=== PATIENT | female | born 1950 | race Caucasian/White ===

== ENCOUNTER 2023-03-06 09:52 | Outpatient (RCR) | payer MEDICARE, SELFPAY | END 2023-05-08 16:05 | disposition home or self-care (01) | LOC: PT 09:52 | PROVIDERS: PCP Family Medicine; Visit Provider Psychiatry & Neurology Neurology | DX: M16.12 Unilateral primary osteoarthritis, left hip (principal); R53.1 Weakness; M54.17 Radiculopathy, lumbosacral region | CPT/HCPCS: 97012; 97110; 97140 ==

== ENCOUNTER 2023-03-07 10:02 | Outpatient (OUT) | payer MEDICARE, SELFPAY ==
--- NOTE | 2023-03-07 10:07 | MM_ITS ---
Patient: DARYL KRISHNAN Exam Date: 03/07/2023 : 1950 Gender:F Ordering : DR Sean Bernabe . Admission #: [id number] Family : DR KALLIE CHASE M.D. Order #: [id number] CLICK HERE TO VIEW EXAM RADIOLOGY REPORT PROCEDURE: MM TOMOSYNTHESIS SCREENING BI COMPARISON: MG MAMM SCREEN 3D ARIANA CAD, 02/19/2021. INDICATIONS: Breast Cancer Screening By Mammogram Z12.31 Calculator Name NCI Breast Cancer Risk Assessment Tool 5 Year Breast Cancer Risk 3.50% Lifetime Breast Cancer Risk 8.80% Personal Breast Cancer No Personal Ovarian Cancer No Treatments None Family Cancers Sister with breast cancer at age 55. LOCATION: [facility] BREAST COMPOSITION: Extremely dense, which lowers the sensitivity of mammography. FINDINGS: DIAGNOSTIC CATEGORY 1--NEGATIVE. RIGHT BREAST: No significant suspicious finding. No significant change has occurred. LEFT BREAST: No significant suspicious finding. No significant change has occurred. RECOMMENDATIONS: ROUTINE MAMMOGRAM AND CLINICAL EVALUATION IN 12 MONTHS. PLEASE NOTE: A NORMAL MAMMOGRAM DOES NOT EXCLUDE THE POSSIBILITY OF BREAST CANCER. A CLINICALLY SUSPICIOUS PALPABLE LUMP SHOULD BE BIOPSIED. Dictated by: Jef Krishnan M.D. on 03/07/2023 at 15:21 Approved by: Jef Krishnan M.D. on 03/07/2023 at 15:24
--- NOTE | 2023-03-07 10:09 | XR_ITS ---
[address] [address] Patient Name: DARYL SABILLON MRN: [id number] date: 1950 Sex: F Assigned Patient Location: [facility] Current Patient Location: [facility] Accession/Order Number: [id number] Exam Date: 03/07/2023 10:20 Report Date: 03/07/2023 11:10 At the request of: PASTOR CRISTINA Procedure: XR DEXA axial skeleton EXAMINATION: XR DEXA axial skeleton HISTORY: Post Menopausal Z78.0 COMPARISON: DEXA bone densitometry 02/19/2021 TECHNIQUE: Dual-energy X-ray absorptiometry (DXA) was performed. FINDINGS: SPINE ANALYSIS: Average bone mineral density is 0.818 g/cm2. T-score (standard deviation relative to young adult mean): -3.0 . +1.4% change since prior study. HIP ANALYSIS: Lowest bone mineral density is within the right femoral trochanter, 0.508 g/cm2. T-score (standard deviation relative to young adult mean): -3.0 . -11.4% change since prior study. IMPRESSION: World [employer] Classification: Osteoporosis - High Fracture Risk Electronically authenticated by: JACK SABILLON Date: 03/07/2023 11:10
== END 2023-03-07 10:03 ==
LOC: MAMMO 10:03
PROVIDERS: PCP Family Medicine; Visit Provider Obstetrics & Gynecology
DX: Z12.31 Encounter for screening mammogram for malignant neoplasm of breast (principal); Z80.3 Family history of malignant neoplasm of breast; M81.0 Age-related osteoporosis without current pathological fracture; Z78.0 Asymptomatic menopausal state
CPT/HCPCS: 77063; 77067; 77080

== ENCOUNTER 2023-05-07 13:59 | Outpatient (OUT) | payer MEDICARE, SELFPAY ==
--- NOTE | 2023-05-07 14:49 | CA_ITS ---
Patient: DARYL SABILLON Exam Date: 05/07/2023 : 1950 Gender:F Ordering : BRENNA BROUSSARD Admission #: [id number] Family : ELVA DARDEN Order #: [id number] CLICK HERE TO VIEW EXAM ECHOCARDIOGRAM REPORT PROCEDURE: CA ECHO DOPPLER COMPLETE INDICATIONS: Hx: MV replacement, Mitral valve insufficiency COMPARISON: None. DESCRIPTION: COMPLETE ECHOCARDIOGRAM Real-time transthoracic echocardiography with 2D, M-mode, spectral and color flow Doppler performed. QUALITY: Technical quality was good. LEFT VENTRICLE: Normal chamber size. Mild concentric left ventricular hypertrophy. Global left ventricular systolic function is normal. LV EF: Estimated left ventricular ejection fraction is 75%. DIASTOLIC: Normal diastolic function. ATRIAL SEPTUM: LEFT ATRIUM: Mild dilatation. RIGHT ATRIUM: Mild dilatation. RIGHT VENTRICLE: Normal chamber size. Normal right ventricular systolic function. TRICUSPID VALVE: Normal mobility and thickness. No stenosis with mild to moderate regurgitation. No evidence of pulmonary hypertension. RVSP 28 mmHg MITRAL VALVE: No evidence of mitral valve stenosis. Mean diastolic gradient is 2 mmHg at a heart rate of 55 bpm. Trivial mitral regurgitation. Mitral valve ring repair is well seated in the Mitral position. Thickening of the anterior mitral leaflet. AORTIC VALVE: Normal trileaflet appearance. Mildly calcified aortic valve. Normal leaflet mobility. No evidence of aortic valve stenosis. Mild aortic regurgitation. AORTIC ROOT: Normal diameter and appearance. PULMONIC VALVE: Normal thickness and mobility. No stenosis. Mild regurgitation. PERICARDIUM: No evidence of pericardial effusion. IVC: Collapses with inspirations. Normal size. PLEURA: CONCLUSION: 1. Mild concentric left regular hypertrophy with normal systolic function. LVEF is 75%. 2. Normal right ventricular size and systolic function. 3. Mitral valve is status post ring repair with no stenosis and no significant regurgitation. 4. Mild aortic and pulmonic regurgitation. 5. Mild to moderate tricuspid regurgitation. 6. Normal right-sided pressures. 7. No pericardial effusion. Adult Echocardiography Procedure Report Left Ventricle LVEDD (3.7 - 5.6 cm): 3.81 cm LVESD (2.2 - 4.0 cm): 2.41 cm LVIVS thickness (0.6 - 1.2 cm): 1.09 cm LVPW thickness (0.5 - 1.0 cm): 1.11 cm e': 0.10 m/s E - e': 10.02 LVOT Max Gradient: 4.99 mm[Hg] LVOT Area (cm2): 1.12 m/s Peak Velocity (LVOT): 1.12 m/s Mean Velocity (LVOT): 0.65 m/s LVOT Diameter 1.90 cm Left Ventricular Ejection Fraction: 75 % Left Atrium LA Volume Index (2D A2C): 43.19 ml/m2 Left Atrium Systolic Dimension: 3.62 cm Mitral Valve MV E to A Ratio: 1.14 Mitral Valve A-Wave Peak Velocity: 0.90 m/s Mitral Valve E-Wave Peak Velocity: 1.03 m/s Right Ventricle RV Internal Diastolic Dimension: 3.08 cm Aorta AO Root Diam: 3.02 cm Ascending Ao Diam: 2.57 cm Aortic Valve AoV Area (Peak Andrea): 2.60 cm2, 2.60 cm2 AoV Area (VTI): 2.79 cm2, 2.79 cm2 Deceleration Charlotte: 1.21 m/s2 Pressure Half-Time: 916.50 ms Peak Velocity(Antegrade Flow): 1.22 m/s Peak Gradient(Antegrade Flow): 5.93 mm[Hg] Mean Velocity(Antegrade Flow): 0.90 m/s Mean Gradient(Antegrade Flow): 3.53 mm[Hg] Velocity Time Integral: 25.77 cm Tricuspid Valve Peak Velocity (Regurgitant Flow): 2.40 m/s, 2.53 m/s, 2.13 m/s Pulmonic Valve Peak Velocity: 0.79 m/s Peak Gradient: 2.35 mm[Hg], 2.60 mm[Hg] Right Atrium Right Atrium Systolic Pressure: 48.52 ml, 48.52 ml Dictated by: Rodo Vallejo M.D. on 05/08/2023 at 17:05 Approved by: Rodo Vallejo M.D. on 05/08/2023 at 17:10
== END 2023-05-07 14:00 | disposition home or self-care (01) ==
LOC: CARD 13:59
PROVIDERS: PCP Family Medicine; Visit Provider Internal Medicine Cardiovascular Disease
DX: I34.0 Nonrheumatic mitral (valve) insufficiency (principal); Z95.2 Presence of prosthetic heart valve
CPT/HCPCS: 93306

== ENCOUNTER 2023-05-14 16:44 | Emergency (ER) | payer MEDICARE, SELFPAY ==
[2023-05-14 16:52] VITALS: BP 139/83; PULSE 68; RESP 14; TEMP 36.6; O2SAT 99; BMI 18.9
--- NOTE | 2023-05-14 17:08 | ED.GENADUL1 ---
Documented by User: ARINA Swift 05/14/23 18:35 HPI - General Adult General Chief complaint: Extremity Injury, Upper Stated complaint: UPPER EXTREMITY SWELLING, BITE Time Seen by Provider: 05/14/23 17:07 Source: patient Mode of arrival: walk-in Limitations: no limitations History of Present Illness HPI narrative: patient is a 72-year-old female who presents to the emergency department for the evaluation of increasing swelling and redness to her right upper extremity after a sting to the right index finger at home. She states approximately three hours ago she was stung by something on her right index finger, she states shortly after she developed swelling and redness of the fingers and hand. She states in the last hour she was concerned because she has noted hives and itching extending up the right arm and her axilla feels swollen. She denies any throat swelling, difficulty breathing or wheezing. No medications were taken prior to arrival. She has not lost sensation to the right upper extremity. Related Data Previous Rx's Medication Instructions Recorded famotidine 20 mg tablet (Pepcid) 20 mg PO BID #10 tabs 05/14/23 hydroxyzine HCl 25 mg tablet 25 mg PO Q6H PRN itching #20 tabs 05/14/23 methylprednisolone 4 mg tablets in See Rx Instructions .Route 05/14/23 a dose pack (Medrol (Archie)) .COMPLEX #21 ea Allergies Allergy/AdvReac Type Severity Reaction Status Date / Time keflex Allergy Uncoded 05/14/23 16:51 Review of Systems ROS Constitutional Denies: fever or chills Ears, nose, mouth, and throat Denies: throat pain Cardiovascular Denies: chest pain Respiratory Denies: shortness of breath, cough or wheezing Gastrointestinal Denies: nausea or vomiting Musculoskeletal Denies: back pain Integumentary/Breast Reports: rash and redness Allergic/Immunologic Reports: hives; Denies: throat swelling, tongue swelling, facial swelling or wheezing PFSH PFSH Social History Smoking status: Never smoker Exam Narrative Exam Narrative: Gen.: Awake, alert, in no distress Head: Normocephalic, atraumatic ENT: Moist mucous membranes; no swelling of the lips or tongue noted. Airway widely open and patent. No stridor Respiratory: No respiratory distress, lungs clear bilaterally; no wheezing or stridor Cardio: Regular rate and rhythm Extremities: Moves extremities equally Psych: Normal mood and affect Neuro: No focal neuro deficit Skin: Warm, dry. right hand is diffusely edematous and erythematous extending to the wrist. Small raised area noted to the right index finger with no evidence of retained stinger. No drainage noted. Normal flexion and extension of the fingers of the right hand. 2+ right radial pulse. Urticaria noted to the volar aspect of the right forearm with mild edema noted in the right axilla. No open wounds or drainage. Constitutional Vital Signs, click to edit/add: Last Vital Signs Temp 98 F 05/14/23 16:52 Pulse 68 05/14/23 16:52 Resp 14 05/14/23 16:52 BP 139/83 05/14/23 16:52 Pulse Ox 98 05/14/23 19:00 O2 Del Method Room Air 05/14/23 19:00 Course Vital Signs Vital signs: Vital Signs Temperature 98 F 05/14/23 16:52 Pulse Rate 68 05/14/23 16:52 Respiratory Rate 14 05/14/23 16:52 Blood Pressure 139/83 05/14/23 16:52 Pulse Oximetry 99 05/14/23 16:52 Oxygen Delivery Method Room Air 05/14/23 16:52 Temperature 98 F 05/14/23 16:52 Pulse Rate 68 05/14/23 16:52 Respiratory Rate 14 05/14/23 16:52 Blood Pressure 139/83 05/14/23 16:52 Pulse Oximetry 98 05/14/23 19:00 Oxygen Delivery Method Room Air 05/14/23 19:00 Medical Decision Making Lab Data Labs: patient treated with IV fluids, Solu-Medrol, Pepcid. On reevaluation by attending physician, swelling to the right axilla has improved. Patient states that she can see her knuckles, she was encouraged to elevate the hand over the next day will be treated for localized ALLERGIC reaction and urticaria with Medrol Dosepak, antihistamines, Pepcid. Follow-up with PCP and return to the Emergency Room if symptoms change or worsen. Discharge Plan Discharge Chief Complaint: Extremity Injury, Upper Clinical Impression: Urticaria, Swelling of right hand, Insect sting Patient Disposition: Home, Self-Care Time of Disposition Decision: 18:34 Condition: Good Prescriptions / Home Meds: New famotidine [Pepcid] 20 mg tablet 20 mg PO BID Qty: 10 0RF hydroxyzine HCl 25 mg tablet 25 mg PO Q6H PRN (Reason: itching) Qty: 20 0RF methylprednisolone [Medrol (Archie)] 4 mg tablets,dose pack See Rx Instructions .ROUTE .COMPLEX Qty: 21 0RF Rx Instructions: Taper as directed Instructions: Urticaria (ED), Insect Bite or Sting (ED) Stand Alone Forms: Portal Instructions Referrals: Anahi Branch MD [Primary Care Provider] - 1 week Discharge Date/Time: 05/14/23 19:07 Documented by User: Aden Monroe MD 05/14/23 19:49 HPI - General Adult General Chief complaint: Extremity Injury, Upper Stated complaint: UPPER EXTREMITY SWELLING, BITE Time Seen by Provider: 05/14/23 17:07 Related Data Previous Rx's Medication Instructions Recorded famotidine 20 mg tablet (Pepcid) 20 mg PO BID #10 tabs 05/14/23 hydroxyzine HCl 25 mg tablet 25 mg PO Q6H PRN itching #20 tabs 05/14/23 methylprednisolone 4 mg tablets in See Rx Instructions .Route 05/14/23 a dose pack (Medrol (Archie)) .COMPLEX #21 ea Allergies Allergy/AdvReac Type Severity Reaction Status Date / Time keflex Allergy Uncoded 05/14/23 16:51 PFSH PFS Social History Smoking status: Never smoker Exam Narrative Exam Narrative: Gen.: Awake, alert, in no distress Head: Normocephalic, atraumatic ENT: Moist mucous membranes; no swelling of the lips or tongue noted. Airway widely open and patent. No stridor Respiratory: No respiratory distress, lungs clear bilaterally; no wheezing or stridor Cardio: Regular rate and rhythm Extremities: Moves extremities equally Psych: Normal mood and affect Neuro: No focal neuro deficit Skin: Warm, dry. right hand is diffusely edematous and erythematous extending to the wrist. Small raised area noted to the right index finger with no evidence of retained stinger. No drainage noted. Normal flexion and extension of the fingers of the right hand. 2+ right radial pulse. Urticaria noted to the volar aspect of the right forearm with mild edema noted in the right axilla. No open wounds or drainage.Patient has no mucous membrane involvement of any rash or hives. Constitutional Vital Signs, click to edit/add: Last Vital Signs Temp 98 F 05/14/23 16:52 Pulse 68 05/14/23 16:52 Resp 14 05/14/23 16:52 BP 139/83 05/14/23 16:52 Pulse Ox 98 05/14/23 19:00 O2 Del Method Room Air 05/14/23 19:00 Course Vital Signs Vital signs: Vital Signs Temperature 98 F 05/14/23 16:52 Pulse Rate 68 05/14/23 16:52 Respiratory Rate 14 05/14/23 16:52 Blood Pressure 139/83 05/14/23 16:52 Pulse Oximetry 99 05/14/23 16:52 Oxygen Delivery Method Room Air 05/14/23 16:52 Temperature 98 F 05/14/23 16:52 Pulse Rate 68 05/14/23 16:52 Respiratory Rate 14 05/14/23 16:52 Blood Pressure 139/83 05/14/23 16:52 Pulse Oximetry 98 05/14/23 19:00 Oxygen Delivery Method Room Air 05/14/23 19:00 Medical Decision Making Lab Data Labs: patient treated with IV fluids, Solu-Medrol, Pepcid. On reevaluation by attending physician, swelling to the right axilla has improved. Patient states that she can see her knuckles, she was encouraged to elevate the hand over the next day will be treated for localized ALLERGIC reaction and urticaria with Medrol Dosepak, antihistamines, Pepcid. Follow-up with PCP and return to the Emergency Room if symptoms change or worsen. I, Dr Monroe, have reviewed the above progress note and course of action in the ER; agree with the above. I have personally seen and evaluated this patient, gone over history and physical, and discussed disposition and treatment plan with the patient. Discharge Plan Discharge Chief Complaint: Extremity Injury, Upper Clinical Impression: Urticaria, Swelling of right hand, Insect sting Patient Disposition: Home, Self-Care Time of Disposition Decision: 18:34 Condition: Good Prescriptions / Home Meds: New famotidine [Pepcid] 20 mg tablet 20 mg PO BID Qty: 10 0RF hydroxyzine HCl 25 mg tablet 25 mg PO Q6H PRN (Reason: itching) Qty: 20 0RF methylprednisolone [Medrol (Archie)] 4 mg tablets,dose pack See Rx Instructions .ROUTE .COMPLEX Qty: 21 0RF Rx Instructions: Taper as directed Instructions: Urticaria (ED), Insect Bite or Sting (ED) Stand Alone Forms: Portal Instructions Referrals: Anahi Branch MD [Primary Care Provider] - 1 week Discharge Date/Time: 05/14/23 19:07
[2023-05-14] MEDS: METHYLPREDNISOLONE SOD SUCC PF 125 MG/2 ML VIAL IVP (17:31)
[2023-05-14] MEDS: 0.9 % SODIUM CHLORIDE 1,000 ML 250 ML IV (17:31)
[2023-05-14] MEDS: FAMOTIDINE/PF 20 MG/2 ML VIAL IV (17:31)
[2023-05-14 19:00] VITALS: O2SAT 98
== END 2023-05-14 19:07 | disposition home or self-care (01) ==
PROVIDERS: Emergency Provider Emergency Medicine; PCP Family Medicine
DX: T63.481A Toxic effect of venom of other arthropod, accidental (unintentional), initial encounter (principal); L50.9 Urticaria, unspecified; R22.31 Localized swelling, mass and lump, right upper limb
CPT/HCPCS: 96374; 96375; 99284; J2930

== ENCOUNTER 2023-10-03 15:35 | Emergency (ER) | payer MEDICARE, SELFPAY ==
[2023-10-03 15:38] VITALS: BP 160/83; PULSE 67; RESP 18; TEMP 36.6; O2SAT 97; BMI 18.5
--- NOTE | 2023-10-03 15:51 | ECG_ITS ---
[facility] Test Date: 2023-10-03 Pat Name: DARYL SABILLON Department: Room: - Gender: Female [employer] Professional: : 1950 Requested By: KALLIE CHASE Order Number: [id number] Reading MD: KYLIE LORD Measurements Intervals Myra Rate: 67 P: 63 SC: 176 QRS: 16 QRSD: 82 T: 63 QT: 390 QTc: 406 Interpretive Statements 1100 Sinus rhythm 2420 RSR (QR) in lead V1/V2, consistent with right ventricular conduction delay 9130 borderline ECG No previous ECG available for comparison Electronically Signed On 10-06-2023 17:25:58 EST by KYLIE LORD
--- NOTE | 2023-10-03 15:51 | XR_ITS ---
The [address] [address] Patient Name: DARYL SABILLON MRN: [id number] date: 1950 Sex: F Assigned Patient Location: ER Current Patient Location: ED.MAIN Accession/Order Number: [id number] Exam Date: 10/03/2023 16:05 Report Date: 10/03/2023 16:45 At the request of: ELVA FAUSTIN Procedure: XR chest 1V EXAMINATION: XR chest 1V HISTORY: Shortness of breath COMPARISON: None. TECHNIQUE: Portable chest FINDINGS: The lung parenchyma is free of consolidation or infiltrate. No pneumothorax or pleural effusion. The cardiac, mediastinal and hilar contours are normal. The visualized osseous structures exhibit no gross abnormality. XR/XR chest 1V IMPRESSION: No acute cardiopulmonary abnormality. Electronically authenticated by: CHELA BAUTISTA Date: 10/03/2023 16:45
--- NOTE | 2023-10-03 16:20 | ED.URI1 ---
HPI - URI/Sore Throat General Chief Complaint: Upper Respiratory Infection Stated Complaint: RESP Time Seen by Provider: 10/03/23 15:51 Limitations: no limitations History of Present Illness HPI Narrative: 72-year-old female presents to emergency room with chief complaint of shortness of breath. Patient [facility] and became short of breath. She was told she Tested positive for Covid. They checked her oxyygenation and thought it was low. She was brought here to the emergency room. She is not hypoxic. Patient looks well at this time. She states she had slight panic attack which was told she had Covid and became short of breath. He states at that time she felt feverish and took Tylenol. She now feels betters resting comfortably here in emergency room. Related Data Previous Rx's Medication Instructions Recorded famotidine 20 mg tablet (Pepcid) 20 mg PO BID #10 tabs 05/14/23 hydroxyzine HCl 25 mg tablet 25 mg PO Q6H PRN itching #20 tabs 05/14/23 methylprednisolone 4 mg tablets in See Rx Instructions .Route 05/14/23 a dose pack (Medrol (Archie)) .COMPLEX #21 ea amoxicillin 500 mg capsule 500 mg PO BID 10 days #20 caps 10/03/23 Allergies Allergy/AdvReac Type Severity Reaction Status Date / Time keflex Allergy Uncoded 10/03/23 15:38 Review of Systems ROS Narrative All Systems are negative except as noted/marked. PFSH PFSH Social History Smoking status: Never smoker Exam Narrative Exam Narrative: Nurses note and vital signs reviewed and patient is not hypoxic. General: The patient appears well and in no apparent distress. Patient is resting comfortably on cart. Skin: Warm, dry, no pallor noted. There is no rash noted. Head: Normocephalic, atraumatic Eye: Normal conjunctiva, no drainage, EOMI. PERRL Ears, Nose, Mouth, and Throat: oral mucosa is moist. Nares patent. Mouth without vesicles. Ear canals patent. Tm's without Erythema Cardiovascular: Regular Rate and Rhythm Respiratory: Patient is in no distress, no accessory muscle use, lungs are clear to auscultation, no wheezing, rales or rhonchi Musculoskeletal: The patient has no evidence of calf tenderness, no pitting edema, symmetrical pulses noted bilaterally Neurological: A&O x4, normal speech Psychiatric: Cooperative Constitutional Vital Signs, click to edit/add: Last Vital Signs Temp 98 F 10/03/23 15:38 Pulse 67 10/03/23 15:38 Resp 18 10/03/23 15:38 BP 160/83 H 10/03/23 15:38 Pulse Ox 97 10/03/23 15:38 O2 Del Method Room Air 10/03/23 15:38 Course Vital Signs Vital signs: Vital Signs Temperature 98 F 10/03/23 15:38 Pulse Rate 67 10/03/23 15:38 Respiratory Rate 18 10/03/23 15:38 Blood Pressure 160/83 H 10/03/23 15:38 Pulse Oximetry 97 10/03/23 15:38 Oxygen Delivery Method Room Air 10/03/23 15:38 Temperature 98 F 10/03/23 15:38 Pulse Rate 67 10/03/23 15:38 Respiratory Rate 18 10/03/23 15:38 Blood Pressure 160/83 H 10/03/23 15:38 Pulse Oximetry 97 10/03/23 15:38 Oxygen Delivery Method Room Air 10/03/23 15:38 MDM - URI/Sore Throat MDM Narrative Medical decision making narrative: Patient presents here with a chief complaint of shortness of breath. She was brought here by squad for hypoxia. During the course of her stay here in the emergency room she has not been hypoxic on room air. She's been ninety-five dull a hundred percent. She is not short of breath. Chest x-ray and EKG were within normal limits. Patient was diagnosed today with Coban. She states she's had her symptoms for 4-5 days. She also complains of right ear pain and she is consistent to have otitis media on the right. Patient has a history of rupture on this ear before. She is requesting antibiotics. Patient will be discharged home with prescription for amoxicillin for otitis media. Diagnosed with otitis media and Covid Differential Diagnosis Differential diagnosis: Likely upper respiratory infection, otitis media and other Medical Records Attestation: I reviewed the patient's medical records. Lab Data Attestation: I reviewed the patient's lab results. Imaging Data Chest x-ray: Attestation: I have reviewed the pertinent imaging results. My impression: nad Radiologist's impression: MRN: [id number] date: 1950 Sex: F Assigned Patient Location: ER Current Patient Location: ED.MAIN Accession/Order Number: [id number] Exam Date: 10/03/2023 16:05 Report Date: 10/03/2023 16:45 At the request of: ELVA FAUSTIN Procedure: XR chest 1V EXAMINATION: XR chest 1V HISTORY: Shortness of breath COMPARISON: None. TECHNIQUE: Portable chest FINDINGS: The lung parenchyma is free of consolidation or infiltrate. No pneumothorax or pleural effusion. The cardiac, mediastinal and hilar contours are normal. The visualized osseous structures exhibit no gross abnormality. IMPRESSION: No acute cardiopulmonary abnormality. Electronically ECG Data Attestation: ?I have reviewed the pertinent ECG results. Interpretation: 1612 EKG shows normal sinus rhythm with a rate of 67 bpm [place] interval 176 ms QRS duration 80 ms, no STEMI Discharge Plan Discharge Chief Complaint: Upper Respiratory Infection Clinical Impression: COVID, Otitis media Patient Disposition: Home, Self-Care Prescriptions / Home Meds: New amoxicillin 500 mg capsule 500 mg PO BID 10 Days Qty: 20 0RF No Action famotidine [Pepcid] 20 mg tablet 20 mg PO BID Qty: 10 0RF hydroxyzine HCl 25 mg tablet 25 mg PO Q6H PRN (Reason: itching) Qty: 20 0RF methylprednisolone [Medrol (Archie)] 4 mg tablets,dose pack See Rx Instructions .ROUTE .COMPLEX Qty: 21 0RF Rx Instructions: Taper as directed Instructions: Ear Infection (ED), COVID-19 (Coronavirus Disease 2019) (ED) Stand Alone Forms: Portal Instructions Referrals: Anahi Branch MD [Primary Care Provider] - 1 week Discharge Date/Time: 10/03/23 16:26
== END 2023-10-03 16:26 | disposition home or self-care (01) ==
PROVIDERS: Emergency Provider Emergency Medicine Emergency Medical Services; PCP Family Medicine
DX: U07.1 COVID-19 (principal); H66.91 Otitis media, unspecified, right ear; R06.02 Shortness of breath
CPT/HCPCS: 71045; 80053; 83605; 87804; 87811; 93005; 99284

== ENCOUNTER 2023-12-24 06:56 | Outpatient (RCR) | payer MEDICARE, SELFPAY | END 2024-02-14 16:25 | disposition home or self-care (01) | LOC: PT 06:56 | PROVIDERS: PCP Family Medicine; Visit Provider Family Medicine | DX: M25.551 Pain in right hip (principal) | CPT/HCPCS: 97110; 97140; 97163 ==

== ENCOUNTER 2024-01-07 07:14 | Outpatient (OUT) | payer MEDICARE, SELFPAY ==
--- OUTSIDE RECORDS SUMMARY | 2024-01-07 07:17 | XMS_ITS | CCD ---
Author Organization [facility] Care Team Providers Care Loader Unloader Name Role Phone SELF, REFERRED Referring Unavailable MASROOR, CHELE Admitting Unavailable MASROOR, CHELE Attending Unavailable SELF, REFERRED Primary Care Unavailable KALLIE CHASE Primary Care Unavailable KALLIE CHASE Referring Unavailable MASROOR, CHELE Attending Unavailable MASROOR, CHELE Admitting Unavailable MASROOR, CHELE Surgeon Unavailable MS Procedure Practitioner Unavailab le SELF, REFERRED Referring Unavailable ELTAHAWY, EHAB A Admitting Unavailable ELTAHAWY, EHAB A Attending Unavailable SELF, REFERRED Primary Care Unavailable Kallie Chase Unavailable Vernell Alvarez II Unavailable MD Kallie Chase Primary Care Provider MD Vernell Alvarez II Attending Provider DR KALLIE CHASE Primary Care Unavailable MISC, DR HAMMOND Admitting Unavailable MISC, DR HAMMOND Attending Unavailable SALVATORE, DR KALLIE Benítez Primary Care Unavailable ELTAHAWY, DR RODRIGUEZ Admitting Unavailable ELTAHAWY, DR RODRIGUEZ Attending Unavailable ELTAHAWY, DR RODRIGUEZ Consulting Unavailable ELTAHAWY, DR RODRIGUEZ Admitting Unavailable CHASE, DR KALLIE Benítez Primary Care Unavailable ELTAHAWY, DR RODRIGUEZ Attending Unavailable ELTAHAWY, DR RODRIGUEZ Consulting Unavailable SALVATORE, DR KALLIE Benítez Primary Care Unavailable ANGELITO, LISA Admitting Unavailable ANGELITOJAILENELISA Attending Unavailable ANGELITO, LISA Consulting Unavailable SALVATORE, DR KALLIE Benítez Primary Care Unavailable KARASIK ., DR BAUMANN Attending Unavailabl e KARASIK ., DR BAUMANN Consulting Unavailabl e KARASIK ., DR BAUMANN Admitting Unavailabl e CHASE, DR KALLIE Benítez Primary Care Unavailable KARASIK ., DR BAUMANN Admitting Unavailabl e KARASIK ., DR BAUMANN Attending Unavailabl e SUREKHA, DR ASHFORD Consulting Unavailable SALVATORE, DR KALLIE Benítez Primary Care Unavailable SUREKHA, DR ASHFORD Admitting Unavailable SUREKHA, DR ASHFORD Attending Unavailable RAMANDEEP, DR JACK Mercer Consulting Unavailable BRENNA BROUSSARD Attending Unavailable SANDRA MELO Attending Unavailable KALLIE CHASE Primary Care UnavailSANDRA Mae Referring Unavailable MD Kallie Chase Primary Care Provider MD Joshua Phipps Attending Provider Jennifer Mccarthy Unavailable Melody Barry Admitting Unavail able Kallie Chase Primary Care Unavailable Melody Barry Attending Unavail able Kallie Chase Primary Care Unavailable Avelino Pena Attending Unavailable Avelino Pena Admitting Unavailable Joshua Phipps Admitting Unavailable Joshua Phipps Attending Unavailable Kallie Chase Primary Care Unavailable Vernell Alvarez II Attending UnavailKallie Jones Primary Care Unavailable Vernell Alvarez II Admitting UnavailKallie Jones MD Primary Care Provider DASIA RICARDO Attending Unavailable MELODY BARRY Referring Unavailable MELODY BARRY Attending Unavailable MELODY BARRY Attending Unavailable ELISA CRUZ Attending Jagjit le Allergies Allergy Classification Reported Allergen(s) Allergy Type Date of Onset Reaction(s) Facility (7 sources) Cephalexin Drug Allergy 1 leg swelling [facility] Repository (10 sources) Cephalexin; Translations: [CEPHALEXIN] Drug Allergy 7 [facility] (2 sources) Cephalosporins (Antibiotic) Drug allergy (disorder) 3 [facility] Repository Medications Current Medications Medication Drug Class(es) Dates Sig (Normalized) Sig (Original) alendronic acid 35 mg oral tablet (12 sources) Bisphosphonate take 1 tablet by jessica th once alendronate (Fosamax) 35 MG tablet TAKE ONE TABLET BY MOUTH ONCE WEELKY 0 Active take 1 tablet by mouth once kasi y Fosamax 70 MG 1 tablet 30 minutes before the first food, beverage or medicine of the day with plain water Orally Active aspirin 81 mg delayed release oral tablet (15 sources) Platelet Aggregation Inhibitor, Nonsteroidal Anti-inflammatory Drug Start: 08-11-2017 take 1 tablet by mouth once daily Aspirin (Aspir-81) 81 mg Tablet,Delayed Release (Dr/Ec) Active 1 TAB PO Daily August 11, 2017 1:00am ASPIRIN 81 MG ch ewable tablet 1 (one) time each day at the same time. 0 Active atorvastatin 80 mg oral tablet (13 sources) HMG-CoA Reductase Inhibitor atorvastatin (Lipito r) 80 MG tablet 1 (one) time each day at the same time. 0 Active take 1 tablet by jessica th every twenty-four hours Lipitor 10 MG 1 tablet Orally Once a day Active biotin 10 mg oral tablet (15 sources) Start: 05-05-2023 End: 05-04-2024 take 4 tablets by mouth in the morning biotin 10 MG tablet Indications: Lumbosacral radiculopathy , Carpal tunnel syndrome of right wrist , Disturbance of skin sensation , Carpal tunnel syndrome on left Take 4 tablets (40 mg) by mouth in the morning. 360 tablet 3 05/05/2023 05/04/2024 Active Start: 08-11-2017 take 10 mg by mouth once daily Biotin Active 10 MG PO Daily August 11, 2017 1:00am take 4 capsules by m outh every twenty-four hours Biotin 1 MG 4 tablets Orally Once a day Active take 4 tablets by mouth once larry ly Biotin 1 MG 4 tablets Orally Once a day Active cholecalciferol 0.125 mg oral tablet (3 sources) Vitamin D Start: 08-11-2017 take 1 tablet by mouth every week Cholecalciferol (Vitamin D3) (Vitamin D3) 5,000 unit Tablet Active 1 TAB PO every week August 11, 2017 1:00am clindamycin 300 mg oral capsule (2 sources) Lincosamide Antibacterial Start: 11-18-2023 End: 11-18-2023 take 2 capsules by mouth once, then take 1 capsule by mouth once at mealtime clindamycin (Cleocin) 300 MG capsule Indications: Primary osteoarthritis of right hip Take 2 capsules (600 mg) by mouth 1 time for 1 dose 2 tabs PO once 30-60 mins before dental procedure with food 2 capsule 3 11/18/2023 11/18/2023 Active dexamethasone 2 mg oral tablet (4 sources) Corticosteroid dexAMETHasone (Decadron) 2 MG tablet 1 (one) time each day at the same time. 0 Active docosahexaenoic acid 120 mg / eicosapentaenoic acid 180 mg oral capsule (4 sources) omega-3 (Fish Oi l) 1000 MG capsule 1 capsule 1 (one) time each day at the same time. 0 Active ergocalciferol 1.25 mg oral capsule (12 sources) Provitamin D2 Compound Start: 05-05-2023 End: 05-04-2024 take 1 capsule by mouth every week ergocalciferol (Vitamin D-2) 1.25 MG (28944 UT) capsule Indications: Vitamin D deficiency Take 1 capsule (1.25 mg) by mouth 1 (one) time per week. 12 capsule 3 05/05/2023 05/04/2024 Active folic acid 1 mg oral tablet (16 sources) Start: 08-11-2017 End: 05-04-2024 take 1 mg by mouth once daily Folic Acid Active 1 MG PO Daily August 11, 2017 1:00am Ilxh-Sosqb-Hf0-Dha-Ep a-Fish-St (Glucosamine Chondroitin Plus) 179-912-86-54 mg Capsule (3 sources) Start: 08-11-2017 take 1 capsule by mouth once daily Bien-Rwgfo-Zj4-Dha- Epa-Fish-St (Glucosamine Chondroitin Plus) 933-854-89-54 mg Capsule Active 1 CAP PO Daily August 11, 2017 12:00am Start: 08-11-2017 take 1 capsule by mouth once daily Bkxu-Mzfhp-Xl5-Ixg-Qzn-Mlag-St (Glucosam ine Chondroitin Plus) 481-729-90-54 mg Capsule Active 1 CAP PO Daily August 11, 2017 1:00am glucosamine sulfate 500 mg oral capsule (4 sources) Glucosamine 500 MG capsule 1 (one) time each day at the same time. 0 Active Glucosamine Chondroitin Plus - (8 sources) Glucosamine Chondroitin Plus - as directed Orally Active Ketoprofen (4 sources) Nonsteroidal Anti-inflammatory Drug Start: 05-05-20 End: 05-04-20 24 Ketoprofen 10 % cream Indications: Lumbosacral radiculopathy Apply 1 application topically every 8 (eight) hours. 120 g 11 05/05/2023 05/04/2024 Active L-METHYLFOLATE CALCIUM PO (4 sources) take 1 tablet by mouth in the morning L-METHYLFOLATE CALCIUM PO Take 1 tablet by mouth in the morning. 0 Active N-Cmugcvfnafwu-Egoba- B12-B6 (Metanx) 3-90.314-2-35 MG capsule (4 sources) Start: 05-05-20 End: 05-04-20 24 N-Cbqdoskltxce-Zaqyy- B12-B6 (Metanx) 3-90.314-2-35 MG capsule Indications: Lumbosacral radiculopathy , Disturbance of skin sensation Take 1 capsule by mouth in the morning. 90 capsule 3 05/05/2023 05/04/2024 Active levothyroxine sodium 0.05 mg oral tablet (16 sources) l-Thyroxine Start: 08-11-20 End: 12-15-19 take 50 ug by mouth once daily Levothyroxine Active 50 MCG PO Daily December 15, 2023 1:12pm take 1 tablet by mouth once kasi y Levothyroxine Sodium 50 MCG TAKE ONE TABLET BY MOUTH ONCE DAILY for 90 days Active magnesium gluconate 550 mg oral tablet (9 sources) take 1 tablet by jessica th every twenty-four hours Magnesium 30 MG 1 tablet with a meal Orally Once a day Active magnesium oxide 400 mg oral tablet (4 sources) Start: 05-05-2023 End: 05-04-2024 take 1 tablet by mouth at bedtime magnesium oxide (Mag-Ox) 400 MG tablet Indications: Lumbosacral radiculopathy Take 1 tablet (400 mg) by mouth at bedtime. 90 tablet 3 05/05/2023 05/04/2024 Active Mecobal-Levomefolat Ca-B6 Phos (Foltanx) 3-35-2 mg Tablet (3 sources) Start: 08-11-2017 take 1 tablet by mouth once daily Mecobal-Levomefolat Ca-B6 Phos (Foltanx) 3-35-2 mg Tablet Active 1 TAB PO Daily August 11, 2017 12:00am Start: 08-11-2017 take 1 tablet by jessica th once daily Mecobal-Levomefolat Ca-B6 Phos (Foltanx) 3-35-2 mg Tablet Active 1 TAB PO Daily August 11, 2017 1:00am melatonin 2.5 mg chewable tablet (4 sources) Melatonin 2.5 MG chewable tablet Chew. 0 Active meloxicam 15 mg oral tablet (7 sources) Nonsteroidal Anti-inflammatory Drug take 1 tablet by mouth every twenty-four hours Meloxicam 15 MG 1 tablet Orally Once a day Active Metanx 3-90.314-2-35 MG (9 sources) Metanx 3-90.314- 2-35 MG as directed Orally Active Misc Natural Products (YumVs Beet Root-Tart Diallo) 250-0.5 MG chewable tablet (4 sources) Misc Natural Products (YumVs Beet Root-Tart Diallo) 250-0.5 MG chewable tablet Chew. 0 Active naproxen 250 mg oral tablet (4 sources) Nonsteroidal Anti-inflammatory Drug naproxen (Naprosyn) 250 MG tablet Take by mouth. 0 Active Grovespring 3 (8 sources) Grovespring 3 Active Grovespring 3,6,9 Combination No.7 (Grovespring Dha) 92 mg (43 mg-22 [id number]) Tablet,Chewable (3 sources) Start: 7 take 1 tablet by mouth once daily Grovespring 3,6,9 Combination No.7 (Grovespring Dha) 92 mg (43 mg-22 [id number]) Tablet,Chewable Active 1 TAB PO Daily August 11, 2017 12:00am Start: 08-11-2017 take 1 tablet by jessica th once daily Grovespring 3,6,9 Combination No.7 (Grovespring Dha) 92 mg (43 mg-22 [id number]) Tablet,Chewable Active 1 TAB PO Daily August 11, 2017 1:00am sodium fluoride 0.011 mg/mg oral gel (4 sources) sodium flouride (Prevident, [place]) 1.1 % dental gel USE DIRECTED TWICE A DAY 0 Active tiZANidine 4 mg oral tablet (4 sources) Central alpha-2 Adrenergic Agonist take 1 tablet by mouth at bedtime tiZANidine (Zanaflex) 4 MG tablet TAKE ONE-HALF TO ONE TABLET BY MOUTH AT BEDTIME 0 Active Turmeric extract (12 sources) Turmeric (QC Diane reji Complex) 500 MG capsule 1 (one) time each day at the same time. 0 Active Turmeric Active valACYclovir 1000 mg oral tablet (4 sources) Herpesvirus Nucleoside Analog DNA Polymerase Inhibitor, Herpes Simplex Virus Nucleoside Analog DNA Polymerase Inhibitor, Herpes Zoster Virus Nucleoside Analog DNA Polymerase Inhibitor Start: 04-14-2023 valACYclovir (Valtrex) 1 g tablet Indications: Herpes simplex labialis Take 2 tablets twice a day x 1 day at first start of outbreak 4 tablet 11 04/14/2023 Active Vit A,C And Z-Amgips-Fukiqyyf (Eye Health Plus Lutein) 1,000 unit-200 mg-60 unit-2 mg Tablet (3 sources) Start: 08-11-2017 take 1 tablet by mouth once daily Vit A,C And A-Ikjtpk-Qpxifhob (Eye Health Plus Lutein) 1,000 unit-200 mg-60 unit-2 mg Tablet Active 1 TAB PO Daily August 11, 2017 12:00am Start: 08-11-2017 take 1 tablet by jessica th once daily Vit A,C And P-Vhbixi-Joidfhpf (Eye Health Plus Lutein) 1,000 unit-200 mg-60 unit-2 mg Tablet Active 1 TAB PO Daily August 11, 2017 1:00am dl-alpha tocopheryl acetate 100 unt oral capsule (5 sources) Start: 05-05-2023 End: 05-04-2024 take 1 capsule by mouth in the morning alpha tocopherol (Vitamin E) 100 units capsule Indications: Memory loss Take 1 capsule (100 Units) by mouth in the morning. 90 capsule 3 05/05/2023 05/04/2024 Active Vitamin E 1000 U NIT as directed Orally Active Vitamin E 1000 UNIT (7 sources) Vitamin E 1000 U NIT as directed Orally Active zinc gluconate 50 mg oral tablet (4 sources) take 1 tablet by jessica th in the morning zinc gluconate 50 MG tablet Take 50 mg by mouth in the morning. 0 Active Problems Active Problems Problem Classification Problem Date Documented Da te Episodic/Chronic Abdominal pain (8 sources) Pelvic and perineal pain; Translations: [Left lower quadrant pain] Onset: 06-12-2022 Episodic Acute bronchitis (4 sources) Acute bronchitis; Translations: [Acute bronchitis due to other specified organisms] Episodic Administrative/social admission (4 sources) Informing health aged or disabled care worker of test result; Translations: [Person consulting for explanation of examination or test findings] Episodic Chronic obstructive pulmonary disease and bronchiectasis (4 sources) Bronchitis; Translations: [Bronchitis, not specified as acute or chronic] Episodic Deficiency and other anemia (4 sources) 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 loss; Translations: [Iron deficiency anemia secondary to blood loss (chronic)] Onset: 05-18-2018 Chronic Disorders of lipid metabolism (4 sources) Hyperlipidemia, unspecified; Translations: [Mixed hyperlipidemia] Onset: 04-25-2023 Chronic Headache; including migraine (4 sources) Tension-type headache; Translations: [Tension-type headache, unspecified, not intractable] Onset: 02-18-2023 02-18-2023 Chronic Headache; including migraine (4 sources) Tension-type headache; Translations: [Tension-type headache, unspecified, intractable] Episodic Heart valve disorders (20 sources) Nonrheumatic mitral (valve) insufficiency; Translations: [Mitral valve regurgitation] Onset: 04-24-2022 Chronic Joint disorders and dislocations; trauma-related (4 sources) 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; Translations: [Traumatic arthropathy, left hip] Onset: 03-28-2016 Chronic Osteoarthritis (20 sources) Osteoarthritis of right hip joint; Translations: [Unilateral primary osteoarthritis, right hip] Onset: 2022 Chronic Osteoporosis (7 sources) Senile osteoporosis; Translations: [Age-related osteoporosis without current pathological fracture] Onset: 08-19-2023 Chronic Other aftercare (4 sources) History and physical examination, follow-up; Translations: [Encounter for follow-up examination after completed treatment for conditions other than malignant neoplasm] Episodic Other circulatory disease (4 sources) Elevated blood-pressure reading without diagnosis of hypertension; Translations: [Elevated blood-pressure reading, without diagnosis of hypertension] Episodic Other connective tissue disease (6 sources) History of total hip arthroplasty; Translations: [Presence of right artificial hip joint] Onset: 06-07-2023 06-09-2023 Chronic Other connective tissue disease (3 sources) Olecranon bursitis; Translations: [Olecranon bursitis, right elbow] Episodic Other connective tissue disease (1 source) Olecranon bursitis, right elbow; Translations: [Olecranon bursitis, right elbow] Episodic Other ear and sense organ disorders (4 sources) Mixed conductive and sensorineural hearing loss, bilateral; Translations: [Mixed conductive and sensorineural hearing loss, bilateral] Onset: 02-18-2023 02-18-2023 Chronic Other ear and sense organ disorders (4 sources) Mixed conductive AND sensorineural hearing loss; Translations: [Mixed conductive and sensorineural hearing loss, unspecified] Onset: 02-24-2023 02-24-2023 Chronic Other ear and sense organ disorders (1 source) Impacted cerumen, right ear Episodic Other ear and sense organ disorders (3 sources) Acute non-infective otitis externa; Translations: [Unspecified acute noninfective otitis externa, unspecified ear] Episodic Other ear and sense organ disorders (1 source) Unspecified acute noninfective otitis externa, unspecified ear; Translations: [Unspecified acute noninfective otitis externa, unspecified ear] Episodic Other female genital disorders (4 sources) Endometrial hyperplasia; Translations: [Endometrial hyperplasia, unspecified] Chronic Other female genital disorders (3 sources) Malposition of uterus; Translations: [Malposition of uterus] Episodic Other female genital disorders (1 source) Malposition of uterus; Translations: [Malposition of uterus] Episodic Other injuries and conditions due to external causes (1 source) Foreign body in left ear, initial encounter Episodic Other nervous system disorders (4 sources) Carpal tunnel syndrome of right wrist; Translations: [Carpal tunnel syndrome, right upper limb] Onset: 02-18-2023 02-18-2023 Chronic Other nervous system disorders (4 sources) Disorder of right femoral nerve; Translations: [Lesion of femoral nerve, right lower limb] Onset: 02-18-2023 02-18-2023 Chronic Other nervous system disorders (9 sources) Hip pain; Translations: [Other acute postprocedural pain] Onset: 02-18-2023 06-09-2023 Episodic Other non-traumatic joint disorders (2 sources) Pain in right hip; Translations: [Pain in joint, pelvic region and thigh] Episodic Other nutritional; endocrine; and metabolic disorders (3 sources) Body mass index less than 20; Translations: [Body mass index (BMI) 19.9 or less, adult] Episodic Other nutritional; endocrine; and metabolic disorders (1 source) Body mass index (BMI) 19.9 or less, adult; Translations: [Body mass index (BMI) 19 or less, adult] Episodic Other screening for suspected conditions (not mental disorders or infectious disease) (9 sources) Endometrium thickened; Translations: [Abnormal findings on diagnostic imaging of other specified body structures] Chronic Other screening for suspected conditions (not mental disorders or infectious disease) (9 sources) Patient encounter status; Translations: [Encounter for screening for malignant neoplasm of colon] Onset: 07-14-2017 Resolved: 02-13-2021 08-11-2017 Episodic Other skin disorders (1 source) Sebaceous cyst of skin; Translations: [Sebaceous cyst] 12-17-2023 Episodic Other skin disorders (1 source) Sebaceous cyst; Translations: [Sebaceous cyst] 12-17-2023 Episodic Other upper respiratory infections (5 sources) Acute maxillary sinusitis; Translations: [Acute recurrent maxillary sinusitis] Onset: 08-26-2016 Episodic Otitis media and related conditions (4 sources) Non-suppurative otitis media; Translations: [Unspecified nonsuppurative otitis media, bilateral] Episodic Peripheral and visceral atherosclerosis (4 sources) Peripheral vascular disease, unspecified; Translations: [PERIPHERAL VASCULAR DISEASE UNS] Onset: 05-23-2022 Chronic Residual codes; unclassified (4 sources) Postprocedural state finding; Translations: [Other specified postprocedural states] Episodic Residual codes; unclassified (4 sources) Postmenopausal state; Translations: [Asymptomatic menopausal state] Episodic Residual codes; unclassified (2 sources) Other specified postprocedural states; Translations: [Other specified postprocedural states] Onset: 08-04-2023 Episodic Skin and subcutaneous tissue infections (4 sources) Localized infection of skin AND/OR subcutaneous tissue; Translations: [Local infection of the skin and subcutaneous tissue, unspecified] Episodic Thyroid disorders (11 sources) Autoimmune thyroiditis; Translations: [Autoimmune thyroiditis] Onset: 10-18-2013 Chronic Unclassified (1 source) Pain in right hip; Translations: [Pain in right hip] Onset: 01-08-2023 Viral infection (5 sources) Disease caused by 2019-nCoV; Translations: [COVID-19] Past or Other Problems Problem Classification Problem Date Documented Da te Episodic/Chronic Heart valve disorders (10 sources) O/E - cardiac murmur; Translations: [Cardiac murmur, unspecified] Onset: 02-26-2021 Episodic Immunizations and screening for infectious disease (1 source) Encounter for screening for human papillomavirus (HPV); Translations: [ENC SCREENING HUMAN PAPILLOMAVIRUS] Onset: 09-16-2022 Episodic Malaise and fatigue (5 sources) Weakness; Translations: [Asthenia] Onset: 01-02-2023 02-18-2023 Episodic Melanomas of skin (9 sources) History of malignant melanoma of the skin; Translations: [Personal history of malignant melanoma of skin] Onset: 03-06-2020 02-24-2023 Episodic Open wounds of extremities (4 sources) Open wound of hand except fingers with complication; Translations: [Laceration with foreign body of right hand, initial encounter] Onset: 05-02-2017 Episodic Other and unspecified benign neoplasm (4 sources) Benign neoplasm of skin; Translations: [Other benign neoplasm of skin, unspecified] Onset: 02-18-2023 02-18-2023 Episodic Other ear and sense organ disorders (4 sources) Tinnitus; Translations: [Tinnitus, unspecified ear] Onset: 02-18-2023 02-18-2023 Episodic Other female genital disorders (3 sources) Noninflammatory disorder of the vagina; Translations: [Other specified noninflammatory disorders of vagina] Resolved: 02-26-2021 Episodic Other female genital disorders (1 source) Other specified noninflammatory disorders of vagina; Translations: [Other specified noninflammatory disorders of vagina] Resolved: 02-26-2021 Episodic Other gastrointestinal disorders (1 source) Other intra-abdominal and pelvic swelling, mass and lump; Translations: [OTH INTRA-ABD PELV SWELL MASS LUMP] Onset: 06-19-2022 Episodic Other nervous system disorders (4 sources) Skin sensation disturbance; Translations: [Unspecified disturbances of skin sensation] Onset: 02-18-2023 02-18-2023 Episodic Other non-traumatic joint disorders (4 sources) Arthralgia of the pelvic region and thigh; Translations: [Pain in unspecified hip] Onset: 05-25-2019 02-24-2023 Episodic Other skin disorders (4 sources) Other seborrheic keratosis; Translations: [Seborrheic keratosis] Onset: 04-09-2019 Episodic Residual codes; unclassified (4 sources) Family history of breast cancer; Translations: [Family history of malignant neoplasm of breast] Onset: 01-06-2014 Episodic Residual codes; unclassified (4 sources) Insomnia; Translations: [Insomnia, unspecified] Onset: 02-18-2023 02-18-2023 Episodic Residual codes; unclassified (4 sources) History of hernia repair; Translations: [Other specified postprocedural states] Onset: 10-17-2022 05-08-2023 Episodic Spondylosis; intervertebral disc disorders; other back problems (13 sources) Radiculopathy, lumbosacral region; Translations: [Lumbar radiculopathy] Onset: 08-27-2021 02-18-2023 Episodic Viral infection (8 sources) Herpesviral vesicular dermatitis; Translations: [Herpesviral vesicular dermatitis] Onset: 03-08-2015 02-18-2023 Episodic Results Test Name Value Interpretation Reference Range Facility XR Hip - right 3 [facility] Result: November 18, 2023 x-rays AP and lateral of the right hip demonstrate a Press-Fit hip replacement good position alignment without evidence of loosening fracture or failure Impression: Stable appearance of right hip replacement Kameron Barry D.O. [facility] Radiology Study observation (narrative) [facility] Coding Summaryon 10-07-2023 Coding Summary HTMLBase 64 OhiuyhpdTBz3dAc+PGhlY WQ+NB9IEAYaS23iqBUgtI 4aX6CYUDbIOknpTRGNXLx KRnFjhwOpGP9yaZGyFTVp IC8+CR3eWPQcSuicjFRih 5O3iSE8L82qkt8zRTwrmM P1FRPnAhPpkhecm9bnqBn 6IDcuNmluOyBt SITtpU79XSF4sS36Hp01m KMzbRXfw5bpzBu2UrSeQE RtVSR9oGalKIuap1MvIZO wL94hrMIzy1A6 NNRywHkomFEwQiRqbVE3i I8sWXqhxxzmi1rkyuuvDx b4oy69zRYml2R5eXN7M2D vzxX2OAWhdYZb UtuudJLFnY6lsbped5lnb qgxWeImKJEoTNl6HDw1TZ HbdFqfLaXoWJ24AQN4WRK pebTyQ8QtBZKd aYfiZhN7o6M0Wz5AV6QMI tdhB8NOIRJGQAhwqYU+PC 46jj44I8IuZreqGou9JBH dYDK7tBR4vH9h PHGiLDahw2E6uWZ5Z6Bap xNdhw7vx5exCYTwGTajI6 1vaMVpo9J2DXBfeRK2DJB qoOgjLnMehG40 Oyc+ZBRkzOcme5LfVkpmt 4gfo7qkrRa0OmlaNLCjku LbeDfrMWC7p1YjBr9yRBU ncZE6iSX0sH0i RrPqGoO1ZWtgH819VuBlv ZSiIdosG66vB1DizCG+PH JgPph7GCNvvUrgVX2pX1R hZGRpbmctbGVm tBwvET6dXMRnygkvSYZvu F9uJACuH5e3FpFoEaY1RG smM0EpISNizzjwAp93vD1 vNnHtZtC3XQte L4ErzvL6MKXayPCmTMguB RV1P24qb1B4EKFbVUNjPM V1iPA7hP6uaYgrxfvitZQ mdDsgdmVydGlj CMogDGkcR520TOZyoYsoE kNvZGluZyBEYXRlOiAgMD EvMDIvMjAyNDwvdGQ+PHR kIBD6xTqnGIXj cNBrBAzxTk8frRtqfIhuD X7yCYGyuesyJIIiyZ7dMO QaoMVmiWiyWA8xYSRzsny yo819YbXnOVY4 BVXhkMVlT9TklE8hHzTdQ GNhTNEkF5OmhFMuFQrlP0 29NJlcJpE7LPBgxaYmW8Z sLWFsaWduOiB0 t7D5Xn0Zd7ViycatA1Gsm YAfLeIkIzabZUz1V4TqKv wvdHI+XF34HTJqYR25IRb 3FZS2lFnkWIcw OVDhR4WujO1bBpAvZUGyA GRkOyc+PHRhYmxlIHdpZH RoPScxMDAlJyBzdHlsZT0 pYj0uMHTdVHAn vBiofPTqGsXdi2yqMLYoO OmuTY9pgOgpW6BpiXG6AH Jaz4n3Su09P93yP6YvsRI +IHJirUA4tTA3 jB5eIgBnXyG4DSjkO580Y fWwvUWpEjtai6mfb8ppwD p7LrY4EUYirwLmeIdnTQX 9h7TpLb00N92t IHdpZHRoPSIxNSUiIHZhb Xepsd1vnF8jPi9+PGNvbC K9sXN5dG4qDaWpXdN5MFw xZ210MhRbtJVd Nhika8rdb2yexLi5PeAaV HPzzkVnhQldMHF9u5ScXx 88I6FbuBwvj9ZoSlz7dc4 3cKQbk6Z4iWM0 X1ArVOObdsvqqVYmkIoaA J9nTYCdbawlYVMugJ9gPO RyV6i1JwUtTlS5WRzvT1Z oecD1IMIemBSz RMJfcQPAjI1neknyy6xlo hmgRfHdNEWcRWx5IEs4RD MthQbcBaPjGUR7ClK1GQO 2xZBieR2mvTyn ouhnpR4iIvv+WPW8sDFds OWYJD3gVkdndPU+PHRkIH U1nUiyEHimPALtiX4tVBB mA5a7BuHwHhT5 LXdhB4XrubY1FDSruQTwI DNdyDSKaE8auradp8jnwf gwCrOdZNHbHHn8JLm2DNQ saWduOiBsZWZ0 WpG4AKB8yPOviY6oyTwwk uouiW4bEst+QmlydGggRG Z9FPg2Y6JrMmh5FWKzkHs vCX6pwFOpHLio Rx6kcCyuyDeaVH2fUSDhl yiof121PxUxn3jeAHOefP YmZHoiCJZ5R24jr9J7SEE qIYHzSXH5cSY5 hF9jjRziazuycFBxjPnzd iZbsIfoSCnxGMokE091EG GfmTjpRuWsUVt2R8OvAwz 1QPTqiMmpQU0y tHOvMTlwGc1daZkrwMjkV C5aGWQdwzjcm235CvTlk9 bhXKZbpONnFQflYZY8Q41 af9G6DCRdYMOg GAI3pIZ9rQ5uySyfbbcbc GVmdDsgdmVydGljYWwtYW jdG249WQVwjOmhKaQbrCs 2O0NiTyx3FWMy kQakOH7sgVFyFZbfTw1cg QjlvIszOK2cHAYnfihce5 00EaEpo2ckNAUrtSDoMGz pSAD2T11qa7B4 URSuRLJfIIX0nZB5tB5zd GlnbjogbGVmdDsgdmVydG ofKJlxBKozI349RQIbwEy nPlBhdGllbnQg FTerLTp5W9MlFxlflMA+P D48RBLiER04sNPvnYTxi1 gaxFb0LyLsGIJaOXO3cVz oWAwug1GtSNAz F46pcQOzh0O0OOGuhNkng GSyZsGglNN8oW7zBXpqyz spp5omrrzfMquyv6aakd9 7lX08B68pYKml ZHRoPSIzMCUiIHZhbGlnb g8dgI1dNn4+NUApwGM2cW Z5hN5lNJAwFjU6GKpyQ85 9InRvcCIvPjxj t2yxl3vijFq2HgN1TKKyj sEupLerUSF3r6QvVk65B6 9sIHdpZHRoPSIyMCUiIHZ qsKorup1onL7n Ii8+WRPswCG2dPF2xW7qD yGzKwR0PKfuT427FbWdaF BwOnfdA22kT6EiwYB+PHR jMzr4UNMkaLml PR6phGRaHBdcUb9uMCE3Q bDeIlXvDDmbE5GuQVOoms ixpqbruLC4VFGoTDNauH1 8Ol0byWeaFYHc tXVHuW9rculfy8weqdpdB sLnDNDrYDw4KQq6TSKdxH zfJsFgSUF6EoH6IMZ1aAQ ngQ1xeIxhmrlv yB6wF4CoYPElyneeUo55d F5mYvNmXsI6VSluUch+Wk lFQkVSLCBKRUFOIEFOTjw vdGQ+PHRkIHN0 iLkqLKehGWNhwQ6bJARrL 1l6KhQcDlF4ZPvcI1MfSK TjctgoWs70hY4yAwUgCbB 6YKzzH1QaaeR4 ZLJrkQBlBLypEDG1N72nm 2H8KKXzMDBqVGN1lAY2qP 1hbGlnbjogbGVmdDsgdmV ydGljYWwtYWxp M824TFArcEcvDfVfMrWyY gS8CPK5Q9UqRma8STNcdI kyAX5frPGfHIidSo6ymDh ceQycFH5sDNRg cfznSREpcU7pJHZrlVQrn UxjXN2oYGGpoojag085Xd BcHGD0DEVebDEeM5QwqJ9 yOiAjMDAwMDAw K0WjoZLzZMxfU092REghE zA1YAYgucIrH1PeEMIxxB wgZgH6e5D4Uo58BmVCTQU yczwvdGQ+PHRk PQP1lGdeRGflNILqtQ5sF AQpQ1o2YjTyOwS2YLzcK6 OyJZEytfvaJl54rN0eTpD qThW7ESmqL1Jp waP4AGHybFYbRSuyVGS0R 28rv7T6YWXqGEJwIFI2zH U6dP6uoGrxbortxUJonXc gdmVydGljYWwt LNkaF933MQMbuDlgWuTIS UFMRTwvdGQ+WCTeILG3eA rdABrzOWMikD2dGWWmZ4c 5TdAaBgF4CDpn A8NvDZFcgcczJk77rL0hW gGaJuY5DMofF8HcbxK1FJ AenGEzDNdnJIZ5R46kr9R 1ASOrGZVwFRE3 aXB9kG8zcJuggthudGEkz DsgdmVydGljYWwtYWxpZ2 79OOEytHnbUu2YRE52WE2 7Y4ToJlhanTQn bGU+PHRhYmxlIHdpZHRoP LbmTIKbMjUpkNtuCE0xUd 9yZGVyLWNvbGxhcHNlOiB lf0gnOFDhDRek WX7rxZeqQ2YtePM3KBFeg 1o0Ar30F77sN7NoqNI+PG YrrNT6fXU7vJ7mLiReAdU 1MLmoV448XdHh cTGjHmmvk2kve5pwkHf3P sGaRBYzvqDgvJfgZTG4m5 MnYc97N54hZIpwMIHlSAS yMCUiIHZhbGln cs3xjA4kRk8+LQKloLG3w EX8iS8wFvLdHcD9TRgzI4 20LxAcjTBtRoypX90aS2F vdXA+PHRyPjx0 DDMxcKznZB5diIJyHAdqG e7oDIG3DcSmGiOwWDirS1 BrIDXkstxdoulocAC9RTK eHLQeoU91Jn4y zPrjWr8zRKKeTAH4MRXmc DQuW1JwvI7hQfYvREAiDH QaP6FxfGBwEVpeE481MSx wLkY6QWOyqpJi I5NeJSKkiDbsUvO5a9D1V v3GgSetqXWnFF3hIkXhLG c5Z7OoJew2JFEtaZiaUV7 tsIYqWFilWg0t aPqigTcbLR0yKEHssworv 717LaDet6vcMYIemEHpVC jiYHI4Q19em4R3FICdOHA tCNW6eUU8hA1q bGlnbjogbGVmdDsgdmVyd AiuYRxmKLwmX297LZTsfH biHcJDQmo6R3LbPrf8CVL ifUnmQN7egQYk QTowBx3ugKpamCunJG4pA KCbifwqx234NtLqb7sbHT YbvJFdORpnCKY4N12kx9F 7FLNeGTWdQQU8 pBR9dJ5yeNdbbciidBXvz DsgdmVydGljYWwtYWxpZ2 54EOYxhYwbFv5KMex4B9T rDjj3WJBdvYoi JM9hnHNyDAegJs4uvNzsn JsdMS4mQBZhdbwiz397In Dyj2qqSXNmlFQcHRkaAFH 4B94po2R4PVAy UHKyTAS9mAA8sD5wgOeiq jogbGVmdDsgdmVydGljYW xcDQtrU029YYMtuLvaWeG heWVyOjwvdGQ+ FZ97vp81B8XlJrfsDlk7J NJnSYE7kGR4dY0rNCNwSC ltx6J8eEA9K5DthhFise0 rs6wdHESdFOth Y29 (more content not included)... [facility] COVID/FLU/RSV RT-PCRon 10-03 SARS-CoV-2 (COVID-19) RNA GÓMEZ+probe Ql (Unsp spec) Positive [facility] Other COVID/FLU/RSV RT-PCR Negative [facility] Other Provider Orderson 09-25-2023 Provider Orders [id number] #[id number] Normal [facility] US LE Venous Duplex Righton 09-25-2023 LE Venous Duplex Right CLINICAL HISTORY: Right lower extremity pain and swelling. COMPARISON: None available. TECHNIQUE: Grayscale, compression, color and waveform Doppler analysis of the right lower extremity venous systems was performed. FINDINGS: There is no venous thrombosis, abnormal masses, fluid collections, or other findings of concern identified within the right lower extremity. IMPRESSION: NO RIGHT LOWER EXTREMITY DVT IDENTIFIED. Final Signed (Electronic Signature): Jack Khalil MD 09/25/23 1:37 pm Technologist: REJI JIM [facility] Alanine aminotransferase [En zymatic activity/volume] in Serum or PlasmaOrdered By: Joshua Phipps on 08-19-2023 ALT [Catalytic activity/Vol] 20 U/L 7-52 [facility] Albumin [Mass/volume] in Ser um or Plasma by Bromocresol green (BCG) dye binding methoOrdered By: Joshua Phipps on 08-19-2023 Albumin BCG dye [Mass/Vol] 4.0 g/dL 3.5-5.7 [facility] Alkaline phosphatase [Enzyma tic activity/volume] in Serum or PlasmaOrdered By: Joshua Phipps on 08-19-2023 ALP [Catalytic activity/Vol] 88 U/L 34-104 [facility] Aspartate aminotransferase [ Enzymatic activity/volume] in Serum or PlasmaOrdered By: Joshua Phipps on 08-19-2023 AST [Catalytic activity/Vol] 16 U/L 13-39 [facility] Basophils Auto (Bld) [#/Vol] Ordered By: Joshua Phipps on 08-19-2023 Basophils (Bld) [#/Vol] 0.0 10*3/uL 0.0-0.2 [facility] Basophils/100 WBC Auto (Bld) Ordered By: Joshua Phipps on 08-19-2023 Basophils/100 WBC (Bld) 0.5 % . [facility] Bilirubin.total [Mass/volume ] in Serum or PlasmaOrdered By: Joshua Phipps on 08-19-2023 Bilirubin [Mass/Vol] 0.4 mg/dL 0.3-1.0 [facility] Calcium [Mass/volume] in Ser um or PlasmaOrdered By: Joshua Phipps on 08-19-2023 Calcium [Mass/Vol] 8.9 mg/dL 8.6-10.3 [facility] Carbon dioxide, total [Moles /volume] in Serum or PlasmaOrdered By: Joshua Phipps on 08-19-2023 CO2 [Moles/Vol] 32.0 mmol/L 21.0-31.0 [facility] Chloride [Moles/volume] in S moe or PlasmaOrdered By: Joshua Phipps on 08-19-2023 Chloride [Moles/Vol] 105 mmol/L 98-107 [facility] Complete Blood Count Auto Di ffon 08-19-2023 Basophils (Bld) [#/Vol] 0.0 10*3/uL Normal 0.0-0.2 [facility] Comment on above: Result Comment: PERF ORMED BY: [place] [address] PATHOLOGIST CONSULTING SERVICES MANAGER KRISTINA ENNIS M.D. Performed By: #### C BC, MG, CMP, PHOS #### [address] Basophils/100 WBC (Bld) 0.5 % Normal . [facility] Comment on above: Performed By: #### C BC, MG, CMP, PHOS #### [address] Eosinophils (Bld) [#/Vol] 0.1 10*3/uL Normal 0.0-0.45 [facility] Comment on above: Performed By: #### C BC, MG, CMP, PHOS #### [address] Eosinophils/100 WBC (Bld) 1.7 % Normal . [facility] Comment on above: Performed By: #### C BC, MG, CMP, PHOS #### [address] Erythrocyte distribution width (RBC) [Ratio] 14.8 % Normal 11.9-15.3 [facility] Comment on above: Performed By: #### C BC, MG, CMP, PHOS #### [address] Hematocrit (Bld) [Volume fraction] 38.1 % Normal 34.0-46.4 [facility] Comment on above: Performed By: #### C BC, MG, CMP, PHOS #### [facility] [address] Hemoglobin (Bld) [Mass/Vol] 12.4 g/dL Normal 11.8-15.4 [facility] Comment on above: Performed By: #### C BC, MG, CMP, PHOS #### [address] Lymphocytes (Bld) [#/Vol] 1.5 10*3/uL Normal 1.00-4.8 [facility] Comment on above: Performed By: #### C BC, MG, CMP, PHOS #### [address] Lymphocytes/100 WBC (Bld) 22.9 % Normal . [facility] Comment on above: Performed By: #### C BC, MG, CMP, PHOS #### [address] MCH (RBC) [Entitic mass] 29.7 pg Normal 24.7-34.3 [facility] Comment on above: Performed By: #### C BC, MG, CMP, PHOS #### [address] MCV (RBC) [Entitic vol] 91.1 fL Normal 80-100 [facility] Comment on above: Performed By: #### C BC, MG, CMP, PHOS #### [address] Mean Corpuscular HGB Conc 32.6 g/dL Normal 32.0-35.0 [facility] Comment on above: Performed By: #### C BC, MG, CMP, PHOS #### [place] [address] [place] Monocytes (Bld) [#/Vol] 0.5 10*3/uL Normal 0.0-0.8 [facility] Comment on above: Performed By: #### C BC, MG, CMP, PHOS #### [place] [address] [place] Monocytes/100 WBC (Bld) 8.3 % Normal . [facility] Comment on above: Performed By: #### C BC, MG, CMP, PHOS #### [address] Neutrophils (Bld) [#/Vol] 4.4 10*3/uL Normal 1.8-7.7 [facility] Comment on above: Performed By: #### C BC, MG, CMP, PHOS #### [address] Neutrophils/100 WBC (Bld) 66.6 % Normal . [facility] Comment on above: Performed By: #### C BC, MG, CMP, PHOS #### [address] NRBC% 0.1 /100{WBC} Normal 0-0.5 [facility] Comment on above: Performed By: #### C BC, MG, CMP, PHOS #### [address] Platelet mean volume (Bld) [Entitic vol] 8.3 fL Normal 6.3-10.7 [facility] Comment on above: Performed By: #### C BC, MG, CMP, PHOS #### [address] Platelets (Bld) [#/Vol] 275 10*3/uL Normal 150-450 [facility] Comment on above: Performed By: #### C BC, MG, CMP, PHOS #### [address] RBC (Bld) [#/Vol] 4.18 10*6/uL Normal 3.60-5.00 [facility] Comment on above: Performed By: #### C BC, MG, CMP, PHOS #### [address] WBC (Bld) [#/Vol] 6.6 10*3/uL Normal 3.8-11.6 [facility] Comment on above: Performed By: #### C BC, MG, CMP, PHOS #### [facility] [address] Comprehensive Metabolic Pane kacey 08-19-2023 Albumin [Mass/Vol] 4.0 g/dL Normal 3.5-5.7 [facility] Comment on above: Performed By: #### C BC, MG, CMP, PHOS #### [facility] [address] Albumin/Globulin [Mass ratio] 1.7 {ratio} Normal [facility] Comment on above: Performed By: #### C BC, MG, CMP, PHOS #### [facility] [address] ALP [Catalytic activity/Vol] 88 U/L Normal 34-104 [facility] Comment on above: Performed By: #### C BC, MG, CMP, PHOS #### [facility] [address] ALT [Catalytic activity/Vol] 20 U/L Normal 7-52 [facility] Comment on above: Performed By: #### C BC, MG, CMP, PHOS #### [facility] [address] Anion gap [Moles/Vol] 7.2 mmol/L Normal 6.0-15.0 [facility] Comment on above: Performed By: #### C BC, MG, CMP, PHOS #### [facility] [address] AST [Catalytic activity/Vol] 16 U/L Normal 13-39 [facility] Comment on above: Performed By: #### C BC, MG, CMP, PHOS #### [facility] [address] Bilirubin [Mass/Vol] 0.4 mg/dL Normal 0.3-1.0 [facility] Comment on above: Performed By: #### C BC, MG, CMP, PHOS #### [facility] [address] Calcium [Mass/Vol] 8.9 mg/dL Normal 8.6-10.3 [facility] Comment on above: Performed By: #### C BC, MG, CMP, PHOS #### [address] Chloride [Moles/Vol] 105 mmol/L Normal 98-107 [facility] Comment on above: Performed By: #### C BC, MG, CMP, PHOS #### [address] CO2 [Moles/Vol] 32.0 mmol/L High 21.0-31.0 [facility] Comment on above: Performed By: #### C BC, MG, CMP, PHOS #### [address] Creatinine [Mass/Vol] 0.53 mg/dL Low 0.60-1.20 [facility] Comment on above: Performed By: #### C BC, MG, CMP, PHOS #### [address] GFR/1.73 sq M.predicted MDRD (S/P/Bld) [Vol rate/Area] mL/min/{1.73_m2} [facility] Comment on above: Performed By: #### C BC, MG, CMP, PHOS #### [address] Globulin (S) [Mass/Vol] 2.4 g/dL Normal [facility] Comment on above: Performed By: #### C BC, MG, CMP, PHOS #### [address] Glucose [Mass/Vol] 94 mg/dL Normal 70-100 [facility] Comment on above: Result Comment: [facility] Glucose Reference Range is dependent on time and content of last meal. Glucose of more than 200 mg/dL in a nonstressed, ambulatory subject supports the diagnosis of Diabetes Mellitus. ADA recommended reference range Performed By: #### C BC, MG, CMP, PHOS #### [address] [address] [place] Potassium [Moles/Vol] 4.2 mmol/L Normal 3.5-5.1 [facility] Comment on above: Performed By: #### C BC, MG, CMP, PHOS #### [facility] [address] Protein [Mass/Vol] 6.4 g/dL Normal 6.4-8.9 [facility] Comment on above: Performed By: #### C BC, MG, CMP, PHOS #### [facility] [address] Sodium [Moles/Vol] 140 mmol/L Normal 136-145 [facility] Comment on above: Performed By: #### C BC, MG, CMP, PHOS #### [facility] [address] Urea nitrogen [Mass/Vol] 21 mg/dL Normal 7-25 [facility] Comment on above: Performed By: #### C BC, MG, CMP, PHOS #### [facility] [address] [place] [address] Creatinine [Mass/volume] in Serum or PlasmaOrdered By: Joshua Phipps on 08-19-2023 Creatinine [Mass/Vol] 0.53 mg/dL 0.60-1.20 [facility] Eosinophils Auto (Bld) [#/Vo l]Ordered By: Joshua Phipps on 08-19-2023 Eosinophils (Bld) [#/Vol] 0.1 10*3/uL 0.0-0.45 [facility] Eosinophils/100 WBC Auto (Bl d)Ordered By: Joshua Phipps on 08-19-2023 Eosinophils/100 WBC (Bld) 1.7 % . [facility] Erythrocyte distribution wid th Auto (RBC) [Ratio]Ordered By: Joshua Phipps on 08-19-2023 Erythrocyte distribution width (RBC) [Ratio] 14.8 % 11.9-15.3 [facility] Globulin Calc (S) [Mass/Vol] Ordered By: Joshua Phipps on 08-19-2023 Globulin (S) [Mass/Vol] 2.4 g/dL [facility] Glucose [Mass/volume] in Ser um or PlasmaOrdered By: Joshua Phipps on 08-19-2023 Glucose [Mass/Vol] 94 mg/dL 70-100 [facility] Comment on above: ADA recommended refe rence rangeRandom Glucose Reference Range is dependent on time and content of last meal. Glucose of more than 200 mg/dL in a nonstressed, ambulatory subject supports the diagnosis of Diabetes Mellitus. Hematocrit Auto (Bld) [Volum e fraction]Ordered By: Joshua Phipps on 08-19-2023 Hematocrit (Bld) [Volume fraction] 38.1 % 34.0-46.4 [facility] Hemoglobin [Mass/volume] in BloodOrdered By: Joshua Phipps on 08-19-2023 Hemoglobin (Bld) [Mass/Vol] 12.4 g/dL 11.8-15.4 [facility] Leukocytes [#/volume] correc maryjane for nucleated erythrocytes in Blood by Automated counOrdered By: Joshua Phipps on 08-19-2023 WBC corrected for nucl RBC Auto (Bld) [#/Vol] 6.6 10*3/uL 3.8-11.6 [facility] Lymphocytes Auto (Bld) [#/Vo l]Ordered By: Joshua Phipps on 08-19-2023 Lymphocytes (Bld) [#/Vol] 1.5 10*3/uL 1.00-4.8 [facility] Lymphocytes/100 WBC Auto (Bl d)Ordered By: Joshua Phpips on 08-19-2023 Lymphocytes/100 WBC (Bld) 22.9 % . [facility] MCH Auto (RBC) [Entitic mass ]Ordered By: Joshua Phipps on 08-19-2023 MCH (RBC) [Entitic mass] 29.7 pg 24.7-34.3 [facility] MCHC Auto (RBC) [Mass/Vol]Or dered By: Joshua Phipps on 08-19-2023 MCHC (RBC) [Mass/Vol] 32.6 g/dL 32.0-35.0 [facility] MCV Auto (RBC) [Entitic vol] Ordered By: Joshua Phipps on 08-19-2023 MCV (RBC) [Entitic vol] 91.1 fL 80-100 [facility] Magnesiumon 08-19-2023 Magnesium [Mass/Vol] 2.0 mg/dL Normal 1.9-2.7 [facility] Comment on above: Result Comment: PERF ORMED BY: [facility] [address] [place] [address] PATHOLOGIST CONSULTING SERVICES MANAGER KRISTINA ENNIS M.D. Performed By: #### C BC, MG, CMP, PHOS #### [facility] [address] Magnesium [Mass/volume] in S moe or PlasmaOrdered By: Joshua Phipps on 08-19-2023 Magnesium [Mass/Vol] 2.0 mg/dL 1.9-2.7 [facility] Monocytes Auto (Bld) [#/Vol] Ordered By: Joshua Phipps on 08-19-2023 Monocytes (Bld) [#/Vol] 0.5 10*3/uL 0.0-0.8 [facility] Monocytes/100 WBC Auto (Bld) Ordered By: Joshua Phipps on 08-19-2023 Monocytes/100 WBC (Bld) 8.3 % . [facility] Neutrophils Auto (Bld) [#/Vo l]Ordered By: Joshua Phipps on 08-19-2023 Neutrophils (Bld) [#/Vol] 4.4 10*3/uL 1.8-7.7 [facility] Neutrophils/100 WBC Auto (Bl d)Ordered By: Joshua Phipps on 08-19-2023 Neutrophils/100 WBC (Bld) 66.6 % . [facility] No Panel InformationOrdered By: Joshua Phipps on 08-19-2023 Estimated GFR (CKD-EPI) > 60.0 mL/Min [facility] Creatinine Clearance (Chem N/A [facility] Nucleated erythrocytes [Pres ence] in Blood by Automated countOrdered By: Joshua Phipps on 08-19-2023 Nucleated RBC Auto Ql (Bld) 0.1 /100{WBC} 0-0.5 [facility] Phosphate [Mass/volume] in S moe or PlasmaOrdered By: Joshua Phipps on 08-19-2023 Phosphate [Mass/Vol] 3.9 mg/dL 2.5-4.5 [facility] Phosphoruson 08-19-2023 Phosphate [Mass/Vol] 3.9 mg/dL Normal 2.5-4.5 [facility] Comment on above: Performed By: #### C BC, MG, CMP, PHOS #### [facility] [address] Platelet mean volume Auto (B ld) [Entitic vol]Ordered By: Joshua Phipps on 08-19-2023 Platelet mean volume (Bld) [Entitic vol] 8.3 fL 6.3-10.7 [facility] Platelets Auto (Bld) [#/Vol] Ordered By: Joshua Phipps on 08-19-2023 Platelets (Bld) [#/Vol] 275 10*3/uL 150-450 [facility] Potassium [Moles/volume] in Serum or PlasmaOrdered By: Joshua Phipps on 08-19-2023 Potassium [Moles/Vol] 4.2 mmol/L 3.5-5.1 [facility] Protein [Mass/volume] in Ser um or PlasmaOrdered By: Joshua Phipps on 08-19-2023 Protein [Mass/Vol] 6.4 g/dL 6.4-8.9 [facility] RBC Auto (Bld) [#/Vol]Ordere d By: Joshua Phipps on 08-19-2023 RBC (Bld) [#/Vol] 4.18 10*6/uL 3.60-5.00 [facility] Serum or plasma albumin/glob ulin mass ratioOrdered By: Joshua Phipps on 08-19-2023 Albumin/Globulin [Mass ratio] 1.7 {ratio} [facility] Serum or plasma anion gap de terminationOrdered By: Joshua Phipps on 08-19-2023 Anion gap [Moles/Vol] 7.2 mmol/L 6.0-15.0 [facility] Sodium [Moles/volume] in Ser um or PlasmaOrdered By: Joshua Phipps on 08-19-2023 Sodium [Moles/Vol] 140 mmol/L 136-145 [facility] Urea nitrogen [Mass/volume] in Serum or PlasmaOrdered By: Joshua Phipps on 08-19-2023 Urea nitrogen [Mass/Vol] 21 mg/dL 7 [facility] WBC Auto (Bld) [#/Vol]Ordere d By: Joshua Phipps on 08-19-2023 WBC (Bld) [#/Vol] 6.6 10*3/uL 3.8-11.6 [facility] Office Visiton 04-25-2023 Follow-up visit [id number] Thiago Krishnan A 1950 F Date Provider Department Center 04/25/2023 [facility] R[facility] [place] Family History Problem Relation Age of Onset Transient ischemic attack Father Family Status - Relation Status Age at Father Level of Service:96265 MS OFFICE/OUTPATIENT ESTABLISHED MOD MDM 30-39 MIN Normal [facility] Provider Orderson 04-24-2023 Provider Orders [id number] #[id number] [facility] XR hip RT min 2V(w/wo pelvis )*on 01-08-2023 XR hip RT min 2V(w/wo pelvis)* [facility] [address] XRay Report Signed Patient: Thiago Krishnan MR#: [id number] : 1950 Acct:[id number] Age/Sex: 72 / F ADM Date: 01/08/23 Loc: [facility] Room: Type: [facility] Attending Dr: Vernell Alvarez II, MD Copies to: Vernell Alvarez MD Ordering Provider: Vernell Alvarez MD Date of Service: 01/08/23 XR/XR hip RT min 2V(w/wo pelvis)*: Right hip pain 2 views of the RIGHT hip with single view pelvis plain film COMPARISON:None HISTORY:RIGHT hip pain for 2 years ACUTE FINDINGS:None DEGENERATIVE CHANGE:Marked narrowing of the RIGHT hip joint with surgical scarring and cystic changes and marginal spurring identified. Marked narrowing of the LEFT are present with joint space narrowing and marginal spurring. No articular surface collapse. Mild SI joint degeneration. SOFT TISSUE FINDINGS:Unremarkable JOINT EFFUSION:None POSTOP CHANGES:None BONY MINERALIZATION:[place] te Atherosclerosis noted. 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 Impression dictated by: Aden Avilez M.D.01/08/2023 2:32 PM Dictation Location: [place] [address] Transcribed By: [facility] 01/08/23 143 Dictated By: Aden Avilez DO 01/08/23 143 Signed By: 01/08/23 143 [facility] PAP ACOG PANEL 2: 30 to 65on 09-22-2022 . . Normal [facility] Comment on above: Performed By: #### [id number] #### [facility] [address] [place] [address] Dr. Bree Scott Age Gdln ACOG Testing Comment Normal [facility] Comment on above: Result Comment: <21 or >65 or no age provided Performed By: #### [id number] #### [facility] [address] [place] [address] [address] Bree Scott DIAGNOSIS: Comment [facility] Comment on above: Result Comment: NEGA TIVE FOR INTRAEPITHELIAL LESION OR MALIGNANCY. CELLULAR CHANGES ASSOCIATED WITH ATROPHY ARE PRESENT. Performed By: #### [id number] #### [facility] [address] [address] [address] Bree Scott Methodology: Comment [facility] Comment on above: Result Comment: This liquid based ThinPrep(R) pap test was screened with the use of an image guided system. Performed By: #### [id number] #### [facility] [address] [place] [address] Dr. Bree Scott Note: Comment [facility] Comment on above: Result Comment: The Pap smear is a screening test designed to aid in the detection of premalignant and malignant conditions of the uterine cervix. It is not a diagnostic procedure and should not be used as the sole means of detecting cervical cancer. Both false-positive and false-negative reports do occur. . Performed By: #### [id number] #### [facility] 46 [place] [address] Dr. Bree Scott Performed by: Comment Normal [facility] Comment on above: Result Comment: Cherri Rodriguez, Veterinary Technician Assistant (ASCP) Performed By: #### [id number] #### [facility] [address] [place] [address] Dr. Bree Scott Specimen adequacy: Comment Normal [facility] Comment on above: Result Comment: Sati sfactory for evaluation. Endocervical component may not be distinguished in cases of atrophy. Performed By: #### [id number] #### [facility] [address] [place] [address] Dr. Bree Scott CREATININEon 06-12-2022 Creatinine [Mass/Vol] 0.67 mg/dL Normal 0.55-1.02 [facility] Comment on above: Performed By: #### C HAYLEY #### [facility] [address] [place] [address] Dr. Bree Scott EGFR-AF VIETNAMESE >60 Normal >=60 [facility] Comment on above: Performed By: #### C HAYLEY #### [facility] [address] [place] [address] Dr. Bree Scott EGFR-NON AF VIETNAMESE >60 Normal >=60 [facility] Comment on above: Performed By: #### C HAYLEY #### [facility] [address] [place] [address] Dr. Bree Scott CTA ABD/PELVIS WO W CONon CTA ABD/PELVIS WO W CON EXAMINATION: CTA ABD/PELVIS WO W CON HISTORY: Abdominal aortic aneurysm without rupture ; right groin pain COMPARISON: CT pelvis without contrast 08/18/2019 TECHNIQUE: Axial, Coronal, and Sagittal CT images without and with IV contrast. Multi-planar/3-D imaging to optimize visualization of vascular anatomy. Dose reduction techniques were achieved by using automated exposure control and/or adjustment of mA and/or kV according to patient size and/or use of iterative reconstruction technique. FINDINGS: AORTA/VASCULAR: Moderate calcified and noncalcified plaque within the aorta without significant narrowing. Minimal fusiform dilation of the distal aorta, 2.3 cm in diameter. CELIAC ARTERY: Normal celiac vessels. SMA: Normal mesenteric vessels. RENAL ARTERIES: Normal renal vessels. LUNG BASES: No visible pulmonary or pleural disease. LIVER: No enlargement, atrophy, abnormal density, or significant focal lesion. BILIARY: No visible dilatation or calcification. PANCREAS: No lesion, fluid collection, ductal dilatation, or atrophy. SPLEEN: No enlargement or focal lesion. ADRENALS: No mass or enlargement. KIDNEYS: No mass, obstruction, or calcification. BOWEL/MESENTERY: No visible mass, obstruction, or bowel wall thickening. RETROPERITONEUM: No mass or adenopathy. LYMPH NODES: No adenopathy. URINARY BLADDER: No visible focal wall thickening, lesion, or calculus. PELVIC ORGANS: No visible mass. Pelvic organs appropriate for patient age. ABDOMINAL WALL: No mass or hernia. BONES: Stable sclerotic density within the left iliac wing, likely bone island. Advanced degenerative changes of the hip joints bilaterally. OTHER: Negative. IMPRESSION: 1. Minimal fusiform aneurysmal dilation of the infrarenal aorta. Moderate atherosclerotic disease. 2. Marked degenerative changes of the hip joints. Electronically authenticated by: JACK KRISHNAN Date: 2022-06-12 21:49 Normal [facility] US EXT NON VASC LIMITED RTon 05-21-2022 US EXT NON VASC LIMITED RT EXAMINATION: US EXT NON VASC LIMITED RT HISTORY: Pelvic and perineal pain COMPARISON: No relevant comparison available. FINDINGS: Geographic shaped complex hypodensity within right inguinal region corresponding to patient's area of pain, 1.7 x 1.3 x 1.1 cm. This lies adjacent the iliac artery but does not appear directly connected to the artery or demonstrate internal blood flow or increased surrounding blood flow. A few benign-appearing lymph nodes noted within the right groin. No thrombus within the iliac vein. IMPRESSION: 1. Suspect small, old hematoma adjacent the right iliac artery; likely secondary to prior heart catheterization. This correspond to patient's area of tenderness during imaging. Electronically authenticated by: JACK KRISHNAN Date: 2022-05-21 10:04 Normal [facility] CBC AUTO DIFFon 04-24-2022 BASO # 0.0 103/ul Normal 0.0-0.1 [facility] Comment on above: Performed By: #### C BC #### [facility] [address] [place] [address] Dr. Bree Scott Basophils/100 WBC (Bld) 0.6 % Normal 0.2-2.0 [facility] Comment on above: Performed By: #### C BC #### [facility] [address] [place] [address] Dr. Bree Scott EO # 0.2 103/ul Normal 0.0-0.7 [facility] Comment on above: Performed By: #### C BC #### [facility] [address] [place] [address] Dr. Bree Scott Eosinophils/100 WBC (Bld) 2.6 % Normal 0.9-7.0 [facility] Comment on above: Performed By: #### C BC #### [facility] [address] [place] [address] Dr. Bree Scott Erythrocyte distribution width (RBC) [Ratio] 13.3 % Normal 11.0-15.0 [facility] Comment on above: Performed By: #### C BC #### [facility] [address] [place] [address] Dr. Bree Scott Hematocrit (Bld) [Volume fraction] 40.5 % Normal 36.0-48.0 [facility] Comment on above: Performed By: #### C BC #### [facility] [address] [place] [address] Dr. Bree Scott Hemoglobin (Bld) [Mass/Vol] 13.1 g/dL Normal 12.0-16.0 [facility] Comment on above: Performed By: #### C BC #### [facility] [address] [place] [address] Dr. Bree Scott IG # 0.01 10e3/ul Normal 0.00-0.03 [facility] Comment on above: Performed By: #### C BC #### [facility] [address] [place] [address] Dr. Bree Scott IG % 0.2 % Normal 0.0-0.5 [facility] Comment on above: Performed By: #### C BC #### [facility] [address] [address] [address] Bree Scott LYMPH # 2.1 103/ul Normal 1.2-3.8 [facility] Comment on above: Performed By: #### C BC #### [facility] [address] [place] [address] Dr. Bree Scott Lymphocytes/100 WBC (Bld) 31.8 % Normal 20.5-60.0 [facility] Comment on above: Performed By: #### C BC #### [facility] [address] [place] [address] Dr. Bree Scott MANUAL DIFF REQ NO Normal [facility] Comment on above: Performed By: #### C BC #### [facility] [address] [place] [address] Dr. Bree Scott MCH (RBC) [Entitic mass] 30.5 pg Normal 26.7-34.0 [facility] Comment on above: Performed By: #### C BC #### [facility] [address] [place] [address] Dr. Bree Scott MCHC (RBC) [Mass/Vol] 32.3 g/dL Normal 29.9-35.2 [facility] Comment on above: Performed By: #### C BC #### [facility] [address] [place] [address] Dr. Bree Scott MCV (RBC) [Entitic vol] 94.4 fL Normal 81.0-99.0 [facility] Comment on above: Performed By: #### C BC #### [facility] [address] [place] [address] Dr. Bree Scott MONO # 0.6 103/ul Normal 0.3-0.8 [facility] Comment on above: Performed By: #### C BC #### [facility] [address] [place] [address] Dr. Bree Scott Monocytes/100 WBC (Bld) 9.9 % Normal 1.7-12.0 [facility] Comment on above: Performed By: #### C BC #### [facility] [address] [address] [address] Bree Scott NEUT # 3.5 103/ul Normal 1.4-6.5 [facility] Comment on above: Performed By: #### C BC #### [facility] [address] [address] [address] Bree Scott Neutrophils/100 WBC (Bld) 54.9 % Normal 43.0-75.0 [facility] Comment on above: Performed By: #### C BC #### [facility] [address] [address] [address] Bree Scott Platelet mean volume (Bld) [Entitic vol] 9.2 fL Critically low 9.5-13.5 [facility] Comment on above: Performed By: #### C BC #### [facility] [address] [place] [address] Dr. Bree Scott PLT 243 103/ul Normal 150-450 [facility] Comment on above: Performed By: #### C BC #### [facility] [address] [place] [address] Dr. Bree Scott RBC 4.29 106/ul Normal 4.20-5.40 [facility] Comment on above: Performed By: #### C BC #### [facility] [address] [place] [address] Dr. Bree Scott WBC 6.4 103/ul Normal 4.0-11.0 [facility] Comment on above: Performed By: #### C BC #### [facility] [address] [place] [address] Dr. Bree Scott ECHOCARDIO M/2D COMPLETEon 0 04-24-2022 ECHOCARDIO M/2D COMPLETE Patient: THIAGO KRISHNAN Exam Date: 04/24/2022 : 1950 Gender:F Ordering : LISA EATON Admission #: [id number] Family : DR KALLIE CHASE M.D. Order #: [id number] CLICK HERE TO VIEW EXAM ECHOCARDIOGRAM REPORT PROCEDURE: CARDIO PULMONARY ECHOCARDIO M/2D COMP INDICATIONS: Mitral valve regurgitation, S/P MV RING; 28 mm Physio-ring 03/22/2021 COMPARISON: None. DESCRIPTION: COMPLETE ECHOCARDIOGRAM Real-time transthoracic echocardiography with 2D, M-mode, spectral and color flow Doppler performed. QUALITY: Technical quality was good. 65 110# 128/68 HR 64 LEFT VENTRICLE: Normal chamber size. Mild concentric left ventricular hypertrophy. LV EF: Global left ventricular systolic function is normal. Calculated left ventricular ejection fraction is 62%. The interventricular septum is abnormal in motion;not an unusual finding in post open-heart patients.. DIASTOLIC: Unable to assess diastolic function due to mitral valve ring. ATRIAL SEPTUM: Inadequately seen. LEFT ATRIUM: The left atrium appears mildly enlarged. RIGHT ATRIUM: Moderate dilatation. RIGHT VENTRICLE: Normal chamber size. Normal right ventricular systolic function. TRICUSPID VALVE: Normal mobility and thickness. No stenosis with mild regurgitation. No evidence of pulmonary hypertension. RVSP 22 mmHg. MITRAL VALVE: No evidence of mitral valve stenosis. Trivial mitral regurgitation. Myxomatous degeneration of the mitral valve. The mitral valve opens well. AORTIC VALVE: Normal trileaflet appearance. Mildly calcified aortic valve. No evidence of aortic valve stenosis. Mild aortic regurgitation. AORTIC ROOT: Normal diameter and appearance. Ascending aorta is normal in size. Unable to visualize aortic arch. PULMONIC VALVE: Normal thickness and mobility. No stenosis. Trivial regurgitation. PERICARDIUM: No evidence of pericardial effusion. IVC: Collapses with inspirations. IVC is normal in size. CONCLUSION: Global left ventricular systolic function is normal; visually estimated ejection fraction is 60 to 65%. Abnormal septal motion. The left atrium is mildly enlarged. The right atrium is enlarged. Right ventricle is normal in size and systolic function. Mild tricuspid regurgitation. Mitral valve ring is seen. No evidence of mitral valve stenosis. Mild aortic valve regurgitation. Adult Echocardiography Procedure Report Left Ventricle Left Atrium Mitral Valve Right Ventricle Aorta Aortic Valve Peak Velocity (Antegrade Flow): 1.19 m/s AoV Area (Peak Andrea): 2.33 cm2, 2.33 cm2 Peak Velocity(Antegrade Flow): 1.19 m/s Peak Gradient(Antegrade Flow): 5.68 mm[Hg] Tricuspid Valve Peak Velocity (Regurgitant Flow): 1.98 m/s, 2.16 m/s Peak Velocity: 0.56 m/s Pulmonic Valve PV Max Andrea (0.6 - 0.9 m per sec): 0.72 m/s PV Max Gradient: 2.08 mm[Hg] Right Atrium Dictated by: Balta Bernal M.D. on 04/24/2022 at 16:41 Approved by: Balta Bernal M.D. on 04/24/2022 at 16:45 Normal [facility] LIPID PROFILEon 04-24-2022 CHOL-HDL RATIO NORM SEE BELOW Normal [facility] Comment on above: Result Comment: 3.3 - 4.4 LOW RISK 4.4 - 7.1 AVERAGE RISK 7.1 - 11.0 MODERATE RISK >11.0 HIGH RISK Performed By: #### C MP, LIPID #### [facility] [address] [address] [address] Bree Scott Cholesterol [Mass/Vol] 136 mg/dL Normal <=200 [facility] Comment on above: Performed By: #### C MP, LIPID #### [facility] [address] [address] [address] Bree Scott Cholesterol in HDL [Mass/Vol] 64 mg/dL Critically high 40-60 [facility] Comment on above: Performed By: #### C MP, LIPID #### [facility] [address] [address] [address] rBee Scott Cholesterol in LDL [Mass/Vol] 63.8 mg/dL Normal [facility] Comment on above: Performed By: #### C MP, LIPID #### [facility] [address] [address] [address] Bree Scott Cholesterol.total/Heather sterol in HDL [Mass ratio] 2.1 {ratio} Normal [facility] Comment on above: Performed By: #### C MP, LIPID #### [facility] [address] [address] [address] Bree Scott HDL NORMAL > or = 60 mg/dl - LO W CARDIOVASCULAR RISK <40 mg/dl - HIGH CARDIOVASCULAR RISK Normal [facility] Comment on above: Performed By: #### C MP, LIPID #### [facility] [address] [address] [address] Bree Scott LDL CALC NORMAL SEE BELOW Normal [facility] Comment on above: Result Comment: <100 mg/dl OPTIMAL 100 - 129 mg/dl NEAR OR ABOVE OPTIMAL 130 - 159 mg/dl BORDERLINE HIGH 160 - 189 mg/dl HIGH >190 mg/dl VERY HIGH Performed By: #### C MP, LIPID #### [facility] [address] [place] [address] Dr. Bree Scott Triglyceride [Mass/Vol] 41 mg/dL Normal <=150 T [facility] Comment on above: Performed By: #### C MP, LIPID #### [facility] [address] [place] [address] Dr. Bree Scott VLDL CALC 8.2 mg/dL Normal [facility] Comment on above: Performed By: #### C MP, LIPID #### [facility] [address] [place] [address] Dr. Bree Scott PROF 14(COMP METB)on 022 Albumin [Mass/Vol] 3.4 g/dL Normal 3.4-5.0 [facility] Comment on above: Performed By: #### C MP, LIPID #### [facility] [address] [place] [address] Dr. Bree Scott Albumin/Globulin [Mass ratio] 1.2 {ratio} Normal [facility] Comment on above: Performed By: #### C MP, LIPID #### [facility] [address] [place] [address] Dr. Bree Scott ALP [Catalytic activity/Vol] 72 U/L Normal 46-116 [facility] Comment on above: Performed By: #### C MP, LIPID #### [facility] [address] [place] [address] Dr. Bree Scott ALT [Catalytic activity/Vol] 45 U/L Normal 14-59 [facility] Comment on above: Performed By: #### C MP, LIPID #### [facility] [address] [place] [address] Dr. Bere Scott Anion gap [Moles/Vol] 9.1 mmol/L Normal [facility] Comment on above: Performed By: #### C MP, LIPID #### [facility] [address] [place] [address] Dr. Bree Scott AST [Catalytic activity/Vol] 22 U/L Normal 15-37 [facility] Comment on above: Performed By: #### C MP, LIPID #### [facility] [address] [place] [address] Dr. Bree Scott Bilirubin [Mass/Vol] 0.6 mg/dL Normal 0.2-1.0 [facility] Comment on above: Performed By: #### C MP, LIPID #### [facility] [address] [place] [address] Dr. Bree Scott Calcium [Mass/Vol] 8.6 mg/dL Normal 8.5-10.1 [facility] Comment on above: Performed By: #### C MP, LIPID #### [facility] [address] [place] [address] Dr. Bree Scott Chloride [Moles/Vol] 106 mmol/L Normal 98-107 [facility] Comment on above: Performed By: #### C MP, LIPID #### [facility] [address] [place] [address] Dr. Bree Scott CO2 [Moles/Vol] 31.4 mmol/L Normal 21.0-32.0 [facility] Comment on above: Performed By: #### C MP, LIPID #### [facility] [address] [place] [address] Dr. Bree Scott Creatinine [Mass/Vol] 0.60 mg/dL Normal 0.55-1.02 [facility] Comment on above: Performed By: #### C MP, LIPID #### [facility] [address] [place] [address] Dr. Bree Scott EGFR-AF VIET[place]ESE >60 Normal >=60 [facility] Comment on above: Performed By: #### C MP, LIPID #### [facility] [address] [place] [address] Dr. Bree Scott EGFR-NON AF VIET[place]ESE >60 Normal >=60 [facility] Comment on above: Performed By: #### C MP, LIPID #### [facility] [address] [place] [address] Dr. Bree Scott Globulin (S) [Mass/Vol] 2.9 g/dL Normal T [facility] Comment on above: Performed By: #### C MP, LIPID #### [facility] [address] [place] [address] Dr. Bree Scott Glucose [Mass/Vol] 95 mg/dL Normal 74-106 [facility] Comment on above: Performed By: #### C MP, LIPID #### [facility] [address] [place] [address] Dr. Bree Scott Potassium [Moles/Vol] 4.5 mmol/L Normal 3.5-5.1 [facility] Comment on above: Performed By: #### C MP, LIPID #### [facility] [address] [place] [address] Dr. Bree Scott Protein [Mass/Vol] 6.3 g/dL Critically low 6.4-8.2 Th [facility] Comment on above: Performed By: #### C MP, LIPID #### [facility] [address] [place] [address] Dr. Bree Scott Sodium [Moles/Vol] 142 mmol/L Normal 136-145 [facility] Comment on above: Performed By: #### C MP, LIPID #### [facility] [address] [place] [address] Dr. Bree Scott Urea nitrogen [Mass/Vol] 28.0 mg/dL Critically high 7.0-18.0 [facility] Comment on above: Performed By: #### C MP, LIPID #### [facility] [address] [place] [address] Dr. Bree Scott Urea nitrogen/Creatinine [Mass ratio] 46.7 mg/mg Normal [facility] Comment on above: Performed By: #### C MP, LIPID #### [facility] [address] [place] [address] Dr. Bree Scott BASIC METABOLIC PANELon - Calcium [Mass/Vol] 8.9 mg/dL Normal 8.6-10.3 [facility] Comment on above: Order Comment: evalu ate Atelectasis Performed By: #### 0 [id number], [id number] ####[facility] [place] [address], [place] Chloride [Moles/Vol] 99 mmol/L Normal 98-107 [facility] Comment on above: Order Comment: evalu ate Atelectasis Performed By: #### 0 [id number], [id number] ####[facility] [place] [address], [place] CO2 [Moles/Vol] 30 mmol/L Normal 21-31 [facility] Comment on above: Order Comment: evalu ate Atelectasis Performed By: #### 0 [id number], [id number] ####[facility] [place] [address], [place] Creatinine [Mass/Vol] 0.51 mg/dL Low 0.60-1.20 [facility] Comment on above: Order Comment: evalu ate Atelectasis Performed By: #### 0 [id number], [id number] ####[facility] [place] [address], [place] GFR/1.73 sq M.predicted among blacks MDRD (S/P/Bld) [Vol rate/Area] mL/min/{1.73_m2} Normal >60 [facility] Comment on above: Order Comment: evalu ate Atelectasis Performed By: #### 0 [id number], [id number] ####[facility] [place] [address], [place] GFR/1.73 sq M.predicted among non-blacks MDRD (S/P/Bld) [Vol rate/Area] mL/min/{1.73_m2} Normal >60 [facility] Comment on above: Order Comment: evalu ate Atelectasis Performed By: #### 0 [id number], [id number] ####[facility] [place] [address], [place] Glucose [Mass/Vol] 82 mg/dL Normal 70-100 [facility] Comment on above: Order Comment: evalu ate Atelectasis Performed By: #### 0 [id number], [id number] ####[facility] [place] [address], [facility] Potassium [Moles/Vol] 4.0 mmol/L Normal 3.5-5.1 [facility] Comment on above: Order Comment: evalu ate Atelectasis Performed By: #### 0 [id number], [id number] ####[facility] [place] [address], [facility] Sodium [Moles/Vol] 135 mmol/L Low 136-145 [facility] Comment on above: Order Comment: evalu ate Atelectasis Performed By: #### 0 [id number], [id number] ####[facility] [place] [address], [facility] Urea nitrogen [Mass/Vol] 17 mg/dL Normal 7-25 [facility] Comment on above: Order Comment: evalu ate Atelectasis Performed By: #### 0 [id number], [id number] ####[facility] [place] [address], [facility] CBC COMPLETE BLOOD COUNTon 0 - Erythrocyte distribution width (RBC) [Ratio] 13.2 % Normal 11.5-15.0 [facility] Comment on above: Order Comment: No: D o not add to previous draw Performed By: #### 8 [id number] #### [facility] [address] [place] [address], [place] Hematocrit (Bld) [Volume fraction] 33.1 % Low 36.0-45.0 [facility] Comment on above: Order Comment: No: D o not add to previous draw Performed By: #### 8 [id number] #### [facility] [address] [place] [address], [place] Hemoglobin (Bld) [Mass/Vol] 10.4 g/dL Low 12.0-15.0 [facility] Comment on above: Order Comment: No: D o not add to previous draw Performed By: #### 8 [id number] #### [facility] [address] [place] [address], [facility] MCH (RBC) [Entitic mass] 30.1 pg Normal 27.0-33.0 [facility] Comment on above: Order Comment: No: D o not add to previous draw Performed By: #### 8 [id number] #### [facility] [address] [place] [address], [facility] MCHC (RBC) [Mass/Vol] 31.4 g/dL Low 32.0-35.0 [facility] Comment on above: Order Comment: No: D o not add to previous draw Performed By: #### 8 [id number] #### [facility] [address] [place] [address], [facility] MCV (RBC) [Entitic vol] 95.9 fL Normal 82.0-98.0 T [facility] Comment on above: Order Comment: No: D o not add to previous draw Performed By: #### 8 [id number] #### [facility] [address] [facility] [place] [address], [facility] Nucleated RBC/100 WBC (Bld) [Ratio] 0 % Normal 0-0 [facility] Comment on above: Order Comment: No: D o not add to previous draw Performed By: #### [id number] #### [facility] [address] [place] [address], [facility] PLAT CNT 303 10*3/uL Normal 150-400 [facility] Comment on above: Order Comment: No: D o not add to previous draw Performed By: #### [id number] #### [facility] [address] [place] [address], [facility] RBC (Bld) [#/Vol] 3.45 10*6/uL Low 3.80-5.00 The [facility] Comment on above: Order Comment: No: D o not add to previous draw Performed By: #### 8 [id number] #### [facility] [address] [place] [address], [facility] WBC (Bld) [#/Vol] 8.08 10*3/uL Normal 4.00-10.60 [facility] Comment on above: Order Comment: No: D o not add to previous draw Performed By: #### [id number] #### [facility] [address] [place] [address], [facility] MAGNESIUM BLOODon 03-27-2021 Magnesium [Mass/Vol] 1.9 mg/dL Normal 1.9-2.7 [facility] Comment on above: Order Comment: evalu ate Atelectasis Performed By: #### 0 [id number], [id number] ####[facility] [facility] [place] [address], [facility] POC GLUCOSE LABon 03-27-2021 Glucose [Mass/Vol] 87 mg/dL Normal 70-100 The [facility] Comment on above: Performed By: #### 3 [id number] #### [facility] [address] [facility] [place] [address], [facility] Glucose [Mass/Vol] 110 mg/dL High 70-100 [facility] Comment on above: Performed By: #### [id number] #### [facility] [address] [facility] [place] [address], [facility] Glucose [Mass/Vol] 114 mg/dL High 70-100 [facility] Comment on above: Performed By: #### [id number] #### [facility] [address] [facility] [place] [address], [facility] PORTABLE CHEST 1 VIEWon 03-07 PORTABLE CHEST 1 VIEW [facility] Department of Radiology [address] [place] [id number] Patient Name: THIAGO KRISHNAN : 1950 Sex: F Age: Race: White Pt. Location: [place] [address] Patient Status: I Ordered Date: 03/27/2021 5:00:00 AM Completed Date: 03/27/2021 07:07 AM Requesting Provider: ANGEL LOVE Attending Provider: CHELE SANCHEZ Report Copy To: Signs & Symptoms: Post OP History: Comments: evaluate Atelectasis Exam: PORTABLE CHEST 1 VIEW PORTABLE CHEST 1 VIEW 03/27/2021 7:07 AM CLINICAL INDICATIONS: Post OP TECHNOLOGIST COMMENTS: Follow up of pneumothorax dyspnea QUESTION FOR THE RADIOLOGIST: evaluate Atelectasis PROTOCOL: AP(PA) view was obtained. COMPARISON: March 26, 2021. FINDINGS: The right-sided jugular line has been removed. No convincing pneumothorax. Cardiomegaly with prosthetic valves. Opacity lung bases suggesting a combination of pleural fluid consolidation and atelectasis study. Upper lungs remain clear. IMPRESSION: Removal of right jugular line with no convincing pneumothorax. Changes in lung bases persist. Electronically signed: Vernell Varela. Transcribed by: [email or web address], User Resident: Electronically Signed by: VERNELL VARELA @ 03/27/2021 07:43 AM Normal [facility] Comment on above: Order Comment: evalu ate Atelectasis BASIC METABOLIC PANELon 06-2 Calcium [Mass/Vol] 8.3 mg/dL Low 8.6-10.3 [facility] Comment on above: Order Comment: evalu ate Atelectasis Performed By: #### 0 0071, [id number] ####[facility] [place] [address], [facility] Chloride [Moles/Vol] 102 mmol/L Normal 98-107 [facility] Comment on above: Order Comment: evalu ate Atelectasis Performed By: #### 0 0071, 77982 ####[facility] [place] [address], [place] CO2 [Moles/Vol] 31 mmol/L Normal 21-31 [facility] Comment on above: Order Comment: evalu ate Atelectasis Performed By: #### 0 0071, 57245 ####[facility] [place] [address], [facility] Creatinine [Mass/Vol] 0.50 mg/dL Low 0.60-1.20 [facility] Comment on above: Order Comment: evalu ate Atelectasis Performed By: #### 0 0071, 46053 ####[facility] [place] [address], [place] GFR/1.73 sq M.predicted among blacks MDRD (S/P/Bld) [Vol rate/Area] mL/min/{1.73_m2} Normal >60 [facility] Comment on above: Order Comment: evalu ate Atelectasis Performed By: #### 0 0071, 59403 ####[facility] [place] [address], [place] GFR/1.73 sq M.predicted among non-blacks MDRD (S/P/Bld) [Vol rate/Area] mL/min/{1.73_m2} Normal >60 [facility] Comment on above: Order Comment: evalu ate Atelectasis Performed By: #### 0 0071, 86818 ####[facility] [place] [address], [place] Glucose [Mass/Vol] 125 mg/dL High 70-100 [facility] Comment on above: Order Comment: evalu ate Atelectasis Performed By: #### 0 0071, 78334 ####[facility] [place] [address], [facility] Potassium [Moles/Vol] 4.1 mmol/L Normal 3.5-5.1 [facility] Comment on above: Order Comment: evalu ate Atelectasis Performed By: #### 0 0071, 06508 ####[facility] [place] [address], [facility] Sodium [Moles/Vol] 138 mmol/L Normal 136-145 [facility] Comment on above: Order Comment: evalu ate Atelectasis Performed By: #### 0 0071, 73273 ####[facility] [place] [address], [facility] Urea nitrogen [Mass/Vol] 18 mg/dL Normal 7-25 [facility] Comment on above: Order Comment: evalu ate Atelectasis Performed By: #### 0 0071, 99718 ####[facility] [place] [address], [facility] CBC COMPLETE BLOOD COUNTon 0 - Erythrocyte distribution width (RBC) [Ratio] 13.4 % Normal 11.5-15.0 [facility] Comment on above: Order Comment: No: D o not add to previous drawNurse draw Performed By: #### 8 5499 #### [facility] [address] [place] [address], [place] Hematocrit (Bld) [Volume fraction] 29.3 % Low 36.0-45.0 [facility] Comment on above: Order Comment: No: D o not add to previous drawNurse draw Performed By: #### 8 5499 #### [facility] [address] [place] [address], [place] Hemoglobin (Bld) [Mass/Vol] 9.2 g/dL Low 12.0-15.0 [facility] Comment on above: Order Comment: No: D o not add to previous drawNurse draw Performed By: #### 8 5499 #### [facility] [address] [place] [id number], [facility] MCH (RBC) [Entitic mass] 30.4 pg Normal 27.0-33.0 [facility] Comment on above: Order Comment: No: D o not add to previous drawNurse draw Performed By: #### 8 5499 #### [facility] [address] [place] [id number], [facility] MCHC (RBC) [Mass/Vol] 31.4 g/dL Low 32.0-35.0 [facility] Comment on above: Order Comment: No: D o not add to previous drawNurse draw Performed By: #### 8 5499 #### [facility] [address] [place] [address], [facility] MCV (RBC) [Entitic vol] 96.7 fL Normal 82.0-98.0 T [facility] Comment on above: Order Comment: No: D o not add to previous drawNurse draw Performed By: #### 8 5499 #### [facility] [address] [place] [id number], [facility] Nucleated RBC/100 WBC (Bld) [Ratio] 0 % Normal 0-0 [facility] Comment on above: Order Comment: No: D o not add to previous drawNurse draw Performed By: #### 8 5499 #### [facility] [address] [place] [id number], [place] PLAT CNT 223 10*3/uL Normal 150-400 [facility] Comment on above: Order Comment: No: D o not add to previous drawNurse draw Performed By: #### 8 5499 #### [facility] [address] [place] [address], [facility] RBC (Bld) [#/Vol] 3.03 10*6/uL Low 3.80-5.00 [facility] Comment on above: Order Comment: No: D o not add to previous drawNurse draw Performed By: #### 8 5499 #### [facility] [address] [place] [address], [place] WBC (Bld) [#/Vol] 7.67 10*3/uL Normal 4.00-10.60 [facility] Comment on above: Order Comment: No: D o not add to previous drawNurse draw Performed By: #### 8 5499 #### [facility] [address] [place] [address], [place] MAGNESIUM BLOODon 03-26-2021 Magnesium [Mass/Vol] 1.9 mg/dL Normal 1.9-2.7 [facility] Comment on above: Order Comment: evalu ate Atelectasis Performed By: #### 0 0071, 85117 ####[facility] [place] [address], [place] POC GLUCOSE LABon 03-26-2021 Glucose [Mass/Vol] 81 mg/dL Normal 70-100 [facility] Comment on above: Performed By: #### 3 1595 #### [facility] [address] [place] [address], [place] Glucose [Mass/Vol] 286 mg/dL High 70-100 [facility] Comment on above: Performed By: #### 8 5499 #### [facility] [address] [place] [address], [place] Glucose [Mass/Vol] 164 mg/dL High 70-100 [facility] Comment on above: Performed By: #### 5 0608 #### [facility] [address] [place] [address], [place] PORTABLE CHEST 1 VIEWon - PORTABLE CHEST [address] [facility] Department of Radiology [address] [place] [address] Patient Name: THIAGO KRISHNAN DOB: 1950 Sex: F Age: Race: White Pt. Location: [place] [address] Patient Status: I Ordered Date: 03/26/2021 5:00:00 AM Completed Date: 03/26/2021 06:30 AM Requesting Provider: ANGEL LOVE Attending Provider: CHELE SANCHEZ Report Copy To: Signs & Symptoms: Post OP History: Comments: evaluate Atelectasis Exam: PORTABLE CHEST 1 VIEW PORTABLE CHEST 1 VIEW 03/26/2021 6:30 AM CLINICAL INDICATIONS: Post OP TECHNOLOGIST COMMENTS: shortness of breath post op QUESTION FOR THE RADIOLOGIST: evaluate Atelectasis PROTOCOL: AP(PA) view was obtained. COMPARISON: March 25, 2021. FINDINGS: Right-sided jugular line remains, previously described right-sided pneumothorax continues to decrease in volume. Bibasilar and right midlung field atelectasis remain. Cardiomegaly with valvular prosthesis remains. IMPRESSION: Continued decrease in size of right pneumothorax. Persistent atelectasis in both lower lung douglas and right mid lung. Electronically signed: Vernell Varela. Transcribed by: [email or web address], User Resident: Electronically Signed by: VERNELL VARELA @ 03/26/2021 06:40 AM Normal [facility] Comment on above: Order Comment: The A ptima SARS-CoV-2 assay is a nucleic acid amplification test intended for the qualitative detection of RNA from SARS-CoV-2 isolated and purified from nasopharyngeal (LIGHTOUT EXAMINER),oropharyngeal (OP), nasal swab, sputum, and bronchoalveolar lavage (BAL) specimens from patients with signs and symptoms of infection who are suspected of COVID-19. Results are for the identification of SARS-CoV-2 RNA. The SARS-CoV-2 RNA is generally detectable during the acute phase of infection. The Aptima SARS-CoV-2 Assay on the esolidar and esolidar Fusion system is intended for use by laboratory personnel specifically instructed and trained in the operation of the Lima and esolidar Fusion system. The Aptima SARS-CoV-2 assay is only for use under the Food and Drug Administration Emergency Use Authorization. Testing is limited to laboratories certified under the Clinical Laboratory Improvement Amendments of 1988 (CLIA), 42 U.S.C. ???263a, to perform high complexity tests. Not Detected: Not detected does not preclude SARS-CoV-2 infection and should not be used as the sole basis for patient management decisions. Not detected results must be combined with clinical observations, patient history, and epidemiological information. BASIC METABOLIC PANELon 06- 0-2020 Calcium [Mass/Vol] 8.3 mg/dL Low 8.6-10.3 [facility] Comment on above: Order Comment: No: D o not add to previous draw Performed By: #### 3 0965 #### [facility] [address] [place] [address], [facility] Chloride [Moles/Vol] 99 mmol/L Normal 98-107 [facility] Comment on above: Order Comment: No: D o not add to previous draw Performed By: #### 3 0965 #### [facility] [address] [place] [address], [place] CO2 [Moles/Vol] 29 mmol/L Normal 21-31 [facility] Comment on above: Order Comment: No: D o not add to previous draw Performed By: #### 3 0938 #### [facility] [address] [place] [address], [place] Creatinine [Mass/Vol] 0.53 mg/dL Low 0.60-1.20 [facility] Comment on above: Order Comment: No: D o not add to previous draw Performed By: #### 3 0965 #### [facility] [address] [place] [address], [place] GFR/1.73 sq M.predicted among blacks MDRD (S/P/Bld) [Vol rate/Area] mL/min/{1.73_m2} Normal >60 [facility] Comment on above: Order Comment: No: D o not add to previous draw Performed By: #### 3 0965 #### [facility] [address] [place] [address], [place] GFR/1.73 sq M.predicted among non-blacks MDRD (S/P/Bld) [Vol rate/Area] mL/min/{1.73_m2} Normal >60 [facility] Comment on above: Order Comment: No: D o not add to previous draw Performed By: #### 3 0965 #### [facility] [address] [place] [address], [place] Glucose [Mass/Vol] 104 mg/dL High 70-100 [facility] Comment on above: Order Comment: No: D o not add to previous draw Performed By: #### 3 0965 #### [facility] [address] [place] [address], [place] Potassium [Moles/Vol] 4.1 mmol/L Normal 3.5-5.1 [facility] Comment on above: Order Comment: No: D o not add to previous draw Performed By: #### 3 0965 #### [facility] [address] [place] [address], [place] Sodium [Moles/Vol] 134 mmol/L Low 136-145 [facility] Comment on above: Order Comment: No: D o not add to previous draw Performed By: #### 3 0965 #### [facility] [address] [place] [address], [facility] Urea nitrogen [Mass/Vol] 21 mg/dL Normal 7-25 [facility] Comment on above: Order Comment: No: D o not add to previous draw Performed By: #### 3 0965 #### [facility] [address] [place] [id number], [facility] CBC COMPLETE BLOOD COUNTon 0 03-25-2021 Erythrocyte distribution width (RBC) [Ratio] 13.4 % Normal 11.5-15.0 [facility] Comment on above: Order Comment: No: D o not add to previous draw Performed By: #### 8 5499 #### [facility] [address] [place] [address], [facility] Hematocrit (Bld) [Volume fraction] 28.4 % Low 36.0-45.0 [facility] Comment on above: Order Comment: No: D o not add to previous draw Performed By: #### 8 5499 #### [facility] [address] [place] [address], [facility] Hemoglobin (Bld) [Mass/Vol] 9.4 g/dL Low 12.0-15.0 [facility] Comment on above: Order Comment: No: D o not add to previous draw Performed By: #### 8 5499 #### [facility] [address] [place] [address], [facility] MCH (RBC) [Entitic mass] 31.0 pg Normal 27.0-33.0 [facility] Comment on above: Order Comment: No: D o not add to previous draw Performed By: #### 8 5499 #### [facility] [address] [place] [address], [facility] MCHC (RBC) [Mass/Vol] 33.1 g/dL Normal 32.0-35.0 [facility] Comment on above: Order Comment: No: D o not add to previous draw Performed By: #### 8 5499 #### [facility] [address] [place] [address], [facility] MCV (RBC) [Entitic vol] 93.7 fL Normal 82.0-98.0 [facility] Comment on above: Order Comment: No: D o not add to previous draw Performed By: #### 8 5499 #### [facility] [address] [place] [address], [facility] Nucleated RBC/100 WBC (Bld) [Ratio] 0 % Normal 0-0 [facility] Comment on above: Order Comment: No: D o not add to previous draw Performed By: #### 8 5499 #### [facility] [address] [place] [address], [facility] PLAT CNT 191 10*3/uL Normal 150-400 [facility] Comment on above: Order Comment: No: D o not add to previous draw Performed By: #### 8 5499 #### [facility] [address] [place] [address], [facility] RBC (Bld) [#/Vol] 3.03 10*6/uL Low 3.80-5.00 [facility] Comment on above: Order Comment: No: D o not add to previous draw Performed By: #### 8 5499 #### [facility] [address] [place] [address], [facility] WBC (Bld) [#/Vol] 9.57 10*3/uL Normal 4.00-10.60 [facility] Comment on above: Order Comment: No: D o not add to previous draw Performed By: #### 8 5499 #### [facility] [address] [place] [address], [facility] MAGNESIUM BLOODon 03-25-2021 Magnesium [Mass/Vol] 2.2 mg/dL Normal 1.9-2.7 [facility] Comment on above: Order Comment: No: D o not add to previous draw Performed By: #### 3 0965 #### [facility] [address] [facility] [place] [address], [facility] PHOSPHORUS BLOODon Phosphate [Mass/Vol] 2.6 mg/dL Normal 2.5-5.0 [facility] Comment on above: Order Comment: No: D o not add to previous draw Performed By: #### 3 0965 #### [facility] [address] [facility] [place] [address], [facility] POC GLUCOSE LABon 03-25-2021 Glucose [Mass/Vol] 129 mg/dL High 70-100 [facility] Comment on above: Performed By: #### 8 5499 #### [facility] [address] [facility] [place] [address], [facility] Glucose [Mass/Vol] 129 mg/dL High 70-100 [facility] Comment on above: Performed By: #### 5 0608 #### [facility] [address] [place] [address], [facility] PORTABLE CHEST 1 VIEWon 03-07 PORTABLE CHEST [address] [facility] Department of Radiology [address] [place] [id number] Patient Name: THIAGO KRISHNAN : 1950 Sex: F Age: Race: White Pt. Location: [place] [address] Patient Status: I Ordered Date: 03/25/2021 5:00:00 AM Completed Date: 03/25/2021 08:00 AM Requesting Provider: ANGEL LOVE Attending Provider: CHELE SANCHEZ Report Copy To: Signs & Symptoms: Post OP History: Comments: evaluate for Pneumothorax Exam: PORTABLE CHEST 1 VIEW PORTABLE CHEST 1 VIEW 03/25/2021 8:00 AM CLINICAL INDICATIONS: Post OP TECHNOLOGIST COMMENTS: evaluate for Pneumothorax QUESTION FOR THE RADIOLOGIST: evaluate for Pneumothorax PROTOCOL: AP(PA) view was obtained. COMPARISON: March 24 FINDINGS: The heart looks mildly enlarged. Pericardial effusion not excluded Heart valve marker noted Congestive changes with decreased with mild residual basilar atelectasis and airspace disease and effusion Bandlike density in the right infrahilar region presumably atelectasis and/or scarring A right central line remains in place There is some residual gaseous distention of the splenic flexure The right apical pneumothorax slightly decreased No left apical pneumothorax or cavitary process IMPRESSION: Suggestion of slight decrease in the small right apical pneumothorax Interval decrease in the congestive changes with mild residual basilar atelectasis, edema or other airspace disease and small effusions Cardiomegaly and/or pericardial effusion Electronically signed: Zina Brenner. Transcribed by: [email or web address], User Resident: Electronically Signed by: ZINA BRENNER @ 03/25/2021 08:07 AM Normal [facility] Comment on above: Order Comment: evalu ate for Pneumothorax TSH3 WITH REFLEX FT4on 03-25 TSH 3RD GENERATION 1.06 uIU/mL Normal 0.34-5.60 [facility] Comment on above: Order Comment: No: D o not add to previous draw Performed By: #### 3 2949 #### [facility] [address] [place] [address], [facility] BASIC METABOLIC PANELon 03-06 Calcium [Mass/Vol] 8.5 mg/dL Low 8.6-10.3 [facility] Comment on above: Order Comment: evalu ate Atelectasis Performed By: #### 1 0070, 83678 ####[facility] [facility] [place] [address], [facility] Chloride [Moles/Vol] 100 mmol/L Normal 98-107 [facility] Comment on above: Order Comment: evalu ate Atelectasis Performed By: #### 1 69, 50851 ####[facility] [place] [address], [place] CO2 [Moles/Vol] 27 mmol/L Normal 21-31 [facility] Comment on above: Order Comment: evalu ate Atelectasis Performed By: #### 1 69, 13849 ####[facility] [facility] [place] [address], [facility] Creatinine [Mass/Vol] 0.70 mg/dL Normal 0.60-1.20 [facility] Comment on above: Order Comment: evalu ate Atelectasis Performed By: #### 1 69, 70025 ####[facility] [facility] [id number], [place] GFR/1.73 sq M.predicted among blacks MDRD (S/P/Bld) [Vol rate/Area] mL/min/{1.73_m2} Normal >60 [facility] Comment on above: Order Comment: evalu ate Atelectasis Performed By: #### 1 69, 60925 ####[facility] [facility] [place] [address], [facility] GFR/1.73 sq M.predicted among non-blacks MDRD (S/P/Bld) [Vol rate/Area] mL/min/{1.73_m2} Normal >60 [facility] Comment on above: Order Comment: evalu ate Atelectasis Performed By: #### 1 69, 28800 ####[facility] [place] [address], [place] Glucose [Mass/Vol] 122 mg/dL High 70-100 [facility] Comment on above: Order Comment: evalu ate Atelectasis Performed By: #### 1 69, 74032 ####[facility] [place] [address], [facility] Potassium [Moles/Vol] 4.7 mmol/L Normal 3.5-5.1 [facility] Comment on above: Order Comment: evalu ate Atelectasis Performed By: #### 1 69, 55490 ####[facility] [place] [address], [place] Sodium [Moles/Vol] 133 mmol/L Low 136-145 [facility] Comment on above: Order Comment: evalu ate Atelectasis Performed By: #### 1 69, 75902 ####[facility] [place] [address], [facility] Urea nitrogen [Mass/Vol] 30 mg/dL High 7-25 [facility] Comment on above: Order Comment: evalu ate Atelectasis Performed By: #### 1 69, 81433 ####[facility] [place] [address], [facility] CBC COMPLETE BLOOD COUNTon 0 03-24-2021 Erythrocyte distribution width (RBC) [Ratio] 13.5 % Normal 11.5-15.0 [facility] Comment on above: Order Comment: No: D o not add to previous draw Nurse draw Performed By: #### 5 0608 #### [facility] [address] [place] [address], [facility] Hematocrit (Bld) [Volume fraction] 30.7 % Low 36.0-45.0 [facility] Comment on above: Order Comment: No: D o not add to previous draw Nurse draw Performed By: #### 5 0608 #### [facility] [address] [place] [address], [facility] Hemoglobin (Bld) [Mass/Vol] 10.0 g/dL Low 12.0-15.0 [facility] Comment on above: Order Comment: No: D o not add to previous draw Nurse draw Performed By: #### 5 0608 #### [facility] [address] MCH (RBC) [Entitic mass] 30.7 pg Normal 27.0-33.0 [facility] Comment on above: Order Comment: No: D o not add to previous draw Nurse draw Performed By: #### 5 0608 #### [facility] [address] MCHC (RBC) [Mass/Vol] 32.6 g/dL Normal 32.0-35.0 [facility] Comment on above: Order Comment: No: D o not add to previous draw Nurse draw Performed By: #### 5 0608 #### [facility] [address] [place] [address], [facility] MCV (RBC) [Entitic vol] 94.2 fL Normal 82.0-98.0 T [facility] Comment on above: Order Comment: No: D o not add to previous draw Nurse draw Performed By: #### 5 0608 #### [facility] [address] [facility]. [address] Nucleated RBC/100 WBC (Bld) [Ratio] 0 % Normal 0-0 [facility] Comment on above: Order Comment: No: D o not add to previous draw Nurse draw Performed By: #### 5 0608 #### [facility] [address] [facility] [place] [address], [facility] PLAT CNT 214 10*3/uL Normal 150-400 [facility] Comment on above: Order Comment: No: D o not add to previous draw Nurse draw Performed By: #### 5 0608 #### [facility] [address] [place] [address], [facility] RBC (Bld) [#/Vol] 3.26 10*6/uL Low 3.80-5.00 [facility] Comment on above: Order Comment: No: D o not add to previous draw Nurse draw Performed By: #### 5 0608 #### [facility] [address] [place] [address], [place] WBC (Bld) [#/Vol] 14.84 10*3/uL High 4.00-10.60 [facility] Comment on above: Order Comment: No: D o not add to previous draw Nurse draw Performed By: #### 5 0608 #### [facility] [address] [place] [address], [place] MAGNESIUM BLOODon 03-24-2021 Magnesium [Mass/Vol] 2.4 mg/dL Normal 1.9-2.7 [facility] Comment on above: Order Comment: evalu ate Atelectasis Performed By: #### 1 0070, 18334 ####[facility] [place] [address], [place] POC GLUCOSE LABon 03-24-2021 Glucose [Mass/Vol] 168 mg/dL High 70-100 [facility] Comment on above: Performed By: #### 3 1595 #### [facility] [address] [place] [address], [place] Glucose [Mass/Vol] 119 mg/dL High 70-100 [facility] Comment on above: Performed By: #### 3 1595 #### [facility] [address] [place] [address], [place] Glucose [Mass/Vol] 132 mg/dL High 70-100 [facility] Comment on above: Performed By: #### 3 1595 #### [facility] [address] [place] [address], [place] Glucose [Mass/Vol] 104 mg/dL High 70-100 [facility] Comment on above: Performed By: #### 8 [id number] #### [facility] [address] [place] [address], [facility] PORTABLE CHEST 1 VIEWon 03-06 PORTABLE CHEST [address] [facility] Department of Radiology [address] [place] [address] Patient Name: THIAGO RKISHNAN : 1950 Sex: F Age: Race: White Pt. Location: [place] [address] Patient Status: I Ordered Date: 03/24/2021 6:30:00 PM Completed Date: 03/24/2021 06:41 PM Requesting Provider: ANGEL LOVE Attending Provider: CHELE SANCHEZ Report Copy To: Signs & Symptoms: Post Chest Tube Removal History: Comments: Evaluate for Pneumothorax Exam: PORTABLE CHEST 1 VIEW PORTABLE CHEST 1 VIEW 03/24/2021 6:41 PM CLINICAL INDICATIONS: Post Chest Tube Removal TECHNOLOGIST COMMENTS: S/p chest tube removal QUESTION FOR THE RADIOLOGIST: Evaluate for Pneumothorax PROTOCOL: AP(PA) view was obtained. COMPARISON: March 24 earlier the same day FINDINGS: Current study is 1829 Heart valve marker again seen Right central line in place Right chest tube removed Overlying materials again seen Mild gaseous distention of the left hemicolon splenic flexure region Mild cardiomediastinal prominence looks slightly increased and there is slight increase in congestion and edema Some basilar opacities may be atelectasis or other airspace process Probable small effusions Small right apical pneumothorax measures about 16 mm pleural separation IMPRESSION: Right chest tube removed with small right apical pneumothorax measuring around 16 mm pleural separation. This was called to the nursing station at the time of this dictation There is slight increase in congestion, edema, basilar atelectasis or mild airspace disease and small effusions left greater than right Follow-up suggested to show clearing when appropriate Electronically signed: Zina Brenner. Transcribed by: [email or web address], User Resident: Electronically Signed by: ZINA BRENNER @ 03/25/2021 07:16 AM Normal [facility] Comment on above: Order Comment: Evalu ate for Pneumothorax PORTABLE CHEST [address] [facility] Department of Radiology [address] [place] [id number] Patient Name: THIAGO KRISHNAN : 1950 Sex: F Age: Race: White Pt. Location: [place] [address] Patient Status: I Ordered Date: 03/24/2021 5:00:00 AM Completed Date: 03/24/2021 08:00 AM Requesting Provider: ANGEL LOVE Attending Provider: CHELE SANCHEZ Report Copy To: Signs & Symptoms: Post OP History: See Comments Comments: R/O Atelectasis Exam: PORTABLE CHEST 1 VIEW PORTABLE CHEST 1 VIEW 03/24/2021 8:00 AM CLINICAL INDICATIONS: Post OP TECHNOLOGIST COMMENTS: sob QUESTION FOR THE RADIOLOGIST: R/O Atelectasis PROTOCOL: AP(PA) view was obtained. COMPARISON: March 23, 2021 FINDINGS: Cardiac and mediastinal contours are stable. There is no focal infiltrate. Suspect small effusions. Right lower lobe discoid atelectasis noted. No significant consolidation. Central line tip in the region of the SVC. IMPRESSION: Small effusions and the right lower lobe discoid atelectasis. Electronically signed: Roque May. Transcribed by: [email or web address], User Resident: Electronically Signed by: ROQUE Hagen GARCÍA @ 03/24/2021 08:02 AM Normal [facility] Comment on above: Order Comment: The A ptima SARS-CoV-2 assay is a nucleic acid amplification test intended for the qualitative detection of RNA from SARS-CoV-2 isolated and purified from nasopharyngeal (LIGHTOUT EXAMINER),oropharyngeal (OP), nasal swab, sputum, and bronchoalveolar lavage (BAL) specimens from patients with signs and symptoms of infection who are suspected of COVID-19. Results are for the identification of SARS-CoV-2 RNA. The SARS-CoV-2 RNA is generally detectable during the acute phase of infection. The Aptima SARS-CoV-2 Assay on the esolidar and esolidar Fusion system is intended for use by laboratory personnel specifically instructed and trained in the operation of the Lima and Lima Fusion system. The Aptima SARS-CoV-2 assay is only for use under the Food and Drug Administration Emergency Use Authorization. Testing is limited to laboratories certified under the Clinical Laboratory Improvement Amendments of 1988 (CLIA), 42 U.S.C. ???263a, to perform high complexity tests. Not Detected: Not detected does not preclude SARS-CoV-2 infection and should not be used as the sole basis for patient management decisions. Not detected results must be combined with clinical observations, patient history, and epidemiological information. APTTon 03-23-2021 aPTT Coag (Bld) [Time] 33.6 s Normal 25.0-35.0 [facility] Comment on above: Order Comment: post op day 1No: Do not add to previous draw Result Comment: ALL RESULTS MUST BE INTERPRETED WITH RESPECT TO BLOOD DRAWING ARTIFACT OR DILUTION ERROR OF ANTICOAGULANT AT THE TIME OF SAMPLING. THE APTT SHOULD NOT BE USED TO MONITOR UNFRACTIONATED HEPARIN THERAPY, THIS LABORATORY NO LONGER HAS AN ESTABLISHED THERAPEUTIC RANGE BASED ON THE APTT. IT IS RECOMMENDED THAT THE UFH - HEPARIN ASSAY (ANTI-XA ACTIVITY) BE USED FOR THIS PURPOSE. Performed By: #### 8 [id number] #### [facility] [address] [place] [address], [place] BASIC METABOLIC PANELon 06- Calcium [Mass/Vol] 8.3 mg/dL Low 8.6-10.3 [facility] Comment on above: Order Comment: post op day 1No: Do not add to previous draw Performed By: #### 3 0965 #### [facility] [address] [place] [address], [place] Chloride [Moles/Vol] 106 mmol/L Normal 98-107 [facility] Comment on above: Order Comment: post op day 1No: Do not add to previous draw Performed By: #### 3 0965 #### [facility] [address] [place] [address], [place] CO2 [Moles/Vol] 26 mmol/L Normal 21-[address] [facility] Comment on above: Order Comment: post op day 1No: Do not add to previous draw Performed By: #### 3 0965 #### [facility] [address] [place] [address], [place] Creatinine [Mass/Vol] 0.45 mg/dL Low 0.60-1.20 [facility] Comment on above: Order Comment: post op day 1No: Do not add to previous draw Performed By: #### 3 0965 #### [facility] [address] [place] [address], [place] GFR/1.73 sq M.predicted among blacks MDRD (S/P/Bld) [Vol rate/Area] mL/min/{1.73_m2} Normal >60 [facility] Comment on above: Order Comment: post op day 1No: Do not add to previous draw Performed By: #### 3 0965 #### [facility] [address] [place] [address], [place] GFR/1.73 sq M.predicted among non-blacks MDRD (S/P/Bld) [Vol rate/Area] mL/min/{1.73_m2} Normal >60 [facility] Comment on above: Order Comment: post op day 1No: Do not add to previous draw Performed By: #### 3 0965 #### [facility] [address] [place] [address], [place] Glucose [Mass/Vol] 122 mg/dL High 70-100 [facility] Comment on above: Order Comment: post op day 1No: Do not add to previous draw Performed By: #### 3 0965 #### [facility] [address] [place] [address], [place] Potassium [Moles/Vol] 4.2 mmol/L Normal 3.5-5.1 [facility] Comment on above: Order Comment: post op day 1No: Do not add to previous draw Performed By: #### 3 0965 #### [facility] [address] [place] [address], [place] Sodium [Moles/Vol] 140 mmol/L Normal 136-145 [facility] Comment on above: Order Comment: post op day 1No: Do not add to previous draw Performed By: #### 3 0965 #### [facility] [address] [place] [address], [place] Urea nitrogen [Mass/Vol] 25 mg/dL Normal 7-25 [facility] Comment on above: Order Comment: post op day 1No: Do not add to previous draw Performed By: #### 3 0965 #### [facility] [address] [place] [address], [place] CBC COMPLETE BLOOD COUNTon 0 - Erythrocyte distribution width (RBC) [Ratio] 13.4 % Normal 11.5-15.0 [facility] Comment on above: Order Comment: post op day 1No: Do not add to previous draw Performed By: #### 8 [id number] #### [facility] [address] [place] [address], [place] Hematocrit (Bld) [Volume fraction] 31.2 % Low 36.0-45.0 [facility] Comment on above: Order Comment: post op day 1No: Do not add to previous draw Performed By: #### 8 [id number] #### [facility] [address] [place] [address], [facility] Hemoglobin (Bld) [Mass/Vol] 10.2 g/dL Low 12.0-15.0 [facility] Comment on above: Order Comment: post op day 1No: Do not add to previous draw Performed By: #### 8 [id number] #### [facility] [address] [place] [address], [facility] MCH (RBC) [Entitic mass] 31.2 pg Normal 27.0-33.0 [facility] Comment on above: Order Comment: post op day 1No: Do not add to previous draw Performed By: #### 8 [id number] #### [facility] [address] [place] [address], [facility] MCHC (RBC) [Mass/Vol] 32.7 g/dL Normal 32.0-35.0 [facility] Comment on above: Order Comment: post op day 1No: Do not add to previous draw Performed By: #### 8 [id number] #### [facility] [address] [place] [address], [facility] MCV (RBC) [Entitic vol] 95.4 fL Normal 82.0-98.0 [facility] Comment on above: Order Comment: post op day 1No: Do not add to previous draw Performed By: #### 8 [id number] #### [facility] [address] [place] [address], [place] Nucleated RBC/100 WBC (Bld) [Ratio] 0 % Normal 0-0 [facility] Comment on above: Order Comment: post op day 1No: Do not add to previous draw Performed By: #### 8 [id number] #### [facility] [address] [place] [address], [facility] PLAT CNT 168 10*3/uL Normal 150-400 [facility] Comment on above: Order Comment: post op day 1No: Do not add to previous draw Performed By: #### 8 [id number] #### [facility] [address] [place] [id number], [facility] RBC (Bld) [#/Vol] 3.27 10*6/uL Low 3.80-5.00 [facility] Comment on above: Order Comment: post op day 1No: Do not add to previous draw Performed By: #### 8 [id number] #### [facility] [address] [place] [address], [facility] WBC (Bld) [#/Vol] 13.20 10*3/uL High 4.00-10.60 [facility] Comment on above: Order Comment: post op day 1No: Do not add to previous draw Performed By: #### 8 [id number] #### [facility] [address] [place] [id number], [facility] LACTATE BLOODon 03-23-2021 Lactate [Moles/Vol] 1.0 mmol/L Normal 0.5-2.2 [facility] Comment on above: Order Comment: post op day 1No: Do not add to previous draw Performed By: #### 3 0965 #### [facility] [address] [place] [id number], [facility] MAGNESIUM BLOODon 03-23-2021 Magnesium [Mass/Vol] 2.1 mg/dL Normal 1.9-2.7 [facility] Comment on above: Order Comment: post op day 1No: Do not add to previous draw Performed By: #### 3 0965 #### [facility] [address] [place] [address], [facility] Operative Reporton 1 Operative Report MR#: [id number] I [facility] Pt. Name: Thiago Krishnan #: JESSICA [id number] Discharge Date: Birthdate: 1950 OPERATIVE REPORT DATE OF SURGERY: 03/22/2021 SURGEON: Chele Sanchez MD PREOPERATIVE DIAGNOSES: Severe mitral regurgitation, flail mitral valve posterior leaflet. POSTOPERATIVE DIAGNOSES: Severe mitral regurgitation, flail mitral valve posterior leaflet. OPERATIONS: 1. Minimally invasive video-assisted mitral valve repair with triangular resection of posterior scallop P2, #28 Physio ring annuloplasty. 2. Independent interpretation of transesophageal echocardiogram. MOVIE WRITER: Juaquin. ANESTHESIA: General with endotracheal intubation. ANESTHESIOLOGIST: Dr. Yost. Cardiopulmonary bypass time 63 minutes. Cross-clamp time 37 minutes. INDICATIONS: This is a 70-year-old female with worsening severe mitral regurgitation with flail posterior leaflet. She was recommended mitral valve repair. PROCEDURE IN DETAIL: The patient was brought to the operating room and prepped and draped in the routine fashion. Incision was made in the right groin where the femoral artery and vein were dissected out through a 1 inch incision. The patient was heparinized and femoral artery and vein were cannulated in the usual fashion with DARSHAN guidance. The tip of the venous cannula was in the SVC. After heparinization, cardiopulmonary bypass was initiated, and chest was entered through the 4th intercostal space lateral to the breast. CO2 insufflation was begun through the chest wall. The pericardium was opened 2 cm in front of the phrenic nerve. Antegrade cardioplegic catheter was placed in the ascending aorta. Transthoracic Vipin clamp was applied. Cold blood antegrade modified [place] blood cardioplegia was given for a total of 1750 mL. 5 mm camera port was placed through the 3rd intercostal space. The left atrium was entered through the interatrial groove, mitral valve was examined. Indeed, the P2 scallop was very tall and flail. The anterior leaflet was also rather tall. A triangular resection was performed of the P2 scallop and then the leaflet edges were approximated with 4-0 Prolene running stitch. The valve was tested, found to be quite competent at this time. Slight downsizing was performed to a 28 mm Physio ring, which was implanted with the help of 2 Ethibond non-pledgeted stitches. The ring seated quite well and mitral valve was examined with the coaptation segments measuring about 8 mm on the anterior leaflet and about 4 or 5 mm on the posterior leaflet. The left atrium was closed with 3-0 Prolene pledgeted stitches and the patient was placed in a Trendelenburg position. LV vent was left across the mitral valve and cross-clamp was released. Aortic root vent was turned on and LV vent was turned on. Heart was manually de-aired for little bit and then the sutures were pulled up tight. Ventricular and atrial pacing wires were placed. The patient was temporarily paced at 70 beats per minute and regained sinus rhythm. Ventilation was begun. After adequate de-airing had been done, the LV vent was removed. The atriotomy was closed. At this time, valve was tested and found to have no paravalvular leak. There was trace aortic insufficiency before surgery that stayed there after surgery. Aortic root vent was removed and the patient was weaned off cardiopulmonary bypass. Protamine was given. Venous cannula was removed. After completion of protamine administration, aortic cannula was also removed. There was excellent pulse in the common femoral artery beyond the cannulation site. Two Jed drains were placed, 1 in the pericardium and another in the pleural cavity. Chest was closed with #2 pericostal, # 1 Vicryl, 2-0 Vicryl, 4-0 Monocryl stitches. The leg wound was also closed in layers using 2-0 Vicryl and 4-0 Monocryl stitches. The patient was extubated in the OR, taken to the ICU in a stable, but critical condition. Electronically Signed by: Chele Sanchez MD 03/26/2021 08:26 A Chele Sanchez MD Date Dict: 03/22/2021/01:23 P/Chele Sanchez MD Date Trans: 03/23/2021 12:26 A/nader [id number] Normal [facility] POC GLUCOSE LABon 03-23-2021 Glucose [Mass/Vol] 125 mg/dL High 70-100 [facility] Comment on above: Performed By: #### 5 0608 #### [facility] [address] [place] [address], [place] Glucose [Mass/Vol] 147 mg/dL High 70-100 [facility] Comment on above: Performed By: #### 8 [id number] #### [facility] [address] [place] [address], [place] Glucose [Mass/Vol] 128 mg/dL High 70-100 [facility] Comment on above: Performed By: #### 8 [id number] #### [facility] [address] [place] [address], [place] Glucose [Mass/Vol] 102 mg/dL High 70-100 [facility] Comment on above: Performed By: #### 8 [id number] #### [facility] [address] [place] [address], [place] Glucose [Mass/Vol] 115 mg/dL High 70-100 [facility] Comment on above: Performed By: #### 3 1595 #### [facility] [address] [place] [address], [place] Glucose [Mass/Vol] 91 mg/dL Normal 70-100 [facility] Comment on above: Performed By: #### 3 1595 #### [facility] [address] [place] [address], [place] Glucose [Mass/Vol] 113 mg/dL High 70-100 [facility] Comment on above: Performed By: #### 3 1595 #### [facility] [address] [place] [address], [place] PORTABLE CHEST 1 VIEWon 03-06 PORTABLE CHEST [address] [facility] Department of Radiology [address] [place] [id number] Patient Name: THIAGO KRISHNAN DOB: 1950 Sex: F Age: Race: White Pt. Location: [place] [address] Patient Status: I Ordered Date: 03/23/2021 7:00:00 AM Completed Date: 03/23/2021 07:55 AM Requesting Provider: CHELE SANCHEZ Attending Provider: CHELE SANCHEZ Report Copy To: Signs & Symptoms: Post CABG History: See Comments Comments: Check Chest Tube Position Exam: PORTABLE CHEST 1 VIEW PORTABLE CHEST 1 VIEW 03/23/2021 7:55 AM CLINICAL INDICATIONS: Post CABG TECHNOLOGIST COMMENTS: Post CABG QUESTION FOR THE RADIOLOGIST: Check Chest Tube Position PROTOCOL: AP(PA) view was obtained. COMPARISON: March 22, 2021. FINDINGS: Bilateral chest tubes, cardiomegaly, right-sided jugular line and prosthetic valvular ring remain. Consolidation and possible effusion in the left base remain. Mild prominence of perihilar pulmonary vascularity appears similar. No pneumothorax. IMPRESSION: No interval change with consolidation and possible effusion in left base. Electronically signed: Vernell Varela. Transcribed by: [email or web address], User Resident: Electronically Signed by: VERNELL VARELA @ 03/23/2021 08:22 AM Normal [facility] Comment on above: Order Comment: The A ptima SARS-CoV-2 assay is a nucleic acid amplification test intended for the qualitative detection of RNA from SARS-CoV-2 isolated and purified from nasopharyngeal (LIGHTOUT EXAMINER),oropharyngeal (OP), nasal swab, sputum, and bronchoalveolar lavage (BAL) specimens from patients with signs and symptoms of infection who are suspected of COVID-19. Results are for the identification of SARS-CoV-2 RNA. The SARS-CoV-2 RNA is generally detectable during the acute phase of infection. The Aptima SARS-CoV-2 Assay on the Lima and Lima Fusion system is intended for use by laboratory personnel specifically instructed and trained in the operation of the Lima and Lima Fusion system. The Aptima SARS-CoV-2 assay is only for use under the Food and Drug Administration Emergency Use Authorization. Testing is limited to laboratories certified under the Clinical Laboratory Improvement Amendments of 1988 (CLIA), 42 U.S.C. ???263a, to perform high complexity tests. Not Detected: Not detected does not preclude SARS-CoV-2 infection and should not be used as the sole basis for patient management decisions. Not detected results must be combined with clinical observations, patient history, and epidemiological information. PROTHROMBIN TIMEon 1 INR Coag (PPP) [Relative time] 1.19 {INR} High 0.91-1.16 [facility] Comment on above: Order Comment: post op day 1No: Do not add to previous draw Result Comment: ACCC P RECOMMENDED INR FOR WARFARIN THERAPY ------- CONDITION INR PROPHYLAXIS OF VENOUS THROMBOSIS 2-3 (HIGH-RISK SURGERY) TREATMENT OF VENOUS THROMBOSIS 2-3 TREATMENT OF PULMONARY EMBOLISM 2-3 PREVENTION OF SYSTEMIC EMBOLISM: 2-3 ACUTE MYOCARDIAL INFARCTION TISSUE HEART VALVES VALVULAR HEART DISEASE ATRIAL FIBRILLATION RECURRENT SYSTEMIC EMBOLISM MECHANICAL HEART VALVE 2.5-3.5 FROM: ORAL ANTICOAGULANTS. MECHANISM OF ACTION, CLINICAL EFFECTIVENESS, AND OPTIMAL THERAPEUTIC RANGE. CHEST 1995;108:231S-246S. Performed By: #### 8 5499 #### [place] [address] PT Coag (PPP) [Time] 15.2 s High 12.3-14.8 [facility] Comment on above: Order Comment: post op day 1No: Do not add to previous draw Result Comment: ALL RESULTS MUST BE INTERPRETED WITH RESPECT TO BLOOD DRAWING ARTIFACT OR DILUTION ERROR OF ANTICOAGULANT AT THE TIME OF SAMPLING. Performed By: #### 8 [id number] #### [facility] [address] [place] [address], [facility] *MRSA/MSSA DNA NASALon 03-22 *MRSA/MSSA DNA NASAL Clinical Report: (D ) Specimen: NASAL SWAB Collected: 03/22/2021 08:00 Status: Final Last Updated: 03/23/2021 17:18 MSSA DNA (Final) Negative MRSA DNA (Final) Negative Normal [facility] Comment on above: Performed By: #### 8 [id number] #### [facility] [address] [place] [address], [place] ACTIVATED CLOTTING TIMEon ACTIVATED CLOTTING TIME 110 sec Normal 82-152 T [facility] Comment on above: Performed By: #### 3 1792 #### [facility] [address] [place] [address], [place] ACTIVATED CLOTTING TIME 429 sec High 82-152 T [facility] Comment on above: Performed By: #### 8 [id number] #### [facility] [address] [place] [address], [place] ACTIVATED CLOTTING TIME 571 sec High 82-152 [facility] Comment on above: Performed By: #### 3 1792 #### [facility] [address] [place] [address], [place] ACTIVATED CLOTTING TIME 390 sec High 82-152 [facility] Comment on above: Performed By: #### 3 1792 #### [facility] [address] [place] [address], [place] ACTIVATED CLOTTING TIME 132 sec Normal 82-152 T [facility] Comment on above: Performed By: #### 8 [id number] #### [facility] [address] [facility] [place] [address], [facility] APTTon 03-22-2021 aPTT Coag (Bld) [Time] 29.5 s Normal 25.0-35.0 [facility] Comment on above: Order Comment: evalu ate Atelectasis Result Comment: ALL RESULTS MUST BE INTERPRETED WITH RESPECT TO BLOOD DRAWING ARTIFACT OR DILUTION ERROR OF ANTICOAGULANT AT THE TIME OF SAMPLING. THE APTT SHOULD NOT BE USED TO MONITOR UNFRACTIONATED HEPARIN THERAPY, THIS LABORATORY NO LONGER HAS AN ESTABLISHED THERAPEUTIC RANGE BASED ON THE APTT. IT IS RECOMMENDED THAT THE UFH - HEPARIN ASSAY (ANTI-XA ACTIVITY) BE USED FOR THIS PURPOSE. Performed By: #### 5 6101, [address] ####[facility] [address] aPTT Coag (Bld) [Time] 32.2 s Normal 25.0-35.0 [facility] Comment on above: Result Comment: ALL RESULTS MUST BE INTERPRETED WITH RESPECT TO BLOOD DRAWING ARTIFACT OR DILUTION ERROR OF ANTICOAGULANT AT THE TIME OF SAMPLING. THE APTT SHOULD NOT BE USED TO MONITOR UNFRACTIONATED HEPARIN THERAPY, THIS LABORATORY NO LONGER HAS AN ESTABLISHED THERAPEUTIC RANGE BASED ON THE APTT. IT IS RECOMMENDED THAT THE UFH - HEPARIN ASSAY (ANTI-XA ACTIVITY) BE USED FOR THIS PURPOSE. Performed By: #### 8 5499 #### [facility] [address] BASIC METABOLIC PANELon 03-06 Calcium [Mass/Vol] 8.2 mg/dL Low 8.6-10.3 [facility] Comment on above: Performed By: #### 3 1046, [id number] ####[facility] [place] [address], [facility] Chloride [Moles/Vol] 108 mmol/L High 98-107 [facility] Comment on above: Performed By: #### 3 1046, [id number] ####[facility] [place] [address], [facility] CO2 [Moles/Vol] 26 mmol/L Normal 21-31 [facility] Comment on above: Performed By: #### 3 1045, [id number] ####[facility] [facility].[place] [id number], [facility] Creatinine [Mass/Vol] 0.45 mg/dL Low 0.60-1.20 [facility] Comment on above: Performed By: #### 3 1045, [id number] ####[facility] [facility] [id number], [place] GFR/1.73 sq M.predicted among blacks MDRD (S/P/Bld) [Vol rate/Area] mL/min/{1.73_m2} Normal >60 [facility] Comment on above: Performed By: #### 3 1045, [id number] ####[facility] [facility] [place] [address], [facility] GFR/1.73 sq M.predicted among non-blacks MDRD (S/P/Bld) [Vol rate/Area] mL/min/{1.73_m2} Normal >60 [facility] Comment on above: Performed By: #### 3 1045, [id number] ####[facility] [facility] [place] [address], [facility] Glucose [Mass/Vol] 135 mg/dL High 70-100 [facility] Comment on above: Performed By: #### 3 1045, [id number] ####[facility] [facility] [place] [address], [place] Potassium [Moles/Vol] 3.8 mmol/L Normal 3.5-5.1 [facility] Comment on above: Performed By: #### 3 1045, [id number] ####[facility] [facility] [place] [address], [place] Sodium [Moles/Vol] 141 mmol/L Normal 136-145 [facility] Comment on above: Performed By: #### 3 1046, [id number] ####[facility] [place] [address], [place] Urea nitrogen [Mass/Vol] 24 mg/dL Normal 7-25 [facility] Comment on above: Performed By: #### 3 1046, 75923 ####[facility] [place] [address], [place] Calcium [Mass/Vol] 8.4 mg/dL Low 8.6-10.3 [facility] Comment on above: Performed By: #### 8 5499 #### [facility] [address] [place] [address], [place] Chloride [Moles/Vol] 105 mmol/L Normal 98-107 [facility] Comment on above: Performed By: #### 8 5499 #### [facility] [address] [place] [address], [place] CO2 [Moles/Vol] 28 mmol/L Normal 21-31 [facility] Comment on above: Performed By: #### 8 5499 #### [facility] [address] [place] [address], [place] Creatinine [Mass/Vol] 0.53 mg/dL Low 0.60-1.20 [facility] Comment on above: Performed By: #### 8 5499 #### [facility] [address] [place] [address], [place] GFR/1.73 sq M.predicted among blacks MDRD (S/P/Bld) [Vol rate/Area] mL/min/{1.73_m2} Normal >60 [facility] Comment on above: Performed By: #### 8 5499 #### [facility] [address] [place] [address], [place] GFR/1.73 sq M.predicted among non-blacks MDRD (S/P/Bld) [Vol rate/Area] mL/min/{1.73_m2} Normal >60 [facility] Comment on above: Performed By: #### 8 5499 #### [facility] [address] [place] [address], [facility] Glucose [Mass/Vol] 151 mg/dL High 70-100 [facility] Comment on above: Performed By: #### 8 5499 #### [facility] [address] [place] [address], [facility] Potassium [Moles/Vol] 3.9 mmol/L Normal 3.5-5.1 [facility] Comment on above: Performed By: #### 8 5499 #### [facility] [address] [place] [address], [facility] Sodium [Moles/Vol] 140 mmol/L Normal 136-145 [facility] Comment on above: Performed By: #### 8 5499 #### [facility] [address] [place] [address], [facility] Urea nitrogen [Mass/Vol] 25 mg/dL Normal 7-25 [facility] Comment on above: Performed By: #### 8 5499 #### [facility] [address] [place] [address], [facility] CARDIAC MAGNESIUM BLOODon Magnesium [Mass/Vol] 2.5 mg/dL Normal 1.9-2.7 [facility] Comment on above: Performed By: #### 3 1046, [id number] ####[facility], [place] [id number] [place] [address] CBC COMPLETE BLOOD COUNTon 0 03-22-2021 Erythrocyte distribution width (RBC) [Ratio] 13.0 % Normal 11.5-15.0 [facility] Comment on above: Order Comment: No: D o not add to previous draw Performed By: #### 8 5499 #### [facility] [address] [place] [address], [facility] Hematocrit (Bld) [Volume fraction] 32.1 % Low 36.0-45.0 [facility] Comment on above: Order Comment: No: D o not add to previous draw Performed By: #### 8 5499 #### [facility] [address] [place] [address], [facility] Hemoglobin (Bld) [Mass/Vol] 10.2 g/dL Low 12.0-15.0 [facility] Comment on above: Order Comment: No: D o not add to previous draw Performed By: #### 8 5499 #### [facility] [address] [place] [address], [facility] MCH (RBC) [Entitic mass] 30.4 pg Normal 27.0-33.0 [facility] Comment on above: Order Comment: No: D o not add to previous draw Performed By: #### 8 5499 #### [facility] [address] [place] [address], [facility] MCHC (RBC) [Mass/Vol] 31.8 g/dL Low 32.0-35.0 [facility] Comment on above: Order Comment: No: D o not add to previous draw Performed By: #### 8 5499 #### [facility] [address] [place] [address], [facility] MCV (RBC) [Entitic vol] 95.8 fL Normal 82.0-98.0 [facility] Comment on above: Order Comment: No: D o not add to previous draw Performed By: #### 8 5499 #### [facility] [address] [place] [id number], [facility] Nucleated RBC/100 WBC (Bld) [Ratio] 0 % Normal 0-0 [facility] Comment on above: Order Comment: No: D o not add to previous draw Performed By: #### 8 5499 #### [facility] [address] [facility] [place] [address], [facility] PLAT CNT 155 10*3/uL Normal 150-400 [facility] Comment on above: Order Comment: No: D o not add to previous draw Performed By: #### 8 5499 #### [facility] [address] [place] [address], [facility] RBC (Bld) [#/Vol] 3.35 10*6/uL Low 3.80-5.00 [facility] Comment on above: Order Comment: No: D o not add to previous draw Performed By: #### 8 5499 #### [facility] [address] [facility] [place] [address], [facility] WBC (Bld) [#/Vol] 14.75 10*3/uL High 4.00-10.60 [facility] Comment on above: Order Comment: No: D o not add to previous draw Performed By: #### 8 5499 #### [facility] [address] [place] [address], [facility] CBC W/DIFFon 03-22-2021 ABS IMM GRANS 0.1 10*3/uL Normal 0.0-0.2 The [facility] Comment on above: Performed By: #### 8 5499 #### [facility] [address] [place] [address], [facility] ABS NEUTROPHILS 10.5 10*3/uL High 1.6-7.6 [facility] Comment on above: Performed By: #### 8 5499 #### [facility] [address] [place] [address], [facility] Basophils (Bld) [#/Vol] 0.0 10*3/uL Normal 0.0-0.2 [facility] Comment on above: Performed By: #### 8 5499 #### [facility] [address] [place] [address], [facility] Basophils/100 WBC (Bld) 0.2 % Normal 0.0-1.0 [facility] Comment on above: Performed By: #### 8 5499 #### [facility] [address] [place] [address], [facility] Eosinophils (Bld) [#/Vol] 0.1 10*3/uL Normal 0.0-0.5 [facility] Comment on above: Performed By: #### 8 5499 #### [facility] [address] [place] [address], [facility] Eosinophils/100 WBC (Bld) 0.5 % Normal 0.0-6.0 [facility] Comment on above: Performed By: #### 8 5499 #### [facility] [address] [place] [address], [facility] Erythrocyte distribution width (RBC) [Ratio] 13.0 % Normal 11.5-15.0 [facility] Comment on above: Performed By: #### 8 5499 #### [facility] [address] [place] [address], [facility] Hematocrit (Bld) [Volume fraction] 27.3 % Low 36.0-45.0 [facility] Comment on above: Performed By: #### 8 5499 #### [facility] [address] [address], [facility] Hemoglobin (Bld) [Mass/Vol] 9.1 g/dL Low 12.0-15.0 [facility] Comment on above: Performed By: #### 8 5499 #### [facility] [address] [place] [address], [facility] IMMATURE GRANS 0.9 % Normal 0.0-1.0 [facility] Comment on above: Performed By: #### 8 5499 #### [facility] [address] [place] [id number], [facility] Lymphocytes (Bld) [#/Vol] 1.7 10*3/uL Normal 1.2-4.0 [facility] Comment on above: Performed By: #### 8 5499 #### [facility] [address] [facility] [place] [address], [facility] Lymphocytes/100 WBC (Bld) 13.2 % Low 20.0-45.0 [facility] Comment on above: Performed By: #### 8 5499 #### [facility] [address] [facility]. [address] MCH (RBC) [Entitic mass] 31.0 pg Normal 27.0-33.0 [facility] Comment on above: Performed By: #### 8 5499 #### [facility] [address] [facility] [place] [address], [facility] MCHC (RBC) [Mass/Vol] 33.3 g/dL Normal 32.0-35.0 [facility] Comment on above: Performed By: #### 8 5499 #### [facility] [address] [facility] [place] [address], [facility] MCV (RBC) [Entitic vol] 92.9 fL Normal 82.0-98.0 T [facility] Comment on above: Performed By: #### 8 5499 #### [facility] [address] [place] [address], [facility] Monocytes (Bld) [#/Vol] 0.7 10*3/uL Normal 0.1-1.0 [facility] Comment on above: Performed By: #### 8 5499 #### [facility] [address] [place] [address], [facility] MONOS 5.4 % Normal 5.0-12.0 [facility] Comment on above: Performed By: #### 8 5499 #### [facility] [address] [facility] [place] [address], [facility] Neutrophils/100 WBC (Bld) 79.8 % High 40.0-72.0 [facility] Comment on above: Performed By: #### 8 5499 #### [facility] [address] [place] [address], [facility] Nucleated RBC/100 WBC (Bld) [Ratio] 0 % Normal 0-0 [facility] Comment on above: Performed By: #### 8 5499 #### [facility] [address] [place] [address], [facility] PLAT CNT 142 10*3/uL Low 150-400 [facility] Comment on above: Performed By: #### 8 5499 #### [facility] [address] [place] [address], [facility] RBC (Bld) [#/Vol] 2.94 10*6/uL Low 3.80-5.00 [facility] Comment on above: Performed By: #### 8 5499 #### [facility] [address] [place] [address], [facility] WBC (Bld) [#/Vol] 13.20 10*3/uL High 4.00-10.60 [facility] Comment on above: Performed By: #### 8 5499 #### [facility] [address] [place] [address], [facility] FIBRINOGENon 03-22-2021 FIBRINOGEN 242 mg/dL Normal 150-425 [facility] Comment on above: Performed By: #### 8 5499 #### [facility] [address] [place] [address], [facility] LACTATE BLOODon 03-22-2021 Lactate [Moles/Vol] 0.6 mmol/L Normal 0.5-2.2 [facility] Comment on above: Order Comment: No: D o not add to previous draw Performed By: #### 3 0965 #### [facility] [address] [place] [address], [facility] Lactate [Moles/Vol] 0.9 mmol/L Normal 0.5-2.2 [facility] Comment on above: Performed By: #### 1 0054 ####[facility] [place] [address], [facility] MAGNESIUM BLOODon 03-22-2021 Magnesium [Mass/Vol] 3.7 mg/dL High 1.9-2.7 [facility] Comment on above: Performed By: #### 8 5499 #### [facility] [address] [place] [address], [place] PERFUSION BLOOD PANELon 03-06 BASE EXCESS 2.0 mmol/L Normal -2.0-3.0 [facility] Comment on above: Performed By: #### 8 5499 #### [facility] [address] [place] [address], [facility] Glucose [Mass/Vol] 158 mg/dL High 70-105 [facility] Comment on above: Performed By: #### 8 5499 #### [facility] [address] [place] [address], [place] Hematocrit (Bld) [Volume fraction] 25 % Low 38-51 [facility] Comment on above: Performed By: #### 8 5499 #### [facility] [address] [place] [address], [facility] Hemoglobin (Bld) [Mass/Vol] 8.5 g/dL Low 12.0-17.0 [facility] Comment on above: Performed By: #### 8 5499 #### [facility] [address] [place] [address], [facility] IONIZED CALCIUM 1.30 mmol/L Normal 1.12-1.32 [facility] Comment on above: Performed By: #### 8 5499 #### [facility] [address] [place] [address], [facility] Oxygen (Bld) [Partial pressure] 173.0 mm[Hg] High 80.0-105.0 [facility] Comment on above: Performed By: #### 8 5499 #### [facility] [address] [place] [address], [place] PCO2 39.5 mmHg Normal 35.0-45.0 [facility] Comment on above: Performed By: #### 8 5499 #### [facility] [address] [place] [address], [place] pH (Bld) 7.44 [pH] Normal 7.35-7.45 [facility] Comment on above: Performed By: #### 8 5499 #### [facility] [address] [place] [address], [place] Potassium [Moles/Vol] 4.0 mmol/L Normal 3.5-4.9 [facility] Comment on above: Performed By: #### 8 5499 #### [facility] [address] [place] [address], [place] Sodium [Moles/Vol] 138 mmol/L Normal 138-146 [facility] Comment on above: Performed By: #### 8 5499 #### [facility] [address] [place] [address], [place] BASE EXCESS 2.0 mmol/L Normal -2.0-3.0 [facility] Comment on above: Performed By: #### 3 1791 #### [facility] [address] [place] [address], [place] Glucose [Mass/Vol] 159 mg/dL High 70-105 [facility] Comment on above: Performed By: #### 3 1791 #### [facility] [address] [place] [address], [place] Hematocrit (Bld) [Volume fraction] 21 % Low 38-51 [facility] Comment on above: Performed By: #### 3 1791 #### [facility] [address] [place] [address], [facility] Hemoglobin (Bld) [Mass/Vol] 7.1 g/dL Low 12.0-17.0 [facility] Comment on above: Performed By: #### 3 1791 #### [facility] [address] [place] [address], [facility] IONIZED CALCIUM 1.29 mmol/L Normal 1.12-1.32 [facility] Comment on above: Performed By: #### 3 1791 #### [facility] [address] [place] [address], [facility] Oxygen (Bld) [Partial pressure] 175.0 mm[Hg] High 80.0-105.0 [facility] Comment on above: Performed By: #### 3 1791 #### [facility] [address] [place] [address], [facility] PCO2 38.9 mmHg Normal 35.0-45.0 [facility] Comment on above: Performed By: #### 3 1791 #### [facility] [address] [place] [address], [facility] pH (Bld) 7.44 [pH] Normal 7.35-7.45 [facility] Comment on above: Performed By: #### 3 1791 #### [facility] [address] [place] [address], [place] Potassium [Moles/Vol] 4.0 mmol/L Normal 3.5-4.9 [facility] Comment on above: Performed By: #### 3 1791 #### [facility] [address] [place] [address], [place] Sodium [Moles/Vol] 138 mmol/L Normal 138-146 [facility] Comment on above: Performed By: #### 3 1791 #### [facility] [address] [place] [address], [place] BASE EXCESS 4.0 mmol/L High -2.0-3.0 [facility] Comment on above: Performed By: #### 3 1791 #### [facility] [address] [place] [address], [place] Glucose [Mass/Vol] 160 mg/dL High 70-105 [facility] Comment on above: Performed By: #### 3 1791 #### [facility] [address] [place] [address], [place] Hematocrit (Bld) [Volume fraction] 26 % Low 38-51 [facility] Comment on above: Performed By: #### 3 1791 #### [facility] [address] [place] [address], [place] Hemoglobin (Bld) [Mass/Vol] 8.8 g/dL Low 12.0-17.0 [facility] Comment on above: Performed By: #### 3 1791 #### [facility] [address] [place] [address], [place] IONIZED CALCIUM 1.00 mmol/L Low 1.12-1.32 [facility] Comment on above: Performed By: #### 3 1791 #### [facility] [address] [place] [address], [place] Oxygen (Bld) [Partial pressure] 411.0 mm[Hg] High 80.0-105.0 [facility] Comment on above: Performed By: #### 3 1791 #### [facility] [address] [place] [address], [place] PCO2 54.4 mmHg High 35.0-45.0 [facility] Comment on above: Performed By: #### 3 1791 #### [facility] [address] [place] [address], [place] pH (Bld) 7.36 [pH] Normal 7.35-7.45 [facility] Comment on above: Performed By: #### 3 1791 #### [facility] [address] [place] [address], [facility] Potassium [Moles/Vol] 4.3 mmol/L Normal 3.5-4.9 [facility] Comment on above: Performed By: #### 3 1791 #### [facility] [address] [place] [address], [facility] Sodium [Moles/Vol] 137 mmol/L Low 138-146 [facility] Comment on above: Performed By: #### 3 1791 #### [facility] [address] [place] [address], [facility] BASE EXCESS 1.0 mmol/L Normal -2.0-3.0 [facility] Comment on above: Performed By: #### 3 1791 #### [facility] [address] [place] [address], [facility] Glucose [Mass/Vol] 121 mg/dL High 70-105 [facility] Comment on above: Performed By: #### 3 1791 #### [facility] [address] [place] [address], [facility] Hematocrit (Bld) [Volume fraction] 22 % Low 38-51 [facility] Comment on above: Performed By: #### 3 1791 #### [facility] [address] [place] [address], [facility] Hemoglobin (Bld) [Mass/Vol] 7.5 g/dL Low 12.0-17.0 [facility] Comment on above: Performed By: #### 3 1791 #### [facility] [address] [place] [address], [facility] IONIZED CALCIUM 0.98 mmol/L Low 1.12-1.32 [facility] Comment on above: Performed By: #### 3 1791 #### [facility] [address] [place] [address], [facility] Oxygen (Bld) [Partial pressure] 40.0 mm[Hg] Normal [facility] Comment on above: Performed By: #### 3 1791 #### [facility] [address] [place] [address], [place] PCO2 45.9 mmHg Normal 41.0-51.0 [facility] Comment on above: Performed By: #### 3 1791 #### [facility] [address] [place] [address], [place] pH (Bld) 7.38 [pH] Normal 7.31-7.41 [facility] Comment on above: Performed By: #### 3 1791 #### [facility] [address] [place] [address], [place] Potassium [Moles/Vol] 4.6 mmol/L Normal 3.5-4.9 [facility] Comment on above: Performed By: #### 3 1791 #### [facility] [address] [place] [address], [place] Sodium [Moles/Vol] 137 mmol/L Low 138-146 [facility] Comment on above: Performed By: #### 3 1791 #### [facility] [address] [place] [address], [place] BASE EXCESS 4.0 mmol/L High -2.0-3.0 [facility] Comment on above: Performed By: #### 8 5499 #### [facility] [address] [place] [address], [place] Glucose [Mass/Vol] 107 mg/dL High 70-105 [facility] Comment on above: Performed By: #### 8 5499 #### [facility] [address] [place] [address], [place] Hematocrit (Bld) [Volume fraction] 24 % Low 38-51 [facility] Comment on above: Performed By: #### 8 5499 #### [facility] [address] [place] [address], [facility] Hemoglobin (Bld) [Mass/Vol] 8.2 g/dL Low 12.0-17.0 [facility] Comment on above: Performed By: #### 8 5499 #### [facility] [address] [place] [address], [facility] IONIZED CALCIUM 0.98 mmol/L Low 1.12-1.32 [facility] Comment on above: Performed By: #### 8 5499 #### [facility] [address] [place] [address], [facility] Oxygen (Bld) [Partial pressure] 424.0 mm[Hg] High 80.0-105.0 [facility] Comment on above: Performed By: #### 8 5499 #### [facility] [address] [place] [address], [facility] PCO2 47.6 mmHg High 35.0-45.0 [facility] Comment on above: Performed By: #### 8 5499 #### [facility] [address] [place] [address], [facility] pH (Bld) 7.40 [pH] Normal 7.35-7.45 [facility] Comment on above: Performed By: #### 8 5499 #### [facility] [address] [place] [address], [place] Potassium [Moles/Vol] 3.6 mmol/L Normal 3.5-4.9 [facility] Comment on above: Performed By: #### 8 5499 #### [facility] [address] [place] [address], [place] Sodium [Moles/Vol] 138 mmol/L Normal 138-146 [facility] Comment on above: Performed By: #### 8 5499 #### [facility] [address] [place] [address], [facility] BASE EXCESS 3.0 mmol/L Normal -2.0-3.0 [facility] Comment on above: Performed By: #### 3 1791 #### [facility] [address] [place] [address], [facility] Glucose [Mass/Vol] 116 mg/dL High 70-105 [facility] Comment on above: Performed By: #### 3 1791 #### [facility] [address] [place] [address], [facility] Hematocrit (Bld) [Volume fraction] 31 % Low 38-51 [facility] Comment on above: Performed By: #### 3 1791 #### [facility] [address] [place] [address], [facility] Hemoglobin (Bld) [Mass/Vol] 10.5 g/dL Low 12.0-17.0 [facility] Comment on above: Performed By: #### 3 1791 #### [facility] [address] [place] [address], [facility] IONIZED CALCIUM 1.14 mmol/L Normal 1.12-1.32 [facility] Comment on above: Performed By: #### 3 1791 #### [facility] [address] [place] [id number], [facility] Oxygen (Bld) [Partial pressure] 296.0 mm[Hg] High 80.0-105.0 [facility] Comment on above: Performed By: #### 3 1791 #### [facility] [address] [place] [id number], [facility] PCO2 39.1 mmHg Normal 35.0-45.0 [facility] Comment on above: Performed By: #### 3 1791 #### [facility] [address] [place] [address], [place] pH (Bld) 7.45 [pH] Normal 7.35-7.45 [facility] Comment on above: Performed By: #### 3 1792 #### [facility] [address] [place] [address], [place] Potassium [Moles/Vol] 3.5 mmol/L Normal 3.5-4.9 [facility] Comment on above: Performed By: #### 3 1792 #### [facility] [address] [place] [address], [place] Sodium [Moles/Vol] 139 mmol/L Normal 138-146 [facility] [facility] Comment on above: Performed By: #### 3 1792 #### [facility] [address] [place] [address], [place] BASE EXCESS 3.0 mmol/L Normal -2.0-3.0 [facility] Comment on above: Performed By: #### 3 0738 #### [facility] [address] [place] [address], [place] Glucose [Mass/Vol] 107 mg/dL High 70-105 [facility] Comment on above: Performed By: #### 3 0738 #### [facility] [address] [place] [address], [place] Hematocrit (Bld) [Volume fraction] 33 % Low 38-51 [facility] Comment on above: Performed By: #### 3 0738 #### [facility] [address] [place] [address], [place] Hemoglobin (Bld) [Mass/Vol] 11.2 g/dL Low 12.0-17.0 [facility] Comment on above: Performed By: #### 3 0738 #### [facility] [address] [place] [address], [place] IONIZED CALCIUM 1.16 mmol/L Normal 1.12-1.32 [facility] Comment on above: Performed By: #### 3 0738 #### [facility] [address] [place] [address], [facility] Oxygen (Bld) [Partial pressure] 234.0 mm[Hg] High 80.0-105.0 [facility] Comment on above: Performed By: #### 3 0738 #### [facility] [address] [place] [address], [place] PCO2 41.9 mmHg Normal 35.0-45.0 [facility] Comment on above: Performed By: #### 3 0738 #### [facility] [address] [place] [address], [place] pH (Bld) 7.42 [pH] Normal 7.35-7.45 [facility] Comment on above: Performed By: #### 3 0738 #### [facility] [address] [place] [address], [place] Potassium [Moles/Vol] 3.8 mmol/L Normal 3.5-4.9 [facility] Comment on above: Performed By: #### 3 0738 #### [facility] [address] [place] [address], [place] Sodium [Moles/Vol] 138 mmol/L Normal 138-146 [facility] Comment on above: Performed By: #### 3 0738 #### [facility] [address] [place] [address], [place] POC GLUCOSE LABon 03-22-2021 Glucose [Mass/Vol] 117 mg/dL High 70-100 [facility] Comment on above: Performed By: #### 3 1595 #### [facility] [address] [place] [address], [place] Glucose [Mass/Vol] 110 mg/dL High 70-100 [facility] Comment on above: Performed By: #### 8 5499 #### [facility] [address] [place] [address], [place] Glucose [Mass/Vol] 143 mg/dL High 70-100 [facility] Comment on above: Performed By: #### 8 5499 #### [facility] [address] [place] [address], [place] Glucose [Mass/Vol] 169 mg/dL High 70-100 [facility] Comment on above: Performed By: #### 5 0608 #### [facility] [address] [place] [address], [place] Glucose [Mass/Vol] 88 mg/dL Normal 70-100 [facility] Comment on above: Performed By: #### 3 1595 #### [facility] [address] [facility] [place] [address], [facility] PORTABLE CHEST 1 VIEWon 03-06 PORTABLE CHEST [address] [facility] Department of Radiology [address] [place] [id number] Patient Name: THIAGO KRISHNAN : 1950 Sex: F Age: Race: White Pt. Location: [place] [address] Patient Status: I Ordered Date: 03/22/2021 12:30:00 PM Completed Date: 03/22/2021 01:31 PM Requesting Provider: CHELE SANCHEZ Attending Provider: CHELE SANCHEZ Report Copy To: Signs & Symptoms: Post CABG History: Comments: Check Chest Tube Position, ON ARRIVAL TO CVU Exam: PORTABLE CHEST 1 VIEW PORTABLE CHEST 1 VIEW 03/22/2021 1:31 PM CLINICAL INDICATIONS: Post CABG TECHNOLOGIST COMMENTS: SOB QUESTION FOR THE RADIOLOGIST: Check Chest Tube Position, ON ARRIVAL TO CVU PROTOCOL: AP(PA) view was obtained. COMPARISON: March 20 FINDINGS: There is a heart valve marker now seen with right chest tube and mediastinal drain in place There is a right central line placed to the mid to distal SVC There is slight increased cardiomegaly and/or pericardial effusion There is no visible pneumothorax There is no significant pleural effusion There is mild congested appearance There is some left greater than right basilar atelectasis and mild airspace disease Suspected adenoma changes in the right lower chest without less conspicuous with postsurgical changes in position IMPRESSION: Right IJ line placed to the mid to distal SVC without a visible pneumothorax Increased cardiomegaly and/or pericardial effusion with congestive changes and left greater than right basilar atelectasis, edema or other airspace disease No significant effusions Follow-up suggested to show clearing when appropriate Electronically signed: Zina Brenner. Transcribed by: [email or web address], User Resident: Electronically Signed by: ZINA BRENNER @ 03/22/2021 01:42 PM Normal The [facility] Comment on above: Order Comment: Check Chest Tube Position, ON ARRIVAL TO CVU PROTHROMBIN TIMEon INR Coag (PPP) [Relative time] 1.22 {INR} High 0.91-1.16 [facility] Comment on above: Order Comment: No: D o not add to previous draw Result Comment: ACCC P RECOMMENDED INR FOR WARFARIN THERAPY ------- CONDITION INR PROPHYLAXIS OF VENOUS THROMBOSIS 2-3 (HIGH-RISK SURGERY) TREATMENT OF VENOUS THROMBOSIS 2-3 TREATMENT OF PULMONARY EMBOLISM 2-3 PREVENTION OF SYSTEMIC EMBOLISM: 2-3 ACUTE MYOCARDIAL INFARCTION TISSUE HEART VALVES VALVULAR HEART DISEASE ATRIAL FIBRILLATION RECURRENT SYSTEMIC EMBOLISM MECHANICAL HEART VALVE 2.5-3.5 FROM: ORAL ANTICOAGULANTS. MECHANISM OF ACTION, CLINICAL EFFECTIVENESS, AND OPTIMAL THERAPEUTIC RANGE. CHEST 1995;108:231S-246S. Performed By: #### 8 [id number] #### [facility] [address] [facility]. [address] PT Coag (PPP) [Time] 15.4 s High 12.3-14.8 [facility] Comment on above: Order Comment: No: D o not add to previous draw Result Comment: ALL RESULTS MUST BE INTERPRETED WITH RESPECT TO BLOOD DRAWING ARTIFACT OR DILUTION ERROR OF ANTICOAGULANT AT THE TIME OF SAMPLING. Performed By: #### 8 [id number] #### [facility] [address] [place] [address], [facility] INR Coag (PPP) [Relative time] 1.48 {INR} High 0.91-1.16 [facility] Comment on above: Result Comment: ACCC P RECOMMENDED INR FOR WARFARIN THERAPY ------- CONDITION INR PROPHYLAXIS OF VENOUS THROMBOSIS 2-3 (HIGH-RISK SURGERY) TREATMENT OF VENOUS THROMBOSIS 2-3 TREATMENT OF PULMONARY EMBOLISM 2-3 PREVENTION OF SYSTEMIC EMBOLISM: 2-3 ACUTE MYOCARDIAL INFARCTION TISSUE HEART VALVES VALVULAR HEART DISEASE ATRIAL FIBRILLATION RECURRENT SYSTEMIC EMBOLISM MECHANICAL HEART VALVE 2.5-3.5 FROM: ORAL ANTICOAGULANTS. MECHANISM OF ACTION, CLINICAL EFFECTIVENESS, AND OPTIMAL THERAPEUTIC RANGE. CHEST 1995;108:231S-246S. Performed By: #### 8 [id number] #### [facility] [address] PT Coag (PPP) [Time] 18.0 s High 12.3-14.8 [facility] Comment on above: Result Comment: ALL RESULTS MUST BE INTERPRETED WITH RESPECT TO BLOOD DRAWING ARTIFACT OR DILUTION ERROR OF ANTICOAGULANT AT THE TIME OF SAMPLING. Performed By: #### 8 [id number] #### [facility] [address] Pulmonary Functionon 021 Pulmonary Function MR #: [id number] [facility] PT. Name: Thiago Krishnan Date: 03/20/2021 Date of : 1950 Patient Type: # Pulmonary Function INTERPRETATION CLINICAL INDICATION: The patient is 70-year-old female with BMI of 18.9. Indication is preoperative evaluation. LUNG MECHANICS: Spirometry shows normal FEV1 with 1.95 L and 87% of predicted. Normal FVC at 99% which is 2.82 L. FEV1/FVC shows mild obstruction at 69%. Flow volume loop shows obstructive pattern at the level of small airway. MVV is normal. No postbronchodilator response was ordered. LUNG VOLUMES: (BODY BOX TECHNIQUE) The residual volume is enlarged to 131% of predicted and total lung capacity is 111%. LUNG DIFFUSION: Uncorrected DLCO is 83%. Corrected DLCO is 79%. DLCO corrected alveolar volume is 93%. CLINICAL IMPRESSION: The study shows mild obstructive pattern consistent with mild obstructive lung disease Electronically Signed by: Justino Begum MD 03/22/2021 03:31 P Justino Begum MD [facility] Date Dict: 03/22/2021/01:57 P/Justino Begum MD Date Trans: 03/22/2021 01:57 P/ [id number] cc: Balta Bernal M.D. [address] [place] [address] Normal The [facility] RBC'S 2 UNITSon 03-22-2021 CROSSMATCH INTERP 1 COMP Normal [facility] Comment on above: Performed By: #### 8 [id number] #### [facility] [address] [place] [address], [facility] CROSSMATCH INTERP 2 COMP Normal [facility] Comment on above: Performed By: #### 8 [id number] #### [facility] [address] [place] [address], [facility] PRODUCT CODE 1 E0336 Normal The [facility] Comment on above: Performed By: #### 8 [id number] #### [facility] [address] [place] [address], [facility] PRODUCT CODE 2 E0336 Normal The [facility] Comment on above: Performed By: #### 8 [id number] #### [facility] [address] [place] [address], [facility] PRODUCT STATUS 1 RE Normal [facility] Comment on above: Result Comment: Resu lt changed by IF on 03/22/2021 09:49. The previous value was XM. Result changed by IF on 03/22/2021 12:46. The previous value was IS. Result changed by IF on 03/25/2021 06:46. The previous value was XM. Performed By: #### 8 [id number] #### [facility] [address] [place] [address], [facility] PRODUCT STATUS 2 RE Normal [facility] Comment on above: Result Comment: Resu lt changed by IF on 03/22/2021 09:49. The previous value was XM. Result changed by IF on 03/22/2021 12:46. The previous value was IS. Result changed by IF on 03/25/2021 06:46. The previous value was XM. Performed By: #### 8 [id number] #### [facility] [address] [place] [address], [facility] UNIT ABO 1 A Normal The [facility] Comment on above: Performed By: #### 8 [id number] #### [facility] [address] [place] [address], [facility] UNIT ABO 2 A Normal [facility] Comment on above: Performed By: #### 8 [id number] #### [facility] [address] [place] [address], [facility] UNIT ID 1 [id number] Normal The [facility] Comment on above: Performed By: #### 8 [id number] #### [facility] [address] [place] [address], [facility] UNIT ID 2 [id number] Normal The [facility] Comment on above: Performed By: #### 8 [id number] #### [facility] [address] [place] [address], [facility] UNIT RH 1 Positive Normal The [facility] Comment on above: Performed By: #### 8 [id number] #### [facility] [address] [place] [address], [facility] UNIT RH 2 Positive Normal [facility] Comment on above: Performed By: #### 8 [id number] #### [facility] [address] [place], [place] [address] *MRSA/MSSA DNA NASALon 03-20 *MRSA/MSSA DNA NASAL Clinical Report: (D ) Specimen: NASAL SWAB Collected: 03/20/2021 13:16 Status: Final Last Updated: 03/21/2021 15:36 MSSA DNA (Final) Negative MRSA DNA (Final) Negative Normal [facility] Comment on above: Performed By: #### 3 1595 #### [facility] [address] [place], [place] [address] *SARS-CoV-2 COVID-19on 03-20 SARS-CoV-2 (COVID-19) RNA GÓMEZ+probe Ql (Unsp spec) Not detected Normal Not Detected The [facility] Comment on above: Order Comment: The A ptima SARS-CoV-2 assay is a nucleic acid amplification test intended for the qualitative detection of RNA from SARS-CoV-2 isolated and purified from nasopharyngeal (LIGHTOUT EXAMINER),oropharyngeal (OP), nasal swab, sputum, and bronchoalveolar lavage (BAL) specimens from patients with signs and symptoms of infection who are suspected of COVID-19. Results are for the identification of SARS-CoV-2 RNA. The SARS-CoV-2 RNA is generally detectable during the acute phase of infection. The Aptima SARS-CoV-2 Assay on the Lima and Lima Fusion system is intended for use by laboratory personnel specifically instructed and trained in the operation of the Lima and Lima Fusion system. The Aptima SARS-CoV-2 assay is only for use under the Food and Drug Administration Emergency Use Authorization. Testing is limited to laboratories certified under the Clinical Laboratory Improvement Amendments of 1988 (CLIA), 42 U.S.C. ???263a, to perform high complexity tests. Not Detected: Not detected does not preclude SARS-CoV-2 infection and should not be used as the sole basis for patient management decisions. Not detected results must be combined with clinical observations, patient history, and epidemiological information. Performed By: #### 3 1792 #### [facility] [address] [employer] APTTon 03-20-2021 aPTT Coag (Bld) [Time] 34.1 s Normal 25.0-35.0 Th e [facility] Comment on above: Result Comment: ALL RESULTS MUST BE INTERPRETED WITH RESPECT TO BLOOD DRAWING ARTIFACT OR DILUTION ERROR OF ANTICOAGULANT AT THE TIME OF SAMPLING. THE APTT SHOULD NOT BE USED TO MONITOR UNFRACTIONATED HEPARIN THERAPY, THIS LABORATORY NO LONGER HAS AN ESTABLISHED THERAPEUTIC RANGE BASED ON THE APTT. IT IS RECOMMENDED THAT THE UFH - HEPARIN ASSAY (ANTI-XA ACTIVITY) BE USED FOR THIS PURPOSE. Performed By: #### 8 [id number] #### [facility] [address] ARTERIAL BLOOD GAS W/COOXon 03-20-2021 BASE EXCESS 5 mmol/L High -2-3 The [facility] Comment on above: Performed By: #### 8 [id number] #### [facility] [address] [place] [address], [place] COHB 0.8 % Normal 0.0-1.5 The [facility] Comment on above: Performed By: #### 8 [id number] #### [facility] [address] [place] [address], [place] FIO2 21 % Normal The [facility] Comment on above: Performed By: #### 8 [id number] #### [facility] [address] [place] [address], [place] HCO3 (Bld) [Moles/Vol] 28 mmol/L Normal 21-28 Th e [facility] Comment on above: Performed By: #### 8 [id number] #### [facility] [address] [place] [address], [place] METHB 0.8 % Normal 0.0-1.5 The [facility] Comment on above: Performed By: #### 8 [id number] #### [facility] [address] [place] [address], [place] Oxygen (Bld) [Partial pressure] 116 mm[Hg] Critically high 83-108 The [facility] Comment on above: Performed By: #### 8 [id number] #### [facility] [address] [place] [address], [place] Oxygen saturation in Blood 97.0 % Normal 94.0-97.0 [facility] Comment on above: Performed By: #### 8 [id number] #### [facility] [address] [place] [address], [place] PCO2 36 mmHg Normal 35-45 The [facility] Comment on above: Performed By: #### 8 [id number] #### [facility] [address] pH (Bld) 7.50 [pH] High 7.35-7.45 The [facility] Comment on above: Performed By: #### 8 5499 #### [facility] [address] THB 13.1 g/dL Normal 12.0-16.3 The [facility] Comment on above: Performed By: #### 8 5499 #### [facility] [address] CBC W/DIFFon 03-20-2021 ABS IMM GRANS 0.0 10*3/uL Normal 0.0-0.2 The [facility] Comment on above: Performed By: #### 8 [id number] #### [facility] [address] ABS NEUTROPHILS 4.5 10*3/uL Normal 1.6-7.6 The [facility] Comment on above: Performed By: #### 8 [id number] #### [facility] [address] Basophils (Bld) [#/Vol] 0.0 10*3/uL Normal 0.0-0.2 The [facility] Comment on above: Performed By: #### 8 5499 #### [facility] [address] Basophils/100 WBC (Bld) 0.4 % Normal 0.0-1.0 T he [facility] Comment on above: Performed By: #### 8 [id number] #### [facility] [address] Eosinophils (Bld) [#/Vol] 0.1 10*3/uL Normal 0.0-0.5 The [facility] Comment on above: Performed By: #### 8 [id number] #### [facility] [address] [place] [address], [facility] Eosinophils/100 WBC (Bld) 1.2 % Normal 0.0-6.0 The [facility] Comment on above: Performed By: #### 8 [id number] #### [facility] [address] [place] [address], [facility] Erythrocyte distribution width (RBC) [Ratio] 13.1 % Normal 11.5-15.0 The [facility] Comment on above: Performed By: #### 8 [id number] #### [facility] [address] [place] [address], [facility] Hematocrit (Bld) [Volume fraction] 42.7 % Normal 36.0-45.0 The [facility] Comment on above: Performed By: #### 8 [id number] #### [facility] [address] [facility] [place] [address], [facility] Hemoglobin (Bld) [Mass/Vol] 14.0 g/dL Normal 12.0-15.0 The [facility] Comment on above: Performed By: #### 8 5499 #### [facility] [address] [facility] [place] [address], [facility] IMMATURE GRANS 0.1 % Normal 0.0-1.0 The [facility] Comment on above: Performed By: #### 8 [id number] #### [facility] [address] [place] [address], [facility] Lymphocytes (Bld) [#/Vol] 1.7 10*3/uL Normal 1.2-4.0 The [facility] Comment on above: Performed By: #### 8 [id number] #### [facility] [address] [place] [address], [facility] Lymphocytes/100 WBC (Bld) 24.1 % Normal 20.0-45.0 The [facility] Comment on above: Performed By: #### 8 [id number] #### [facility] [address] MCH (RBC) [Entitic mass] 30.7 pg Normal 27.0-33.0 The [facility] Comment on above: Performed By: #### 8 [id number] #### [facility] [address] [facility] [address] MCHC (RBC) [Mass/Vol] 32.8 g/dL Normal 32.0-35.0 The [facility] Comment on above: Performed By: #### 8 [id number] #### [facility] [address] [place] [address], [facility] MCV (RBC) [Entitic vol] 93.6 fL Normal 82.0-98.0 T kurt [facility] Comment on above: Performed By: #### 8 5499 #### [facility] [address] Monocytes (Bld) [#/Vol] 0.7 10*3/uL Normal 0.1-1.0 The [facility] Comment on above: Performed By: #### 8 5499 #### [facility] [address] MONOS 9.8 % Normal 5.0-12.0 The [facility] Comment on above: Performed By: #### 8 5499 #### [facility] [address] Neutrophils/100 WBC (Bld) 64.4 % Normal 40.0-72.0 The [facility] Comment on above: Performed By: #### 8 5499 #### [facility] [address] [place] [address], [facility] Nucleated RBC/100 WBC (Bld) [Ratio] 0 % Normal 0-0 The [facility] Comment on above: Performed By: #### 8 [id number] #### [facility] [address] [facility] [place] [address], [facility] PLAT CNT 289 10*3/uL Normal 150-400 The [facility] Comment on above: Performed By: #### 8 [id number] #### [facility] [address] [facility] [place] [address], [facility] RBC (Bld) [#/Vol] 4.56 10*6/uL Normal 3.80-5.00 The [facility] Comment on above: Performed By: #### 8 [id number] #### [facility] [address] [facility] [place] [address], [facility] WBC (Bld) [#/Vol] 6.93 10*3/uL Normal 4.00-10.60 The [facility] Comment on above: Performed By: #### 8 [id number] #### [facility] [address] [place], [place] [id number] [place] [address] CHEST AND LATERALon 03-20-20 CHEST AND LATERAL [facility] Department of Radiology [address] [place], [place] [id number] Patient Name: THIAGO KRISHNAN : 1950 Sex: F Age: Race: White Pt. Location: Patient Status: D Ordered Date: 03/20/2021 12:25:00 PM Completed Date: 03/20/2021 12:31 PM Requesting Provider: CHELE SANCHEZ Attending Provider: TANA BARNETT Report Copy To: KALLIE CHASE Signs & Symptoms: I34.0 Nonrheumatic mitral (valve) insufficiency I10 History: Comments: evaluate Exam: CHEST AND LATERAL CHEST AND LATERAL 03/20/2021 12:31 PM CLINICAL INDICATIONS: I34.0 Nonrheumatic mitral (valve) insufficiency I10 Chest pain. TECHNOLOGIST COMMENTS: Patient states pre-op evaluation denies any known history QUESTION FOR THE RADIOLOGIST: evaluate PROTOCOL: AP(PA) and Lateral views were obtained. COMPARISON: None FINDINGS: Cardiac silhouette size is at the upper limits normal. No congestive features or pleural effusion. Calcified granulomas are noted. These indicates sequela of prior granulomatous disease. There is no pneumothorax or free air beneath the diaphragm. No new infiltrate or consolidation IMPRESSION: Chronic findings as detailed above Electronically signed: Savannah Bradley. Transcribed by: [email or web address], User Resident: Electronically Signed by: SAVANNAH BRADLEY @ 03/21/2021 10:05 AM Normal [facility] Comment on above: Order Comment: evalu ate COMP METABOLIC PANELon 03-20 Albumin [Mass/Vol] 4.7 g/dL Normal 3.5-5.7 [facility] Comment on above: Performed By: #### 3 0965 #### [facility] [address] [place] [address], [facility] ALKALINE PHOSPH 84 IU/L Normal 34-[address] [facility] Comment on above: Performed By: #### 3 0965 #### [facility] [address] [facility] [place] [address], [facility] ALT [Catalytic activity/Vol] 20 U/L Normal 7-52 The [facility] Comment on above: Performed By: #### 3 0965 #### [facility] [address] [place] [address], [facility] AST [Catalytic activity/Vol] 16 U/L Normal 13-39 The [facility] Comment on above: Performed By: #### 3 0965 #### [facility] [address] [facility] [place] [address], [place] Bilirubin [Mass/Vol] 0.5 mg/dL Normal 0.3-1.0 The [facility] Comment on above: Performed By: #### 3 0965 #### [facility] [address] [place] [address], [place] Calcium [Mass/Vol] 9.7 mg/dL Normal 8.6-10.3 [facility] Comment on above: Performed By: #### 3 0965 #### [facility] [address] [place] [address], [place] Chloride [Moles/Vol] 100 mmol/L Normal 98-107 The [facility] Comment on above: Performed By: #### 3 0965 #### [facility] [address] [place] [address], [place] CO2 [Moles/Vol] 33 mmol/L High 21-[address] [facility] Comment on above: Performed By: #### 3 0965 #### [facility] [address] [place] [address], [place] Creatinine [Mass/Vol] 0.64 mg/dL Normal 0.60-1.20 [facility] Comment on above: Performed By: #### 3 0965 #### [facility] [address] [place] [address], [place] GFR/1.73 sq M.predicted among blacks MDRD (S/P/Bld) [Vol rate/Area] mL/min/{1.73_m2} Normal >60 The [facility] Comment on above: Performed By: #### 3 0965 #### [facility] [address] [place] [address], [place] GFR/1.73 sq M.predicted among non-blacks MDRD (S/P/Bld) [Vol rate/Area] mL/min/{1.73_m2} Normal >60 The [facility] Comment on above: Performed By: #### 3 0965 #### [facility] [address] [place] [address], [place] Glucose [Mass/Vol] 87 mg/dL Normal 70-100 [facility] Comment on above: Performed By: #### 3 0965 #### [facility] [address] [place] [address], [place] Potassium [Moles/Vol] 4.3 mmol/L Normal 3.5-5.1 The [facility] Comment on above: Performed By: #### 3 0965 #### [facility] [address] [place] [address], [place] Protein [Mass/Vol] 7.8 g/dL Normal 6.0-8.3 [facility] Comment on above: Performed By: #### 3 0965 #### [facility] [address] [facility] [place] [address], [place] Sodium [Moles/Vol] 137 mmol/L Normal 136-145 [facility] Comment on above: Performed By: #### 3 0965 #### [facility] [address] [place] [address], [facility] Urea nitrogen [Mass/Vol] 26 mg/dL High 7-25 [facility] Comment on above: Performed By: #### 3 0965 #### [facility] [address] [place] [address], [facility] CT CHEST WO CONTRASTon 03-20 CT CHEST WO CONTRAST [facility] Department of Radiology [address] [place] [id number] Patient Name: THIAGO KRISHNAN : 1950 Sex: F Age: Race: White Pt. Location: 77 Patient Status: D Ordered Date: 03/14/2021 9:10:00 AM Completed Date: 03/20/2021 12:38 PM Requesting Provider: CHELE SANCHEZ Attending Provider: TANA BARNETT Report Copy To: KALLIE CHASE Signs & Symptoms: I34.0 Nonrheumatic mitral (valve) insufficiency I10 History: Radha time ok per lee in ct Comments: for surgery on 03/22/2021 , Patient Age: 70 years old Exam: CT CHEST WO CONTRAST CT CHEST WO CONTRAST 03/20/2021 12:38 PM CLINICAL INDICATIONS: I34.0 Nonrheumatic mitral (valve) insufficiency I10 TECHNOLOGIST COMMENTS: pre op for heart murmur QUESTIONS PER RADIOLOGIST: for surgery on 03/22/2021 , Patient Age: 70 years old PROTOCOL: Axial CT images of the chest were obtained without IV contrast. TECHNIQUE: Multidetector CT axial slices of the chest were obtained without IV contrast. Multiplanar reformats were performed and viewed on a separate workstation and reviewed to further define anatomy and possible pathology. All CT scans at this facility use dose modulation, iterative reconstruction, and/or weight based dosing when appropriate to reduce radiation dose to as low as reasonably achievable. COMPARISON: None.. FINDINGS: Lower neck: Thyroid gland within normal limits, no supraclavicle adenopathy. Vessels: Pulmonary arteries appeared grossly unremarkable considering lack of IV contrast. Mild atherosclerotic changes in the aorta. and coronary arteries. Mediastinum and Zuri: Calcified right hilar granulomatous lymph nodes Heart: Mild cardiomegaly No pericardial effusion. Airways: Within normal limits Lungs: Small calcified 3 mm granuloma in the left lung apex in axial image 69. 9 mm calcified internal and the superior segment of the right lower lobe in axial image 191. Linear scars are seen in the lung bases bilaterally. No focal consolidation. Pleura: Within normal limits. Chest Wall: Within normal limits. Upper Abdomen: Multiple small calcifications in the spleen likely small calcified granulomas. Mild vascular constipation in the abdominal aorta. Otherwise, remaining visualized abdominal viscera appeared unremarkable. Bones: Minimal spurring in the thoracic spine suggesting minimal spondylosis. IMPRESSION: Calcified small lung granulomas and calcified right hilar granulomatous lymph nodes as well as small calcified granulomas in the spleen. Mild cardiomegaly. Mild vascular calcifications. Otherwise, unremarkable noncontrast chest CT examination. Electronically signed: Omkar Crowder. Transcribed by: [email or web address], User Resident: Electronically Signed by: OMKAR CROWDER @ 03/21/2021 01:39 PM Normal [facility] Comment on above: Order Comment: for viola lemon on 03/22/2021 , Patient Age: 70 years old HEMOGLOBIN A1Con 03-20-2021 Glucose [Moles/Vol] 111 mmol/L Normal The [facility] Comment on above: Performed By: #### 3 0965 #### [facility] [address] HbA1c (Bld) [Mass fraction] 5.5 % Normal 4.0-6.0 [facility] Comment on above: Performed By: #### 3 0965 #### [facility] [address] PROTHROMBIN TIMEon 1 INR Coag (PPP) [Relative time] 0.96 {INR} Normal 0.91-1.16 [facility] Comment on above: Result Comment: ACCC P RECOMMENDED INR FOR WARFARIN THERAPY ------- CONDITION INR PROPHYLAXIS OF VENOUS THROMBOSIS 2-3 (HIGH-RISK SURGERY) TREATMENT OF VENOUS THROMBOSIS 2-3 TREATMENT OF PULMONARY EMBOLISM 2-3 PREVENTION OF SYSTEMIC EMBOLISM: 2-3 ACUTE MYOCARDIAL INFARCTION TISSUE HEART VALVES VALVULAR HEART DISEASE ATRIAL FIBRILLATION RECURRENT SYSTEMIC EMBOLISM MECHANICAL HEART VALVE 2.5-3.5 FROM: ORAL ANTICOAGULANTS. MECHANISM OF ACTION, CLINICAL EFFECTIVENESS, AND OPTIMAL THERAPEUTIC RANGE. CHEST 1995;108:231S-246S. Performed By: #### 8 [id number] #### [facility] [address] PT Coag (PPP) [Time] 12.8 s Normal 12.3-14.8 [facility] Comment on above: Result Comment: ALL RESULTS MUST BE INTERPRETED WITH RESPECT TO BLOOD DRAWING ARTIFACT OR DILUTION ERROR OF ANTICOAGULANT AT THE TIME OF SAMPLING. Performed By: #### 8 [id number] #### [facility] [address] [facility]. [address] TYPE AND CROSSMATCHon 2020 ABO INTERPRETATION A Normal [facility] Comment on above: Performed By: #### 3 0738 #### [facility] [address] [place] [address], [facility] RH INTERPRETATION Positive Normal The [facility] Comment on above: Performed By: #### 3 0738 #### [facility] [address] [facility] [address] URINALYSIS REFLEXon 03-20-20 21 Appearance (U) CLEAR Normal CLEAR The [facility] Comment on above: Performed By: #### 3 0965 #### [facility] [address] [place] [address], [facility] Bilirubin Ql (U) Negative Normal NEGATIVE [facility] Comment on above: Performed By: #### 3 0965 #### [facility] [address] [place] [address], [facility] Color (U) YELLOW Normal YELLOW [facility] Comment on above: Performed By: #### 3 0965 #### [facility] [address] [place] [address], [facility] EPIS NONE SEEN Normal FEW,OCC,NON E SEEN [facility] Comment on above: Performed By: #### 3 0965 #### [facility] [address] [place] [address], [place] Glucose Ql (U) Negative Normal NEGATIVE The [facility] Comment on above: Performed By: #### 3 0965 #### [facility] [address] [place] [address], [facility] Hemoglobin Ql (U) Negative Normal NEGATIVE The [facility] Comment on above: Performed By: #### 3 0965 #### [facility] [address] [place] [address], [facility] KETONE Negative Normal NEGATIVE [facility] Comment on above: Performed By: #### 3 0965 #### [facility] [address] [place] [address], [place] LEUK RAHUL Negative Normal NEGATIVE [facility] Comment on above: Performed By: #### 3 0965 #### [facility] [address] [place] [address], [place] Nitrite Ql (U) Negative Normal NEGATIVE The [facility] Comment on above: Performed By: #### 3 0965 #### [facility] [address] [place] [address], [place] pH (U) 7.0 [pH] Normal 5.0-8.0 [facility] Comment on above: Performed By: #### 3 0965 #### [facility] [address] [place] [address], [place] Protein Ql (U) Negative Normal NEGATIVE The [facility] Comment on above: Performed By: #### 3 0965 #### [facility] [address] [facility]. [address] RBC 0-2 Abnormal NONE SEEN [facility] Comment on above: Performed By: #### 3 0965 #### [facility] [address] [facility] [place] [address], [facility] SPEC GRAV 1.020 Normal 1.015-1.020 [facility] Comment on above: Performed By: #### 3 0965 #### [facility] [address] [facility] [place] [address], [facility] WBC UA 0-2 Abnormal NONE SEEN [facility] Comment on above: Performed By: #### 3 0965 #### [facility] [address] Cardiovascular Lab Reporton 03-08-2021 Cardiovascular Lab Report [facility] Patient Name: Ramandeep Thiago [facility] MR #: [id number] Physician: Balta Bernal, Department of M.D. Medicine Service Date: 03/08/2021 Division of Birthdate: 1950 Cardiology Room #: Adult Cardiovascular Services [place] [address] Cardiovascular Laboratory Report FINAL IMPRESSIONS: 1. Gswp-pb-lsxjepkt coronary artery disease. 2. Severe mitral regurgitation by transesophageal echocardiography. 3. Normal right-sided heart pressures and normal pulmonary capillary wedge pressure. 4. Normal cardiac output/cardiac index. 5. Ibmp-fx-wanumnqx systemic hypertension. 6. Peripheral arterial disease evidenced angiographically. RECOMMENDATIONS: 1. Will consult Cardiothoracic Surgery for potential mitral valve repair versus replacement. 2. Aggressive cardiovascular risk factor modification. 3. Optimization of medical management; aspirin, high intensity statin therapy, a beta estevan, and angiotensin-convertin g enzyme inhibitor are indicated. 4. Further investigations and management for peripheral arterial disease as clinically appropriate. 5. Follow up with Dr. Bernal in the next 1 to 2 months. 6. Follow up with Dr. Kallie Chase as scheduled. PROCEDURES: Ultrasound-guided access to the right common femoral vein and artery, limited femoral angiography, right heart catheterization, bilateral selective coronary angiography, failed MynxGrip closure device deployment. METHODS: After risks, benefits, and alternatives were explained, written informed consent was obtained. The patient was prepped and draped in usual sterile fashion over the right groin. Using 1% lidocaine solution, local infiltration anesthesia was achieved. Using a modified Seldinger technique and a micropuncture kit and under ultrasound guidance access to the right common femoral vein and artery was obtained. A 6-Hebrew x 11 cm sheath was placed in each. Angiography via the inner cannula of the micropuncture kit was performed prior to upsizing the arterial sheath. A Jurado catheter was used for right heart catheterization measuring pressures in the right atrium, right ventricle, pulmonary artery, and pulmonary capillary wedge positions. Oxygen saturations were obtained and cardiac output/cardiac index was calculated using the modified Arlene principle. The Jurado catheter was removed. Bilateral selective coronary angiography was performed using JL4 and JR4 catheters. After reviewing the images, it was elected to conclude the procedure. A 6-Hebrew MynxGrip closure device was deployed; however, this failed. Manual pressure was held for hemostasis. Overall the patient tolerated the procedure well. There were no overt complications. She was to be transferred to the holding area in stable condition. FINDINGS: Hemodynamics. AO 127/73 (91). RA 5. RV 29/2. PA 29/10 (16). PCWP 10. TPG 6. Cardiac output 4.42/cardiac index 2.92. AO sat 94%/PA sat 68%. CORONARY ARTERIES: Left main coronary artery. This arises from the left coronary cusp. It bifurcates into the left anterior descending and left circumflex coronary arteries. It is free of significant stenosis. There is calcific plaque. Left anterior descending coronary artery: This shows a long segment 40% to 50% heavily calcified proximal stenosis. There is a 30% mid vessel stenosis and diffuse tapering from mid to distal. Left circumflex coronary artery: This shows a 40% to 50% mid vessel stenosis prior to bifurcation with a large branching second obtuse marginal. Right coronary artery: This is a dominant vessel giving rise to the posterior descending and posterolateral branches. It shows 20% to 30% stenosis in the proximal mid and distal portions. The posterior circulation shows mild diffuse plaque. Limited femoral angiography: shows calcific plaque and anatomy suitable for closure device. There is a 50% calcific stenosis at the ostium of the profunda femoral artery. INDICATIONS: Severe mitral regurgitation. Electronically Signed by: Balta Benral M.D. 03/15/2021 09:24 A Balta Bernal M.D. Date Dict: 03/08/2021/11:49 A/Balta Bernal M.D. Date Trans: 03/08/2021 02:45 P/mmo [id number] cc: Balta Bernal M.D. [address] [place] [address] Vital Signs Date Time Vital Sign Value Performing Clinician Facility 12-17-2023 09:06-0400 Body height 162.56 cm [facility] 12-17-2023 09:06-0400 Body mass index (BMI) [Ratio] 18.4 kg/m2 [facility] 12-17-2023 09:06-0400 Body weight 48.76 kg [facility] 12-17-2023 09:06-0400 Diastolic blood pressure 67 mm[Hg] [facility] 12-17-2023 09:06-0400 Heart rate 69 /min [facility] 12-17-2023 09:06-0400 Systolic blood pressure 102 mm[Hg] [facility] 10-03-2023 12:55-0500 Body height 162.56 cm Jennifer Mccarthy Other [facility] 10-03-2023 12:55-0500 Body mass index (BMI) [Ratio] 18.54 kg/m2 Jennifer Mccarthy Other [facility] Other 10-03-2023 12:55-0500 Body temperature 97.1 [degF] Jennifer Mccrathy Other [facility] Other 10-03-2023 12:55-0500 Body weight 48.99 kg Jennifer Mccarthy Other [facility] Other 10-03-2023 12:55-0500 Body weight 48.98 kg [facility] 10-03-2023 12:55-0500 Diastolic blood pressure 90 mm[Hg] Jennifer Mccarthy Other [facility] 10-03-2023 12:55-0500 SaO2% (BldA) [Mass fraction] 91 % Jennifer Mccarthy Other [facility] Other 10-03-2023 12:55-0500 Systolic blood pressure 120 mm[Hg] Jennifer Mccarthy Other [facility] 05-22-2023 09:00-0400 Body height 162.56 cm Kallie Chase Other [facility] Other 05-22-2023 09:00-0400 Body mass index (BMI) [Ratio] 18.19 kg/m2 Kallie Chase Other [facility] Other 05-22-2023 09:00-0400 Body weight 48.08 kg Kallie Chase Other [facility] Other 05-22-2023 09:00-0400 Diastolic blood pressure 64 mm[Hg] Kallie Chase Other [facility] Other 05-22-2023 09:00-0400 Systolic blood pressure 117 mm[Hg] Kallie Chase Other [facility] Other 05-14-2023 08:30-0400 Body height 162.56 cm Kallie Chase Other [facility] Other 05-14-2023 08:30-0400 Body mass index (BMI) [Ratio] 18.88 kg/m2 Kallie Chase Other [facility] Other 05-14-2023 08:30-0400 Body weight 49.9 kg Kallie Chase Other [facility] Other 05-14-2023 08:30-0400 Diastolic blood pressure 67 mm[Hg] Kallie Chase Other [facility] Other 05-14-2023 08:30-0400 SaO2% (BldA) [Mass fraction] 97 % Kallie Chase Other [facility] Other 05-14-2023 08:30-0400 Systolic blood pressure 122 mm[Hg] Kallie Chase Other [facility] Other 04-23-2023 09:00-0400 Body height 162.56 cm Kallie Chase Other [facility] Other 04-23-2023 09:00-0400 Body mass index (BMI) [Ratio] 18.54 kg/m2 Kallie Chase Other [facility] Other 04-23-2023 09:00-0400 Body weight 48.99 kg Kallie Chase Other [facility] Other 04-23-2023 09:00-0400 Diastolic blood pressure 79 mm[Hg] Kallie Chase Other [facility] Other 04-23-2023 09:00-0400 Systolic blood pressure 143 mm[Hg] Kallie Chase Other [facility] Other 01-08-2023 11:00-0400 Body height 162.56 cm Vernell Alvarez II Other [facility] Other 01-08-2023 11:00-0400 Body mass index (BMI) [Ratio] 19.05 kg/m2 Vernell Dormanle II Other [facility] Other 01-08-2023 11:00-0400 Body weight 50.35 kg Vernell Dormanle II Other [facility] Other 11-11-2022 11:45-0500 Body height 162.56 cm Kallie Chase Other [facility] Other 11-11-2022 11:45-0500 Body mass index (BMI) [Ratio] 19.05 kg/m2 Kallie Chase Other [facility] Other 11-11-2022 11:45-0500 Body weight 50.35 kg Kallie Chase Other [facility] Other 11-11-2022 11:45-0500 Diastolic blood pressure 62 mm[Hg] Kallie Chase Other [facility] Other 11-11-2022 11:45-0500 Systolic blood pressure 102 mm[Hg] Kallie Chase Other [facility] Other Encounters Encounter Date Encounter Type Care Provider Facility Start: 12-17-2023 End: 12-17-2023 ambulatory [facility] Work Phone: Start: 12-17-2023 End: 12-17-2023 Patient encounter procedure [facility] Physician [facility] Work Phone: Start: 12-15-2023 Non-patient / Non-visit [facility] Physician [facility] Work Phone: Start: 12-04-2023 Non-patient / Non-visit [facility] Physician [facility] Work Phone: Start: 11-18-2023 Chart abstracting Melody villavicencio DO Work Phone: [facility] Start: 11-18-2023 End: 11-19-2023 ambulatory MELODY BARRY Not Available Start: 11-18-2023 End: 11-18-2023 Office outpatient visit 10 minutes eMlody Barry DO Work Phone: [facility] Comment on above: Primary osteoarthrit is of right hip (Primary Dx); Status post total hip replacement, right Start: 10-16-2023 End: 10-16-2023 ambulatory DASIA Denise RICARDO Not Available Start: 10-03-2023 End: 10-03-2023 ambulatory Jennifer Mccarthy Other [facility] Other Start: 10-03-2023 Office outpatient vi sit 10 minutes Jennifer Mccarthy [facility] Start: 10-03-2023 End: 10-03-2023 Patient encounter procedure [facility] Work Phone: Start: 09-25-2023 End: 09-26-2023 ambulatory Kallie Chase Facility:[facility] Start: 09-11-2023 End: 09-11-2023 ambulatory ELISA CRUZ Not Available Start: 08-26-2023 End: 08-26-2023 ambulatory MELODY BARRY Not Available Start: 08-19-2023 End: 08-19-2023 ambulatory Joshua Phipps Facility:[facility] Start: 08-19-2023 End: 08-19-2023 ambulatory MD Kallie Chase Work Phone: [facility] Work Phone: Start: 08-19-2023 End: 08-19-2023 Patient encounter procedure MD Kallie Chase Work Phone: [facility] [address] Work Phone: Start: 08-04-2023 End: 08-04-2023 ambulatory [facility] Ambulatory Start: 06-16-2023 End: 06-16-2023 ambulatory Melody Melo [place] Facility:[facility] Start: 05-22-2023 End: 05-22-2023 ambulatory Kallie Chase Other [facility] Other Start: 05-22-2023 Encounter for other preprocedural examination Kallie Chase [facility] Start: 05-22-2023 Office outpatient vi sit 15 minutes Kallie Chase [facility] Start: 05-15-2023 End: 05-15-2023 ambulatory Kallie Chase Other [facility] Other Start: 05-15-2023 Telephone encounter Kallie Chase [facility] Start: 05-14-2023 End: 05-14-2023 ambulatory Kallie Chase Other [facility] Other Start: 05-14-2023 Office outpatient vi sit 15 minutes Kallie Chase [facility] Start: 04-25-2023 End: 04-25-2023 ambulatory [facility] Start: 04-25-2023 End: 04-25-2023 Encounter for other preprocedural examination [facility] Start: 04-23-2023 End: 04-23-2023 ambulatory Kallie Chase Other [facility] Other Start: 04-23-2023 Office outpatient vi sit 15 minutes Kallie Chase [facility] Start: 04-11-2023 End: 04-11-2023 ambulatory Kallie Chase Other [facility] Other Start: 04-11-2023 Telephone encounter Kallie Chase [facility] Start: 03-07-[address] KALLIE CHASE Facil ity:[facility] Start: 01-08-2023 Office outpatient ne w 45 minutes Vernell Alvarez II [facility] Start: 01-08-2023 End: 01-08-2023 ambulatory MD Kallie Chase Work Phone: [facility] Other Start: 01-08-2023 End: 01-08-2023 Patient encounter procedure MD Kallie Chase Work Phone: [facility] Start: 11-11-2022 End: 11-11-2022 ambulatory Kallie Chase Other [facility] Other Start: 11-11-2022 Office outpatient vi sit 15 minutes Kallie Chase [facility] Start: [address] KALLIE CHASE Facil ity:[facility] Start: 09-13-2022 End: 09-13-[address] KALLIE CHASE Facility:[facility] Start: 08-05-2022 Adult health examination Serena Chase Other [facility] Other Start: 08-05-2022 Encounter for genera l adult medical examination without abnormal findings Kallie Chase Other [facility] Other Start: 06-12-2022 End: 06-13-[address] DEJON IRBY Facility:[facility] Start: 05-23-2022 End: 05-24-[address] KALLIE CHASE Facility:[facility] Start: 05-20-2022 End: 05-21-[address] BALTA BERNAL Facility:[facility] Start: 04-24-2022 End: 04-25-[address] KALLIE CHASE Facility:[facility] Start: 08-10-2021 End: 08-10-2021 Encounter for other preprocedural examination Kallie Chase Other [facility] Other Start: 08-10-2021 End: 08-10-2021 Pre-procedure evaluation check Kallie Chase Other [facility] Other Start: 03-22-2021 End: 03-27-2021 Evaluation and management of inpatient KALLIE CHASE Facility:[facility] Start: 03-14-2021 End: 04-03-2021 ambulatory REFERRED SELF Facility:[facility] Start: 02-27-2021 End: 07-09-2021 ambulatory REFERRED SELF Facility:[facility] Start: 02-21-2021 Encounter for gynecological examination (general) (routine) with abnormal findings Kallie Chase Other [facility] Other Start: 02-21-2021 Gynecological examin ation abnormal Kallie Chase Other [facility] Other Procedures Date Procedure Procedure Detail Performing Clinician Start: 11-18-2023 Radex hip unilateral with pelvis 2-3 views Melody Barry DO Work Phone: Start: 08-04-2023 ECG 12-LEAD [facility] Start: 01-08-2023 Plain X-ray of right hip MD Kallie Chase Work Phone: Start: 03-22-2021 COMPUTER ASSISTED MS OCEDURE OF TRUNK REGION CHELE MASROOR Start: 03-22-2021 EXCISION OF MITRAL V ALVE, PERCUTANEOUS APPROACH CHELE MASROOR Start: 03-22-2021 INTRODUCE OF OTH THE RAP SUBST INTO RESP TRACT, VIA OPENING CHELE MASROOR Start: 03-22-2021 INTRODUCTION OF OTH THERAP SUBST INTO HEART, PERC APPROACH CHELE MASROOR Start: 03-22-2021 Performance of Cardi ac Output, Continuous CHELE MASROOR Start: 03-22-[address] WITH SYNTH SUB, PERC APPROACH CHELE MASROOR Start: 03-22-2021 ULTRASONOGRAPHY OF R IGHT AND LEFT HEART, TRANSESOPHAGEAL CHELE MASROOR Start: 03-20-2021 Antibody screen REFERRE D SELF Comment on above: Performed By: #### 3 0738 #### [place] [address] [place] [address], [facility] Start: 07-14-2017 Screening for malign ant neoplasm of colon Kallie Chase Other Start: 10-31-2014 Removal of suture Serena Chase Other End: 02-13-2021 Screening for malignant neoplasm of breast Kallie Salvatore Other Screening for malign ant neoplasm of skin Kallie Salvatore Other Screening for osteoporosis M frank Chase Other Plan of Treatment Date Care Activity Detail Author Start: 09-14-2024 End: 09-14-2024 Patient encounter procedure 09/14/2024 10:00 AM EST Office Visit [facility] [address] [place] [phone] Thaddeus Mcclendon, DO [address] [place] [address] [facility] Start: 06-08-2024 End: 06-08-2024 Patient encounter procedure 06/08/2024 9:15 AM EDT Office Visit [facility] [address] [place] [phone] Melody Barry, [address] [place] [address] [facility] Start: 04-15-2024 End: 04-15-2024 Patient encounter procedure 04/15/2024 1:30 PM EDT Office Visit [facility] [address] [place] [phone] Dasia Ricardo MD [address] [place] [address] [facility] Start: 12-18-2023 Patient referral [facility] Work Phone: Start: 11-18-2023 End: 11-18-2023 Patient encounter procedure 11/18/2023 11:00 AM EST Office Visit [facility] [address] [place] [address] Melody Barry, [address] [place] [address] [facility] Patient referral [facility] Work Phone: Immunizations Immunization Date Immunization Notes Care Provider Nuvia cheemagrady 01-01-2022 zoster vaccine recombinant Melody Barry DO Work Phone: [facility] 12-31-2021 zoster vaccine, live Kallie Chase Other [facility] 09-24-2021 zoster vaccine recombinant Melody Barry DO Work Phone: [facility] 09-24-2021 zoster vaccine, live Kallie Chase Other [facility] 10-22-2017 pneumococcal polysaccharide vaccine, 23 valent Melody Barry DO Work Phone: [facility] 02-12-2012 zoster vaccine, live Melody luo DO Work Phone: [facility] Healthcare Payers Date Payer Category Payer Self-pay [id number] 2021 Medicare [id number] 1959 Medicare [id number] 2. [id number] 1950 Unknown [id number] 2.16.8 40.1.006092.3.579.2.647 1950 Unknown [id number] 2.16.8 40.1.483831.3.579.2.647 1950 Unknown [id number] 2.16.8 40.1.250852.3.579.2.647 1950 Unknown [id number] 2.16.84 0.1.936875.3.579.2.593 1950 Unknown [id number] 2.16.84 0.1.768398.3.579.2.593 1950 Unknown [id number] 2.16.84 0.1.885559.3.579.2.593 1950 Unknown [id number] 2.16.84 0.1.606579.3.579.2.593 1950 Unknown [id number] 2.16.84 0.1.951373.3.579.2.593 1950 Unknown [id number] 2.16.84 0.1.984996.3.579.2.593 1950 Unknown [id number] 2.16.84 0.1.387971.3.579.2.593 1950 Unknown [id number] 2.16.8 40.1.014953.3.579.2.1244 1950 Unknown [id number] 2.16.8 40.1.307642.3.579.2.718 1950 Unknown [id number] 2.16.8 40.1.861470.3.579.2.718 1950 Unknown [id number] 2.16.84 0.1.309600.3.579.2.1259 1950 Unknown [id number] 2.16.84 0.1.423330.3.579.2.1259 1950 Unknown [id number] 2.16.84 0.1.624050.3.579.2.1259 1950 Unknown [id number] 2.16.840 .1.005556.3.579.2.1259 1950 Unknown [id number] 2.16.840 .1.952938.3.579.2.1259 Private Health Insurance MOB LGP[employer] Unknown [facility] [id number] Unknown [id number] 2.16.8 40.1.723518.3.579.2.531 Unknown [id number] 2.16.8 40.1.924196.3.579.2.531 Social History Date Type Detail Facility Unknown if ever smoked [facility] Other Start: 07-29-2023 End: 10-16-2023 Sex Assigned At [facility] [employer] Other Start: 1950 Sex Assigned At Female F [facility] Start: 02-18-2023 [facility] Start: 02-18-2023 Tobacco use and exposure Smokeless tobacco non-user [facility] Start: 10-21-2023 Alcohol intake Ex-drinker (finding) [facility] Start: 07-29-2023 End: 10-16-2023 History of Social function [facility] How often to you hav e a drink containing alcohol? Monthly or less [facility] How many standard drinks containing alcohol do you have on a typical day? 1 or 2 [facility] How often do you hav e 6 or more drinks on 1 occasion? Never [facility] Start: 1950 Sex Assigned At Not on file [facility] Clinical Notes 03-06-2021 to 12-18-2023 Melody Barry, DO - 11/18/2023 11:00 AM EST Note Date & Type Note Facility 12-18-2023 Hospital Discharg e instructions Ambulatory OrdersReferral to General Surgery Time Frame: 12/18/23, Location: [facility] Work Phone: 11-18-2023 History of Presen t illness Narrative Images from the original note were not included. HISTORY OF PRESENT ILLNESS: Thiago Krishnan is an 73 y.o. @ female. Chief complaint RT hip s/p RACHEL RT hip: 5 1/2 months s/p RT RACHEL (06/04/23). Pt presents walking unassisted. She notes her pain is worse when she wakes up in the morning and gets better as the day goes on. She describes hip as feeling sore and tight over lateral hip and inner thigh. Stiffness after riding in the car. Notes swelling in thigh and ankle. Does stretches in the morning due to stiffness when she first wakes up. Walking short distances 2 times per week at the GYM and aquatic therapy 3 times per week. Scar is well healed. She is not taking anything for pain. MEDICATION: Current Outpatient Medications on File Prior to Visit Medication Sig Dispense Refill alendronate (Fosamax) 35 MG tablet TAKE ONE TABLET BY MOUTH ONCE WEELKY alpha tocopherol (Vitamin E) 100 units capsule Take 1 capsule (100 Units) by mouth in the morning. 90 capsule 3 ASPIRIN 81 MG chewable tablet 1 (one) time each day at the same time. atorvastatin (Lipitor) 80 MG tablet 1 (one) time each day at the same time. biotin 10 MG tablet Take 4 tablets (40 mg) by mouth in the morning. 360 tablet 3 dexAMETHasone (Decadron) 2 MG tablet 1 (one) time each day at the same time. ergocalciferol (Vitamin D-2) 1.25 MG (65553 UT) capsule Take 1 capsule (1.25 mg) by mouth 1 (one) time per week. 12 capsule 3 folic acid (Folvite) 1 MG tablet Take 1 tablet (1 mg) by mouth in the morning. 90 tablet 3 Glucosamine 500 MG capsule 1 (one) time each day at the same time. Ketoprofen 10 % cream Apply 1 application topically every 8 (eight) hours. 120 g 11 L-METHYLFOLATE CALCIUM PO Take 1 tablet by mouth in the morning. W-Oetpssvqabgm-Cwfae-B12-B6 (Metanx) 3-90.314-2-35 MG capsule Take 1 capsule by mouth in the morning. 90 capsule 3 levothyroxine (Synthroid, Levoxyl) 50 MCG tablet 1 (one) time each day at the same time. magnesium oxide (Mag-Ox) 400 MG tablet Take 1 tablet (400 mg) by mouth at bedtime. 90 tablet 3 Melatonin 2.5 MG chewable tablet Chew. Misc Natural Products (YumVs Beet Root-Tart Diallo) 250-0.5 MG chewable tablet Chew. naproxen (Naprosyn) 250 MG tablet Take by mouth. omega-3 (Fish Oil) 1000 MG capsule 1 capsule 1 (one) time each day at the same time. sodium flouride (Prevident, Cavarest) 1.1 % dental gel USE DIRECTED TWICE A DAY tiZANidine (Zanaflex) 4 MG tablet TAKE ONE-HALF TO ONE TABLET BY MOUTH AT BEDTIME Turmeric (QC Tumeric Complex) 500 MG capsule 1 (one) time each day at the same time. valACYclovir (Valtrex) 1 g tablet Take 2 tablets twice a day x 1 day at first start of outbreak 4 tablet 11 zinc gluconate 50 MG tablet Take 50 mg by mouth in the morning. No current facility-administered medications on file prior to visit. MEDICAL HISTORY: Past Medical History: Diagnosis Date Carpal tunnel syndrome of left wrist Endometrial hyperplasia Fascial defect Fibromyalgia Heart murmur Melanoma (CMS/HCC) Neuralgia and neuritis, unspecified Other intervertebral disc degeneration, lumbosacral region Paresthesia Radiculopathy Spondylosis ALLERGIES: Allergies Allergen Reactions Cephalexin Other Reaction(s): weakness in legs VITALS: Visit Vitals OB Status Postmenopausal Smoking Status Never PHYSICAL EXAM: Ortho Exam RIGHT HIP STRENGTH 5/5 ROM 20 IR and 20 ER IMAGING: XR hip right 2 or 3 views Imaging Result: November 18, 2023 x-rays AP and lateral of the right hip demonstrate a Press-Fit hip replacement good position alignment without evidence of loosening fracture or failure Impression: Stable appearance of right hip replacement Kameron Barry D.O. ASSESSMENT: ICD-10-CM 1. Primary osteoarthritis of right hip M16.11 XR hip right 2 or 3 views clindamycin (Cleocin) 300 MG capsule 2. Status post total hip replacement, right Z96.641 PLAN: I discussed with the patient the general recommendation for the use of prophylactic antibiotics prior to dental work after joint replacement. I advised the patient that the use of prophylactic antibiotics for dental work is a controversial topic. I currently have recommended that prophylactic antibiotics be used for 2 years postop and I did advise the patient that the guidelines and recommendations may change on this in the future. Follow up in 6 months with xrays, any issues/concerns follow up sooner. Dr. Barry obtained history and examined the patient, I am acting as scribe for Dr. Barry/lauro Barry D.O. documented in this encounter [facility] 10-03-2023 Evaluation note Encounter Date Diagnosis Assessment Notes Sep, Sore throat (ICD-10 - J02.9) Sep, COVID (ICD-10 - U07.1) Upon evaluation patient became very chilled, noticely shakey and light headed. Patient was laid down, 1,000 mg Tylenol provided. 02 2L NC applied. O2 84%, EMS called O2 was increased to 12L NRB, continued at 84% then was increased to 15L NRB O2 maintaining at 84%. Patient denies CP, SOB throughout. EMS transferred to [place] [facility] in stable condition. [facility] Other 08-17-2023 Evaluation note* Encounter Date Diagnosis Assessment Notes Treatment Notes Treatment Clinical Notes May, Preoperative clearance (ICD-10 - Z01.818) Denies issues with surgeries in the past. She is moving forward with the hip replacement. Reviewed preop labs earlier this month. Able to proceed w surgery. [facility] Other 08-09-2023 Evaluation note* Encounter Date Diagnosis Assessment Notes Treatment Notes Treatment Clinical Notes May, Primary osteoarthritis of right hip (ICD-10 - M16.11) Discussed putting off surgery. Will obtain labs from [facility] for her information and reassurance that they are normal, but will reconsider hip replacement with Dr. Barry in future. May, Other Pt notes mild f oot pain, declines brusing, treatment, or desire for intervention on R foot pain. Oct, Hypothyroidism, unspecified (ICD-10 - E03.9) refilled rx - chronic stable condition [facility] Other 07-21-2023 NotePatient here for surgery clearance. She will be having a right RACHEL with Dr. Barry at [facility]. She denies any cardiac symptoms at this time. No recent testing. Review of Systems Musculoskeletal: Positive for arthritis, back pain and joint pain. All other systems reviewed and are negative.[facility] 04-25-2023 NoteCardiology Follow Up Progress Note Chief Complaint: periop risk stratification HPI: Thiago Krishnan is a 72 y.o. female Past medical history including mild coronary artery disease and mitral valve regurgitation status post minimally invasive mitral valve repair. She presents to cardiology clinic for perioperative restratification. Patient is planning on having hip replacement. Patient states that she has been doing well from a cardiac standpoint. Patient adamantly denies any cardiac complaints or concerns. Patient denies any chest pain or shortness of breath. Patient denies any lower extremity edema, orthopnea, or proximal nocturnal dyspnea. No near-syncope or syncope. No dizziness or lightheadedness. She states that she is active and is able to Ascend greater than 1 flight of stairs and walk greater than 2 blocks without any chest pain or shortness of breath Cardiology ROS: GENERAL: Denies fever, chills, night sweats, weight loss. HEENT: Denies changes in vision, photophobia, changes in hearing, epistaxis, oral bleeding. CARDIOVASCULAR: Denies chest pain, exertional dyspnea, orthopnea/PND, lower extremity edema, palpitations, lightheadedness/dizziness. RESPIRATORY: Denies SOB, coughing, wheezing GI: Denies abdominal pain, nausea/vomiting, heartburn, melena/hematochezia. RENAL: Denies dysuria, hematuria, flank pain. MSK: Denies muscle weakness/pain, arthralgias/joint pain. NEUROLOGIC: Denies LOC, weakness, numbness, headaches. SKIN: Denies abnormal rashes or bleeding. PSYCH: Denies significant anxiety, depression, sleep disturbances. Medications Current Outpatient Medications on File Prior to Visit Medication Sig Dispense Refill alendronate (Fosamax) 35 mg tablet Take 35 mg by mouth 1 (one) time per week. aspirin 81 mg EC tablet Take 2 tablets by mouth in the morning. baclofen (Lioresal) 10 mg tablet Take 10 mg by mouth in the morning and at bedtime. biotin 10 mg tablet Take 10 mg by mouth twice a day. ergocalciferol (Vitamin D-2) 1.25 MG (27975 Units) capsule Take 1 capsule by mouth 1 (one) time per week. folic acid (Folvite) 1 mg tablet Take 1 mg by mouth in the morning. levothyroxine (Synthroid, Levoxyl) 50 mcg tablet Take 50 mcg by mouth in the morning. magnesium oxide (Mag-Ox) 400 mg (241.3 mg magnesium) tablet Take 1 tablet by mouth in the morning. meloxicam (Mobic) 15 mg tablet Take 1 tablet by mouth in the morning. valACYclovir (Valtrex) 1 gram tablet Take 1 tablet by mouth in the morning. PRN No current facility-administered medications on file prior to visit. Allergies Cephalexin Physical Exam VITAL SIGNS: BP 113/67 (BP Location: Left arm, Patient Position: Sitting) Pulse 59 Ht 1.638 m (5' 4.5 ) Wt 49.9 kg (110 lb) SpO2 100% BMI 18.59 kg/m??? Constitutional: Well developed, Well nourished, No acute distress, Non-toxic appearance. HENT: Normocephalic, Atraumatic, Bilateral external ears have normal appearance, Nose appears normal, nares are patent. Eyes: PERRLA, EOMI, Conjunctiva normal, No discharge. Neck: Normal range of motion, No tenderness, Supple, No stridor. No cervical lymphadenopathy noted. Cardiovascular: Normal heart rate, Normal rhythm, Holosystolic murmur at cardiac apex Thorax & Lungs: Normal breath sounds, No respiratory distress, No wheezing, No chest tenderness to palpation. Abdomen: Bowel sounds normal, Soft, Nontender, No masses, No pulsatile masses. Skin: Warm, Dry, No erythema, No rash. Back: No tenderness, No CVA tenderness. Extremities: Intact distal pulses, No edema, No tenderness, No cyanosis, No clubbing. Musculoskeletal: Grossly normal strength in extremities Neurologic: Alert & oriented x 3, no gross focal neurological deficits Psychiatric: Affect normal, Judgment normal, Mood normal. Impression: -Mitral valve Regurgitation status post minimally invasive repair -Mild nonobstructive coronary artery disease, no angina -Hyperlipidemia -Perioperative risk stratification Plan: -Patient denies any cardiac complaints or concerns -No signs/symptoms of decompensated heart failure. No signs/symptoms of ACS -She is able to complete greater than 4 METS of activity without any symptoms -Given history of mitral valve repair, echocardiogram was ordered and reviewed. Valve is noted to be status postrepair with a ring with no significant stenosis or regurgitation. She has mild to moderate tricuspid regurgitation but does not appear to be volume overloaded on exam -She is moderate, nonprohibitive risk for surgery. Can proceed without additional cardiac testing at this time -Continue aspirin, high intensity statin for nonobstructive CAD -Optimize medical management -Aggressive risk factor modification -Plan of care discussed with patient. All questions were answered. Patient voices understanding and is agreeable with current plan. -Patient was educated on red flag symptoms. Strict return precautions wer (more content not included)...[facility]07-19-[facility] Evaluation note* Encounter Date Diagnosis Assessment Notes Treatment Notes Treatment Clinical Notes Apr, Autoimmune thyroiditis (ICD-10 - E06.3) Check labs w preoperative requirements. Apr, Primary osteoarthritis of right hip (ICD-10 - M16.11) No surgery date yet. Cardio clearance on 04/25. Apr, Age-related osteoporosis without current pathological fracture (ICD-10 - M81.0) Gave her copy of results to share w ortho Apr, Other Reassured her t hat mammogram is normal. [facility] Other 04-05-2023 Evaluation note* Encounter Date Diagnosis Assessment Notes Treatment Notes Treatment Clinical Notes Jan, Right hip pain (ICD-10 - M25.551) Jan, Primary osteoarthritis of right hip (ICD-10 - M16.11) Jan, Other 1. We had a kacey g discussion with the patient today concerning their right hip osteoarthritis. The radiographs do show osteoarthritis of the hip. I explained to the patient that her right hip x-rays certainly could explain the groin pain and that this pain that she has in her groin that started with the heart surgery may be coincidental because I do not feel that that pain is isolated. Think she may have some discomfort from that procedure but certainly has symptomatic right hip osteoarthritis. 2. Tylenol: Discussed taking Tylenol (acetaminophen). Recommended adjusting their dosing to 1000mg by mouth up to 3 times a day. 3. NSAIDs: Recommended continuing with her meloxicam 4. Physical therapy: Discussed formal physical therapy and home regimen. Patient preferred no PT at this time. 5. Injections: Discussed injections as a treatment option. Patient will talk to her and determine if she wants to move forward with a steroid injection. If she does, we can set her up in the office for an ultrasound-guided injection at her convenience. 6. Ultimately, the patient would like to do a right total hip arthroplasty but probably not until June. I recommended that she call in and tell us that she wants to proceed with surgery and then we order 6 screening labs in April. She should then follow-up with me in the office 2 weeks after she obtains a screening labs and then we can discuss surgery at that time. [facility] Other 02-06-2023 Evaluation note* Encounter Date Diagnosis Assessment Notes Treatment Notes Treatment Clinical Notes Nov, Foreign body of left ear, initial encounter (ICD-10 - T16.2XXA) used forceps to remove part of hearing aid from L canal Nov, Impacted cerumen, right ear (ICD-10 - H61.21) attempted to manually remove - has very hard cerumen. Recommended OTC debrox. [facility] Other 07-05-2021 NoteMR#: [id number] I [facility] Pt. Name: Thiago Krishnan Admitted: 03/22/2021 Discharged: 03/27/2021 Date of : 1950 Physician: Chele Sanchez MD DISCHARGE SUMMARY PRIMARY DIAGNOSIS: Severe mitral valve regurgitation, flail mitral valve posterior leaflet. SECONDARY DIAGNOSES: 1. Essential hypertension. 2. Hypothyroidism. 3. Blood loss anemia. 4. Osteoporosis. 5. Hyperlipidemia. SURGERY/PROCEDURE: 1. Minimally invasive video-assisted mitral valve repair with triangular resection of posterior scallop P2, #28 Physio ring annuloplasty. 2. Surgery date 03/22/2021. HOSPITAL COURSE: A 70-year-old female who was found to have a loud heart murmur on routine physical examination with her PCP. Upon further evaluation, she was found to have severe mitral valve regurgitation with flail posterior leaflet. The patient had also been experiencing a very gradual decline in her functional status over the past few years. She was admitted on the same day of surgery and underwent the above-named procedure. She tolerated the surgery well. She was taken from the operating room to the medical ICU for recovery. She was extubated per fast-track extubation protocol. She was up to the chair on postoperative day #1 and received physical and occupational therapy twice daily during her hospital stay. She progressed well during the postoperative period and followed the usual, expected postoperative course. Prior to discharge, she was tolerating a regular diet. She demonstrated good bowel and bladder function. PM and R and therapy recommendations for discharge disposition was home with home care. DISCHARGE CONDITION: Good. Stable. DISCHARGE DISPOSITION: Home with [facility]. DISCHARGE MEDICATIONS: Alendronate 35 mg once weekly, aspirin 325 mg once daily, atorvastatin 80 mg once daily, biotin oral 07826 mcg once daily, vitamin D2 1250 mcg once weekly, folic acid 1 mg once daily, Foltanx 3-35-2 mg once daily, glucosamine 500 mg once daily, levothyroxine 50 mcg once daily, magnesium oxide 400 mg once daily, MiraLAX 17 g once daily, vitamin E 400 units once daily, acetaminophen 650 mg every 6 hours p.r.n. pain, Percocet 5/325 mg once every 4 hours as needed for pain. DISCHARGE INSTRUCTIONS: Written and verbal instructions provided on care of surgical incision and chest tube wounds. Cautioned on need to follow strict sternal precautions. Education provided on signs and symptoms and fluid overload. We will follow up with the patient in the [facility] in 2 weeks for postoperative evaluation. She will be following up with the PCP in 1 month, as scheduled. Follow up with Cardiology in 2-3 weeks, as scheduled. Electronically Signed by: Chele Sanchez MD 04/12/2021 04:16 P Chele Sanchez MD I personally saw this patient on the day of the encounter, performed the suarez portion(s) of the service and participated in the management and confirm the resident's documentation. Please note there may be an additional personal documentation from me. Date Dict: 04/09/2021/04:31 P/Angel Love CNP Date Trans: 04/09/2021 05:47 P/nader [id number] History general Narrative - Reported* Type Description Date Medical History Arthritis Medical History heart murmur Surgical History Heart murmur repair 03/2021 [facility] Other 06-01-2021 History general Narrative - Reported* Type Description Date Medical History Arthritis Medical History heart murmur Surgical History Heart murmur repair 03/2021 Surgical History melanoma excision Surgical History carpal tunnel release right Surgical History hernia [facility] Other Evaluation noteNo assessment information available [facility] Work Phone: Evaluation noteNo InformationNort [employer] Other Evaluation note* Diagnosis Primary osteoarthritis of right hip- Primary Status post total hip replacement, right [facility] Diagnosis Onset Date Resolution Status Right hip pain acute Sebaceous cyst acute [facility] Work Phone: History general Narrative - Reported* Type Description Date Medical History Arthritis Medical History heart murmur Medical History Autoimmune thyroiditis Medical History Personal history of malignant me lanoma of skin Medical History Mitral valve regurgitation Medical History Thickened endometrium Medical History Mitral valve replaced Medical History Malposition of uterus Surgical History Heart murmur repair 03/2021 Surgical History melanoma excision 2018 Surgical History carpal tunnel release right Surgical History hernia Surgical History DILATION AND CURETTAGE OF UTERU S - HYSTEROSCOPY 2020 Hospitalization History SEE SURGICAL HX [facility] Other [facility] general Narrative - Reported* Type Description Date Medical History Arthritis Medical History heart murmur Medical History Autoimmune thyroiditis Medical History Personal history of malignant me lanoma of skin Medical History Mitral valve regurgitation Medical History Thickened endometrium Medical History Mitral valve replaced Medical History Malposition of uterus Surgical History Heart murmur repair 03/2021 Surgical History melanoma excision 2018 Surgical History carpal tunnel release right Surgical History hernia Surgical History DILATION AND CURETTAGE OF UTERU S - HYSTEROSCOPY 2020 Surgical History Right Hip Re[placement 05/2023 Hospitalization History SEE SURGICAL HX [facility] Other Summary Purpose Family History Relationship Condition Age at Onset Recorded Date/T daya father Unknown Not Specified Unknown Advance Directives Advance Directive Response Recorded Date/ Time Advance Directives No August 08, 2017 2:29pm Advance Directive Response Recorded Date/ Time Advance Directives No August 08, 2017 1:29pm Chief Complaint and Reason for Visit Chief Complaint Headache, Ear Pain Amb Documentation Amb Documentation Lump on Head Reason for Visit Right hip pain Sebaceous cyst Additional Source Comments INFORMATION SOURCE (unrecogn ized section and content) DATE CREATED AUTHOR 12/27/2021 [facility] DATE CREATED AUTHOR AUTHOR'S ORGANIZ ATION 03/14/2023 [facility] DATE CREATED AUTHOR AUTHOR'S ORGANIZ ATION 05/19/2023 [facility] DATE CREATED AUTHOR AUTHOR'S ORGANIZ ATION 08/05/2023 [facility] DATE CREATED AUTHOR AUTHOR'S ORGANIZ ATION 10/07/2023 [facility] DATE CREATED AUTHOR AUTHOR'S ORGANIZ ATION 11/14/2023 [facility] DATE CREATED AUTHOR AUTHOR'S ORGANIZ ATION 11/23/2023 [facility] EPIC REASON FOR VISIT (unrecogniz ed section and content) Reason Comments Follow-up Care Teams (unrecognized sec tion and content) Team Status: Active Member Role Status Dates Kallie Chase MD Primary Care Provider Active Team Status: Inactive Member Role Status Dates Kallie Chase MD Primary Care Provider Active Vernell Alvarez II, MD Attending Provider Active Team Status: Inactive Member Role Status Dates Kallie Chase MD Primary Care Provider Active Joshua Phipps MD Attending Provider Active Loader Unloader Relationship Specialty Start Date End Date Kallie Chase MD [address] [place] [address] PCP - General Family Medicine 02/24/23 Loader Unloader Relationship Specialty Start Date End Date Kallie Chase MD [address] [place] [address] PCP - General Family Medicine 02/24/23 Team Status: Inactive Member Role Status Dates Jennifer Mccarthy APRN Attending Provider Active Sta rt: October 03, 2023 End: October 03, 2023 Team Status: Active Member Role Status Dates Kallie Chase MD Primary Care Provider Active Start: December 04, 2023 TRISTA Cramer Attending Provider Active Start : December 04, 2023 Team Status: Active Member Role Status Dates Kallie Chase MD Primary Care Provider Active Start: December 15, 2023 TRISTA Cramer Attending Provider Active Start : December 15, 2023 Team Status: Inactive Member Role Status Dates Kallie Chase MD Primary Care Provide r, Attending Provider Active Start: December 17, 2023 End: December 17, 2023 Goals (unrecognized section and content) Goals may be documented in a n alternate section FOR RECORDS PERTAINING TO PATIENTS WHO ARE OR HAVE BEEN ENROLLED IN A CHEMICAL DEPENDENCY/SUBSTANCEABUSE PROGRAM, SOME INFORMATION MAY BE OMITTED. This clinical summary was aggregated from multiple sources. Caution should be exercised in using it in the provision of clinical care. This summary normalizes information from multiple sources, and as a consequence, information in this document may materially change the coding, format and clinical context of patient data. In addition, data may be omitted in some cases. CLINICAL DECISIONS SHOULD BE BASED ON THE PRIMARY CLINICAL RECORDS. [facility]. provides no warranty or guarantee of the accuracy or completeness of information in this document.
[2024-01-07 07:51] LABS: Basophils Percent Auto 0.7 % (0.2-2.0); Eosinophils Absolute Auto 0.1 10^3/uL (0.0-0.7); Eosinophils Percent Auto 2.1 % (0.9-7.0); Hematocrit 39.9 % (36.0-48.0); Hemoglobin 12.6 g/dL (12.0-16.0); Immature Granulocytes Abs Auto 0.01 10^3/uL (0.00-0.03); Immature Granulocytes Pct Auto 0.2 % (0.0-0.5); Lymphocytes Absolute Auto 2.3 10^3/uL (1.2-3.8); Mean Corpuscular HGB Conc 31.6 g/dL (29.9-35.2); Mean Corpuscular Hemoglobin 30.4 pg (26.7-34.0); Mean Corpuscular Volume 96.1 fL (81.0-99.0); Mean Platelet Volume 9.7 fL (9.5-13.5); Monocytes Absolute Auto 0.7 10^3/uL (0.3-0.8); Monocytes Percent Auto 11.6 % (1.7-12.0); Neutrophils Absolute Auto 2.6 10^3/uL (1.4-6.5); Neutrophils Percent Auto 45.4 % (43.0-75.0); Platelet Count 244 10^3/uL (150-450); Red Blood Count 4.15 10^6/uL (4.20-5.40); Red Cell Distribution Width 14.1 % (11.0-15.0); White Blood Count 5.7 10^3/uL (4.0-11.0)
[2024-01-07 07:59] LABS: Alanine Aminotransferase 41 U/L (14-59); Albumin Level 3.4 g/dL (3.4-5.0); Alkaline Phosphatase 75 U/L (46-116); Anion Gap 10.2; Aspartate Amino Transferase 22 U/L (15-37); BUN Creatinine Ratio 33.9; Bilirubin Total 0.8 mg/dL (0.2-1.0); Calcium 8.6 mg/dL (8.5-10.1); Carbon Dioxide 29.9 mmol/L (21.0-32.0); Chloride 104 mmol/L (98-107); Estimated GFR (African America >60 (>=60); Estimated GFR (Non-African Ame >60 (>=60); Globulin 3.3 g/dL; Glucose 82 mg/dL (74-106); Magnesium 2.1 mg/dL (1.8-2.4); Phosphorus 3.8 mg/dL (2.6-4.7); Potassium 4.1 mmol/L (3.5-5.1); Sodium 140 mmol/L (136-145); Total Protein 6.7 g/dL (6.4-8.2)
== END 2024-01-07 07:15 | disposition home or self-care (01) ==
LOC: LAB 07:15
PROVIDERS: PCP Family Medicine; Visit Provider Internal Medicine Rheumatology
DX: M81.0 Age-related osteoporosis without current pathological fracture (principal); E55.9 Vitamin D deficiency, unspecified; Z51.81 Encounter for therapeutic drug level monitoring
CPT/HCPCS: 36415; 80053; 83735; 84100; 85025

== ENCOUNTER 2024-04-02 13:32 | Outpatient (OUT) | payer MEDICARE, SELFPAY ==
--- NOTE | 2024-04-02 | MM_ITS ---
Patient Name: DARYL SABILLON MR#: [id number] : 1950 Exam Date: 04/02/2024 Ordering Doctor: DR Anahi Branch M.D. RADIOLOGY REPORT PROCEDURE: MM TOMOSYNTHESIS SCREENING BI COMPARISON: MG MAMM SCREEN 3D ARIANA CAD, 02/19/2021. MM TOMOSYNTHESIS SCREENING BI, 03/07/2023. INDICATIONS: Screening for malignant neoplasm Calculator Name NCI Breast Cancer Risk Assessment Tool 5 Year Breast Cancer Risk 3.50% Lifetime Breast Cancer Risk 8.40% Personal Breast Cancer No Personal Ovarian Cancer No Treatments None Family Cancers Sister with breast cancer at age 55. LOCATION: [facility] BREAST COMPOSITION: The breasts are extremely dense, which lowers the sensitivity of mammography. FINDINGS: DIAGNOSTIC CATEGORY 2--BENIGN FINDING. NO CHANGE FROM COMPARISON. Scattered benign-appearing calcifications are present. RIGHT BREAST: No significant suspicious finding. LEFT BREAST: No significant suspicious finding. RECOMMENDATIONS: ROUTINE MAMMOGRAM AND CLINICAL EVALUATION IN 12 MONTHS. PLEASE NOTE: A NORMAL MAMMOGRAM DOES NOT EXCLUDE THE POSSIBILITY OF BREAST CANCER. A CLINICALLY SUSPICIOUS PALPABLE LUMP SHOULD BE BIOPSIED. Dictated by: Brodie Epps MD on 04/02/2024 at 14:20 Approved by: Brodie Epps MD on 04/02/2024 at 14:28
== END 2024-04-02 13:33 | disposition home or self-care (01) ==
LOC: MAMMO 13:32
PROVIDERS: PCP Family Medicine; Visit Provider Family Medicine
DX: Z12.31 Encounter for screening mammogram for malignant neoplasm of breast (principal); Z80.3 Family history of malignant neoplasm of breast
CPT/HCPCS: 77063; 77067

== ENCOUNTER 2024-04-16 09:48 | Outpatient (OUT) | payer MEDICARE, SELFPAY ==
[2024-04-16 10:47] LABS: Hemoglobin 12.2 g/dL (12.0-16.0)
[2024-04-16 10:55] LABS: Estimated Average Glucose 117 mg/dL; Glycohemoglobin A1C 5.7 % (4.5-6.2)
[2024-04-16 11:49] LABS: Albumin Level 3.1 g/dL (3.4-5.0)
== END 2024-04-16 09:49 | disposition home or self-care (01) ==
LOC: LAB 09:49
PROVIDERS: PCP Family Medicine; Visit Provider Orthopaedic Surgery
DX: M81.0 Age-related osteoporosis without current pathological fracture (principal); Z79.899 Other long term (current) drug therapy
CPT/HCPCS: 36415; 80323; 82042; 82306; 83036; 85018; 87081

== ENCOUNTER 2024-07-12 23:06 | Emergency (ER) | payer MEDICARE, SELFPAY ==
[2024-07-12 23:12] VITALS: BP 154/77; PULSE 68; TEMP 36.2; O2SAT 100; BMI 18.9
--- OUTSIDE RECORDS SUMMARY | 2024-07-12 23:15 | XMS_ITS | CCD ---
Author Organization [facility] Care Team Providers Care Hr Internship Name Role Phone SELF, REFERRED Referring Unavailable MASROOR, CHELE Admitting Unavailable MASROOR, CHELE Attending Unavailable SELF, REFERRED Primary Care Unavailable KALLIE CHASE Primary Care Unavailable KALLIE CHASE Referring Unavailable MASROOR, CHELE Attending Unavailable MASROOR, CHELE Admitting Unavailable MASROOR, CHELE Surgeon Unavailable [place] Procedure Practitioner Unavailab le SELF, REFERRED Referring Unavailable ELTAHAWY, EHAB A Admitting Unavailable ELTAHAWY, EHAB A Attending Unavailable SELF, REFERRED Primary Care Unavailable Kallie Chase Unavailable Vernell Alvarez II Unavailable MD Kallie Chase Primary Care Provider [phone] MD Vernell Alvarez II Attending Provider [phone] DR KALLIE CHASE Primary Care Unavailable MISC, DR HAMMOND Admitting Unavailable MISC, DR HAMMOND Attending Unavailable DR KALLIE CHASE Primary Care Unavailable ELTAHAWY, DR RODRIGUEZ Admitting Unavailable ELTAHAWY, DR RODRIGUEZ Attending Unavailable ELTAHAWY, DR RODRIGUEZ Consulting Unavailable ELTAHAWY, DR RORDIGUEZ Admitting Unavailable DR KALLIE CHASE Primary Care Unavailable ELTAHAWY, DR RODRIGUEZ Attending Unavailable ELTAHAWY, DR RODRIGUEZ Consulting Unavailable DR KALLIE CHASE Primary Care Unavailable ANGELITO, LISA Admitting Unavailable ANGELITO, LISA Attending Unavailable ANGELITO, LISA Consulting Unavailable SALVATORE, DR KALLIE Benítez Primary Care Unavailable KARASIK ., DR BAUMANN Attending Unavailabl e KARASIK ., DR BAUMANN Consulting Unavailabl e KARASIK ., DR BAUMANN Admitting Unavailabl e CHASE, DR KALLIE Benítez Primary Care Unavailable KARASIK ., DR BAUMANN Admitting Unavailabl e JONNIE ., DR BAUMANN Attending Unavailabl e ABBLALO, DR ASHFORD Consulting Unavailable SALVATORE, DR KALLIE Benítez Primary Care Unavailable SUREKHA, DR ASHFORD Admitting Unavailable ABBLALO, DR ASHFORD Attending Unavailable RAMANDEEP, DR JACK Mercer Consulting Unavailable BRENNA BROUSSARD Attending Unavailable SANDRA MELO Attending Unavailable KALLIE CHASE Primary Care UnavailSANDRA Mae Referring Unavailable MD Kallie Chase Primary Care Provider MD Joshua Phipps Attending Provider Jennifer Mccarthy Unavailable Melody Barry Admitting Unavail able Kallie Chase Primary Care Unavailable Jhonny, Melody Melo Attending Unavail able Kallie Chase Primary Care Unavailable Avelino Pena Attending Unavailable Avelino Pena Admitting Unavailable Kallie Chase MD Primary Care Provider MD Kallie Chase Primary Care Provider MD Vernell Alvarez II Attending Provider MD Kallie Chase Primary Care Provider MD Vernell Alvarez II Attending Provider [phone] DASIA PATRICIA Attending Unavailable MELODY BARRY Referring Unavailable MELODY BARRY Attending Unavailable JHONNY, MELODY Walker Attending Unavailable DSAIA PATRICIA Attending Unavailable ALEX SANTAMARIA Attending Unavailable ELISA CRUZ Attending Unavailab le MELODY BARRY Attending Unavailable MELODY BARRY Referring Unavailable CASSANDRA Guthrie Emergency Provider DO Pedro Quintero Admit Provider DO Pedro Quintero Attending Provider [phone] Joshua Phipps Admitting Unavailable Joshua Phipps Attending Unavailable Kallie Chase Primary Care Unavailable Vernell Alvarez II Attending UnavailKallie Jones Primary Care Unavailable Vernell Alvarez II Admitting Unavailmaine e Vernell Alvarez II Attending Kallie Miller Primary Care Unavailable Vernell Alvarez II Admitting UnavailVernell Ponce II Attending Kallie Miller Primary Care Unavailable Vernell Alvarez II Admitting Shaun Barnes Attending Unavailable Pedro Quintero Admitting Unavailable Kallie Chase Primary Care Unavailable Vernell Alvarez II Admitting Kallie Miller Primary Care Unavailable Vernell Alvarez II Attending MD Shaun Barnes Attending Provider [phone] Allergies Allergy Classification Reported Allergen(s) Allergy Type Date of Onset Reaction(s) Facility Cephalosporins (antibiotic) (2 sources) Cephalosporins (Antibiotic) Drug Allergy 4 [facility] (7 sources) Cephalexin Drug Allergy 1 leg swelling [facility] (20 sources) Cephalexin; Translations: [CEPHALEXIN] Drug Allergy 7 [facility] (13 sources) Cephalosporins (Antibiotic); Translations: [Cephalosporins] Allergy to substance 4 [facility] Medications Current Medications Medication Drug Class(es) Dates Sig (Normalized) Sig (Original) acetaminophen 500 mg oral tablet (6 sources) Start: 06-23-2024 take 1000 mg by mouth every eight hours Acetaminophen Active 1000 MG PO Q8H 180 June 23, 2024 12:00am DO NOT RECONCILE UNTIL DOS:07/05/2024 MED TO BED acetaminophen 325 mg / HYDROcodone bitartrate 5 mg oral tablet (1 source) Opioid Agonist Start: 07-07-2024 take 1 tablet by mouth every six hours Hydrocodone-Acetami nophen Active 1 TAB PO Every 6 hours 14 6 July 07, 2024 alendronic acid 35 mg oral tablet (12 sources) Bisphosphonate take 1 tablet by mouth once alendronate (Fosamax) 35 MG tablet TAKE ONE TABLET BY MOUTH ONCE WEELKY 0 Active take 1 tablet by mouth once kasi y Fosamax 70 MG 1 tablet 30 minutes before the first food, beverage or medicine of the day with plain water Orally Active atorvastatin 80 mg oral tablet (16 sources) HMG-CoA Reductase Inhibitor Start: 07-05-2024 take 80 mg by mouth once daily Atorvastatin Active 80 MG PO Daily July 05, 2024 12:00am atorvastatin (Li pitor) 80 MG tablet 1 (one) time each day at the same time. 0 Active take 1 tablet by jessica th every twenty-four hours Lipitor 10 MG 1 tablet Orally Once a day Active biotin 10 mg oral tablet (20 sources) Start: 05-05-2023 End: 05-04-2024 take 4 [...] 4 tablets Orally Once a day Active calcium citrate 1500 mg / cholecalciferol 200 unt oral tablet (7 sources) Vitamin D Start: 06-21-2024 take 2 tablets by mouth once daily Calcium Citrate-Vitamin D3 (Calcium Citrate + D) 315 mg-5 mcg (200 unit) tablet Active 2 TAB PO Daily June 21, 2024 12:00am cefadroxil 500 mg oral capsule (6 sources) Cephalosporin Antibacterial Start: 06-23-2024 take 500 mg by mouth every twelve hours Cefadroxil Active 500 MG PO Q12H 14 7 June 23, 2024 12:00am DO NOT RECONCILE UNTIL DOS:07/05/2024 MED TO BED celecoxib 200 mg oral capsule (6 sources) Nonsteroidal Anti-inflammatory Drug Start: 06-23-2024 take 200 mg by mouth twice daily Celecoxib Active 200 MG PO Twice daily 60 30 June 23, 2024 12:00am DO NOT RECONCILE UNTIL DOS:07/05/2024 MED TO BED clindamycin 300 mg oral capsule (2 sources) [...] food 2 capsule 3 11/18/2023 11/18/2023 Active 1 ml denosumab 60 mg/ml prefilled syringe (8 sources) RANK Ligand Inhibitor Start: 05-14-2024 Denosumab (Prolia) 60 mg/mL syringe Active 60 MG SUBCUT EVERY 6 MONTHS May 14, 2024 12:00am dexamethasone 2 mg oral tablet (4 sources) Corticosteroid dexAMETHasone (Decadron) 2 MG tablet 1 (one) time each day at the same time. 0 Active docosahexaenoic acid 120 mg / eicosapentaenoic acid 180 mg oral capsule (4 sources) omega-3 (Fish Oi l) 1000 MG capsule 1 capsule 1 (one) time each day at the same time. 0 Active docusate sodium 50 mg / sennosides, penitentiary 8.6 mg oral tablet (6 sources) Start: 06-23-2024 take 2 tablets by mouth once daily Sennosides-Docusate Sodium (Senokot-S) 8.6-50 mg tablet Active 2 TAB PO daily June 23, 2024 12:00am DO NOT RECONCILE UNTIL DOS:07/05/2024 MED TO BED ergocalciferol 1.25 mg oral capsule (19 sources) Provitamin D2 Compound Start: 06-21-2024 take 1 capsule by mouth once daily Ergocalciferol (Vitamin D2) (Vitamin D2) 1,250 mcg (50,000 unit) capsule Active 1250 MCG PO Daily June 21, 2024 12:00am Start: 05-05-2023 End: 05-04-2024 take 1 capsule by mouth every week ergocalciferol (Vitamin D-2) 1.25 MG (64862 UT) capsule Indications: Vitamin D deficiency Take 1 capsule (1.25 mg) by mouth 1 (one) time per week. 12 capsule 3 05/05/2023 05/04/2024 Active ferrous sulfate 159 mg extended release oral tablet (7 sources) Start: 06-21-2024 take 1 tablet by mouth once daily Ferrous Sulfate, Dried (Iron) 159 mg (45 mg iron) tablet extended release Active 159 MG PO Daily June 21, 2024 12:00am folic acid 1 mg oral tablet (20 sources) Start: 08-11-2017 End: 05-04-2024 take 1 mg by mouth once daily Folic Acid Active 1 MG PO Daily August 11, 2017 1:00am Sgvm-Zmjsd-Sg2-Dha-Epa- Fish-St (Glucosamine Chondroitin Plus) 553-741-40-54 mg Capsule (15 sources) Start: 08-11-2017 take 1 capsule by mouth once daily Iopu-Ktjod-Ev7-Dha-Epa- Fish-St (Glucosamine Chondroitin Plus) 027-062-85-54 mg Capsule Active 1 CAP PO Daily August 11, 2017 12:00am Start: 08-11-2017 take 1 capsule by mouth once daily Zdny-Dgngw-Qv0-Ojp-Ccw-Uevh-St (Glucosam ine Chondroitin Plus) 779-281-38-54 mg Capsule Active 1 CAP PO Daily [...] by mouth in the morning. 0 Active B-Togjmxzyaugu-Bqlzd- B12-B6 (Metanx) 3-90.314-2-35 MG capsule (4 sources) Start: 05-05-20 End: 05-04-20 24 A-Objzashmxsra-Ztdym- B12-B6 (Metanx) 3-90.314-2-35 MG capsule Indications: Lumbosacral radiculopathy , Disturbance of skin sensation Take 1 capsule by mouth in the morning. 90 capsule 3 05/05/2023 05/04/2024 Active levothyroxine sodium 0.05 mg oral tablet (20 sources) l-Thyroxine Start: 06-23-20 take 1 tablet by mouth once daily Levothyroxine Active 0 .ROUTE .COMPLEX 90 June 23, 2024 1:35pm TAKE 1 TABLET BY MOUTH EVERY DAY Start: 08-11-2017 End: 06-23-2024 take 50 ug by mouth once daily Levothyroxine Discontin ued 50 MCG PO Daily December 15, 2023 1:12pm January 09, 2024 10:43pm take 1 tablet by jessica th once daily Levothyroxine Sodium 50 MCG TAKE ONE TABLET BY MOUTH ONCE DAILY for 90 days Active magnesium gluconate 550 mg oral tablet (9 sources) take 1 tablet by jessica th every twenty-four hours Magnesium 30 MG 1 tablet with a meal Orally Once a day Active magnesium oxide 400 mg oral tablet (11 sources) Start: 06-21-2024 take 400 mg by mouth once daily Magnesium Oxide Active 400 MG PO Daily June 21, 2024 12:00am Start: 05-05-2023 End: 05-04-2024 take 1 tablet by mouth at bedtime magnesium oxide (Mag-Ox) 400 MG tablet Indications: Lumbosacral radiculopathy Take 1 tablet (400 mg) by mouth at bedtime. 90 tablet 3 05/05/2023 05/04/2024 Active Mecobal-Levomefolat Ca-B6 Phos (Foltanx) 3-35-2 mg Tablet (15 sources) Start: 08-11-2017 take 1 tablet by [...] MG tablet Take by mouth. 0 Active [place] 3 (8 sources) [place] 3 Active [place] 3,6,9 Combination No.7 ([place] Dha) 92 mg (43 mg-22 [id number]) Tablet,Chewable (15 sources) Start: 7 take 1 tablet by mouth once daily [place] 3,6,9 Combination No.7 ([place] Dha) 92 mg (43 mg-22 [id number]) Tablet,Chewable Active 1 TAB PO Daily August 11, 2017 12:00am Start: 08-11-2017 take 1 tablet by jessica th once daily [place] 3,6,9 Combination No.7 ([place] Dha) 92 mg (43 mg-22 [id number]) Tablet,Chewable Active 1 TAB PO Daily August 11, 2017 1:00am ondansetron 4 mg oral tablet (6 sources) Serotonin-3 Receptor Antagonist Start: 06-23-2024 take 4 mg by mouth every eight hours Ondansetron Hcl Active 4 MG PO Q8H 9 June 23, 2024 12:00am DO NOT RECONCILE UNTIL DOS:07/05/2024 MED TO BED pantoprazole 20 mg delayed release oral tablet (6 sources) Proton Pump Inhibitor Start: 06-23-2024 take 1 tablet by mouth once daily Pantoprazole (Protonix) 20 mg tablet,delayed release (DR/EC) Active 20 MG PO daily 35 35 June 23, 2024 12:00am DO NOT RECONCILE UNTIL DOS:07/05/2024 MED TO BED polyethylene glycol 3350 04508 mg powder for oral solution (6 sources) Osmotic Laxative Start: 06-23-2024 Polyethylene Glycol 3350 (Miralax) 17 gram/dose powder Active 17 GM PO daily 7 7 June 23, 2024 12:00am 1 packed mixed with 8 ounces of fluid. DO NOT RECONCILE UNTIL DOS:07/05/2024 MED TO BED Red Beet Root-Sour Diallo Ext (7 sources) Start: 09-16-2024 take 1 tablet by mouth once daily Red Beet Root-Sour Diallo Ext Active 1 TAB PO Daily June 21, 2024 12:00am Start: 06-21-2024 Red Beet Root- Sour Diallo Ext Active TAB PO June 21, 2024 12:00am sodium fluoride 0.011 mg/mg oral gel (4 sources) sodium flouride (Prevident, [place]) 1.1 % dental gel USE DIRECTED TWICE A DAY 0 Active tiZANidine 4 mg oral tablet (4 sources) Central alpha-2 Adrenergic Agonist take 1 tablet by mouth at bedtime tiZANidine (Zanaflex) 4 MG tablet TAKE ONE-HALF TO ONE TABLET BY MOUTH AT BEDTIME 0 Active traMADol hydrochloride 50 mg oral tablet (6 sources) Opioid Agonist Start: 4 take 50 mg by mouth every six hours Tramadol Active 50 MG PO Q6H 40 7 June 23, 2024 12:00am DO NOT RECONCILE UNTIL DOS:07/05/2024 MED TO BED Turmeric extract (19 sources) Start: 4 take 1 mg by mouth once daily Turmeric Active 1 MG PO Daily June 21, 2024 12:00am Start: 06-21-2024 Turmeric Activ e MG PO June 21, 2024 12:00am Turmeric (QC Diane reji Complex) 500 MG [...] tablet 11 04/14/2023 Active Vit A,C And I-Kzorhl-Dbvttzit (Eye Health Plus Lutein) 1,000 unit-200 mg-60 unit-2 mg Tablet (15 sources) Start: 08-11-2017 take 1 tablet by mouth once daily Vit A,C And V-Ithxyy-Pvxyatna (Eye Health Plus Lutein) 1,000 unit-200 mg-60 unit-2 mg Tablet Active 1 TAB PO Daily August 11, 2017 12:00am Start: 08-11-2017 take 1 tablet by jessica th once daily Vit A,C And V-Avhpzj-Hmizjdyw (Eye Health Plus Lutein) 1,000 unit-200 mg-60 unit-2 mg Tablet Active 1 TAB PO Daily August 11, 2017 1:00am Vitamin E (12 sources) Start: 06-21-2024 take 45 mg by mouth once daily Vitamin E Active 45 MG PO Daily June 21, 2024 12:00am Start: 05-05-2023 End: 05-04-2024 take 1 capsule by mouth in the morning alpha tocopherol (Vitamin E) 100 units capsule Indications: Memory loss Take 1 capsule (100 Units) by mouth in the morning. 90 capsule 3 05/05/2023 05/04/2024 Active Vitamin E 1000 U NIT as directed Orally Active Vitamin E 1000 UNIT (7 sources) Vitamin E 1000 U NIT as directed Orally Active vitamin k2 0.1 mg oral capsule (8 sources) Start: 05-14-2024 take 100 ug by mouth once daily Vitamin K2 Active 100 MCG PO Daily May 14, 2024 12:00am Zinc (7 sources) Start: 06-21-2024 take 50 mg by mouth three times weekly Zinc Active 50 MG PO 3 Times a week June 21, 2024 12:00am zinc gluconate 50 mg oral tablet (4 sources) take 1 tablet by mouth in the morning zinc gluconate 50 MG tablet Take 50 mg by mouth in the morning. 0 Active Completed/Discontinued Medications Medication Drug Class(es) Dates Sig (Normalized) Sig (Original) aspirin 81 mg delayed release oral tablet (20 sources) Platelet Aggregation Inhibitor, Nonsteroidal Anti-inflammatory Drug Start: 06-23-2024 End: 07-06-2024 take 81 mg by mouth twice daily Aspirin Discontinued 81 MG PO Twice daily 70 35 June 23, 2024 12:00am July 06, 2024 6:11pm DO NOT RECONCILE UNTIL DOS:07/05/2024 MED TO BED Start: 08-11-2017 take 1 tablet by jessica th once daily Aspirin (Aspir-81) 81 mg Tablet,Delayed Release (Dr/Ec) Active 162 MG PO Daily August 11, 2017 1:00am Start: 08-11-2017 take 1 tablet by jessica th once daily Aspirin (Aspir-81) 81 mg Tablet,Delayed Release (Dr/Ec) Active 1 TAB PO Daily August 11, 2017 1:00am ASPIRIN 81 MG ch ewable tablet 1 (one) time each day at the same time. 0 Active Azithromycin (10 sources) Macrolide Antimicrobial Start: 04-02-2024 End: 05-14-2024 Azithromycin Discontinued 0 PO .COMPLEX April 02, 2024 12:00am May 14, 2024 8:41am For 250 mg dose pack: take 500 mg today (day 1), then 250 mg for 4 days (days 2-5) PO Start: 04-02-2024 Azithromycin A ctive 0 PO .COMPLEX April 02, 2024 12:00am For 250 mg dose pack: take 500 mg today (day 1), then 250 mg for 4 days (days 2-5) PO Boost Protein Shakes (8 sources) Start: 04-30-2024 End: 04-30-2024 Boost Protein Shakes Discontinued 0 PO Twice daily 112 56 April 30, 2024 12:00am April 30, 2024 9:50am 8 Fl Ounces orally twice daily; Take 4 weeks before surgery, and 4 weeks after surgery Chocolate Flavor cholecalciferol 0.125 mg oral tablet (15 sources) Vitamin D Start: 08-11-2017 End: 06-21-2024 take 1 tablet by mouth every week Cholecalciferol (Vitamin D3) (Vitamin D3) 5,000 unit Tablet Discontinued 1 TAB PO every week August 11, 2017 1:00am June 21, 2024 8:59am Food Supplemt, Lactose-Reduced (Boost High Protein) 0.08 gram- 1.1 kcal/mL liquid (8 sources) Start: 05-03-2024 End: 05-14-2024 Food Supplemt, Lactose-Reduced (Boost High Protein) 0.08 gram- 1.1 kcal/mL liquid Discontinued 1 EACH PO Twice daily 2844 56 May 03, 2024 12:00am May 14, 2024 8:42am Chocolate Flavor oxyCODONE hydrochloride 5 mg oral tablet (6 sources) Opioid Agonist Start: 06-23-2024 End: 07-07-2024 take 5 mg by mouth every four hours Oxycodone Discontinued 5 MG PO Q4H 40 7 June 23, 2024 July 07, 2024 2:35pm DO NOT RECONCILE UNTIL DOS:07/05/2024 MED TO BED Problems Active Problems Problem Classification Problem Date Documented Da te Episodic/Chronic Abdominal pain (8 sources) Pelvic and perineal pain; Translations: [Left lower quadrant pain] Onset: 06-12-2022 Episodic Acute bronchitis (4 sources) Acute bronchitis; Translations: [Acute bronchitis due to other specified organisms] Episodic Administrative/social admission (4 sources) Informing health gericare aide of test result; Translations: [Person consulting for explanation of examination or test findings] Episodic Cardiac dysrhythmias (6 sources) Bradycardia; Translations: [Bradycardia, unspecified] Onset: 07-06-2024 07-07-2024 Episodic Chronic obstructive pulmonary disease and bronchiectasis [...] [Traumatic arthropathy, left hip] Onset: 03-28-2016 Chronic Mycoses (14 sources) Tinea pedis; Translations: [Tinea pedis] 05-14-2024 Episodic Osteoarthritis (20 sources) Osteoarthritis of right hip joint; Translations: [Unilateral primary osteoarthritis, right hip] Onset: 2022 Chronic Osteoporosis (7 sources) Senile osteoporosis; Translations: [Age-related osteoporosis without current pathological fracture] Onset: 08-19-2023 Chronic Other aftercare (1 source) Aftercare following joint replacement surgery; Translations: [Aftercare following joint replacement surgery] Onset: 06-24-2024 Chronic Other aftercare (4 sources) History and physical examination, follow-up; Translations: [Encounter for follow-up examination after completed treatment for conditions other than malignant neoplasm] Episodic Other circulatory disease (4 sources) Elevated blood-pressure reading without diagnosis of hypertension; Translations: [Elevated blood-pressure reading, without diagnosis of hypertension] Episodic Other connective tissue disease (8 sources) History of total hip arthroplasty; Translations: [Presence of right artificial hip joint] Onset: 06-07-2023 06-09-2023 Chronic Other connective tissue disease (3 sources) Presence of left artificial hip joint; Translations: [Hip joint replacement] Onset: 07-06-2024 07-06-2024 Chronic Other connective tissue disease (3 sources) [...] 02-18-2023 02-18-2023 Chronic Other nervous system disorders (20 sources) Hip pain; Translations: [Other acute postprocedural pain] Onset: 02-18-2023 06-09-2023 Episodic Other non-traumatic joint disorders (4 sources) Pain in right hip; Translations: [Pain [...] conditions (not mental disorders or infectious disease) (20 sources) Patient encounter status; Translations: [Encounter for screening for malignant neoplasm of colon] Onset: 07-14-2017 Resolved: 02-13-2021 08-11-2017 Episodic Other skin disorders (13 sources) Sebaceous cyst of skin; Translations: [Sebaceous cyst] 12-17-2023 Episodic Other skin disorders (3 sources) Sebaceous cyst; Translations: [Sebaceous cyst] 12-17-2023 Episodic Other upper respiratory infections (20 sources) Acute maxillary sinusitis; Translations: [Acute recurrent [...] the skin and subcutaneous tissue, unspecified] Episodic Syncope (5 sources) Syncope; Translations: [Syncope and collapse] Onset: 07-06-2024 07-07-2024 Episodic Thyroid disorders (11 sources) Autoimmune thyroiditis; Translations: [Autoimmune thyroiditis] Onset: 10-18-2013 Chronic Viral infection (5 sources) Disease caused by [...] unspecified hip] Onset: 05-25-2019 02-24-2023 Episodic Other non-traumatic joint disorders (3 sources) Pain in left hip; Translations: [Pain in joint, pelvic region and thigh] Onset: 01-16-2024 01-16-2024 Episodic Other skin disorders (4 sources) Other [...] Test Name Value Interpretation Reference Range Facility US carotid doppler BIon 10-0 US carotid doppler [facility] [place] [address] Ultrasound Report Signed Patient: Thiago Sabillon MR#: [id number] 5 : 1950 Acct:[id number] Age/Sex: 73 / F ADM Date: 07/06/24 Loc: Room: [address] [place] [address] Type: DIS IN Attending Dr: Shaun Yang MD Ordering Provider: TORI Merritt Date of Service: 07/07/24 US/US carotid doppler BI: syncope Copies to: TORI Merritt MD CAROTID DUPLEX INDICATION: Syncope PROCEDURE: Color-flow duplex scanning is used to interrogate the extracranial carotid arterial system, as well as both vertebral arteries. Both carotid bifurcations show some smooth homogeneous plaque formation. The proximal right internal carotid artery shows a highest peak systolic velocity of 134 cm/s with an end-diastolic velocity of 40 cm/s . The mid internal carotid artery measures 122 cm/s peak systolic with an end diastolic velocity of 31.4 cm/s . The distal segment measures 114 cm/s peak systolic with an end diastolic velocity of 32.9 cm/s . The velocities of the right common carotid artery are 106 cm/s peak systolic and 19.9 cm/s end-diastolic and 69.3 cm/s peak systolic and 17.7 cm/s end diastolic distally. The peak systolic velocity ratio of the internal to the common carotid artery is 1.26 . The external carotid artery measures 96 cm/s peak systolic. The right vertebral artery is patent at 83.2 cm/s peak systolic with antegrade flow. The proximal left internal carotid artery shows a highest peak systolic velocity of 96.6 cm/s with an end-diastolic velocity of 29.6 cm/s . The mid internal carotid artery measures 92.7 cm/s peak systolic with an end diastolic velocity of 31 . The distal segment measures 105 cm/s peak systolic with an end diastolic velocity of 24.5 cm/s . The velocities of the left common carotid artery are 125 cm/s peak systolic and 21.2 cm/s end-diastolic and 87.3 cm/s peak systolic and 24.7 cm/s end diastolic distally. The peak systolic velocity ratio of the internal to the common carotid artery is 0.84 . The external carotid artery measures 112 cm/s peak systolic. The left vertebral artery is patent at 65.9 cm/s peak systolic with antegrade flow. US/US carotid doppler BI IMPRESSION: MILD PLAQUE FORMATION IS NOTED BILATERALLY, WITH LESS THAN 50% STENOSIS OF BOTH EXTRACRANIAL INTERNAL CAROTID ARTERY. BOTH VERTEBRAL ARTERIES ARE PATENT WITH ANTEGRADE FLOW. Impression dictated by: Aden Martínez M.D.07/08/2024 12:45 PM Dictation Location: [place] [address] Tech: Jaylyn Arriaza Transcribed By: AMANDA 07/08/24 1245 Dictated By: Aden Martínez MD 07/08/24 1244 Signed By: 07/08/24 1245 Normal [facility] Basic Metabolic Panelon Anion gap [Moles/Vol] Not performed Normal 6.0-15.0 [facility] Comment on above: Order Comment: REDRA W Performed By: #### C BC #### [address] Creatinine Clr Calc Pharmacy 54.08 Normal [facility] Comment on above: Order Comment: REDRA W Result Comment: PERF ORMED BY: [place] [address] PATHOLOGIST CATH LABORATORY TECHNICIAN KRISTINA ENNIS M.D. Performed By: #### C BC #### [address] GFR/1.73 sq M.predicted MDRD (S/P/Bld) [Vol rate/Area] mL/min/{1.73_m2} Normal [facility] Comment on above: Order Comment: REDRA W Performed By: #### C BC #### [address] Potassium Normal 3.5-5.1 [facility] Comment on above: Order Comment: REDRA W Result Comment: Spec imen hemolyzed, redraw requested Performed By: #### C BC #### [address] Basic Metabolic PanelOrdered By: Savannah Wen on 07-07-2024 Calcium [Mass/Vol] 7.6 mg/dL Low 8.6-10.3 [facility] Comment on above: Order Comment: REDRA W Performed By: #### C BC #### [facility] [address] [place] [address] [place] Chloride [Moles/Vol] 105 mmol/L Normal 98-107 [facility] [facility] Comment on above: Order Comment: REDRA W Performed By: #### C BC #### [facility] [address] [place] [address] [place] CO2 [Moles/Vol] 23.5 mmol/L Normal 21.0-31.0 [facility] Comment on above: Order Comment: REDRA W Performed By: #### C BC #### [facility] [address] Creatinine [Mass/Vol] 0.45 mg/dL Low 0.60-1.20 [facility] Comment on above: Order Comment: REDRA W Performed By: #### C BC #### [facility] [address] Glucose [Mass/Vol] 90 mg/dL Normal 70-100 [facility] Comment on above: Order Comment: REDRA W Result Comment: [place] om Glucose Reference Range is dependent on time and content of last meal. Glucose of more than 200 mg/dL in a nonstressed, ambulatory subject supports the diagnosis of Diabetes Mellitus. ADA recommended reference range Performed By: #### C BC #### [facility] [address] ADA recommended refe rence rangeRandom Glucose Reference Range is dependent on time and content of last meal. Glucose of more than 200 mg/dL in a nonstressed, ambulatory subject supports the diagnosis of Diabetes Mellitus. Sodium [Moles/Vol] 137 mmol/L Normal 136-145 [facility] Comment on above: Order Comment: REDRA W Performed By: #### C BC #### [facility] [address] Urea nitrogen [Mass/Vol] 15 mg/dL Normal 7-25 [facility] Comment on above: Order Comment: REDRA W Performed By: #### C BC #### [facility] [address] [place] [address] Bilirubin Test strip Ql (U)O rdered By: Jose Guthrie on 07-07-2024 Bilirubin Ql (U) Negative Negative [facility] Complete Blood Count Auto Di ffOrdered By: Savannah Wen on 07-07-2024 Basophils (Bld) [#/Vol] 0.0 10*3/uL Normal 0.0-0.2 [facility] Comment on above: Order Comment: REDRA W Result Comment: PERF ORMED BY: [place] [address] PATHOLOGIST CATH LABORATORY TECHNICIAN KRISTINA ENNIS M.D. Performed By: #### C BC #### [address] Basophils/100 WBC (Bld) 0.4 % Normal . [facility] Comment on above: Order Comment: REDRA W Performed By: #### C BC #### [facility] [address] [place] [address] Eosinophils (Bld) [#/Vol] 0.0 10*3/uL Normal 0.0-0.45 [facility] Comment on above: Order Comment: REDRA W Performed By: #### C BC #### [address] Eosinophils/100 WBC (Bld) 0.7 % Normal . [facility] Comment on above: Order Comment: REDRA W Performed By: #### C BC #### [address] Erythrocyte distribution width (RBC) [Ratio] 14.5 % Normal 11.9-15.3 [facility] Comment on above: Order Comment: REDRA W Performed By: #### C BC #### [address] Hematocrit (Bld) [Volume fraction] 36.2 % Normal 34.0-46.4 [facility] Comment on above: Order Comment: REDRA W Performed By: #### C BC #### [address] Hemoglobin (Bld) [Mass/Vol] 12.3 g/dL Normal 11.8-15.4 [facility] Comment on above: Order Comment: REDRA W Performed By: #### C BC #### [facility] [address] Lymphocytes (Bld) [#/Vol] 1.3 10*3/uL Normal 1.00-4.8 [facility] Comment on above: Order Comment: REDRA W Performed By: #### C BC #### [address] Lymphocytes/100 WBC (Bld) 17.9 % Normal . [facility] Comment on above: Order Comment: REDRA W Performed By: #### C BC #### [address] MCH (RBC) [Entitic mass] 32.0 pg Normal 24.7-34.3 [facility] Comment on above: Order Comment: REDRA W Performed By: #### C BC #### [address] MCV (RBC) [Entitic vol] 94.3 fL Normal 80-100 [facility] Comment on above: Order Comment: REDRA W Performed By: #### C BC #### [address] Monocytes (Bld) [#/Vol] 0.8 10*3/uL Normal 0.0-0.8 [facility] Comment on above: Order Comment: REDRA W Performed By: #### C BC #### [address] Monocytes/100 WBC (Bld) 11.5 % Normal . [facility] Comment on above: Order Comment: REDRA W Performed By: #### C BC #### [address] Neutrophils (Bld) [#/Vol] 4.9 10*3/uL Normal 1.8-7.7 [facility] Comment on above: Order Comment: REDRA W Performed By: #### C BC #### [address] Neutrophils/100 WBC (Bld) 69.5 % Normal . [facility] Comment on above: Order Comment: REDRA W Performed By: #### C BC #### [address] Platelet mean volume (Bld) [Entitic vol] 7.5 fL Normal 6.3-10.7 [facility] Comment on above: Order Comment: REDRA W Performed By: #### C BC #### [address] Platelets (Bld) [#/Vol] 198 10*3/uL Normal 150-450 [facility] Comment on above: Order Comment: REDRA W Performed By: #### C BC #### [address] RBC (Bld) [#/Vol] 3.84 10*6/uL Normal 3.60-5.00 [facility] Comment on above: Order Comment: REDRA W Performed By: #### C BC #### [address] WBC (Bld) [#/Vol] 7.1 10*3/uL Normal 3.8-11.6 [facility] Comment on above: Order Comment: REDRA W Performed By: #### C BC #### [address] Complete Blood Count Auto Di ffon 07-07-2024 Mean Corpuscular HGB Conc 33.9 g/dL Normal 32.0-35.0 [facility] Comment on above: Order Comment: REDRA W Performed By: #### C BC #### [address] NRBC% 0.0 /100{WBC} Normal 0-0.5 [facility] Comment on above: Order Comment: REDRA W Performed By: #### C BC #### [address] [place] [address] [facility] echo transthoracicon [facility] echo transthoracic [facility] [address] [place] [address] Echocardiogram Signed Patient: Thiago Sabillon MR#: [id number] 5 : 1950 Acct:[id number] Age/Sex: 73 / F ADM Date: 07/06/24 Loc: Room: [address] [place] [address] Type: ADM IN Attending Dr: Shaun Yang MD Ordering Provider: TORI Merritt Date of Service: 07/06/2410/29/2336 [facility] echo transthoracic: Syncope Copies to: TORI Merritt MD BSA: 1.6 m2 BP: 113/63 mmHg HR: 61 Reason For Study: Syncope History: Murmur, MR, MV repair, HLD Interpretation Summary Ejection Fraction = 55-60%. A variety of Doppler measurements indicate normal left ventricular diastolic function. Mild concentric left ventricular hypertrophy. Mitral valve is grossly abnormally demonstrate heavy calcification and thickening of the mitral valve leaflets with restriction of the mitral valve leaflet excursion. The peak gradient across the mitral valve is 8 mmHg. Mean gradient is 4 mmHg. With calculated mitral valve area by pressure half-time method at 1.6 cm2 consistent with moderate mitral stenosis There is trace mitral regurgitation. There is mild tricuspid regurgitation. The right ventricular systolic pressure is 30 mmHg. Right ventricular systolic pressure is normal. There is no comparison study available. Procedure/Quality: A two-dimensional transthoracic echocardiogram with color flow and Doppler was performed. The study was technically good in quality. Left Ventricle: The left ventricular size is normal. Mild concentric left ventricular hypertrophy. Ejection Fraction = 55-60%. A variety of Doppler measurements indicate normal left ventricular diastolic function. Left Atrium: The left atrium appears normal in size. The atrial septum appears normal. Right Atrium: The right atrium appears normal in size. Right Ventricle: The right ventricular size, thickness and function are normal. Aortic Valve: The aortic valve is normal in structure and function. No aortic regurgitation is present. Mitral Valve: Mitral valve is grossly abnormally demonstrate heavy calcification and thickening of the mitral valve leaflets with restriction of the mitral valve leaflet excursion. The peak gradient across the mitral valve is 8 mmHg. Mean gradient is 4 mmHg. With calculated mitral valve area by pressure half-time method at 1.6 cm2 consistent with moderate mitral stenosis. There is trace mitral regurgitation. Tricuspid Valve: The tricuspid valve is normal in structure and function. There is mild tricuspid regurgitation. The right ventricular systolic pressure is 30 mmHg. Right ventricular systolic pressure is normal. Pulmonic Valve: The pulmonic valve is normal in structure and function. Arteries: The aortic root is normal size. Pericardium/Pleura: No pericardial effusion seen. There is no pleural effusion. IVC/Hepatic Veins: The inferior vena cava is normal in size, with a normal collapsibility index. Measurements with Normals IVSd: 1.2 cm (0.7-1.1 cm)LVIDd: 4.2 cm (3.7-5.4 cm) LVPWd: 1.2 cm (0.7-1.1 cm)LVIDs: 3.0 cm (2.3-3.6 cm) LA dimension: 2.5 cm (2.3-4.0 cm)Ao root diam: 2.7 cm(2.0-3.6 cm) asc Aorta Diam: 3.0 cm(2.1-3.4cm) Doppler with Normals RVSP(TR): 29.8 mmHg (18-35mmHg) LV V1 max: 120.0 cm/sec (0.7-1.7m/s)MV E max shiva: 146.0 cm/sec(0.8-1.3m/s) MV A max shiva: 126.0 cm/sec(0.0-0.0m/s) MV E/A: 1.2 (<1.5) MMode/2D Measurements Calculations RVDd: 2.9 cm FS: 28.6 % Ao root area: LVOT diam: 2.0 cm TAPSE: 2.3 cm EDV(Teich): 5.7 cm2 LVOT area: 3.1 cm2 RV S Shiva: 78.6 ml 12.4 cm/sec ESV(Teich): 35.0 ml EF(Teich): 55.5 % __ LVLd ap4: 7.3 cm SV(MOD-sp4): LAV(MOD-sp4): LA A2 area: 17.2 cm2 EDV(MOD-sp4): 39.4 ml 59.2 ml 65.2 ml LAV(MOD-sp2): LA A4 area: 18.5 cm2 LVLs ap4: 6.5 cm 50.4 ml LA length (vol): ESV(MOD-sp4): 4.9 cm 25.8 ml LA vol: 54.9 ml EF(MOD-sp4): 60.4 % LA vol index: 34.8 ml/m2 Doppler Measurements Calculations MV dec time: MV V2 max: E/E' lat: 12.0 MV dec slope: 0.28 sec 143.0 cm/sec E/E' med: 19.4 MV max P.0 cm/sec2 9.0 mmHg MV V2 mean: 88.4 cm/sec MV mean P.0 mmHg MV V2 VTI: 60.4 cm MVA(VTI): 1.4 cm2 __ Ao V2 max: LV V1 max PG: MR max shiva: TV max P.0 mmHg 141.0 cm/sec 5.8 mmHg 153.5 cm/sec Ao max P.0 mmHgLV V1 mean PG: MR max PG: Ao mean P.0 mmHg 10.4 mmHg 4.0 mmHg LV V1 mean: Ao V2 mean: 77.6 cm/sec 90.4 cm/sec LV V1 VTI: 26.3 cm Ao V2 VTI: 29.5 cm TEJAS(I,D): 2.8 cm2 TEJAS(V,D): 2.7 cm2 __ TR max shiva: 259.0 cm/sec TR max P.8 mmHg RAP systole: 3.0 mmHg Measurements from QLAB CI (HM): ED Mass (HM): LAEF (HM): 34.0 % BSA (HM): 1.6 m2 142.0 grams 3.2 l/min/m2 __ DINESH (HM): LAVmax (HM): LAVmin (HM): 32.0 mlPat Height (HM): 31.0 ml/m2 49.0 ml 162.0 cm __ Pat Weight (HM): 54.9 kg QLAB Heart Model (more content not included)... Normal [facility] Glucose [Mass/volume] in Uri ne by Test stripOrdered By: Jose Guthrie on 07-07-2024 Glucose Test strip (U) [Mass/Vol] Normal mg/dL Normal [facility] Hemoglobin Test strip Ql (U) Ordered By: Jose Guthrie on 07-07-2024 Hemoglobin Ql (U) Negative Negative [facility] Leukocytes [#/volume] correc maryjane for nucleated erythrocytes in Blood by Automated counOrdered By: Savannah Wen on 07-07-2024 WBC corrected for nucl RBC Auto (Bld) [#/Vol] 7.1 10*3/uL 3.8-11.6 [facility] MCHC Auto (RBC) [Mass/Vol]Or dered By: Savannah Wen on 07-07-2024 MCHC (RBC) [Mass/Vol] 33.9 g/dL 32.0-35.0 [facility] Nitrite Test strip Ql (U)Ord ered By: Jose Guthrie on 07-07-2024 Nitrite Ql (U) Negative Negative [facility] No Panel InformationOrdered By: Savannah Wen on 07-07-2024 Estimated GFR (CKD-EPI) > 60.0 mL/Min [facility] Creatinine Clearance (Chem 54.08 [facility] Nucleated erythrocytes [Pres ence] in Blood by Automated countOrdered By: Savannah Wen on 07-07-2024 Nucleated RBC Auto Ql (Bld) 0.0 /100{WBC} 0-0.5 [facility] Protein Test strip (U) [Mass /Vol]Ordered By: Jose Guthrie on 07-07-2024 Protein (U) [Mass/Vol] Negative Negative [facility] Redraw PotassiumOrdered By: Pedro Quintero on 07-07-2024 Potassium [Moles/Vol] 3.9 mmol/L Normal 3.5-5.1 [facility] Comment on above: Order Comment: SPECI MEN HEMOLYZED. NOTIFIED EVELIN Result Comment: PERF ORMED BY: [place] [address] PATHOLOGIST CATH LABORATORY TECHNICIAN KRISTINA ENNIS M.D. Performed By: #### R NILDA Peralta #### [address] Serum or plasma anion gap de terminationOrdered By: Savannah Wen on 07-07-2024 Anion gap [Moles/Vol] TNP [facility] Comment on above: Test not performed Specific gravity Test strip (U) [Rel density]Ordered By: Joseshell Guthrie on 07-07-2024 Specific gravity (U) [Rel density] 1.020 1.001-1.03 0 [facility] UrinalysisOrdered By: Jose Guthrie on 07-07-2024 Appearance (U) Clear Normal Clear [facility] Comment on above: Order Comment: REDRA W Performed By: #### C BC #### [facility] [address] Color (U) Light-yellow Normal Yellow [facility] Comment on above: Order Comment: REDRA W Performed By: #### C BC #### [address] Ketones Ql (U) Negative Normal Negative [facility] Comment on above: Order Comment: REDRA W Performed By: #### C BC #### [facility] [address] Leukocyte esterase Test strip Ql (U) Negative Normal Negative [facility] Comment on above: Order Comment: REDRA W Performed By: #### C BC #### [facility] [address] [place] [address] pH (U) 6.5 [pH] Normal 5.0-9.0 [facility] Comment on above: Order Comment: REDRA W Performed By: #### C BC #### [facility] [address] [place] [address] [place] Urinalysison 07-07-2024 Bilirubin,Urine Negative Normal Negative [facility] Comment on above: Order Comment: REDRA W Performed By: #### C BC #### [address] Glucose Ql (U) Normal Normal Normal [facility] Comment on above: Order Comment: REDRA W Performed By: #### C BC #### [address] [place] [address] [place] Nitrite,Urine Negative Normal Negative [facility] Comment on above: Order Comment: REDRA W Performed By: #### C BC #### [address] Occult Blood,Urine Negative Normal Negative [facility] Comment on above: Order Comment: REDRA W Result Comment: PERF ORMED BY: [place] [address] PATHOLOGIST CATH LABORATORY TECHNICIAN KRISTINA ENNIS M.D. Performed By: #### C BC #### [address] Protein,Urine Negative Normal Negative [facility] Comment on above: Order Comment: REDRA W Performed By: #### C BC #### [address] Specificy Alvo,Urine 1.020 Normal 1.001-1.03 0 [facility] Comment on above: Order Comment: REDRA W Performed By: #### C BC #### [address] Urobilinogen,Urine Normal Normal Normal [facility] Comment on above: Order Comment: REDRA W Performed By: #### C BC #### [address] Urobilinogen Test strip (U) [Mass/Vol]Ordered By: Jose Guthrie on 07-07-2024 Urobilinogen (U) [Mass/Vol] Normal mg/dL Normal [facility] Activated partial thrombopla stin time (aPTT) in platelet poor plasma by coagulation aOrdered By: Jose Guthrie on 07-06-2024 aPTT Coag (PPP) [Time] 24.6 s Low 25.1-36.5 [facility] Comment on above: A hematocrit value g reater than 55% may lead to inaccurate results in coagulation testing. Patients having hematocrit values >55% require a special collection tube for coagulation studies. Please contact the laboratory at [phone] for redraw instructions. Alanine aminotransferase [En zymatic activity/volume] in Serum or PlasmaOrdered By: Jose Guthrie on 07-06-2024 ALT [Catalytic activity/Vol] 32 U/L Normal 7-52 [facility] Comment on above: Performed By: #### R NILDA Peralta #### [address] Albumin [Mass/volume] in Ser um or Plasma by Bromocresol green (BCG) dye binding methoOrdered By: Jose Guthrie on 07-06-2024 Albumin BCG dye [Mass/Vol] 4.3 g/dL 3.5-5.7 [facility] Alkaline phosphatase [Enzyma tic activity/volume] in Serum or PlasmaOrdered By: Jose Guthrie on 07-06-2024 ALP [Catalytic activity/Vol] 58 U/L Normal 34-104 [facility] Comment on above: Performed By: #### R NILDA Peralta #### [address] Aspartate aminotransferase [ Enzymatic activity/volume] in Serum or PlasmaOrdered By: Jose Guthrie on 07-06-2024 AST [Catalytic activity/Vol] 32 U/L Normal 13-39 [facility] Comment on above: Performed By: #### R NILDA Peralta #### [address] Automated basophil %Ordered By: Jose Guthrie on 07-06-2024 Basophils/100 WBC (Bld) 0.3 % Normal . [facility] Comment on above: Performed By: #### C BC #### [address] Automated basophil countOrde red By: Jose Guthrie on 07-06-2024 Basophils (Bld) [#/Vol] 0.0 10*3/uL Normal 0.0-0.2 [facility] Comment on above: Result Comment: PERF ORMED BY: [place] [address] PATHOLOGIST CATH LABORATORY TECHNICIAN KRISTINA ENNIS M.D. Performed By: #### C BC #### [address] Automated blood monocyte cou ntOrdered By: Jose Guthrie on 07-06-2024 Monocytes (Bld) [#/Vol] 1.3 10*3/uL High 0.0-0.8 [facility] Comment on above: Performed By: #### C BC #### [address] Automated eosinophil %Ordere d By: Jose Guthrie on 07-06-2024 Eosinophils/100 WBC (Bld) 0.4 % Normal . [facility] Comment on above: Performed By: #### C BC #### [address] Automated eosinophil countOr dered By: Jose Guthrie on 07-06-2024 Eosinophils (Bld) [#/Vol] 0.0 10*3/uL Normal 0.0-0.45 [facility] Comment on above: Performed By: #### C BC #### [address] Automated monocyte %Ordered By: Jose Guthrie on 07-06-2024 Monocytes/100 WBC (Bld) 10.1 % Normal . [facility] Comment on above: Performed By: #### C BC #### [address] Automated neutrophil %Ordere d By: Jose Guthrie on 07-06-2024 Neutrophils/100 WBC (Bld) 79.2 % Normal . [facility] Comment on above: Performed By: #### C BC #### [address] BNP ser/plasOrdered By: Cristela Guthrie on 07-06-2024 Natriuretic peptide B (Bld) [Mass/Vol] 111.0 pg/mL High 5-100 [facility] Comment on above: Result Comment: PERF ORMED BY: [place] [address] PATHOLOGIST CATH LABORATORY TECHNICIAN KRISTINA ENNIS M.D. Performed By: #### R NILDA Peralta #### [address] [place] [address] [place] Bilirubin.total [Mass/volume ] in Serum or PlasmaOrdered By: Jose Guthrie on 07-06-2024 Bilirubin [Mass/Vol] 0.7 mg/dL Normal 0.3-1.0 [facility] Comment on above: Performed By: #### R NILDA Peralta #### [facility] [address] [place] [address] CT head/brain wo conon 07-06 CT head/brain wo con [facility] [address] [place] [address] CT Scan Report Signed Patient: Thiago Sabillon MR#: [id number] 5 : 1950 Acct:[id number] Age/Sex: 73 / F ADM Date: 07/06/24 Loc: ER Room: Type: [facility] Attending Dr: Copies to: Jose Guthrie PA-C Ordering Provider: Jose Guthrie PA-C Date of Service: 07/06/24 CT/CT head/brain wo con: unresponsive Unenhanced head CT TECHNIQUE: Contiguous axial imaging of the head. The CT exam was performed using one or more the following dose reduction techniques: Automated exposure control, adjustment of the MA and/or Kv according to patient size, or use of the iterative reconstruction technique. COMPARISON: None HISTORY: Unresponsive episode lasting 30 seconds. Hip replacement yesterday VENTRICLES: Within normal limits ATROPHY: Mild diffuse atrophy BRAIN PARENCHYMA: Decreased density of the white matter is most consistent with chronic small vessel disease. HEMORRHAGE: None HERNIATION: No mass effect or herniation INFARCTION: No recent vascular distribution infarction is seen. EXTRA-AXIAL FLUID COLLECTIONS None MIDBRAIN: Unremarkable ASHLEIGH: Unremarkable MEDULLA: Unremarkable SINUSES: Unremarkable ORBITS: Grossly unremarkable MASTOIDS: Unremarkable BONY STRUCTURES Intact ADDITIONAL FINDINGS: Atherosclerosis of carotid siphons. CT/CT head/brain wo con IMPRESSION: No acute findings. Impression dictated by: Aden Avilez M.D.07/06/2024 4:19 PM Dictation Location: [place] [address] Transcribed By: [facility] 07/06/24 1619 Dictated By: Aden Avilez DO 07/06/24 1617 Signed By: 07/06/24 1619 Normal [facility] Calcium [Mass/volume] in Ser um or PlasmaOrdered By: Jose Guthrie on 07-06-2024 Calcium [Mass/Vol] 8.8 mg/dL Normal 8.6-10.3 [facility] Comment on above: Performed By: #### R NILDA Peralta #### [address] Carbon dioxide, total [Moles /volume] in Serum or PlasmaOrdered By: Jose Guthrie on 07-06-2024 CO2 [Moles/Vol] 25.6 mmol/L Normal 21.0-31.0 [facility] Comment on above: Performed By: #### R NILDA Peralta #### [address] Chloride [Moles/volume] in S moe or PlasmaOrdered By: Jose Guthrie on 07-06-2024 Chloride [Moles/Vol] 100 mmol/L Normal 98-107 [facility] Comment on above: Performed By: #### R NILDA Peralta #### [address] Complete Blood Count Auto Di ffon 07-06-2024 Mean Corpuscular HGB Conc 33.3 g/dL Normal 32.0-35.0 [facility] Comment on above: Performed By: #### C BC #### [place] [address] [place] Monocytes/100 WBC (Bld) 17.45 % Normal 0.00-20.00 [facility] Comment on above: Performed By: #### C BC #### [place] [address] [place] NRBC% 0.0 /100{WBC} Normal 0-0.5 [facility] Comment on above: Performed By: #### C BC #### [address] Comprehensive Metabolic Pane kacey 07-06-2024 Albumin [Mass/Vol] 4.3 g/dL Normal 3.5-5.7 [facility] Comment on above: Performed By: #### R NILDA K #### [facility] [address] [place] [address] [place] Creatinine Clr Calc Pharmacy 51.31 Normal [facility] Comment on above: Performed By: #### Sylvie Peralta #### [place] [address] [place] GFR/1.73 sq M.predicted MDRD (S/P/Bld) [Vol rate/Area] mL/min/{1.73_m2} Normal [facility] Comment on above: Performed By: #### Sylvie Peralta #### [address] Creatine kinase [Enzymatic a ctivity/volume] in Serum or PlasmaOrdered By: Jose Guthrie on 07-06-2024 CK [Catalytic activity/Vol] 606 U/L High 30-223 [facility] Comment on above: Performed By: #### Sylvie Peralta #### [address] Creatinine [Mass/volume] in Serum or PlasmaOrdered By: Jose Guthrie on 07-06-2024 Creatinine [Mass/Vol] 0.60 mg/dL Normal 0.60-1.20 [facility] Comment on above: Performed By: #### Sylvie Peralta #### [address] ECG 12 lead ECGon 07-06-2024 ECG 12 lead ECG [facility] [place] [address] Electrocardiograph Report Signed Patient: Thiago Sabillon MR#: [id number] 5 : 1950 Acct:[id number] Age/Sex: 73 / F ADM Date: 07/06/24 Loc: Room: [address] [place] [address] Type: ADM IN Attending Dr: Pedro Quintero DO Ordering Provider: Jose Guthrie PA-C Date of Service: 07/06/2410/29/2224 ECG/ECG 12 lead ECG: Syncope Copies to: Test Reason : Blood Pressure : 111/59 mmHG Vent. Rate : 47 BPM Atrial Rate : 47 BPM P-R Int : 208 ms QRS Dur : 78 ms QT Int : 472 ms P-R-T Axes : 80 65 69 degrees QTcB Int : 417 ms Sinus bradycardia with sinus arrhythmia Confirmed by Alistair TEJADA DO ([id number]) on 07/07/2024 2:24:58 AM Referred By: Electronically Signed By: Alistair TEJADA DO Transcribed By: MUS Signed By Alistair Tejada DO 1 224 Normal [facility] ECG 12 lead ECG [facility] [address] [place] [address] Electrocardiograph Report Signed Patient: Thiago Sabillon MR#: [id number] 5 : 1950 Acct:[id number] Age/Sex: 73 / F ADM Date: 07/06/24 Loc: Room: [address] [place] [address] Type: ADM IN Attending Dr: Pedro Quintero DO Ordering Provider: Jose Guthrie PA-C Date of Service: 07/06/2410/29/1546 ECG/ECG 12 lead ECG: Syncope Copies to: Test Reason : Blood Pressure : 133/65 mmHG Vent. Rate : 59 BPM Atrial Rate : 59 BPM P-R Int : 206 ms QRS Dur : 80 ms QT Int : 432 ms P-R-T Axes : 77 59 68 degrees QTcB Int : 427 ms Sinus bradycardia Confirmed by Joshua Chen DO ([id number]) on 07/07/2024 2:08:11 AM Referred By: Electronically Signed By: Joshua Chen DO Transcribed By: MUS Signed By Joshua Chen DO 0208 Normal [facility] Erythrocyte distribution wid th [Ratio] by Automated countOrdered By: Jose Guthrie on 07-06-2024 Erythrocyte distribution width (RBC) [Ratio] 14.5 % Normal 11.9-15.3 [facility] Comment on above: Performed By: #### C BC #### [facility] [address] [place] [address] [place] Erythrocytes [#/volume] in B lood by Automated countOrdered By: Jose Guthrie on 07-06-2024 RBC (Bld) [#/Vol] 4.42 10*6/uL Normal 3.60-5.00 [facility] Comment on above: Performed By: #### C BC #### [address] Glucose [Mass/volume] in Ser um or PlasmaOrdered By: Jose Guthrie on 07-06-2024 Glucose [Mass/Vol] 102 mg/dL High 70-100 [facility] Comment on above: ADA recommended refe rence rangeRandom Glucose Reference Range is dependent on time and content of last meal. Glucose of more than 200 mg/dL in a nonstressed, ambulatory subject supports the diagnosis of Diabetes Mellitus. Result Comment: [place] Glucose Reference Range is dependent on time and content of last meal. Glucose of more than 200 mg/dL in a nonstressed, ambulatory subject supports the diagnosis of Diabetes Mellitus. ADA recommended reference range Performed By: #### R NILDA Peralta #### [address] Hematocrit [Volume Fraction] of Blood by Automated countOrdered By: Jose Guthrie on 07-06-2024 Hematocrit (Bld) [Volume fraction] 42.3 % Normal 34.0-46.4 [facility] Comment on above: Performed By: #### C BC #### [place] [id number] [facility] Hemoglobin [Mass/volume] in BloodOrdered By: Jose Guthrie on 07-06-2024 Hemoglobin (Bld) [Mass/Vol] 14.1 g/dL Normal 11.8-15.4 [facility] Comment on above: Performed By: #### C BC #### [address] INR in Platelet poor plasma by Coagulation assayOrdered By: Jose Guthrie on 07-06-2024 INR Coag (PPP) [Relative time] 0.9 {INR} Normal [facility] Comment on above: INR Therapeutic Rang e A) Pre- and Peroperative OAT started two weeks before surgery. NOT HIP SURGERY: 1.5 - 2.5 HIP SURGERY: 2 - 3B) Primary and secondary prevention of venous THROMBOSIS: 2 - 3C) Active venous thrombosis, pulmonary embolismand prevention of recurrent venous thrombosis: 2 - 3D) Prevention of arterial thromboembolismincluding patients with mechanical heart valves: 3 - 4.5 Result Comment: INR Therapeutic Range A) Pre- and Peroperative OAT started two weeks before surgery. NOT HIP SURGERY: 1.5 - 2.5 HIP SURGERY: 2 - 3 B) Primary and secondary prevention of venous THROMBOSIS: 2 - 3 C) Active venous thrombosis, pulmonary embolism and prevention of recurrent venous thrombosis: 2 - 3 D) Prevention of arterial thromboembolism including patients with mechanical heart valves: 3 - 4.5 Performed By: #### C BC #### [address] Leukocytes [#/volume] correc maryjane for nucleated erythrocytes in Blood by Automated counOrdered By: Jose Guthrie on 07-06-2024 WBC corrected for nucl RBC Auto (Bld) [#/Vol] 12.8 10*3/uL High 3.8-11.6 [facility] Leukocytes [#/volume] in Blo od by Automated countOrdered By: Jose Guthrie on 07-06-2024 WBC (Bld) [#/Vol] 12.8 10*3/uL High 3.8-11.6 [facility] Comment on above: Performed By: #### C BC #### [place] [address] [place] Lymphocytes [#/volume] in Bl ood by Automated countOrdered By: Jose Guthrie on 07-06-2024 Lymphocytes (Bld) [#/Vol] 1.3 10*3/uL Normal 1.00-4.8 [facility] Comment on above: Performed By: #### C BC #### [facility] [address] [place] [address] [place] Lymphocytes/100 leukocytes i n Blood by Automated countOrdered By: Jose Guthrie on 07-06-2024 Lymphocytes/100 WBC (Bld) 10.0 % Normal . [facility] Comment on above: Performed By: #### C BC #### [place] [address] [place] MCH [Entitic mass] by Automa maryjane countOrdered By: Jose Guthrie on 07-06-2024 MCH (RBC) [Entitic mass] 31.8 pg Normal 24.7-34.3 [facility] Comment on above: Performed By: #### C BC #### [address] MCHC Auto (RBC) [Mass/Vol]Or dered By: Jose Guthrie on 07-06-2024 MCHC (RBC) [Mass/Vol] 33.3 g/dL 32.0-35.0 [facility] MCV [Entitic volume] by Auto mated countOrdered By: Jose Guthrie on 07-06-2024 MCV (RBC) [Entitic vol] 95.6 fL Normal 80-100 [facility] Comment on above: Performed By: #### C BC #### [address] Magnesium [Mass/volume] in S moe or PlasmaOrdered By: Jose Guthrie on 07-06-2024 Magnesium [Mass/Vol] 1.9 mg/dL Normal 1.9-2.7 [facility] Comment on above: Result Comment: PERF ORMED BY: [place] [address] PATHOLOGIST CATH LABORATORY TECHNICIAN KRISTINA ENNIS M.D. Performed By: #### R NILDA Peralta #### [address] Monocyte distribution width [Entitic volume] in Blood by AutomatedOrdered By: Jose Guthrie on 07-06-2024 Monocyte distribution width Auto (Bld) [Entitic vol] 17.45 % 0.00-20.00 [facility] Neutrophils [#/volume] in Bl ood by Automated countOrdered By: Jose Guthrie on 07-06-2024 Neutrophils (Bld) [#/Vol] 10.2 10*3/uL High 1.8-7.7 [facility] Comment on above: Performed By: #### C BC #### [address] No Panel InformationOrdered By: Jose Guthrie on 07-06-2024 Estimated GFR (CKD-EPI) > 60.0 mL/Min [facility] Creatinine Clearance (Chem 51.31 [facility] Nucleated erythrocytes [Pres ence] in Blood by Automated countOrdered By: Jose Guthrie on 07-06-2024 Nucleated RBC Auto Ql (Bld) 0.0 /100{WBC} 0-0.5 [facility] Partial Thromboplastin Timeo n 07-06-2024 aPTT Coag (Bld) [Time] 24.6 s Low 25.1-36.5 [facility] Comment on above: Result Comment: A he matocrit value greater than 55% may lead to inaccurate results in coagulation testing. Patients having hematocrit values >55% require a special collection tube for coagulation studies. Please contact the laboratory at [phone] for redraw instructions. PERFORMED BY: [place] [address] PATHOLOGIST CATH LABORATORY TECHNICIAN KRISTINA ENNIS M.D. Performed By: #### C BC #### [facility] [address] [place] [address] [place] Platelet mean volume [Entiti c volume] in Blood by Automated countOrdered By: Jose Guthrie on 07-06-2024 Platelet mean volume (Bld) [Entitic vol] 7.6 fL Normal 6.3-10.7 [facility] Comment on above: Performed By: #### C BC #### [facility] [address] [place] [address] [place] Platelets [#/volume] in Bloo d by Automated countOrdered By: Jose Guthrie on 07-06-2024 Platelets (Bld) [#/Vol] 243 10*3/uL Normal 150-450 [facility] Comment on above: Performed By: #### C BC #### [facility] [address] [place] [address] [place] Potassium [Moles/volume] in Serum or PlasmaOrdered By: Jose Guthrie on 07-06-2024 Potassium [Moles/Vol] 4.0 mmol/L Normal 3.5-5.1 [facility] Comment on above: Performed By: #### R NILDA Peralta #### [address] Protein [Mass/volume] in Ser um or PlasmaOrdered By: Jose Guthrie on 07-06-2024 Protein [Mass/Vol] 6.8 g/dL Normal 6.4-8.9 [facility] Comment on above: Performed By: #### R NILDA K #### [address] Prothrombin time (PT)Ordered By: Jose Guthrie on 07-06-2024 PT Coag (PPP) [Time] 11.0 s Normal 9.0-12.9 [facility] Comment on above: A hematocrit value g reater than 55% may lead to inaccurate results in coagulation testing. Patients having hematocrit values >55% require a special collection tube for coagulation studies. Please contact the laboratory at [phone] for redraw instructions. Result Comment: A he matocrit value greater than 55% may lead to inaccurate results in coagulation testing. Patients having hematocrit values >55% require a special collection tube for coagulation studies. Please contact the laboratory at [phone] for redraw instructions. Performed By: #### C BC #### [address] Serum globulin measurement b y calculation (mass/volume)Ordered By: Jose Guthrie on 07-06-2024 Globulin (S) [Mass/Vol] 2.5 g/dL [facility] Comment on above: Performed By: #### R NILDA K #### [address] Serum or plasma albumin/glob ulin mass ratioOrdered By: Jose Guthrie on 07-06-2024 Albumin/Globulin [Mass ratio] 1.7 {ratio} [facility] Comment on above: Performed By: #### R NILDA K #### [address] Serum or plasma anion gap de terminationOrdered By: Jose Guthrie on 07-06-2024 Anion gap [Moles/Vol] 11.4 mmol/L Normal 6.0-15.0 [facility] Comment on above: Performed By: #### Sylvie Peralta #### [facility] [address] [place] [address] Sodium [Moles/volume] in Ser um or PlasmaOrdered By: Jose Guthrie on 07-06-2024 Sodium [Moles/Vol] 133 mmol/L Low 136-145 [facility] Comment on above: Performed By: #### R NILDA Peralta #### [place] [address] [place] Troponin I High Sensitivityo n 07-06-2024 Troponin I High Sensitivity 5.1 pg/mL Normal 0.0-15.0 [facility] Comment on above: Result Comment: PERF ORMED BY: [place] [address] PATHOLOGIST CATH LABORATORY TECHNICIAN KRISTINA ENNIS M.D. Performed By: #### R NILDA Peralta #### [address] Troponin I.cardiac [Mass/vol ume] in Serum or Plasma by Detection limit <= 0.01 ng/Ordered By: Jose Guthrie on 07-06-2024 Troponin I.cardiac DL <= 0.01 ng/mL [Mass/Vol] 5.1 pg/mL 0.0-15.0 [facility] Urea nitrogen [Mass/volume] in Serum or PlasmaOrdered By: Jose Guthrie on 07-06-2024 Urea nitrogen [Mass/Vol] 28 mg/dL High 7-25 [facility] Comment on above: Performed By: #### Sylvie Peralta #### [facility] [address] [place] [address] [place] XR chest 1V portableon 07-06 XR chest 1V portable [facility] [address] [place] [address] XRay Report Signed Patient: Thiago Sabillon MR#: [id number] 5 : 1950 Acct:[id number] Age/Sex: 73 / F ADM Date: 07/06/24 Loc: ER Room: Type: [facility] ER Attending Dr: Copies to: Jose Guthrie PA-C Ordering Provider: Jose Guthrie PA-C Date of Service: 07/06/24 XR/XR chest 1V portable: Syncope Plain film chest Single view HISTORY: Hip arthroplasty yesterday. Unresponsive episode. COMPARISON: None FINDINGS: SUPPORT DEVICES: None POSTSURGICAL CHANGES: mitral valve repair changes. HEART: Cardiomegaly. PULMONARY ZURI: Within normal limits MEDIASTINUM: Atherosclerosis of the aortic arch. LUNGS AND PLEURA: No acute lung process, pleural effusion or pneumothorax identified. BONY STRUCTURES: Intact ADDITIONAL FINDINGS None XR/XR chest 1V portable IMPRESSION: No acute process. Impression dictated by: Aden Avilez M.D.07/06/2024 4:21 PM Dictation Location: [place] [address] Transcribed By: [facility] 07/06/24 162 Dictated By: Aden Avilez DO 07/06/24 162 Signed By: 07/06/24 1621 Normal [facility] ABO/Rh Retypeon 07-05-2024 ABO/RH Recheck Result Positive Normal [facility] Comment on above: Result Comment: PERF ORMED BY: [facility] [address] [facility] [place] [address] PATHOLOGIST CATH LABORATORY TECHNICIAN KRISTINA ENNIS M.D. Albumin Levelon 07-05-2024 Albumin [Mass/Vol] 3.9 g/dL Normal 3.5-5.7 [facility] Comment on above: Result Comment: PERF ORMED BY: [facility] [address] [facility] [place] [address] PATHOLOGIST CATH LABORATORY TECHNICIAN KRISTINA ENNIS M.D. Performed By: #### A ####[facility] [place] [address] [facility] Albumin [Mass/volume] in Ser um or Plasma by Bromocresol green (BCG) dye binding methoOrdered By: Vernell Alvarez on 07-05-2024 Albumin BCG dye [Mass/Vol] 3.9 g/dL 3.5-5.7 [facility] XR hip LT min 2V(w/wo pelvis )*on 07-05-2024 XR hip LT min 2V(w/wo pelvis)* [facility] [address] [place] [address] XRay Report Signed Patient: Thiago Sabillon MR#: [id number] 5 : 1950 Acct:[id number] Age/Sex: 73 / F ADM Date: 07/05/24 Loc: [place] Room: Type: [facility] Attending Dr: Vernell Alvarez II, MD Copies to: Vernell Alvarez MD Ordering Provider: Vernell Alvarez MD Date of Service: 07/05/24 XR/XR hip LT min 2V(w/wo pelvis)*: LEFT ANTERIOR HIP Fluoroscopic assessment for anterior approach LEFT hip replacement HISTORY: LEFT hip replacement 6 image was obtained. Cumulative Air Kerma in mGy: 2.49 mGy Uncomplicated LEFT hip arthroplasty XR/XR hip LT min 2V(w/wo pelvis)* IMPRESSION: Uncomplicated LEFT hip arthroplasty Impression dictated by: Aden Avilez M.D.07/05/2024 8:21 PM Dictation Location: [place] [address] Transcribed By: [facility] 07/05/242020 Dictated By: Aden Avilez DO 07/05/24 2019 Signed By: 07/05/242020 Normal [facility] Automated basophil %Ordered By: Vernell Alvarez on 06-21-2024 Basophils/100 WBC (Bld) 0.6 % Normal . [facility] Comment on above: Performed By: #### B MP, CBC #### [place] [address] [place] #### FRUC #### [facility] , Automated basophil countOrde red By: Vernell Alvarez on 06-21-2024 Basophils (Bld) [#/Vol] 0.0 10*3/uL Normal 0.0-0.2 [facility] Comment on above: Result Comment: PERF ORMED BY: [place] [address] PATHOLOGIST CATH LABORATORY TECHNICIAN KRISTINA ENNIS M.D. Performed By: #### B MP, CBC #### [facility] [address] [place] [address] [place] #### FRUC #### [facility] , Automated blood monocyte cou ntOrdered By: Vernell Alvarez on 06-21-2024 Monocytes (Bld) [#/Vol] 0.7 10*3/uL Normal 0.0-0.8 [facility] Comment on above: Performed By: #### B MP, CBC #### [place] [address] [place] #### FRUC #### [facility] , Automated eosinophil %Ordere d By: Vernell Alvarez on 06-21-2024 Eosinophils/100 WBC (Bld) 1.8 % Normal . [facility] Comment on above: Performed By: #### B MP, CBC #### [place] [address] [place] #### FRUC #### [facility] , Automated eosinophil countOr dered By: Vernell Alvarez on 06-21-2024 Eosinophils (Bld) [#/Vol] 0.1 10*3/uL Normal 0.0-0.45 [facility] Comment on above: Performed By: #### B MP, CBC #### [place] [address] [place] #### FRUC #### [facility] , Automated monocyte %Ordered By: Vernell Alvarez on 06-21-2024 Monocytes/100 WBC (Bld) 12.3 % Normal . [facility] Comment on above: Performed By: #### B MP, CBC #### [place] [address] [place] #### FRUC #### [facility] , Automated neutrophil %Ordere d By: Vernell Alvarez on 06-21-2024 Neutrophils/100 WBC (Bld) 61.3 % Normal . [facility] Comment on above: Performed By: #### B MP, CBC #### [facility] [address] [place] [address] [place] #### FRUC #### [facility] , Basic Metabolic Panelon 06-06 GFR/1.73 sq M.predicted MDRD (S/P/Bld) [Vol rate/Area] mL/min/{1.73_m2} Normal [facility] Comment on above: Performed By: #### B MP, CBC #### [facility] [address] [place] [address] [place] #### FRUC #### [facility] , Bilirubin Test strip Ql (U)O rdered By: Vernell Alvarez on 06-21-2024 Bilirubin Ql (U) Negative Negative [facility] Calcium [Mass/volume] in Ser um or PlasmaOrdered By: Vernell Alvarez on 06-21-2024 Calcium [Mass/Vol] 9.0 mg/dL Normal 8.6-10.3 [facility] Comment on above: Result Comment: PERF ORMED BY: [place] [address] PATHOLOGIST CATH LABORATORY TECHNICIAN KRISTINA ENNIS M.D. Performed By: #### B MP, CBC #### [facility] [address] [place] [address] [place] #### FRUC #### [facility] , Carbon dioxide, total [Moles /volume] in Serum or PlasmaOrdered By: Vernell Alvarez on 06-21-2024 CO2 [Moles/Vol] 31.0 mmol/L Normal 21.0-31.0 [facility] Comment on above: Performed By: #### B MP, CBC #### [facility] [address] [place] [address] [place] #### FRUC #### [facility] , Chloride [Moles/volume] in S moe or PlasmaOrdered By: Vernell Alvarez on 06-21-2024 Chloride [Moles/Vol] 106 mmol/L Normal 98-107 [facility] Comment on above: Performed By: #### B MP, CBC #### [place] [address] [place] #### FRUC #### [facility] , Color of Urine by AutoOrdere d By: Vernell Alvarez on 06-21-2024 Color (U) Colorless Normal Yellow [facility] Comment on above: Order Comment: Name Collection Type:: Clean-Voided Midstream Performed By: #### U A #### [address] Complete Blood Count Auto Di ffon 06-21-2024 Mean Corpuscular HGB Conc 33.6 g/dL Normal 32.0-35.0 [facility] Comment on above: Performed By: #### B MP, CBC #### [address] #### FRUC #### [facility] , NRBC% 0.1 /100{WBC} Normal 0-0.5 [facility] Comment on above: Performed By: #### B MP, CBC #### [place] [address] [place] #### FRUC #### [facility] , Creatinine [Mass/volume] in Serum or PlasmaOrdered By: Vernell Alvarez on 06-21-2024 Creatinine [Mass/Vol] 0.64 mg/dL Normal 0.60-1.20 [facility] Comment on above: Performed By: #### B MP, CBC #### [place] [address] [place] #### FRUC #### [facility] , ECG 12 lead ECGon 06-21-2024 ECG 12 lead ECG [facility] [address] [place] [address] Electrocardiograph Report Signed Patient: Thiago Sabillon MR#: [id number] 5 : 1950 Acct:[id number] Age/Sex: 73 / F ADM Date: 06/21/24 Loc: [place] Room: Type: [facility] Attending Dr: Vernell Alvarez II, MD Ordering Provider: Vernell Alvarez MD Date of Service: 06/21/24 ECG/ECG 12 lead ECG: preop Copies to: Test Reason : Blood Pressure : */* mmHG Vent. Rate : 47 BPM Atrial Rate : 47 BPM P-R Int : 174 ms QRS Dur : 72 ms QT Int : 466 ms P-R-T Axes : 72 30 63 degrees QTcB Int : 412 ms Sinus bradycardia Otherwise normal ECG No previous ECGs available Confirmed by MATIAS ALEXANDER [facility], RITIKA ([id number]) on 06/21/2024 8:23:22 PM Referred By: Electronically Signed By: RITIKA SALCEDO MD [facility] Transcribed By: MUS Signed By Ritika Salcedo MD, FACC 06/21/242022 Normal [facility] Erythrocyte distribution wid th [Ratio] by Automated countOrdered By: Vernell Alvarez on 06-21-2024 Erythrocyte distribution width (RBC) [Ratio] 14.5 % Normal 11.9-15.3 [facility] Comment on above: Performed By: #### B MP, CBC #### [facility] [address] [place] [address] #### FRUC #### [facility] , Erythrocytes [#/volume] in B lood by Automated countOrdered By: Vernell Alvarez on 06-21-2024 RBC (Bld) [#/Vol] 4.11 10*6/uL Normal 3.60-5.00 [facility] Comment on above: Performed By: #### B MP, CBC #### [facility] [address] [place] [address] [place] #### FRUC #### [facility] , Fructosamineon 06-21-2024 Fructosamine 219 umol/L Normal 0-285 [facility] Comment on above: Result Comment: Publ ished reference interval for apparently healthy subjects between age 20 and 60 is 205 - 285 umol/L and in a poorly controlled diabetic population is 228 - 563 umol/L with a mean of 396 umol/L. Performed at: [facility] [id number] [employer] Crosscutter: Roque Alex PhD, Phone: [phone] PERFORMED BY: [place] [address] PATHOLOGIST CATH LABORATORY TECHNICIAN KRISTINA ENNIS M.D. Performed By: #### B MP, CBC #### [place] [address] [place] #### FRUC #### [facility] , Fructosamine [Moles/volume] in Serum or PlasmaOrdered By: Vernell Alvarez on 06-21-2024 Fructosamine [Moles/Vol] 219 umol/L 0-285 [facility] Comment on above: Published reference interval for apparently healthysubjects between age 20 and 60 is 205 - 285 umol/L and in apoorly controlled diabetic population is 228 - 563 umol/Lwith a mean of 396 umol/L.Performed at: [facility] [id number] Director: Roque Alex PhD, Phone: [phone] Glucose [Mass/volume] in Ser um or PlasmaOrdered By: Vernell Alvarez on 06-21-2024 Glucose [Mass/Vol] 81 mg/dL Normal 70-100 [facility] Comment on above: ADA recommended refe rence rangeRandom Glucose Reference Range is dependent on time and content of last meal. Glucose of more than 200 mg/dL in a nonstressed, ambulatory subject supports the diagnosis of Diabetes Mellitus. Result Comment: [place] Glucose Reference Range is dependent on time and content of last meal. Glucose of more than 200 mg/dL in a nonstressed, ambulatory subject supports the diagnosis of Diabetes Mellitus. ADA recommended reference range Performed By: #### B MP, CBC #### [place] [address] [place] #### FRUC #### [facility] , Glucose [Mass/volume] in Uri ne by Test stripOrdered By: Vernell Alvarez on 06-21-2024 Glucose Test strip (U) [Mass/Vol] Normal mg/dL Normal [facility] Hematocrit [Volume Fraction] of Blood by Automated countOrdered By: Vernell Alvarez on 06-21-2024 Hematocrit (Bld) [Volume fraction] 38.8 % Normal 34.0-46.4 [facility] Comment on above: Performed By: #### B MP, CBC #### [facility] [address] [place] [address] [place] #### FRUC #### [facility] , Hemoglobin Test strip Ql (U) Ordered By: Vernell Alvarez on 06-21-2024 Hemoglobin Ql (U) Negative Negative [facility] Hemoglobin [Mass/volume] in BloodOrdered By: Vernell Alvarez on 06-21-2024 Hemoglobin (Bld) [Mass/Vol] 13.0 g/dL Normal 11.8-15.4 [facility] Comment on above: Performed By: #### B MP, CBC #### [place] [address] [place] #### FRUC #### [facility] , Ketones [Presence] in Urine by Test stripOrdered By: Vernell Alvarez on 06-21-2024 Ketones Ql (U) Negative Normal Negative [facility] Comment on above: Order Comment: Name Collection Type:: Clean-Voided Midstream Performed By: #### U A #### [address] Leukocyte esterase [Presence ] in Urine by Test stripOrdered By: Vernell Alvarez on 06-21-2024 Leukocyte esterase Test strip Ql (U) Negative Normal Negative [facility] Comment on above: Order Comment: Name Collection Type:: Clean-Voided Midstream Performed By: #### U A #### [place] [address] [place] Leukocytes [#/volume] correc maryjane for nucleated erythrocytes in Blood by Automated counOrdered By: Vernell Alvarez on 06-21-2024 WBC corrected for nucl RBC Auto (Bld) [#/Vol] 5.8 10*3/uL 3.8-11.6 [facility] Leukocytes [#/volume] in Blo od by Automated countOrdered By: Vernell Alvarez on 06-21-2024 WBC (Bld) [#/Vol] 5.8 10*3/uL Normal 3.8-11.6 [facility] Comment on above: Performed By: #### B MP, CBC #### [place] [address] [place] #### FRUC #### [facility] , Lymphocytes [#/volume] in Bl ood by Automated countOrdered By: Vernell Alvarez on 06-21-2024 Lymphocytes (Bld) [#/Vol] 1.4 10*3/uL Normal 1.00-4.8 [facility] Comment on above: Performed By: #### B MP, CBC #### [place] [address] [place] #### FRUC #### [facility] , Lymphocytes/100 leukocytes i n Blood by Automated countOrdered By: Vernell Alvarez on 06-21-2024 Lymphocytes/100 WBC (Bld) 24.0 % Normal . [facility] Comment on above: Performed By: #### B MP, CBC #### [place] [address] [place] #### FRUC #### [facility] , MCH [Entitic mass] by Automa maryjane countOrdered By: Vernell Alvarez on 06-21-2024 MCH (RBC) [Entitic mass] 31.7 pg Normal 24.7-34.3 [facility] Comment on above: Performed By: #### B MP, CBC #### [place] [address] [place] #### FRUC #### [facility] , MCHC Auto (RBC) [Mass/Vol]Or dered By: Vernell Alvarez on 06-21-2024 MCHC (RBC) [Mass/Vol] 33.6 g/dL 32.0-35.0 [facility] MCV [Entitic volume] by Auto mated countOrdered By: Vernell Alvarez on 06-21-2024 MCV (RBC) [Entitic vol] 94.5 fL Normal 80-100 [facility] Comment on above: Performed By: #### B MP, CBC #### [facility] [address] [place] [address] [place] #### FRUC #### [facility] , Neutrophils [#/volume] in Bl ood by Automated countOrdered By: Vernell Alvarez on 06-21-2024 Neutrophils (Bld) [#/Vol] 3.6 10*3/uL Normal 1.8-7.7 [facility] Comment on above: Performed By: #### B MP, CBC #### [facility] [address] [place] [address] [place] #### FRUC #### [facility] , Nitrite Test strip Ql (U)Ord ered By: Vernell Alvarez on 06-21-2024 Nitrite Ql (U) Negative Negative [facility] No Panel InformationOrdered By: Vernell Alvarez on 06-21-2024 Estimated GFR (CKD-EPI) > 60.0 mL/Min [facility] Creatinine Clearance (Chem N/A [facility] Nucleated erythrocytes [Pres ence] in Blood by Automated countOrdered By: Vernell Alvarez on 06-21-2024 Nucleated RBC Auto Ql (Bld) 0.1 /100{WBC} 0-0.5 [facility] PST Type and Screenon 2023 ABO and Rh group Nom (Bld) Blood group A Rh(D) positive Normal [facility] Comment on above: Order Comment: Date of Surgery: [id number] Result Comment: PERF ORMED BY: [place] [address] PATHOLOGIST CATH LABORATORY TECHNICIAN KRISTINA ENNIS M.D. Platelet mean volume [Entiti c volume] in Blood by Automated countOrdered By: Vernell Alvarez on 06-21-2024 Platelet mean volume (Bld) [Entitic vol] 7.6 fL Normal 6.3-10.7 [facility] Comment on above: Performed By: #### B MP, CBC #### [place] [address] [place] #### FRUC #### [facility] , Platelets [#/volume] in Bloo d by Automated countOrdered By: Vernell Alvarez on 06-21-2024 Platelets (Bld) [#/Vol] 228 10*3/uL Normal 150-450 [facility] Comment on above: Performed By: #### B MP, CBC #### [place] [address] [place] #### FRUC #### [facility] , Potassium [Moles/volume] in Serum or PlasmaOrdered By: Vernell Alvarez on 06-21-2024 Potassium [Moles/Vol] 4.6 mmol/L Normal 3.5-5.1 [facility] Comment on above: Performed By: #### B MP, CBC #### [place] [address] [place] #### FRUC #### [facility] , Protein Test strip (U) [Mass /Vol]Ordered By: Vernell Alvarez on 06-21-2024 Protein (U) [Mass/Vol] Negative Negative [facility] Serum or plasma anion gap de terminationOrdered By: Vernell Alvarez on 06-21-2024 Anion gap [Moles/Vol] 8.6 mmol/L Normal 6.0-15.0 [facility] Comment on above: Performed By: #### B MP, CBC #### [place] [address] [place] #### FRUC #### [facility] , Sodium [Moles/volume] in Ser um or PlasmaOrdered By: Vernell Alvarez on 06-21-2024 Sodium [Moles/Vol] 141 mmol/L Normal 136-145 [facility] Comment on above: Performed By: #### B MP, CBC #### [place] [address] [place] #### FRUC #### [facility] , Specific gravity Test strip (U) [Rel density]Ordered By: Vernell Alvarez on 06-21-2024 Specific gravity (U) [Rel density] 1.015 1.001-1.03 0 [facility] Urea nitrogen [Mass/volume] in Serum or PlasmaOrdered By: Vernell Alvarez on 06-21-2024 Urea nitrogen [Mass/Vol] 32 mg/dL High 7-25 [facility] Comment on above: Performed By: #### B MP, CBC #### [address] #### FRUC #### [facility] , Urinalysison 06-21-2024 Bilirubin,Urine Negative Normal Negative [facility] Comment on above: Order Comment: Name Collection Type:: Clean-Voided Midstream Performed By: #### U A #### [address] Glucose Ql (U) Normal Normal Normal [facility] Comment on above: Order Comment: Name Collection Type:: Clean-Voided Midstream Performed By: #### U A #### [place] [address] [place] Nitrite,Urine Negative Normal Negative [facility] Comment on above: Order Comment: Name Collection Type:: Clean-Voided Midstream Performed By: #### U A #### [place] [address] [place] Occult Blood,Urine Negative Normal Negative [facility] Comment on above: Order Comment: Name Collection Type:: Clean-Voided Midstream Result Comment: PERF ORMED BY: [place] [address] PATHOLOGIST CATH LABORATORY TECHNICIAN KRISTINA ENNIS M.D. Performed By: #### U A #### [facility] [address] Protein,Urine Negative Normal Negative [facility] Comment on above: Order Comment: Name Collection Type:: Clean-Voided Midstream Performed By: #### U A #### [address] Specificy Alvo,Urine 1.015 Normal 1.001-1.03 0 [facility] Comment on above: Order Comment: Name Collection Type:: Clean-Voided Midstream Performed By: #### U A #### [address] Urobilinogen,Urine Normal Normal Normal [facility] Comment on above: Order Comment: Name Collection Type:: Clean-Voided Midstream Performed By: #### U A #### [address] Urine appearanceOrdered By: Vernell Alvarez on 06-21-2024 Appearance (U) Clear Normal Clear [facility] Comment on above: Order Comment: Name Collection Type:: Clean-Voided Midstream Performed By: #### U A #### [address] Urobilinogen Test strip (U) [Mass/Vol]Ordered By: Vernell Alvarez on 06-21-2024 Urobilinogen (U) [Mass/Vol] Normal mg/dL Normal [facility] pH of Urine by Test stripOrd ered By: Vernell Alvarez on 06-21-2024 pH (U) 7.0 [pH] Normal 5.0-9.0 [facility] Comment on above: Order Comment: Name Collection Type:: Clean-Voided Midstream Performed By: #### U A #### [address] Glucose mean value [Mass/vol ume] in Blood Estimated from glycated hemoglobinon 04-16-2024 Average glucose Estimated from glycated hemoglobin (Bld) [Mass/Vol] 117 mg/dL [facility] Hemoglobin [Mass/volume] in Bloodon 04-16-2024 Hemoglobin (Bld) [Mass/Vol] 12.2 g/dL 12.0-16.0 [facility] Laboratory - Chemistry and C hemistry - challengeon 04-16-2024 Albumin [Mass/Vol] 3.1 g/dL Low 3.4-5.0 [facility] - Hematology and Cell countson 04-16-2024 HbA1c (Bld) [Mass fraction] 5.7 % 4.5-6.2 [facility] Comment on above: ADA RECOMMENDED LIMI T 4.0 - 6.0ADA THERAPEUTIC TARGET < 7.0ACTION SUGGESTED> 7.0 No Panel Informationon 04-16 Reference Lab Order Code See comment [facility] Comment on above: SEE SCANNED REPORT 25-Hydroxy Vitamin D Total 45.8 ng/mL [facility] Comment on above: <20 ng/mL Vit D defi cient20-<30 ng/mL Vit D jkipmgrmtrlt25-615 ng/mL Vit D sufficient>100 ng/mL Potential Toxicity Miscellaneous Test COMMENT . [facility] Comment on above: Test Ordered: [id number] Nicotine and Metabolite, QuantNicotine <1.0 ng/mL Reference Range: .This test was developed and its performance characteristicsdetermined by [employer]. It has not been cleared orapproved by the Food and Drug Administration.Nicotine levels greater than 2.0 are consistent with theuse of tobacco or tobacco cessation products.Cotinine <1.0 ng/mL Reference Range: .This test was developed and its performance characteristicsdetermined by [employer]. It has not been cleared orapproved by the Food and Drug Administration.Cotinine levels greater than 20.0 are consistent with theuse of tobacco or tobacco cessation products.Performed at: - [facility] [id number] Director: Felicitas Tony MD, Phone: [phone] at: [facility] [id number] Director: Roque Alex PhD, Phone: [phone] XR hip LT min 2V(w/wo pelvis )*on 01-16-2024 XR hip LT min 2V(w/wo pelvis)* [facility] [address] [place] [address] XRay Report Signed Patient: Thiago Sabillon MR#: [id number] : 1950 Acct:[id number] Age/Sex: 73 / F ADM Date: 01/16/24 [place] [facility] [place]: Type: [facility] Attending Dr: Vernell Alvarez II, MD Copies to: Vernell Alvarez MD Ordering Provider: Vernell Alvarez MD Date of Service: 01/16/24 XR/XR hip LT min 2V(w/wo pelvis)*: M25.552 - Pain in left hip XR hip LT min 2V(w/wo pelvis)* 01/16/2024 9:50 AM SIGNS AND SYMPTOMS: M25.552 - Pain in left hip PROTOCOL: Frontal radiograph the pelvis with crosstable lateral views of the left hip COMPARISON: 01/08/2023 FINDINGS: There has been interval total right hip arthroplasty hardware placement. There is moderate narrowing of the left hip joint space with bony spurring involving the superior rim of the acetabulum. Ossific loose bodies versus heterotopic ossification is noted along the neck of the femur. Atherosclerotic changes are noted. XR/XR hip LT min 2V(w/wo pelvis)* IMPRESSION: Uncomplicated total right hip arthroplasty. Similar degenerative changes are noted in the left hip without evidence of fracture or dislocation. Impression dictated by: Anmol Foley M.D.01/16/2024 3:57 PM Dictation Location: [place] [address] Transcribed By: [facility] 01/16/24 1557 Dictated By: Anmol Foley II, MD 01/16/24 1556 Signed By: 01/16/24 1557 Normal [facility] Basophils Auto (Bld) [#/Vol] on 01-07-2024 Basophils (Bld) [#/Vol] 0.0 10 3/uL 0.0-0.1 [facility] Basophils/100 WBC Auto (Bld) on 01-07-2024 Basophils/100 WBC (Bld) 0.7 % 0.2-2.0 [facility] Eosinophils/100 WBC Auto (Bl d)on 01-07-2024 Eosinophils/100 WBC (Bld) 2.1 % 0.9-7.0 [facility] Erythrocyte distribution wid th Auto (RBC) [Ratio]on 01-07-2024 Erythrocyte distribution width (RBC) [Ratio] 14.1 % 11.0-15.0 [facility] Estimated glomerular filtrat ion rate (GFR) non- Americanon 01-07-2024 GFR/1.73 sq M.predicted among non-blacks MDRD (S/P/Bld) [Vol rate/Area] mL/min/{1.73_m2} >=60 [facility] Globulin Calc (S) [Mass/Vol] on 01-07-2024 Globulin (S) [Mass/Vol] 3.3 g/dL [facility] Hematocrit Auto (Bld) [Volum e fraction]on 01-07-2024 Hematocrit (Bld) [Volume fraction] 39.9 % 36.0-48.0 [facility] Hemoglobin [Mass/volume] in Bloodon 01-07-2024 Hemoglobin (Bld) [Mass/Vol] 12.6 g/dL 12.0-16.0 [facility] - Chemistry and C hemistry - challengeon 01-07-2024 Albumin [Mass/Vol] 3.4 g/dL 3.4-5.0 [facility] ALP [Catalytic activity/Vol] 75 U/L 46-116 [facility] ALT [Catalytic activity/Vol] 41 U/L 14-59 [facility] AST [Catalytic activity/Vol] 22 U/L 15-37 [facility] Bilirubin [Mass/Vol] 0.8 mg/dL 0.2-1.0 [facility] Calcium [Mass/Vol] 8.6 mg/dL 8.5-10.1 [facility] Chloride [Moles/Vol] 104 mmol/L 98-107 [facility] CO2 [Moles/Vol] 29.9 mmol/L 21.0-32.0 [facility] Creatinine [Mass/Vol] 0.62 mg/dL 0.55-1.02 [facility] GFR/1.73 sq M.predicted MDRD (S/P/Bld) [Vol rate/Area] mL/min/{1.73_m2} >=60 [facility] Glucose [Mass/Vol] 82 mg/dL 74-106 [facility] Magnesium [Mass/Vol] 2.1 mg/dL 1.8-2.4 [facility] Potassium [Moles/Vol] 4.1 mmol/L 3.5-5.1 [facility] Protein [Mass/Vol] 6.7 g/dL 6.4-8.2 [facility] Sodium [Moles/Vol] 140 mmol/L 136-145 [facility] Urea nitrogen [Mass/Vol] 21.0 mg/dL High 7.0-18.0 [facility] Urea nitrogen/Creatinine [Mass ratio] 33.9 mg/mg [facility] Laboratory - Hematology and Cell countson 01-07-2024 Immature granulocytes/100 WBC (Bld) 0.2 % 0.0-0.5 [facility] Leukocytes [#/volume] correc maryjane for nucleated erythrocytes in Blood by Automated counon 01-07-2024 WBC corrected for nucl RBC Auto (Bld) [#/Vol] 5.7 10 3/uL 4.0-11.0 [facility] Lymphocytes Auto (Bld) [#/Vo l]on 01-07-2024 Lymphocytes (Bld) [#/Vol] 2.3 10 3/uL 1.2-3.8 [facility] Lymphocytes/100 WBC Auto (Bl d)on 01-07-2024 Lymphocytes/100 WBC (Bld) 40.0 % 20.5-60.0 [facility] MCH Auto (RBC) [Entitic mass ]on 01-07-2024 MCH (RBC) [Entitic mass] 30.4 pg 26.7-34.0 [facility] MCHC Auto (RBC) [Mass/Vol]on 01-07-2024 MCHC (RBC) [Mass/Vol] 31.6 g/dL 29.9-35.2 [facility] MCV Auto (RBC) [Entitic vol] on 01-07-2024 MCV (RBC) [Entitic vol] 96.1 fL 81.0-99.0 [facility] Monocytes Auto (Bld) [#/Vol] on 01-07-2024 Monocytes (Bld) [#/Vol] 0.7 10 3/uL 0.3-0.8 [facility] Monocytes/100 WBC Auto (Bld) on 01-07-2024 Monocytes/100 WBC (Bld) 11.6 % 1.7-12.0 [facility] Neutrophils Auto (Bld) [#/Vo l]on 01-07-2024 Neutrophils (Bld) [#/Vol] 2.6 10 3/uL 1.4-6.5 [facility] Neutrophils/100 WBC Auto (Bl d)on 01-07-2024 Neutrophils/100 WBC (Bld) 45.4 % 43.0-75.0 [facility] No Panel Informationon 01-06 Eosinophils # (Auto) 0.1 10 3/uL 0.0-0.7 [facility] Immature Granulocyte # (Auto) 0.01 10 3/uL 0.00-0.03 [facility] Phosphorus Level 3.8 mg/dL 2.6-4.7 [facility] Platelet mean volume Auto (B ld) [Entitic vol]on 01-07-2024 Platelet mean volume (Bld) [Entitic vol] 9.7 fL 9.5-13.5 [facility] Platelets Auto (Bld) [#/Vol] on 01-07-2024 Platelets (Bld) [#/Vol] 244 10 3/uL 150-450 [facility] RBC Auto (Bld) [#/Vol]on RBC (Bld) [#/Vol] 4.15 10 6/uL Low 4.20-5.40 [facility] Serum or plasma albumin/glob ulin mass ratioon 01-07-2024 Albumin/Globulin [Mass ratio] 1.0 {ratio} [facility] Serum or plasma anion gap de terminationon 01-07-2024 Anion gap [Moles/Vol] 10.2 mmol/L [facility] XR Hip - right 3 [facility] Result: November 18, 2023 x-rays AP and lateral of the right hip demonstrate a Press-Fit hip replacement good position alignment without evidence of loosening fracture or failure Impression: Stable appearance of right hip replacement Kameron Barry D.O. [facility] Study observation (narrative) [facility] Coding Summaryon 10-07-2023 Coding Summary HTMLBase 64 RnkocqnvIIo9kWt+PGhlYWQ+PE 6KMSPkP25tpHHmwU9fB2LFOGwS WhjvALKMLDcWEkJntwCoQI5atQ NjZXJu IC8+EK3yZZAvQtooiPIie8C1uV S9M37fwv0cZHhtrHD1YIAbBjBh tavee1uuaBh0HYdvHklbGxWt EZFgfX32SDE0qV53Up35aJQlqR Tgm3htwTr2QqLrXZKaTOA7uTby RUuhh4HbNTKnS36xgIVch8L4 QVLvpHkhrGBmZpJjyAU3wO0zFH ahhsgbz2sjdaquFvk2ej61aHDw h7W8fYF9Q3AqicC5EBNqhMRr LxtecWUVzF3tnspdv8cnihdnAu RpZNUiITw9MZe9UWVvcEroOyZj MI24EDB1MBOhukWuC6BiZSEm sScwZmP2j8E3Br5HG0JQTcoaJ3 VNTUFSWTwvdGQ+CY82oc29L7Yy RvffZbn3FMEbRDV8oTN9zS1z XKGfRAapt6S5jIP2Q7AntkKuxg 2iy9seGIQyCRmyM30onKPrw2N6 EGDorSU6UPWslIxhCpAznS96 Oyc+YDFkyIkjy1XxGkajx6xrq2 akxSt9XjreFHHxfmQhgOpyFKU7 a7YxBx6aMOFvzGH5dUC7mH3j RwOmRaI6XRjuV651ArIrkLAiMl skG09fX7SrxYC+RFQvUuz6ZRRx sCgsET1iU2KrHTPyswqpwYYo fHfrBX8cEDArfzlfNOJzlX8dDU CmJ5j4WlWbGiN5IExhM2WcJQEw tvmwFf32rY3mLkFjZaB5XWic I2JebeN0JVQnsNJqRTutYWY8V9 8pl1M8ZCFfIJAbQSK8uZM8hX3k bGlnbjogbGVmdDsgdmVydGlj CWfkSAufF263VZPutWigZsPgRR luZyBEYXRlOiAgMDEvMDIvMjAy NDwvdGQ+JSUdNZC3iLihLMPk rZOyXLtvOo3bkXzwlHekYU3fZW DttzvvKCFssI4jBHFuxGVvuNdf HR7cCWCokbiui592ZdDuTCA6 PUQdxGOsV6AbxR3rDfXgQVUzPY ThQ6JxvGWjBYhvO617RAulIwC3 UNNvdsNcJ3GcAEOmtErlTeT3 d2R7Hy6Qq5PooeevQ1JiwUNmAu FmEljcFYb0N2XnCwsqbPP+PC90 PVScEN12FVl4CWR0iWceVKjr JFBpH5QwbY2wVwPcRMGzZHSbEh c+PHRhYmxlIHdpZHRoPScxMDAl UyTlaQokHW6hCw9yRSItRKDi xBcmfTVtCoSfd2kdJPVwYOsbEO 1naChtV5MteSF9XKTfa7c8Ac38 C76bI6ZkwPB+XFKpdUI2dUZ1 xG9hWcOeIvR9ANfkR050FwYoxI YdNpvon5qto5ykvZl6FmV6JEXf geVsxPotBYV7m8TkZs02T13u IHdpZHRoPSIxNSUiIHZhbGlnbj 3ewH9qUd1+DEXcyVY3sUN3aW6e DtOiMhK0KSvnF465KbKocASh Cmjtf4wre6wrqZz6JgMwETZbxj XroSooPWV1x5NaMf86N0IfxHqp g1HdCrd3mh83kGPkc9Z0tUX3 H2XjZEAzhjdkzVVbpYclSQ0jRN SslyxlPAGjcT2nYPEvF4f4JgQy EbA1UBhoH8NoxvV2MEZnlDJv UUCseKDDuB7lrqxdj4hjksprIq EbRXObCPs2WCe6EDSwqJrrHhVb TIK0PkI2RPS6lHFwbR8mmYox coxtmY0zWyg+MSP8oQOtbUUIRT 1lOjwvdGQ+STCkGMR7tXlyRQle HSXafZ3wZUVcC1m0KtAhMcX1 ORwhE0FmmfT1TLDafWVxZZDedG ZGvM1ieyoea8cgxkrfJrSlBJOy CPo6EPi5REDhuMtoHqNzAAJ7 PdZ3PWC8sLScpJ5csKfznrctfJ 9wOyc+PrukgVnjYRU6NIi6R5Di Nvb4SIKzbTakEC6mpLZkXBdd Xi5xxFoteIggDP4tVZDtqzoxz9 85JmVjs5jdMDXxxKMkLLsxOZR9 F35gb1V0THBcAMPmOOL8dLB2 dP2ybXkwcqydaEPapCsjboPiuC suWGzhWEikD151DGFioHjkDyIp IWe1E0EbPkk9UJNseSovXN3h tTRrLXgcDk1tnKdgaGomFE7xOV Pegupys541JaXqz1xbLGNkiSTm COwiGRZ9X84my3O8AFHfCZYv LWY7eGZ7cA0yqZuernpwoEUtpI kkdzHyuBqoJQhpQPfyH990CPFx sClxWzQftLo2A1FkIll0XARk tUopTF2rcKBfTQoxDo6mkVyotU thMZ0gNXWbcedmo963EpKjn7zy KWNaxWPaFNxhHSZ7B70do1L5 DJGeQVKeTYG1uRK0xM5lwXtgis ogbGVmdDsgdmVydGljYWwtYWxp C644KVNarHoyBnDqlVeqxeSg TEuoCUk7H9XyCcnesNA+PC90YW CyQK38tVClpAMll6ovuZy4KeIb CFOwBRK8qXyhLBbdx5XxWGOp G67uoOPhp0O6HXWkcQmutETzTl ZbqGD0hZ1kDUujfomlk5hoptzt Spzxx5ycet67pI34Q20sGGlm YPYsDCAhARFeGRKkiRrwqh8tdG 9wIi8+VQTplYU7mFT2bD9kCPRq UjF3NQdlF037KhCxsAYvLwew d1ney5jukFu4DsT4MQQvvzTjfG czGIZ8j0BlSs76L21eXZveZIYb RDFuOPQcDBGaiOldfr5exT0o Ii8+NHNvnEN2wIM4zA6uWtOhQv Q9NSaoM308BcJfyIVcSxddL48n E0IwdYF+HWPbEls2RFHvqWlw FP1wiRCjVNymFj4xYSW7YeWkGd DzYVlmU3GnDSFwoggrmzczdEC5 DDIcCZIqaM59Xc3ywRobMPLx dECYiL6gmawsu0rcjjgnUlVdQL HgIJh3ACy1DHLrzUjvBcIxBFK3 LmM5OZM2wVJciD5mcYfcnzvg jJ5dP4AjLCUkkxjyMh13fH7wCo NkQcQ4LTvzZzt+WklFQkVSLCBK RUFOIEFOTjwvdGQ+PHRkIHN0 mIvaFJhsZUXztB0nKWFhM4i6Pb JcJhT9RQnmM0QkHZSobumjRa46 dN4aPlYxOgB4EWxmD7TxfdB4 JMRmuMYrFQkeDDX8A34qi6O6OM HsZYTtBGC1pSH7wG2gxNyvelxf bGVmdDsgdmVydGljYWwtYWxp G344CHDuqVqcFyZcVkGsInT0XQ M8Z2WoEjk4NHHmuOdnBV7hcTMi PHnnFu8uzFjjjRggYR3yTUNo jgceDSBkpK3fEEElqUJlgGjoTX 0yBAXnwivxo965GhTvQBM1WXAt vYZfI3EhvO6qVuDuVIPrQCVg B3JapFSfZWpdX194CWwcHdE9JI SuigTsM0HaMFTfpCkaBnD3e4B7 Cc20QcYIXWOarkxnkOI+PHRk UIC8wLesAEdlCZJfvR7cTADyX2 w8JxSjLoQ2NQtzR0GuXMWfpkbc Xi42rB2uNpFkCyV6NHylN3Ze wtV9NFOhrYDuRDlzFIW9I03zy9 T2ZGBuZZEqRAS4yAA8tU7waMje bjogbGVmdDsgdmVydGljYWwt EIzyG605LVPduMeuGeNPAZMQVX wvdGQ+SUYzBLN7aVcjDTciSAKo xY3zRJXkQ6e6NbQjFzB7SVax Q6GpZZHjuovnOu17jJ4wRvXbUe M6PMoaY2WhzcP4SHQzqKLaBJuq CVG5C66nq2W6RUGgMKVwHNP9 kLA7xK3yoShwwdyggMLjuDzevq JbhRnbUJzkZXhjK546YENveGgz Tf7AIZ46AP36Q0PhZtwsjQRq bGU+PHRhYmxlIHdpZHRoPScxMD HhNhXkgPpsHM7nFg8qTDRzDTJo bAwckZFpGaCyo7jyVGMfMKam XW8irEsyZ1BjvTQ9SGAva0s0Zz 93L44uS7VtvLR+AGXdvBA2iBB3 tD3mTdYsQyW9ZZzpY256QjJq bRFoZjgop8gwe0pikPm6KqFmLM BtneBshLtjNJV2f9QoYb64R46u IHdpZHRoPSIyMCUiIHZhbGln gf0cyE1lAn7+ZZIjfZZ1bOT0fY 5yLpPdBdP0GTbqG372CaKnmKQp StuwY81xW0GxwWK+PHRyPjx0 JFXmqRawAR6rqVOjVWetIb9pMD K5CjHhHuZrWOkxK9JsSENhnnjt ianjmAN2VQOyTNGjpN24Cs9e wGujXr3pVEBaLWG9RMEekDMpW1 MqtX4xJyFbBOWuKDQmB8ShrTUe AIgeA722GAfaMwJ7ULXdqeSx V0AfZSPmeDjmEiY5f7O8Ko4ZlZ kekJKhCS6kGuOeOOw3E0DqBkl0 IXBpoSfsLT3wcWCeVYwrHs6n tTtwyLfpYF8qXLHinsapi470Ba Gwr1meLSXenREmJGcpWDZ9P38m h9L0GKTuLBIbREJ3aBF8nF0l bGlnbjogbGVmdDsgdmVydGljYW mgWQggP566MYMsdXdtZoNRVtn6 O4LtNtv9BCPoxMkoFX2ubNEj JJnlSy1duBceaIrkGS9jESNbil wzc530FnIvo7rvLNZkqTDqBRva XGV2F17wf6E8JDKlYGRaMMU2 jLY0gH4niWxnbtommRQpuSzwnn SklTmiSDwaWHlfY903MHUtyVhi Hh1COsi4A9PpKhk4YRTvxEkc VB6evZWrIKrpVv3uiMuorTwtCM 2sVCZragsxd266TrXly4qvUJYc zQWbPXohZUF7C20ue8A8SLOb JQKmYSO6pAL6iQ4pcMswqtfhwV JvcVgxqhSfxUqaZHksRPfbE104 IHRvcDsnPlBheWVyOjwvdGQ+ UW72qg59K9KeNvwtElv5NDMcKQ G2oQP4cW1vFCBiEBjcm5I9oLB0 Q8OilnUajz2jn3hsRSLhYQll Y29 (more content not included)... [facility] COVID/FLU/RSV RT-PCRon 10-03 SARS-CoV-2 (COVID-19) RNA GÓMEZ+probe Ql (Unsp spec) Positive [facility] Testt Other COVID/FLU/RSV RT-PCR Negative [facility] Other Provider Orderson 09-25-2023 Provider Orders [id number] FF [facility] US LE Venous Duplex Righton 09-25-2023 US LE Venous Duplex Right CLINICAL HISTORY: Right [...] Jack Khalil MD 09/25/23 1:37 pm Technologist: PM,REJI [facility] Alanine aminotransferase [En zymatic activity/volume] in Serum or PlasmaOrdered By: Joshua Phipps on 08-19-2023 ALT [Catalytic activity/Vol] 20 U/L Normal [facility] Comment on above: Performed By: #### C MP, PHOS, CBC, MG #### [address] Albumin [Mass/volume] in Ser um or Plasma by Bromocresol green (BCG) dye binding methoOrdered By: Joshua Phipps on 08-19-2023 Albumin BCG dye [Mass/Vol] 4.0 g/dL 3.5-5.7 [facility] Alkaline phosphatase [Enzyma tic activity/volume] in Serum or PlasmaOrdered By: Joshua Phipps on 08-19-2023 ALP [Catalytic activity/Vol] 88 U/L Normal 34-104 [facility] Comment on above: Performed By: #### C MP, PHOS, CBC, MG #### [address] Aspartate aminotransferase [ Enzymatic activity/volume] in Serum or PlasmaOrdered By: Joshua Phipps on 08-19-2023 AST [Catalytic activity/Vol] 16 U/L Normal 13-39 [facility] Comment on above: Performed By: #### C MP, PHOS, CBC, MG #### [address] Automated basophil %Ordered By: Joshua Waggonerrow on 08-19-2023 Basophils/100 WBC (Bld) 0.5 % Normal . [facility] Comment on above: Performed By: #### C BC #### [address] Automated basophil countOrde red By: Joshua Waggonerrow on 08-19-2023 Basophils (Bld) [#/Vol] 0.0 10*3/uL Normal 0.0-0.2 [facility] Comment on above: Result Comment: PERF ORMED BY: [place] [address] PATHOLOGIST CATH LABORATORY TECHNICIAN KRISTINA ENNIS M.D. Performed By: #### C BC #### [address] Automated blood monocyte cou ntOrdered By: Joshua Waggonerrow on 08-19-2023 Monocytes (Bld) [#/Vol] 0.5 10*3/uL Normal 0.0-0.8 [facility] Comment on above: Performed By: #### C BC #### [address] Automated eosinophil %Ordere d By: Joshua Phipps on 08-19-2023 Eosinophils/100 WBC (Bld) 1.7 % Normal . [facility] Comment on above: Performed By: #### C BC #### [address] Automated eosinophil countOr dered By: Joshua Phipps on 08-19-2023 Eosinophils (Bld) [#/Vol] 0.1 10*3/uL Normal 0.0-0.45 [facility] Comment on above: Performed By: #### C BC #### [address] Automated monocyte %Ordered By: Joshua Phipps on 08-19-2023 Monocytes/100 WBC (Bld) 8.3 % Normal . [facility] Comment on above: Performed By: #### C BC #### [address] Automated neutrophil %Ordere d By: Joshua Phipps on 08-19-2023 Neutrophils/100 WBC (Bld) 66.6 % Normal . [facility] Comment on above: Performed By: #### C BC #### [address] Bilirubin.total [Mass/volume ] in Serum or PlasmaOrdered By: Joshua Waggonerrow on 08-19-2023 Bilirubin [Mass/Vol] 0.4 mg/dL Normal 0.3-1.0 [facility] Comment on above: Performed By: #### C MP, PHOS, CBC, MG #### [address] Calcium [Mass/volume] in Ser um or PlasmaOrdered By: Joshua Waggonerrow on 08-19-2023 Calcium [Mass/Vol] 8.9 mg/dL Normal 8.6-10.3 [facility] Comment on above: Performed By: #### C MP, PHOS, CBC, MG #### [place] [address] [place] Carbon dioxide, total [Moles /volume] in Serum or PlasmaOrdered By: Joshua Phipps on 08-19-2023 CO2 [Moles/Vol] 32.0 mmol/L High 21.0-31.0 [facility] Comment on above: Performed By: #### C MP, PHOS, CBC, MG #### [address] Chloride [Moles/volume] in S moe or PlasmaOrdered By: Joshua Phipps on 08-19-2023 Chloride [Moles/Vol] 105 mmol/L Normal 98-107 [facility] Comment on above: Performed By: #### C MP, PHOS, CBC, MG #### [address] Complete Blood Count Auto Di ffon 08-19-2023 Mean Corpuscular HGB Conc 32.6 g/dL Normal 32.0-35.0 [facility] Comment on above: Performed By: #### C BC #### [address] NRBC% 0.1 /100{WBC} Normal 0-0.5 [facility] Comment on above: Performed By: #### C BC #### [address] Comprehensive Metabolic Pane kacey 08-19-2023 Albumin [Mass/Vol] 4.0 g/dL Normal 3.5-5.7 [facility] Comment on above: Performed By: #### C MP, PHOS, CBC, MG #### [place] [address] [place] GFR/1.73 sq M.predicted MDRD (S/P/Bld) [Vol rate/Area] mL/min/{1.73_m2} Normal [facility] Comment on above: Performed By: #### C MP, PHOS, CBC, MG #### [address] Creatinine [Mass/volume] in Serum or PlasmaOrdered By: Joshua Phipps on 08-19-2023 Creatinine [Mass/Vol] 0.53 mg/dL Low 0.60-1.20 [facility] Comment on above: Performed By: #### C MP, PHOS, CBC, MG #### [facility] [address] Erythrocyte distribution wid th [Ratio] by Automated countOrdered By: Joshua Phipps on 08-19-2023 Erythrocyte distribution width (RBC) [Ratio] 14.8 % Normal 11.9-15.3 [facility] Comment on above: Performed By: #### C BC #### [address] Erythrocytes [#/volume] in B lood by Automated countOrdered By: Joshua Phipps on 08-19-2023 RBC (Bld) [#/Vol] 4.18 10*6/uL Normal 3.60-5.00 [facility] Comment on above: Performed By: #### C BC #### [address] Glucose [Mass/volume] in Ser um or PlasmaOrdered By: Joshua Phipps on 08-19-2023 Glucose [Mass/Vol] 94 mg/dL Normal 70-100 [facility] Comment on above: ADA recommended refe rence rangeRandom Glucose Reference Range is dependent on time and content of last meal. Glucose of more than 200 mg/dL in a nonstressed, ambulatory subject supports the diagnosis of Diabetes Mellitus. Result Comment: [place] Glucose Reference Range is dependent on time and content of last meal. Glucose of more than 200 mg/dL in a nonstressed, ambulatory subject supports the diagnosis of Diabetes Mellitus. ADA recommended reference range Performed By: #### C MP, PHOS, CBC, MG #### [address] Hematocrit [Volume Fraction] of Blood by Automated countOrdered By: Joshua Phipps on 08-19-2023 Hematocrit (Bld) [Volume fraction] 38.1 % Normal 34.0-46.4 [facility] Comment on above: Performed By: #### C BC #### [address] Hemoglobin [Mass/volume] in BloodOrdered By: Joshua Phipps on 08-19-2023 Hemoglobin (Bld) [Mass/Vol] 12.4 g/dL Normal 11.8-15.4 [facility] Comment on above: Performed By: #### C BC #### [address] Leukocytes [#/volume] correc maryjane for nucleated erythrocytes in Blood by Automated counOrdered By: Joshua Waggonerrow on 08-19-2023 WBC corrected for nucl RBC Auto (Bld) [#/Vol] 6.6 10*3/uL 3.8-11.6 [facility] Leukocytes [#/volume] in Blo od by Automated countOrdered By: Joshua Waggonerrow on 08-19-2023 WBC (Bld) [#/Vol] 6.6 10*3/uL Normal 3.8-11.6 [facility] Comment on above: Performed By: #### C BC #### [address] Lymphocytes [#/volume] in Bl ood by Automated countOrdered By: Joshua Waggonerrow on 08-19-2023 Lymphocytes (Bld) [#/Vol] 1.5 10*3/uL Normal 1.00-4.8 [facility] Comment on above: Performed By: #### C BC #### [place] [address] [place] Lymphocytes/100 leukocytes i n Blood by Automated countOrdered By: Joshua Waggonerrow on 08-19-2023 Lymphocytes/100 WBC (Bld) 22.9 % Normal . [facility] Comment on above: Performed By: #### C BC #### [place] [address] [place] MCH [Entitic mass] by Automa maryjane countOrdered By: Joshua Waggonerrow on 08-19-2023 MCH (RBC) [Entitic mass] 29.7 pg Normal 24.7-34.3 [facility] Comment on above: Performed By: #### C BC #### [address] MCHC Auto (RBC) [Mass/Vol]Or dered By: Joshua Phipps on 08-19-2023 MCHC (RBC) [Mass/Vol] 32.6 g/dL 32.0-35.0 [facility] MCV [Entitic volume] by Auto mated countOrdered By: Joshua Moise on 08-19-2023 MCV (RBC) [Entitic vol] 91.1 fL Normal 80-100 [facility] Comment on above: Performed By: #### C BC #### [address] Magnesium [Mass/volume] in S moe or PlasmaOrdered By: Joshua Phipps on 08-19-2023 Magnesium [Mass/Vol] 2.0 mg/dL Normal 1.9-2.7 [facility] Comment on above: Result Comment: PERF ORMED BY: [place] [address] PATHOLOGIST CATH LABORATORY TECHNICIAN KRISTINA ENNIS M.D. Performed By: #### C MP, PHOS, CBC, MG #### [facility] [address] [place] [address] Neutrophils [#/volume] in Bl ood by Automated countOrdered By: Joshua Phipps on 08-19-2023 Neutrophils (Bld) [#/Vol] 4.4 10*3/uL Normal 1.8-7.7 [facility] Comment on above: Performed By: #### C BC #### [facility] [address] [place] [address] No Panel InformationOrdered By: Joshua Phipps on 08-19-2023 Estimated GFR (CKD-EPI) > 60.0 mL/Min [facility] Creatinine Clearance (Chem N/A [facility] Nucleated erythrocytes [Pres ence] in Blood by Automated countOrdered By: Joshua Phipps on 08-19-2023 Nucleated RBC Auto Ql (Bld) 0.1 /100{WBC} 0-0.5 [facility] Phosphate [Mass/volume] in S moe or PlasmaOrdered By: Joshua Waggonerrow on 08-19-2023 Phosphate [Mass/Vol] 3.9 mg/dL Normal 2.5-4.5 [facility] Comment on above: Performed By: #### C MP, PHOS, CBC, MG #### [address] Platelet mean volume [Entiti c volume] in Blood by Automated countOrdered By: Joshua Waggonerrow on 08-19-2023 Platelet mean volume (Bld) [Entitic vol] 8.3 fL Normal 6.3-10.7 [facility] Comment on above: Performed By: #### C BC #### [address] Platelets [#/volume] in Bloo d by Automated countOrdered By: Joshua Moise on 08-19-2023 Platelets (Bld) [#/Vol] 275 10*3/uL Normal 150-450 [facility] Comment on above: Performed By: #### C BC #### [address] Potassium [Moles/volume] in Serum or PlasmaOrdered By: Joshua Waggonerrow on 08-19-2023 Potassium [Moles/Vol] 4.2 mmol/L Normal 3.5-5.1 [facility] Comment on above: Performed By: #### C MP, PHOS, CBC, MG #### [address] Protein [Mass/volume] in Ser um or PlasmaOrdered By: Joshua Moise on 08-19-2023 Protein [Mass/Vol] 6.4 g/dL Normal 6.4-8.9 [facility] Comment on above: Performed By: #### C MP, PHOS, CBC, MG #### [address] Serum globulin measurement b y calculation (mass/volume)Ordered By: Joshuafortino Phipps on 08-19-2023 Globulin (S) [Mass/Vol] 2.4 g/dL [facility] Comment on above: Performed By: #### C MP, PHOS, CBC, MG #### [facility] [address] [place] [address] Serum or plasma albumin/glob ulin mass ratioOrdered By: Joshua Moise on 08-19-2023 Albumin/Globulin [Mass ratio] 1.7 {ratio} [facility] Comment on above: Performed By: #### C MP, PHOS, CBC, MG #### [facility] [address] [place] [address] Serum or plasma anion gap de terminationOrdered By: Joshua Moise on 08-19-2023 Anion gap [Moles/Vol] 7.2 mmol/L Normal 6.0-15.0 [facility] Comment on above: Performed By: #### C MP, PHOS, CBC, MG #### [facility] [address] [place] [address] Sodium [Moles/volume] in Ser um or PlasmaOrdered By: Joshua Phipps on 08-19-2023 Sodium [Moles/Vol] 140 mmol/L Normal 136-145 [facility] Comment on above: Performed By: #### C MP, PHOS, CBC, MG #### [facility] [address] [place] [address] Urea nitrogen [Mass/volume] in Serum or PlasmaOrdered By: Joshuafortino Phipps on 08-19-2023 Urea nitrogen [Mass/Vol] 21 mg/dL Normal 7-25 [facility] Comment on above: Performed By: #### C MP, PHOS, CBC, MG #### [facility] [address] [place] [address] Office Visiton 04-25-2023 Follow-up visit [id number] Thiago Sabillon 1950 F Date Provider Department Center 04/25/2023 [facility] Family History Problem Relation Age of Onset Transient ischemic attack Father Family Status - Relation Status Age at Father Level of Service:13992 CO OFFICE/OUTPATIENT ESTABLISHED MOD MDM 30-39 MIN Normal [facility] Provider Orderson 04-24-2023 Provider Orders [id number] [facility] PAP ACOG PANEL 2: 30 to 65on 09-22-2022 . . Normal [facility] Comment on above: Performed By: #### 4 [id number] #### [facility] [address] [address] [address] Bree Scott Age Gdln ACOG Testing Comment Normal [facility] Comment on above: Result Comment: <21 or >65 or no age provided Performed By: #### 4 [id number] #### [facility] [address] [address] [address] Bree Scott DIAGNOSIS: Comment [facility] Comment on above: Result Comment: NEGA TIVE FOR INTRAEPITHELIAL LESION OR MALIGNANCY. CELLULAR CHANGES ASSOCIATED WITH ATROPHY ARE PRESENT. Performed By: #### 4 [id number] #### [facility] [address] [place] [address] Dr. Bree Scott Methodology: Comment [facility] Comment on above: Result Comment: This liquid based ThinPrep(R) pap test was screened with the use of an image guided system. Performed By: #### 4 [id number] #### [facility] [address] [place] [address] Dr. Bree Scott Note: Comment [facility] Comment on above: Result Comment: The Pap smear is a screening test designed to aid in the detection of premalignant and malignant conditions of the uterine cervix. It is not a diagnostic procedure and should not be used as the sole means of detecting cervical cancer. Both false-positive and false-negative reports do occur. . Performed By: #### 4 [id number] #### [facility] [address] [place] [address] Dr. Bree Scott Performed by: Comment Normal [facility] Comment on above: Result Comment: Cherri Rodriguez, Associate Curator (ASCP) Performed By: #### 4 [id number] #### [facility] [address] [place] [address] Dr. Bree Scott Specimen adequacy: Comment Normal [facility] Comment on above: Result Comment: Sati sfactory for evaluation. Endocervical component may not be distinguished in cases of atrophy. Performed By: #### 4 [id number] #### [facility] [address] [place] [address] Dr. Bree Scott CREATININEon 06-12-2022 Creatinine [Mass/Vol] 0.67 mg/dL Normal 0.55-1.02 [facility] Comment on above: Performed By: #### C HAYLEY #### [facility] [address] [place] [address] Dr. Bree Scott EGFR-AF ICELANDIC >60 Normal >=60 [facility] Comment on above: Performed By: #### C HAYLEY #### [facility] [address] [place] [address] Dr. Bree Scott EGFR-NON AF ICELANDIC >60 Normal >=60 [facility] Comment on above: Performed By: #### C HAYLEY #### [facility] [address] [place] [address] Dr. Bree Scott CTA ABD/PELVIS WO W [...] the hip joints. Electronically authenticated by: JACK SABILLON Date: 2022-06-12 21:49 Normal [facility] US EXT NON VASC LIMITED RTon [...] tenderness during imaging. Electronically authenticated by: JACK SABILLON Date: 2022-05-21 10:04 Normal [facility] CBC AUTO DIFFon 04-24-2022 BASO # 0.0 103/ul Normal 0.0-0.1 [facility] Comment on above: Performed By: #### C BC #### [facility] [address] [address] [address] Bree Scott Basophils/100 WBC (Bld) 0.6 % Normal 0.2-2.0 [facility] Comment on above: Performed By: #### C BC #### [facility] [address] [address] [address] Bree Scott EO # 0.2 103/ul Normal 0.0-0.7 [facility] Comment on above: Performed By: #### C BC #### [facility] [address] [place] [address] Dr. Bree Scott Eosinophils/100 WBC (Bld) 2.6 % Normal 0.9-7.0 [facility] Comment on above: Performed By: #### C BC #### [facility] [address] [place] [address] Dr. Bree Scott Erythrocyte distribution width (RBC) [Ratio] 13.3 % Normal 11.0-15.0 [facility] Comment on above: Performed By: #### C BC #### [facility] [address] [place] [address] Dr. Bree Scott Hematocrit (Bld) [Volume fraction] 40.5 % Normal 36.0-48.0 [facility] Comment on above: Performed By: #### C BC #### [facility] [address] [place] [address] Dr. Bree Scott Hemoglobin (Bld) [Mass/Vol] 13.1 g/dL Normal 12.0-16.0 [facility] Comment on above: Performed By: #### C BC #### [facility] [address] [place] [address] Dr. Bree Scott IG # 0.01 10e3/ul Normal 0.00-0.03 [facility] Comment on above: Performed By: #### C BC #### [facility] [address] [place] [address] Dr. Bree Scott IG % 0.2 % Normal 0.0-0.5 [facility] Comment on above: Performed By: #### C BC #### [facility] [address] [place] [address] Dr. Bree Scott LYMPH # 2.1 103/ul Normal 1.2-3.8 [facility] Comment on above: Performed By: #### C BC #### [facility] [address] [place] [address] Dr. Bree Scott Lymphocytes/100 WBC (Bld) 31.8 % Normal 20.5-60.0 [facility] Comment on above: Performed By: #### C BC #### [facility] [address] [place] [address] Dr. Bree Scott MANUAL DIFF REQ NO Normal [facility] Comment on above: Performed By: #### C BC #### [facility] [address] [place] [address] Dr. Bree Scott MCH (RBC) [Entitic mass] 30.5 pg Normal 26.7-34.0 [facility] Comment on above: Performed By: #### C BC #### [facility] [address] [place] [address] Dr. Bree Scott MCHC (RBC) [Mass/Vol] 32.3 g/dL Normal 29.9-35.2 [facility] Comment on above: Performed By: #### C BC #### [facility] [address] [place] [address] Dr. Bree Scott MCV (RBC) [Entitic vol] 94.4 fL Normal 81.0-99.0 [facility] Comment on above: Performed By: #### C BC #### [facility] [address] [place] [address] Dr. Bree Scott MONO # 0.6 103/ul Normal 0.3-0.8 [facility] Comment on above: Performed By: #### C BC #### [facility] [address] [place] [address] Dr. Bree Scott Monocytes/100 WBC (Bld) 9.9 % Normal 1.7-12.0 [facility] Comment on above: Performed By: #### C BC #### [facility] [address] [place] [address] Dr. Bree Scott NEUT # 3.5 103/ul Normal 1.4-6.5 [facility] Comment on above: Performed By: #### C BC #### [facility] [address] [place] [address] Dr. Bree Scott Neutrophils/100 WBC (Bld) 54.9 % Normal 43.0-75.0 [facility] Comment on above: Performed By: #### C BC #### [facility] [address] [address] [address] Bree Scott Platelet mean volume (Bld) [Entitic vol] 9.2 fL Critically low 9.5-13.5 [facility] Comment on above: Performed By: #### C BC #### [facility] [address] [address] [address] Bree Scott PLT 243 103/ul Normal 150-450 [facility] Comment on above: Performed By: #### C BC #### [facility] [address] [address] [address] Bree Scott RBC 4.29 106/ul Normal 4.20-5.40 [facility] Comment on above: Performed By: #### C BC #### [facility] [address] [place] [address] Dr. Bree Scott WBC 6.4 103/ul Normal 4.0-11.0 [facility] Comment on above: Performed By: #### C BC #### [facility] [address] [place] [address] Dr. Bree Scott ECHOCARDIO M/2D COMPLETEon 0 04-24-2022 ECHOCARDIO M/2D COMPLETE Patient: THIAGO SABILLON Exam Date: 04/24/2022 : 1950 Gender:F Ordering : LISA EATON Admission #: [id number] Family : DR KALLIE CHASE M.D. Order #: [id number] CLICK HERE TO VIEW EXAM ECHOCARDIOGRAM REPORT [...] (Antegrade Flow): 1.19 m/s AoV Area (Peak Shiva): 2.33 cm2, 2.33 cm2 Peak Velocity(Antegrade Flow): 1.19 m/s Peak Gradient(Antegrade Flow): 5.68 mm[Hg] Tricuspid Valve Peak Velocity (Regurgitant Flow): 1.98 m/s, 2.16 m/s Peak Velocity: 0.56 m/s Pulmonic Valve PV Max Shiva (0.6 - 0.9 m per sec): 0.72 m/s PV Max Gradient: 2.08 mm[Hg] Right Atrium Dictated by: Balta Jane M.D. on 04/24/2022 at 16:41 Approved by: Balta Jane M.D. on 04/24/2022 at 16:45 Normal [facility] LIPID PROFILEon 04-24-2022 CHOL-HDL RATIO NORM SEE BELOW Normal [facility] Comment on above: Result Comment: 3.3 - 4.4 LOW RISK 4.4 - 7.1 AVERAGE RISK 7.1 - 11.0 MODERATE RISK >11.0 HIGH RISK Performed By: #### C MP, LIPID #### [facility] [address] [address] [address] Bree Scott Cholesterol [Mass/Vol] 136 mg/dL Normal <=200 [facility] Comment on above: Performed By: #### C MP, LIPID #### [facility] [address] [address] [address] Bree Scott Cholesterol in HDL [Mass/Vol] 64 mg/dL Critically high 40-60 [facility] Comment on above: Performed By: #### C MP, LIPID #### [facility] [address] [address] [address] Bree Scott Cholesterol in LDL [Mass/Vol] 63.8 mg/dL Normal [facility] Comment on above: Performed By: #### C MP, LIPID #### [facility] [address] [address] [address] Bree Scott Cholesterol.total/Cho lesterol in HDL [Mass ratio] 2.1 {ratio} Normal [facility] Comment on above: Performed By: #### C MP, LIPID #### [facility] [address] [address] [address] Bree Scott HDL NORMAL > or = 60 mg/dl - LO W CARDIOVASCULAR RISK <40 mg/dl - HIGH CARDIOVASCULAR RISK Normal [facility] Comment on above: Performed By: #### C MP, LIPID #### [facility] [address] [address] [address] Bree Scott LDL CALC NORMAL SEE BELOW Normal [facility] Comment on above: Result Comment: <100 mg/dl OPTIMAL 100 - 129 mg/dl NEAR OR ABOVE OPTIMAL 130 - 159 mg/dl BORDERLINE HIGH 160 - 189 mg/dl HIGH >190 mg/dl VERY HIGH Performed By: #### C MP, LIPID #### [facility] [address] [address] [address] Bree Scott Triglyceride [Mass/Vol] 41 mg/dL Normal <=150 [facility] Comment on above: Performed By: #### C MP, LIPID #### [facility] [address] [address] [address] Bree Scott VLDL CALC 8.2 mg/dL Normal [facility] Comment on above: Performed By: #### C MP, LIPID #### [facility] [address] [place] [address] Dr. Bree Scott PROF 14(COMP METB)on 022 Albumin [Mass/Vol] 3.4 g/dL Normal 3.4-5.0 [facility] Comment on above: Performed By: #### C MP, LIPID #### [facility] [address] [place] [address] Dr. Bree Scott Albumin/Globulin [Mass ratio] 1.2 {ratio} Normal [facility] Comment on above: Performed By: #### C MP, LIPID #### [facility] [address] [place] [address] Dr. Bree Scott ALP [Catalytic activity/Vol] 72 U/L Normal 46-116 [facility] Comment on above: Performed By: #### C MP, LIPID #### [facility] [address] [place] [address] Dr. Bree Scott ALT [Catalytic activity/Vol] 45 U/L Normal 14-59 [facility] Comment on above: Performed By: #### C MP, LIPID #### [facility] [address] [place] [address] Dr. Bree Scott Anion gap [Moles/Vol] 9.1 mmol/L Normal [facility] Comment on above: Performed By: #### C MP, LIPID #### [facility] [address] [place] [address] Dr. Bree Scott AST [Catalytic activity/Vol] 22 U/L Normal 15-37 [facility] Comment on above: Performed By: #### C MP, LIPID #### [facility] [address] [place] [address] Dr. Bree Scott Bilirubin [Mass/Vol] 0.6 mg/dL Normal 0.2-1.0 [facility] Comment on above: Performed By: #### C MP, LIPID #### [facility] [address] [place] [address] Dr. Bree Scott Calcium [Mass/Vol] 8.6 mg/dL Normal 8.5-10.1 [facility] Comment on above: Performed By: #### C MP, LIPID #### [facility] [address] [place] [address] Dr. Bree Scott Chloride [Moles/Vol] 106 mmol/L Normal 98-107 [facility] Comment on above: Performed By: #### C MP, LIPID #### [facility] [address] [place] [address] Dr. Bree Scott CO2 [Moles/Vol] 31.4 mmol/L Normal 21.0-32.0 [facility] Comment on above: Performed By: #### C MP, LIPID #### [facility] [address] [place] [address] Dr. Bree Scott Creatinine [Mass/Vol] 0.60 mg/dL Normal 0.55-1.02 [facility] Comment on above: Performed By: #### C MP, LIPID #### [facility] [address] [place] [address] Dr. Bree Scott EGFR-AF ICELANDIC >60 Normal >=60 [facility] Comment on above: Performed By: #### C MP, LIPID #### [facility] [address] [place] [address] Dr. Bree Scott EGFR-NON AF ICELANDIC >60 Normal >=60 [facility] Comment on above: Performed By: #### C MP, LIPID #### [facility] [address] [place] [address] Dr. Bree Scott Globulin (S) [Mass/Vol] 2.9 g/dL Normal [facility] Comment on above: Performed By: #### C MP, LIPID #### [facility] [address] [place] [address] Dr. Bree Scott Glucose [Mass/Vol] 95 mg/dL Normal 74-106 [facility] Comment on above: Performed By: #### C MP, LIPID #### [facility] [address] [place] [address] Dr. Bree Scott Potassium [Moles/Vol] 4.5 mmol/L Normal 3.5-5.1 [facility] Comment on above: Performed By: #### C MP, LIPID #### [facility] [address] [address] [address] Bree Scott Protein [Mass/Vol] 6.3 g/dL Critically low 6.4-8.2 [facility] Comment on above: Performed By: #### C MP, LIPID #### [facility] [address] [address] [address] Bree Scott Sodium [Moles/Vol] 142 mmol/L Normal 136-145 [facility] Comment on above: Performed By: #### C MP, LIPID #### [facility] [address] [address] [address] Bree Scott Urea nitrogen [Mass/Vol] 28.0 mg/dL Critically high 7.0-18.0 [facility] Comment on above: Performed By: #### C MP, LIPID #### [facility] [address] [place] [address] Dr. Bree Scott Urea nitrogen/Creatinine [Mass ratio] 46.7 mg/mg Normal [facility] Comment on above: Performed By: #### C MP, LIPID #### [facility] [address] [place] [address] Dr. Bree Scott BASIC METABOLIC PANELon 06-2 Calcium [Mass/Vol] 8.9 mg/dL Normal 8.6-10.3 [facility] Comment on above: Order Comment: evalu ate Atelectasis Performed By: #### 0 [id number], [id number] ####[facility] [facility] [place] [address], [facility] Chloride [Moles/Vol] 99 mmol/L Normal 98-107 [facility] Comment on above: Order Comment: evalu ate Atelectasis Performed By: #### 0 [id number], [id number] ####[facility] [place] [address], [place] CO2 [Moles/Vol] 30 mmol/L Normal 21-31 [facility] Comment on above: Order Comment: evalu ate Atelectasis Performed By: #### 0 [id number], [id number] ####[facility] [place] [address], [facility] Creatinine [Mass/Vol] 0.51 mg/dL Low 0.60-1.20 [facility] Comment on above: Order Comment: evalu ate Atelectasis Performed By: #### 0 [id number], [id number] ####[facility] [place] [address], [facility] GFR/1.73 sq M.predicted among blacks MDRD (S/P/Bld) [Vol rate/Area] mL/min/{1.73_m2} Normal >60 [facility] [facility] Comment on above: Order Comment: evalu ate Atelectasis Performed By: #### 0 0071, 95556 ####[facility] [place] [address], [facility] GFR/1.73 sq M.predicted among non-blacks MDRD (S/P/Bld) [Vol rate/Area] mL/min/{1.73_m2} Normal >60 [facility] Comment on above: Order Comment: evalu ate Atelectasis Performed By: #### 0 0071, 87098 ####[facility] [place] [address], [facility] Glucose [Mass/Vol] 82 mg/dL Normal 70-100 [facility] Comment on above: Order Comment: evalu ate Atelectasis Performed By: #### 0 0071, 05914 ####[facility] [place] [address], [facility] Potassium [Moles/Vol] 4.0 mmol/L Normal 3.5-5.1 [facility] Comment on above: Order Comment: evalu ate Atelectasis Performed By: #### 0 0071, 00674 ####[facility] [id number], [facility] Sodium [Moles/Vol] 135 mmol/L Low 136-145 [facility] Comment on above: Order Comment: evalu ate Atelectasis Performed By: #### 0 0071, 92725 ####[facility] [place] [address], [facility] Urea nitrogen [Mass/Vol] 17 mg/dL Normal 7-25 [facility] Comment on above: Order Comment: evalu ate Atelectasis Performed By: #### 0 0071, 73112 ####[facility] [place] [address], [facility] CBC COMPLETE BLOOD COUNTon 0 03-27-2021 Erythrocyte distribution width (RBC) [Ratio] 13.2 % Normal 11.5-15.0 [facility] Comment on above: Order Comment: No: D o not add to previous draw Performed By: #### 8 3019 #### [facility] [address] [place] [address], [facility] Hematocrit (Bld) [Volume fraction] 33.1 % Low 36.0-45.0 [facility] Comment on above: Order Comment: No: D o not add to previous draw Performed By: #### 8 0509 #### [facility] [address] [place] [address], [place] Hemoglobin (Bld) [Mass/Vol] 10.4 g/dL Low 12.0-15.0 [facility] Comment on above: Order Comment: No: D o not add to previous draw Performed By: #### 8 0109 #### [facility] [address] [place] [address], [place] MCH (RBC) [Entitic mass] 30.1 pg Normal 27.0-33.0 [facility] Comment on above: Order Comment: No: D o not add to previous draw Performed By: #### 8 7949 #### [facility] [address] MCHC (RBC) [Mass/Vol] 31.4 g/dL Low 32.0-35.0 [facility] Comment on above: Order Comment: No: D o not add to previous draw Performed By: #### 8 5499 #### [facility] [address] [place] [address], [facility] MCV (RBC) [Entitic vol] 95.9 fL Normal 82.0-98.0 [facility] Comment on above: Order Comment: No: D o not add to previous draw Performed By: #### 8 5499 #### [facility] [address] [facility] [place] [address], [facility] Nucleated RBC/100 WBC (Bld) [Ratio] 0 % Normal 0-0 [facility] Comment on above: Order Comment: No: D o not add to previous draw Performed By: #### 8 5499 #### [facility] [address] [facility] [place] [address], [facility] PLAT CNT 303 10*3/uL Normal 150-400 [facility] Comment on above: Order Comment: No: D o not add to previous draw Performed By: #### 8 5499 #### [facility] [address] [place] [address], [facility] RBC (Bld) [#/Vol] 3.45 10*6/uL Low 3.80-5.00 [facility] Comment on above: Order Comment: No: D o not add to previous draw Performed By: #### 8 5499 #### [facility] [address] [facility] [place] [address], [facility] WBC (Bld) [#/Vol] 8.08 10*3/uL Normal 4.00-10.60 [facility] Comment on above: Order Comment: No: D o not add to previous draw Performed By: #### 8 5499 #### [facility] [address] [place] [address], [place] MAGNESIUM BLOODon 03-27-2021 Magnesium [Mass/Vol] 1.9 mg/dL Normal 1.9-2.7 [facility] Comment on above: Order Comment: evalu ate Atelectasis Performed By: #### 0 0071, 09551 ####[facility] [place] [address], [facility] POC GLUCOSE LABon 03-27-2021 Glucose [Mass/Vol] 87 mg/dL Normal 70-100 [facility] Comment on above: Performed By: #### 3 1595 #### [facility] [address] [place] [address], [place] Glucose [Mass/Vol] 110 mg/dL High 70-100 [facility] Comment on above: Performed By: #### 8 5499 #### [facility] [address] [place] [address], [place] Glucose [Mass/Vol] 114 mg/dL High 70-100 [facility] Comment on above: Performed By: #### 8 5499 #### [facility] [address] [facility] [place] [address], [facility] PORTABLE CHEST 1 VIEWon 03-07 PORTABLE CHEST 1 VIEW [facility] Department of Radiology [address] [place] [address] Patient Name: THIAGO SABILLON : 1950 Sex: F Age: Race: White Pt. Location: [place] [address] Patient Status: I Ordered Date: 03/27/2021 5:00:00 [...] in lung bases persist. Electronically signed: Vernell Mcclure. Transcribed by: [email or web address], User Resident: Electronically Signed by: VERNELL MCCLURE @ 03/27/2021 07:43 AM Normal [facility] Comment on above: Order Comment: evalu ate Atelectasis BASIC METABOLIC PANELon 06-2 Calcium [Mass/Vol] 8.3 mg/dL Low 8.6-10.3 [facility] Comment on above: Order Comment: evalu ate Atelectasis Performed By: #### 0 0071, 02542 ####[facility] [place] [address], [place] Chloride [Moles/Vol] 102 mmol/L Normal 98-107 [facility] Comment on above: Order Comment: evalu ate Atelectasis Performed By: #### 0 0071, 16027 ####[facility] [place] [address], [place] CO2 [Moles/Vol] 31 mmol/L Normal 21-31 [facility] Comment on above: Order Comment: evalu ate Atelectasis Performed By: #### 0 0071, 74867 ####[facility] [place] [address], [facility] Creatinine [Mass/Vol] 0.50 mg/dL Low 0.60-1.20 [facility] Comment on above: Order Comment: evalu ate Atelectasis Performed By: #### 0 0071, 59001 ####[facility] [place] [address], [place] GFR/1.73 sq M.predicted among blacks MDRD (S/P/Bld) [Vol rate/Area] mL/min/{1.73_m2} Normal >60 [facility] Comment on above: Order Comment: evalu ate Atelectasis Performed By: #### 0 0071, 63582 ####[facility] [place] [address], [place] GFR/1.73 sq M.predicted among non-blacks MDRD (S/P/Bld) [Vol rate/Area] mL/min/{1.73_m2} Normal >60 [facility] Comment on above: Order Comment: evalu ate Atelectasis Performed By: #### 0 0071, 96674 ####[facility] [place] [address], [place] Glucose [Mass/Vol] 125 mg/dL High 70-100 [facility] Comment on above: Order Comment: evalu ate Atelectasis Performed By: #### 0 0071, 40770 ####[facility] [place] [address], [place] Potassium [Moles/Vol] 4.1 mmol/L Normal 3.5-5.1 [facility] Comment on above: Order Comment: evalu ate Atelectasis Performed By: #### 0 0071, 12628 ####[facility] [place] [address], [place] Sodium [Moles/Vol] 138 mmol/L Normal 136-145 [facility] Comment on above: Order Comment: evalu ate Atelectasis Performed By: #### 0 0071, 58272 ####[facility] [place] [address], [facility] Urea nitrogen [Mass/Vol] 18 mg/dL Normal 7-25 [facility] Comment on above: Order Comment: evalu ate Atelectasis Performed By: #### 0 0071, 10283 ####[facility] CBC COMPLETE BLOOD COUNTon 0 - Erythrocyte distribution width (RBC) [Ratio] 13.4 % Normal 11.5-15.0 [facility] Comment on above: Order Comment: No: D o not add to previous drawNurse draw Performed By: #### 8 5499 #### [facility] [address] [place] [address], [facility] Hematocrit (Bld) [Volume fraction] 29.3 % Low 36.0-45.0 [facility] Comment on above: Order Comment: No: D o not add to previous drawNurse draw Performed By: #### 8 5499 #### [facility] [address] [place] [address], [facility] Hemoglobin (Bld) [Mass/Vol] 9.2 g/dL Low 12.0-15.0 [facility] Comment on above: Order Comment: No: D o not add to previous drawNurse draw Performed By: #### 8 5499 #### [facility] [address] [place] [address], [place] MCH (RBC) [Entitic mass] 30.4 pg Normal 27.0-33.0 [facility] Comment on above: Order Comment: No: D o not add to previous drawNurse draw Performed By: #### 8 5499 #### [facility] [address] [place] [address], [place] MCHC (RBC) [Mass/Vol] 31.4 g/dL Low 32.0-35.0 [facility] Comment on above: Order Comment: No: D o not add to previous drawNurse draw Performed By: #### 8 5499 #### [facility] [address] [place] [address], [facility] MCV (RBC) [Entitic vol] 96.7 fL Normal 82.0-98.0 [facility] Comment on above: Order Comment: No: D o not add to previous drawNurse draw Performed By: #### 8 5499 #### [facility] [address] Nucleated RBC/100 WBC (Bld) [Ratio] 0 % Normal 0-0 [facility] Comment on above: Order Comment: No: D o not add to previous drawNurse draw Performed By: #### 8 5499 #### [facility] [address] [place] [address], [facility] PLAT CNT 223 10*3/uL Normal 150-400 [facility] Comment on above: Order Comment: No: D o not add to previous drawNurse draw Performed By: #### 8 5499 #### [facility] [address] [place] [address], [facility] RBC (Bld) [#/Vol] 3.03 10*6/uL Low 3.80-5.00 [facility] Comment on above: Order Comment: No: D o not add to previous drawNurse draw Performed By: #### 8 5499 #### [facility] [address] [place] [address], [facility] WBC (Bld) [#/Vol] 7.67 10*3/uL Normal 4.00-10.60 [facility] Comment on above: Order Comment: No: D o not add to previous drawNurse draw Performed By: #### 8 5499 #### [facility] [address] [place] [address], [facility] MAGNESIUM BLOODon 03-26-2021 Magnesium [Mass/Vol] 1.9 mg/dL Normal 1.9-2.7 [facility] Comment on above: Order Comment: evalu ate Atelectasis Performed By: #### 0 0071, 47647 ####[facility] [place] [address], [facility] POC GLUCOSE LABon 03-26-2021 Glucose [Mass/Vol] 81 mg/dL Normal 70-100 [facility] Comment on above: Performed By: #### 3 1595 #### [facility] [address] [facility] [place] [address], [facility] Glucose [Mass/Vol] 286 mg/dL High 70-100 [facility] Comment on above: Performed By: #### 8 5499 #### [facility] [address] [place] [address], [place] Glucose [Mass/Vol] 164 mg/dL High 70-100 [facility] Comment on above: Performed By: #### 5 0608 #### [facility] [address] [facility] [place] [address], [facility] PORTABLE CHEST 1 VIEWon 03-07 PORTABLE CHEST 1 VIEW [facility] Department of Radiology [address] [place] [address] Patient Name: THIAGO SABILLON DOB: 1950 Sex: F Age: Race: White Pt. Location: [place] [address] Patient Status: I Ordered Date: 03/26/2021 5:00:00 [...] and right mid lung. Electronically signed: Vernell Mcclure. Transcribed by: [email or web address], User Resident: Electronically Signed by: VERNELL MCCLURE @ 03/26/2021 06:40 AM Normal [facility] Comment on above: Order Comment: The A ptima SARS-CoV-2 assay is a nucleic acid amplification test intended for the qualitative detection of RNA from SARS-CoV-2 isolated and purified from nasopharyngeal (MID LEVEL BUSINESS ANALYST),oropharyngeal (OP), nasal swab, sputum, and bronchoalveolar lavage (BAL) specimens from patients with signs and symptoms of infection who are suspected of COVID-19. Results are for the identification of SARS-CoV-2 RNA. The SARS-CoV-2 RNA is generally detectable during the acute phase of infection. The Aptima SARS-CoV-2 Assay on the [employer] system is intended for use by laboratory personnel specifically instructed and trained in the operation of the [employer] system. The Aptima SARS-CoV-2 assay is [...] history, and epidemiological information. BASIC METABOLIC PANELon 06-2 -2020 Calcium [Mass/Vol] 8.3 mg/dL Low 8.6-10.3 [facility] Comment on above: Order Comment: No: D o not add to previous draw Performed By: #### 3 0965 #### [facility] [address] [place] [address], [place] Chloride [Moles/Vol] 99 mmol/L Normal 98-107 [facility] Comment on above: Order Comment: No: D o not add to previous draw Performed By: #### 3 0965 #### [facility] [address] [place] [address], [place] CO2 [Moles/Vol] 29 mmol/L Normal 21-31 [facility] Comment on above: Order Comment: No: D o not add to previous draw Performed By: #### 3 0965 #### [facility] [address] [place] [address], [place] Creatinine [Mass/Vol] 0.53 mg/dL Low 0.60-1.20 [facility] Comment on above: Order Comment: No: D o not add to previous draw Performed By: #### 3 0965 #### [facility] [address] [place] [address], [place] GFR/1.73 sq M.predicted among blacks MDRD (S/P/Bld) [Vol rate/Area] mL/min/{1.73_m2} Normal >60 [facility] Comment on above: Order Comment: No: D o not add to previous draw Performed By: #### 3 0965 #### [facility] [address] [place] [address], [place] GFR/1.73 sq M.predicted among non-blacks MDRD (S/P/Bld) [Vol rate/Area] mL/min/{1.73_m2} Normal >60 [facility] Comment on above: Order Comment: No: D o not add to previous draw Performed By: #### 3 0965 #### [facility] [address] [place] [address], [place] Glucose [Mass/Vol] 104 mg/dL High 70-100 [facility] Comment on above: Order Comment: No: D o not add to previous draw Performed By: #### 3 0965 #### [facility] [address] [place] [address], [place] Potassium [Moles/Vol] 4.1 mmol/L Normal 3.5-5.1 [facility] Comment on above: Order Comment: No: D o not add to previous draw Performed By: #### 3 0965 #### [facility] [address] [place] [address], [place] Sodium [Moles/Vol] 134 mmol/L Low 136-145 [facility] Comment on above: Order Comment: No: D o not add to previous draw Performed By: #### 3 0965 #### [facility] [address] [place] [address], [place] Urea nitrogen [Mass/Vol] 21 mg/dL Normal 7-25 [facility] Comment on above: Order Comment: No: D o not add to previous draw Performed By: #### 3 0965 #### [facility] [address] [place] [address], [place] CBC COMPLETE BLOOD COUNTon 0 6- Erythrocyte distribution width (RBC) [Ratio] 13.4 % Normal 11.5-15.0 [facility] Comment on above: Order Comment: No: D o not add to previous draw Performed By: #### 8 5499 #### [facility] [address] [place] [address], [place] Hematocrit (Bld) [Volume fraction] 28.4 % Low 36.0-45.0 [facility] Comment on above: Order Comment: No: D o not add to previous draw Performed By: #### 8 5499 #### [facility] [address] [place] [address], [facility] Hemoglobin (Bld) [Mass/Vol] 9.4 g/dL Low 12.0-15.0 [facility] Comment on above: Order Comment: No: D o not add to previous draw Performed By: #### 8 5499 #### [facility] [address] [place] [address], [facility] MCH (RBC) [Entitic mass] 31.0 pg Normal 27.0-33.0 [facility] Comment on above: Order Comment: No: D o not add to previous draw Performed By: #### 8 5499 #### [facility] [address] [place] [address], [facility] MCHC (RBC) [Mass/Vol] 33.1 g/dL Normal 32.0-35.0 [facility] Comment on above: Order Comment: No: D o not add to previous draw Performed By: #### 8 5499 #### [facility] [address] [place] [address], [facility] MCV (RBC) [Entitic vol] 93.7 fL Normal 82.0-98.0 [facility] Comment on above: Order Comment: No: D o not add to previous draw Performed By: #### 8 5499 #### [facility] [address] [place] [address], [facility] Nucleated RBC/100 WBC (Bld) [Ratio] 0 % Normal 0-0 [facility] Comment on above: Order Comment: No: D o not add to previous draw Performed By: #### 8 5499 #### [facility] [address] [place] [address], [facility] PLAT CNT 191 10*3/uL Normal 150-400 [facility] Comment on above: Order Comment: No: D o not add to previous draw Performed By: #### 8 5499 #### [facility] [address] [place] [address], [place] RBC (Bld) [#/Vol] 3.03 10*6/uL Low 3.80-5.00 [facility] Comment on above: Order Comment: No: D o not add to previous draw Performed By: #### 8 5499 #### [facility] [address] [place] [address], [place] WBC (Bld) [#/Vol] 9.57 10*3/uL Normal 4.00-10.60 [facility] Comment on above: Order Comment: No: D o not add to previous draw Performed By: #### 8 5499 #### [facility] [address] [place] [address], [facility] MAGNESIUM BLOODon 03-25-2021 Magnesium [Mass/Vol] 2.2 mg/dL Normal 1.9-2.7 [facility] Comment on above: Order Comment: No: D o not add to previous draw Performed By: #### 3 0965 #### [facility] [address] [place] [address], [facility] PHOSPHORUS BLOODon Phosphate [Mass/Vol] 2.6 mg/dL Normal 2.5-5.0 [facility] Comment on above: Order Comment: No: D o not add to previous draw Performed By: #### 3 0965 #### [facility] [address] [place] [address], [place] POC GLUCOSE LABon 03-25-2021 Glucose [Mass/Vol] 129 mg/dL High 70-100 [facility] Comment on above: Performed By: #### 8 5499 #### [facility] [address] [place] [address], [place] Glucose [Mass/Vol] 129 mg/dL High 70-100 [facility] Comment on above: Performed By: #### 5 0608 #### [address] PORTABLE CHEST 1 VIEWon 03-07 PORTABLE CHEST 1 VIEW [facility] Department of Radiology [address] [place] [address] [id number] Patient Name: THIAGO SABILLON DOB: 1950 Sex: F Age: Race: White Pt. Location: [place] [address] Patient Status: I Ordered Date: 03/25/2021 5:00:00 [...] effusion Electronically signed: Zina Brenner. Transcribed by: [email or web address], User Resident: Electronically Signed by: ZINA BRENNER @ 03/25/2021 08:07 AM Normal [facility] Comment on above: Order Comment: evalu ate for Pneumothorax TSH3 WITH REFLEX FT4on 03-25 TSH 3RD GENERATION 1.06 uIU/mL Normal 0.34-5.60 [facility] Comment on above: Order Comment: No: D o not add to previous draw Performed By: #### 3 0965 #### [facility] [address] [place] [address], [facility] BASIC METABOLIC PANELon 03-06 Calcium [Mass/Vol] 8.5 mg/dL Low 8.6-10.3 [facility] Comment on above: Order Comment: evalu ate Atelectasis Performed By: #### 1 69, 46012 ####[facility] [place] [address], [facility] Chloride [Moles/Vol] 100 mmol/L Normal 98-107 [facility] Comment on above: Order Comment: evalu ate Atelectasis Performed By: #### 1 69, 36388 ####[facility] [place] [id number], [place] CO2 [Moles/Vol] 27 mmol/L Normal 21-31 [facility] Comment on above: Order Comment: evalu ate Atelectasis Performed By: #### 1 69, 02320 ####[facility] [place] [address], [facility] Creatinine [Mass/Vol] 0.70 mg/dL Normal 0.60-1.20 [facility] Comment on above: Order Comment: evalu ate Atelectasis Performed By: #### 1 69, 36646 ####[facility] [place] [address], [place] GFR/1.73 sq M.predicted among blacks MDRD (S/P/Bld) [Vol rate/Area] mL/min/{1.73_m2} Normal >60 [facility] Comment on above: Order Comment: evalu ate Atelectasis Performed By: #### 1 69, 32615 ####[facility] [place] [address], [place] GFR/1.73 sq M.predicted among non-blacks MDRD (S/P/Bld) [Vol rate/Area] mL/min/{1.73_m2} Normal >60 [facility] Comment on above: Order Comment: evalu ate Atelectasis Performed By: #### 1 69, 84146 ####[facility] [place] [address], [place] Glucose [Mass/Vol] 122 mg/dL High 70-100 [facility] Comment on above: Order Comment: evalu ate Atelectasis Performed By: #### 1 69, 04848 ####[facility] [place] [address], [place] Potassium [Moles/Vol] 4.7 mmol/L Normal 3.5-5.1 [facility] Comment on above: Order Comment: evalu ate Atelectasis Performed By: #### 1 69, 73347 ####[facility] [place] [address], [place] Sodium [Moles/Vol] 133 mmol/L Low 136-145 [facility] Comment on above: Order Comment: evalu ate Atelectasis Performed By: #### 1 69, 68317 ####[facility] [place] [address], [place] Urea nitrogen [Mass/Vol] 30 mg/dL High 7-25 [facility] Comment on above: Order Comment: evalu ate Atelectasis Performed By: #### 1 0070, 34066 ####[facility] [facility] [place] [address], [facility] CBC COMPLETE BLOOD COUNTon 0 03-24-2021 Erythrocyte distribution width (RBC) [Ratio] 13.5 % Normal 11.5-15.0 [facility] Comment on above: Order Comment: No: D o not add to previous draw Nurse draw Performed By: #### 5 0608 #### [facility] [address] [place] [address], [facility] Hematocrit (Bld) [Volume fraction] 30.7 % Low 36.0-45.0 [facility] Comment on above: Order Comment: No: D o not add to previous draw Nurse draw Performed By: #### 5 0608 #### [facility] [address] [place] [address], [facility] Hemoglobin (Bld) [Mass/Vol] 10.0 g/dL Low 12.0-15.0 [facility] Comment on above: Order Comment: No: D o not add to previous draw Nurse draw Performed By: #### 5 0608 #### [facility] [address] [place] [address], [place] MCH (RBC) [Entitic mass] 30.7 pg Normal 27.0-33.0 [facility] Comment on above: Order Comment: No: D o not add to previous draw Nurse draw Performed By: #### 5 0608 #### [facility] [address] [place] [address], [place] MCHC (RBC) [Mass/Vol] 32.6 g/dL Normal 32.0-35.0 [facility] Comment on above: Order Comment: No: D o not add to previous draw Nurse draw Performed By: #### 5 0608 #### [facility] [address] [place] [address], [place] MCV (RBC) [Entitic vol] 94.2 fL Normal 82.0-98.0 [facility] Comment on above: Order Comment: No: D o not add to previous draw Nurse draw Performed By: #### 5 0608 #### [facility] [address] [place] [address], [facility] Nucleated RBC/100 WBC (Bld) [Ratio] 0 % Normal 0-0 [facility] Comment on above: Order Comment: No: D o not add to previous draw Nurse draw Performed By: #### 5 0608 #### [facility] [address] [place] [address], [place] PLAT CNT 214 10*3/uL Normal 150-400 [facility] Comment on above: Order Comment: No: D o not add to previous draw Nurse draw Performed By: #### 5 0608 #### [facility] [address] [place] [address], [facility] RBC (Bld) [#/Vol] 3.26 10*6/uL Low 3.80-5.00 [facility] Comment on above: Order Comment: No: D o not add to previous draw Nurse draw Performed By: #### 5 0608 #### [facility] [address] [place] [address], [facility] WBC (Bld) [#/Vol] 14.84 10*3/uL High 4.00-10.60 [facility] Comment on above: Order Comment: No: D o not add to previous draw Nurse draw Performed By: #### 5 0608 #### [facility] [address] [place] [address], [facility] MAGNESIUM BLOODon 03-24-2021 Magnesium [Mass/Vol] 2.4 mg/dL Normal 1.9-2.7 [facility] Comment on above: Order Comment: evalu ate Atelectasis Performed By: #### 1 0070, [id number] ####[facility] [facility] [place] [address], [place] POC GLUCOSE LABon 03-24-2021 Glucose [Mass/Vol] 168 mg/dL High 70-100 [facility] Comment on above: Performed By: #### 3 1595 #### [facility] [address] [facility] [place] [address], [facility] Glucose [Mass/Vol] 119 mg/dL High 70-100 [facility] Comment on above: Performed By: #### 3 1595 #### [facility] [address] [facility] [place] [address], [place] Glucose [Mass/Vol] 132 mg/dL High 70-100 [facility] Comment on above: Performed By: #### 3 1595 #### [facility] [address] [facility] [place] [address], [place] Glucose [Mass/Vol] 104 mg/dL High 70-100 [facility] Comment on above: Performed By: #### 8 5499 #### [facility] [address] [facility] [place] [address], [facility] PORTABLE CHEST 1 VIEWon 03-06 PORTABLE CHEST 1 VIEW [facility] Department of Radiology [address] [place] [address] [id number] Patient Name: THIAGO SABILLON : 1950 Sex: F Age: Race: White Pt. Location: [place] [address] Patient Status: I Ordered Date: 03/24/2021 6:30:00 [...] the same day FINDINGS: Current study is 1828 Heart valve marker again seen Right central [...] appropriate Electronically signed: Zina Brenner. Transcribed by: [email or web address], User Resident: Electronically Signed by: ZINA BRENNER @ 03/25/2021 07:16 AM Normal [facility] Comment on above: Order Comment: Evalu ate for Pneumothorax PORTABLE CHEST 1 VIEW [facility] Department of Radiology [address] [place] [address] Patient Name: THIAGO SABILLON : 1950 Sex: F Age: Race: White Pt. Location: [place] [address] Patient Status: I Ordered Date: 03/24/2021 5:00:00 [...] atelectasis. Electronically signed: Roque May. Transcribed by: [email or web address], User Resident: Electronically Signed by: ROQUE MAY @ 03/24/2021 08:02 AM Normal [facility] Comment on above: Order Comment: The A ptima SARS-CoV-2 assay is a nucleic acid amplification test intended for the qualitative detection of RNA from SARS-CoV-2 isolated and purified from nasopharyngeal (MID LEVEL BUSINESS ANALYST),oropharyngeal (OP), nasal swab, sputum, and bronchoalveolar lavage (BAL) specimens from patients with signs and symptoms of infection who are suspected of COVID-19. Results are for the identification of SARS-CoV-2 RNA. The SARS-CoV-2 RNA is generally detectable during the acute phase of infection. The Aptima SARS-CoV-2 Assay on the [employer] system is intended for use by laboratory personnel specifically instructed and trained in the operation of the [employer] system. The Aptima SARS-CoV-2 assay is [...] Coag (Bld) [Time] 33.6 s Normal 25.0-35.0 [facility] Comment on above: Order Comment: post [...] PURPOSE. Performed By: #### 8 [id number] #### [facility] [address] [place] [address], [facility] BASIC METABOLIC PANELon 03-06 Calcium [Mass/Vol] 8.3 mg/dL Low 8.6-10.3 [facility] Comment on above: Order Comment: post op day 1No: Do not add to previous draw Performed By: #### 3 0965 #### [facility] [address] [place] [address], [place] Chloride [Moles/Vol] 106 mmol/L Normal 98-107 [facility] Comment on above: Order Comment: post op day 1No: Do not add to previous draw Performed By: #### 3 0965 #### [facility] [address] [place] [address], [place] CO2 [Moles/Vol] 26 mmol/L Normal 21-31 [facility] Comment on above: Order Comment: post op day 1No: Do not add to previous draw Performed By: #### 3 0965 #### [facility] [address] [place] [address], [place] Creatinine [Mass/Vol] 0.45 mg/dL Low 0.60-1.20 [facility] Comment on above: Order Comment: post op day 1No: Do not add to previous draw Performed By: #### 3 0965 #### [facility] [address] [place] [address], [place] GFR/1.73 sq M.predicted among blacks MDRD (S/P/Bld) [Vol rate/Area] mL/min/{1.73_m2} Normal >60 [facility] Comment on above: Order Comment: post op day 1No: Do not add to previous draw Performed By: #### 3 0965 #### [facility] [address] [place] [address], [place] GFR/1.73 sq M.predicted among non-blacks MDRD (S/P/Bld) [Vol rate/Area] mL/min/{1.73_m2} Normal >60 [facility] Comment on above: Order Comment: post op day 1No: Do not add to previous draw Performed By: #### 3 0965 #### [facility] [address] [place] [address], [place] Glucose [Mass/Vol] 122 mg/dL High 70-100 [facility] Comment on above: Order Comment: post op day 1No: Do not add to previous draw Performed By: #### 3 0965 #### [facility] [address] [place] [address], [place] Potassium [Moles/Vol] 4.2 mmol/L Normal 3.5-5.1 [facility] Comment on above: Order Comment: post op day 1No: Do not add to previous draw Performed By: #### 3 0965 #### [facility] [address] [place] [address], [place] Sodium [Moles/Vol] 140 mmol/L Normal 136-145 [facility] Comment on above: Order Comment: post op day 1No: Do not add to previous draw Performed By: #### 3 0965 #### [facility] [address] [place] [id number], [facility] Urea nitrogen [Mass/Vol] 25 mg/dL Normal 7-25 [facility] Comment on above: Order Comment: post op day 1No: Do not add to previous draw Performed By: #### 3 0965 #### [facility] [address] [place] [address], [facility] CBC COMPLETE BLOOD COUNTon 0 - Erythrocyte distribution width (RBC) [Ratio] 13.4 % Normal 11.5-15.0 [facility] Comment on above: Order Comment: post op day 1No: Do not add to previous draw Performed By: #### 8 [id number] #### [facility] [address] [place] [address], [facility] Hematocrit (Bld) [Volume fraction] 31.2 % Low 36.0-45.0 [facility] Comment on above: Order Comment: post op day 1No: Do not add to previous draw Performed By: #### 8 5499 #### [facility] [address] [place] [address], [place] Hemoglobin (Bld) [Mass/Vol] 10.2 g/dL Low 12.0-15.0 [facility] Comment on above: Order Comment: post op day 1No: Do not add to previous draw Performed By: #### 8 5499 #### [facility] [address] [place] [address], [place] MCH (RBC) [Entitic mass] 31.2 pg Normal 27.0-33.0 [facility] Comment on above: Order Comment: post op day 1No: Do not add to previous draw Performed By: #### 8 [id number] #### [facility] [address] [place] [address], [place] MCHC (RBC) [Mass/Vol] 32.7 g/dL Normal 32.0-35.0 [facility] Comment on above: Order Comment: post op day 1No: Do not add to previous draw Performed By: #### 8 5499 #### [facility] [address] [place] [id number], [facility] MCV (RBC) [Entitic vol] 95.4 fL Normal 82.0-98.0 [facility] Comment on above: Order Comment: post op day 1No: Do not add to previous draw Performed By: #### 8 [id number] #### [facility] [address] [place] [address], [facility] Nucleated RBC/100 WBC (Bld) [Ratio] 0 % Normal 0-0 [facility] Comment on above: Order Comment: post op day 1No: Do not add to previous draw Performed By: #### 8 [id number] #### [facility] [address] [place] [id number], [place] PLAT CNT 168 10*3/uL Normal 150-400 [facility] Comment on above: Order Comment: post op day 1No: Do not add to previous draw Performed By: #### 8 [id number] #### [facility] [address] [place] [id number], [place] RBC (Bld) [#/Vol] 3.27 10*6/uL Low 3.80-5.00 [facility] Comment on above: Order Comment: post op day 1No: Do not add to previous draw Performed By: #### 8 [id number] #### [facility] [address] [place] [address], [place] WBC (Bld) [#/Vol] 13.20 10*3/uL High 4.00-10.60 [facility] Comment on above: Order Comment: post op day 1No: Do not add to previous draw Performed By: #### 8 [id number] #### [facility] [address] [place] [address], [facility] LACTATE BLOODon 03-23-2021 Lactate [Moles/Vol] 1.0 mmol/L Normal 0.5-2.2 [facility] Comment on above: Order Comment: post op day 1No: Do not add to previous draw Performed By: #### 3 0965 #### [facility] [address] [place] [address], [facility] MAGNESIUM BLOODon 03-23-2021 Magnesium [Mass/Vol] 2.1 mg/dL Normal 1.9-2.7 [facility] Comment on above: Order Comment: post op day 1No: Do not add to previous draw Performed By: #### 3 0965 #### [facility] [address] Operative Reporton Operative Report MR#: [id number] [facility] Pt. Name: Thiago Sabillon Room #: JESSICA [id number] Discharge Date: Birthdate: 1950 OPERATIVE REPORT DATE OF SURGERY: 03/22/2021 SURGEON: Chele Sanchez MD PREOPERATIVE DIAGNOSES: Severe mitral regurgitation, flail mitral valve posterior leaflet. POSTOPERATIVE DIAGNOSES: Severe mitral regurgitation, flail mitral valve posterior leaflet. OPERATIONS: 1. Minimally invasive video-assisted mitral valve repair with triangular resection of posterior scallop P2, #28 Physio ring annuloplasty. 2. Independent interpretation of transesophageal echocardiogram. MEDIA CENTER ASSISTANT: Juaquin. ANESTHESIA: General with endotracheal intubation. ANESTHESIOLOGIST: [...] P/Chele Sanchez MD Date Trans: 03/23/2021 12:26 A/haroono [id number] Normal [facility] POC GLUCOSE LABon 03-23-2021 Glucose [Mass/Vol] 125 mg/dL High 70-100 [facility] Comment on above: Performed By: #### 5 0608 #### [facility] [address] [place] [address], [place] Glucose [Mass/Vol] 147 mg/dL High 70-100 [facility] Comment on above: Performed By: #### 8 5499 #### [facility] [address] [facility] [place] [address], [place] Glucose [Mass/Vol] 128 mg/dL High 70-100 [facility] Comment on above: Performed By: #### 8 5499 #### [facility] [address] [place] [address], [place] Glucose [Mass/Vol] 102 mg/dL High 70-100 [facility] Comment on above: Performed By: #### 8 5499 #### [facility] [address] [place] [address], [place] Glucose [Mass/Vol] 115 mg/dL High 70-100 [facility] Comment on above: Performed By: #### 3 1595 #### [facility] [address] [place] [address], [place] Glucose [Mass/Vol] 91 mg/dL Normal 70-100 [facility] Comment on above: Performed By: #### 3 1595 #### [facility] [address] [place] [address], [facility] Glucose [Mass/Vol] 113 mg/dL High 70-100 [facility] Comment on above: Performed By: #### 3 1595 #### [facility] [address] [facility] [place] [address], [facility] PORTABLE CHEST 1 VIEWon 03-06 PORTABLE CHEST 1 VIEW [facility] Department of Radiology [address] [place] [address] Patient Name: THIAGO SABILLON : 1950 Sex: F Age: Race: White Pt. Location: [place] [address] Patient Status: I Ordered Date: 03/23/2021 7:00:00 [...] effusion in left base. Electronically signed: Vernell Mcclure. Transcribed by: [email or web address], User Resident: Electronically Signed by: VERNELL MCCLURE @ 03/23/2021 08:22 AM Normal [facility] Comment on above: Order Comment: The A ptima SARS-CoV-2 assay is a nucleic acid amplification test intended for the qualitative detection of RNA from SARS-CoV-2 isolated and purified from nasopharyngeal (MID LEVEL BUSINESS ANALYST),oropharyngeal (OP), nasal swab, sputum, and bronchoalveolar lavage (BAL) specimens from patients with signs and symptoms of infection who are suspected of COVID-19. Results are for the identification of SARS-CoV-2 RNA. The SARS-CoV-2 RNA is generally detectable during the acute phase of infection. The Aptima SARS-CoV-2 Assay on the [employer] system is intended for use by laboratory personnel specifically instructed and trained in the operation of the [employer] system. The Aptima SARS-CoV-2 assay is [...] [Relative time] 1.19 {INR} High 0.91-1.16 [facility] Comment on above: Order Comment: post op day 1No: Do not add to previous draw Result Comment: [facility] P RECOMMENDED INR FOR WARFARIN THERAPY -------- ------- CONDITION INR PROPHYLAXIS OF VENOUS THROMBOSIS 2-3 (HIGH-RISK SURGERY) TREATMENT OF VENOUS THROMBOSIS 2-3 TREATMENT OF PULMONARY EMBOLISM 2-3 PREVENTION OF SYSTEMIC EMBOLISM: 2-3 ACUTE MYOCARDIAL INFARCTION TISSUE HEART VALVES VALVULAR HEART DISEASE ATRIAL FIBRILLATION RECURRENT SYSTEMIC EMBOLISM MECHANICAL HEART VALVE 2.5-3.5 FROM: ORAL ANTICOAGULANTS. MECHANISM OF ACTION, CLINICAL EFFECTIVENESS, AND OPTIMAL THERAPEUTIC RANGE. CHEST 1995;108:231S-246S. Performed By: #### 8 [id number] #### [facility] [address] PT Coag (PPP) [Time] 15.2 s High 12.3-14.8 [facility] Comment on above: Order Comment: post op day 1No: Do not add to previous draw Result Comment: ALL RESULTS MUST BE INTERPRETED WITH RESPECT TO BLOOD DRAWING ARTIFACT OR DILUTION ERROR OF ANTICOAGULANT AT THE TIME OF SAMPLING. Performed By: #### 8 [id number] #### [facility] [address] [facility]. [address] *MRSA/MSSA DNA NASALon 03-22 *MRSA/MSSA DNA NASAL Clinical Report: (D ) Specimen: NASAL SWAB Collected: 03/22/2021 08:00 Status: Final Last Updated: 03/23/2021 17:18 MSSA DNA (Final) Negative MRSA DNA (Final) Negative Normal [facility] Comment on above: Performed By: #### 8 [id number] #### [facility] [address] [facility]. [address] ACTIVATED CLOTTING TIMEon ACTIVATED CLOTTING TIME 110 sec Normal 82-152 [facility] Comment on above: Performed By: #### 3 1792 #### [facility] [address] [facility] [place] [address], [place] ACTIVATED CLOTTING TIME 429 sec High 82-152 [facility] Comment on above: Performed By: #### 8 5499 #### [facility] [address] [place] [address], [place] ACTIVATED CLOTTING TIME 571 sec High 82-152 [facility] Comment on above: Performed By: #### 3 1792 #### [facility] [address] [place] [address], [place] ACTIVATED CLOTTING TIME 390 sec High 82-152 [facility] Comment on above: Performed By: #### 3 1792 #### [facility] [address] [place] [address], [place] ACTIVATED CLOTTING TIME 132 sec Normal 82-152 [facility] Comment on above: Performed By: #### 8 5499 #### [facility] [address] [place] [address], [facility] APTTon 03-22-2021 aPTT Coag (Bld) [Time] 29.5 s Normal 25.0-35.0 [facility] Comment on above: Order Comment: evalu [...] THIS PURPOSE. Performed By: #### 5 6101, [id number] ####[facility] [place] [address], [facility] aPTT Coag (Bld) [Time] 32.2 s Normal 25.0-35.0 [facility] Comment on above: Result Comment: ALL [...] PURPOSE. Performed By: #### 8 5499 #### [facility] [address] [place] [address], [facility] BASIC METABOLIC PANELon 06- Calcium [Mass/Vol] 8.2 mg/dL Low 8.6-10.3 [facility] Comment on above: Performed By: #### 3 6, 60860 ####[facility] [place] [address], [facility] Chloride [Moles/Vol] 108 mmol/L High 98-107 [facility] Comment on above: Performed By: #### 3 1045, 27207 ####[facility] [place] [address], [facility] CO2 [Moles/Vol] 26 mmol/L Normal 21-31 [facility] Comment on above: Performed By: #### 3 1045, 74251 ####[facility] [place] [address], [facility] Creatinine [Mass/Vol] 0.45 mg/dL Low 0.60-1.20 [facility] Comment on above: Performed By: #### 3 1045, 73484 ####[facility] [place] [address], [facility] GFR/1.73 sq M.predicted among blacks MDRD (S/P/Bld) [Vol rate/Area] mL/min/{1.73_m2} Normal >60 [facility] Comment on above: Performed By: #### 3 6, 01739 ####[facility] [facility] [id number], [facility] GFR/1.73 sq M.predicted among non-blacks MDRD (S/P/Bld) [Vol rate/Area] mL/min/{1.73_m2} Normal >60 [facility] Comment on above: Performed By: #### 3 1045, 38005 ####[facility] [place] [address], [place] Glucose [Mass/Vol] 135 mg/dL High 70-100 [facility] Comment on above: Performed By: #### 3 1045, 40571 ####[facility] [place] [address], [place] Potassium [Moles/Vol] 3.8 mmol/L Normal 3.5-5.1 [facility] Comment on above: Performed By: #### 3 1045, 93377 ####[facility] [place] [address], [place] Sodium [Moles/Vol] 141 mmol/L Normal 136-145 [facility] Comment on above: Performed By: #### 3 1045, 74717 ####[facility] [place] [address], [place] Urea nitrogen [Mass/Vol] 24 mg/dL Normal 7-25 [facility] Comment on above: Performed By: #### 3 1045, 11380 ####[facility] [place] [address], [place] Calcium [Mass/Vol] 8.4 mg/dL Low 8.6-10.3 [facility] Comment on above: Performed By: #### 8 5019 #### [facility] [address] [place] [address], [place] Chloride [Moles/Vol] 105 mmol/L Normal 98-107 [facility] Comment on above: Performed By: #### 8 771 #### [facility] [address] [place] [address], [place] CO2 [Moles/Vol] 28 mmol/L Normal 21-31 [facility] Comment on above: Performed By: #### 8 7019 #### [facility] [address] [place] [address], [place] Creatinine [Mass/Vol] 0.53 mg/dL Low 0.60-1.20 [facility] Comment on above: Performed By: #### 8 5499 #### [facility] [address] [place] [address], [place] GFR/1.73 sq M.predicted among blacks MDRD (S/P/Bld) [Vol rate/Area] mL/min/{1.73_m2} Normal >60 [facility] Comment on above: Performed By: #### 8 5499 #### [facility] [address] [place] [address], [place] GFR/1.73 sq M.predicted among non-blacks MDRD (S/P/Bld) [Vol rate/Area] mL/min/{1.73_m2} Normal >60 [facility] Comment on above: Performed By: #### 8 5499 #### [facility] [address] [place] [address], [place] Glucose [Mass/Vol] 151 mg/dL High 70-100 [facility] Comment on above: Performed By: #### 8 5499 #### [facility] [address] [place] [address], [place] Potassium [Moles/Vol] 3.9 mmol/L Normal 3.5-5.1 [facility] Comment on above: Performed By: #### 8 5499 #### [facility] [address] [place] [address], [place] Sodium [Moles/Vol] 140 mmol/L Normal 136-145 [facility] Comment on above: Performed By: #### 8 5499 #### [facility] [address] [place] [address], [place] Urea nitrogen [Mass/Vol] 25 mg/dL Normal 7-25 [facility] Comment on above: Performed By: #### 8 5499 #### [facility] [address] [place] [address], [facility] CARDIAC MAGNESIUM BLOODon Magnesium [Mass/Vol] 2.5 mg/dL Normal 1.9-2.7 [facility] Comment on above: Performed By: #### 3 1046, [id number] ####[facility] [facility] CBC COMPLETE BLOOD COUNTon 0 03-22-2021 Erythrocyte distribution width (RBC) [Ratio] 13.0 % Normal 11.5-15.0 [facility] Comment on above: Order Comment: No: D o not add to previous draw Performed By: #### 8 [id number] #### [facility] [address] [place] [address], [facility] Hematocrit (Bld) [Volume fraction] 32.1 % Low 36.0-45.0 [facility] Comment on above: Order Comment: No: D o not add to previous draw Performed By: #### 8 [id number] #### [facility] [address] [place] [address], [facility] Hemoglobin (Bld) [Mass/Vol] 10.2 g/dL Low 12.0-15.0 [facility] Comment on above: Order Comment: No: D o not add to previous draw Performed By: #### 8 [id number] #### [facility] [address] [place] [address], [facility] MCH (RBC) [Entitic mass] 30.4 pg Normal 27.0-33.0 [facility] Comment on above: Order Comment: No: D o not add to previous draw Performed By: #### 8 [id number] #### [facility] [address] [place] [address], [facility] MCHC (RBC) [Mass/Vol] 31.8 g/dL Low 32.0-35.0 [facility] Comment on above: Order Comment: No: D o not add to previous draw Performed By: #### 8 [id number] #### [facility] [address] [place] [address], [facility] MCV (RBC) [Entitic vol] 95.8 fL Normal 82.0-98.0 [facility] Comment on above: Order Comment: No: D o not add to previous draw Performed By: #### 8 [id number] #### [facility] [address] [place] [address], [facility] Nucleated RBC/100 WBC (Bld) [Ratio] 0 % Normal 0-0 [facility] Comment on above: Order Comment: No: D o not add to previous draw Performed By: #### 8 [id number] #### [facility] [address] [place] [address], [facility] PLAT CNT 155 10*3/uL Normal 150-400 [facility] Comment on above: Order Comment: No: D o not add to previous draw Performed By: #### 8 [id number] #### [facility] [address] [place] [address], [facility] RBC (Bld) [#/Vol] 3.35 10*6/uL Low 3.80-5.00 [facility] Comment on above: Order Comment: No: D o not add to previous draw Performed By: #### 8 [id number] #### [facility] [address] [place] [address], [facility] WBC (Bld) [#/Vol] 14.75 10*3/uL High 4.00-10.60 [facility] Comment on above: Order Comment: No: D o not add to previous draw Performed By: #### 8 [id number] #### [facility] [address] [place] [address], [facility] CBC W/DIFFon 03-22-2021 ABS IMM GRANS 0.1 10*3/uL Normal 0.0-0.2 [facility] Comment on above: Performed By: #### 8 [id number] #### [facility] [address] [facility] [place] [address], [facility] ABS NEUTROPHILS 10.5 10*3/uL High 1.6-7.6 [facility] Comment on above: Performed By: #### 8 [id number] #### [facility] [address] [facility] [place] [address], [facility] Basophils (Bld) [#/Vol] 0.0 10*3/uL Normal 0.0-0.2 [facility] Comment on above: Performed By: #### 8 [id number] #### [facility] [address] [place] [address], [facility] Basophils/100 WBC (Bld) 0.2 % Normal 0.0-1.0 [facility] Comment on above: Performed By: #### 8 [id number] #### [facility] [address] [place] [address], [facility] Eosinophils (Bld) [#/Vol] 0.1 10*3/uL Normal 0.0-0.5 [facility] Comment on above: Performed By: #### 8 [id number] #### [facility] [address] [place] [address], [facility] Eosinophils/100 WBC (Bld) 0.5 % Normal 0.0-6.0 [facility] Comment on above: Performed By: #### 8 [id number] #### [facility] [address] [facility]. [address] Erythrocyte distribution width (RBC) [Ratio] 13.0 % Normal 11.5-15.0 [facility] Comment on above: Performed By: #### 8 [id number] #### [facility] [address] [facility] [place] [address], [facility] Hematocrit (Bld) [Volume fraction] 27.3 % Low 36.0-45.0 [facility] Comment on above: Performed By: #### 8 [id number] #### [facility] [address] [place] [address], [facility] Hemoglobin (Bld) [Mass/Vol] 9.1 g/dL Low 12.0-15.0 [facility] Comment on above: Performed By: #### 8 [id number] #### [facility] [address] [place] [address], [facility] IMMATURE GRANS 0.9 % Normal 0.0-1.0 [facility] Comment on above: Performed By: #### 8 [id number] #### [facility] [address] [place] [address], [facility] Lymphocytes (Bld) [#/Vol] 1.7 10*3/uL Normal 1.2-4.0 [facility] Comment on above: Performed By: #### 8 [id number] #### [facility] [address] [place] [address], [facility] Lymphocytes/100 WBC (Bld) 13.2 % Low 20.0-45.0 [facility] Comment on above: Performed By: #### 8 [id number] #### [facility] [address] [place] [address], [facility] MCH (RBC) [Entitic mass] 31.0 pg Normal 27.0-33.0 [facility] Comment on above: Performed By: #### 8 [id number] #### [facility] [address] [place] [address], [facility] MCHC (RBC) [Mass/Vol] 33.3 g/dL Normal 32.0-35.0 [facility] Comment on above: Performed By: #### 8 [id number] #### [facility] [address] [place] [address], [facility] MCV (RBC) [Entitic vol] 92.9 fL Normal 82.0-98.0 [facility] Comment on above: Performed By: #### 8 [id number] #### [facility] [address] [facility] [place] [address], [facility] Monocytes (Bld) [#/Vol] 0.7 10*3/uL Normal 0.1-1.0 [facility] Comment on above: Performed By: #### 8 [id number] #### [facility] [address] [place] [id number], [facility] MONOS 5.4 % Normal 5.0-12.0 [facility] Comment on above: Performed By: #### 8 [id number] #### [facility] [address] [facility] [place] [address], [facility] Neutrophils/100 WBC (Bld) 79.8 % High 40.0-72.0 [facility] Comment on above: Performed By: #### 8 [id number] #### [facility] [address] [facility] [place] [address], [facility] Nucleated RBC/100 WBC (Bld) [Ratio] 0 % Normal 0-0 [facility] Comment on above: Performed By: #### 8 [id number] #### [facility] [address] [facility] [place] [address], [facility] PLAT CNT 142 10*3/uL Low 150-400 [facility] Comment on above: Performed By: #### 8 [id number] #### [facility] [address] [facility] [place] [address], [facility] RBC (Bld) [#/Vol] 2.94 10*6/uL Low 3.80-5.00 [facility] Comment on above: Performed By: #### 8 [id number] #### [facility] [address] [facility] [place] [address], [facility] WBC (Bld) [#/Vol] 13.20 10*3/uL High 4.00-10.60 [facility] Comment on above: Performed By: #### 8 [id number] #### [facility] [address] [facility] [place] [address], [facility] FIBRINOGENon 03-22-2021 FIBRINOGEN 242 mg/dL Normal 150-425 [facility] Comment on above: Performed By: #### 8 [id number] #### [facility] [address] [place] [address], [facility] LACTATE BLOODon 03-22-2021 Lactate [Moles/Vol] 0.6 mmol/L Normal 0.5-2.2 [facility] Comment on above: Order Comment: No: D o not add to previous draw Performed By: #### 3 0965 #### [facility] [address] [place] [address], [facility] Lactate [Moles/Vol] 0.9 mmol/L Normal 0.5-2.2 [facility] Comment on above: Performed By: #### 1 0054 ####[facility] [place] [address], [facility] MAGNESIUM BLOODon 03-22-2021 Magnesium [Mass/Vol] 3.7 mg/dL High 1.9-2.7 [facility] Comment on above: Performed By: #### 8 [id number] #### [facility] [address] [place] [address], [facility] PERFUSION BLOOD PANELon 03-06 BASE EXCESS 2.0 mmol/L Normal -2.0-3.0 [facility] Comment on above: Performed By: #### 8 [id number] #### [facility] [address] [place] [address], [facility] Glucose [Mass/Vol] 158 mg/dL High 70-105 [facility] Comment on above: Performed By: #### 8 [id number] #### [facility] [address] [place] [address], [facility] Hematocrit (Bld) [Volume fraction] 25 % Low 38-51 [facility] Comment on above: Performed By: #### 8 [id number] #### [facility] [address] [place] [address], [facility] Hemoglobin (Bld) [Mass/Vol] 8.5 g/dL Low 12.0-17.0 [facility] Comment on above: Performed By: #### 8 [id number] #### [facility] [address] [place] [address], [place] IONIZED CALCIUM 1.30 mmol/L Normal 1.12-1.32 [facility] Comment on above: Performed By: #### 8 [id number] #### [facility] [address] [place] [address], [facility] Oxygen (Bld) [Partial pressure] 173.0 mm[Hg] High 80.0-105.0 [facility] Comment on above: Performed By: #### 8 [id number] #### [facility] [address] [place] [address], [facility] PCO2 39.5 mmHg Normal 35.0-45.0 [facility] Comment on above: Performed By: #### 8 [id number] #### [facility] [address] [place] [address], [place] pH (Bld) 7.44 [pH] Normal 7.35-7.45 [facility] Comment on above: Performed By: #### 8 [id number] #### [facility] [address] [place] [address], [place] Potassium [Moles/Vol] 4.0 mmol/L Normal 3.5-4.9 [facility] Comment on above: Performed By: #### 8 [id number] #### [facility] [address] [place] [address], [place] Sodium [Moles/Vol] 138 mmol/L Normal 138-146 [facility] Comment on above: Performed By: #### 8 [id number] #### [facility] [address] [place] [address], [place] BASE EXCESS 2.0 mmol/L Normal -2.0-3.0 [facility] Comment on above: Performed By: #### 3 1791 #### [facility] [address] [place] [address], [facility] Glucose [Mass/Vol] 159 mg/dL High 70-105 [facility] Comment on above: Performed By: #### 3 1791 #### [facility] [address] [place] [address], [facility] Hematocrit (Bld) [Volume fraction] 21 % Low 38-51 [facility] Comment on above: Performed By: #### 3 1791 #### [facility] [address] [place] [address], [facility] Hemoglobin (Bld) [Mass/Vol] 7.1 g/dL Low 12.0-17.0 [facility] Comment on above: Performed By: #### 3 1791 #### [facility] [address] [place] [address], [facility] IONIZED CALCIUM 1.29 mmol/L Normal 1.12-1.32 [facility] Comment on above: Performed By: #### 3 1791 #### [facility] [address] [place] [address], [facility] Oxygen (Bld) [Partial pressure] 175.0 mm[Hg] High 80.0-105.0 [facility] Comment on above: Performed By: #### 3 1791 #### [facility] [address] [place] [address], [facility] PCO2 38.9 mmHg Normal 35.0-45.0 [facility] Comment on above: Performed By: #### 3 1791 #### [facility] [address] [place] [address], [facility] pH (Bld) 7.44 [pH] Normal 7.35-7.45 [facility] Comment on above: Performed By: #### 3 1791 #### [facility] [address] [place] [address], [facility] Potassium [Moles/Vol] 4.0 mmol/L Normal 3.5-4.9 [facility] Comment on above: Performed By: #### 3 1791 #### [facility] [address] [place] [address], [place] Sodium [Moles/Vol] 138 mmol/L Normal 138-146 [facility] Comment on above: Performed By: #### 3 1791 #### [facility] [address] [place] [address], [place] BASE EXCESS 4.0 mmol/L High -2.0-3.0 [facility] Comment on above: Performed By: #### 3 1791 #### [facility] [address] [place] [address], [place] Glucose [Mass/Vol] 160 mg/dL High 70-105 [facility] Comment on above: Performed By: #### 3 1791 #### [facility] [address] [place] [address], [place] Hematocrit (Bld) [Volume fraction] 26 % Low 38-51 [facility] Comment on above: Performed By: #### 3 1791 #### [facility] [address] [place] [address], [place] Hemoglobin (Bld) [Mass/Vol] 8.8 g/dL Low 12.0-17.0 [facility] Comment on above: Performed By: #### 3 1791 #### [facility] [address] [place] [address], [place] IONIZED CALCIUM 1.00 mmol/L Low 1.12-1.32 [facility] Comment on above: Performed By: #### 3 1791 #### [facility] [address] [place] [address], [place] Oxygen (Bld) [Partial pressure] 411.0 mm[Hg] High 80.0-105.0 [facility] Comment on above: Performed By: #### 3 1791 #### [facility] [address] [place] [address], [facility] PCO2 54.4 mmHg High 35.0-45.0 [facility] Comment on above: Performed By: #### 3 1791 #### [facility] [address] [place] [address], [facility] pH (Bld) 7.36 [pH] Normal 7.35-7.45 [facility] Comment on above: Performed By: #### 3 1791 #### [facility] [address] [place] [address], [facility] Potassium [Moles/Vol] 4.3 mmol/L Normal 3.5-4.9 [facility] Comment on above: Performed By: #### 3 1791 #### [facility] [address] [place] [address], [facility] Sodium [Moles/Vol] 137 mmol/L Low 138-146 [facility] Comment on above: Performed By: #### 3 1791 #### [facility] [address] [place] [address], [facility] BASE EXCESS 1.0 mmol/L Normal -2.0-3.0 [facility] Comment on above: Performed By: #### 3 1791 #### [facility] [address] [place] [address], [facility] Glucose [Mass/Vol] 121 mg/dL High 70-105 [facility] Comment on above: Performed By: #### 3 1791 #### [facility] [address] [place] [address], [facility] Hematocrit (Bld) [Volume fraction] 22 % Low 38-51 [facility] Comment on above: Performed By: #### 3 1791 #### [facility] [address] [place] [address], [facility] Hemoglobin (Bld) [Mass/Vol] 7.5 g/dL Low 12.0-17.0 [facility] Comment on above: Performed By: #### 3 1791 #### [facility] [address] [place] [address], [place] IONIZED CALCIUM 0.98 mmol/L Low 1.12-1.32 [facility] Comment on above: Performed By: #### 3 1791 #### [facility] [address] [place] [address], [facility] Oxygen (Bld) [Partial pressure] 40.0 mm[Hg] Normal [facility] Comment on above: Performed By: #### 3 1791 #### [facility] [address] [place] [address], [facility] PCO2 45.9 mmHg Normal 41.0-51.0 [facility] Comment on above: Performed By: #### 3 1791 #### [facility] [address] [place] [address], [place] pH (Bld) 7.38 [pH] Normal 7.31-7.41 [facility] Comment on above: Performed By: #### 3 1791 #### [facility] [address] [place] [address], [place] Potassium [Moles/Vol] 4.6 mmol/L Normal 3.5-4.9 [facility] Comment on above: Performed By: #### 3 1791 #### [facility] [address] [place] [address], [place] Sodium [Moles/Vol] 137 mmol/L Low 138-146 [facility] Comment on above: Performed By: #### 3 1791 #### [facility] [address] [place] [address], [place] BASE EXCESS 4.0 mmol/L High -2.0-3.0 [facility] Comment on above: Performed By: #### 8 [id number] #### [facility] [address] [place] [address], [facility] Glucose [Mass/Vol] 107 mg/dL High 70-105 [facility] Comment on above: Performed By: #### 8 [id number] #### [facility] [address] [place] [address], [facility] Hematocrit (Bld) [Volume fraction] 24 % Low 38-51 [facility] Comment on above: Performed By: #### 8 [id number] #### [facility] [address] [place] [address], [facility] Hemoglobin (Bld) [Mass/Vol] 8.2 g/dL Low 12.0-17.0 [facility] Comment on above: Performed By: #### 8 [id number] #### [facility] [address] [facility] [place] [address], [facility] IONIZED CALCIUM 0.98 mmol/L Low 1.12-1.32 [facility] Comment on above: Performed By: #### 8 [id number] #### [facility] [address] [facility] [place] [address], [facility] Oxygen (Bld) [Partial pressure] 424.0 mm[Hg] High 80.0-105.0 [facility] Comment on above: Performed By: #### 8 [id number] #### [facility] [address] [place] [address], [facility] PCO2 47.6 mmHg High 35.0-45.0 [facility] Comment on above: Performed By: #### 8 [id number] #### [facility] [address] [place] [address], [facility] pH (Bld) 7.40 [pH] Normal 7.35-7.45 [facility] Comment on above: Performed By: #### 8 [id number] #### [facility] [address] [place] [address], [facility] Potassium [Moles/Vol] 3.6 mmol/L Normal 3.5-4.9 [facility] Comment on above: Performed By: #### 8 [id number] #### [facility] [address] [place] [address], [place] Sodium [Moles/Vol] 138 mmol/L Normal 138-146 [facility] Comment on above: Performed By: #### 8 [id number] #### [facility] [address] [place] [address], [facility] BASE EXCESS 3.0 mmol/L Normal -2.0-3.0 [facility] Comment on above: Performed By: #### 3 1791 #### [facility] [address] [place] [address], [place] Glucose [Mass/Vol] 116 mg/dL High 70-105 [facility] Comment on above: Performed By: #### 3 1791 #### [facility] [address] [place] [address], [place] Hematocrit (Bld) [Volume fraction] 31 % Low 38-51 [facility] Comment on above: Performed By: #### 3 1791 #### [facility] [address] [place] [address], [place] Hemoglobin (Bld) [Mass/Vol] 10.5 g/dL Low 12.0-17.0 [facility] Comment on above: Performed By: #### 3 1791 #### [facility] [address] [place] [address], [place] IONIZED CALCIUM 1.14 mmol/L Normal 1.12-1.32 [facility] Comment on above: Performed By: #### 3 1791 #### [facility] [address] [place] [address], [place] Oxygen (Bld) [Partial pressure] 296.0 mm[Hg] High 80.0-105.0 [facility] Comment on above: Performed By: #### 3 1792 #### [facility] [address] [place] [address], [facility] PCO2 39.1 mmHg Normal 35.0-45.0 [facility] Comment on above: Performed By: #### 3 1792 #### [facility] [address] [place] [address], [facility] pH (Bld) 7.45 [pH] Normal 7.35-7.45 [facility] Comment on above: Performed By: #### 3 1791 #### [facility] [address] [place] [address], [facility] Potassium [Moles/Vol] 3.5 mmol/L Normal 3.5-4.9 [facility] Comment on above: Performed By: #### 3 2 #### [facility] [address] [place] [address], [facility] Sodium [Moles/Vol] 139 mmol/L Normal 138-146 [facility] Comment on above: Performed By: #### 3 2 #### [facility] [address] [place] [address], [facility] BASE EXCESS 3.0 mmol/L Normal -2.0-3.0 [facility] Comment on above: Performed By: #### 3 0738 #### [facility] [address] [place] [address], [facility] Glucose [Mass/Vol] 107 mg/dL High 70-105 [facility] Comment on above: Performed By: #### 3 0738 #### [facility] [address] [place] [address], [facility] Hematocrit (Bld) [Volume fraction] 33 % Low 38-51 [facility] Comment on above: Performed By: #### 3 0738 #### [facility] [address] [place] [address], [place] Hemoglobin (Bld) [Mass/Vol] 11.2 g/dL Low 12.0-17.0 [facility] Comment on above: Performed By: #### 3 0738 #### [facility] [address] [place] [address], [place] IONIZED CALCIUM 1.16 mmol/L Normal 1.12-1.32 [facility] Comment on above: Performed By: #### 3 0738 #### [facility] [address] [place] [address], [facility] Oxygen (Bld) [Partial pressure] 234.0 mm[Hg] High 80.0-105.0 [facility] Comment on above: Performed By: #### 3 0738 #### [facility] [address] [place] [address], [facility] PCO2 41.9 mmHg Normal 35.0-45.0 [facility] Comment on above: Performed By: #### 3 0738 #### [facility] [address] [place] [address], [facility] pH (Bld) 7.42 [pH] Normal 7.35-7.45 [facility] Comment on above: Performed By: #### 3 0738 #### [facility] [address] [place] [address], [place] Potassium [Moles/Vol] 3.8 mmol/L Normal 3.5-4.9 [facility] Comment on above: Performed By: #### 3 0738 #### [facility] [address] [place] [address], [place] Sodium [Moles/Vol] 138 mmol/L Normal 138-146 [facility] Comment on above: Performed By: #### 3 0738 #### [facility] [address] [place] [address], [place] POC GLUCOSE LABon 03-22-2021 Glucose [Mass/Vol] 117 mg/dL High 70-100 [facility] Comment on above: Performed By: #### 3 1595 #### [facility] [address] [facility] [address], [facility] Glucose [Mass/Vol] 110 mg/dL High 70-100 [facility] Comment on above: Performed By: #### 8 [id number] #### [facility] [address] [facility]. [place], [place] [address], [place] Glucose [Mass/Vol] 143 mg/dL High 70-100 [facility] Comment on above: Performed By: #### 8 [id number] #### [facility] [address] [facility] [place] [address], [place] Glucose [Mass/Vol] 169 mg/dL High 70-100 [facility] Comment on above: Performed By: #### 5 [id number] #### [facility] [address] [facility] [place] [address], [facility] Glucose [Mass/Vol] 88 mg/dL Normal 70-100 [facility] Comment on above: Performed By: #### 3 1595 #### [facility] [address] [facility] [place] [address], [facility] PORTABLE CHEST 1 VIEWon 03-06 PORTABLE CHEST 1 VIEW [facility] Department of Radiology [address] [place] [id number] Patient Name: THIAGO SABILLON : 1950 Sex: F Age: Race: White Pt. Location: [place] [address] Patient Status: I Ordered Date: 03/22/2021 12:30:00 [...] appropriate Electronically signed: Zina Brenner. Transcribed by: [email or web address], User Resident: Electronically Signed by: ZINA BRENNER @ 03/22/2021 01:42 PM Normal [facility] Comment on above: Order Comment: Check Chest Tube Position, ON ARRIVAL TO CVU PROTHROMBIN TIMEon INR Coag (PPP) [Relative time] 1.22 {INR} High 0.91-1.16 [facility] Comment on above: Order Comment: No: D o not add to previous draw Result Comment: ACCC P RECOMMENDED INR FOR WARFARIN THERAPY -------- ------- CONDITION INR PROPHYLAXIS OF VENOUS THROMBOSIS 2-3 (HIGH-RISK SURGERY) TREATMENT OF VENOUS THROMBOSIS 2-3 TREATMENT OF PULMONARY EMBOLISM 2-3 PREVENTION OF SYSTEMIC EMBOLISM: 2-3 ACUTE MYOCARDIAL INFARCTION TISSUE HEART VALVES VALVULAR HEART DISEASE ATRIAL FIBRILLATION RECURRENT SYSTEMIC EMBOLISM MECHANICAL HEART VALVE 2.5-3.5 FROM: ORAL ANTICOAGULANTS. MECHANISM OF ACTION, CLINICAL EFFECTIVENESS, AND OPTIMAL THERAPEUTIC RANGE. CHEST 1995;108:231S-246S. Performed By: #### 8 [id number] #### [facility] [address] PT Coag (PPP) [Time] 15.4 s High 12.3-14.8 [facility] Comment on above: Order Comment: No: D o not add to previous draw Result Comment: ALL RESULTS MUST BE INTERPRETED WITH RESPECT TO BLOOD DRAWING ARTIFACT OR DILUTION ERROR OF ANTICOAGULANT AT THE TIME OF SAMPLING. Performed By: #### 8 [id number] #### [facility] [address] INR Coag (PPP) [Relative time] 1.48 {INR} High 0.91-1.16 [facility] Comment on above: Result Comment: ACCC P RECOMMENDED INR FOR WARFARIN THERAPY -------- ------- CONDITION INR PROPHYLAXIS OF VENOUS THROMBOSIS 2-3 (HIGH-RISK SURGERY) TREATMENT OF VENOUS THROMBOSIS 2-3 TREATMENT OF PULMONARY EMBOLISM 2-3 PREVENTION OF SYSTEMIC EMBOLISM: 2-3 ACUTE MYOCARDIAL INFARCTION TISSUE HEART VALVES VALVULAR HEART DISEASE ATRIAL FIBRILLATION RECURRENT SYSTEMIC EMBOLISM MECHANICAL HEART VALVE 2.5-3.5 FROM: ORAL ANTICOAGULANTS. MECHANISM OF ACTION, CLINICAL EFFECTIVENESS, AND OPTIMAL THERAPEUTIC RANGE. CHEST 1995;108:231S-246S. Performed By: #### 8 [id number] #### [facility] [address] PT Coag (PPP) [Time] 18.0 s High 12.3-14.8 [facility] Comment on above: Result Comment: ALL RESULTS MUST BE INTERPRETED WITH RESPECT TO BLOOD DRAWING ARTIFACT OR DILUTION ERROR OF ANTICOAGULANT AT THE TIME OF SAMPLING. Performed By: #### 8 [id number] #### [facility] [address] [facility] Pulmonary Functionon 021 Pulmonary Function MR #: [id number] [facility] PT. Name: Thiago Sabillon Date: 03/20/2021 Date of : 1950 Patient [...] by: Justino Begum MD 03/22/2021 03:31 P ____ Justino Begum MD [facility] Care [facility] Sleep Medicine Date Dict: 03/22/2021/01:57 P/Justino Begum MD Date Trans: 03/22/2021 01:57 P/ [id number] cc: Balta Jane M.D. [address] [place] [address] Normal [facility] RBC'S 2 UNITSon 03-22-2021 CROSSMATCH INTERP 1 COMP Normal [facility] Comment on above: Performed By: #### 8 [id number] #### [facility] [address] [place] [address], [facility] CROSSMATCH INTERP 2 COMP Normal [facility] Comment on above: Performed By: #### 8 [id number] #### [facility] [address] [place] [address], [facility] PRODUCT CODE 1 E0336 Normal [facility] Comment on above: Performed By: #### 8 [id number] #### [facility] [address] [place] [address], [facility] PRODUCT CODE 2 E0336 Normal [facility] Comment on above: Performed By: #### 8 [id number] #### [facility] [address] [place] [address], [facility] PRODUCT STATUS 1 RE Normal [facility] Comment on above: Result Comment: Resu lt changed by IF on 03/22/2021 09:49. The previous value was XM. Result changed by IF on 03/22/2021 12:46. The previous value was IS. Result changed by IF on 03/25/2021 06:46. The previous value was XM. Performed By: #### 8 [id number] #### [facility] [address] [place] [address], [facility] PRODUCT STATUS 2 RE Normal [facility] Comment on above: Result Comment: Resu lt changed by IF on 03/22/2021 09:49. The previous value was XM. Result changed by IF on 03/22/2021 12:46. The previous value was IS. Result changed by IF on 03/25/2021 06:46. The previous value was XM. Performed By: #### 8 [id number] #### [facility] [address] [place] [address], [facility] UNIT ABO 1 A Normal [facility] Comment on above: Performed By: #### 8 [id number] #### [facility] [address] [place] [address], [facility] UNIT ABO 2 A Normal [facility] Comment on above: Performed By: #### 8 [id number] #### [facility] [address] [place] [address], [facility] UNIT ID 1 [id number] Normal [facility] Comment on above: Performed By: #### 8 [id number] #### [facility] [address] [place] [address], [facility] UNIT ID 2 [id number] Normal [facility] Comment on above: Performed By: #### 8 [id number] #### [facility] [address] [place] [address], [facility] UNIT RH 1 Positive Normal [facility] Comment on above: Performed By: #### 8 [id number] #### [facility] [address] [place] [address], [facility] UNIT RH 2 Positive Normal [facility] Comment on above: Performed By: #### 8 [id number] #### [facility] [address] *MRSA/MSSA DNA NASALon 03-20 *MRSA/MSSA DNA NASAL Clinical Report: (D ) Specimen: NASAL SWAB Collected: 03/20/2021 13:16 Status: Final Last Updated: 03/21/2021 15:36 MSSA DNA (Final) Negative MRSA DNA (Final) Negative Normal [facility] Comment on above: Performed By: #### 3 1595 #### [facility] [address] [facility] [place] [address], [facility] *SARS-CoV-2 COVID-19on 03-20 SARS-CoV-2 (COVID-19) RNA GÓMEZ+probe Ql (Unsp spec) Not detected Normal Not Detected [facility] Comment on above: Order Comment: The A ptima SARS-CoV-2 assay is a nucleic acid amplification test intended for the qualitative detection of RNA from SARS-CoV-2 isolated and purified from nasopharyngeal (MID LEVEL BUSINESS ANALYST),oropharyngeal (OP), nasal swab, sputum, and bronchoalveolar lavage (BAL) specimens from patients with signs and symptoms of infection who are suspected of COVID-19. Results are for the identification of SARS-CoV-2 RNA. The SARS-CoV-2 RNA is generally detectable during the acute phase of infection. The Aptima SARS-CoV-2 Assay on the Optimata and Optimata Fusion system is intended for use by laboratory personnel specifically instructed and trained in the operation of the [place] and Optimata Fusion system. The Aptima SARS-CoV-2 assay is [...] information. Performed By: #### 3 [id number] #### [facility] [address] [place], [place] [address] APTTon 03-20-2021 aPTT Coag (Bld) [Time] 34.1 s Normal 25.0-35.0 [facility] Comment on above: Result Comment: ALL [...] PURPOSE. Performed By: #### 8 [id number] #### [facility] [address] [facility]. [address] ARTERIAL BLOOD GAS W/COOXon 03-20-2021 BASE EXCESS 5 mmol/L High -2-3 [facility] Comment on above: Performed By: #### 8 [id number] #### [facility] [address] [facility] [place] [address], [facility] COHB 0.8 % Normal 0.0-1.5 [facility] Comment on above: Performed By: #### 8 [id number] #### [facility] [address] [facility]. [address] FIO2 21 % Normal [facility] Comment on above: Performed By: #### 8 [id number] #### [facility] [address] [facility]. [address] HCO3 (Bld) [Moles/Vol] 28 mmol/L Normal 21-28 [facility] Comment on above: Performed By: #### 8 [id number] #### [facility] [address] [facility] [place] [address], [facility] METHB 0.8 % Normal 0.0-1.5 [facility] Comment on above: Performed By: #### 8 [id number] #### [facility] [address] [facility]. [address] Oxygen (Bld) [Partial pressure] 116 mm[Hg] Critically high 83-108 [facility] Comment on above: Performed By: #### 8 [id number] #### [facility] [address] [facility] [place] [address], [facility] Oxygen saturation in Blood 97.0 % Normal 94.0-97.0 [facility] Comment on above: Performed By: #### 8 [id number] #### [facility] [address] [facility]. [address] PCO2 36 mmHg Normal 35-45 [facility] Comment on above: Performed By: #### 8 [id number] #### [facility] [address] [place] [address], [facility] pH (Bld) 7.50 [pH] High 7.35-7.45 [facility] Comment on above: Performed By: #### 8 [id number] #### [facility] [address] THB 13.1 g/dL Normal 12.0-16.3 [facility] Comment on above: Performed By: #### 8 [id number] #### [facility] [address] CBC W/DIFFon 03-20-2021 ABS IMM GRANS 0.0 10*3/uL Normal 0.0-0.2 [facility] Comment on above: Performed By: #### 8 [id number] #### [facility] [address] ABS NEUTROPHILS 4.5 10*3/uL Normal 1.6-7.6 [facility] Comment on above: Performed By: #### 8 [id number] #### [facility] [address] Basophils (Bld) [#/Vol] 0.0 10*3/uL Normal 0.0-0.2 [facility] Comment on above: Performed By: #### 8 [id number] #### [facility] [address] [place] [address], [facility] Basophils/100 WBC (Bld) 0.4 % Normal 0.0-1.0 [facility] Comment on above: Performed By: #### 8 [id number] #### [facility] [address] [place] [address], [facility] Eosinophils (Bld) [#/Vol] 0.1 10*3/uL Normal 0.0-0.5 [facility] Comment on above: Performed By: #### 8 [id number] #### [facility] [address] [facility] [place] [address], [facility] Eosinophils/100 WBC (Bld) 1.2 % Normal 0.0-6.0 [facility] Comment on above: Performed By: #### 8 [id number] #### [facility] [address] [facility]. [address] Erythrocyte distribution width (RBC) [Ratio] 13.1 % Normal 11.5-15.0 [facility] Comment on above: Performed By: #### 8 [id number] #### [facility] [address] [place] [address], [facility] Hematocrit (Bld) [Volume fraction] 42.7 % Normal 36.0-45.0 [facility] Comment on above: Performed By: #### 8 [id number] #### [facility] [address] [facility]. [address] Hemoglobin (Bld) [Mass/Vol] 14.0 g/dL Normal 12.0-15.0 [facility] Comment on above: Performed By: #### 8 [id number] #### [facility] [address] [facility] [place] [address], [facility] IMMATURE GRANS 0.1 % Normal 0.0-1.0 [facility] Comment on above: Performed By: #### 8 [id number] #### [facility] [address] [facility] [place] [address], [facility] Lymphocytes (Bld) [#/Vol] 1.7 10*3/uL Normal 1.2-4.0 [facility] Comment on above: Performed By: #### 8 [id number] #### [facility] [address] [place] [address], [facility] Lymphocytes/100 WBC (Bld) 24.1 % Normal 20.0-45.0 [facility] Comment on above: Performed By: #### 8 [id number] #### [facility] [address] [facility] [place] [address], [facility] MCH (RBC) [Entitic mass] 30.7 pg Normal 27.0-33.0 [facility] Comment on above: Performed By: #### 8 [id number] #### [facility] [address] [facility] [place] [address], [facility] MCHC (RBC) [Mass/Vol] 32.8 g/dL Normal 32.0-35.0 [facility] Comment on above: Performed By: #### 8 [id number] #### [facility] [address] [facility] MCV (RBC) [Entitic vol] 93.6 fL Normal 82.0-98.0 [facility] Comment on above: Performed By: #### 8 [id number] #### [facility] [address] [place] [address], [facility] Monocytes (Bld) [#/Vol] 0.7 10*3/uL Normal 0.1-1.0 [facility] Comment on above: Performed By: #### 8 [id number] #### [facility] [address] [place] [address], [facility] MONOS 9.8 % Normal 5.0-12.0 [facility] Comment on above: Performed By: #### 8 [id number] #### [facility] [address] [facility] [address] Neutrophils/100 WBC (Bld) 64.4 % Normal 40.0-72.0 [facility] Comment on above: Performed By: #### 8 [id number] #### [facility] [address] [place] [address], [facility] Nucleated RBC/100 WBC (Bld) [Ratio] 0 % Normal 0-0 [facility] Comment on above: Performed By: #### 8 [id number] #### [facility] [address] [facility] [place] [address], [facility] PLAT CNT 289 10*3/uL Normal 150-400 [facility] Comment on above: Performed By: #### 8 [id number] #### [facility] [address] [place] [address], [facility] RBC (Bld) [#/Vol] 4.56 10*6/uL Normal 3.80-5.00 [facility] Comment on above: Performed By: #### 8 [id number] #### [facility] [address] [facility] [place] [address], [facility] WBC (Bld) [#/Vol] 6.93 10*3/uL Normal 4.00-10.60 [facility] Comment on above: Performed By: #### 8 [id number] #### [facility] [address] CHEST AND LATERALon 03-20-20 21 CHEST AND LATERAL [facility] Department of Radiology [address] [place] [id number] Patient Name: THIAGO SABILLON : 1950 Sex: F Age: Race: White [...] findings as detailed above Electronically signed: Savannah Eubanks. Transcribed by: [email or web address], User Resident: Electronically Signed by: SAVANNAH EUBANKS @ 03/21/2021 10:05 AM Normal [facility] Comment on above: Order Comment: evalu ate COMP METABOLIC PANELon 03-20 Albumin [Mass/Vol] 4.7 g/dL Normal 3.5-5.7 [facility] Comment on above: Performed By: #### 3 0965 #### [facility] [address] [place] [address], [place] ALKALINE PHOSPH 84 IU/L Normal 34-104 [facility] Comment on above: Performed By: #### 3 0965 #### [facility] [address] [place] [address], [place] ALT [Catalytic activity/Vol] 20 U/L Normal 7-52 [facility] Comment on above: Performed By: #### 3 0965 #### [facility] [address] [place] [address], [place] AST [Catalytic activity/Vol] 16 U/L Normal 13-39 [facility] Comment on above: Performed By: #### 3 0965 #### [facility] [address] [place] [address], [place] Bilirubin [Mass/Vol] 0.5 mg/dL Normal 0.3-1.0 [facility] Comment on above: Performed By: #### 3 0965 #### [facility] [address] [place] [address], [place] Calcium [Mass/Vol] 9.7 mg/dL Normal 8.6-10.3 [facility] Comment on above: Performed By: #### 3 0965 #### [facility] [address] [place] [address], [place] Chloride [Moles/Vol] 100 mmol/L Normal 98-107 [facility] Comment on above: Performed By: #### 3 0965 #### [facility] [address] [place] [address], [place] CO2 [Moles/Vol] 33 mmol/L High 21-31 [facility] Comment on above: Performed By: #### 3 0965 #### [facility] [address] [place] [address], [place] Creatinine [Mass/Vol] 0.64 mg/dL Normal 0.60-1.20 [facility] Comment on above: Performed By: #### 3 0965 #### [facility] [address] [place] [address], [place] GFR/1.73 sq M.predicted among blacks MDRD (S/P/Bld) [Vol rate/Area] mL/min/{1.73_m2} Normal >60 [facility] Comment on above: Performed By: #### 3 0965 #### [facility] [address] [place] [address], [place] GFR/1.73 sq M.predicted among non-blacks MDRD (S/P/Bld) [Vol rate/Area] mL/min/{1.73_m2} Normal >60 [facility] Comment on above: Performed By: #### 3 0965 #### [facility] [address] [place] [address], [facility] Glucose [Mass/Vol] 87 mg/dL Normal 70-100 [facility] Comment on above: Performed By: #### 3 0965 #### [facility] [address] [place] [address], [facility] Potassium [Moles/Vol] 4.3 mmol/L Normal 3.5-5.1 [facility] Comment on above: Performed By: #### 3 0965 #### [facility] [address] [place] [address], [facility] Protein [Mass/Vol] 7.8 g/dL Normal 6.0-8.3 [facility] Comment on above: Performed By: #### 3 0965 #### [facility] [address] [place] [address], [facility] Sodium [Moles/Vol] 137 mmol/L Normal 136-145 [facility] Comment on above: Performed By: #### 3 0965 #### [facility] [address] [facility] [place] [address], [facility] Urea nitrogen [Mass/Vol] 26 mg/dL High 7-25 [facility] Comment on above: Performed By: #### 3 0965 #### [facility] [address] [facility] [place] [address], [facility] CT CHEST WO CONTRASTon 03-20 CT CHEST WO CONTRAST [facility] Department of Radiology [address] [place] [id number] Patient Name: THIAGO SABILLON DOB: 1950 Sex: F Age: Race: White Pt. Location: Patient Status: D Ordered Date: 03/14/2021 9:10:00 AM Completed Date: 03/20/2021 12:38 PM Requesting Provider: CHELE SANCHEZ Attending Provider: TANA BARNETT Report Copy To: KALLIE CHASE Signs & Symptoms: I34.0 Nonrheumatic mitral (valve) insufficiency I10 History: Rociada time ok per lee in ct Comments: [...] examination. Electronically signed: Omkar Crowder. Transcribed by: [email or web address], User Resident: Electronically Signed by: OMKAR CROWDER @ 03/21/2021 01:39 PM Normal [facility] Comment on above: Order Comment: for viola lemon on 03/22/2021 , Patient Age: 70 years old HEMOGLOBIN A1Con 03-20-2021 Glucose [Moles/Vol] 111 mmol/L Normal [facility] Comment on above: Performed By: #### 3 0965 #### [facility] [address] HbA1c (Bld) [Mass fraction] 5.5 % Normal 4.0-6.0 [facility] Comment on above: Performed By: #### 3 0965 #### [facility] [address] [place] [address], [facility] PROTHROMBIN TIMEon 1 INR Coag (PPP) [Relative time] 0.96 {INR} Normal 0.91-1.16 [facility] Comment on above: Result Comment: ACCC P RECOMMENDED INR FOR WARFARIN THERAPY -------- ------- CONDITION INR PROPHYLAXIS OF VENOUS THROMBOSIS 2-3 (HIGH-RISK SURGERY) TREATMENT OF VENOUS THROMBOSIS 2-3 TREATMENT OF PULMONARY EMBOLISM 2-3 PREVENTION OF SYSTEMIC EMBOLISM: 2-3 ACUTE MYOCARDIAL INFARCTION TISSUE HEART VALVES VALVULAR HEART DISEASE ATRIAL FIBRILLATION RECURRENT SYSTEMIC EMBOLISM MECHANICAL HEART VALVE 2.5-3.5 FROM: ORAL ANTICOAGULANTS. MECHANISM OF ACTION, CLINICAL EFFECTIVENESS, AND OPTIMAL THERAPEUTIC RANGE. CHEST 1995;108:231S-246S. Performed By: #### 8 [id number] #### [facility] [address] PT Coag (PPP) [Time] 12.8 s Normal 12.3-14.8 [facility] Comment on above: Result Comment: ALL RESULTS MUST BE INTERPRETED WITH RESPECT TO BLOOD DRAWING ARTIFACT OR DILUTION ERROR OF ANTICOAGULANT AT THE TIME OF SAMPLING. Performed By: #### 8 [id number] #### [facility] [address] TYPE AND CROSSMATCHon 2020 ABO INTERPRETATION A Normal [facility] Comment on above: Performed By: #### 3 0738 #### [facility] [address] RH INTERPRETATION Positive Normal [facility] Comment on above: Performed By: #### 3 0738 #### [facility] [address] [facility]. [address] URINALYSIS REFLEXon 03-20-20 21 Appearance (U) CLEAR Normal CLEAR [facility] Comment on above: Performed By: #### 3 0965 #### [facility] [address] [place] [address], [facility] Bilirubin Ql (U) Negative Normal NEGATIVE [facility] Comment on above: Performed By: #### 3 0965 #### [facility] [address] [facility] [place] [address], [facility] Color (U) YELLOW Normal YELLOW [facility] Comment on above: Performed By: #### 3 0965 #### [facility] [address] [place] [address], [facility] EPIS NONE SEEN Normal FEW,OCC,NO NE SEEN [facility] Comment on above: Performed By: #### 3 0965 #### [facility] [address] [place] [address], [place] Glucose Ql (U) Negative Normal NEGATIVE [facility] Comment on above: Performed By: #### 3 0965 #### [facility] [address] [place] [address], [facility] Hemoglobin Ql (U) Negative Normal NEGATIVE [facility] Comment on above: Performed By: #### [id number] #### [facility] [address] [place] [address], [facility] KETONE Negative Normal NEGATIVE [facility] Comment on above: Performed By: #### [id number] #### [facility] [address] [place] [address], [place] RAHUL Negative Normal NEGATIVE [facility] Comment on above: Performed By: #### 3 [id number] #### [facility] [address] [address], [place] Nitrite Ql (U) Negative Normal NEGATIVE [facility] Comment on above: Performed By: #### 3 [id number] #### [facility] [address] [address], [facility] pH (U) 7.0 [pH] Normal 5.0-8.0 [facility] Comment on above: Performed By: #### 3 [id number] #### [facility] [address] [address], [facility] Protein Ql (U) Negative Normal NEGATIVE [facility] Comment on above: Performed By: #### 3 [id number] #### [facility] [address] [place] [address], [facility] RBC 0-2 Abnormal NONE SEEN [facility] Comment on above: Performed By: #### 3 [id number] #### [facility] [address] [place] [address], [facility] SPEC GRAV 1.020 Normal 1.015-1.02 0 [facility] Comment on above: Performed By: #### 3 [id number] #### [facility] [address] [place] [address], [facility] WBC UA 0-2 Abnormal NONE SEEN [facility] Comment on above: Performed By: #### 3 [id number] #### [facility] [address] [place], [place] [id number] [place] [address] Cardiovascular Lab Reporton 03-08-2021 Cardiovascular Lab Report [facility] Patient Name: Ram[facility] MR #: [id number] Physician: Balta Jane, Department of M.D. Medicine Service Date: 03/08/2021 Division of Birthdate: 1950 Cardiology Room #: Adult Cardiovascular Services [address] [address] Cardiovascular Laboratory Report FINAL IMPRESSIONS: 1. Ctuy-wx-hjaadyku coronary artery disease. 2. Severe mitral regurgitation by transesophageal echocardiography. 3. Normal right-sided heart pressures and normal pulmonary capillary wedge pressure. 4. Normal cardiac output/cardiac index. 5. Pelr-hg-ddtjvhik systemic hypertension. 6. Peripheral arterial disease evidenced angiographically. RECOMMENDATIONS: 1. Will consult Cardiothoracic Surgery for potential mitral valve repair versus replacement. 2. Aggressive cardiovascular risk factor modification. 3. Optimization of medical management; aspirin, high intensity statin therapy, a beta estevan, and angiotensin-converting enzyme inhibitor are indicated. 4. Further investigations and management for peripheral arterial disease as clinically appropriate. 5. Follow up with Dr. Jane in the next 1 to 2 months. [...] femoral vein and artery was obtained. A 6-Macedonian x 11 cm sheath was placed in [...] was elected to conclude the procedure. A 6-Macedonian MynxGrip closure device was deployed; however, this [...] Severe mitral regurgitation. Electronically Signed by: Balta Jane M.D. 03/15/2021 09:24 A Balta Jane M.D. Date Dict: 03/08/2021/11:49 A/Balta Jane M.D. Date Trans: 03/08/2021 02:45 P/mmo [id number] cc: Balta Jane M.D. [address] [place] [address] Vital Signs Date Time Vital Sign Value Performing Clinician Facility 07-07-2024 [id number] Body temperature 97.7 [degF] MD Kallie Chase Work Phone: [facility] 07-07-2024 11:11-0400 Diastolic blood pressure 63 mm[Hg] MD Kallie Chase Work Phone: [facility] 07-07-2024 11:11-0400 Heart rate 67 /min MD Kallie Chase Work Phone: [facility] 07-07-2024 11:11-0400 Respiratory rate 16 /min MD Kallie Chase Work Phone: [facility] 07-07-2024 11:11-0400 SaO2% (BldA) [Mass fraction] 99 % MD Kallie Chase Work Phone: [facility] 07-07-2024 11:11-0400 Systolic blood pressure 108 mm[Hg] MD Kallie Chase Work Phone: [facility] 07-07-2024 02:27-0400 Body height 162.56 cm MD Kallie Chase Work Phone: [facility] 07-07-2024 02:27-0400 Body weight 54.9 kg MD Kallie Chase Work Phone: [facility] 07-07-2024 02:04-0400 Body temperature 98.2 [degF] MD Kallie Chase Work Phone: [facility] 07-07-2024 02:04-0400 Diastolic blood pressure 51 mm[Hg] MD Kallie Chase Work Phone: [facility] 07-07-2024 02:04-0400 Heart rate 61 /min MD Kallie Chase Work Phone: [facility] 07-07-2024 02:04-0400 Respiratory rate 19 /min MD Kallie Chase Work Phone: [facility] 07-07-2024 02:04-0400 SaO2% (BldA) [Mass fraction] 99 % MD Kallie Chase Work Phone: [facility] 07-07-2024 02:04-0400 Systolic blood pressure 107 mm[Hg] MD Kallie Chase Work Phone: [facility] 07-06-2024 15:44-0400 Body height 162.56 cm MD Kallie Chase Work Phone: [facility] 07-06-2024 15:44-0400 Body weight 51.9 kg MD Kallie hCase Work Phone: [facility] 07-05-2024 17:45-0400 Diastolic blood pressure 82 mm[Hg] MD Kallie Chase Work Phone: [facility] 07-05-2024 17:45-0400 Heart rate 54 /min MD Kallie Chase Work Phone: [facility] 07-05-2024 17:45-0400 Respiratory rate 16 /min MD Kallei Chase Work Phone: [facility] 07-05-2024 17:45-0400 SaO2% (BldA) [Mass fraction] 100 % MD Kallie Chase Work Phone: [facility] 07-05-2024 17:45-0400 Systolic blood pressure 138 mm[Hg] MD Kallie Chase Work Phone: [facility] 07-05-2024 16:13-0400 Body temperature 97.1 [degF] MD Kallie Chase Work Phone: [facility] 07-05-2024 16:13-0400 Inhaled oxygen flow rate 8 L/min MD Kallie Chase Work Phone: [facility] 07-05-2024 12:50-0400 Body height 162.56 cm MD Kallie Chase Work Phone: [facility] 07-05-2024 12:50-0400 Body weight 49.2 kg MD Kallie Chase Work Phone: [facility] 06-24-2024 14:55-0400 Body height 162.56 cm MD Kallie Chase Work Phone: [facility] 06-24-2024 14:55-0400 Body mass index (BMI) [Ratio] 18.3 kg/m2 MD Kallie Chase Work Phone: [facility] 06-24-2024 14:55-0400 Body weight 48.53 kg MD Kallie Chase Work Phone: [facility] 05-14-2024 08:29-0400 Body height 162.56 cm [facility] 05-14-2024 08:29-0400 Body mass index (BMI) [Ratio] 18.3 kg/m2 [facility] 05-14-2024 08:29-0400 Body weight 48.53 kg [facility] 05-14-2024 08:29-0400 Diastolic blood pressure 58 mm[Hg] [facility] 05-14-2024 08:29-0400 Heart rate 43 /min [facility] 05-14-2024 08:29-0400 Systolic blood pressure 99 mm[Hg] [facility] 04-02-2024 11:28-0400 Body height 162.56 cm MD Kallie Chase Work Phone: [facility] 04-02-2024 11:28-0400 Body mass index (BMI) [Ratio] 18.3 kg/m2 MD Kallie Chase Work Phone: [facility] 04-02-2024 [id number] Body temperature 98.7 [degF] MD Kallie Chase Work Phone: [facility] 04-02-2024 11:[id number] Body weight 48.53 kg MD Kallie Chase Work Phone: [facility] 04-02-2024 11:[id number] Diastolic blood pressure 71 mm[Hg] MD Kallie Chase Work Phone: [facility] 04-02-2024 11:[id number] Heart rate 62 /min MD Kallie Chase Work Phone: [facility] 04-02-2024 11:280400 SaO2% (BldA) [Mass fraction] 97 % MD Kallie Chase Work Phone: [facility] 04-02-2024 11:28-0400 Systolic blood pressure 115 mm[Hg] MD Kallie Chase Work Phone: [facility] 01-16-2024 10:140400 Body height 162.56 cm MD Kallie Chase Work Phone: [facility] 01-16-2024 10:14-0400 Body mass index (BMI) [Ratio] 18.8 kg/m2 MD Kallie Chase Work Phone: [facility] 01-16-2024 10:140400 Body weight 49.89 kg MD Kallie Chase Work Phone: [facility] 12-17-2023 09:[id number] Body height 162.56 cm [facility] 12-17-2023 09:06-0400 Body mass index (BMI) [Ratio] 18.4 kg/m2 [facility] 12-17-2023 09:[id number] Body weight 48.76 kg [facility] 12-17-2023 09:06-0400 Diastolic blood pressure 67 mm[Hg] [facility] 12-17-2023 09:06-0400 Heart rate 69 /min [facility] 12-17-2023 09:06-0400 Systolic blood pressure 102 mm[Hg] [facility] 10-03-2023 12:55-0500 Body height 162.56 cm Jennifer Mccarthy Other [facility] 10-03-2023 12:55-0500 Body mass index (BMI) [Ratio] 18.54 kg/m2 Jennifer Mccarthy Other [facility] Other 10-03-2023 12:55-0500 Body temperature 97.1 [degF] Jennifer Mccarthy Other [facility] Other 10-03-2023 12:55-0500 Body weight 48.99 kg Jennifer Mccarthy Other [facility] Other 10-03-2023 12:55-0500 Body weight 48.98 kg [facility] 10-03-2023 12:55-0500 Diastolic blood pressure 90 mm[Hg] Jennifer Mccarthy Other [facility] 10-03-2023 12:55-0500 SaO2% (BldA) [Mass fraction] 91 % Jennifer Mccarthy Other [facility] Other 10-03-2023 12:55-0500 Systolic blood pressure 120 mm[Hg] Jennifer Mccarthy Other [facility] 05-22-2023 09:00-0400 Body height 162.56 cm Kallie Chase Other [facility] Other 05-22-2023 09:00-0400 Body mass index (BMI) [Ratio] 18.19 kg/m2 Kallie Chase Other [facility] Other 05-22-2023 09:00-0400 Body weight 48.08 kg Kallie Chase Other [facility] Other 05-22-2023 09:00-0400 Diastolic blood pressure 64 mm[Hg] Kallie Chase Other [facility] Other 05-22-2023 09:00-0400 Systolic blood pressure 117 mm[Hg] Kallie Chase Other [facility] Other 05-14-2023 08:30-0400 Body height 162.56 cm Kallie Chase Other [facility] Other 05-14-2023 08:30-0400 Body mass index (BMI) [Ratio] 18.88 kg/m2 Kallie Chase Other [facility] Other 05-14-2023 08:30-0400 Body weight 49.9 kg Kallie Chase Other [facility] Other 05-14-2023 08:30-0400 Diastolic blood pressure 67 mm[Hg] Kallie Chase Other [facility] Other 05-14-2023 08:30-0400 SaO2% (BldA) [Mass fraction] 97 % Kallie Chase Other [facility] Other 05-14-2023 08:30-0400 Systolic blood pressure 122 mm[Hg] Kallie Chase Other [facility] Other 04-23-2023 09:00-0400 Body height 162.56 cm Kallie Chase Other [facility] Other 04-23-2023 09:00-0400 Body mass index (BMI) [Ratio] 18.54 kg/m2 Kallie Chase Other [facility] Other 04-23-2023 09:00-0400 Body weight 48.99 kg Kallie Chase Other [facility] Other 04-23-2023 09:00-0400 Diastolic blood pressure 79 mm[Hg] Kallie Chase Other [facility] Other 04-23-2023 09:00-0400 Systolic blood pressure 143 mm[Hg] Kallie Chase Other [facility] Other 01-08-2023 11:00-0400 Body height 162.56 cm Vernell Dormanle II Other [facility] Other 01-08-2023 11:00-0400 Body mass index (BMI) [Ratio] 19.05 kg/m2 Vernell Mcdonald II Other [facility] Other 01-08-2023 11:00-0400 Body weight 50.35 kg Vernell Antonio II Other [facility] Other 11-11-2022 11:45-0500 Body height 162.56 cm Kallie Chase Other [facility] Other 11-11-2022 11:45-0500 Body mass index (BMI) [Ratio] 19.05 kg/m2 Kallie Chase Other [facility] Other 11-11-2022 11:45-0500 Body weight 50.35 kg Kallie Chase Other [facility] Other 11-11-2022 11:45-0500 Diastolic blood pressure 62 mm[Hg] Kallie Chase Other [facility] Other 11-11-2022 11:45-0500 Systolic blood pressure 102 mm[Hg] Kallie Chase Other [facility] Other Encounters Encounter Date Encounter Type Care Provider Facility Start: 07-06-2024 End: 07-07-2024 Evaluation and management of inpatient MD Kallie Chase Work Phone: [facility] [place] [facility] Work Phone: Start: 07-05-2024 End: 07-05-2024 Admission to same day surgery center MD Kallie Chase Work Phone: [facility] [place] Start: 07-05-2024 End: 07-05-2024 ambulatory MD Kallie Chase Work Phone: [facility] Work Phone: Start: 07-05-2024 Non-patient / Non-visit MD Char Chase Work Phone: [facility] Work Phone: Start: 06-25-2024 End: 06-25-2024 ambulatory MD Kallie Chase Work Phone: [facility] Work Phone: Start: 06-25-2024 End: 06-25-2024 Patient encounter procedure MD Kallie Chase Work Phone: [facility] Work Phone: Start: 06-24-2024 End: 06-24-2024 Patient encounter procedure MD Kallie Chase Work Phone: [facility] Work Phone: Start: 06-24-2024 End: 06-24-2024 Discharged Recurring MD Kallie Chase Work Phone: [facility] [place] Start: 06-24-2024 Registered Recurring MD Kallie Chase Work Phone: [facility] [place] Start: 06-24-2024 End: 06-24-2024 ambulatory MD Kallie Chase Work Phone: [facility] Work Phone: Start: 06-22-2024 End: 06-22-2024 ambulatory MELODY BARRY Not Available Start: 06-21-2024 End: 06-21-2024 Patient encounter procedure MD Kallie Chase Work Phone: [facility]-Pre-Surgical Testing Work Phone: Start: 06-21-2024 End: 06-21-2024 ambulatory MD Kallie Chase Work Phone: [facility] Work Phone: Start: 06-21-2024 Encounter for preprocedural laboratory examination Vernell Alvarez [facility] Start: 05-14-2024 Preoperative state MD Kallie kothari Work Phone: [facility] Start: 05-14-2024 End: 05-14-2024 ambulatory [facility] Work Phone: Start: 05-14-2024 End: 05-14-2024 Patient encounter procedure [facility] Work Phone: Start: 05-05-2024 End: 05-05-2024 ambulatory ALEX SANTAMARIA Not Available Start: 04-16-2024 Non-patient / Non-visit [facility] Work Phone: Start: 04-15-2024 End: 04-15-2024 ambulatory MD Kallie Chase Work Phone: [facility] Work Phone: Start: 04-15-2024 End: 04-15-2024 Patient encounter procedure MD Kallie Chase Work Phone: [facility] Work Phone: Start: 04-15-2024 End: 04-15-2024 ambulatory DASIA PATRICIA Not Available Start: 04-02-2024 End: 04-02-2024 ambulatory MD Kallie Chase Work Phone: [facility] Work Phone: Start: 04-02-2024 End: 04-02-2024 Patient encounter procedure MD Kallie Chase Work Phone: [facility] Work Phone: Start: 01-16-2024 End: 01-16-2024 ambulatory MD Kallie Chase Work Phone: [facility] Work Phone: Start: 01-16-2024 End: 01-16-2024 Patient encounter procedure MD Kallie Chase Work Phone: [facility] Work Phone: Start: 01-07-2024 Non-patient / Non-visit MD Char Chase Work Phone: [facility] Work Phone: Start: 12-17-2023 End: 12-17-2023 ambulatory [facility] Work Phone: Start: 12-17-2023 End: 12-17-2023 Patient encounter procedure [facility] Work Phone: Start: 12-15-2023 Non-patient / Non-visit [facility] Work Phone: Start: 12-04-2023 Non-patient / Non-visit [facility] Work Phone: Start: 11-18-2023 Chart abstracting Melody villavicencio DO Work Phone: [facility] Start: 11-18-2023 End: 11-18-2023 Office outpatient visit 10 minutes Melody Barry DO Work Phone: [facility] Comment on above: Primary osteoarthrit is of right hip (Primary Dx); Status post total hip replacement, right Start: 11-18-2023 End: 11-18-2023 ambulatory MELODY PETERSONDLESTON Not Available Start: 10-16-2023 End: 10-16-2023 ambulatory DASIA PATRICIA Not Available Start: 10-03-2023 End: 10-03-2023 ambulatory Jennifer Mccarthy Other [facility] Other Start: 10-03-2023 Office outpatient vi sit 10 minutes Jennifer Mccarthy [facility] Start: 10-03-2023 End: 10-03-2023 Patient encounter procedure [facility] Work Phone: Start: 09-25-2023 End: 09-26-2023 ambulatory Kallie Chase Facility:[facility] Start: 09-11-2023 End: 09-11-2023 ambulatory ELISA CRUZ Not Available Start: 08-26-2023 End: 08-26-2023 ambulatory MELODY PETERSONDLESTON Not Available Start: 08-19-2023 End: 08-19-2023 Patient encounter procedure MD Kallie Chase Work Phone: [facility] [address] Work Phone: Start: 08-19-2023 End: 08-19-2023 ambulatory MD Kallie Chase Work Phone: [facility] Work Phone: Start: 08-04-2023 End: 08-04-[address] [facility] Start: 06-16-2023 End: 06-16-2023 ambulatory Melody Barry Facility:[facility] Start: 05-22-2023 End: 05-22-2023 ambulatory Kallie Chase Other [facility] Other Start: 05-22-2023 Encounter for other preprocedural examination Kallie Chase [facility] Start: 05-22-2023 Office outpatient vi sit 15 minutes Kallie Chase [facility] Start: 05-15-2023 End: 05-15-2023 ambulatory Kallie Chase Other [facility] Other Start: 05-15-2023 Telephone encounter Kallie Salvatore [facility] Start: 05-14-2023 End: 05-14-2023 ambulatory Kallie Chase Other [facility] Other Start: 05-14-2023 Office outpatient vi sit 15 minutes Kallie Chase [facility] Start: 04-25-2023 End: 04-25-2023 ambulatory [facility] Start: 04-25-2023 End: 04-25-2023 Encounter for other preprocedural examination [facility] Start: 04-23-2023 End: 04-23-2023 ambulatory Kallie Chase Other [facility] Other Start: 04-23-2023 Office outpatient vi sit 15 minutes Kallie Chase [facility] Start: 04-11-2023 End: 04-11-2023 ambulatory Kallie Chase Other [facility] Other Start: 04-11-2023 Telephone encounter Kallie Chase [facility] Start: 03-07-[address] KALLIE CHASE Facil ity:[facility] Start: 01-08-2023 Office outpatient ne w 45 minutes Vernell Alvarez II [facility] Start: 01-08-2023 End: 01-08-2023 ambulatory MD Kallie Chase Work Phone: [facility] Other Start: 01-08-2023 End: 01-08-2023 Patient encounter procedure MD Kallie Chase Work Phone: [facility] Start: 11-11-2022 End: 11-11-2022 ambulatory Kallie Chase Other [facility] Other Start: 11-11-2022 Office outpatient vi sit 15 minutes Kallie Chase [facility] Start: [address] KALLIE CHASE Facil ity:[facility] Start: 09-13-2022 End: 09-13-[address] KALLIE CHASE Facility:[facility] Start: 08-05-2022 Adult health examination Serena Chase Other [facility] Other Start: 08-05-2022 Encounter for genera l adult medical examination without abnormal findings Kallie Chase Other [facility] Other Start: 06-12-2022 End: 06-13-[address] DEJON IRBY Facility:[facility] Start: 05-23-2022 End: 05-24-[address] KALLIE CHASE Facility:[facility] Start: 05-20-2022 End: 05-21-[address] BALTA JANE Facility:[facility] Start: 04-24-2022 End: 04-25-[address] KALLIE CHASE Facility:[facility] Start: 08-10-2021 End: 08-10-2021 Encounter for other preprocedural examination Kallie Chase Other [facility] Other Start: 08-10-2021 End: 08-10-2021 Pre-procedure evaluation check Kallie Chase Other [facility] Other Start: 03-22-2021 End: 03-27-2021 Evaluation and management of inpatient KALLIE CHASE Facility:[facility] Start: 03-14-2021 End: 04-03-2021 ambulatory REFERRED SELF Facility:[facility] Start: 02-27-2021 End: 07-09-2021 ambulatory REFERRED SELF Facility:[facility] Start: 02-21-2021 Encounter for gynecological examination (general) (routine) with abnormal findings Kallie Chase Other [facility] Other Start: 02-21-2021 Gynecological examin ation abnormal Kallie Chase Other [facility] Other Procedures Date Procedure Procedure Detail Performing Clinician Start: 07-06-2024 CT of head without contrast MD Kallie Chase Work Phone: Start: 07-06-2024 Plain chest X-ray MD Ragini Chase Work Phone: Start: 07-05-2024 Plain X-ray of left hip MD Kallie Chase Work Phone: Start: 07-05-2024 Total replacement of left hip joint MD Kallie Chase Work Phone: Start: 06-21-2024 Antibody screen Joshua Phipps Comment on above: Order Comment: Date of Surgery: [id number] Result Comment: PERF ORMED BY: [facility] [address] [place] [address] PATHOLOGIST CATH LABORATORY TECHNICIAN KRISTINA ENNIS M.D. Start: 01-16-2024 Plain X-ray of left hip MD Kallie Chase Work Phone: Start: 11-18-2023 Radex hip unilateral with pelvis 2-3 views Melody Denise Jhonny DUNN Work Phone: Start: 08-04-2023 ECG 12-LEAD SANDRA MOH AN Start: 01-08-2023 Plain X-ray of right hip MD Kallie Chase Work Phone: Start: 03-22-2021 COMPUTER ASSISTED CO OCEDURE OF [place] CHELE MASROOR Start: [...] above: Performed By: #### 3 [id number] #### [facility] Dio SPENCER. [address] Start: 07-14-2017 Screening for malign ant neoplasm of colon Kallie Chase Other Start: 10-31-2014 Removal of suture Serena walker Chase Other End: 02-13-2021 Screening for malignant neoplasm of breast Kallie Chase Other Screening for malign ant neoplasm of skin Kallie Chase Other Screening for osteoporosis M frank Chase Other Plan of Treatment Date Care Activity Detail Author Start: 09-14-2024 End: 09-14-2024 Patient encounter procedure 09/14/2024 10:00 AM EST Office Visit [facility] [address] [place] [id number] Thaddeus Mcclendon, DO [address] [place] [address] [facility] Start: 07-16-2024 [facility] Start: 07-15-2024 [facility] Start: 07-14-2024 [facility] Start: 07-13-2024 [facility] Start: 07-12-2024 [facility] Start: 07-11-2024 [facility] Start: 07-10-2024 [facility] Start: 07-09-2024 [facility] Start: 07-08-2024 [facility] Start: 07-07-2024 End: 07-07-2024 [facility] Start: 07-07-2024 Doppler ultrasonography of bilateral carotid arteries US carotid doppler BI [facility] Start: 07-07-2024 US.doppler Carotid arteries - bilateral [facility] Start: 07-06-2024 Physical therapy procedure [place] Start: 07-06-2024 Referral to occupational therapist [facility] Start: 07-06-2024 Hospital admission [facility] Start: 07-06-2024 [facility] Start: 07-05-2024 Hospital admission [facility] Start: 07-05-2024 XR Hip - left GE [address] [facility] Start: 07-05-2024 End: 07-05-2024 Plain X-ray of left hip [facility] Start: 07-05-2024 XR Hip - left 2 Views [facility] Start: 07-05-2024 End: 07-05-2024 [facility] Start: 06-21-2024 [facility] Start: 06-08-2024 End: 06-08-2024 Patient encounter procedure 06/08/2024 9:15 AM EDT Office Visit [facility] [address] [place] [address] Melody Barry, [address] [place] [address] [facility] Start: 04-15-2024 End: 04-15-2024 Patient encounter procedure 04/15/2024 1:30 PM EDT Office Visit [facility] [address] [place] [address] Dasia Patricia MD [address] [place], [place] [id number] [facility] Start: 01-16-2024 Plain X-ray of left hip XR hip LT min 2V(w/wo pelvis)* [facility] Start: 01-16-2024 XR Hip - left 2 Views [facility] Start: 12-18-2023 Patient referral [facility] Work Phone: Start: 11-18-2023 End: 11-18-2023 Patient encounter procedure 11/18/2023 11:00 AM EST Office Visit [facility] [address] [place] [address] Melody Barry, DO [address] [facility] [address] [place] [address] [facility] Anion gap measurement [facility] Basophils [#/volume] in Blood by Automated count [facility] Basophils/100 leukoc ytes in Blood by Automated count [facility] Eosinophils/100 leuk ocytes in Blood by Automated count [facility] Erythrocyte distribu tion width [Ratio] by Automated count [facility] Erythrocytes [#/volu me] in Blood [facility] Hematocrit [Volume Fraction] of Blood [facility] Hemoglobin [Mass/vol ume] in Blood [facility] Hemoglobin [Mass/vol ume] in Blood [facility] Leukocytes [#/volume ] corrected for nucleated erythrocytes in Blood by Automated coun [facility] Leukocytes [#/volume ] in Blood [facility] Lymphocytes [#/volum e] in Blood by Automated count [facility] Lymphocytes/100 leuk ocytes in Blood by Automated count [facility] MCH [Entitic mass] b y Automated count [facility] MCHC [Mass/volume] b y Automated count [facility] MCV [Entitic volume] by Automated count [facility] Methicillin resistan t Staphylococcus aureus [Presence] in Unspecified specimen by Organism specific culture [facility] Monocytes [#/volume] in Blood by Automated count [facility] Monocytes/100 leukoc ytes in Blood by Automated count [facility] Neutrophils [#/volum e] in Blood by Automated count [facility] Neutrophils/100 leuk ocytes in Blood by Automated count [facility] Nucleated erythrocyt es [Presence] in Blood by Automated count [facility] Patient Education [facility] Work Phone: [facility] referral [facility] Work Phone: Platelet mean volume [Entitic volume] in Blood by Automated count [facility] Platelets [#/volume] in Blood [facility] Immunizations Immunization Date Immunization Notes Care Provider Fa cility 01-01-2022 zoster vaccine recombinant Melody Barry DO Work Phone: [facility] 12-31-2021 zoster vaccine, live Kallie Chase Other [facility] 09-24-2021 zoster vaccine meri Barry DO Work Phone: [facility] 09-24-2021 zoster vaccine, live Kallie Chase Other [facility] 10-22-2017 pneumococcal polysaccharide vaccine, 23 valent Melody Barry DO Work Phone: [facility] 02-12-2012 zoster vaccine, live Melody luo DO Work Phone: [facility] Payers Date Payer Category Payer Self-pay [id number] 2021 Medicare [id number] 1959 Medicare [id number] 2. [id number] 1950 Unknown [id number] 2.16.8 40.1.095680.3.579.2.647 1950 Unknown [id number] 2.16.8 40.1.679734.3.579.2.647 1950 Unknown [id number] 2.16.8 40.1.037571.3.579.2.647 1950 Unknown [id number] 2.16.84 0.1.446868.3.579.2.593 1950 Unknown [id number] 2.16.84 0.1.351069.3.579.2.593 1950 Unknown [id number] 2.16.84 0.1.463827.3.579.2.593 1950 Unknown [id number] 2.16.84 0.1.731783.3.579.2.593 1950 Unknown [id number] 2.16.84 0.1.944901.3.579.2.593 1950 Unknown [id number] 2.16.84 0.1.532019.3.579.2.593 1950 Unknown [id number] 2.16.84 0.1.333198.3.579.2.593 1950 Unknown [id number] 2.16.8 40.1.249316.3.579.2.1244 1950 Unknown [id number] 2.16.8 40.1.054753.3.579.2.718 1950 Unknown [id number] 2.16.8 40.1.605651.3.579.2.718 1950 Unknown [id number] 2.16.84 0.1.189284.3.579.2.1259 1950 Unknown [id number] 2.16.84 0.1.046603.3.579.2.1259 1950 Unknown [id number] 2.16.84 0.1.223815.3.579.2.1259 1950 Unknown [id number] 2.16.84 0.1.901727.3.579.2.1259 1950 Unknown [id number] 2.16.84 0.1.383833.3.579.2.1259 1950 Unknown [id number] 2.16.84 0.1.763478.3.579.2.1259 1950 Unknown [id number] 2.16.84 0.1.963783.3.579.2.1259 1950 Unknown [id number] 2.16.840 .1.883205.3.579.2.1259 1950 Unknown [id number] 2.16.840 .1.154572.3.579.2.1259 Private Health Insurance IAB [id number] Unknown [facility] [id number] Unknown [id number] 2.16.8 40.1.764791.3.579.2.531 Unknown [id number] 2.16.8 40.1.974708.3.579.2.531 Unknown [id number] 2.16.8 40.1.374406.3.579.2.531 Unknown [id number] 2.16.8 40.1.617301.3.579.2.531 Unknown [id number] 2.16.8 40.1.941897.3.579.2.531 Unknown [id number] 2.16.8 40.1.397563.3.579.2.531 Social History Date Type Detail Facility Unknown if ever smoked [facility] Other Start: 07-29-2023 End: 10-16-2023 Sex Assigned At [facility] Other Start: 1950 Sex Assigned At Female F [facility] Start: 02-18-2023 End: 07-07-2024 Tobacco smoking status NHIS Never smoked tobacco [facility] Start: 02-18-2023 [...] At Not on file [facility] Goals Date Patient Goal Desired Activity /State Functional Status Date Assessment Result Facility 07-07-2024 Functional status Patient at [facility] Work Phone: Mental Status Date Assessment Result Facility 07-07-2024 Cognitive function Cognitive Sta tus Patient at [facility] Work Phone: Clinical Notes 03-06-2021 to 07-07-2024 Note Date & Type Note Facility 07-07-2024 History and physi karin note Note Date/Time July 07, 2024 12:30am [facility] [address] [place] [address] Hospitalist H&P Signed Patient: Thiago Sabillon MR#: [id number] : 1950 Acct:[id number] Age/Sex: 73 / F Adm Date: 4 Loc: 3T Room: [address] [place] [address] Type: ADM IN Attending Dr: Pedro Quintero DO Copies to: Savannah Wen, MD Pedro Tirado, DO~ HPI DATE OF EXAMINATION: 07/06/24 CHIEF COMPLAINT: Dizziness, syncope/unresponsiveness HISTORY OF PRESENT ILLNESS: Patient is a pleasant 73-year-old female with PMH of osteoarthritis, HLD, hypothyroidism, mitral valve repair (2019, in [place]) who is status post left total hip arthroplasty on 07/05/2024. She presents to the emergency department after a witnessed unresponsive episode. She reports an episode of dizziness prior to laying down last night and again felt lightheaded when she got up to the chair this morning. She did eat and drink both after she got home and againthis morning. She reports taking her prescribed oxycodone 5 mg at 7:30 AM, 2.5 mg at 10:30 AM, and 5 mg at 2 PM. Sometime after this, physical therapy was at her home asking her questions when she felt lightheaded and became unresponsive for approximately 30 seconds. She did not lose pulse. She states she could hear, but was unable to speak. She did not lose bowel or bladder control. She had no headache. No chest pain or shortness of breath. She did feel nauseous, no emesis. She reports she is quite active at baseline, swims, bikes. In the ER, CBC showed mild elevation of WBC 12.8. Coags WNL. Chemistry overallunremarkable. CK6 06. Normal troponin. ECG sinus bradycardia, 47 bpm. Heart rate in the ER ranged from 43-62 per chart review. Blood pressure of 85/48 correlates with when heart rate was 43. CT head was negative for acute findings. CXR shows no acute cardiopulmonary abnormality. She is admitted to hospitalist service for further evaluation and treatment. Review of Systems Review of Systems Review of systems: 10 point review of systems was obtained and all are negative unless noted below or in the HPI. 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) Hypothyroidism, unspecified (10/18/13) Hernia Heart murmur COVID-19 x2 Cardiac murmur, unspecified Arthritis Surgical History History of mitral valve repair 2020 S/P carpal tunnel release right H/O dilation and curettage H/O melanoma excision left arm and back, 2014, 2019 Status post total hip replacement, right Mitral valve replaced Family History Father Mother Hypertension Kidney failure Family/Other Macular degeneration Sister Cancer Family/Other Cancer Grandparent Cancer Social History Smoking Status: Never smoker Substance Use Type: None Social History Comments: grandson lives with patient Meds Medications and Allergies Allergies Cephalosporins Allergy (Unknown, Verified 07/06/24 15:42) Hives cephalexin [From Keflex] Adverse Reaction (Severe, Verified 07/06/24 15:42) Weakness Home Medications aspirin 81 mg tablet,delayed release (Aspir-) 162 mg PO DAILY 08/11/17 [History Confirmed 07/05/24] biotin 10 mg tablet 10 mg PO DAILY 08/11/17 [History Confirmed 07/07/24] folic acid 1 mg tablet 1 mg PO DAILY 08/11/17 [History Confirmed 07/07/24] grpm-mperf-cl3-ibt-jzb-ikkg-sterols 375 mg-100 mg-36 mg-54 mg capsule (Glucosamine Chondroitin PLUS) 1 cap PO DAILY 08/11/17 [History Confirmed 07/07/24] mecobalamin-levomefolate calcium-pyridoxal phos 2 mg-3 mg-35 mg tablet (Foltanx)1 tab PO DAILY 08/11/17 [History Confirmed 07/05/24] omega 3,6,9 combination no.7 92 mg (43 mg-22 [id number]) chew tablet ([place] DHA) 1 tab PO DAILY 08/11/17 [History Confirmed 07/07/24] vit A 300 mcg-C 200 mg-E 27 mg-lutein 2 mg and minerals tablet (Eye Health Plus Lutein) 1 tab PO DAILY 08/11/17 [History Confirmed 07/07/24] denosumab 60 mg/mL subcutaneous syringe (Prolia) 60 mg subcut [id number] 05/14/24 [History Confirmed 07/05/24] vitamin K2 100 mcg capsule 100 mcg PO DAILY 05/14/24 [History Confirmed 07/07/24] calcium citrate 315 mg-vitamin D3 5 mcg (200 unit) tablet (Calcium Citrate + D) 2 tab PO DAILY 06/21/24 [History Confirmed 07/07/24] ergocalciferol (vitamin D2) 1,250 mcg (50,000 unit) capsule (Vitamin D2) 1,250 mcg PO DAILY 06/21/24 [History Confirmed 07/05/24] ferrous sulfate, dried 159 mg (45 mg iron) tablet,extended release (iron ER) 159mg PO DAILY 06/21/24 [History Confirmed 07/07/24] magnesium oxide 400 mg (241.3 mg magnesium) tablet 400 mg PO DAILY 06/21/24 [History Confirmed 07/07/24] red beet root 250 mg-sour diallo extract 0.5 mg chewable tablet 1 tab PO DAILY 06/21/24 [History Confirmed 07/07/24] turmeric 400 mg capsule 1 mg PO DAILY 06/21/24 [History Confirmed 07/07/24] vitamin E 100 unit capsule 45 mg PO DAILY 06/21/24 [History Confirmed 07/07/24] zinc 50 mg tablet 50 mg PO 3XW 06/21/24 [History Confirmed 07/07/24] acetaminophen 500 mg tablet 1,000 mg (2 x 500 mg) PO Q8H 30 days #180 tabs 06/23/24 [Rx Confirmed 07/07/24] cefadroxil 500 mg capsule 500 mg PO Q12H 7 days #14 tabs 06/23/24 [Rx Confirmed 07/06/24] celecoxib 200 mg capsule 200 mg PO BID 30 days #60 caps 06/23/24 [Rx Confirmed 07/07/24] levothyroxine 50 mcg tablet See Rx Instructions .Route .COMPLEX #90 tabs 06/23/24 [Rx Confirmed 07/07/24] ondansetron HCl 4 mg tablet 4 mg PO Q8H PRN Nausea #9 tabs 06/23/24 [Rx Confirmed 07/07/24] oxycodone 5 mg tablet 5 mg PO Q4H PRN Pain 7 days #40 tabs 06/23/24 [Rx Confirmed 07/06/24] pantoprazole 20 mg tablet,delayed release (Protonix) 20 mg PO daily 35 days #35 tabs 06/23/24 [Rx Confirmed 07/07/24] polyethylene glycol 3350 17 gram/dose oral powder (Miralax) 17 g PO daily 7 days#7 packets 06/23/24 [Rx Confirmed 07/07/24] sennosides 8.6 mg-docusate sodium 50 mg tablet (Senokot-S) 2 tab PO daily 30 days #60 tabs 06/23/24 [Rx Confirmed 07/07/24] tramadol 50 mg tablet 50 mg PO Q6H PRN Pain 7 days #40 tabs 06/23/24 [Rx Confirmed 07/07/24] atorvastatin 80 mg tablet 80 mg PO DAILY 07/05/24 [History Confirmed 07/07/24] Exam Physical Exam Vital Signs: Temp Pulse Resp BP Pulse Ox O2 Del Method 36.6 C 62 18 124/59 L 100 Room Air 07/06/24 22:28 07/06/24 23:30 07/06/24 23:30 07/06/24 23:30 07/06/24 23:30 07/06/24 23:30 Const General: cooperative Nutritional Appearance: thin Orientation: alert, awake and oriented x3 HEENT Head: normal to inspection Eyes General: appearance normal, both eyes and all related structures Neck Neck: normal visual inspection and trachea midline Chest Chest palpation & inspection: normal inspection of the chest Resp Effort & Inspection: normal respiratory effort, able to speak in complete sentences and symmetric chest movement Auscultation: clear to auscultation bilaterally, no rales, no rhonchi and no wheezes Cardio Rate: regular rate and bradycardic Rhythm: regular rhythm GI Inspection: normal to inspection Palpation: soft and nontender General: deferred Skin General: other (Left hip incision, postsurgical dressing CDI) Neuro General: patient alert, patient awake, patient oriented x3 and CN's II-XI intactbilaterally Cognition: normal cognition Speech: speech normal Motor: other (BUE and RLE 5/5, LLE limited 2/2 recent surgery) Extrem General: no calf tenderness and no edema Psych Appearance: grossly normal Mood: congruent mood Affect: normal affect Attitude: cooperative Thought Process: normal Thought Content: normal Insight: insight good Judgment: judgment good Results - Hospitalist H&P Lab Results Labs: Laboratory Last Values Corrected WBC 12.8 X10E3/uL (3.8-11.6) H 07/06/24 17:05 Uncorrected WBC Count 12.8 x10E3/uL (3.8-11.6) H 07/06/24 17:05 RBC 4.42 X10E6/uL (3.60-5.00) 07/06/24 17:05 Hgb 14.1 g/dL (11.8-15.4) 07/06/24 17:05 Hct 42.3 % (34.0-46.4) 07/06/24 17:05 MCV 95.6 fl (80-100) 07/06/24 17:05 MCH 31.8 pg (24.7-34.3) 07/06/24 17:05 MCHC 33.3 g/dL (32.0-35.0) 07/06/24 17:05 RDW 14.5 % (11.9-15.3) 07/06/24 17:05 Plt Count 243 x10E3/uL (150-450) 07/06/24 17:05 MPV 7.6 fl (6.3-10.7) 07/06/24 17:05 Neut % (Auto) 79.2 % (.) 07/06/24 17:05 Lymph % (Auto) 10.0 % (.) 07/06/24 17:05 Hardee % (Auto) 10.1 % (.) 07/06/24 17:05 Eos % (Auto) 0.4 % (.) 07/06/24 17:05 Baso % (Auto) 0.3 % (.) 07/06/24 17:05 Nucleat RBC Rel Count 0.0 /100 WBC (0-0.5) 07/06/24 17:05 Neut # (Auto) 10.2 x10E3/uL (1.8-7.7) H 07/06/24 17:05 Lymph # (Auto) 1.3 x10E3/uL (1.00-4.8) 07/06/24 17:05 Hardee # (Auto) 1.3 x10E3/uL (0.0-0.8) H 07/06/24 17:05 Eos # (Auto) 0.0 x10E3/uL (0.0-0.45) 07/06/24 17:05 Baso # (Auto) 0.0 x10E3/uL (0.0-0.2) 07/06/24 17:05 Monocyte Dist Width 17.45 % (0.00-20.00) 07/06/24 17:05 PT 11.0 Seconds (9.0-12.9) 07/06/24 17:05 INR 0.9 07/06/24 17:05 APTT 24.6 Seconds (25.1-36.5) L 07/06/24 17:05 PHA Creatinine Clear 51.31 07/06/24 17:05 Sodium 133 mmol/L (136-145) L 07/06/24 17:05 Potassium 4.0 mmol/L (3.5-5.1) 07/06/24 17:05 Chloride 100 mmol/L (98-107) 07/06/24 17:05 Carbon Dioxide 25.6 mmol/L (21.0-31.0) 07/06/24 17:05 Anion Gap 11.4 mEq/L (6.0-15.0) 07/06/24 17:05 BUN 28 mg/dL (7-25) H 07/06/24 17:05 Creatinine 0.60 mg/dL (0.60-1.20) 07/06/24 17:05 Est GFR (CKD-EPI) > 60.0 mL/Min 07/06/24 17:05 Glucose 102 mg/dL (70-100) H 07/06/24 17:05 Calcium 8.8 mg/dL (8.6-10.3) 07/06/24 17:05 Magnesium 1.9 mg/dL (1.9-2.7) 07/06/24 17:05 Total Bilirubin 0.7 mg/dl (0.3-1.0) 07/06/24 17:05 AST 32 U/L (13-39) 07/06/24 17:05 ALT 32 U/L (7-52) 07/06/24 17:05 Alkaline Phosphatase 58 U/L (34-104) 07/06/24 17:05 Total Creatine Kinase 606 U/L (30-223) H 07/06/24 17:05 Troponin I High Sens 5.1 pg/mL (0.0-15.0) 07/06/24 17:05 B-Natriuretic Peptide 111.0 pg/mL (5-100) H 07/06/24 17:05 Total Protein 6.8 gm/dL (6.4-8.9) 07/06/24 17:05 Albumin 4.3 gm/dL (3.5-5.7) 07/06/24 17:05 Globulin 2.5 gm/dL 07/06/24 17:05 Albumin/Globulin Ratio 1.7 07/06/24 17:05 Assessment & Plan Assessment/Plan (1) Syncope: (2) Bradycardia: (3) S/P total left hip arthroplasty: (4) Primary osteoarthritis of left hip: Plan Syncope Bradycardia 2 episodes of dizziness (1 last night and 1 this morning), syncopal episode witnessed by PT, approximately 30 seconds in duration. No loss of bowel or bladder. In ER, ECG sinus bradycardia, 47 bpm. Heart rate in the ER ranged from 43-62 per chart review. Blood pressure of 85/48 correlates with when heartrate was 43. CT head was negative for acute findings. 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 Denies other cardiac history. ? Continuous telemetry overnight ? Obtain TTE and carotid US ? Consider consult to cardiology and/ or neurology if indicated OA of left hip s/p left RACHEL, 07/05/2024 (per Dr. Alvarez) ? Consult to PT/OT ? Consider consult to orthopedic surgery if indicated ? Continue analgesics per ortho recs, nakita and prn bowel regimen Chronic conditions: ? HLD: Atorvastatin ? Hypothyroid: Levothyroxine CODE STATUS: Full code I reviewed the history, formulated the plan of care and confirmed the Nurse Practitioner's assessment and plan after discussion with her about the case. Spoke with orthopedics morning, will plan on stopping by to discuss the case with the patient. At this point she has failed outpatient therapy and will be attempting for inpatient rehab if patient is agreeable. - Pedro Quintero DO IP vs OBS Justification Based on differential dx, clinical care plan, and risk of adverse events, if untreated, in my clinical judgement this patient requires an acute care setting as: INPATIENT because of an expectation of an over 2 midnight stay. Estimated length of stay (# of days): 3 Documented By: TORI Merritt 07/06/24 2 345 Signed By: <Electronically signed by TORI Wen> 07/07/24 0106 <Electronically signed by Pedro Quintero DO> 07/07/24 0644 [facility] Work Phone: 1(831) 378-548603-14-2024 Hospital Discharge instructionsAmbulatory Orders* Referral to General Surgery Time Frame: 12/18/23, Location: None Selected [facility] Work Phone: 1(265) 619-252002-13-2024 History of Present illness Narrative* Melody Barry DO - 11/18/2023 11:00 AM EST Images from the original note were not included. HISTORY OF PRESENT ILLNESS: Thiago Sabillon is an 73 y.o. @ female. Chief [...] same time. ergocalciferol (Vitamin D-2) 1.25 MG (47491 UT) capsule Take 1 capsule (1.25 mg) [...] 1 tablet by mouth in the morning. D-Npsjzezomoli-Gatdq-B12-B6 (Metanx) 3-90.314-2-35 MG capsule Take 1 capsule [...] 6 months with xrays, any issues/concerns follow upsooner. Dr. Barry obtained history and examined the patient, I am acting as scribe for Dr. Barry/lauro Barry D.O. documented in [facility] [id number] Evaluation note* Encounter Date Diagnosis Assessment Notes Treatment Notes Treatment Clinical Notes Sep, Sore throat (ICD-10 - J02.9) [...] denies CP, SOB throughout. EMS transferred to [place] ER in stable condition. [facility] 08-17-2023 Evaluation note* Encounter Date Diagnosis Assessment Notes Treatment Notes Treatment Clinical Notes May, Preoperative clearance (ICD-10 - Z01.818) Denies issues with surgeries in the past. She is moving forward with the hip replacement. Reviewed preop labs earlier this month. Able to proceed w surgery. [facility] Other 08-09-2023 Evaluation note* Encounter Date Diagnosis Assessment Notes Treatment Notes Treatment Clinical Notes May, Primary osteoarthritis of right hip (ICD-10 - M16.11) Discussed putting off surgery. Will obtain labs from [facility] for her information and reassurance that they are normal, but will reconsider hip replacement with Dr. Barry in future. May, Other Pt notes mild f oot pain, declines brusing, treatment, or desire for intervention on R foot pain. Oct, Hypothyroidism, unspecified (ICD-10 - E03.9) refilled rx - chronic stable condition [facility] 07-21-2023 NotePatient here for surgery clearance. She will be having a right RACHEL with Dr. Barry at [facility]. She denies any cardiac symptoms at this time. No recent testing. Review of Systems Musculoskeletal: Positive for arthritis, back pain and joint pain. All other systems reviewed and are negative.[facility] 04-25-2023 NoteCardiology Follow Up Progress Note Chief Complaint: periop risk stratification HPI: Thiago Sabillon is a 72 y.o. female Past medical [...] a day. ergocalciferol (Vitamin D-2) 1.25 MG (21762 Units) capsule Take 1 capsule by mouth [...] Strict return precautions wer (more content not included)...[facility]07-19-2023 Evaluation note* Encounter Date Diagnosis Assessment [...] Reassured her t hat mammogram is normal. [facility] Other 04-05-2023 Evaluation note* Encounter Date Diagnosis [...] we can discuss surgery at that time. [facility] Other 02-06-2023 Evaluation note* Encounter Date Diagnosis Assessment Notes Treatment Notes Treatment Clinical Notes Nov, Foreign body of left ear, initial encounter (ICD-10 - T16.2XXA) used forceps to remove part of hearing aid from L canal Nov, Impacted cerumen, right ear (ICD-10 - H61.21) attempted to manually remove - has very hard cerumen. Recommended OTC debrox. [facility] 07-05-2021 NoteMR#: [id number] [facility] Pt. Name: Thiago Sabillon Admitted: 03/22/2021 Discharged: 03/27/2021 Date of : [...] CONDITION: Good. Stable. DISCHARGE DISPOSITION: Home with [facility]. DISCHARGE MEDICATIONS: Alendronate 35 mg once weekly, aspirin 325 mg once daily, atorvastatin 80 mg once daily, biotin oral 05293 mcg once daily, vitamin D2 1250 mcg [...] Love CNP Date Trans: 04/09/2021 05:47 P/nader [id number] [facility]06-01-2021 History general Narrative - Reported* Type Description Date Medical History Arthritis Medical History heart murmur Surgical History Heart murmur repair 03/2021 [facility] Other 06-01-2021 History general Narrative - Reported* Type Description Date Medical History Arthritis Medical History heart murmur Surgical History Heart murmur repair 03/2021 Surgical History melanoma excision Surgical History carpal tunnel release right Surgical History hernia [facility] Other Evaluation noteNo assessment information available [facility] Work Phone: [facility]No [facility] Other Evaluation note* Diagnosis Primary osteoarthritis of right hip- Primary Status post total hip replacement, right [facility] Diagnosis Onset Date Resolution Status Right hip pain acute Sebaceous cyst acute [facility] Work Phone: Evaluation note* Diagnosis Onset Date Resolution Status Right hip pain acute Sebaceous cyst acute Left hip pain acute [facility] Work Phone: Evaluation note* Diagnosis Onset Date Resolution Status Primary osteoarthritis of left hip acute [facility] Work Phone: Evaluation note* Diagnosis Onset Date Resolution Status Primary osteoarthritis of left hip acute Sinusitis, acute maxillary a cute [facility] Work Phone: Evaluation note* Diagnosis Onset Date Resolution Status Sinusitis, acute maxillary a cute Primary osteoarthritis of left hip acute [facility] Work Phone: Evaluation note* Diagnosis Onset Date Resolution Status Sinusitis, acute maxillary a cute Primary osteoarthritis of left hip acute Mitral valve replaced acute Preoperative clearance acute Primary osteoarthritis of left hip acute Tinea pedis acute [facility] Work Phone: Evaluation note* Diagnosis Onset Date Resolution Status Sinusitis, acute maxillary a cute Primary osteoarthritis of left hip acute Mitral valve replaced acute Preoperative clearance acute Primary osteoarthritis of left hip acute Tinea pedis acute Primary osteoarthritis of left hip acute [facility] Work Phone: Evaluation note* Diagnosis Onset Date Resolution Status Primary osteoarthritis of left hip acute Mitral valve replaced acute Preoperative clearance acute Primary osteoarthritis of left hip acute Tinea pedis acute Primary osteoarthritis of left hip acute [facility] Work Phone: Evaluation note* Diagnosis Onset Date Resolution Status Primary osteoarthritis of left hip acute Mitral valve replaced acute Preoperative clearance acute Primary osteoarthritis of left hip acute Tinea pedis acute Primary osteoarthritis of left hip acute Bradycardia acute Primary osteoarthritis of left hip acute S/P total left hip arthroplasty acute Syncope acute [facility] Work Phone: History general Narrative - Reported* [...] HYSTEROSCOPY 2020 Hospitalization History SEE SURGICAL HX [facility] Other History general Narrative - Reported* Type Description [...] Re[placement 05/2023 Hospitalization History SEE SURGICAL HX [facility] Other Hospital Discharge instructionsAmbulatory Orders* Initiate Home Health Time Frame: 1 Day, Location: Determined By Patient Additional Instructions Home health to manage care: Full code PT/OT/RN to eval and treat Routine vital signs Provide education on high risk falls precautions Q3D dressing change: Mepilex border foam to coccyx for protection Continue activity as previously ordered for left hip arthroplasty Monitor cardio and neuro assessment -- bradycardia, syncope, dizziness Provide education and assist with home medication regimen Care to be managed by [facility] Work Phone: Summary Purpose Family History Relationship Condition Age at Onset Recorded Date/T daya father Unknown Not Specified Unknown Relationship Condition Age at Onset Recorded Date/T daya father Unknown mother Unknown Relationship Condition Age at Onset Recorded Date/T daya father Unknown mother Unknown Hypertension Unknown Renal failure Unknown family member Macular degeneration Unknown sister Malignant neoplasm Unknown family member Malignant neoplasm Unknown grandparent Malignant neoplasm Unknown Advance Directives Advance Directive Response Recorded Date/ Time Advance Directives No August 08, 2017 2:29pm Advance Directive Response Recorded Date/ Time Advance Directives No August 08, 2017 1:29pm Chief Complaint and Reason for Visit Chief Complaint Headache, Ear Pain Amb Documentation Amb Documentation Lump on Head Reason for Visit Right hip pain Sebaceous cyst Chief Complaint Amb Documentation Amb Documentation 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 - Pain in left hip Reason for Visit Right hip pain Sebaceous cyst Left hip pain Chief 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 M25.552 - Pain in left hip ear pressure Reason for Visit Primary osteoarthrit is of left hip Chief 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 M25.552 - Pain in left hip ear pressure 3 MONTH RECHECK Reason for Visit Primary osteoarthrit is of left hip Sinusitis, acute maxillary Chief Complaint ear pressure 3 MONTH RECHECK presurgical clearance/ lft total hip Dr Borrero Reason for Visit Sinusitis, acute max illary Primary osteoarthritis of left hip Chief Complaint ear pressure 3 MONTH RECHECK presurgical clearance/ lft total hip Dr Borrero Hip pain Reason for Visit Sinusitis, acute max illary Primary osteoarthritis of left hip Mitral valve replaced Preoperative clearance Primary osteoarthritis of left hip Tinea pedis Chief Complaint ear pressure 3 MONTH RECHECK presurgical clearance/ lft total hip Dr Borrero Hip pain Pre op LTH H&P LTHA Reason for Visit Sinusitis, acute max illary Primary osteoarthritis of left hip Mitral valve replaced Preoperative clearance Primary osteoarthritis of left hip Tinea pedis Primary osteoarthritis of left hip Chief Complaint ear pressure 3 MONTH RECHECK presurgical clearance/ lft total hip Dr Borrero Hip pain Pre op LTH H&P LTHA Prolonged Reason for Visit Sinusitis, acute max illary Primary osteoarthritis of left hip Mitral valve replaced Preoperative clearance Primary osteoarthritis of left hip Tinea pedis Primary osteoarthritis of left hip Chief Complaint 3 MONTH RECHECK presurgical clearance/ lft total hip Dr Borrero Hip pain Pre op LTH H&P LTHA Prolonged Hip pain Hip pain Reason for Visit Primary osteoarthrit is of left hip Mitral valve replaced Preoperative clearance Primary osteoarthritis of left hip Tinea pedis Primary osteoarthritis of left hip Chief Complaint 3 MONTH RECHECK presurgical clearance/ lft total hip Dr Borrero Hip pain Pre op LTH H&P LTHA Prolonged Hip pain Hip pain unresponsive Reason for Visit Primary osteoarthrit is of left hip Mitral valve replaced Preoperative clearance Primary osteoarthritis of left hip Tinea pedis Primary osteoarthritis of left hip Bradycardia Primary osteoarthritis of left hip S/P total left hip arthroplasty Syncope Additional Source Comments INFORMATION SOURCE (unrecogn ized section and content) DATE CREATED AUTHOR 12/27/2021 [facility] DATE CREATED AUTHOR AUTHOR'S ORGANIZ ATION 03/14/2023 [facility] DATE CREATED AUTHOR AUTHOR'S ORGANIZ ATION 05/19/2023 [facility] DATE CREATED AUTHOR AUTHOR'S ORGANIZ ATION 08/05/2023 [facility] DATE CREATED AUTHOR AUTHOR'S ORGANIZ ATION 10/07/2023 [facility] DATE CREATED AUTHOR AUTHOR'S ORGANIZ ATION 06/28/2024 [facility] DATE CREATED AUTHOR AUTHOR'S ORGANIZ ATION 07/10/2024 [facility] REASON FOR VISIT (unrecogniz ed section and content) Reason Comments Follow-up Care Teams (unrecognized sec tion and content) Team Status: Active Member Role Status Dates Kallie Chase MD Primary Care Provider Active Team Status: Inactive Member Role Status Dates Kallie Chase MD Primary Care Provider Active Start: January 16, 2024 End: January 16, 2024 Vernell Alvarez II, MD Attending Provider Active Start: January 16, 2024 End: January 16, 2024 Team Status: Inactive Member Role Status Dates Kallie Chase MD Primary Care Provide r, Attending Provider Active Start: April 02, 2024 End: April 02, 2024 Team Status: Inactive Member Role Status Dates Kallie Chase MD Primary Care Provider Active Start: April 15, 2024 End: April 15, 2024 Vernell Alvarez II, MD Attending Provider Active Start: April 15, 2024 End: April 15, 2024 Team Status: Active Member Role Status Dates [...] December 17, 2023 End: December 17, 2023 Team Status: Active Member Role Status Dates Kallie Chase MD Primary Care Provide r, Attending Provider Active Start: January 07, 2024 Team Status: Active Member Role Status Dates Kallie Chase MD Primary Care Provider Active Start: January 16, 2024 Vernell Alvarez II, MD Attending Provider Active Start: January 16, 2024 Team Status: Inactive Member Role Status Dates Kallie Chase MD Primary Care Provider Active Vernell Alvarez II, MD Attending Provider Active Team Status: Inactive Member Role Status Dates Kallie Chase MD Primary Care Provider Active Joshua Phipps MD Attending Provider Active Hr Internship Relationship Specialty Start Date End Date Kallie Chase MD [address] [place] [address] PCP - General Family Medicine 02/24/23 Hr Internship Relationship Specialty Start Date End Date Kallie Chase MD [address] [place] [id number] PCP - General Family Medicine 02/24/23 Team Status: Inactive Member Role Status Dates Jennifer Mccarthy APRN Attending Provider Active Sta rt: October 03, 2023 End: October 03, 2023 Team Status: Active Member Role Status Dates Kallie Chase MD Primary Care Provider Active Start: April 16, 2024 Vernell Alvarez II, MD Attending Provider Active Start: April 16, 2024 Team Status: Inactive Member Role Status Dates Kallie Chase MD Primary Care Provide r, Attending Provider Active Start: May 14, 2024 End: May 14, 2024 Team Status: Inactive Member Role Status Dates Kallie Chase MD Primary Care Provider Active Start: June 21, 2024 End: June 21, 2024 Vernell Alvarez II, MD Attending Provider Active Start: June 21, 2024 End: June 21, 2024 Team Status: Active Member Role Status Dates Kallie Chase MD Primary Care Provider Active Start: June 24, 2024 Vernell Alvarez II, MD Attending Provider Active Start: June 24, 2024 Team Status: Inactive Member Role Status Dates Kallie Chase MD Primary Care Provider Active Start: June 24, 2024 End: June 24, 2024 Vernell Alvarez II, MD Attending Provider Active Start: June 24, 2024 End: June 24, 2024 Team Status: Inactive Member Role Status Dates Kallie Chase MD Primary Care Provider Active Start: June 25, 2024 End: June 25, 2024 Vernell Alvarez II, MD Attending Provider Active Start: June 25, 2024 End: June 25, 2024 Team Status: Active Member Role Status Dates Kallie Chase MD Primary Care Provider Active Start: July 05, 2024 Vernell Alvarez II, MD Attending Provi daxa, Other Provider Active Start: July 05, 2024 Team Status: Inactive Member Role Status Dates Kallie Chase MD Primary Care Provider Active Start: July 05, 2024 End: July 05, 2024 Vernell Alvarez II, MD Attending Provider Active Start: July 05, 2024 End: July 05, 2024 Team Status: Active Member Role Status Dates Jose Guthrie PA-C Emergency Provider Active Start: July 06, 2024 Kallie Chase MD Primary Care Provider Active Start: July 06, 2024 Pedro Quintero DO Admit Provider, Atte nding Provider Active Start: July 06, 2024 Team Status: Inactive Member Role Status Dates Jose Guthrie PA-C Emergency Provider Active Start: July 06, 2024 End: July 07, 2024 Kallie Chase MD Primary Care Provider Active Start: July 06, 2024 End: July 07, 2024 Pedro Quintero DO Admit Provider Active Start: July 06, 2024 End: July 07, 2024 Shaun Yang MD Attending Provider Active St art: July 06, 2024 End: July 07, 2024 Goals (unrecognized section and content) Goals may [...] BE BASED ON THE PRIMARY CLINICAL RECORDS. [facility] [employer] provides no warranty or guarantee of the accuracy or completeness of information in this document.
--- NOTE | 2024-07-12 23:21 | PC.NURSE ---
Complains of swelling to left calf, slight swelling to left leg, skin pink and warm and pulses present, no redness or increased warmth.
--- NOTE | 2024-07-12 23:36 | ED.GENADUL1 ---
HPI HPI - General Adult General Chief complaint: Recheck/Abnormal Lab/Rx Stated complaint: post op complications 07/05 l calf Time Seen by Provider: 07/12/24 23:11 Source: patient Mode of arrival: walk-in Limitations: no limitations History of Present Illness HPI narrative: This 73-year-old female who is postop left hip replacement at [facility] with Dr. Alvarez on 07/05/24 presents for evaluation of swelling in her left lower leg. She has a wound VAC on her left hip and has been wearing compression stockings. She states that earlier today she started experiencing some swelling in her left lower medial femur area and feels that her calf is also swollen. She is currently receiving physical therapy. She has a history of DVTs in the past. She is not having any chest pain or shortness of breath. She was seen at [facility] last Friday for medication reaction that she was experiencing and at that time was given a dose of Lovenox. She did not have an ultrasound done at that time. She has not had any fever. She has been ambulatory with a walker. She has not had any recent injury. Related Data Home Medications ?Medication ?Instructions ?Recorded ?Confirmed aspirin 81 mg tablet,delayed 81 mg PO DAILY 07/12/24 07/12/24 release (Adult Aspirin Regimen) biotin 10 mg tablet 10 mg PO DAILY 07/12/24 07/12/24 hydrocodone 5 mg-acetaminophen 325 1 tab PO Q6H PRN pain 07/12/24 07/12/24 mg tablet magnesium oxide 400 mg (241.3 mg 400 mg PO DAILY 07/12/24 07/12/24 magnesium) tablet vitamin E (dl, acetate) 45 mg (100 45 mg PO DAILY 07/12/24 07/12/24 unit) capsule Previous Rx's ?Medication ?Instructions ?Recorded famotidine 20 mg tablet (Pepcid) 20 mg PO BID #10 tabs 05/14/23 hydroxyzine HCl 25 mg tablet 25 mg PO Q6H PRN itching #20 tabs 05/14/23 methylprednisolone 4 mg tablets in See Rx Instructions .Route 05/14/23 a dose pack (Medrol (Archie)) .COMPLEX #21 ea amoxicillin 500 mg capsule 500 mg PO BID 10 days #20 caps 10/03/23 Allergies Allergy/AdvReac Type Severity Reaction Status Date / Time keflex AdvReac weakness Uncoded 07/12/24 23:12 Opioid HPI Opioid Management Most Recent Opioid Data: No Data to Display Review of Systems ROS Status of ROS 10 or more systems reviewed and unremarkable except as noted in history and below [facility] Social History Smoking status: Never smoker Little interest or pleasure in doing things: not at all Feeling down, depressed, or hopeless: not at all Exam Narrative Exam Narrative: Vital signs and Nursing Notes reviewed: Patient is afebrile with a normal pulse, blood pressure is mildly elevated 154/77, she is not hypoxic with pulse ox of 100% on room air General: Awake, alert, oriented, no acute distress, lying comfortably on the stretcher, thin elderly female, no distress noted HEENT: Normocephalic atraumatic, mucous membranes are moist and pink, eyes are clear, normal conjunctiva, vision is grossly intact Chest: Lungs are clear to auscultation with good air entry, there is no wheezing rhonchi or rales appreciated no accessory muscle use, patient is speaking in complete sentences-no chest wall tenderness to palpation CVS: Regular rate and rhythm S1-S2, no murmurs rubs or gallops, pulses are brisk and equal bilaterally ABD: Soft, nondistended, nontender, no rebound guarding or rigidity, bowel sounds are normal, no pulsatile masses appreciated Extremities: There is a wound VAC present on the left lateral hip. Adjacent to the wound VAC I do not appreciate any redness swelling or induration. There is mild edema with an indentation where the patient formally had on compression stockings on the left leg. There is very minimal edema at the medial aspect of the left knee. The left calf is soft with no palpable cords, induration, erythema or other notable abnormality. Feet are warm and sensate. Dorsalis pedis and posterior tibialis pulses are brisk and equal bilaterally Skin: Normal in appearance without rash,pallor, petechiae or purpura Neuro: No focal deficits Constitutional Vital Signs, click to edit/add: Last Vital Signs Temp 97.1 F L 07/12/24 23:12 Pulse 68 07/12/24 23:12 Resp 18 07/12/24 23:12 BP 154/77 H 07/12/24 23:12 Pulse Ox 100 07/12/24 23:12 O2 Del Method Room Air 07/12/24 23:12 Course Vital Signs Vital signs: Vital Signs Temperature 97.1 F L 07/12/24 23:12 Pulse Rate 68 07/12/24 23:12 Respiratory Rate 18 07/12/24 23:12 Blood Pressure 154/77 H 07/12/24 23:12 Pulse Oximetry 100 07/12/24 23:12 Oxygen Delivery Method Room Air 07/12/24 23:12 Temperature 97.1 F L 07/12/24 23:12 Pulse Rate 68 07/12/24 23:12 Respiratory Rate 18 07/12/24 23:12 Blood Pressure 154/77 H 07/12/24 23:12 Pulse Oximetry 100 07/12/24 23:12 Oxygen Delivery Method Room Air 07/12/24 23:12 Medical Decision Making MDM Narrative Medical decision making narrative: This 73-year-old female who is 9 days postop left hip replacement presents for evaluation of swelling in her left leg that she states started earlier in the day. She did receive a dose of Lovenox last week after going to the 4-year-old in the emergency department for medication reaction. She has not had a fever. Clinically I do not appreciate any signs of a DVT but I explained to her that DVTs can often be small and unable to appreciate clinically. Ultrasound is not available at this time and she was empirically treated with a dose of Eliquis in the emergency department. She agrees to return in the the morning for a duplex ultrasound of the left lower extremity and will be referred to the emergency department for a positive finding. She is otherwise hemodynamically stable with no chest pain shortness of breath dizziness tachycardia or unstable vital signs and stable for discharge. Discharge Plan Discharge Chief Complaint: Recheck/Abnormal Lab/Rx Clinical Impression: Left leg swelling Patient Disposition: Home, Self-Care Time of Disposition Decision: 23:35 Condition: Good Prescriptions / Home Meds: No Action hydrocodone-acetaminophen 5-325 mg tablet 1 tab PO Q6H PRN (Reason: pain) vitamin E (dl, acetate) 45 mg (100 unit) capsule 45 mg PO DAILY aspirin [Adult Aspirin Regimen] 81 mg tablet,delayed release (DR/EC) 81 mg PO DAILY biotin 10 mg tablet 10 mg PO DAILY magnesium oxide 400 mg (241.3 mg magnesium) tablet 400 mg PO DAILY famotidine [Pepcid] 20 mg tablet 20 mg PO BID Qty: 10 0RF hydroxyzine HCl 25 mg tablet 25 mg PO Q6H PRN (Reason: itching) Qty: 20 0RF methylprednisolone [Medrol (Archie)] 4 mg tablets,dose pack See Rx Instructions .ROUTE .COMPLEX Qty: 21 0RF Rx Instructions: Taper as directed amoxicillin 500 mg capsule 500 mg PO BID 10 Days Qty: 20 0RF Print Language: Citizen Of [place] Additional Instructions: Follow-up tomorrow at 8:30 AM for an ultrasound of your left leg. Please check into registration approximately 15 minutes early. Continue your current postop treatment regimen. Referrals: Anahi Branch MD [Primary Care Provider] - 1 week Discharge Date/Time: 07/12/24 23:52
[2024-07-12] MEDS: APIXABAN 5 MG TABLET 10 MG PO (23:46)
== END 2024-07-12 23:52 | disposition home or self-care (01) ==
PROVIDERS: Emergency Provider Emergency Medicine; PCP Family Medicine
DX: M79.89 Other specified soft tissue disorders (principal); Z96.642 Presence of left artificial hip joint; Z86.718 Personal history of other venous thrombosis and embolism
CPT/HCPCS: 99283

== ENCOUNTER 2024-07-13 08:27 | Outpatient (OUT) | payer MEDICARE, SELFPAY ==
--- NOTE | 2024-07-13 08:41 | US_ITS ---
[facility] [id number] Patient Name: DARYL SABILLON MRN: [id number] date: 1950 Sex: F Assigned Patient Location: US Current Patient Location: US Accession/Order Number: [id number] Exam Date: 07/13/2024 08:42 Report Date: 07/13/2024 09:12 At the request of: LISA ORDONEZ Procedure: US venous doppler LE LT EXAMINATION: US venous doppler LE LT HISTORY: Post Operative Hip Replacement ; left lower extremity swelling COMPARISON: No relevant comparison available. FINDINGS: REGION: Left lower extremity THROMBI: None. COMPRESSIBILITY: Normal compressibility. FLOW: Normal waveform and antegrade flow between 5 and 20 cm/s. 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 US/US venous doppler LE LT IMPRESSION: 1. No deep vein thrombus within the left lower extremity. Electronically authenticated by: JACK SABILLON Date: 07/13/2024 09:12
== END 2024-07-13 08:28 | disposition home or self-care (01) ==
LOC: US 08:29
PROVIDERS: PCP Family Medicine; Visit Provider Emergency Medicine
DX: M24.652 Ankylosis, left hip (principal); Z98.890 Other specified postprocedural states; R60.0 Localized edema
CPT/HCPCS: 93971

== ENCOUNTER 2024-07-23 07:58 | Outpatient (RCR) | payer MEDICARE, SELFPAY | END 2024-10-05 19:00 | disposition home or self-care (01) | LOC: PT 07:58 | PROVIDERS: PCP Family Medicine; Visit Provider Orthopaedic Surgery | DX: R26.2 Difficulty in walking, not elsewhere classified (principal); Z96.642 Presence of left artificial hip joint | CPT/HCPCS: 97110; 97112; 97140; 97163 ==

== ENCOUNTER 2024-08-20 10:17 | Outpatient (OUT) | payer MEDICARE, SELFPAY ==
[2024-08-20 11:56] LABS: Calcium 8.9 mg/dL (8.5-10.1); Estimated GFR (African America >60 (>=60 mL/min/1.73m^2); Estimated GFR (Non-African Ame >60 (>=60 mL/min/1.73m^2); Magnesium 2.1 mg/dL (1.8-2.4); Phosphorus 3.6 mg/dL (2.6-4.7)
== END 2024-08-20 10:18 | disposition home or self-care (01) ==
PROVIDERS: PCP Family Medicine; Visit Provider Registered Nurse
DX: M81.0 Age-related osteoporosis without current pathological fracture (principal); Z79.899 Other long term (current) drug therapy
CPT/HCPCS: 36415; 82310; 82565; 83735; 84100; 84520

== ENCOUNTER 2024-08-20 10:20 | Outpatient (OUT) | payer MEDICARE, SELFPAY ==
[2024-08-20 12:02] LABS: Free T4 1.18 ng/dL (0.76-1.46)
[2024-08-20 12:40] LABS: Thyroid Stimulating Hormone 0.562 uIU/mL (0.358-3.740)
== END 2024-08-20 10:21 | disposition home or self-care (01) ==
LOC: LAB 10:20
PROVIDERS: PCP Family Medicine; Visit Provider Family Medicine
DX: M81.0 Age-related osteoporosis without current pathological fracture (principal); Z79.899 Other long term (current) drug therapy; E03.9 Hypothyroidism, unspecified
CPT/HCPCS: 36415; 82310; 82565; 83735; 84100; 84439; 84443; 84520

== ENCOUNTER 2024-10-06 10:39 | Outpatient (RCR) | payer MEDICARE, SELFPAY | END 2024-12-09 11:11 | disposition home or self-care (01) | LOC: PT 10:39 | PROVIDERS: PCP Family Medicine; Visit Provider Orthopaedic Surgery | DX: Z96.642 Presence of left artificial hip joint (principal) | CPT/HCPCS: 97112; 97140 ==

== ENCOUNTER 2024-12-16 07:12 | Outpatient (RCR) | payer MEDICARE, SELFPAY | END 2025-02-09 08:18 | disposition home or self-care (01) | LOC: PT 07:12 | PROVIDERS: PCP Family Medicine; Visit Provider Family Medicine | DX: M54.50 Low back pain, unspecified (principal) | CPT/HCPCS: 97110; 97112; 97140; 97163 ==

== ENCOUNTER 2025-02-14 07:21 | Outpatient (OUT) | payer MEDICARE, SELFPAY ==
--- OUTSIDE RECORDS SUMMARY | 2025-02-14 07:26 | XMS_ITS | CCD ---
Author Organization [facility] Care Team Providers Care Log Rafter Name Role Phone SELF, REFERRED Referring Unavailable MASROOR, CHELE Admitting Unavailable MASROOR, CHELE Attending Unavailable SELF, REFERRED Primary Care Unavailable KALLIE CHASE Primary Care Unavailable KALLIE CHASE Referring Unavailable MASROOR, CHELE Attending Unavailable MASROOR, CHELE Admitting Unavailable MASROOR, CHELE Surgeon Unavailable ME Procedure Practitioner Unavailab le SELF, REFERRED Referring Unavailable ELTAHAWY, EHAB A Admitting Unavailable ELTAHAWY, EHAB A Attending Unavailable SELF, REFERRED Primary Care Unavailable Kallie Chase Unavailable Vernell Alvarez II Unavailable MD Kallie Chase Primary Care Provider MD Vernell Alvarez II Attending Provider [phone] DR KALLIE CHASE Primary Care Unavailable MISC, DR HAMMOND Admitting Unavailable MISC, DR HAMMOND Attending Unavailable CHASE, DR KALLIE Benítez Primary Care Unavailable ELTAHAWY, DR RODRIGUEZ Admitting Unavailable ELTAHAWY, DR RODRIGUEZ Attending Unavailable ELTAHAWY, DR RODRIGUEZ Consulting Unavailable ELTAHAWY, DR RODRIGUEZ Admitting Unavailable CHASEDR KALLIE Primary Care Unavailable ELTAHAWY, DR RODRIGUEZ Attending Unavailable ELTAHAWY, DR RODRIGUEZ Consulting Unavailable DR KALLIE CHASE Primary Care Unavailable ANGELITO, LISA Admitting Unavailable ANGELITO, LISA Attending Unavailable ANGELITO, LISA Consulting Unavailable SALVATORE, DR KALLIE Benítez Primary Care Unavailable KARASIK ., DR BAUMANN Attending Unavailabl e KARASIK ., DR BAUMANN Consulting Unavailabl e KARASIK ., DR BAUMANN Admitting Unavailmaine e CHASE, DR KALLIE Benítez Primary Care Unavailable KARASIK ., DR BAUMANN Admitting Unavailabl e KARASIK ., DR BAUMANN Attending Unavailabl e SUREKHA, DR ASHFORD Consulting Unavailable SALVATORE, DR KALLIE Benítez Primary Care Unavailable SUREKHA, DR ASHFORD Admitting Unavailable SUREKHA, DR ASHFORD Attending Unavailable RAMANDEEP, DR JACK Mercer Consulting Unavailable BRENNA BROUSSARD Attending Unavailable MD Kallie Chase Primary Care Provider MD Joshua Phipps Attending Provider [phone] Jennifer Mccarthy Unavailable Kallie Chase MD Primary Care Provider MD Kallie Chsae Primary Care Provider MD Vernell Alvarez II Attending Provider MD Kallie Chase Primary Care Provider MD Vernell Alvarez II Attending Provider CASSANDRA Guthrie Emergency Provider DO Pedro Quintero Admit Provider [phone] DO Pedro Quintero Attending Provider MD Shaun Yang Attending Provider YANDY HECTOR Attending Unavailable YANDY HECTOR Referring Unavailable KALLIE CHASE Primary Care Unavailable Kallie Chase MD Primary Care Provider Kallie Chase MD Primary Care Provider Vernell Alvarez MD Attending Provider Jose Guthrie PA-C Emergency Provider [phone] Pedro Quintero DO Admit Provider Shaun Yang MD Attending Provider Vernell Alvarez II Admitting Unavailabl e ChaseKallie E Primary Care Unavailable Vernell Alvarez II Attending Unavailabl e Chase, Kallie E Primary Care Unavailable Shaun Yang Attending Unavailable Pedro Quintero Admitting Unavailable Vernell Alvarez II Admitting Unavailabl e Chase, Kallie E Primary Care Unavailable Antonio RODRIGUEZ, Vernell Huizar Attending Unavailabl e Kasbeer II, Vernell M Admitting Unavailabl e Chase, Kallie E Primary Care Unavailable Antonio II, Vernell M Attending Unavailabl e Chase, Kallie E Primary Care Unavailable Kasbeer II, Vernell M Admitting Unavailabl e Kasbeer II, Vernell M Attending Unavailabl e Chase, Kallie E Primary Care Unavailable Kasbeer II, Vernell M Attending Unavailabl e Antonio II, Vernell M Admitting Unavailabl e Chase, Kallie E Primary Care Unavailable Kasbeer II, Vernell M Attending Unavailabl e Kasbeer II, Vernell M Admitting Unavailabl e Chase, Kallie E Primary Care Unavailable Jean, Avelino Levi Attending Unavailable Avelino Pena Admitting Unavailable SANDY DAY Attending Unavailable BRAXTON JACOBSEN Attending Unavailable DAVION, DASIA Walker Attending Unavailable ALEX DOSHI Attending Unavailable JHONNY, MELODY Walker Attending Unavailable JHONNY, MELODY Walker Referring Unavailable THADDEUS MCCLENDON Attending Unavailable DAVION, DASIA Walker Attending Unavailable Allergies Allergy Classification Reported Allergen(s) Allergy Type Date of Onset Reaction(s) Facility Cephalosporins (antibiotic) (2 sources) Cephalosporins (Antibiotic) Drug Allergy 4 [facility] (7 sources) Cephalexin Drug Allergy 1 leg swelling [facility] (20 sources) Cephalexin; Translations: [CEPHALEXIN] Drug Allergy 7 Other, Unknown [facility] Comment on above: severe muscle weakne ss (20 sources) Cephalosporins (Antibiotic); Translations: [Cephalosporins] Allergy to substance 4 [facility] Medications Current Medications Medication Drug Class(es) Dates Sig (Normalized) Sig (Original) alendronic acid 35 mg oral tablet (16 sources) Bisphosphonate End: 09-14-2024 take 1 tablet by mouth once alendronate (Fosamax) 35 MG tablet TAKE ONE TABLET BY MOUTH ONCE WEELKY 09/14/2024 Discontinued take 1 tablet by mouth once kasi y Fosamax 70 MG 1 tablet 30 minutes before the first food, beverage or medicine of the day with plain water Orally Active atorvastatin 80 mg oral tablet (20 sources) HMG-CoA Reductase Inhibitor Start: 08-04-2023 End: 08-09-2025 take 1 tablet by mouth once daily Atorvastatin 80 mg tablet Active 80 MG PO Daily July 04, 2024 11:00pm take 1 tablet by jessica every twenty-four hours Lipitor 10 MG 1 tablet Orally Once a day Active biotin 10 mg oral tablet (20 sources) Start: 05-05-2023 End: 11-29-2025 take 4 tablets by mouth once daily biotin 10 MG tablet Indications: Lumbosacral radiculopathy , Disturbance of skin sensation , Carpal tunnel syndrome of right wrist , Carpal tunnel syndrome on left Take 4 tablets (40 mg) by mouth Daily 360 tablet 3 11/29/2024 11/29/2025 Active Start: 08-11-2017 take 1 tablet by mouth once da melanie Biotin 10 mg Tablet Active 10 MG PO Daily August 11, 2017 12:00am take 1 tablet by mouth twice larry ly biotin 10 mg tablet Take 1 tablet (10 mg) by mouth twice a day. Active take 4 capsules by m outh every twenty-four hours Biotin 1 MG 4 tablets Orally Once a day Active take 4 tablets by mouth once larry ly Biotin 1 MG 4 tablets Orally Once a day Active calcium citrate 1500 mg / cholecalciferol 200 unt oral tablet (20 sources) Vitamin D Start: 06-21-2024 Calcium Citrat e-Vitamin D 315-5 MG-MCG tablet 2 tablets 06/21/2024 Active Start: 06-21-2024 take 2 tablets by mo [facility] once daily Calcium Citrate-Vitamin D3 (Calcium Citrate + D) 315 mg-5 mcg (200 unit) tablet Active 2 TAB PO Daily June 20, 2024 11:00pm celecoxib 200 mg oral capsule (11 sources) Nonsteroidal Anti-inflammatory Drug Start: 06-23-2024 take 1 capsule by mouth once daily celecoxib (CeleBREX) 200 mg capsule Take 1 capsule (200 mg) by mouth once daily. 06/23/2024 Active Start: 06-23-2024 take 1 capsule by mo [facility] twice daily Celecoxib 200 mg capsule Active 200 MG PO Twice daily June 22, 2024 11:00pm DO NOT RECONCILE UNTIL DOS:07/05/2024 MED TO BED clindamycin 300 mg oral capsule (14 sources) Lincosamide Antibacterial Start: 06-22-2024 End: 06-22-2024 take 2 capsules by mouth once at mealtime clindamycin (Cleocin) 300 MG capsule TAKE 2 CAPSULES BY MOUTH 1 TIME FOR 1 DOSE 30-60 MINS BEFORE DENTAL PROCEDURE WITH FOOD 06/22/2024 Active Start: 11-18-2023 End: 11-18-2023 take 2 capsules [...] 1 ml denosumab 60 mg/ml prefilled syringe (20 sources) RANK Ligand Inhibitor Start: 05-14-2024 denosumab (Prolia) 60 MG/ML solution prefilled syringe EVERY 6 MONTHS 05/14/2024 Active dexamethasone 2 mg oral tablet (17 sources) Corticosteroid dexAMETHasone (Decadron) 2 MG tablet 1 (one) time each day at the same time. Active docosahexaenoic acid 120 mg / eicosapentaenoic acid 180 mg oral capsule (17 sources) omega-3 (Fish Oi l) 1000 MG capsule 1 capsule 1 (one) time each day at the same time. Active ergocalciferol 1.25 mg oral capsule (20 sources) Provitamin D2 Compound Start: 06-21-2024 take 1 capsule by mouth once daily Ergocalciferol (Vitamin D2) (Vitamin D2) 1,250 mcg (50,000 unit) capsule Active 1250 MCG PO Daily June 20, 2024 11:00pm Start: 05-05-2023 End: 11-29-2025 take 1 capsule by mouth every week ergocalciferol (Vitamin D-2) 1.25 MG (12871 UT) capsule Indications: Vitamin D deficiency Take 1 capsule (1.25 mg) by mouth 1 (one) time per week 12 capsule 3 11/29/2024 11/29/2025 Active Start: 08-12-2019 take 1 capsule by mo uth every week ergocalciferol (Vitamin D-2) 1.25 MG (29982 UT) capsule Take 1 capsule (50,000 Units) by mouth 1 (one) time per week. 08/12/2019 Active ferrous sulfate 159 mg extended release oral tablet (11 sources) Start: 06-21-2024 take 1 tablet by mouth once daily Ferrous Sulfate, Dried (Iron) 159 mg (45 mg iron) tablet extended release Active 159 MG PO Daily June 20, 2024 11:00pm folic acid 1 mg oral tablet (20 sources) Start: 08-11-2017 End: 11-29-2025 take 1 tablet by mouth once daily folic acid (Folvite) 1 MG tablet Indications: Lumbosacral radiculopathy Take 1 tablet (1 mg) by mouth Daily 90 tablet 3 11/29/2024 11/29/2025 Active Xstp-Fvgwb-Xa4-Dha-Epa- Fish-St (Glucosamine Chondroitin Plus) [phone] mg Capsule (19 sources) Start: 08-11-2017 take 1 capsule by mouth once daily Ehfl-Dppry-Zb6-Dha-Epa-F zane-St (Glucosamine Chondroitin Plus) 562-313-07-54 mg Capsule Active 1 CAP PO Daily August 11, 2017 12:00am Start: 08-11-2017 take 1 capsule by mouth once daily Klfh-Opqmq-Lw6-Qeg-Eqw-Wbom-St (Glucosam ine Chondroitin Plus) [phone] mg Capsule Active 1 CAP PO Daily August 11, 2017 1:00am glucosamine sulfate 500 mg oral capsule (18 sources) Glucosamine 500 MG capsule 1 (one) time each day at the same time. Active Glucosamine Chondroitin Plus - (8 sources) Glucosamine Jann droitin Plus - as directed Orally Active Ketoprofen (19 sources) Nonsteroidal Anti-inflammatory Drug Start: 11-29-2024 End: 11-29-2025 Ketoprofen 10 % cream Indications: Lumbosacral radiculopathy Apply 1 application topically every 8 (eight) hours 120 g 11 11/29/2024 11/29/2025 Active Start: 05-05-2024 End: 11-29-2024 Ketoprofen 10 % cream Indica tions: Lumbosacral radiculopathy Apply 1 application topically every 8 (eight) hours 120 g 11 05/05/2024 11/29/2024 Discontinued (Reorder) Start: 05-05-2024 End: 05-05-2025 Ketoprofen 10 % cream Indica tions: Lumbosacral radiculopathy Apply 1 application topically every 8 (eight) hours 120 g 11 05/05/2024 05/05/2025 Active Start: 05-05-2023 End: 05-04-2024 Ketoprofen 10 % cream Indica tions: Lumbosacral radiculopathy Apply 1 application topically every 8 (eight) hours. 120 g 11 05/05/2023 05/04/2024 Active L-METHYLFOLATE CALCIUM PO (17 sources) take 1 tablet by jessica th in the morning L-METHYLFOLATE CALCIUM PO Take 1 tablet by mouth in the morning. Active take 1 tablet by mouth in the mo rning L-METHYLFOLATE CALCIUM PO Take 1 tablet by mouth in the morning. 0 Active J-Uyjjbojquera-Mvude-B12-B6 (Metanx) 3-90.314-2-35 MG capsule (19 sources) Start: 11-29-2024 End: 11-29-2025 C-Lwdwkakguzoe-Pyvnn-B12-B6 (Metanx) 3-90.314-2-35 MG capsule Indications: Lumbosacral radiculopathy , Disturbance of skin sensation Take 1 capsule by mouth Daily 90 capsule 3 11/29/2024 11/29/2025 Active Start: 05-05-2024 End: 11-29-2024 V-Isgwjqffaoto-Zbyus-B12-B6 (Metanx) 3-90.314-2-35 MG capsule Indications: Lumbosacral radiculopathy , Disturbance of skin sensation Take 1 capsule by mouth Daily 90 capsule 3 05/05/2024 11/29/2024 Discontinued (Reorder) Start: 05-05-2024 End: 05-05-2025 E-Afmtafwbufpf-Zpyvh-B12-B6 (Metanx) 3-90.314-2-35 MG capsule Indications: Lumbosacral radiculopathy , Disturbance of skin sensation Take 1 capsule by mouth Daily 90 capsule 3 05/05/2024 05/05/2025 Active Start: 05-05-2023 End: 05-04-2024 L-Xaoevuxsjgek-Vllnl-B12-B6 (Metanx) 3-90.314-2-35 MG capsule Indications: Lumbosacral radiculopathy , Disturbance of skin sensation Take 1 capsule by mouth in the morning. 90 capsule 3 05/05/2023 05/04/2024 Active levothyroxine sodium 0.05 mg oral tablet (20 sources) l-Thyroxine Start: 06-23-2024 take 1 tablet by mouth once daily Levothyroxine 50 mcg tablet Active 0 .ROUTE .COMPLEX June 23, 2024 12:35pm TAKE 1 TABLET BY MOUTH EVERY DAY Start: 08-11-2017 End: 06-23-2024 take 1 tablet by mouth once daily Levothyroxine 50 mcg tablet Discontinued 50 MCG PO Daily December 15, 2023 12:12pm January 09, 2024 9:43pm take 1 tablet by jessica th once daily Levothyroxine Sodium 50 MCG TAKE ONE TABLET BY MOUTH ONCE DAILY for 90 days Active magnesium gluconate 550 mg oral tablet (9 sources) take 1 tablet by jessica th every twenty-four hours Magnesium 30 MG 1 tablet with a meal Orally Once a day Active magnesium oxide 400 mg oral tablet (20 sources) Start: 05-05-2023 End: 11-29-2025 take 1 tablet by mouth at bedtime magnesium oxide (Mag-Ox) 400 MG tablet Indications: Lumbosacral radiculopathy Take 1 tablet (400 mg) by mouth at bedtime 90 tablet 3 11/29/2024 11/29/2025 Active Mecobal-Levomefolat Ca-B6 Phos (Foltanx) 3-35-2 mg Tablet (19 sources) Start: 08-11-2017 take 1 tablet by mouth once daily Mecobal-Levomefolat Ca-B6 Phos (Foltanx) 3-35-2 mg Tablet Active 1 TAB PO Daily August 11, 2017 12:00am Start: 08-11-2017 take 1 tablet by jessica th once daily Mecobal-Levomefolat Ca-B6 Phos (Foltanx) 3-35-2 mg Tablet Active 1 TAB PO Daily August 11, 2017 1:00am melatonin 2.5 mg chewable tablet (18 sources) Melatonin 2.5 MG chewable tablet Chew. Active meloxicam 15 mg oral tablet (7 sources) Nonsteroidal Anti-inflammatory Drug take 1 tablet by mouth every twenty-four hours Meloxicam 15 MG 1 tablet Orally Once a day Active Metanx 3-90.314-2-35 MG (9 sources) Metanx 3-90.314- 2-35 MG as directed Orally Active Misc Natural Products (YumVs Beet Root-Tart Diallo) 250-0.5 MG chewable tablet (17 sources) Misc Natural Products (YumVs Beet Root-Tart Diallo) 250-0.5 MG chewable tablet Chew. Active Misc Natural Pro ducts (YumVs Beet Root-Tart Diallo) 250-0.5 MG chewable tablet Chew. 0 Active Multiple Vitamins-Minerals (Ocular Vitamins) tablet (10 sources) Multiple Vitamins-Minerals (Ocular Vitamins) tablet take 2 tablet by oral route Active naproxen 250 mg oral tablet (17 sources) Nonsteroidal Anti-inflammatory Drug naproxen (Naprosyn) 250 MG tablet Take by mouth. Active Wayan 3 (8 sources) Wayan 3 Active Wayan 3,6,9 Combination No.7 (Wayan Dha) 92 mg (43 mg-22 [id number]) Tablet,Chewable (19 sources) Start: take 1 tablet by mouth once daily Wayan 3,6,9 Combination No.7 (Wayan Dha) 92 mg (43 mg-22 [id number]) Tablet,Chewable Active 1 TAB PO Daily August 11, 2017 12:00am Start: 08-11-2017 take 1 tablet by jessica th once daily Wayan 3,6,9 Combination No.7 (Wayan Dha) 92 mg (43 mg-22 [id number]) Tablet,Chewable Active 1 TAB PO Daily August 11, 2017 1:00am omega-3 acid ethyl esters (nursing home) 1000 mg oral capsule (1 source) omega-3 acid eth yl esters (Lovaza) 1 gram capsule Take 2 capsules (2 g) by mouth twice a day. Active Red Beet Root-Sour Diallo Ext (9 sources) Start: 06-21-2024 take 1 tablet by mouth once daily Red Beet Root-Sour Diallo Ext Active 1 TAB PO Daily June 21, 2024 12:00am Start: 06-21-2024 Red Beet Root- Sour Diallo Ext Active TAB PO June 21, 2024 12:00am Red Beet Root-Sour Diallo Ex t 250-0.5 mg tablet,chewable (2 sources) Start: 06-21-2024 Red Beet Root- Sour Diallo Ext 250-0.5 mg tablet,chewable Active 1 TAB PO Daily June 20, 2024 11:00pm sodium fluoride 0.011 mg/mg oral gel (18 sources) sodium flouride ([place], [place]) 1.1 % dental gel USE DIRECTED TWICE A DAY Active fluoride, sodium , 1.1 % gel USE DIRECTED TWICE A DAY Active tiZANidine 4 mg oral tablet (17 sources) Central alpha-2 Adrenergic Agonist take 1 tablet by mouth at bedtime tiZANidine (Zanaflex) 4 MG tablet TAKE ONE-HALF TO ONE TABLET BY MOUTH AT BEDTIME Active Turmeric extract (20 sources) Start: 06-21-2024 take 1 capsule by mouth once daily Turmeric 400 mg capsule Active 1 MG PO Daily June 20, 2024 11:00pm Start: 06-21-2024 take 1 mg by mouth once daily Turmeric Active 1 MG PO Daily June 21, 2024 12:00am Start: 06-21-2024 Turmeric Activ e MG PO June 21, 2024 12:00am take 1 capsule by mo [facility] twice daily turmeric 400 mg capsule Take 1 capsule by mouth twice a day. Active Turmeric (QC Diane reji Complex) 500 MG capsule 1 (one) time each day at the same time. Active Turmeric (QC Diane reji Complex) 500 MG capsule 1 (one) time each day at the same time. 0 Active Turmeric Active valACYclovir 1000 mg oral tablet (17 sources) Herpesvirus Nucleoside Analog DNA Polymerase Inhibitor, Herpes Simplex Virus Nucleoside Analog DNA Polymerase Inhibitor, Herpes Zoster Virus Nucleoside Analog DNA Polymerase Inhibitor Start: 04-14-2023 valACYclovir (Valtrex) 1 g tablet Indications: Herpes simplex labialis Take 2 tablets twice a day x 1 day at first start of outbreak 4 tablet 04/14/2023 Active Vit A,C And Z-Xqgywy-Dhegquuh (Eye Health Plus Lutein) 1,000 unit-200 mg-60 unit-2 mg Tablet (19 sources) Start: 08-11-2017 take 1 tablet by mouth once daily Vit A,C And G-Jhrndg-Zlqgfpyp (Eye Health Plus Lutein) 1,000 unit-200 mg-60 unit-2 mg Tablet Active 1 TAB PO Daily August 11, 2017 12:00am Start: 08-11-2017 take 1 tablet by [facility] once daily Vit A,C And F-Nzkxzy-Recfrndz (Eye Health Plus Lutein) 1,000 unit-200 mg-60 unit-2 mg Tablet Active 1 TAB PO Daily August 11, 2017 1:00am vitamin e 100 unt oral capsule (20 sources) Start: 11-29-2024 End: 11-29-2025 take 1 capsule by mouth once daily Vitamin E 45 MG (100 UNIT) capsule Indications: Disturbance of skin sensation Take 1 capsule by mouth Daily 90 capsule 2 11/29/2024 11/29/2025 Active Start: 06-21-2024 take 45 mg by mouth once daily Vitamin E Active 45 MG PO Daily June 21, 2024 12:00am Start: 01-26-2024 End: 11-29-2024 take 1 capsule by mouth in the morning Vitamin E 45 MG (100 UNIT) capsule TAKE 1 CAPSULE (100 UNITS) BY MOUTH IN THE MORNING. 01/26/2024 11/29/2024 Discontinued (Reorder) Start: 05-05-2023 End: 05-04-2024 take 1 capsule by mouth in the morning alpha tocopherol (Vitamin E) 100 units capsule Indications: Memory loss Take 1 capsule (100 Units) by mouth in the morning. 90 capsule 3 05/05/2023 05/04/2024 Active take 1 capsule by mo [facility] once daily alpha tocopherol (Vitamin E) 670 mg (1,000 unit) capsule Take 1 capsule (1,000 Units) by mouth once daily. Active Vitamin E 1000 U NIT as directed Orally Active Vitamin E 100 unit capsule (2 sources) Start: 06-21-2024 Vitamin E 100 unit capsule Active 45 MG PO Daily June 20, 2024 11:00pm Vitamin E 1000 UNIT (7 sources) Vitamin E 1000 U NIT as directed Orally Active vitamin k2 0.1 mg oral capsule (20 sources) Start: 05-14-2024 Menaquinone-7 (Vitamin K2) 100 MCG capsule Daily 05/14/2024 Active Zinc (11 sources) Start: 06-21-2024 take 1 tablet by mouth three times weekly Zinc 50 mg tablet Active 50 MG PO 3 Times a week June 20, 2024 11:00pm Start: 06-21-2024 take 50 mg by mouth three times weekly Zinc Active 50 MG PO 3 Times a week June 21, 2024 12:00am zinc gluconate 50 mg oral tablet (18 sources) take 1 tablet by jessica in the morning zinc gluconate 50 MG tablet Take 50 mg by mouth in the morning. Active Completed/Discontinued Medications Medication Drug Class(es) Dates Sig (Normalized) Sig (Original) acetaminophen 500 mg oral tablet (10 sources) Start: 06-23-2024 End: 08-18-2024 take 2 tablets by mouth every eight hours Acetaminophen 500 mg tablet Discontinued 1000 MG PO Q8H 180 June 22, 2024 11:00pm August 18, 2024 11:10am DO NOT RECONCILE UNTIL DOS:07/05/2024 MED TO BED Start: 06-23-2024 take 1000 mg by mout h every eight hours Acetaminophen Active 1000 MG PO Q8H 180 June 23, 2024 12:00am DO NOT RECONCILE UNTIL DOS:07/05/2024 MED TO BED acetaminophen 325 mg / HYDROcodone bitartrate 5 mg oral tablet (5 sources) Opioid Agonist Start: 07-07-2024 End: 07-21-2024 take 1 tablet by mouth every six hours as needed for pain Hydrocodone-Acetaminophen 5-325 mg tablet Discontinued 1 TAB PO Every 6 hours as needed for pain 14 July 07, 2024 July 21, 2024 12:32pm aspirin 81 mg delayed release oral tablet (20 sources) Platelet Aggregation Inhibitor, Nonsteroidal Anti-inflammator y Drug Start: 06-23-2024 End: 07-06-2024 take 1 tablet by mouth twice daily Aspirin 81 mg tablet,delayed release (DR/EC) Discontinued 81 MG PO Twice daily 70 35 June 22, 2024 11:00pm July 06, 2024 5:11pm DO NOT RECONCILE UNTIL DOS:07/05/2024 MED TO BED Start: 08-11-2017 take 1 tablet by jessica th once daily Aspirin (Aspir-81) 81 mg Tablet,Delayed Release (Dr/Ec) Active 162 MG PO Daily August 11, 2017 12:00am Start: 08-11-2017 take 1 tablet by jessica th once daily Aspirin (Aspir-81) 81 mg Tablet,Delayed Release (Dr/Ec) Active 1 TAB PO Daily August 11, 2017 1:00am ASPIRIN 81 MG ch ewable tablet 1 (one) time each day at the same time. Active take 2 tablets by mo uth once daily in the morning aspirin 81 mg EC tablet Take 2 tablets (162 mg) by mouth once daily in the morning. Active azithromycin 250 mg oral tablet (14 sources) Macrolide Antimicrobial Start: 04-02-2024 End: 05-14-2024 Azithromycin 250 mg tablet Discontinued 0 PO .COMPLEX April 01, 2024 11:00pm May 14, 2024 7:41am For 250 mg dose pack: take 500 mg today (day 1), then 250 mg for 4 days (days 2-5) PO Start: 04-02-2024 End: 05-14-2024 Azithromycin Discontinued 0 [...] days (days 2-5) PO Boost Protein Shakes (12 sources) Start: 04-30-2024 End: 04-30-2024 Boost Protein Shakes Discont inued 0 PO Twice daily 112 56 April 29, 2024 11:00pm April 30, 2024 8:50am 8 Fl Ounces orally twice daily; Take 4 weeks before surgery, and 4 weeks after surgery Chocolate Flavor Start: 04-30-2024 End: 04-30-2024 Boost Protein Shakes Discont inued 0 PO Twice daily 112 56 April 30, 2024 12:00am April 30, 2024 9:50am 8 Fl Ounces orally twice daily; Take 4 weeks before surgery, and 4 weeks after surgery Chocolate Flavor cefadroxil 500 mg oral capsule (10 sources) Cephalosporin Antibacterial Start: 06-23-2024 End: 07-21-2024 take 1 capsule by mouth every twelve hours Cefadroxil 500 mg capsule Discontinued 500 MG PO Q12H 14 7 June 22, 2024 11:00pm July 21, 2024 12:32pm DO NOT RECONCILE UNTIL DOS:07/05/2024 MED TO BED cholecalciferol 0.125 mg oral tablet (19 sources) Vitamin D Start: 08-11-2017 End: 06-21-2024 take 1 tablet by mouth every week Cholecalciferol (Vitamin D3) (Vitamin D3) 5,000 unit Tablet Discontinued 1 TAB PO every week August 11, 2017 12:00am June 21, 2024 7:59am docusate sodium 50 mg / sennosides, nursing home 8.6 mg oral tablet (10 sources) Start: 06-23-2024 End: 08-18-2024 take 2 tablets by mouth once daily Sennosides-Docusate Sodium (Senokot-S) 8.6-50 mg tablet Discontinued 2 TAB PO daily 60 June 22, 2024 11:00pm August 18, 2024 11:10am DO NOT RECONCILE UNTIL DOS:07/05/2024 MED TO BED Food Supplemt, Lactose-Reduced (Boost High Protein) 0.08 gram- 1.1 kcal/mL liquid (12 sources) Start: 05-03-2024 End: 05-14-2024 Food Supplemt, Lactose-Reduced (Boost High Protein) 0.08 gram- 1.1 kcal/mL liquid Discontinued 1 EACH PO Twice daily 4 May 02, 2024 11:00pm May 14, 2024 7:42am Chocolate Flavor Start: 05-03-2024 End: 05-14-2024 Food Supplemt, Lactose-Reduc ed (Boost High Protein) 0.08 gram- 1.1 kcal/mL liquid Discontinued 1 EACH PO Twice daily 4 May 03, 2024 12:00am May 14, 2024 8:42am Chocolate Flavor ondansetron 4 mg oral tablet (10 sources) Serotonin-3 Receptor Antagonist Start: 06-23-2024 End: 07-21-2024 take 1 tablet by mouth every eight hours as needed for nausea Ondansetron Hcl 4 mg tablet Discontinued 4 MG PO Q8H as needed for Nausea June 22, 2024 11:00pm July 21, 2024 12:32pm DO NOT RECONCILE UNTIL DOS:07/05/2024 MED TO BED oxyCODONE hydrochloride 5 mg oral tablet (10 sources) Opioid Agonist Start: 06-23-2024 End: 07-07-2024 take 1 tablet by mouth every four hours as needed for pain Oxycodone 5 mg tablet Discontinued 5 MG PO Q4H as needed for Pain 40 June 23, 2024 July 07, 2024 1:35pm DO NOT RECONCILE UNTIL DOS:07/05/2024 MED TO BED pantoprazole 20 mg delayed release oral tablet (10 sources) Proton Pump Inhibitor Start: 06-23-2024 End: 08-18-2024 take 1 tablet by mouth once daily Pantoprazole (Protonix) 20 mg tablet,delayed release (DR/EC) Discontinued 20 MG PO daily 35 35 June 22, 2024 11:00pm August 18, 2024 11:10am DO NOT RECONCILE UNTIL DOS:07/05/2024 MED TO BED polyethylene glycol 3350 97152 mg powder for oral solution (10 sources) Osmotic Laxative Start: 06-23-2024 End: 08-18-2024 Polyethylene Glycol 3350 (Miralax) 17 gram/dose powder Discontinued 17 GM PO daily 7 7 June 22, 2024 11:00pm August 18, 2024 11:10am 1 packed mixed with 8 ounces of fluid. DO NOT RECONCILE UNTIL DOS:07/05/2024 MED TO BED traMADol hydrochloride 50 mg oral tablet (10 sources) Opioid Agonist Start: 06-23-2024 End: 08-18-2024 take 1 tablet by mouth every six hours as needed for pain Tramadol 50 mg tablet Discontinued 50 MG PO Q6H as needed for Pain 40 7 June 22, 2024 11:00pm August 18, 2024 11:10am DO NOT RECONCILE UNTIL DOS:07/05/2024 MED TO BED Problems Active Problems Problem Classification Problem Date Documented Da te Episodic/Chronic Abdominal pain (8 sources) Pelvic and perineal pain; Translations: [Left lower quadrant pain] Onset: 06-12-2022 Episodic Acute bronchitis (4 sources) Acute bronchitis; Translations: [Acute bronchitis due to other specified organisms] Episodic Administrative/social admission (6 sources) Informing health family day care worker of test result; Translations: [Person consulting for explanation of examination or test findings] Onset: 08-09-2024 Episodic Cardiac dysrhythmias (18 sources) Bradycardia; Translations: [Bradycardia, unspecified] Onset: 07-06-2024 07-07-2024 Episodic Chronic obstructive pulmonary disease and bronchiectasis (4 sources) Bronchitis; Translations: [Bronchitis, not specified as acute or chronic] Episodic Deficiency and other anemia (4 sources) 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 loss; Translations: [Iron deficiency anemia secondary to blood loss (chronic)] Onset: 05-18-2018 Chronic Disorders of lipid metabolism (19 sources) Hyperlipidemia, unspecified; Translations: [Mixed hyperlipidemia] Onset: 04-25-2023 Chronic Glaucoma (13 sources) Open-angle glaucoma of left eye; Translations: [Primary open-angle glaucoma, left eye, mild stage] Onset: 05-05-2024 05-05-2024 Chronic Headache; including migraine (18 sources) Tension-type headache; Translations: [Tension-type headache, unspecified, [...] arthropathy, left hip] Onset: 03-28-2016 Chronic Mycoses (20 sources) Tinea pedis; Translations: [Tinea pedis] 05-14-2024 Episodic Nutritional deficiencies (2 sources) Vitamin D deficiency; Translations: [Vitamin D deficiency, unspecified] 11-29-2024 Chronic Osteoarthritis (20 sources) Osteoarthritis of right hip joint; Translations: [Unilateral primary osteoarthritis, right hip] Onset: 05-25-2019 Chronic Osteoporosis (7 sources) Senile osteoporosis; Translations: [Age-related osteoporosis without current pathological fracture] Chronic Other aftercare (3 sources) Patient encounter status; Translations: [Aftercare following joint replacement surgery] 07-22-2024 Chronic Other aftercare (6 sources) Aftercare following joint replacement surgery; Translations: [Aftercare following joint replacement] Onset: 06-24-2024 07-21-2024 Chronic Other aftercare (4 sources) History and physical examination, follow-up; Translations: [Encounter for follow-up examination after completed treatment for conditions other than malignant neoplasm] Episodic Other aftercare (2 sources) Encounter for follow-up examination after completed treatment for conditions other than malignant neoplasm; Translations: [Encounter for follow-up examination after completed treatment for conditions other than malignant neoplasm] Onset: 08-09-2024 Episodic Other aftercare (2 sources) Post-discharge follow-up; Translations: [Encounter for follow-up examination after completed treatment for conditions other than malignant neoplasm] Onset: 08-09-2024 08-09-2024 Episodic Other and unspecified benign neoplasm (2 sources) Melanocytic nevus of trunk; Translations: [Melanocytic nevi of trunk] 10-14-2024 Episodic Other circulatory disease (4 sources) Elevated blood-pressure reading without diagnosis of hypertension; Translations: [Elevated blood-pressure reading, without diagnosis of hypertension] Episodic Other connective tissue disease (20 sources) History of total hip arthroplasty; Translations: [Presence of right artificial hip joint] Onset: 06-07-2023 06-09-2023 Chronic Other connective tissue disease (13 sources) Presence of left artificial hip joint; Translations: [Hip joint replacement] Onset: 07-06-2024 07-06-2024 Chronic Other connective tissue disease (1 source) History of repair of hip joint; Translations: [Presence of right artificial hip joint] Onset: 06-07-2023 08-04-2023 Chronic Other connective tissue disease (3 sources) Olecranon bursitis; Translations: [Olecranon bursitis, right elbow] Episodic Other connective tissue disease (1 source) Olecranon bursitis, right elbow; Translations: [Olecranon bursitis, right elbow] Episodic Other connective tissue disease (2 sources) Swelling of left lower limb; Translations: [Other specified soft tissue disorders] 07-22-2024 Episodic Other connective tissue disease (2 sources) Other specified soft tissue disorders; Translations: [Swelling of limb] 07-22-2024 Episodic Other ear and sense organ disorders (18 sources) Mixed conductive and sensorineural hearing loss, bilateral; Translations: [Mixed conductive and sensorineural hearing loss, bilateral] Onset: 02-18-2023 02-18-2023 Chronic Other ear and sense organ disorders (2 sources) Unspecified hearing loss, unspecified ear; Translations: [Unspecified hearing loss, unspecified ear] Onset: 08-09-2024 Chronic Other ear and sense organ disorders (2 sources) Hearing loss; Translations: [Unspecified hearing loss, unspecified ear] Onset: 08-09-2024 08-09-2024 Chronic Other ear and sense organ disorders [...] in left ear, initial encounter Episodic Other injuries and conditions due to external causes (2 sources) Abrasion; Translations: [Other injury of unspecified body region, initial encounter] 11-08-2024 Episodic Other nervous system disorders (20 sources) Carpal tunnel syndrome of right wrist; Translations: [Carpal tunnel syndrome, right upper limb] Onset: 08-27-2021 Resolved: 09-13-2024 02-18-2023 Chronic Other nervous system disorders (18 sources) Disorder of right femoral nerve; Translations: [Lesion of femoral nerve, right lower limb] Onset: 02-18-2023 02-18-2023 Chronic Other nervous system disorders (10 sources) Bilateral carpal tunnel syndrome; Translations: [Carpal tunnel syndrome, bilateral upper limbs] Onset: 07-06-2024 07-06-2024 Chronic Other nervous system disorders (2 sources) Carpal tunnel syndrome of left wrist; Translations: [Carpal tunnel syndrome, left upper limb] 11-29-2024 Chronic Other nervous system disorders (20 sources) Skin sensation disturbance; Translations: [Unspecified disturbances [...] metabolic disorders (3 sources) Body mass index (BMI) 19.9 or less, adult; Translations: [Body mass index (BMI) 19 or less, adult] Onset: 08-09-2024 Episodic Other nutritional; endocrine; and metabolic disorders (2 sources) Decreased body mass index; Translations: [Body mass index (BMI) 19.9 or less, adult] Onset: 08-09-2024 08-09-2024 Episodic Other screening for suspected conditions (not mental disorders or infectious disease) (9 sources) Endometrium thickened; Translations: [Abnormal findings on diagnostic imaging of other specified body structures] Chronic Other screening for suspected conditions (not mental disorders or infectious disease) (20 sources) Patient encounter status; Translations: [Encounter for screening for malignant neoplasm of colon] Onset: 07-14-2017 Resolved: 02-13-2021 08-11-2017 Episodic Comment on above: Problem List clean-u p per request of Phys. EHR Cmte Other skin disorders (3 sources) Sebaceous cyst; Translations: [Sebaceous cyst] 12-17-2023 Episodic Other skin disorders (2 sources) Trichilemmal cyst; Translations: [Pilar cyst] 10-14-2024 Episodic Other skin disorders (2 sources) Lentiginosis; Translations: [Other melanin hyperpigmentation] 10-14-2024 Episodic Other skin disorders (2 sources) Seborrheic keratosis; Translations: [Other seborrheic keratosis] 10-14-2024 Episodic Other skin disorders (2 sources) Folliculitis; Translations: [Follicular disorder, unspecified] 10-14-2024 Episodic Otitis media and related conditions (4 [...] [Other specified postprocedural states] Onset: 08-04-2023 Episodic Retinal detachments; defects; vascular occlusion; and retinopathy (13 sources) Exudative age-related macular degeneration; Translations: [Exudative age-related macular degeneration, bilateral, with active choroidal neovascularization] Onset: 05-05-2024 05-05-2024 Chronic Skin and subcutaneous tissue infections (4 sources) Localized infection of skin AND/OR subcutaneous tissue; Translations: [Local infection of the skin and subcutaneous tissue, unspecified] Episodic Spondylosis; intervertebral disc disorders; other back problems (20 sources) Radiculopathy, lumbosacral region; Translations: [Lumbar radiculopathy] Onset: 08-27-2021 02-18-2023 Episodic Syncope (13 sources) Syncope; Translations: [Syncope and collapse] Onset: 07-06-2024 07-07-2024 Episodic Thyroid disorders (20 sources) Autoimmune thyroiditis; Translations: [Autoimmune thyroiditis] Onset: 10-18-2013 Chronic Viral infection (5 sources) Disease caused by 2019-nCoV; Translations: [COVID-19] Past or Other Problems Problem Classification Problem Date Documented Da te Episodic/Chronic Heart valve disorders (20 sources) O/E - cardiac murmur; Translations: [Cardiac murmur, unspecified] Onset: 02-26-2021 02-24-2023 Episodic Immunizations and screening for infectious disease (1 source) Encounter for screening for human papillomavirus (HPV); Translations: [ENC SCREENING HUMAN PAPILLOMAVIRUS] Onset: 09-16-2022 Episodic Malaise and fatigue (19 sources) Weakness; Translations: [Asthenia] Onset: 08-14-2021 02-18-2023 Episodic Melanomas of skin (20 sources) History of malignant melanoma of the skin; Translations: [Personal history of malignant melanoma of skin] Onset: 03-06-2020 02-24-2023 Episodic Open wounds of extremities (4 sources) Open wound of hand except fingers with complication; Translations: [Laceration with foreign body of right hand, initial encounter] Onset: 05-02-2017 Episodic Other and unspecified benign neoplasm (18 sources) Benign neoplasm of skin; Translations: [Other benign neoplasm of skin, unspecified] Onset: 06-28-2015 02-18-2023 Episodic Other ear and sense organ disorders (17 sources) Mixed conductive AND sensorineural hearing loss; Translations: [Mixed conductive and sensorineural hearing loss, unspecified] Onset: 02-24-2023 Resolved: 09-13-2024 02-24-2023 Chronic Other ear and sense organ disorders (18 sources) Tinnitus; Translations: [Tinnitus, unspecified ear] Onset: [...] Onset: 06-19-2022 Episodic Other nervous system disorders (20 sources) Hip pain; Translations: [Other acute postprocedural pain] Onset: 02-18-2023 06-09-2023 Episodic Other non-traumatic joint disorders (17 sources) Arthralgia of the pelvic region and thigh; Translations: [Pain in unspecified hip] Onset: 05-25-2019 02-24-2023 Episodic Other non-traumatic joint disorders (3 sources) Pain in left hip; Translations: [Pain in joint, pelvic region and thigh] Onset: 01-16-2024 01-16-2024 Episodic Other skin disorders (4 sources) Other seborrheic keratosis; Translations: [Seborrheic keratosis] Onset: 04-09-2019 Episodic Other skin disorders (20 sources) Sebaceous cyst of skin; Translations: [Sebaceous cyst] Onset: 05-05-2024 12-17-2023 Episodic Other upper respiratory infections (20 sources) Acute maxillary sinusitis; Translations: [Acute recurrent maxillary sinusitis] Onset: 08-26-2016 Episodic Residual codes; unclassified (4 sources) Family history of breast cancer; Translations: [Family history of malignant neoplasm of breast] Onset: 01-06-2014 Episodic Residual codes; unclassified (18 sources) Insomnia; Translations: [Insomnia, unspecified] Onset: 08-14-2021 02-18-2023 Episodic Residual codes; unclassified (17 sources) History of hernia repair; Translations: [Other specified postprocedural states] Onset: 10-17-2022 05-08-2023 Episodic Residual codes; unclassified (16 sources) History of repair of mitral valve; Translations: [Other specified postprocedural states] Onset: 08-04-2023 08-09-2024 Episodic Unclassified (1 source) Onset: 08-09-2024 08-09-2024 Viral infection (20 sources) Herpesviral vesicular dermatitis; Translations: [Herpesviral vesicular dermatitis] Onset: 03-08-2015 02-18-2023 Episodic Results Test Name Value Interpretation Reference Range Facility Coding Summaryon 10-27-2024 Coding Summary HTMLBase 64 NcebvqazZAu9qAh+PGhlYWQ+PE 1QZWZvN61ooKJjdQ8sA3SUKIrG QscsFNEAMQkNHwMgxbIaAN7xiF NjZXJu IC8+FT6zTCQyAwljuEAhs7M3wT P0O49fom6cTNnmnTN8EAFuGxIj ceblr2rvjZb8FOaoQrwgGpId EODneL85UMW1iU98Td23nFHeoR Fon3eptTz4SaDiOJPuFPG0wUnx EYfvx0PdHAIdC52xrBXfu7E7 MOZumRumzSOtZoYmfVV9gX7gVN hstgavg8eezyxdJrp8pm83yLHi n8R1jGG5C5OdhxF5ZUDppJXb DwbqoDYMlT7obqpsp3bwpfgkPi CtSRQcTHo1UAv7JHZbyFnhNyXd XU66WBH7FVJkpoQaA1NwJHEm yYqwKtQ4v8F3Xd1SR4QXCuoaA4 VNTUFSWTwvdGQ+NX29dh13X1Hm QydeDce2QNYhMDY6kEM3jF3q XOLxRTxrh3U3pPV8M9PahaLztw 7oc2rbPJAjZAovH21dlCTfe9D2 OMIfbQW7DBHxtZhtGfThoV74 Oyc+KFCqlOczn0VeUlhoa1xgo0 khlWs5VzkjQQEhpkFqmHkbGPQ4 g9TeFb2pGNYcmRU4dSQ7yI1m IjJpRkF2LTrmU706YqUcpAXkEl zzS98mL0DgrAJ+HNWuQab2QGNl qNydZJ4oY0MzEXIrhxbyyJXo lMfeZO6kQQUceasmMQJkgU3tUQ PyE5g0HnRmJlT8PKalY8NqPUVj lobvWv32cZ8tAmOqIxY1WBzx M5FxtkS0MUDngGIxKKwzPUW6P2 7sh6V1TPFtQDUdKGV8fYD5lN7g bGlnbjogbGVmdDsgdmVydGlj RDzqDLslR216XRSeaBmnGvSwFP luZyBEYXRlOiAgMDEvMjIvMjAy NTwvdGQ+PYDtYCG3tUyeSCSr pIHaKTofSk6xzUeskAbwIK7oYS PmjwcqFWTnjE5cFYOyiIVsbBot MZ0hPMGjgelsj926GmSeZGO3 PRBldEDzC0NxnI4nPsYeNCElXG SnY7PkpGTwFSdzS470QMttTvM7 NCYqmrTcJ0RrYTPbvWceImH4 v1H9Di7Gc9GhjouzK3FnaZXwSj LbWblaVQw6W5OoAelqcBG+PC90 TYYkLZ58PIx3VJH0vVazMIly ZHYkF0XcgL8jEyFoXMGeIZPrQo c+PHRhYmxlIHdpZHRoPScxMDAl RgTokGvfAE8gEc4dQFJlUTFc fLdqyNKyTqBoj2heVPVrTTnsNA 2wmDikR7CiuOP4EWOtv1e0Hh40 V19vJ3TpvDP+GWEzoJK8eOB2 yB7qInEqLnO5JTijJ520FwGzkW YhSwrve5oto6ymcBu1OwG0ULQs xlSogVahSDF1k6DpGs39H87g IHdpZHRoPSIxNSUiIHZhbGlnbj 9lyN4mKd7+AZOxcRJ1tNN9dU0s OyAlRrL1TWvbU799PxAklUNq Cogvx3oqa9rlxMe5MyKkSALwxe FypOcwFAQ8w0WiKn24Z4DazYqh q6VpKqc8tm01qOXvu9U3wOD8 D1RnXYHrshkmmRZtyLemCQ9sUP DqxmeuTIRmwE2eBEJqF4q7FxOg DiL1HEsoI5IlpjJ3GKXrlJSy AFUyfUJYuG0fgsrio5xmzmpmGe ChFPAnPOu3LFd8SBKuzHhxQgDx ABX6NbR9JCI1mEFvyK5smGnk zhqzgQ1vIes+RRA6bZUtaXZIDZ 1lOjwvdGQ+VYGvFPU8yMqhQCri VOAjiS0cXXLtE4f9CeMxQzS6 VBozR2XcpkE2GZLisTZvNRNczC TAzO2ddwglh8nvxhdkWpUrKBSr KKb1PQh2SGYcnBtlWoHeAGK1 WzA9DGR6hHNdlE9ppJdauotmkH 9wOyc+SiazoNwjAMK7MSi6E6En Miv0AANdeAgoQY3jvDJeTBoz Uf6ueOjsvVjxZJ1rJEGautdbk3 78ZpHpv6teNRUrwUEaKEdxOQG0 I79id1E3LVIoPWNuTHP3sKD9 aT0muBdwbaehuRZtuYpjmqMofJ dxEHyyWHiqZ096ATUrvCasSuJv NJt0A7UkFbf5AOGktQziSG3d aDExUApsLy9ajTtooGpiDI4fUW Nmkksxp152FrSyy4zmFIAmgQNl UCduZUL5G75nz0R7JQJgEXWq RXD8eBB0hQ0niLucsrdxpPFqfA hubtLqdPspPKuzKShaK701YOBr bAtuTbGzxQj4T3YeHsx8CNMe kRtlDW2mhXBbQHznGh6epObozE scZU4rWUHfwgjjg211QyZan8pd AAYoxDTkCDjnKEV2A57ce0V2 TSGqCTQzSDI9kMB8lA4ykXxlmc ogbGVmdDsgdmVydGljYWwtYWxp Q563XTYnlOpwHkRbkHjetkHe NFfpEOo9H2TzKamnoYB+PC90YW AhEM22cHVfhOIyk6exsUx1IsLd XCKfOPC0hHgcJQvkh2JdTMQs O16dfSTmz6I1JGYyvAmkzVClYo BtrTJ5hK5bFIgqoknwb3kmbiky Gdwlk3oicw12zX45K52jNErj XKKcZLCsCUYqGBJwkAthzc3cxA 9wIi8+OWOkrHD2fGZ0iF1tGMRo CzO8STroY575UhLyrVOtKudg b2iie8cjdHu5PfQ8XZLguzRpuG nxIAD6a7QiRj08M58xGSiwPABp XDCnJAKaHUBwkSurhg4wfJ6v Ii8+CUMakQJ9iPU3nF7jBvSgDc R3FNyuR499QyFgzKFcFwrjE56q Y9OvhRM+CXBmHyy0TVKtuPnp WJ7amREzFBdoKb1wXEE2NpLfZy BvLVefX8RyMLRochoyeugauUH5 RSWpRESfyE35Rg0rcXfiUEFq cLARnP6xhjhre5rqfbuwYfTyKY TnJOs7SNs1XPYahKteGyRaVCS9 ZuS1NEK3oRWieW5tvBtqwxgc dT2cF8DhVMAxukrvSj82iX8mPw EyPjI3LDbmXht+WklFQkVSLCBK RUFOIEFOTjwvdGQ+PHRkIHN0 cOsoQUxfNYLucE7gNNPaT2z9Mp NiJgJ3VGdgU7QtMDUkswrvHb66 nH0eAhKwEiT3YXilU4IcijE5 EAFnpLPeXQfwGIP2P58lx6X5MA SxVYQcTHN5eVZ8uY8yhAufrfkc bGVmdDsgdmVydGljYWwtYWxp V013GDAslNlrGwTxTbCcAbA6PH M7F2XlSpz3IQMwqYmtKG0kuRUy PQdoHw2geHhniEhmZK4eCFHw uoowVGHzcC4rUZQukXOvgSwvNT 8jNKQviilus787VrKxQBF0SJFl eRAiO5UveS1zWcWaFFPpCJDn L5ObwDUfKRehS712CEdjOdU3QJ CzsgQuY1BeWPFgfOusRaV7j2G1 Nx51TNEJXWTliepleMK+PHRk BQZ1qIheJJbbYSLjjT4qSEIvA0 n9MuDsScP8QCdlM7QdNMCgftef Wr03rY8cVzKnVpR6WHrgN8Wq yrX1BUCnrTImVSmzNSW7Y02lp3 J2NRNaLAWwNUN6rBB4pT0eeQrb bjogbGVmdDsgdmVydGljYWwt DCqyS709CJWstDmlLcFDYNJGSR wvdGQ+ZMFyMTZ9jDyeFHvoYENv vL7fFOBfL2e3VvUjRuO7FIgv M1LeQDZhkhkqDs30pH7yDkBuGh D8VMqyR9RcukT4IDPkgMSfOOdg PXC9P10qi8A6DZGjRSVaPYD6 wSI0mO3ymKiswzgtrTShcOktgx RfkRxyVYmvHEojU395AQKcoYdo Ak9JOW90ZM30V7RpTwimjBLq bGU+PHRhYmxlIHdpZHRoPScxMD CmPiBmbWcgLW8lJb3mVEVjKXVb mDeafRMcCwCeb2xyUFGdOYol NE5hmYrhF7RzdSA5EQZqr7g7Wx 23I85qQ3LwnYP+BTApuYN1cJN7 yT0dYxHyUuM4WXlxO857CfCz fOAvDdrwy3atn7eknRs8FhQhXF TrkgFxqZygTTA7w5GtDu44U74o IHdpZHRoPSIyMCUiIHZhbGln km2fmS2tDu1+WQGbhNN4hVF4rS 3mMrIvCaF3GLrfZ433CwBskFYg BykhM47wL6QiyLT+PHRyPjx0 NNAcyCigSO2sqKWtZOlqEg4hTC J9JfEvJnUzVUdeL9ZsVBWyqtqh opvfvAI7AHKkMMFjbV18Ja6g nUgjLt6pBDOvHTO1PUIirWNzY7 YnzQ7hQvOuDXDoIXPlU7PdxNQv IUhwV192SYefCnW6QOFanvQr J3WxWHSpkKbpEeO0m1V2Al2JrA dlnQItTF0zOuLwXTb1Q7QjMvz2 UPVfyZsjUD9piXDeRBpzDq6t oPjzgWcjGL7tHTCpaqrxo630Sc Owz6zaNGZzjMHbZDovCST2E48p m4E0UDMzIPIhONS9rOE0fK1w bGlnbjogbGVmdDsgdmVydGljYW hkVZzoE159SBSuhSkkOwQZDuj9 Q7VuFot5OZCjcGlfWO4ilDQt MLfpRw5xdImxeZctMU9rPOPpcn rcb659GdUzr5ntXTWizPPgJFln KUJ6Q20yk8Q0NZCmRXOnGHE5 jKB7cE5qcOkrodnwqLGmiWrtla TamOhjJEhyUAtgA584OGFtsXhw Bw6YZov0W8SbPok9JCWdgMyz LB4xnXYhLDirJm3qxVoymXmaRW 7zEVUhqilbc283NaDyo4zuTIKj fLHjBBvlOGC8G08wc5J0JYQi ZQStTHG8kSR1vP4ucDrlfipcnE TqvMhracYbkShnKPywNAwyW436 IHRvcDsnPlBheWVyOjwvdGQ+ IA90ta45C8WaWyrjVlo7TVJvSD M9rNC7rJ1lDOXpPHilg0V6cIV1 M7HpwxKqqe5bk7vqWPWrOAxm Y29 (more content not included)... [facility] Provider Orderson 10-19-2024 Provider Orders [id number] [facility] XR Spine Scoliosis Study Sta nding[place] 10-19-2024 XR Spine Scoliosis Study Standing EXAMINATION: XR Spine Scoliosis Study Standing HISTORY: SCOLIOSIS, UNSPECIFIED COMPARISON: No relevant comparison available. FINDINGS: VERTEBRA: No acute fracture or spondylolisthesis. Mild to moderate diffuse degenerative spondylosis and facet osteoarthropathy DISK SPACES: Mild multilevel disc space narrowing CURVATURE: 9 degrees of levocurvature MEASURED FROM: L2-L5 OTHER: Hyperinflation lungs. Cardiomegaly with valve replacement. Aorta atherosclerosis. Bilateral hip osteoarthropathy. Large amount of stool in the colon IMPRESSION: Lumbar levocurvature Large amount of stool throughout the colon Final Dictated by: Brodie Epps MD Dictated DT/TM: 10/20/24 7:23 Signed (Electronic Signature): Brodie Epps MD 10/20/24 7:26 am Technologist: HC,AG [facility] XR hip LT min 2V(w/wo pelvis )*on 10-01-2024 XR hip LT min 2V(w/wo pelvis)* [facility] [address] [place] [address] XRay Report Signed Patient: Thiago Sabillon MR#: [id number] 5 : 1950 Acct:[id number] Age/Sex: 73 / F ADM Date: 10/01/24 Loc: [facility] Room: Type: REG CLI Attending Dr: Vernell Alvarez II, MD Copies to: Vernell Alvarez MD Ordering Provider: Vernell Alvarez MD Date of Service: 10/01/24 XR/XR hip LT min 2V(w/wo pelvis)*: Z47.1 - Aftercare following joint replacement surgery AP PELVIS AND LEFT HIP - 2 views: CLINICAL HISTORY: Follow-up left hip replacement COMPARISON: 08/18/2024 Weightbearing AP view the pelvis and crosstable lateral view of the left hip were obtained. Patient has bilateral hip prostheses. The hardware appears intact and unchanged from the prior. There is no developing fracture or dislocation. There are no significant soft tissue abnormalities. There is atherosclerotic disease. XR/XR hip LT min 2V(w/wo pelvis)* IMPRESSION: STABLE HIP REPLACEMENTS. Impression dictated by: Dasia Cervantes M.D.10/01/2024 2:27 PM Dictation Location: [place] [address] Transcribed By: [facility] 10/01/24 1427 Dictated By: Dasia Cervantes MD 10/01/24 142 Signed By: 10/01/24 1427 Normal [facility] X-ray reportOrdered By: Nolberto Avilez on 08-18-2024 Study report [facility] [address] [place] [address] XRay Report Signed Patient: Thiago Sabillon MR#: [id number] : 1950 Acct:[id number] Age/Sex: 73 / F ADM Date: 4 Loc: [facility] Room: Type: REG CLI Attending Dr: Vernell Alvarez II, MD Copies to: Vernell Alvarez MD~ Ordering Provider: Vernell Alvarez MD Date of Service: 08/18/24 XR/XR hip LT min 2V(w/wo pelvis)*: M16.12 - Unilateral primary osteoarthritis, left hip 2 views LEFT hip with single view pelvis plain film COMPARISON: 07/05/24 HISTORY: Status post LEFT total hip arthroplasty ACUTE FINDINGS: None DEGENERATIVE CHANGE: Unremarkable SOFT TISSUE FINDINGS: Atherosclerosis JOINT EFFUSION: None POSTOP CHANGES: Adequate hardware. No complication. Unremarkable RIGHT hip arthroplasty BONY MINERALIZATION: Adequate XR/XR hip LT min 2V(w/wo pelvis)* IMPRESSION: Stable uncomplicated LEFT hip arthroplasty Impression dictated by: Aden Avilez M.D.08/18/2024 4:53 PM Dictation Location: [place] [address] Transcribed By: [facility] 08/18/241652 Dictated By: Aden Avilez DO 08/18/241650 Signed By: 08/18/241652 [facility] XR hip LT min 2V(w/wo pelvis )*on 08-18-2024 XR hip LT min 2V(w/wo pelvis)* [facility] [address] [place] [address] XRay Report Signed Patient: Thiago Sabillon MR#: [id number] 5 : 1950 Acct:[id number] Age/Sex: 73 / F ADM Date: 08/18/24 Loc: [facility] [place] Room: Type: [facility] Attending Dr: Vernell Alvarez II, MD Copies to: Vernell Alvarez MD Ordering Provider: Vernell Alvarez MD Date of Service: 08/18/24 XR/XR hip LT min 2V(w/wo pelvis)*: M16.12 - Unilateral primary osteoarthritis, left hip 2 views LEFT hip with single view pelvis plain film COMPARISON: 07/05/24 HISTORY: Status post LEFT total hip arthroplasty ACUTE FINDINGS: None DEGENERATIVE CHANGE: Unremarkable SOFT TISSUE FINDINGS: Atherosclerosis JOINT EFFUSION: None POSTOP CHANGES: Adequate hardware. No complication. Unremarkable RIGHT hip arthroplasty BONY MINERALIZATION: Adequate XR/XR hip LT min 2V(w/wo pelvis)* IMPRESSION: Stable uncomplicated LEFT hip arthroplasty Impression dictated by: Aden Avilez M.D.08/18/2024 4:53 PM Dictation Location: [facility]01 Transcribed By: [facility] 08/18/24 1653 Dictated By: Aden Avilez DO 08/18/24 165 Signed By: 08/18/24 165 Normal [facility] XR low pelvis w/LT x-table h ipon 07-16-2024 XR low pelvis w/LT x-table hip [facility] [address] [place] [id number] XRay Report Signed Patient: Thiago Sabillon MR#: [id number] 5 : 1950 Acct:[id number] Age/Sex: 73 / F ADM Date: 07/05/24 Loc: [place] Room: Type: [facility] Attending Dr: Vernell Alvarez II, MD Copies to: Vernell Alvarez MD Ordering Provider: Vernell Alvarez MD Date of Service: 07/05/24 XR/XR low pelvis w/LT x-table hip: Total Hip, due in PACU Left hip 2 views. Reason for exam: Postop left RACHEL. COMPARISON: Hip series 01/08/2023. FINDINGS: Soft tissues demonstrate postoperative changes. Bilateral THAs without radiographic complication. XR/XR low pelvis w/LT x-table hip IMPRESSION: No hardware complication. Impression dictated by: Daniel Rudolph Jr., D.OAntonio07/16/2024 10:21 AM Dictation Location: [facility]12 Transcribed By: [facility] 07/16/24 1021 Dictated By: Daniel Rudolph Jr DO 07/16/24 1020 Signed By: 07/16/24 1021 Normal [facility] US carotid doppler BIon 10-0 US carotid doppler BI [facility] [address] [place] [id number] Ultrasound Report Signed Patient: Thiago Sabillon MR#: [id number] 5 : 1950 Acct:[id number] Age/Sex: 73 / F ADM Date: 07/06/24 Loc: Room: 5Z7503-7 Type: DIS IN Attending Dr: Shaun Yang [...] Aden Martínez M.D.07/08/2024 12:45 PM Dictation Location: [facility] Tech: Jaylyn Arriaza Transcribed By: AMANDA 07/08/24 1245 Dictated By: Aden Martínez MD 07/08/24 1244 Signed By: 07/08/24 1245 Normal [facility] Appearance of UrineOrdered B y: Jose Guthrie on 07-07-2024 Appearance (U) Urine appearance Clear [facility] Automated basophil %Ordered By: Savannah Wen on 07-07-2024 Basophils/100 WBC (Bld) 0.4 % Normal . [facility] Comment on above: Order Comment: REDRA W Performed By: #### C K, PTT, CBC, PT, MG, CMP, HS TROP, BNP #### [facility] [address] [place] [address] Automated basophil countOrde red By: Savannah Wen on 07-07-2024 Basophils (Bld) [#/Vol] 0.0 10*3/uL Normal 0.0-0.2 [facility] Comment on above: Order Comment: REDRA W Result Comment: PERF ORMED BY: [place] [address] PATHOLOGIST WEIGHING STATION OPERATOR KRISTINA ENNIS M.D. Performed By: #### C K, PTT, CBC, PT, MG, CMP, HS TROP, BNP #### [facility] [address] [place] [address] Automated blood monocyte cou ntOrdered By: Savannah Wen on 07-07-2024 Monocytes (Bld) [#/Vol] 0.8 10*3/uL Normal 0.0-0.8 [facility] Comment on above: Order Comment: REDRA W Performed By: #### C K, PTT, CBC, PT, MG, CMP, HS TROP, BNP #### [facility] [address] [place] [address] Automated eosinophil %Ordere d By: Savannah Wen on 07-07-2024 Eosinophils/100 WBC (Bld) 0.7 % Normal . [facility] Comment on above: Order Comment: REDRA W Performed By: #### C K, PTT, CBC, PT, MG, CMP, HS TROP, BNP #### [address] Automated eosinophil countOr dered By: Savannah Wen on 07-07-2024 Eosinophils (Bld) [#/Vol] 0.0 10*3/uL Normal 0.0-0.45 [facility] Comment on above: Order Comment: REDRA W Performed By: #### C K, PTT, CBC, PT, MG, CMP, HS TROP, BNP #### [address] Automated monocyte %Ordered By: Savannah Wen on 07-07-2024 Monocytes/100 WBC (Bld) 11.5 % Normal . [facility] Comment on above: Order Comment: REDRA W Performed By: #### C K, PTT, CBC, PT, MG, CMP, HS TROP, BNP #### [address] Automated neutrophil %Ordere d By: Savannah Wen on 07-07-2024 Neutrophils/100 WBC (Bld) 69.5 % Normal . [facility] Comment on above: Order Comment: REDRA W Performed By: #### C K, PTT, CBC, PT, MG, CMP, HS TROP, BNP #### [address] Basic Metabolic Panelon 10-0 Anion gap [Moles/Vol] Not performed Normal 6.0-15.0 [facility] Comment on above: Order Comment: pt wood ving ultrasound Performed By: #### B MP #### [address] Creatinine Clr Calc Pharmacy 54.08 Normal [facility] Comment on above: Order Comment: pt wood ving ultrasound Result Comment: PERF ORMED BY: [place] [address] PATHOLOGIST WEIGHING STATION OPERATOR KRISTINA ENNIS M.D. Performed By: #### B MP #### [facility] [address] GFR/1.73 sq M.predicted MDRD (S/P/Bld) [Vol rate/Area] mL/min/{1.73_m2} Normal [facility] Comment on above: Order Comment: pt wood ving ultrasound Performed By: #### B MP #### [facility] [address] Potassium Normal 3.5-5.1 [facility] Comment on above: Order Comment: pt wood ving ultrasound Result Comment: Spec imen hemolyzed, redraw requested Performed By: #### B MP #### [address] Basophils Auto (Bld) [#/Vol] Ordered By: Savannah Wen on 07-07-2024 Basophils (Bld) [#/Vol] Automated basophil count 0.0-0.2 [facility] Basophils/100 WBC Auto (Bld) Ordered By: Savannah Wen on 07-07-2024 Basophils/100 WBC (Bld) Automated basophil % . [facility] Bilirubin Test strip Ql (U)O rdered By: Jose Guthrie on 07-07-2024 Bilirubin Ql (U) Negative Negative [facility] Bilirubin Ql (U) Bilirubin.total [Pre sence] in Urine by Test strip Negative [facility] Calcium [Mass/volume] in Ser um or PlasmaOrdered By: Savannah Wen on 07-07-2024 Calcium [Mass/Vol] 7.6 mg/dL Low 8.6-10.3 [facility] Comment on above: Order Comment: pt wood ving ultrasound Performed By: #### B MP #### [address] Calcium [Mass/Vol] Calcium [Mass/volume ] in Serum or Plasma Low 8.6-10.3 [facility] Carbon dioxide, total [Moles /volume] in Serum or PlasmaOrdered By: Savannah Wen on 07-07-2024 CO2 [Moles/Vol] 23.5 mmol/L Normal 21.0-31.0 [facility] Comment on above: Order Comment: pt wood meena ultrasound Performed By: #### B MP #### [address] CO2 [Moles/Vol] Carbon dioxide, tota l [Moles/volume] in Serum or Plasma 21.0-31.0 [facility] Chloride [Moles/volume] in S moe or PlasmaOrdered By: Savannah Wen on 07-07-2024 Chloride [Moles/Vol] 105 mmol/L Normal 98-107 [facility] Comment on above: Order Comment: pt israel robledo ultrasound Performed By: #### B MP #### [address] Chloride [Moles/Vol] Chloride [Moles/vol ume] in Serum or Plasma 98-107 [facility] Color Auto (U)Ordered By: Jay Guthrie on 07-07-2024 Color (U) Color of Urine by Auto Yellow [facility] Color of Urine by AutoOrdere d By: Jose Guthrie on 07-07-2024 Color (U) Light-yellow Normal Yellow [facility] Comment on above: Order Comment: Name Collection Type:: Voided Performed By: #### U A #### [address] Complete Blood Count Auto Di ffon 07-07-2024 Mean Corpuscular HGB Conc 33.9 g/dL Normal 32.0-35.0 [facility] Comment on above: Order Comment: REDRA W Performed By: #### C K, PTT, CBC, PT, MG, CMP, HS TROP, BNP #### [address] NRBC% 0.0 /100{WBC} Normal 0-0.5 [facility] Comment on above: Order Comment: REDRA W Performed By: #### C K, PTT, CBC, PT, MG, CMP, HS TROP, BNP #### [address] [place] [address] [place] Creatinine [Mass/volume] in Serum or PlasmaOrdered By: Savannah Wen on 07-07-2024 Creatinine [Mass/Vol] 0.45 mg/dL Low 0.60-1.20 [facility] Comment on above: Order Comment: pt israel garciag ultrasound Performed By: #### B MP #### [facility] [address] [place] [id number] [facility] Creatinine [Mass/Vol] Creatinine [Mass/v olume] in Serum or Plasma Low 0.60-1.20 [facility] ECH echo transthoracicon [facility] echo transthoracic [facility] Main [place] [address] [place], [place] [id number] Echocardiogram Signed Patient: Thiago Sabillon MR#: [id number] 5 : 1950 Acct:[id number] Age/Sex: 73 / F ADM Date: 07/06/24 Loc: Room: [address] [place] [address] Type: ADM IN Attending Dr: Shaun Yang MD Ordering Provider: TORI Merritt Date of Service: 07/06/2410/29/2336 [facility] transthoracic: Syncope Copies to: TORI Merritt [...] systole: 3.0 mmHg Measurements from QLAB CI (): ED Mass (HM): LAEF (HM): 34.0 % BSA (HM): 1.6 m2 142.0 grams 3.2 l/min/m2 __ DINESH (HM): LAVmax (HM): LAVmin (HM): 32.0 mlPat Height (HM): 31.0 ml/m2 49.0 ml 162.0 cm __ Pat Weight (HM): 54.9 kg QLAB Heart Model (more content not included)... Normal [facility] Eosinophils Auto (Bld) [#/Vo l]Ordered By: Savannah Wen on 07-07-2024 Eosinophils (Bld) [#/Vol] Automated eosinophil count 0.0-0.45 [facility] Eosinophils/100 WBC Auto (Bl d)Ordered By: Savannah Wen on 07-07-2024 Eosinophils/100 WBC (Bld) Automated eosinophil % . [facility] Erythrocyte distribution wid th Auto (RBC) [Ratio]Ordered By: Savannah Wen on 07-07-2024 Erythrocyte distribution width (RBC) [Ratio] Erythrocyte distribution width [Ratio] by Automated count 11.9-15.3 [facility] Erythrocyte distribution wid th [Ratio] by Automated countOrdered By: Savannah Wen on 07-07-2024 Erythrocyte distribution width (RBC) [Ratio] 14.5 % Normal 11.9-15.3 [facility] Comment on above: Order Comment: REDRA W Performed By: #### C K, PTT, CBC, PT, MG, CMP, HS TROP, BNP #### [facility] [address] [place] [address] [place] Erythrocytes [#/volume] in B lood by Automated countOrdered By: Savannah Wen on 07-07-2024 RBC (Bld) [#/Vol] 3.84 10*6/uL Normal 3.60-5.00 [facility] Comment on above: Order Comment: REDRA W Performed By: #### C K, PTT, CBC, PT, MG, CMP, HS TROP, BNP #### [facility] [address] [place] [id number] [place] Glucose [Mass/volume] in Ser um or PlasmaOrdered By: Savannah Wen on 07-07-2024 Glucose [Mass/Vol] 90 mg/dL Normal 70-100 [facility] Comment on above: ADA recommended refe rence rangeRandom Glucose Reference Range is dependent on time and content of last meal. Glucose of more than 200 mg/dL in a nonstressed, ambulatory subject supports the diagnosis of Diabetes Mellitus. Order Comment: pt wood ving ultrasound Result Comment: Brohman om Glucose Reference Range is dependent on time and content of last meal. Glucose of more than 200 mg/dL in a nonstressed, ambulatory subject supports the diagnosis of Diabetes Mellitus. ADA recommended reference range Performed By: #### B MP #### [facility] [address] Glucose [Mass/Vol] Glucose [Mass/volume ] in Serum or Plasma 70-100 [facility] Comment on above: ADA recommended refe rence rangeRandom Glucose Reference Range is dependent on time and content of last meal. Glucose of more than 200 mg/dL in a nonstressed, ambulatory subject supports the diagnosis of Diabetes Mellitus. Glucose [Mass/volume] in Uri ne by Test stripOrdered By: Jose Guthrie on 07-07-2024 Glucose Test strip (U) [Mass/Vol] Normal mg/dL Normal [facility] Glucose Test strip (U) [Mass/Vol] Glucose [Mass/volume] in Urine by Test strip Normal [facility] Hematocrit Auto (Bld) [Volum e fraction]Ordered By: Savannah Wen on 07-07-2024 Hematocrit (Bld) [Volume fraction] Hematocrit [Volume Fraction] of Blood by Automated count 34.0-46.4 [facility] Hematocrit [Volume Fraction] of Blood by Automated countOrdered By: Savannah Wen on 07-07-2024 Hematocrit (Bld) [Volume fraction] 36.2 % Normal 34.0-46.4 [facility] Comment on above: Order Comment: REDRA W Performed By: #### C K, PTT, CBC, PT, MG, CMP, HS TROP, BNP #### [facility] [address] [place] [address] [place] Hemoglobin Test strip Ql (U) Ordered By: Jose Guthrie on 07-07-2024 Hemoglobin Ql (U) Negative Negative [facility] Hemoglobin Ql (U) Hemoglobin [Presence ] in Urine by Test strip Negative [facility] Hemoglobin [Mass/volume] in BloodOrdered By: Savannah Wen on 07-07-2024 Hemoglobin (Bld) [Mass/Vol] 12.3 g/dL Normal 11.8-15.4 [facility] Comment on above: Order Comment: REDRA W Performed By: #### C K, PTT, CBC, PT, MG, CMP, HS TROP, BNP #### [facility] [address] [place] [address] Hemoglobin (Bld) [Mass/Vol] Hemoglobin [Mass/volume] in Blood 11.8-15.4 [facility] Ketones Test strip Ql (U)Ord ered By: Jose Guthrie on 07-07-2024 Ketones Ql (U) Ketones [Presence] i n Urine by Test strip Negative [facility] Ketones [Presence] in Urine by Test stripOrdered By: Jose Guthrie on 07-07-2024 Ketones Ql (U) Negative Normal Negative [facility] Comment on above: Order Comment: Name Collection Type:: Voided Performed By: #### U A #### [facility] [address] [place] [address] Leukocyte esterase [Presence ] in Urine by Test stripOrdered By: Jose Guthrie on 07-07-2024 Leukocyte esterase Test strip Ql (U) Negative Normal Negative [facility] Comment on above: Order Comment: Name Collection Type:: Voided Performed By: #### U A #### [facility] [address] [place] [address] Leukocyte esterase Test strip Ql (U) Leukocyte esterase [Presence] in Urine by Test strip Negative [facility] Leukocytes [#/volume] correc maryjane for nucleated erythrocytes in Blood by Automated counOrdered By: Savannah Wen on 07-07-2024 WBC corrected for nucl RBC Auto (Bld) [#/Vol] 7.1 10*3/uL 3.8-11.6 [facility] WBC corrected for nucl RBC Auto (Bld) [#/Vol] Leukocytes [#/volume] corrected for nucleated erythrocytes in Blood by Automated coun 3.8-11.6 [facility] Leukocytes [#/volume] in Blo od by Automated countOrdered By: Savannah Wen on 07-07-2024 WBC (Bld) [#/Vol] 7.1 10*3/uL Normal 3.8-11.6 [facility] Comment on above: Order Comment: REDRA W Performed By: #### C K, PTT, CBC, PT, MG, CMP, HS TROP, BNP #### [facility] [address] Lymphocytes Auto (Bld) [#/Vo l]Ordered By: Savannah Wen on 07-07-2024 Lymphocytes (Bld) [#/Vol] Lymphocytes [#/volume] in Blood by Automated count 1.00-4.8 [facility] Lymphocytes [#/volume] in Bl ood by Automated countOrdered By: Savannah Wen on 07-07-2024 Lymphocytes (Bld) [#/Vol] 1.3 10*3/uL Normal 1.00-4.8 [facility] Comment on above: Order Comment: REDRA W Performed By: #### C K, PTT, CBC, PT, MG, CMP, HS TROP, BNP #### [facility] [address] [place] [address] Lymphocytes/100 WBC Auto (Bl d)Ordered By: Savannah Wen on 07-07-2024 Lymphocytes/100 WBC (Bld) Lymphocytes/100 leukocytes in Blood by Automated count . [facility] Lymphocytes/100 leukocytes i n Blood by Automated countOrdered By: Savannah Wen on 07-07-2024 Lymphocytes/100 WBC (Bld) 17.9 % Normal . [facility] Comment on above: Order Comment: REDRA W Performed By: #### C K, PTT, CBC, PT, MG, CMP, HS TROP, BNP #### [facility] [address] [place] [address] MCH Auto (RBC) [Entitic mass ]Ordered By: Savannah Wen on 07-07-2024 MCH (RBC) [Entitic mass] MCH [Entitic mass] by Automated count 24.7-34.3 [facility] MCH [Entitic mass] by Automa maryjane countOrdered By: Savannah Wen on 07-07-2024 MCH (RBC) [Entitic mass] 32.0 pg Normal 24.7-34.3 [facility] Comment on above: Order Comment: REDRA W Performed By: #### C K, PTT, CBC, PT, MG, CMP, HS TROP, BNP #### [facility] [address] MCHC Auto (RBC) [Mass/Vol]Or dered By: Savannah Wen on 07-07-2024 MCHC (RBC) [Mass/Vol] 33.9 g/dL 32.0-35.0 [facility] MCHC (RBC) [Mass/Vol] MCHC [Mass/volume] by Automated count 32.0-35.0 [facility] MCV Auto (RBC) [Entitic vol] Ordered By: Savannah Wen on 07-07-2024 MCV (RBC) [Entitic vol] MCV [Entitic volume] by Automated count 80-100 [facility] MCV [Entitic volume] by Auto mated countOrdered By: Savannah Wen on 07-07-2024 MCV (RBC) [Entitic vol] 94.3 fL Normal 80-100 [facility] Comment on above: Order Comment: REDRA W Performed By: #### C K, PTT, CBC, PT, MG, CMP, HS TROP, BNP #### [facility] [address] Monocytes Auto (Bld) [#/Vol] Ordered By: Savannah Wen on 07-07-2024 Monocytes (Bld) [#/Vol] Automated blood monocyte count 0.0-0.8 [facility] Monocytes/100 WBC Auto (Bld) Ordered By: Savannah Wen on 07-07-2024 Monocytes/100 WBC (Bld) Automated monocyte % . [facility] Neutrophils Auto (Bld) [#/Vo l]Ordered By: Savannah Wen on 07-07-2024 Neutrophils (Bld) [#/Vol] Neutrophils [#/volume] in Blood by Automated count 1.8-7.7 [facility] Neutrophils [#/volume] in Bl ood by Automated countOrdered By: Savannah Wen on 07-07-2024 Neutrophils (Bld) [#/Vol] 4.9 10*3/uL Normal 1.8-7.7 [facility] Comment on above: Order Comment: REDRA W Performed By: #### C K, PTT, CBC, PT, MG, CMP, HS TROP, BNP #### [facility] [address] Neutrophils/100 WBC Auto (Bl d)Ordered By: Savannah Wen on 07-07-2024 Neutrophils/100 WBC (Bld) Automated neutrophil % . [facility] Nitrite Test strip Ql (U)Ord ered By: Jose Guthrie on 07-07-2024 Nitrite Ql (U) Negative Negative [facility] Nitrite Ql (U) Nitrite [Presence] i n Urine by Test strip Negative [facility] No Panel InformationOrdered By: Savannah Wen on 07-07-2024 Estimated GFR (CKD-EPI) > 60.0 mL/Min [facility] Creatinine Clearance (Chem 54.08 [facility] Nucleated erythrocytes [Pres ence] in Blood by Automated countOrdered By: Savannah Wen on 07-07-2024 Nucleated RBC Auto Ql (Bld) 0.0 /100{WBC} 0-0.5 [facility] Nucleated RBC Auto Ql (Bld) Nucleated erythrocytes [Presence] in Blood by Automated count 0-0.5 [facility] Platelet mean volume Auto (B ld) [Entitic vol]Ordered By: Savannah Wen on 07-07-2024 Platelet mean volume (Bld) [Entitic vol] Platelet mean volume [Entitic volume] in Blood by Automated count 6.3-10.7 [facility] Platelet mean volume [Entiti c volume] in Blood by Automated countOrdered By: Savannah Wen on 07-07-2024 Platelet mean volume (Bld) [Entitic vol] 7.5 fL Normal 6.3-10.7 [facility] Comment on above: Order Comment: REDRA W Performed By: #### C K, PTT, CBC, PT, MG, CMP, HS TROP, BNP #### [facility] [address] Platelets Auto (Bld) [#/Vol] Ordered By: Savannah Wen on 07-07-2024 Platelets (Bld) [#/Vol] Platelets [#/volume] in Blood by Automated count 150-450 [facility] Platelets [#/volume] in Bloo d by Automated countOrdered By: Savannah Wen on 07-07-2024 Platelets (Bld) [#/Vol] 198 10*3/uL Normal 150-450 [facility] Comment on above: Order Comment: REDRA W Performed By: #### C K, PTT, CBC, PT, MG, CMP, HS TROP, BNP #### [facility] [address] [place] [id number] [place] Potassium [Moles/volume] in Serum or PlasmaOrdered By: Pedro Quintero on 07-07-2024 Potassium [Moles/Vol] 3.9 mmol/L Normal 3.5-5.1 [facility] Comment on above: Order Comment: SPECI MEN HEMOLYZED. NOTIFIED EVELIN Result Comment: PERF ORMED BY: [place] [address] PATHOLOGIST WEIGHING STATION OPERATOR KRISTINA ENNIS M.D. Performed By: #### C K, PTT, CBC, PT, MG, CMP, HS TROP, BNP #### [facility] [address] [place], [place] [id number] [facility] Potassium [Moles/Vol] Potassium [Moles/v olume] in Serum or Plasma 3.5-5.1 [facility] Protein Test strip (U) [Mass /Vol]Ordered By: Jose Guthrie on 07-07-2024 Protein (U) [Mass/Vol] Negative Negative [facility] Protein (U) [Mass/Vol] Protein [Mass/volume] in Urine by Test strip Negative [facility] RBC Auto (Bld) [#/Vol]Ordere d By: Savannah Wen on 07-07-2024 RBC (Bld) [#/Vol] Erythrocytes [#/volu me] in Blood by Automated count 3.60-5.00 [facility] Serum or plasma anion gap de terminationOrdered By: Savannah Wen on 07-07-2024 Anion gap [Moles/Vol] TNP [facility] Comment on above: Test not performed Anion gap [Moles/Vol] Serum or plasma an ion gap determination [facility] Comment on above: Test not performed Sodium [Moles/volume] in Ser um or PlasmaOrdered By: Savannah Wen on 07-07-2024 Sodium [Moles/Vol] 137 mmol/L Normal 136-145 [facility] Comment on above: Order Comment: pt wood ving ultrasound Performed By: #### B MP #### [address] Sodium [Moles/Vol] Sodium [Moles/volume ] in Serum or Plasma 136-145 [facility] Specific gravity Test strip (U) [Rel density]Ordered By: Jose Guthrie on 07-07-2024 Specific gravity (U) [Rel density] 1.020 1.001-1.03 0 [facility] Specific gravity (U) [Rel density] Specific gravity of Urine by Test strip 1.001-1.03 0 [facility] Urea nitrogen [Mass/volume] in Serum or PlasmaOrdered By: Savannah Wen on 07-07-2024 Urea nitrogen [Mass/Vol] 15 mg/dL Normal 04-29 [facility] Comment on above: Order Comment: pt wood ving ultrasound Performed By: #### B MP #### [place] [address] [place] Urea nitrogen [Mass/Vol] Urea nitrogen [Mass/volume] in Serum or Plasma 04-29 [facility] Urinalysison 07-07-2024 Bilirubin,Urine Negative Normal Negative [facility] Comment on above: Order Comment: Name Collection Type:: Voided Performed By: #### U A #### [place] [address] [place] Glucose Ql (U) Normal Normal Normal [facility] Comment on above: Order Comment: Name Collection Type:: Voided Performed By: #### U A #### [address] Nitrite,Urine Negative Normal Negative [facility] Comment on above: Order Comment: Name Collection Type:: Voided Performed By: #### U A #### [address] Occult Blood,Urine Negative Normal Negative [facility] Comment on above: Order Comment: Name Collection Type:: Voided Result Comment: PERF ORMED BY: [place] [address] PATHOLOGIST WE[employer] OPERATOR KRISTINA ENNIS M.D. Performed By: #### U A #### [address] Protein,Urine Negative Normal Negative [facility] Comment on above: Order Comment: Name Collection Type:: Voided Performed By: #### U A #### [address] Specificy Burton,Urine 1.020 Normal 1.001-1.03 0 [facility] Comment on above: Order Comment: Name Collection Type:: Voided Performed By: #### U A #### [address] Urobilinogen,Urine Normal Normal Normal [facility] Comment on above: Order Comment: Name Collection Type:: Voided Performed By: #### U A #### [address] Urine appearanceOrdered By: Jose Guthrie on 07-07-2024 Appearance (U) Clear Normal Clear [facility] Comment on above: Order Comment: Name Collection Type:: Voided Performed By: #### U A #### [address] Urobilinogen Test strip (U) [Mass/Vol]Ordered By: Jose Guthrie on 07-07-2024 Urobilinogen (U) [Mass/Vol] Normal mg/dL Normal [facility] Urobilinogen (U) [Mass/Vol] Urobilinogen [Mass/volume] in Urine by Test strip Normal [facility] WBC Auto (Bld) [#/Vol]Ordere d By: Savannah Wen on 07-07-2024 WBC (Bld) [#/Vol] Leukocytes [#/volume ] in Blood by Automated count 3.8-11.6 [facility] pH Test strip (U)Ordered By: Jose Guthrie on 07-07-2024 pH (U) pH of Urine by Test strip 5.0-9.0 [facility] pH of Urine by Test stripOrd ered By: Jose Guthrie on 07-07-2024 pH (U) 6.5 [pH] Normal 5.0-9.0 [facility] Comment on above: Order Comment: Name Collection Type:: Voided Performed By: #### U A #### [facility] [address] Activated partial thrombopla stin time (aPTT) in platelet poor plasma by coagulation aOrdered By: Jose Guthrie on 07-06-2024 aPTT Coag (PPP) [Time] 24.6 s Low 25.1-36.5 [facility] Comment on above: A hematocrit value g reater than 55% may lead to inaccurate results in coagulation testing. Patients having hematocrit values >55% require a special collection tube for coagulation studies. Please contact the laboratory at [phone] for redraw instructions. Alanine aminotransferase [En zymatic activity/volume] in Serum or PlasmaOrdered By: Jose Guthrie on 07-06-2024 ALT [Catalytic activity/Vol] 32 U/L Normal [facility] Comment on above: Performed By: #### C K, PTT, CBC, PT, MG, CMP, HS TROP, BNP #### [facility] [address] [place] [id number] [place] ALT [Catalytic activity/Vol] Alanine aminotransferase [Enzymatic activity/volume] in Serum or Plasma [facility] [place] Albumin [Mass/volume] in Ser um or Plasma by Bromocresol green (BCG) dye binding methoOrdered By: Jose Guthrie on 07-06-2024 Albumin BCG dye [Mass/Vol] 4.3 g/dL 3.5-5.7 [facility] Albumin BCG dye [Mass/Vol] Albumin [Mass/volume] in Serum or Plasma by Bromocresol green (BCG) dye binding metho 3.5-5.7 [facility] Alkaline phosphatase [Enzyma tic activity/volume] in Serum or PlasmaOrdered By: Jose Guthrie on 07-06-2024 ALP [Catalytic activity/Vol] 58 U/L Normal 34 [facility] Comment on above: Performed By: #### C K, PTT, CBC, PT, MG, CMP, HS TROP, BNP #### [facility] [address] ALP [Catalytic activity/Vol] Alkaline phosphatase [Enzymatic activity/volume] in Serum or Plasma [facility] Aspartate aminotransferase [ Enzymatic activity/volume] in Serum or PlasmaOrdered By: Jose Guthrie on 07-06-2024 AST [Catalytic activity/Vol] 32 U/L Normal [facility] Comment on above: Performed By: #### C K, PTT, CBC, PT, MG, CMP, HS TROP, BNP #### [facility] [address] [place] [address] AST [Catalytic activity/Vol] Aspartate aminotransferase [Enzymatic activity/volume] in Serum or Plasma [facility] Automated basophil %Ordered By: Jose Guthrie on 07-06-2024 Basophils/100 WBC (Bld) 0.3 % Normal . [facility] Comment on above: Performed By: #### C K, PTT, CBC, PT, MG, CMP, HS TROP, BNP #### [facility] [address] Automated basophil countOrde red By: Jose Guthrie on 07-06-2024 Basophils (Bld) [#/Vol] 0.0 10*3/uL Normal 0.0-0.2 [facility] Comment on above: Result Comment: PERF ORMED BY: [place] [address] PATHOLOGIST [employer]ING [employer] OPERATOR KRISTINA ENNIS M.D. Performed By: #### C K, PTT, CBC, PT, MG, CMP, HS TROP, BNP #### [address] Automated blood monocyte cou ntOrdered By: Jose Guthrie on 07-06-2024 Monocytes (Bld) [#/Vol] 1.3 10*3/uL High 0.0-0.8 [facility] Comment on above: Performed By: #### C K, PTT, CBC, PT, MG, CMP, HS TROP, BNP #### [address] Automated eosinophil %Ordere d By: Jose Guthrie on 07-06-2024 Eosinophils/100 WBC (Bld) 0.4 % Normal . [facility] Comment on above: Performed By: #### C K, PTT, CBC, PT, MG, CMP, HS TROP, BNP #### [address] Automated eosinophil countOr dered By: Jose Guthrie on 07-06-2024 Eosinophils (Bld) [#/Vol] 0.0 10*3/uL Normal 0.0-0.45 [facility] Comment on above: Performed By: #### C K, PTT, CBC, PT, MG, CMP, HS TROP, BNP #### [address] Automated monocyte %Ordered By: Jose Guthrie on 07-06-2024 Monocytes/100 WBC (Bld) 10.1 % Normal . [facility] Comment on above: Performed By: #### C K, PTT, CBC, PT, MG, CMP, HS TROP, BNP #### [address] Automated neutrophil %Ordere d By: Jose Guthrie on 07-06-2024 Neutrophils/100 WBC (Bld) 79.2 % Normal . [facility] Comment on above: Performed By: #### C K, PTT, CBC, PT, MG, CMP, HS TROP, BNP #### [address] BNP ser/plasOrdered By: Cristela Guthrie on 07-06-2024 Natriuretic peptide B (Bld) [Mass/Vol] 111.0 pg/mL High 5-100 [facility] Comment on above: Result Comment: PERF ORMED BY: [place] [address] PATHOLOGIST WE[employer]ING [employer] OPERATOR KRISTINA ENNIS M.D. Performed By: #### C K, PTT, CBC, PT, MG, CMP, HS TROP, BNP #### [facility] [address] [place] [address] Bilirubin.total [Mass/volume ] in Serum or PlasmaOrdered By: Jose Guthrie on 07-06-2024 Bilirubin [Mass/Vol] 0.7 mg/dL Normal 0.3-1.0 [facility] Comment on above: Performed By: #### C K, PTT, CBC, PT, MG, CMP, HS TROP, BNP #### [facility] [address] [place] [address] Bilirubin [Mass/Vol] Bilirubin.total [Mass/volume] in Serum or Plasma 0.3-1.0 [facility] CT head/brain wo conon 07-06 CT head/brain wo con [facility] Main [place] [address] [place] [address] CT Scan Report Signed Patient: Thiago Sabillon MR#: [id number] 5 : 1950 Acct:[id number] Age/Sex: 73 / F ADM Date: 07/06/24 Loc: ER Room: Type: [facility] ER Attending Dr: Copies to: Jose Guthrie [...] Aden Avilez M.D.07/06/2024 4:19 PM Dictation Location: [place] [address] Transcribed By: [facility] 07/06/24 1619 Dictated By: Aden Aivlez DO 07/06/24 1617 Signed By: 07/06/24 1619 Normal [facility] Calcium [Mass/volume] in Ser um or PlasmaOrdered By: Jose Guthrie on 07-06-2024 Calcium [Mass/Vol] 8.8 mg/dL Normal 8.6-10.3 [facility] Comment on above: Performed By: #### C K, PTT, CBC, PT, MG, CMP, HS TROP, BNP #### [facility] [address] Carbon dioxide, total [Moles /volume] in Serum or PlasmaOrdered By: Jose Guthrie on 07-06-2024 CO2 [Moles/Vol] 25.6 mmol/L Normal 21.0-31.0 [facility] Comment on above: Performed By: #### C K, PTT, CBC, PT, MG, CMP, HS TROP, BNP #### [facility] [address] Chloride [Moles/volume] in S moe or PlasmaOrdered By: Jose Guthrie on 07-06-2024 Chloride [Moles/Vol] 100 mmol/L Normal 98-107 [facility] Comment on above: Performed By: #### C K, PTT, CBC, PT, MG, CMP, HS TROP, BNP #### [facility] [address] Complete Blood Count Auto Di ffon 07-06-2024 Mean Corpuscular HGB Conc 33.3 g/dL Normal 32.0-35.0 [facility] Comment on above: Performed By: #### C K, PTT, CBC, PT, MG, CMP, HS TROP, BNP #### [address] Monocytes/100 WBC (Bld) 17.45 % Normal 0.00-20.00 [facility] Comment on above: Performed By: #### C K, PTT, CBC, PT, MG, CMP, HS TROP, BNP #### [address] NRBC% 0.0 /100{WBC} Normal 0-0.5 [facility] Comment on above: Performed By: #### C K, PTT, CBC, PT, MG, CMP, HS TROP, BNP #### [address] Comprehensive Metabolic Pane simeon 07-06-2024 Albumin [Mass/Vol] 4.3 g/dL Normal 3.5-5.7 [facility] Comment on above: Performed By: #### C K, PTT, CBC, PT, MG, CMP, HS TROP, BNP #### [address] Creatinine Clr Calc Pharmacy 51.31 Normal [facility] Comment on above: Performed By: #### C K, PTT, CBC, PT, MG, CMP, HS TROP, BNP #### [address] GFR/1.73 sq M.predicted MDRD (S/P/Bld) [Vol rate/Area] mL/min/{1.73_m2} Normal [facility] Comment on above: Performed By: #### C K, PTT, CBC, PT, MG, CMP, HS TROP, BNP #### [address] Creatine kinase [Enzymatic a ctivity/volume] in Serum or PlasmaOrdered By: Jose Guthrie on 07-06-2024 CK [Catalytic activity/Vol] 606 U/L High 30-223 [facility] Comment on above: Performed By: #### C K, PTT, CBC, PT, MG, CMP, HS TROP, BNP #### [facility] [address] [place] [id number] [facility] CK [Catalytic activity/Vol] Creatine kinase [Enzymatic activity/volume] in Serum or Plasma High 30-223 [facility] Creatinine [Mass/volume] in Serum or PlasmaOrdered By: Jose Guthrie on 07-06-2024 Creatinine [Mass/Vol] 0.60 mg/dL Normal 0.60-1.20 [facility] Comment on above: Performed By: #### C K, PTT, CBC, PT, MG, CMP, HS TROP, BNP #### [facility] [address] [place] [id number] [facility] ECG 12 lead ECGon 07-06-2024 ECG 12 lead ECG [facility] [place] [address] Electrocardiograph Report Signed Patient: Thiago Sabillon MR#: [id number] 5 : 1950 Acct:[id number] Age/Sex: 73 / F ADM Date: 07/06/24 Loc: Room: [address] [place] [address] Type: ADM IN Attending Dr: Pedro Quintero [...] sinus arrhythmia Confirmed by Alistair TEJADA DO ([id number]) on 07/07/2024 2:24:58 AM Referred By: Electronically Signed By: Alistair TEJADA DO Transcribed By: MUS Signed By Alistair Tejada DO 1 0225 Normal [facility] ECG 12 lead ECG [facility] [place] [address] Electrocardiograph Report Signed Patient: Thiago Sabillon MR#: [id number] 5 : 1950 Acct:[id number] Age/Sex: 73 / F ADM Date: 07/06/24 Loc: Room: [address] [place] [address] Type: ADM IN Attending Dr: Pedro Quintero [...] Sinus bradycardia Confirmed by Joshua Chen DO ([id number]) on 07/07/2024 2:08:11 AM Referred By: Electronically Signed By: Joshua Chen DO Transcribed By: MUS Signed By Joshua Chen DO 0208 Normal [facility] Erythrocyte distribution wid th [Ratio] by Automated countOrdered By: Jose Guthrie on 07-06-2024 Erythrocyte distribution width (RBC) [Ratio] 14.5 % Normal 11.9-15.3 [facility] Comment on above: Performed By: #### C K, PTT, CBC, PT, MG, CMP, HS TROP, BNP #### [facility] [address] Erythrocytes [#/volume] in B lood by Automated countOrdered By: Jose Guthrie on 07-06-2024 RBC (Bld) [#/Vol] 4.42 10*6/uL Normal 3.60-5.00 [facility] Comment on above: Performed By: #### C K, PTT, CBC, PT, MG, CMP, HS TROP, BNP #### [facility] [address] Globulin Calc (S) [Mass/Vol] Ordered By: Jose Guthrie on 07-06-2024 Globulin (S) [Mass/Vol] Serum globulin measurement by calculation (mass/volume) [facility] Glucose [Mass/volume] in Ser um or PlasmaOrdered By: Jose Guthrie on 07-06-2024 Glucose [Mass/Vol] 102 mg/dL High 70-100 [facility] Comment on above: ADA recommended refe rence rangeRandom Glucose Reference Range is dependent on time and content of last meal. Glucose of more than 200 mg/dL in a nonstressed, ambulatory subject supports the diagnosis of Diabetes Mellitus. Result Comment: [place] om Glucose Reference Range is dependent on time and content of last meal. Glucose of more than 200 mg/dL in a nonstressed, ambulatory subject supports the diagnosis of Diabetes Mellitus. ADA recommended reference range Performed By: #### C K, PTT, CBC, PT, MG, CMP, HS TROP, BNP #### [address] Hematocrit [Volume Fraction] of Blood by Automated countOrdered By: Jose Guthrie on 07-06-2024 Hematocrit (Bld) [Volume fraction] 42.3 % Normal 34.0-46.4 [facility] Comment on above: Performed By: #### C K, PTT, CBC, PT, MG, CMP, HS TROP, BNP #### [address] Hemoglobin [Mass/volume] in BloodOrdered By: Jose Guthrie on 07-06-2024 Hemoglobin (Bld) [Mass/Vol] 14.1 g/dL Normal 11.8-15.4 [facility] Comment on above: Performed By: #### C K, PTT, CBC, PT, MG, CMP, HS TROP, BNP #### [address] INR in Platelet poor plasma by Coagulation assayOrdered By: Jose Guthrie on 07-06-2024 INR Coag (PPP) [Relative time] 0.9 {INR} Normal [facility] Comment on above: INR Therapeutic Rang e [...] 3 - 4.5 Performed By: #### C K, PTT, CBC, PT, MG, CMP, HS TROP, BNP #### [facility] [address] INR Coag (PPP) [Relative time] INR in Platelet poor plasma by Coagulation assay [facility] Comment on above: INR Therapeutic Rang e A) Pre- and Peroperative OAT started two weeks before surgery. NOT HIP SURGERY: 1.5 - 2.5 HIP SURGERY: 2 - 3B) Primary and secondary prevention of venous THROMBOSIS: 2 - 3C) Active venous thrombosis, pulmonary embolismand prevention of recurrent venous thrombosis: 2 - 3D) Prevention of arterial thromboembolismincluding patients with mechanical heart valves: 3 - 4.5 Leukocytes [#/volume] correc maryjane for nucleated erythrocytes in Blood by Automated counOrdered By: Jose Guthrie on 07-06-2024 WBC corrected for nucl RBC Auto (Bld) [#/Vol] 12.8 10*3/uL High 3.8-11.6 [facility] Leukocytes [#/volume] in Blo od by Automated countOrdered By: Jose Guthrie on 07-06-2024 WBC (Bld) [#/Vol] 12.8 10*3/uL High 3.8-11.6 [facility] Comment on above: Performed By: #### C K, PTT, CBC, PT, MG, CMP, HS TROP, BNP #### [facility] [address] Lymphocytes [#/volume] in Bl ood by Automated countOrdered By: Jose Guthrie on 07-06-2024 Lymphocytes (Bld) [#/Vol] 1.3 10*3/uL Normal 1.00-4.8 [facility] Comment on above: Performed By: #### C K, PTT, CBC, PT, MG, CMP, HS TROP, BNP #### [address] Lymphocytes/100 leukocytes i n Blood by Automated countOrdered By: Jose Guthrie on 07-06-2024 Lymphocytes/100 WBC (Bld) 10.0 % Normal . [facility] Comment on above: Performed By: #### C K, PTT, CBC, PT, MG, CMP, HS TROP, BNP #### [address] MCH [Entitic mass] by Automa maryjane countOrdered By: Jose Guthrie on 07-06-2024 MCH (RBC) [Entitic mass] 31.8 pg Normal 24.7-34.3 [facility] Comment on above: Performed By: #### C K, PTT, CBC, PT, MG, CMP, HS TROP, BNP #### [address] MCHC Auto (RBC) [Mass/Vol]Or dered By: Jose Guthrie on 07-06-2024 MCHC (RBC) [Mass/Vol] 33.3 g/dL 32.0-35.0 [facility] MCV [Entitic volume] by Auto mated countOrdered By: Jose Guthrie on 07-06-2024 MCV (RBC) [Entitic vol] 95.6 fL Normal 80-100 [facility] Comment on above: Performed By: #### C K, PTT, CBC, PT, MG, CMP, HS TROP, BNP #### [address] Magnesium [Mass/volume] in S moe or PlasmaOrdered By: Jose Guthrie on 07-06-2024 Magnesium [Mass/Vol] 1.9 mg/dL Normal 1.9-2.7 [facility] Comment on above: Result Comment: PERF ORMED BY: [place] [address] PATHOLOGIST WE[employer]ING [employer] OPERATOR KRISTINA ENNIS M.D. Performed By: #### C K, PTT, CBC, PT, MG, CMP, HS TROP, BNP #### [address] Magnesium [Mass/Vol] Magnesium [Mass/vol ume] in Serum or Plasma 1.9-2.7 [facility] Monocyte distribution width [Entitic volume] in Blood by AutomatedOrdered By: Jose Guthrie on 07-06-2024 Monocyte distribution width Auto (Bld) [Entitic vol] 17.45 % 0.00-20.00 [facility] Monocyte distribution width Auto (Bld) [Entitic vol] Monocyte distribution width [Entitic volume] in Blood by Automated 0.00-20.00 [facility] Natriuretic peptide B [Mass/ Vol]Ordered By: Jose Guthrie on 07-06-2024 Natriuretic peptide B (Bld) [Mass/Vol] BNP ser/plas High 5-100 [facility] Neutrophils [#/volume] in Bl ood by Automated countOrdered By: Jose Guthrie on 07-06-2024 Neutrophils (Bld) [#/Vol] 10.2 10*3/uL High 1.8-7.7 [facility] Comment on above: Performed By: #### C K, PTT, CBC, PT, MG, CMP, HS TROP, BNP #### [facility] [address] No Panel InformationOrdered By: Jose Guthrie on 07-06-2024 Estimated GFR (CKD-EPI) > 60.0 mL/Min [facility] Creatinine Clearance (Chem 51.31 [facility] Nucleated erythrocytes [Pres ence] in Blood by Automated countOrdered By: Jose Guthrie on 07-06-2024 Nucleated RBC Auto Ql (Bld) 0.0 /100{WBC} 0-0.5 [facility] Partial Thromboplastin Timeo n 07-06-2024 aPTT Coag (Bld) [Time] 24.6 s Low 25.1-36.5 [facility] Comment on above: Result Comment: A he matocrit value greater than 55% may lead to inaccurate results in coagulation testing. Patients having hematocrit values >55% require a special collection tube for coagulation studies. Please contact the laboratory at [phone] for redraw instructions. PERFORMED BY: [facility] [address] [facility] [place] [address] PATHOLOGIST WE[employer]ING STATION OPERATOR KRISTINA ENNIS M.D. Performed By: #### C K, PTT, CBC, PT, MG, CMP, HS TROP, BNP #### [facility] [address] [place] [address] [place] Platelet mean volume [Entiti c volume] in Blood by Automated countOrdered By: Jose Guthrie on 07-06-2024 Platelet mean volume (Bld) [Entitic vol] 7.6 fL Normal 6.3-10.7 [facility] Comment on above: Performed By: #### C K, PTT, CBC, PT, MG, CMP, HS TROP, BNP #### [facility] [address] [place] [address] [place] Platelets [#/volume] in Bloo d by Automated countOrdered By: Jose Guthrie on 07-06-2024 Platelets (Bld) [#/Vol] 243 10*3/uL Normal 150-450 [facility] Comment on above: Performed By: #### C K, PTT, CBC, PT, MG, CMP, HS TROP, BNP #### [facility] [address] [place] [address] [place] Potassium [Moles/volume] in Serum or PlasmaOrdered By: Jose Guthrie on 07-06-2024 Potassium [Moles/Vol] 4.0 mmol/L Normal 3.5-5.1 [facility] Comment on above: Performed By: #### C K, PTT, CBC, PT, MG, CMP, HS TROP, BNP #### [facility] [address] [place] [address] [place] Protein [Mass/volume] in Ser um or PlasmaOrdered By: Jose Guthrie on 07-06-2024 Protein [Mass/Vol] 6.8 g/dL Normal 6.4-8.9 [facility] Comment on above: Performed By: #### C K, PTT, CBC, PT, MG, CMP, HS TROP, BNP #### [facility] [address] [place] [address] [place] Protein [Mass/Vol] Protein [Mass/volume ] in Serum or Plasma 6.4-8.9 [facility] Prothrombin time (PT)Ordered By: Jose Guthrie on 07-06-2024 PT Coag (PPP) [Time] 11.0 s Normal 9.0-12.9 [facility] Comment on above: A hematocrit value g reater than 55% may lead to inaccurate results in coagulation testing. Patients having hematocrit values >55% require a special collection tube for coagulation studies. Please contact the laboratory at [phone] for redraw instructions. Result Comment: A he matocrit value greater than 55% may lead to inaccurate results in coagulation testing. Patients having hematocrit values >55% require a special collection tube for coagulation studies. Please contact the laboratory at [phone] for redraw instructions. Performed By: #### C K, PTT, CBC, PT, MG, CMP, HS TROP, BNP #### [facility] [address] [place] [address] PT Coag (PPP) [Time] Prothrombin time (PT) 9.0- 12.9 [facility] Comment on above: A hematocrit value g reater than 55% may lead to inaccurate results in coagulation testing. Patients having hematocrit values >55% require a special collection tube for coagulation studies. Please contact the laboratory at [phone] for redraw instructions. Serum globulin measurement b y calculation (mass/volume)Ordered By: Jose Guthrie on 07-06-2024 Globulin (S) [Mass/Vol] 2.5 g/dL Normal [facility] Comment on above: Performed By: #### C K, PTT, CBC, PT, MG, CMP, HS TROP, BNP #### [facility] [address] [place] [address] Serum or plasma albumin/glob ulin mass ratioOrdered By: Jose Guthrie on 07-06-2024 Albumin/Globulin [Mass ratio] 1.7 {ratio} [facility] Comment on above: Performed By: #### C K, PTT, CBC, PT, MG, CMP, HS TROP, BNP #### [facility] [address] [place] [address] Albumin/Globulin [Mass ratio] Serum or plasma albumin/globulin mass ratio [facility] Serum or plasma anion gap de terminationOrdered By: Jose Guthrie on 07-06-2024 Anion gap [Moles/Vol] 11.4 mmol/L Normal 6.0-15.0 [facility] Comment on above: Performed By: #### C K, PTT, CBC, PT, MG, CMP, HS TROP, BNP #### [address] Sodium [Moles/volume] in Ser um or PlasmaOrdered By: Jose Guthrie on 07-06-2024 Sodium [Moles/Vol] 133 mmol/L Low 136-145 [facility] Comment on above: Performed By: #### C K, PTT, CBC, PT, MG, CMP, HS TROP, BNP #### [address] Troponin I High Sensitivityo n 07-06-2024 Troponin I High Sensitivity 5.1 pg/mL Normal 0.0-15.0 [facility] Comment on above: Result Comment: PERF ORMED BY: [place] [address] PATHOLOGIST WE[employer]ING ST[employer] OPERATOR KRISTINA ENNIS M.D. Performed By: #### C K, PTT, CBC, PT, MG, CMP, HS TROP, BNP #### [address] Troponin I.cardiac [Mass/vol ume] in Serum or Plasma by Detection limit <= 0.01 ng/Ordered By: Jose Guthrie on 07-06-2024 Troponin I.cardiac DL <= 0.01 ng/mL [Mass/Vol] 5.1 pg/mL 0.0-15.0 [facility] Troponin I.cardiac DL <= 0.01 ng/mL [Mass/Vol] Troponin I.cardiac [Mass/volume] in Serum or Plasma by Detection limit <= 0.01 ng/ 0.0-15.0 [facility] Urea nitrogen [Mass/volume] in Serum or PlasmaOrdered By: Jose Guthrie on 07-06-2024 Urea nitrogen [Mass/Vol] 28 mg/dL High 7-25 [facility] Comment on above: Performed By: #### C K, PTT, CBC, PT, MG, CMP, HS TROP, BNP #### [facility] [address] [place] [id number] [facility] XR chest 1V portableon 07-06 XR chest 1V portable [facility] Main [place] [address] [place] [id number] XRay Report Signed Patient: Thiago Sabillon MR#: [id number] 5 : 1950 Acct:[id number] Age/Sex: 73 / F ADM Date: 07/06/24 Loc: ER Room: Type: [facility] ER Attending Dr: Copies to: Jose Guthrie [...] Aden Avilez M.D.07/06/2024 4:21 PM Dictation Location: [place] [address] Transcribed By: [facility] 07/06/24 1621 Dictated By: Aden Avilez DO 07/06/24 1620 Signed By: 07/06/24 1621 Normal [facility] aPTT in Platelet poor plasma by Coagulation assayOrdered By: Jose Guthrie on 07-06-2024 aPTT Coag (PPP) [Time] Activated partial thromboplastin time (aPTT) in platelet poor plasma by coagulation a Low 25.1-36.5 [facility] Comment on above: A hematocrit value g reater than 55% may lead to inaccurate results in coagulation testing. Patients having hematocrit values >55% require a special collection tube for coagulation studies. Please contact the laboratory at [phone] for redraw instructions. ABO/Rh Retypeon 07-05-2024 ABO/RH Recheck Result Positive Normal [facility] Comment on above: Result Comment: PERF ORMED BY: [place] [id number] PATHOLOGIST WE[employer]ING [employer] OPERATOR KRISTINA ENNIS M.D. Albumin Levelon 07-05-2024 Albumin [Mass/Vol] 3.9 g/dL Normal 3.5-5.7 [facility] Comment on above: Result Comment: PERF ORMED BY: [place] [id number] PATHOLOGIST WEIGHING STATION OPERATOR KRISTINA ENNIS M.D. Performed By: #### U A #### [address] Albumin [Mass/volume] in Ser um or Plasma by Bromocresol green (BCG) dye binding methoOrdered By: Vernell Alvarez on 07-05-2024 Albumin BCG dye [Mass/Vol] 3.9 g/dL 3.5-5.7 [facility] Albumin BCG dye [Mass/Vol] Albumin [Mass/volume] in Serum or Plasma by Bromocresol green (BCG) dye binding metho 3.5-5.7 [facility] Simeon 07-05-2024 L Specimen: [id number] Received: 07/06/24 Status: SERGE Mccartney Num: [id number] Spec Type: Surgical Subm Dr: Vernell Alvarez MD Tissues: A Femoral Head - Other than Fracture (L HIP) Procedures: HE/2, Gross/Micro L3, Decalcification Age/ Patient Sex Location Account Attending Physician Thiago Sabillon 73/F [place] [id number] Vernell Alvarez MD SPEC NUM: [id number] RECD: 07/06/24 STATUS: SERGE MCCARTNEY NUM: [id number] DENTON: 07/05/24 DR: Vernell Alvarez MD ENTERED: 07/06/[address] [facility] DR: SPEC TYPE: Surgical DEPT: S ENTERED BY: [id number] RECV BY: [id number] ORDERED: HE/2, Gross/Micro L3, Decalcification ORDERED: HE/2, Gross/Micro L3, Decalcification Pathological Diagnosis Left hip bone and tissue, total hip arthroplasty -Femoral head with severe degenerative osteoarthritis, displaying patchy marked articular erosion and cortical eburnation with mildly associated bony remodeling, and including multiple and the markedly irregularly thickened osteophytic degenerations, consistent with the severe degenerative joint disease of the left hip Clinical Information DJD Gross Description The specimen is received in formalin with the patient's name and left hip bone and tissue and consists of a ramirez-pink femoral head measuring 7.0 x 5.5 x 5.5 cm. The articular surface is ramirez-pink roughened with a area of eburnation measuring 4.0 cm in greatest dimension. Extreme osteophytic lipping is identified. [employer]ing [employer] sections are submitted as follows: A1 eburnation and soft tissue, (submitted in decal before routine processing) A2 osteophytic lipping, (submitted in decal before routine processing) DM Specimen: [id number] Received: 07/06/24 Status: SERGE David Num: [id number] Spec Type: Surgical Subm Dr: Vernell Alvarez MD Tissues: A Femoral Head - Other than Fracture (L HIP) Procedures: HE/Sreedhar, Gross/Micro L3, Decalcification Patient: Thiago Sabillon [id number] (Continued) Specimen: [id number] Received: 07/06/24 (Continued) Signed (signature on file) ChinSae Scott MD 07/13/24 1313 Specimen: [id number] Received: 07/06/24 Status: SERGE Mccartney Num: [id number] Spec Type: Surgical Subm Dr: Vernell Alvarez MD Tissues: A Femoral Head - Other than Fracture (L HIP) Procedures: HE/2, Gross/Micro L3, Decalcification Patient: Thiago Sabillon [id number] (Continued) Specimen: [id number] Received: 07/06/24 (Continued) Microscopic Description Microscopic examinations are performed supporting the above interpretation CPT Codes 94869 [id number] Specimen: [id number] Received: 07/06/24 Status: SERGE David Num: [id number] Spec Type: Surgical Subm Dr: Vernell Alvarez MD Tissues: A Femoral Head - Other than Fracture (L HIP) Procedures: HE/2, Gross/Micro L3, Decalcification Patient: Thiago Sabillon [id number] (Continued) Signed (signature on file) Ascencion Scott MD 07/13/24 1313 Normal [facility] XR hip LT min 2V(w/wo pelvis )*on 07-05-2024 XR hip LT min 2V(w/wo pelvis)* [facility] Main [address] [address] XRay Report Signed Patient: Thiago Sabillon MR#: [id number] 5 : 1950 Acct:[id number] Age/Sex: 73 / F ADM Date: 07/05/24 Loc: [place] Room: Type: [facility] Attending Dr: Vernell Alvarez II, MD Copies [...] Aden Avilez M.D.07/05/2024 8:21 PM Dictation Location: [place] [address] Transcribed By: [facility] 07/05/242020 Dictated By: Aden Avilez DO 07/05/24 2019 Signed By: 07/05/242020 Normal [facility] XR Hip - right 3 [facility] Result: X-rays AP and lateral of the right hip performed today June 22, 2024 demonstrate total hip replacement in good position alignment. There is calcification at the tip consistent with a formation of a pedestal and there appears to be some lucency around the distal stem of the prosthesis which may represent loosening. Impression: Total hip replacement in good position alignment with signs of loosening of the stem Kameron Barry D.O. [facility] Study observation (narrative) [facility] Appearance of UrineOrdered B y: Vernell Alvarez on 06-21-2024 Appearance (U) Urine appearance Clear [facility] Automated basophil %Ordered By: Vernell Alvarez on 06-21-2024 Basophils/100 WBC (Bld) 0.6 % Normal . [facility] Comment on above: Performed By: #### U A #### [address] Automated basophil countOrde red By: Vernell Alvarez on 06-21-2024 Basophils (Bld) [#/Vol] 0.0 10*3/uL Normal 0.0-0.2 [facility] Comment on above: Result Comment: PERF ORMED BY: [place] [address] PATHOLOGIST WE[employer]ING STATION OPERATOR KRISTINA ENNIS M.D. Performed By: #### U A #### [address] Automated blood monocyte cou ntOrdered By: Vernell Alvarez on 06-21-2024 Monocytes (Bld) [#/Vol] 0.7 10*3/uL Normal 0.0-0.8 [facility] Comment on above: Performed By: #### U A #### [address] Automated eosinophil %Ordere d By: Vernell Alvarez on 06-21-2024 Eosinophils/100 WBC (Bld) 1.8 % Normal . [facility] Comment on above: Performed By: #### U A #### [address] Automated eosinophil countOr dered By: Vernell Alvarez on 06-21-2024 Eosinophils (Bld) [#/Vol] 0.1 10*3/uL Normal 0.0-0.45 [facility] Comment on above: Performed By: #### U A #### [address] Automated monocyte %Ordered By: Vernell Alvarez on 06-21-2024 Monocytes/100 WBC (Bld) 12.3 % Normal . [facility] Comment on above: Performed By: #### U A #### [address] Automated neutrophil %Ordere d By: Vernell Alvarez on 06-21-2024 Neutrophils/100 WBC (Bld) 61.3 % Normal . [facility] Comment on above: Performed By: #### U A #### [address] Basic Metabolic Panelon 06-06 GFR/1.73 sq M.predicted MDRD (S/P/Bld) [Vol rate/Area] mL/min/{1.73_m2} Normal [facility] Comment on above: Performed By: #### U A #### [facility] [address] [place] [address] Basophils Auto (Bld) [#/Vol] Ordered By: Vernell Alvarez on 06-21-2024 Basophils (Bld) [#/Vol] Automated basophil count 0.0-0.2 [facility] Basophils/100 WBC Auto (Bld) Ordered By: Vernell Alvarez on 06-21-2024 Basophils/100 WBC (Bld) Automated basophil % . [facility] Bilirubin Test strip Ql (U)O rdered By: Vernell Alvarez on 06-21-2024 Bilirubin Ql (U) Negative Negative [facility] Bilirubin Ql (U) Bilirubin.total [Pre sence] in Urine by Test strip Negative [facility] Calcium [Mass/volume] in Ser um or PlasmaOrdered By: Vernell Alvarez on 06-21-2024 Calcium [Mass/Vol] 9.0 mg/dL Normal 8.6-10.3 [facility] Comment on above: Result Comment: PERF ORMED BY: [place] [address] PATHOLOGIST WE[employer]ING [employer]ATION OPERATOR KRISTINA ENNIS M.D. Performed By: #### U A #### [facility] [address] [place] [address] Calcium [Mass/Vol] Calcium [Mass/volume ] in Serum or Plasma 8.6-10.3 [facility] Carbon dioxide, total [Moles /volume] in Serum or PlasmaOrdered By: Vernell Alvarez on 06-21-2024 CO2 [Moles/Vol] 31.0 mmol/L Normal 21.0-31.0 [facility] Comment on above: Performed By: #### U A #### [facility] [address] CO2 [Moles/Vol] Carbon dioxide, tota l [Moles/volume] in Serum or Plasma 21.0-31.0 [facility] Chloride [Moles/volume] in S moe or PlasmaOrdered By: Vernell Alvarez on 06-21-2024 Chloride [Moles/Vol] 106 mmol/L Normal 98-107 [facility] Comment on above: Performed By: #### U A #### [address] Chloride [Moles/Vol] Chloride [Moles/vol ume] in Serum or Plasma 98-107 [facility] Color Auto (U)Ordered By: Madelaine Alvarez on 06-21-2024 Color (U) Color of Urine by Auto Yellow [facility] Color of Urine by AutoOrdere d By: Vernell Alvarez on 06-21-2024 Color (U) Colorless Normal Yellow [facility] Comment on above: Order Comment: Name Collection Type:: Clean-Voided Midstream Performed By: #### C K, PTT, CBC, PT, MG, CMP, HS TROP, BNP #### [address] Complete Blood Count Auto Di ffon 06-21-2024 Mean Corpuscular HGB Conc 33.6 g/dL Normal 32.0-35.0 [facility] Comment on above: Performed By: #### U A #### [address] NRBC% 0.1 /100{WBC} Normal 0-0.5 [facility] Comment on above: Performed By: #### U A #### [address] Creatinine [Mass/volume] in Serum or PlasmaOrdered By: Vernell Alvarez on 06-21-2024 Creatinine [Mass/Vol] 0.64 mg/dL Normal 0.60-1.20 [facility] Comment on above: Performed By: #### U A #### [facility] [address] Creatinine [Mass/Vol] Creatinine [Mass/v olume] in Serum or Plasma 0.60-1.20 [facility] ECG 12 lead ECGon 06-21-2024 ECG 12 lead ECG [facility] Main [place] [address] [place] [address] Electrocardiograph Report Signed Patient: Thiago Sabillon MR#: [id number] 5 : 1950 Acct:[id number] Age/Sex: 73 / F ADM Date: 06/21/24 Loc: Room: Type: [facility] Attending Dr: Vernell Alvarez II, MD Ordering [...] previous ECGs available Confirmed by MATIAS ALEXANDER [facility], RITIKA ([id number]) on 06/21/2024 8:23:22 PM Referred By: Electronically Signed By: RITIKA SALCEDO MD [facility] Transcribed By: [facility] Signed By Riitka Salcedo MD, [facility] 06/21/242022 Normal [facility] Eosinophils Auto (Bld) [#/Vo l]Ordered By: Vernell Alvarez on 06-21-2024 Eosinophils (Bld) [#/Vol] Automated eosinophil count 0.0-0.45 [facility] Eosinophils/100 WBC Auto (Bl d)Ordered By: Vernell Alvarez on 06-21-2024 Eosinophils/100 WBC (Bld) Automated eosinophil % . [facility] Erythrocyte distribution wid th Auto (RBC) [Ratio]Ordered By: Vernell Alvarez on 06-21-2024 Erythrocyte distribution width (RBC) [Ratio] Erythrocyte distribution width [Ratio] by Automated count 11.9-15.3 [facility] Erythrocyte distribution wid th [Ratio] by Automated countOrdered By: Vernell Alvarez on 06-21-2024 Erythrocyte distribution width (RBC) [Ratio] 14.5 % Normal 11.9-15.3 [facility] Comment on above: Performed By: #### U A #### [address] Erythrocytes [#/volume] in B lood by Automated countOrdered By: Vernell Alvarez on 06-21-2024 RBC (Bld) [#/Vol] 4.11 10*6/uL Normal 3.60-5.00 [facility] Comment on above: Performed By: #### U A #### [address] Fructosamineon 06-21-2024 Fructosamine 219 umol/L Normal 0-285 [facility] Comment on above: Result Comment: Publ ished reference interval for apparently healthy subjects between age 20 and 60 is 205 - 285 umol/L and in a poorly controlled diabetic population is 228 - 563 umol/L with a mean of 396 umol/L. Performed at: [facility] [address] [id number] [employer] Machine Operator: Roque Alex PhD, Phone: [phone] PERFORMED BY: [place] [address] PATHOLOGIST WEIGHING STATION OPERATOR KRISTINA ENNIS M.D. Performed By: #### U A #### [address] Fructosamine [Moles/volume] in Serum or PlasmaOrdered By: Vernell Alvarez on 06-21-2024 Fructosamine [Moles/Vol] 219 umol/L 0-285 [facility] Comment on above: Published reference interval for apparently healthysubjects between age 20 and 60 is 205 - 285 umol/L and in apoorly controlled diabetic population is 228 - 563 umol/Lwith a mean of 396 umol/L.Performed at: [facility] [address] [id number] Director: Roque Alex PhD, Phone: [phone] Fructosamine [Moles/Vol] Fructosamine [Moles/volume] in Serum or Plasma 0-285 [facility] Comment on above: Published reference interval for apparently healthysubjects between age 20 and 60 is 205 - 285 umol/L and in apoorly controlled diabetic population is 228 - 563 umol/Lwith a mean of 396 umol/L.Performed at: [employer] [facility] [id number] Director: Roque Alex PhD, Phone: [phone] Glucose [Mass/volume] in Ser um or PlasmaOrdered By: Vernell Alvarez on 06-21-2024 Glucose [Mass/Vol] 81 mg/dL Normal 70-100 [facility] Comment on above: ADA recommended refe rence rangeRandom Glucose Reference Range is dependent on time and content of last meal. Glucose of more than 200 mg/dL in a nonstressed, ambulatory subject supports the diagnosis of Diabetes Mellitus. Result Comment: [facility] Glucose Reference Range is dependent on time and content of last meal. Glucose of more than 200 mg/dL in a nonstressed, ambulatory subject supports the diagnosis of Diabetes Mellitus. ADA recommended reference range Performed By: #### U A #### [address] Glucose [Mass/Vol] Glucose [Mass/volume ] in Serum or Plasma 70-100 [facility] Comment on above: ADA recommended refe rence rangeRandom Glucose Reference Range is dependent on time and content of last meal. Glucose of more than 200 mg/dL in a nonstressed, ambulatory subject supports the diagnosis of Diabetes Mellitus. Glucose [Mass/volume] in Uri ne by Test stripOrdered By: Vernell Alvarez on 06-21-2024 Glucose Test strip (U) [Mass/Vol] Normal mg/dL [facility] Glucose Test strip (U) [Mass/Vol] Glucose [Mass/volume] in Urine by Test strip [facility] Hematocrit Auto (Bld) [Volum e fraction]Ordered By: Vernell Alvarez on 06-21-2024 Hematocrit (Bld) [Volume fraction] Hematocrit [Volume Fraction] of Blood by Automated count 34.0-46.4 [facility] Hematocrit [Volume Fraction] of Blood by Automated countOrdered By: Vernell Alvarez on 06-21-2024 Hematocrit (Bld) [Volume fraction] 38.8 % Normal 34.0-46.4 [facility] Comment on above: Performed By: #### U A #### [facility] [address] Hemoglobin Test strip Ql (U) Ordered By: Vernell Alvarez on 06-21-2024 Hemoglobin Ql (U) Negative Negative [facility] Hemoglobin Ql (U) Hemoglobin [Presence ] in Urine by Test strip Negative [facility] Hemoglobin [Mass/volume] in BloodOrdered By: Vernell Alvarez on 06-21-2024 Hemoglobin (Bld) [Mass/Vol] 13.0 g/dL Normal 11.8-15.4 [facility] Comment on above: Performed By: #### U A #### [facility] [address] Hemoglobin (Bld) [Mass/Vol] Hemoglobin [Mass/volume] in Blood 11.8-15.4 [facility] Ketones Test strip Ql (U)Ord ered By: Vernell Alvarez on 06-21-2024 Ketones Ql (U) Ketones [Presence] i n Urine by Test strip Negative [facility] Ketones [Presence] in Urine by Test stripOrdered By: Vernell Alvarez on 06-21-2024 Ketones Ql (U) Negative Normal Negative [facility] Comment on above: Order Comment: Name Collection Type:: Clean-Voided Midstream Performed By: #### C K, PTT, CBC, PT, MG, CMP, HS TROP, BNP #### [facility] [address] Leukocyte esterase [Presence ] in Urine by Test stripOrdered By: Vernell Alvarez on 06-21-2024 Leukocyte esterase Test strip Ql (U) Negative Normal Negative [facility] Comment on above: Order Comment: Name Collection Type:: Clean-Voided Midstream Performed By: #### C K, PTT, CBC, PT, MG, CMP, HS TROP, BNP #### [facility] [address] [place] [address] Leukocyte esterase Test strip Ql (U) Leukocyte esterase [Presence] in Urine by Test strip Negative [facility] Leukocytes [#/volume] correc maryjane for nucleated erythrocytes in Blood by Automated counOrdered By: Vernell Alvarez on 06-21-2024 WBC corrected for nucl RBC Auto (Bld) [#/Vol] 5.8 10*3/uL 3.8-11.6 [facility] WBC corrected for nucl RBC Auto (Bld) [#/Vol] Leukocytes [#/volume] corrected for nucleated erythrocytes in Blood by Automated coun 3.8-11.6 [facility] Leukocytes [#/volume] in Blo od by Automated countOrdered By: Vernell Alvarez on 06-21-2024 WBC (Bld) [#/Vol] 5.8 10*3/uL Normal 3.8-11.6 [facility] Comment on above: Performed By: #### U A #### [address] Lymphocytes Auto (Bld) [#/Vo l]Ordered By: Vernell Alvarez on 06-21-2024 Lymphocytes (Bld) [#/Vol] Lymphocytes [#/volume] in Blood by Automated count 1.00-4.8 [facility] Lymphocytes [#/volume] in Bl ood by Automated countOrdered By: Vernell Alvarez on 06-21-2024 Lymphocytes (Bld) [#/Vol] 1.4 10*3/uL Normal 1.00-4.8 [facility] Comment on above: Performed By: #### U A #### [facility] [address] [place] [address] Lymphocytes/100 WBC Auto (Bl d)Ordered By: Vernell Alvarez on 06-21-2024 Lymphocytes/100 WBC (Bld) Lymphocytes/100 leukocytes in Blood by Automated count . [facility] Lymphocytes/100 leukocytes i n Blood by Automated countOrdered By: Vernell Alvarez on 06-21-2024 Lymphocytes/100 WBC (Bld) 24.0 % Normal . [facility] Comment on above: Performed By: #### U A #### [facility] [address] [place] [address] MCH Auto (RBC) [Entitic mass ]Ordered By: Vernell Alvarez on 06-21-2024 MCH (RBC) [Entitic mass] MCH [Entitic mass] by Automated count 24.7-34.3 [facility] MCH [Entitic mass] by Automa maryjane countOrdered By: Vernell Alvarez on 06-21-2024 MCH (RBC) [Entitic mass] 31.7 pg Normal 24.7-34.3 [facility] Comment on above: Performed By: #### U A #### [facility] [address] [place] [address] MCHC Auto (RBC) [Mass/Vol]Or dered By: Vernell Alvarez on 06-21-2024 MCHC (RBC) [Mass/Vol] 33.6 g/dL 32.0-35.0 [facility] MCHC (RBC) [Mass/Vol] MCHC [Mass/volume] by Automated count 32.0-35.0 [facility] MCV Auto (RBC) [Entitic vol] Ordered By: Vernell Alvarez on 06-21-2024 MCV (RBC) [Entitic vol] MCV [Entitic volume] by Automated count 80-100 [facility] MCV [Entitic volume] by Auto mated countOrdered By: Vernell Alvarez on 06-21-2024 MCV (RBC) [Entitic vol] 94.5 fL Normal 80-100 [facility] Comment on above: Performed By: #### U A #### [facility] [address] [place] [address] Monocytes Auto (Bld) [#/Vol] Ordered By: Vernell Alvarez on 06-21-2024 Monocytes (Bld) [#/Vol] Automated blood monocyte count 0.0-0.8 [facility] Monocytes/100 WBC Auto (Bld) Ordered By: Vernell Alvarez on 06-21-2024 Monocytes/100 WBC (Bld) Automated monocyte % . [facility] Neutrophils Auto (Bld) [#/Vo l]Ordered By: Vernell Alvarez on 06-21-2024 Neutrophils (Bld) [#/Vol] Neutrophils [#/volume] in Blood by Automated count 1.8-7.7 [facility] Neutrophils [#/volume] in Bl ood by Automated countOrdered By: Vernell Alvarez on 06-21-2024 Neutrophils (Bld) [#/Vol] 3.6 10*3/uL Normal 1.8-7.7 [facility] Comment on above: Performed By: #### U A #### [address] Neutrophils/100 WBC Auto (Bl d)Ordered By: Vernell Alvarez on 06-21-2024 Neutrophils/100 WBC (Bld) Automated neutrophil % . [facility] Nitrite Test strip Ql (U)Ord ered By: Vernell Alvarez on 06-21-2024 Nitrite Ql (U) Negative Negative [facility] Nitrite Ql (U) Nitrite [Presence] i n Urine by Test strip Negative [facility] No Panel InformationOrdered By: Vernell Alvarez on 06-21-2024 Estimated GFR (CKD-EPI) > 60.0 mL/Min [facility] Creatinine Clearance (Chem N/A [facility] Nucleated erythrocytes [Pres ence] in Blood by Automated countOrdered By: Vernell Alvarez on 06-21-2024 Nucleated RBC Auto Ql (Bld) 0.1 /100{WBC} 0-0.5 [facility] Nucleated RBC Auto Ql (Bld) Nucleated erythrocytes [Presence] in Blood by Automated count 0-0.5 [facility] PST Type and Screenon 2023 ABO and Rh group Nom (Bld) Blood group A Rh(D) positive Normal [facility] Comment on above: Order Comment: Name Collection Type:: Voided Order Comment: Date of Surgery: [id number] Result Comment: PERF ORMED BY: [facility] [address] [place] [address] PATHOLOGIST WE[employer]ING [employer]ATION OPERATOR KRISTINA ENNIS M.D. Platelet mean volume Auto (B ld) [Entitic vol]Ordered By: Vernell Alvarez on 06-21-2024 Platelet mean volume (Bld) [Entitic vol] Platelet mean volume [Entitic volume] in Blood by Automated count 6.3-10.7 [facility] Platelet mean volume [Entiti c volume] in Blood by Automated countOrdered By: Vernell Alvarez on 06-21-2024 Platelet mean volume (Bld) [Entitic vol] 7.6 fL Normal 6.3-10.7 [facility] Comment on above: Performed By: #### U A #### [facility] [address] Platelets Auto (Bld) [#/Vol] Ordered By: Vernell Alvarez on 06-21-2024 Platelets (Bld) [#/Vol] Platelets [#/volume] in Blood by Automated count 150-450 [facility] Platelets [#/volume] in Bloo d by Automated countOrdered By: Vernell Alvarez on 06-21-2024 Platelets (Bld) [#/Vol] 228 10*3/uL Normal 150-450 [facility] Comment on above: Performed By: #### U A #### [facility] [address] [place] [address] Potassium [Moles/volume] in Serum or PlasmaOrdered By: Vernell Alvarez on 06-21-2024 Potassium [Moles/Vol] 4.6 mmol/L Normal 3.5-5.1 [facility] Comment on above: Performed By: #### U A #### [facility] [address] [place] [address] Potassium [Moles/Vol] Potassium [Moles/v olume] in Serum or Plasma 3.5-5.1 [facility] Protein Test strip (U) [Mass /Vol]Ordered By: Vernell Alvarez on 06-21-2024 Protein (U) [Mass/Vol] Negative Negative [facility] Protein (U) [Mass/Vol] Protein [Mass/volume] in Urine by Test strip Negative [facility] RBC Auto (Bld) [#/Vol]Ordere d By: Vernell Alvarez on 06-21-2024 RBC (Bld) [#/Vol] Erythrocytes [#/volu me] in Blood by Automated count 3.60-5.00 [facility] Serum or plasma anion gap de terminationOrdered By: Vernell Alvarez on 06-21-2024 Anion gap [Moles/Vol] 8.6 mmol/L Normal 6.0-15.0 [facility] Comment on above: Performed By: #### U A #### [address] Anion gap [Moles/Vol] Serum or plasma an ion gap determination 6.0-15.0 [facility] Sodium [Moles/volume] in Ser um or PlasmaOrdered By: Vernell Alvarez on 06-21-2024 Sodium [Moles/Vol] 141 mmol/L Normal 136-145 [facility] Comment on above: Performed By: #### U A #### [address] Sodium [Moles/Vol] Sodium [Moles/volume ] in Serum or Plasma 136-145 [facility] Specific gravity Test strip (U) [Rel density]Ordered By: Vernell Alvarez on 06-21-2024 Specific gravity (U) [Rel density] 1.015 1.001-1.03 0 [facility] Specific gravity (U) [Rel density] Specific gravity of Urine by Test strip 1.001-1.03 0 [facility] Urea nitrogen [Mass/volume] in Serum or PlasmaOrdered By: Vernell Alvarez on 06-21-2024 Urea nitrogen [Mass/Vol] 32 mg/dL [facility] 04-29 [facility] Comment on above: Performed By: #### U A #### [address] Urea nitrogen [Mass/Vol] Urea nitrogen [Mass/volume] in Serum or Plasma [facility] 04-29 [facility] Urinalysison 06-21-2024 Bilirubin,Urine Negative Normal Negative [facility] Comment on above: Order Comment: Name Collection Type:: Clean-Voided Midstream Performed By: #### C K, PTT, CBC, PT, MG, CMP, HS TROP, BNP #### [address] Glucose Ql (U) Normal Normal Normal [facility] Comment on above: Order Comment: Name Collection Type:: Clean-Voided Midstream Performed By: #### C K, PTT, CBC, PT, MG, CMP, HS TROP, BNP #### [address] Nitrite,Urine Negative Normal Negative [facility] Comment on above: Order Comment: Name Collection Type:: Clean-Voided Midstream Performed By: #### C K, PTT, CBC, PT, MG, CMP, HS TROP, BNP #### [address] Occult Blood,Urine Negative Normal Negative [facility] Comment on above: Order Comment: Name Collection Type:: Clean-Voided Midstream Result Comment: PERF ORMED BY: [place] [address] PATHOLOGIST WE[employer]ING [employer]ATION OPERATOR KRISTINA ENNIS M.D. Performed By: #### C K, PTT, CBC, PT, MG, CMP, HS TROP, BNP #### [address] Protein,Urine Negative Normal Negative [facility] Comment on above: Order Comment: Name Collection Type:: Clean-Voided Midstream Performed By: #### C K, PTT, CBC, PT, MG, CMP, HS TROP, BNP #### [address] Specificy [place],Urine 1.015 Normal 1.001-1.03 0 [facility] Comment on above: Order Comment: Name Collection Type:: Clean-Voided Midstream Performed By: #### C K, PTT, CBC, PT, MG, CMP, HS TROP, BNP #### [address] Urobilinogen,Urine Normal Normal Normal [facility] Comment on above: Order Comment: Name Collection Type:: Clean-Voided Midstream Performed By: #### C K, PTT, CBC, PT, MG, CMP, HS TROP, BNP #### [facility] [address] Urine appearanceOrdered By: Vernell Alvarez on 06-21-2024 Appearance (U) Clear Normal Clear [facility] Comment on above: Order Comment: Name Collection Type:: Clean-Voided Midstream Performed By: #### C K, PTT, CBC, PT, MG, CMP, HS TROP, BNP #### [facility] [address] Urobilinogen Test strip (U) [Mass/Vol]Ordered By: Vernell Alvarez on 06-21-2024 Urobilinogen (U) [Mass/Vol] Normal mg/dL Normal [facility] Urobilinogen (U) [Mass/Vol] Urobilinogen [Mass/volume] in Urine by Test strip Normal [facility] WBC Auto (Bld) [#/Vol]Ordere d By: Vernell Alvraez on 06-21-2024 WBC (Bld) [#/Vol] Leukocytes [#/volume ] in Blood by Automated count 3.8-11.6 [facility] pH Test strip (U)Ordered By: Vernell Alvarez on 06-21-2024 pH (U) pH of Urine by Test strip 5.0-9.0 [facility] pH of Urine by Test stripOrd ered By: Vernell Alvarez on 06-21-2024 pH (U) 7.0 [pH] Normal 5.0-9.0 [facility] Comment on above: Order Comment: Name Collection Type:: Clean-Voided Midstream Performed By: #### C K, PTT, CBC, PT, MG, CMP, HS TROP, BNP #### [facility] [address] [place] [address] Glucose mean value [Mass/vol ume] in Blood Estimated from glycated hemoglobinon 04-16-2024 Average glucose Estimated from glycated hemoglobin (Bld) [Mass/Vol] 117 mg/dL [facility] Hemoglobin [Mass/volume] in Bloodon 04-16-2024 Hemoglobin (Bld) [Mass/Vol] 12.2 g/dL 12.0-16.0 [facility] Laboratory - Chemistry and C hemistry - challengeon 04-16-2024 Albumin [Mass/Vol] 3.1 g/dL Low 3.4-5.0 [facility] - Hematology and Cell countson 04-16-2024 HbA1c (Bld) [Mass fraction] 5.7 % 4.5-6.2 [facility] Comment on above: ADA RECOMMENDED LIMI T 4.0 - 6.0ADA THERAPEUTIC TARGET < 7.0ACTION SUGGESTED> 7.0 No Panel Informationon 04-16 Reference Lab Order Code See comment [facility] Comment on above: SEE SCANNED REPORT 25-Hydroxy Vitamin D Total 45.8 ng/mL [facility] Comment on above: <20 ng/mL Vit D defi cient20-<30 ng/mL Vit D ecgmynlxgyob41-953 ng/mL Vit D sufficient>100 ng/mL Potential Toxicity Miscellaneous Test COMMENT . [facility] Comment on above: Test Ordered: [id number] Nicotine and Metabolite, QuantNicotine <1.0 ng/mL Reference Range: .This test was developed and its performance characteristicsdetermined by [employer]. It has not been cleared orapproved by the Food and Drug Administration.Nicotine levels greater than 2.0 are consistent with theuse of tobacco or tobacco cessation products.Cotinine <1.0 ng/mL Reference Range: .This test was developed and its performance characteristicsdetermined by [employer]. It has not been cleared orapproved by the Food and Drug Administration.Cotinine levels greater than 20.0 are consistent with theuse of tobacco or tobacco cessation products.Performed at: - [address] [id number] Director: Felicitas Tony MD, Phone: [phone] at: [facility] [address] [id number] Director: Roque Alex PhD, Phone: [phone] XR hip LT min 2V(w/wo pelvis )*on 01-16-2024 XR hip LT min 2V(w/wo pelvis)* [facility] [address] [place] [address] XRay Report Signed Patient: Thiago Sabillon MR#: [id number] : 1950 Acct:[id number] Age/Sex: 73 / F ADM Date: 01/16/24 Loc: [facility] Room: Type: [facility] Attending Dr: Vernell Alvarez II, [...] Anmol Foley M.D.01/16/2024 3:57 PM Dictation Location: [place] [address] Transcribed By: [facility] 01/16/24 1557 Dictated By: Anmol Foley II, MD 01/16/24 1556 Signed By: 01/16/24 1557 Normal [facility] Basophils Auto (Bld) [#/Vol] on 01-07-2024 Basophils (Bld) [#/Vol] 0.0 10 3/uL 0.0-0.1 [facility] Basophils/100 WBC Auto (Bld) on 01-07-2024 Basophils/100 WBC (Bld) 0.7 % 0.2-2.0 [facility] Eosinophils/100 WBC Auto (Bl d)on 01-07-2024 Eosinophils/100 WBC (Bld) 2.1 % 0.9-7.0 [facility] Erythrocyte distribution wid th Auto (RBC) [Ratio]on 01-07-2024 Erythrocyte distribution width (RBC) [Ratio] 14.1 % 11.0-15.0 [facility] Estimated glomerular filtrat ion rate (GFR) non- Americanon 01-07-2024 GFR/1.73 sq M.predicted among non-blacks MDRD (S/P/Bld) [Vol rate/Area] mL/min/{1.73_m2} >=60 [facility] Globulin Calc (S) [Mass/Vol] on 01-07-2024 Globulin (S) [Mass/Vol] 3.3 g/dL [facility] Hematocrit Auto (Bld) [Volum e fraction]on 01-07-2024 Hematocrit (Bld) [Volume fraction] 39.9 % 36.0-48.0 [facility] Hemoglobin [Mass/volume] in Bloodon 01-07-2024 Hemoglobin (Bld) [Mass/Vol] 12.6 g/dL 12.0-16.0 [facility] Laboratory - Chemistry and C hemistry - challengeon 01-07-2024 Albumin [Mass/Vol] 3.4 g/dL 3.4-5.0 [facility] ALP [Catalytic activity/Vol] 75 U/L 46-116 [facility] ALT [Catalytic activity/Vol] 41 U/L 14-59 [facility] AST [Catalytic activity/Vol] 22 U/L 15-37 [facility] Bilirubin [Mass/Vol] 0.8 mg/dL 0.2-1.0 [facility] Calcium [Mass/Vol] 8.6 mg/dL 8.5-10.1 [facility] Chloride [Moles/Vol] 104 mmol/L 98-107 [facility] CO2 [Moles/Vol] 29.9 mmol/L 21.0-32.0 [facility] Creatinine [Mass/Vol] 0.62 mg/dL 0.55-1.02 [facility] GFR/1.73 sq M.predicted MDRD (S/P/Bld) [Vol rate/Area] mL/min/{1.73_m2} >=60 [facility] Glucose [Mass/Vol] 82 mg/dL 74-106 [facility] Magnesium [Mass/Vol] 2.1 mg/dL 1.8-2.4 [facility] Potassium [Moles/Vol] 4.1 mmol/L 3.5-5.1 [facility] Protein [Mass/Vol] 6.7 g/dL 6.4-8.2 [facility] Sodium [Moles/Vol] 140 mmol/L 136-145 [facility] Urea nitrogen [Mass/Vol] 21.0 mg/dL High 7.0-18.0 [facility] Urea nitrogen/Creatinine [Mass ratio] 33.9 mg/mg [facility] Laboratory - Hematology and Cell countson 01-07-2024 Immature granulocytes/100 WBC (Bld) 0.2 % 0.0-0.5 [facility] Leukocytes [#/volume] correc maryjane for nucleated erythrocytes in Blood by Automated counon 01-07-2024 WBC corrected for nucl RBC Auto (Bld) [#/Vol] 5.7 10 3/uL 4.0-11.0 [facility] Lymphocytes Auto (Bld) [#/Vo l]on 01-07-2024 Lymphocytes (Bld) [#/Vol] 2.3 10 3/uL 1.2-3.8 [facility] Lymphocytes/100 WBC Auto (Bl d)on 01-07-2024 Lymphocytes/100 WBC (Bld) 40.0 % 20.5-60.0 [facility] MCH Auto (RBC) [Entitic mass ]on 01-07-2024 MCH (RBC) [Entitic mass] 30.4 pg 26.7-34.0 [facility] MCHC Auto (RBC) [Mass/Vol]on 01-07-2024 MCHC (RBC) [Mass/Vol] 31.6 g/dL 29.9-35.2 [facility] MCV Auto (RBC) [Entitic vol] on 01-07-2024 MCV (RBC) [Entitic vol] 96.1 fL 81.0-99.0 [facility] Monocytes Auto (Bld) [#/Vol] on 01-07-2024 Monocytes (Bld) [#/Vol] 0.7 10 3/uL 0.3-0.8 [facility] Monocytes/100 WBC Auto (Bld) on 01-07-2024 Monocytes/100 WBC (Bld) 11.6 % 1.7-12.0 [facility] Neutrophils Auto (Bld) [#/Vo l]on 01-07-2024 Neutrophils (Bld) [#/Vol] 2.6 10 3/uL 1.4-6.5 [facility] Neutrophils/100 WBC Auto (Bl d)on 01-07-2024 Neutrophils/100 WBC (Bld) 45.4 % 43.0-75.0 [facility] No Panel Informationon 01-06 Eosinophils # (Auto) 0.1 10 3/uL 0.0-0.7 [facility] Immature Granulocyte # (Auto) 0.01 10 3/uL 0.00-0.03 [facility] Phosphorus Level 3.8 mg/dL 2.6-4.7 [facility] Platelet mean volume Auto (B ld) [Entitic vol]on 01-07-2024 Platelet mean volume (Bld) [Entitic vol] 9.7 fL 9.5-13.5 [facility] Platelets Auto (Bld) [#/Vol] on 01-07-2024 Platelets (Bld) [#/Vol] 244 10 3/uL 150-450 [facility] RBC Auto (Bld) [#/Vol]on RBC (Bld) [#/Vol] 4.15 10 6/uL Low 4.20-5.40 [facility] Serum or plasma albumin/glob ulin mass ratioon 01-07-2024 Albumin/Globulin [Mass ratio] 1.0 {ratio} [facility] Serum or plasma anion gap de terminationon 01-07-2024 Anion gap [Moles/Vol] 10.2 mmol/L [facility] XR Hip - right 3 [facility] Result: November 18, 2023 x-rays AP and lateral of the right hip demonstrate a Press-Fit hip replacement good position alignment without evidence of loosening fracture or failure Impression: Stable appearance of right hip replacement Kameron Barry D.O. [facility] Radiology Study observation (narrative) [facility] COVID/FLU/RSV RT-PCRon 10-03 SARS-CoV-2 (COVID-19) RNA GÓMEZ+probe Ql (Unsp spec) Positive Located Within [facility] Other COVID/FLU/RSV RT-PCR Negative [facility] Other Alanine aminotransferase [En zymatic activity/volume] in Serum or PlasmaOrdered By: Joshua Phipps on 08-19-2023 ALT [Catalytic activity/Vol] 20 U/L 7-52 [facility] Albumin [Mass/volume] in Ser um or Plasma by Bromocresol green (BCG) dye binding methoOrdered By: Joshua Phipps on 08-19-2023 Albumin BCG dye [Mass/Vol] 4.0 g/dL 3.5-5.7 [facility] Alkaline phosphatase [Enzyma tic activity/volume] in Serum or PlasmaOrdered By: Joshua Phipps on 08-19-2023 ALP [Catalytic activity/Vol] 88 U/L 34-104 [facility] Aspartate aminotransferase [ Enzymatic activity/volume] in Serum or PlasmaOrdered By: Joshua Phipps on 08-19-2023 AST [Catalytic activity/Vol] 16 U/L 13-39 [facility] Basophils Auto (Bld) [#/Vol] Ordered By: Joshua Phipps on 08-19-2023 Basophils (Bld) [#/Vol] 0.0 10*3/uL 0.0-0.2 [facility] Basophils/100 WBC Auto (Bld) Ordered By: Joshua Phipps on 08-19-2023 Basophils/100 WBC (Bld) 0.5 % . [facility] Bilirubin.total [Mass/volume ] in Serum or PlasmaOrdered By: Joshua Phipps on 08-19-2023 Bilirubin [Mass/Vol] 0.4 mg/dL 0.3-1.0 [facility] Calcium [Mass/volume] in Ser um or PlasmaOrdered By: Joshua Phipps on 08-19-2023 Calcium [Mass/Vol] 8.9 mg/dL 8.6-10.3 [facility] Carbon dioxide, total [Moles /volume] in Serum or PlasmaOrdered By: Joshua Phipps on 08-19-2023 CO2 [Moles/Vol] 32.0 mmol/L 21.0-31.0 [facility] Chloride [Moles/volume] in S moe or PlasmaOrdered By: Joshua Phipps on 08-19-2023 Chloride [Moles/Vol] 105 mmol/L 98-107 [facility] Creatinine [Mass/volume] in Serum or PlasmaOrdered By: Joshua Phipps on 08-19-2023 Creatinine [Mass/Vol] 0.53 mg/dL 0.60-1.20 [facility] Eosinophils Auto (Bld) [#/Vo l]Ordered By: Joshua Phipps on 08-19-2023 Eosinophils (Bld) [#/Vol] 0.1 10*3/uL 0.0-0.45 [facility] Eosinophils/100 WBC Auto (Bl d)Ordered By: Jsohua Phipps on 08-19-2023 Eosinophils/100 WBC (Bld) 1.7 % . [facility] Erythrocyte distribution wid th Auto (RBC) [Ratio]Ordered By: Joshua Phipps on 08-19-2023 Erythrocyte distribution width (RBC) [Ratio] 14.8 % 11.9-15.3 [facility] Globulin Calc (S) [Mass/Vol] Ordered By: Joshua Phipps on 08-19-2023 Globulin (S) [Mass/Vol] 2.4 g/dL [facility] Glucose [Mass/volume] in Ser um or PlasmaOrdered By: Joshua Phipps on 08-19-2023 Glucose [Mass/Vol] 94 mg/dL 70-100 [facility] Comment on above: ADA recommended refe rence rangeRandom Glucose Reference Range is dependent on time and content of last meal. Glucose of more than 200 mg/dL in a nonstressed, ambulatory subject supports the diagnosis of Diabetes Mellitus. Hematocrit Auto (Bld) [Volum e fraction]Ordered By: Joshua Phipps on 08-19-2023 Hematocrit (Bld) [Volume fraction] 38.1 % 34.0-46.4 [facility] Hemoglobin [Mass/volume] in BloodOrdered By: Joshua Phipps on 08-19-2023 Hemoglobin (Bld) [Mass/Vol] 12.4 g/dL 11.8-15.4 [facility] Leukocytes [#/volume] correc maryjane for nucleated erythrocytes in Blood by Automated counOrdered By: Joshua Phipps on 08-19-2023 WBC corrected for nucl RBC Auto (Bld) [#/Vol] 6.6 10*3/uL 3.8-11.6 [facility] Lymphocytes Auto (Bld) [#/Vo l]Ordered By: Joshua Phipps on 08-19-2023 Lymphocytes (Bld) [#/Vol] 1.5 10*3/uL 1.00-4.8 [facility] Lymphocytes/100 WBC Auto (Bl d)Ordered By: Joshua Phipps on 08-19-2023 Lymphocytes/100 WBC (Bld) 22.9 % . [facility] MCH Auto (RBC) [Entitic mass ]Ordered By: Joshua Phipps on 08-19-2023 MCH (RBC) [Entitic mass] 29.7 pg 24.7-34.3 [facility] MCHC Auto (RBC) [Mass/Vol]Or dered By: Joshua Phipps on 08-19-2023 MCHC (RBC) [Mass/Vol] 32.6 g/dL 32.0-35.0 [facility] MCV Auto (RBC) [Entitic vol] Ordered By: Joshua Phipps on 08-19-2023 MCV (RBC) [Entitic vol] 91.1 fL 80-100 [facility] Magnesium [Mass/volume] in S moe or PlasmaOrdered By: Joshua Phipps on 08-19-2023 Magnesium [Mass/Vol] 2.0 mg/dL 1.9-2.7 [facility] Monocytes Auto (Bld) [#/Vol] Ordered By: Joshua Phipps on 08-19-2023 Monocytes (Bld) [#/Vol] 0.5 10*3/uL 0.0-0.8 [facility] Monocytes/100 WBC Auto (Bld) Ordered By: Joshua Phipps on 08-19-2023 Monocytes/100 WBC (Bld) 8.3 % . [facility] Neutrophils Auto (Bld) [#/Vo l]Ordered By: Joshua Phipps on 08-19-2023 Neutrophils (Bld) [#/Vol] 4.4 10*3/uL 1.8-7.7 [facility] Neutrophils/100 WBC Auto (Bl d)Ordered By: Joshua Phipps on 08-19-2023 Neutrophils/100 WBC (Bld) 66.6 % . [facility] No Panel InformationOrdered By: Joshua Phipps on 08-19-2023 Estimated GFR (CKD-EPI) > 60.0 mL/Min [facility] Creatinine Clearance (Chem N/A [facility] Nucleated erythrocytes [Pres ence] in Blood by Automated countOrdered By: Joshua Phipps on 08-19-2023 Nucleated RBC Auto Ql (Bld) 0.1 /100{WBC} 0-0.5 [facility] Phosphate [Mass/volume] in S moe or PlasmaOrdered By: Joshua Phipps on 08-19-2023 Phosphate [Mass/Vol] 3.9 mg/dL 2.5-4.5 [facility] Platelet mean volume Auto (B ld) [Entitic vol]Ordered By: Joshua Phipps on 08-19-2023 Platelet mean volume (Bld) [Entitic vol] 8.3 fL 6.3-10.7 [facility] Platelets Auto (Bld) [#/Vol] Ordered By: Joshua Phipps on 08-19-2023 Platelets (Bld) [#/Vol] 275 10*3/uL 150-450 [facility] Potassium [Moles/volume] in Serum or PlasmaOrdered By: Joshua Phipps on 08-19-2023 Potassium [Moles/Vol] 4.2 mmol/L 3.5-5.1 [facility] Protein [Mass/volume] in Ser um or PlasmaOrdered By: Joshua Phipps on 08-19-2023 Protein [Mass/Vol] 6.4 g/dL 6.4-8.9 [facility] RBC Auto (Bld) [#/Vol]Ordere d By: Joshua Phipps on 08-19-2023 RBC (Bld) [#/Vol] 4.18 10*6/uL 3.60-5.00 [facility] Serum or plasma albumin/glob ulin mass ratioOrdered By: Joshua Phipps on 08-19-2023 Albumin/Globulin [Mass ratio] 1.7 {ratio} [facility] Serum or plasma anion gap de terminationOrdered By: Joshua Waggonerrow on 08-19-2023 Anion gap [Moles/Vol] 7.2 mmol/L 6.0-15.0 [facility] Sodium [Moles/volume] in Ser um or PlasmaOrdered By: Joshua Moise on 08-19-2023 Sodium [Moles/Vol] 140 mmol/L 136-145 [facility] Urea nitrogen [Mass/volume] in Serum or PlasmaOrdered By: Joshua Moise on 08-19-2023 Urea nitrogen [Mass/Vol] 21 mg/dL 7-25 [facility] WBC Auto (Bld) [#/Vol]Ordere d By: Joshua Waggonerrow on 08-19-2023 WBC (Bld) [#/Vol] 6.6 10*3/uL 3.8-11.6 [facility] Office Visiton 04-25-2023 Follow-up visit [id number] Thiago Sabillon 1950 F Date Provider Department Center 04/25/2023 3848-BRENNA BROUSSARD RENATO [facility] Family History Problem Relation Age of Onset Transient ischemic attack Father Family Status - Relation Status Age at Father Level of Service:49431 ME OFFICE/OUTPATIENT ESTABLISHED MOD MDM 30-39 MIN Normal [facility] PAP ACOG PANEL 2: 30 to 65on 09-22-2022 . . Normal [facility] Comment on above: Performed By: #### [id number] #### [facility] [address] [place] [address] Dr. Bree Scott Age Gdln ACOG Testing Comment Normal [facility] Comment on above: Result Comment: <21 or >65 or no age provided Performed By: #### [id number] #### [facility] [address] [place] [address] Dr. Bree Scott DIAGNOSIS: Comment Normal [facility] Comment on above: Result Comment: NEGA TIVE FOR INTRAEPITHELIAL LESION OR MALIGNANCY. CELLULAR CHANGES ASSOCIATED WITH ATROPHY ARE PRESENT. Performed By: #### [id number] #### [facility] [address] [place] [address] Dr. Bree Scott Methodology: Comment Normal [facility] Comment on above: Result Comment: This liquid based ThinPrep(R) pap test was screened with the use of an image guided system. Performed By: #### [id number] #### [facility] [address] [place] [address] Dr. Bree Scott Note: Comment Normal [facility] Comment on above: Result Comment: The Pap smear is a screening test designed to aid in the detection of premalignant and malignant conditions of the uterine cervix. It is not a diagnostic procedure and should not be used as the sole means of detecting cervical cancer. Both false-positive and false-negative reports do occur. . Performed By: #### [id number] #### [facility] [address] [place] [address] Dr. Bree Scott Performed by: Comment Normal [facility] Comment on above: Result Comment: Cherri Rodriguez, Portal Administrator (ASCP) Performed By: #### [id number] #### [facility] [address] [place] [address] Dr. Bree Scott Specimen adequacy: Comment Normal [facility] Comment on above: Result Comment: Sati sfactory for evaluation. Endocervical component may not be distinguished in cases of atrophy. Performed By: #### 4 [id number] #### [facility] [address] [place] [address] Dr. Bree Scott CREATININEon 06-12-2022 Creatinine [Mass/Vol] 0.67 mg/dL Normal 0.55-1.02 [facility] Comment on above: Performed By: #### C HAYLEY #### [facility] [address] [place] [address] Dr. Bree Scott EGFR-AF NICARAGUAN >60 Normal >=60 [facility] Comment on above: Performed By: #### C HAYLEY #### [facility] [address] [place], [place] [address] Dr. Bree Scott EGFR-NON AF NICARAGUAN >60 Normal >=60 [facility] Comment on above: Performed By: #### C HAYLEY #### [facility] [address] [place], [place] [address] Dr. Bree Scott CTA ABD/PELVIS WO W [...] JACK SABILLON Date: 2022-06-12 21:49 Normal [facility] US EXT NON VASC LIMITED RTon 05-21-2022 [...] JACK SABILLON Date: 2022-05-21 10:04 Normal [facility] CBC AUTO DIFFon 04-24-2022 BASO # 0.0 103/ul Normal 0.0-0.1 [facility] Comment on above: Performed By: #### C BC #### [facility] [address] [place] [address] Dr. Bree Scott Basophils/100 WBC (Bld) 0.6 % Normal 0.2-2.0 [facility] Comment on above: Performed By: #### C BC #### [facility] [address] [place] [address] Dr. Bree Scott EO # 0.2 103/ul Normal 0.0-0.7 [facility] Comment on above: Performed By: #### C BC #### [facility] [address] [place] [address] Dr. Bree Scott Eosinophils/100 WBC (Bld) 2.6 % Normal 0.9-7.0 [facility] Comment on above: Performed By: #### C BC #### [facility] [address] [place] [address] Dr. Bree Scott Erythrocyte distribution width (RBC) [Ratio] 13.3 % Normal 11.0-15.0 [facility] Comment on above: Performed By: #### C BC #### [facility] [address] [place] [address] Dr. Bree Scott Hematocrit (Bld) [Volume fraction] 40.5 % Normal 36.0-48.0 [facility] Comment on above: Performed By: #### C BC #### [facility] [address] [place] [address] Dr. Bree Scott Hemoglobin (Bld) [Mass/Vol] 13.1 g/dL Normal 12.0-16.0 [facility] Comment on above: Performed By: #### C BC #### [facility] [address] [place] [address] Dr. Bree Scott IG # 0.01 10e3/ul Normal 0.00-0.03 [facility] Comment on above: Performed By: #### C BC #### [facility] [address] [place] [address] Dr. Bree Scott IG % 0.2 % Normal 0.0-0.5 [facility] Comment on above: Performed By: #### C BC #### [facility] [address] [place] [address] Dr. Bree Scott LYMPH # 2.1 103/ul Normal 1.2-3.8 [facility] Comment on above: Performed By: #### C BC #### [facility] [address] [place] [address] Dr. Bree Scott Lymphocytes/100 WBC (Bld) 31.8 % Normal 20.5-60.0 [facility] Comment on above: Performed By: #### C BC #### [facility] [address] [place] [address] Dr. Bree Scott MANUAL DIFF REQ NO Normal [facility] Comment on above: Performed By: #### C BC #### [facility] [address] [place] [address] Dr. Bree Scott MCH (RBC) [Entitic mass] 30.5 pg Normal 26.7-34.0 [facility] Comment on above: Performed By: #### C BC #### [facility] [address] [place] [address] Dr. Bree Scott MCHC (RBC) [Mass/Vol] 32.3 g/dL Normal 29.9-35.2 [facility] Comment on above: Performed By: #### C BC #### [facility] [address] [place] [address] [address] Bree Scott MCV (RBC) [Entitic vol] 94.4 fL Normal 81.0-99.0 [facility] Comment on above: Performed By: #### C BC #### [facility] [address] [place] [address] [address] Bree Scott MONO # 0.6 103/ul Normal 0.3-0.8 [facility] Comment on above: Performed By: #### C BC #### [facility] [address] [place] [address] [address] Bree Scott Monocytes/100 WBC (Bld) 9.9 % Normal 1.7-12.0 [facility] Comment on above: Performed By: #### C BC #### [facility] [address] [place] [address] Dr. Bree Scott NEUT # 3.5 103/ul Normal 1.4-6.5 [facility] Comment on above: Performed By: #### C BC #### [facility] [address] [place] [address] Dr. Bree Scott Neutrophils/100 WBC (Bld) 54.9 % Normal 43.0-75.0 [facility] Comment on above: Performed By: #### C BC #### [facility] [address] [place] [address] Dr. Bree Scott Platelet mean volume (Bld) [Entitic vol] 9.2 fL Critically low 9.5-13.5 [facility] Comment on above: Performed By: #### C BC #### [facility] [address] [place] [address] Dr. Bree Scott PLT 243 103/ul Normal 150-450 [facility] Comment on above: Performed By: #### C BC #### [facility] [address] [place] [address] Dr. Bree Scott RBC 4.29 106/ul Normal 4.20-5.40 [facility] Comment on above: Performed By: #### C BC #### [facility] [address] [place], [place] [address] Dr. Bree Scott WBC 6.4 103/ul Normal 4.0-11.0 [facility] Comment on above: Performed By: #### C #### [facility] [address] [place], [place] [address] Dr. Bree Scott ECHOCARDIO M/2D COMPLETEon 0 04-24-2022 ECHOCARDIO M/2D COMPLETE Patient: THIAGO SABILLON Exam Date: 04/24/2022 : 1950 Gender:F Ordering : LISA PeraltaAntonio ANGELITO Admission #: [id number] Family : DR KALLIE CHASE M.D. Order #: [id number] CLICK HERE TO VIEW EXAM ECHOCARDIOGRAM REPORT [...] Jane M.D. on 04/24/2022 at 16:45 Normal [facility] LIPID PROFILEon 04-24-2022 CHOL-HDL RATIO NORM SEE BELOW Normal [facility] Comment on above: Result Comment: 3.3 - 4.4 LOW RISK 4.4 - 7.1 AVERAGE RISK 7.1 - 11.0 MODERATE RISK >11.0 HIGH RISK Performed By: #### C MP, LIPID #### [facility] [address] [address] [address] Bree Scott Cholesterol [Mass/Vol] 136 mg/dL Normal <=200 [facility] Comment on above: Performed By: #### C MP, LIPID #### [facility] [address] [address] [address] Bree Scott Cholesterol in HDL [Mass/Vol] 64 mg/dL Critically high 40-60 [facility] Comment on above: Performed By: #### C MP, LIPID #### [facility] [address] [address] [address] Bree Scott Cholesterol in LDL [Mass/Vol] 63.8 mg/dL Normal [facility] Comment on above: Performed By: #### C MP, LIPID #### [facility] [address] [address] [address] Bree Scott Cholesterol.total/Cho lesterol in HDL [Mass ratio] 2.1 {ratio} Normal [facility] Comment on above: Performed By: #### C MP, LIPID #### [facility] [address] [address] [address] Bree Scott HDL NORMAL > or = 60 mg/dl - LO W CARDIOVASCULAR RISK <40 mg/dl - HIGH CARDIOVASCULAR RISK Normal [facility] Comment on above: Performed By: #### C MP, LIPID #### [facility] [address] [address] [address] Bree Scott LDL CALC NORMAL SEE BELOW Normal [facility] Comment on above: Result Comment: <100 mg/dl OPTIMAL 100 - 129 mg/dl NEAR OR ABOVE OPTIMAL 130 - 159 mg/dl BORDERLINE HIGH 160 - 189 mg/dl HIGH >190 mg/dl VERY HIGH Performed By: #### C MP, LIPID #### [facility] [address] [address] [address] Bree Scott Triglyceride [Mass/Vol] 41 mg/dL Normal <=150 [facility] Comment on above: Performed By: #### C MP, LIPID #### [facility] [address] [address] [address] Bree Scott VLDL CALC 8.2 mg/dL Normal [facility] Comment on above: Performed By: #### C MP, LIPID #### [facility] [address] [address] [address] Bree Scott PROF 14(COMP METB)on 022 Albumin [Mass/Vol] 3.4 g/dL Normal 3.4-5.0 [facility] Comment on above: Performed By: #### C MP, LIPID #### [facility] [address] [address] [address] Bree Scott Albumin/Globulin [Mass ratio] 1.2 {ratio} Normal [facility] Comment on above: Performed By: #### C MP, LIPID #### [facility] [address] [address] [address] Bree Scott ALP [Catalytic activity/Vol] 72 U/L Normal 46-116 [facility] Comment on above: Performed By: #### C MP, LIPID #### [facility] [address] [address] [address] Bree Scott ALT [Catalytic activity/Vol] 45 U/L Normal 14-59 [facility] Comment on above: Performed By: #### C MP, LIPID #### [facility] [address] [address] [address] Bree Scott Anion gap [Moles/Vol] 9.1 mmol/L Normal [facility] Comment on above: Performed By: #### C MP, LIPID #### [facility] [address] [address] [address] Bree Scott AST [Catalytic activity/Vol] 22 U/L Normal 15-37 [facility] Comment on above: Performed By: #### C MP, LIPID #### [facility] [address] [place] [address] Dr. Bree Scott Bilirubin [Mass/Vol] 0.6 mg/dL Normal 0.2-1.0 [facility] Comment on above: Performed By: #### C MP, LIPID #### [facility] [address] [address] [address] Bree Scott Calcium [Mass/Vol] 8.6 mg/dL Normal 8.5-10.1 [facility] Comment on above: Performed By: #### C MP, LIPID #### [facility] [address] [address] [address] Bree Scott Chloride [Moles/Vol] 106 mmol/L Normal 98-107 [facility] Comment on above: Performed By: #### C MP, LIPID #### [facility] [address] [address] [address] Bree Scott CO2 [Moles/Vol] 31.4 mmol/L Normal 21.0-32.0 [facility] Comment on above: Performed By: #### C MP, LIPID #### [facility] [address] [address] [address] Bree Scott Creatinine [Mass/Vol] 0.60 mg/dL Normal 0.55-1.02 [facility] Comment on above: Performed By: #### C MP, LIPID #### [facility] [address] [address] [address] Bree Scott EGFR-AF NICARAGUAN >60 Normal >=60 [facility] Comment on above: Performed By: #### C MP, LIPID #### [facility] [address] [address] [address] Bree Scott EGFR-NON AF NICARAGUAN >60 Normal >=60 [facility] Comment on above: Performed By: #### C MP, LIPID #### [facility] [address] [place] [address] Dr. Bree Scott Globulin (S) [Mass/Vol] 2.9 g/dL Normal [facility] Comment on above: Performed By: #### C MP, LIPID #### [facility] [address] [place] [address] Dr. Bree Scott Glucose [Mass/Vol] 95 mg/dL Normal 74-106 [facility] Comment on above: Performed By: #### C MP, LIPID #### [facility] [address] [place] [address] Dr. Bree Scott Potassium [Moles/Vol] 4.5 mmol/L Normal 3.5-5.1 [facility] Comment on above: Performed By: #### C MP, LIPID #### [facility] [address] [place] [address] Dr. Bree Scott Protein [Mass/Vol] 6.3 g/dL Critically low 6.4-8.2 [facility] Comment on above: Performed By: #### C MP, LIPID #### [facility] [address] [place] [address] Dr. Bree Scott Sodium [Moles/Vol] 142 mmol/L Normal 136-145 [facility] Comment on above: Performed By: #### C MP, LIPID #### [facility] [address] [address] [address] Bree Scott Urea nitrogen [Mass/Vol] 28.0 mg/dL Critically high 7.0-18.0 [facility] Comment on above: Performed By: #### C MP, LIPID #### [facility] [address] [address] [address] Bree Scott Urea nitrogen/Creatinine [Mass ratio] 46.7 mg/mg Normal [facility] Comment on above: Performed By: #### C MP, LIPID #### [facility] [address] [address] [address] Bree Scott BASIC METABOLIC PANELon - Calcium [Mass/Vol] 8.9 mg/dL Normal 8.6-10.3 [facility] Comment on above: Order Comment: evalu ate Atelectasis Performed By: #### 0 0071, [id number] ####[facility] [facility] [place] [address], [facility] Chloride [Moles/Vol] 99 mmol/L Normal 98-107 [facility] Comment on above: Order Comment: evalu ate Atelectasis Performed By: #### 0 0071, [id number] ####[facility] [address], [facility] CO2 [Moles/Vol] 30 mmol/L Normal 21-31 [facility] Comment on above: Order Comment: evalu ate Atelectasis Performed By: #### 0 0071, 36441 ####[facility] [place] [address], [facility] Creatinine [Mass/Vol] 0.51 mg/dL Low 0.60-1.20 [facility] Comment on above: Order Comment: evalu ate Atelectasis Performed By: #### 0 0071, 14446 ####[facility] [place] [address], [place] GFR/1.73 sq M.predicted among blacks MDRD (S/P/Bld) [Vol rate/Area] mL/min/{1.73_m2} Normal >60 [facility] Comment on above: Order Comment: evalu ate Atelectasis Performed By: #### 0 0071, 86045 ####[facility] [place] [address], [facility] GFR/1.73 sq M.predicted among non-blacks MDRD (S/P/Bld) [Vol rate/Area] mL/min/{1.73_m2} Normal >60 [facility] Comment on above: Order Comment: evalu ate Atelectasis Performed By: #### 0 0071, 15028 ####[facility] [place] [address], [facility] Glucose [Mass/Vol] 82 mg/dL Normal 70-100 [facility] Comment on above: Order Comment: evalu ate Atelectasis Performed By: #### 0 0071, 83803 ####[facility] [place] [address], [facility] Potassium [Moles/Vol] 4.0 mmol/L Normal 3.5-5.1 [facility] Comment on above: Order Comment: evalu ate Atelectasis Performed By: #### 0 0071, 00723 ####[facility] [place] [address], [facility] Sodium [Moles/Vol] 135 mmol/L Low 136-145 [facility] Comment on above: Order Comment: evalu ate Atelectasis Performed By: #### 0 0071, 26225 ####[facility] [place] [address], [place] Urea nitrogen [Mass/Vol] 17 mg/dL Normal 7-25 [facility] Comment on above: Order Comment: evalu ate Atelectasis Performed By: #### 0 0071, 58728 ####[facility] [place] [address], [facility] CBC COMPLETE BLOOD COUNTon 0 03-27-2021 Erythrocyte distribution width (RBC) [Ratio] 13.2 % Normal 11.5-15.0 [facility] Comment on above: Order Comment: No: D o not add to previous draw Performed By: #### 8 [id number] #### [facility] [address] [place] [address], [facility] Hematocrit (Bld) [Volume fraction] 33.1 % Low 36.0-45.0 [facility] Comment on above: Order Comment: No: D o not add to previous draw Performed By: #### 8 [id number] #### [facility] [address] [place] [address], [facility] Hemoglobin (Bld) [Mass/Vol] 10.4 g/dL Low 12.0-15.0 [facility] Comment on above: Order Comment: No: D o not add to previous draw Performed By: #### 8 [id number] #### [facility] [address] [place] [address], [facility] MCH (RBC) [Entitic mass] 30.1 pg Normal 27.0-33.0 [facility] Comment on above: Order Comment: No: D o not add to previous draw Performed By: #### 8 [id number] #### [facility] [address] [place] [address], [facility] MCHC (RBC) [Mass/Vol] 31.4 g/dL Low 32.0-35.0 [facility] Comment on above: Order Comment: No: D o not add to previous draw Performed By: #### 8 [id number] #### [facility] [address] [place] [address], [place] MCV (RBC) [Entitic vol] 95.9 fL Normal 82.0-98.0 [facility] Comment on above: Order Comment: No: D o not add to previous draw Performed By: #### 8 [id number] #### [facility] [address] [place] [address], [place] Nucleated RBC/100 WBC (Bld) [Ratio] 0 % Normal 0-0 [facility] Comment on above: Order Comment: No: D o not add to previous draw Performed By: #### 8 [id number] #### [facility] [address] [place] [address], [place] PLAT CNT 303 10*3/uL Normal 150-400 [facility] Comment on above: Order Comment: No: D o not add to previous draw Performed By: #### 8 [id number] #### [facility] [address] [place] [address], [facility] RBC (Bld) [#/Vol] 3.45 10*6/uL Low 3.80-5.00 [facility] Comment on above: Order Comment: No: D o not add to previous draw Performed By: #### 8 [id number] #### [facility] [address] [place] [address], [place] WBC (Bld) [#/Vol] 8.08 10*3/uL Normal 4.00-10.60 [facility] Comment on above: Order Comment: No: D o not add to previous draw Performed By: #### 8 [id number] #### [facility] [address] [place] [address], [facility] MAGNESIUM BLOODon 03-27-2021 Magnesium [Mass/Vol] 1.9 mg/dL Normal 1.9-2.7 [facility] Comment on above: Order Comment: evalu ate Atelectasis Performed By: #### 0 0071, 03607 ####[facility] [place] [address], [place] POC GLUCOSE LABon 03-27-2021 Glucose [Mass/Vol] 87 mg/dL Normal 70-100 [facility] Comment on above: Performed By: #### 3 1595 #### [facility] [address] [place] [address], [place] Glucose [Mass/Vol] 110 mg/dL High 70-100 [facility] Comment on above: Performed By: #### 8 [id number] #### [facility] [address] [place] [address], [facility] Glucose [Mass/Vol] 114 mg/dL High 70-100 [facility] Comment on above: Performed By: #### 8 [id number] #### [facility] [address] [place] [address], [facility] PORTABLE CHEST 1 VIEWon 03-07 PORTABLE CHEST 1 VIEW [facility] [place] Department of Radiology [address] [place] [address] Patient Name: THIAGO SABILLON : 1950 Sex: F Age: Race: White Pt. Location: [address] [place] [address] Patient Status: I Ordered Date: 03/27/2021 5:00:00 [...] persist. Electronically signed: Vernell Mcclure. Transcribed by: [email or web address], User Resident: Electronically Signed by: VERNELL MCCLURE @ 03/27/2021 07:43 AM Normal [facility] Comment on above: Order Comment: evalu ate Atelectasis BASIC METABOLIC PANELon 06- Calcium [Mass/Vol] 8.3 mg/dL Low 8.6-10.3 [facility] Comment on above: Order Comment: evalu ate Atelectasis Performed By: #### 0 0071, 70041 ####[facility] [place] [address], [facility] Chloride [Moles/Vol] 102 mmol/L Normal 98-107 [facility] Comment on above: Order Comment: evalu ate Atelectasis Performed By: #### 0 0071, 16694 ####[facility] [place] [address], [facility] CO2 [Moles/Vol] 31 mmol/L Normal 21-31 [facility] Comment on above: Order Comment: evalu ate Atelectasis Performed By: #### 0 0071, 48085 ####[facility] [place] [address], [facility] Creatinine [Mass/Vol] 0.50 mg/dL Low 0.60-1.20 [facility] Comment on above: Order Comment: evalu ate Atelectasis Performed By: #### 0 0071, 89518 ####[facility] [place] [address], [facility] GFR/1.73 sq M.predicted among blacks MDRD (S/P/Bld) [Vol rate/Area] mL/min/{1.73_m2} Normal >60 [facility] Comment on above: Order Comment: evalu ate Atelectasis Performed By: #### 0 0071, 56395 ####[facility] [place] [address], [facility] GFR/1.73 sq M.predicted among non-blacks MDRD (S/P/Bld) [Vol rate/Area] mL/min/{1.73_m2} Normal >60 [facility] Comment on above: Order Comment: evalu ate Atelectasis Performed By: #### 0 0071, 38371 ####[facility] [place] [address], [facility] Glucose [Mass/Vol] 125 mg/dL High 70-100 [facility] Comment on above: Order Comment: evalu ate Atelectasis Performed By: #### 0 0071, 37725 ####[facility] [place] [address], [facility] Potassium [Moles/Vol] 4.1 mmol/L Normal 3.5-5.1 [facility] Comment on above: Order Comment: evalu ate Atelectasis Performed By: #### 0 0071, 20007 ####[facility] [place] [address], [facility] Sodium [Moles/Vol] 138 mmol/L Normal 136-145 [facility] Comment on above: Order Comment: evalu ate Atelectasis Performed By: #### 0 0071, 87282 ####[facility] [place] [address], [facility] Urea nitrogen [Mass/Vol] 18 mg/dL Normal 7-25 [facility] Comment on above: Order Comment: evalu ate Atelectasis Performed By: #### 0 0071, 74663 ####[facility] [place] [address], [facility] CBC COMPLETE BLOOD COUNTon 0 - Erythrocyte distribution width (RBC) [Ratio] 13.4 % Normal 11.5-15.0 [facility] Comment on above: Order Comment: No: D o not add to previous drawNurse draw Performed By: #### 8 [id number] #### [facility] [address] [place] [address], [facility] Hematocrit (Bld) [Volume fraction] 29.3 % Low 36.0-45.0 [facility] Comment on above: Order Comment: No: D o not add to previous drawNurse draw Performed By: #### 8 [id number] #### [facility] [address] [place] [address], [facility] Hemoglobin (Bld) [Mass/Vol] 9.2 g/dL Low 12.0-15.0 [facility] Comment on above: Order Comment: No: D o not add to previous drawNurse draw Performed By: #### 8 [id number] #### [facility] [address] [place] [address], [facility] MCH (RBC) [Entitic mass] 30.4 pg Normal 27.0-33.0 [facility] Comment on above: Order Comment: No: D o not add to previous drawNurse draw Performed By: #### 8 [id number] #### [facility] [address] [place] [address], [facility] MCHC (RBC) [Mass/Vol] 31.4 g/dL Low 32.0-35.0 [facility] Comment on above: Order Comment: No: D o not add to previous drawNurse draw Performed By: #### 8 [id number] #### [facility] [address] [place] [address], [facility] MCV (RBC) [Entitic vol] 96.7 fL Normal 82.0-98.0 [facility] Comment on above: Order Comment: No: D o not add to previous drawNurse draw Performed By: #### 8 [id number] #### [facility] [address] [place] [address], [facility] Nucleated RBC/100 WBC (Bld) [Ratio] 0 % Normal 0-0 [facility] Comment on above: Order Comment: No: D o not add to previous drawNurse draw Performed By: #### 8 [id number] #### [facility] [address] [place] [address], [place] PLAT CNT 223 10*3/uL Normal 150-400 [facility] Comment on above: Order Comment: No: D o not add to previous drawNurse draw Performed By: #### 8 [id number] #### [facility] [address] [place] [address], [facility] RBC (Bld) [#/Vol] 3.03 10*6/uL Low 3.80-5.00 [facility] Comment on above: Order Comment: No: D o not add to previous drawNurse draw Performed By: #### 8 [id number] #### [facility] [address] [place] [address], [facility] WBC (Bld) [#/Vol] 7.67 10*3/uL Normal 4.00-10.60 [facility] Comment on above: Order Comment: No: D o not add to previous drawNurse draw Performed By: #### 8 [id number] #### [facility] [address] [place] [address], [facility] MAGNESIUM BLOODon 03-26-2021 Magnesium [Mass/Vol] 1.9 mg/dL Normal 1.9-2.7 [facility] Comment on above: Order Comment: evalu ate Atelectasis Performed By: #### 0 0071, 15466 ####[facility] [place] [address], [facility] POC GLUCOSE LABon 03-26-2021 Glucose [Mass/Vol] 81 mg/dL Normal 70-100 [facility] Comment on above: Performed By: #### 3 1595 #### [facility] [address] [place] [address], [place] Glucose [Mass/Vol] 286 mg/dL High 70-100 [facility] Comment on above: Performed By: #### 8 [id number] #### [facility] [address] [place] [address], [facility] Glucose [Mass/Vol] 164 mg/dL High 70-100 [facility] Comment on above: Performed By: #### 5 0608 #### [facility] [address] [place], [place] [id number] [place] [address] PORTABLE CHEST 1 VIEWon 03-07 PORTABLE CHEST 1 VIEW [facility] [place] Department of Radiology [address] [place] [id number] Patient Name: THIAGO SABILLON : 1950 Sex: F Age: Race: White Pt. Location: [place] [address] Patient Status: I Ordered Date: 03/26/2021 5:00:00 [...] lung. Electronically signed: Vernell Mcclure. Transcribed by: [email or web address], User Resident: Electronically Signed by: VERNELL MCCLURE @ 03/26/2021 06:40 AM Normal [facility] Comment on above: Order Comment: The A ptima SARS-CoV-2 assay is a nucleic acid amplification test intended for the qualitative detection of RNA from SARS-CoV-2 isolated and purified from nasopharyngeal ([employer]),oropharyngeal (OP), nasal swab, sputum, and bronchoalveolar lavage (BAL) specimens from patients with signs and symptoms of infection who are suspected of COVID-19. Results are for the identification of SARS-CoV-2 RNA. The SARS-CoV-2 RNA is generally detectable during the acute phase of infection. The Aptima SARS-CoV-2 Assay on the [employer] and [employer] system is intended for use by laboratory personnel specifically instructed and trained in the operation of the [employer] system. The Aptima SARS-CoV-2 assay is [...] and epidemiological information. BASIC METABOLIC PANELon 06-2 Calcium [Mass/Vol] 8.3 mg/dL Low 8.6-10.3 [facility] Comment on above: Order Comment: No: D o not add to previous draw Performed By: #### 3 8465 #### [facility] [address] [place] [address], [facility] Chloride [Moles/Vol] 99 mmol/L Normal 98-107 [facility] Comment on above: Order Comment: No: D o not add to previous draw Performed By: #### 3 0965 #### [facility] [address] [place] [address], [place] CO2 [Moles/Vol] 29 mmol/L Normal 21-31 [facility] Comment on above: Order Comment: No: D o not add to previous draw Performed By: #### 3 0965 #### [facility] [address] [place] [address], [place] Creatinine [Mass/Vol] 0.53 mg/dL Low 0.60-1.20 [facility] Comment on above: Order Comment: No: D o not add to previous draw Performed By: #### 3 0965 #### [facility] [address] [place] [address], [place] GFR/1.73 sq M.predicted among blacks MDRD (S/P/Bld) [Vol rate/Area] mL/min/{1.73_m2} Normal >60 [facility] Comment on above: Order Comment: No: D o not add to previous draw Performed By: #### 3 0965 #### [facility] [address] [place] [address], [place] GFR/1.73 sq M.predicted among non-blacks MDRD (S/P/Bld) [Vol rate/Area] mL/min/{1.73_m2} Normal >60 [facility] Comment on above: Order Comment: No: D o not add to previous draw Performed By: #### 3 0965 #### [facility] [address] [place] [address], [place] Glucose [Mass/Vol] 104 mg/dL High 70-100 [facility] Comment on above: Order Comment: No: D o not add to previous draw Performed By: #### 3 0965 #### [facility] [address] [place] [address], [place] Potassium [Moles/Vol] 4.1 mmol/L Normal 3.5-5.1 [facility] Comment on above: Order Comment: No: D o not add to previous draw Performed By: #### 3 0965 #### [facility] [address] [place] [address], [facility] Sodium [Moles/Vol] 134 mmol/L Low 136-145 [facility] Comment on above: Order Comment: No: D o not add to previous draw Performed By: #### 3 0965 #### [facility] [address] [place] [address], [facility] Urea nitrogen [Mass/Vol] 21 mg/dL Normal 7-25 [facility] Comment on above: Order Comment: No: D o not add to previous draw Performed By: #### 3 0965 #### [facility] [address] [place] [address], [facility] CBC COMPLETE BLOOD COUNTon 0 03-25-2021 Erythrocyte distribution width (RBC) [Ratio] 13.4 % Normal 11.5-15.0 [facility] Comment on above: Order Comment: No: D o not add to previous draw Performed By: #### 8 [id number] #### [facility] [address] [place] [address], [facility] Hematocrit (Bld) [Volume fraction] 28.4 % Low 36.0-45.0 [facility] Comment on above: Order Comment: No: D o not add to previous draw Performed By: #### 8 [id number] #### [facility] [address] [place] [address], [facility] Hemoglobin (Bld) [Mass/Vol] 9.4 g/dL Low 12.0-15.0 [facility] Comment on above: Order Comment: No: D o not add to previous draw Performed By: #### 8 [id number] #### [facility] [address] [place] [address], [facility] MCH (RBC) [Entitic mass] 31.0 pg Normal 27.0-33.0 [facility] Comment on above: Order Comment: No: D o not add to previous draw Performed By: #### 8 [id number] #### [facility] [address] [place] [address], [facility] MCHC (RBC) [Mass/Vol] 33.1 g/dL Normal 32.0-35.0 [facility] Comment on above: Order Comment: No: D o not add to previous draw Performed By: #### 8 [id number] #### [facility] [address] [place] [address], [facility] MCV (RBC) [Entitic vol] 93.7 fL Normal 82.0-98.0 [facility] Comment on above: Order Comment: No: D o not add to previous draw Performed By: #### 8 [id number] #### [facility] [address] [place] [address], [facility] Nucleated RBC/100 WBC (Bld) [Ratio] 0 % Normal 0-0 [facility] Comment on above: Order Comment: No: D o not add to previous draw Performed By: #### 8 [id number] #### [facility] [address] [address], [facility] PLAT CNT 191 10*3/uL Normal 150-400 [facility] Comment on above: Order Comment: No: D o not add to previous draw Performed By: #### 8 [id number] #### [facility] [address] [address], [facility] RBC (Bld) [#/Vol] 3.03 10*6/uL Low 3.80-5.00 [facility] Comment on above: Order Comment: No: D o not add to previous draw Performed By: #### 8 [id number] #### [facility] [address] [place] [address], [facility] WBC (Bld) [#/Vol] 9.57 10*3/uL Normal 4.00-10.60 [facility] Comment on above: Order Comment: No: D o not add to previous draw Performed By: #### 8 [id number] #### [facility] [address] [place] [address], [facility] MAGNESIUM BLOODon 03-25-2021 Magnesium [Mass/Vol] 2.2 mg/dL Normal 1.9-2.7 [facility] Comment on above: Order Comment: No: D o not add to previous draw Performed By: #### 3 0965 #### [facility] [address] [place] [address], [facility] PHOSPHORUS BLOODon Phosphate [Mass/Vol] 2.6 mg/dL Normal 2.5-5.0 [facility] Comment on above: Order Comment: No: D o not add to previous draw Performed By: #### 3 0965 #### [facility] [address] [facility] [place] [address], [facility] POC GLUCOSE LABon 03-25-2021 Glucose [Mass/Vol] 129 mg/dL High 70-100 [facility] Comment on above: Performed By: #### 8 [id number] #### [facility] [address] [facility] [place] [address], [facility] Glucose [Mass/Vol] 129 mg/dL High 70-100 [facility] Comment on above: Performed By: #### 5 0608 #### [facility] [address] [facility] [place] [address], [facility] PORTABLE CHEST 1 VIEWon 03-07 PORTABLE CHEST 1 VIEW [facility] Department of Radiology [address] [place] [address] Patient Name: THIAGO SABILLON : 1950 Sex: F Age: Race: White Pt. Location: [place] [address] Patient Status: I Ordered Date: 03/25/2021 5:00:00 [...] effusion Electronically signed: Zina Brenner. Transcribed by: [email or web address], User Resident: Electronically Signed by: ZINA BRENNER @ 03/25/2021 08:07 AM Normal [facility] Comment on above: Order Comment: evalu ate for Pneumothorax TSH3 WITH REFLEX FT4on 03-25 TSH 3RD GENERATION 1.06 uIU/mL Normal 0.34-5.60 [facility] Comment on above: Order Comment: No: D o not add to previous draw Performed By: #### 3 0965 #### [facility] [address] [place] [id number], [place] BASIC METABOLIC PANELon 06-1 Calcium [Mass/Vol] 8.5 mg/dL Low 8.6-10.3 [facility] Comment on above: Order Comment: evalu ate Atelectasis Performed By: #### 1 69, [id number] ####[facility] [place] [address], [place] Chloride [Moles/Vol] 100 mmol/L Normal 98-107 [facility] Comment on above: Order Comment: evalu ate Atelectasis Performed By: #### 1 69, 01665 ####[facility] [id number], [place] CO2 [Moles/Vol] 27 mmol/L Normal 21-31 [facility] Comment on above: Order Comment: evalu ate Atelectasis Performed By: #### 1 69, 89906 ####[facility] [place] [address], [place] Creatinine [Mass/Vol] 0.70 mg/dL Normal 0.60-1.20 [facility] Comment on above: Order Comment: evalu ate Atelectasis Performed By: #### 1 69, 19948 ####[facility] [id number], [place] GFR/1.73 sq M.predicted among blacks MDRD (S/P/Bld) [Vol rate/Area] mL/min/{1.73_m2} Normal >60 [facility] Comment on above: Order Comment: evalu ate Atelectasis Performed By: #### 1 69, 72373 ####[facility] [place] [address], [place] GFR/1.73 sq M.predicted among non-blacks MDRD (S/P/Bld) [Vol rate/Area] mL/min/{1.73_m2} Normal >60 [facility] Comment on above: Order Comment: evalu ate Atelectasis Performed By: #### 1 69, 38609 ####[facility] [place] [address], [facility] Glucose [Mass/Vol] 122 mg/dL High 70-100 [facility] Comment on above: Order Comment: evalu ate Atelectasis Performed By: #### 1 69, 38309 ####[facility] [place] [address], [facility] Potassium [Moles/Vol] 4.7 mmol/L Normal 3.5-5.1 [facility] Comment on above: Order Comment: evalu ate Atelectasis Performed By: #### 1 69, 29492 ####[facility] [place] [address], [facility] Sodium [Moles/Vol] 133 mmol/L Low 136-145 [facility] Comment on above: Order Comment: evalu ate Atelectasis Performed By: #### 1 69, 63726 ####[facility] [facility].[address] Urea nitrogen [Mass/Vol] 30 mg/dL High 7-25 [facility] Comment on above: Order Comment: evalu ate Atelectasis Performed By: #### 1 69, 14558 ####[facility] [facility].[address] CBC COMPLETE BLOOD COUNTon 0 - Erythrocyte distribution width (RBC) [Ratio] 13.5 % Normal 11.5-15.0 [facility] Comment on above: Order Comment: No: D o not add to previous draw Nurse draw Performed By: #### 5 0608 #### [facility] [address] [place] [address], [facility] Hematocrit (Bld) [Volume fraction] 30.7 % Low 36.0-45.0 [facility] Comment on above: Order Comment: No: D o not add to previous draw Nurse draw Performed By: #### 5 0608 #### [facility] [address] [place] [address], [facility] Hemoglobin (Bld) [Mass/Vol] 10.0 g/dL Low 12.0-15.0 [facility] Comment on above: Order Comment: No: D o not add to previous draw Nurse draw Performed By: #### 5 0608 #### [facility] [address] [place] [address], [facility] MCH (RBC) [Entitic mass] 30.7 pg Normal 27.0-33.0 [facility] Comment on above: Order Comment: No: D o not add to previous draw Nurse draw Performed By: #### 5 0608 #### [facility] [address] [place] [address], [facility] MCHC (RBC) [Mass/Vol] 32.6 g/dL Normal 32.0-35.0 [facility] Comment on above: Order Comment: No: D o not add to previous draw Nurse draw Performed By: #### 5 0608 #### [facility] [address] [place] [address], [facility] MCV (RBC) [Entitic vol] 94.2 fL Normal 82.0-98.0 [facility] Comment on above: Order Comment: No: D o not add to previous draw Nurse draw Performed By: #### 5 0608 #### [facility] [address] [place] [address], [facility] Nucleated RBC/100 WBC (Bld) [Ratio] 0 % Normal 0-0 [facility] Comment on above: Order Comment: No: D o not add to previous draw Nurse draw Performed By: #### 5 0608 #### [facility] [address] [place] [id number], [facility] PLAT CNT 214 10*3/uL Normal 150-400 [facility] Comment on above: Order Comment: No: D o not add to previous draw Nurse draw Performed By: #### 5 0608 #### [facility] [address] [place] [address], [place] RBC (Bld) [#/Vol] 3.26 10*6/uL Low 3.80-5.00 [facility] Comment on above: Order Comment: No: D o not add to previous draw Nurse draw Performed By: #### 5 0608 #### [facility] [address] [place] [address], [place] WBC (Bld) [#/Vol] 14.84 10*3/uL High 4.00-10.60 [facility] Comment on above: Order Comment: No: D o not add to previous draw Nurse draw Performed By: #### 5 0608 #### [facility] [address] [place] [address], [place] MAGNESIUM BLOODon 03-24-2021 Magnesium [Mass/Vol] 2.4 mg/dL Normal 1.9-2.7 [facility] Comment on above: Order Comment: evalu ate Atelectasis Performed By: #### 1 0070, 20190 ####[facility] [place] [address], [place] POC GLUCOSE LABon 03-24-2021 Glucose [Mass/Vol] 168 mg/dL High 70-100 [facility] Comment on above: Performed By: #### 3 1595 #### [facility] [address] [place] [address], [place] Glucose [Mass/Vol] 119 mg/dL High 70-100 [facility] Comment on above: Performed By: #### 3 1595 #### [facility] [address] [place] [address], [place] Glucose [Mass/Vol] 132 mg/dL High 70-100 [facility] Comment on above: Performed By: #### 3 1595 #### [facility] [address] [place] [address], [facility] Glucose [Mass/Vol] 104 mg/dL High 70-100 [facility] Comment on above: Performed By: #### 8 5499 #### [facility] [address] [place] [address], [facility] PORTABLE CHEST 1 VIEWon 03-06 PORTABLE CHEST 1 VIEW [facility] Department of Radiology [address] [place] [id number] Patient Name: THIAGO SABILLON : 1950 Sex: F Age: Race: White Pt. Location: [id number] Patient Status: I Ordered Date: 03/24/2021 6:30:00 [...] the same day FINDINGS: Current study is 182 Heart valve marker again seen Right central [...] appropriate Electronically signed: Zina Brenner. Transcribed by: [email or web address], User Resident: Electronically Signed by: ZINA BRENNER @ 03/25/2021 07:16 AM Normal [facility] Comment on above: Order Comment: Evalu ate for Pneumothorax PORTABLE CHEST 1 VIEW [facility] Department of Radiology [address] [place] [address] Patient Name: THIAGO SABILLON DOB: 1950 Sex: F Age: Race: White Pt. Location: [place] [address] Patient Status: I Ordered Date: 03/24/2021 5:00:00 [...] atelectasis. Electronically signed: Roque May. Transcribed by: [email or web address], User Resident: Electronically Signed by: ROQUE MAY @ 03/24/2021 08:02 AM Normal [facility] Comment on above: Order Comment: The A ptima SARS-CoV-2 assay is a nucleic acid amplification test intended for the qualitative detection of RNA from SARS-CoV-2 isolated and purified from nasopharyngeal ([employer]ST[employer]AT [employer]ER),oropharyngeal (OP), nasal swab, sputum, and bronchoalveolar lavage (BAL) specimens from patients with signs and symptoms of infection who are suspected of COVID-19. Results are for the identification of SARS-CoV-2 RNA. The SARS-CoV-2 RNA is generally detectable during the acute phase of infection. The Aptima SARS-CoV-2 Assay on the [employer] system is intended for use by laboratory personnel specifically instructed and trained in the operation of the [place] [employer] system. The Aptima SARS-CoV-2 assay is [...] (Bld) [Time] 33.6 s Normal 25.0-35.0 [facility] Comment on above: Order [...] PURPOSE. Performed By: #### 8 [id number] #### [facility] [address] [place] [address], [facility] BASIC METABOLIC PANELon 03-06 Calcium [Mass/Vol] 8.3 mg/dL Low 8.6-10.3 [facility] Comment on above: Order Comment: post op day 1No: Do not add to previous draw Performed By: #### 3 0965 #### [facility] [address] [place] [address], [facility] Chloride [Moles/Vol] 106 mmol/L Normal 98-107 [facility] Comment on above: Order Comment: post op day 1No: Do not add to previous draw Performed By: #### 3 0965 #### [facility] [address] [place] [address], [facility] CO2 [Moles/Vol] 26 mmol/L Normal 21-31 [facility] Comment on above: Order Comment: post op day 1No: Do not add to previous draw Performed By: #### 3 0965 #### [facility] [address] [place] [address], [facility] Creatinine [Mass/Vol] 0.45 mg/dL Low 0.60-1.20 [facility] Comment on above: Order Comment: post op day 1No: Do not add to previous draw Performed By: #### 3 0965 #### [facility] [address] [place] [address], [facility] GFR/1.73 sq M.predicted among blacks MDRD (S/P/Bld) [Vol rate/Area] mL/min/{1.73_m2} Normal >60 [facility] Comment on above: Order Comment: post op day 1No: Do not add to previous draw Performed By: #### 3 0965 #### [facility] [address] [place] [address], [place] GFR/1.73 sq M.predicted among non-blacks MDRD (S/P/Bld) [Vol rate/Area] mL/min/{1.73_m2} Normal >60 [facility] Comment on above: Order Comment: post op day 1No: Do not add to previous draw Performed By: #### 3 0965 #### [facility] [address] [place] [address], [place] Glucose [Mass/Vol] 122 mg/dL High 70-100 [facility] Comment on above: Order Comment: post op day 1No: Do not add to previous draw Performed By: #### 3 0965 #### [facility] [address] [place] [address], [place] Potassium [Moles/Vol] 4.2 mmol/L Normal 3.5-5.1 [facility] Comment on above: Order Comment: post op day 1No: Do not add to previous draw Performed By: #### 3 0965 #### [facility] [address] [place] [address], [place] Sodium [Moles/Vol] 140 mmol/L Normal 136-145 [facility] Comment on above: Order Comment: post op day 1No: Do not add to previous draw Performed By: #### 3 0965 #### [facility] [address] [place] [address], [place] Urea nitrogen [Mass/Vol] 25 mg/dL Normal 7-25 [facility] Comment on above: Order Comment: post op day 1No: Do not add to previous draw Performed By: #### 3 0965 #### [facility] [address] [place] [address], [place] CBC COMPLETE BLOOD COUNTon 0 6- Erythrocyte distribution width (RBC) [Ratio] 13.4 % Normal 11.5-15.0 [facility] Comment on above: Order Comment: post op day 1No: Do not add to previous draw Performed By: #### 8 [id number] #### [facility] [address] [place] [address], [facility] Hematocrit (Bld) [Volume fraction] 31.2 % Low 36.0-45.0 [facility] Comment on above: Order Comment: post op day 1No: Do not add to previous draw Performed By: #### 8 [id number] #### [facility] [address] [place] [address], [facility] Hemoglobin (Bld) [Mass/Vol] 10.2 g/dL Low 12.0-15.0 [facility] Comment on above: Order Comment: post op day 1No: Do not add to previous draw Performed By: #### 8 [id number] #### [facility] [address] [place] [address], [place] MCH (RBC) [Entitic mass] 31.2 pg Normal 27.0-33.0 [facility] Comment on above: Order Comment: post op day 1No: Do not add to previous draw Performed By: #### 8 [id number] #### [facility] [address] [place] [address], [place] MCHC (RBC) [Mass/Vol] 32.7 g/dL Normal 32.0-35.0 [facility] Comment on above: Order Comment: post op day 1No: Do not add to previous draw Performed By: #### 8 [id number] #### [facility] [address] [place] [address], [place] MCV (RBC) [Entitic vol] 95.4 fL Normal 82.0-98.0 [facility] Comment on above: Order Comment: post op day 1No: Do not add to previous draw Performed By: #### 8 [id number] #### [facility] [address] [place] [address], [place] Nucleated RBC/100 WBC (Bld) [Ratio] 0 % Normal 0-0 [facility] Comment on above: Order Comment: post op day 1No: Do not add to previous draw Performed By: #### 8 [id number] #### [facility] [address] [place] [address], [place] PLAT CNT 168 10*3/uL Normal 150-400 [facility] Comment on above: Order Comment: post op day 1No: Do not add to previous draw Performed By: #### 8 [id number] #### [facility] [address] [place] [address], [facility] RBC (Bld) [#/Vol] 3.27 10*6/uL Low 3.80-5.00 [facility] Comment on above: Order Comment: post op day 1No: Do not add to previous draw Performed By: #### 8 [id number] #### [facility] [address] [place] [address], [facility] WBC (Bld) [#/Vol] 13.20 10*3/uL High 4.00-10.60 [facility] Comment on above: Order Comment: post op day 1No: Do not add to previous draw Performed By: #### 8 [id number] #### [facility] [address] [place] [id number], [facility] LACTATE BLOODon 03-23-2021 Lactate [Moles/Vol] 1.0 mmol/L Normal 0.5-2.2 [facility] Comment on above: Order Comment: post op day 1No: Do not add to previous draw Performed By: #### 3 0965 #### [facility] [address] [place] [id number], [facility] MAGNESIUM BLOODon 03-23-2021 Magnesium [Mass/Vol] 2.1 mg/dL Normal 1.9-2.7 [facility] Comment on above: Order Comment: post op day 1No: Do not add to previous draw Performed By: #### 3 0965 #### [facility] [address] Operative Reporton Operative Report MR#: [id number] I [facility] Pt. Name: Thiago Sabillon Room #: JESSICA [id number] Discharge Date: Birthdate: 1950 OPERATIVE REPORT DATE OF SURGERY: 03/22/2021 SURGEON: Chele Sanchez MD PREOPERATIVE DIAGNOSES: Severe mitral regurgitation, flail mitral valve posterior leaflet. POSTOPERATIVE DIAGNOSES: Severe mitral regurgitation, flail mitral valve posterior leaflet. OPERATIONS: 1. Minimally invasive video-assisted mitral valve repair with triangular resection of posterior scallop P2, #28 Physio ring annuloplasty. 2. Independent interpretation of transesophageal echocardiogram. STAFF SOFTWARE ENGINEER: Juaquin. ANESTHESIA: General with endotracheal intubation. ANESTHESIOLOGIST: [...] Sanchez MD Date Trans: 03/23/2021 12:26 A/nader [id number] Normal [facility] POC GLUCOSE LABon 03-23-2021 Glucose [Mass/Vol] 125 mg/dL High 70-100 [facility] Comment on above: Performed By: #### 5 0608 #### [facility] [address] [address], [place] Glucose [Mass/Vol] 147 mg/dL High 70-100 [facility] Comment on above: Performed By: #### 8 [id number] #### [facility] [address] [address], [place] Glucose [Mass/Vol] 128 mg/dL High 70-100 [facility] Comment on above: Performed By: #### 8 [id number] #### [facility] [address] [address], [place] Glucose [Mass/Vol] 102 mg/dL High 70-100 [facility] Comment on above: Performed By: #### 8 5499 #### [facility] [address] [facility] [place] [address], [place] Glucose [Mass/Vol] 115 mg/dL High 70-100 [facility] Comment on above: Performed By: #### 3 1595 #### [facility] [address] [facility] [place] [address], [place] Glucose [Mass/Vol] 91 mg/dL Normal 70-100 [facility] Comment on above: Performed By: #### 3 1595 #### [facility] [address] [facility] [place] [address], [place] Glucose [Mass/Vol] 113 mg/dL High 70-100 [facility] Comment on above: Performed By: #### 3 1595 #### [facility] [address] [facility] [place] [address], [place] PORTABLE CHEST 1 VIEWon 03-06 PORTABLE CHEST 1 VIEW [facility] Department of Radiology [address] [place] [id number] Patient Name: THIAGO SABILLON : 1950 Sex: F Age: Race: White Pt. Location: [place] [address] Patient Status: I Ordered Date: 03/23/2021 7:00:00 [...] base. Electronically signed: Vernell Mcclure. Transcribed by: [email or web address], User Resident: Electronically Signed by: VERNELL MCCLURE @ 03/23/2021 08:22 AM Normal [facility] Comment on above: Order Comment: The A ptima SARS-CoV-2 assay is a nucleic acid amplification test intended for the qualitative detection of RNA from SARS-CoV-2 isolated and purified from nasopharyngeal ([employer]ST[employer]AT [employer]ER),oropharyngeal (OP), nasal swab, sputum, and bronchoalveolar lavage (BAL) specimens from patients with signs and symptoms of infection who are suspected of COVID-19. Results are for the identification of SARS-CoV-2 RNA. The SARS-CoV-2 RNA is generally detectable during the acute phase of infection. The Aptima SARS-CoV-2 Assay on the [employer] Fusion system is intended for use by laboratory personnel specifically instructed and trained in the operation of the [place] [employer] system. The Aptima SARS-CoV-2 assay is [...] [Relative time] 1.19 {INR} High 0.91-1.16 [facility] Comment on above: Order [...] 1995;[id number]. Performed By: #### 8 [id number] #### [facility] [address] [place] [address], [facility] PT Coag (PPP) [Time] 15.2 s High 12.3-14.8 [facility] Comment on above: Order Comment: post op day 1No: Do not add to previous draw Result Comment: ALL RESULTS MUST BE INTERPRETED WITH RESPECT TO BLOOD DRAWING ARTIFACT OR DILUTION ERROR OF ANTICOAGULANT AT THE TIME OF SAMPLING. Performed By: #### 8 [id number] #### [facility] [address] [place] [address], [facility] *MRSA/MSSA DNA NASALon 03-22 *MRSA/MSSA DNA NASAL Clinical Report: (D ) Specimen: NASAL SWAB Collected: 03/22/2021 08:00 Status: Final Last Updated: 03/23/2021 17:18 MSSA DNA (Final) Negative MRSA DNA (Final) Negative Normal [facility] Comment on above: Performed By: #### 8 [id number] #### [facility] [address] [place] [address], [place] ACTIVATED CLOTTING TIMEon ACTIVATED CLOTTING TIME 110 sec Normal 82-152 [facility] Comment on above: Performed By: #### 3 1792 #### [facility] [address] [place] [address], [place] ACTIVATED CLOTTING TIME 429 sec High 82-152 [facility] Comment on above: Performed By: #### 8 [id number] #### [facility] [address] [place] [address], [place] ACTIVATED CLOTTING TIME 571 sec High 82-152 [facility] Comment on above: Performed By: #### 3 1792 #### [facility] [address] [place] [address], [place] ACTIVATED CLOTTING TIME 390 sec High 82-152 [facility] Comment on above: Performed By: #### 3 1792 #### [facility] [address] [place] [address], [place] ACTIVATED CLOTTING TIME 132 sec Normal 82-152 [facility] Comment on above: Performed By: #### 8 5499 #### [facility] [address] APTTon 03-22-2021 aPTT Coag (Bld) [Time] 29.5 s Normal 25.0-35.0 [facility] Comment on above: Order [...] THIS PURPOSE. Performed By: #### 5 6101, 87129 ####[facility] aPTT Coag (Bld) [Time] 32.2 s Normal 25.0-35.0 [facility] Comment on above: Result Comment: ALL RESULTS [...] PURPOSE. Performed By: #### 8 5499 #### [facility] [address] BASIC METABOLIC PANELon 06- Calcium [Mass/Vol] 8.2 mg/dL Low 8.6-10.3 [facility] Comment on above: Performed By: #### 3 6, 63117 ####[facility] Chloride [Moles/Vol] 108 mmol/L High 98-107 [facility] Comment on above: Performed By: #### 3 1046, 43700 ####[facility] [place] [address], [place] CO2 [Moles/Vol] 26 mmol/L Normal 21-31 [facility] Comment on above: Performed By: #### 3 1045, 20236 ####[facility] [place] [address], [place] Creatinine [Mass/Vol] 0.45 mg/dL Low 0.60-1.20 [facility] Comment on above: Performed By: #### 3 1045, 02363 ####[facility] [place] [address], [place] GFR/1.73 sq M.predicted among blacks MDRD (S/P/Bld) [Vol rate/Area] mL/min/{1.73_m2} Normal >60 [facility] Comment on above: Performed By: #### 3 1045, 69193 ####[facility] [place] [address], [place] GFR/1.73 sq M.predicted among non-blacks MDRD (S/P/Bld) [Vol rate/Area] mL/min/{1.73_m2} Normal >60 [facility] Comment on above: Performed By: #### 3 1045, 44346 ####[facility] [place] [address], [place] Glucose [Mass/Vol] 135 mg/dL High 70-100 [facility] Comment on above: Performed By: #### 3 1045, 25040 ####[facility] [place] [address], [place] Potassium [Moles/Vol] 3.8 mmol/L Normal 3.5-5.1 [facility] Comment on above: Performed By: #### 3 1045, 28161 ####[facility] [place] [address], [place] Sodium [Moles/Vol] 141 mmol/L Normal 136-145 [facility] Comment on above: Performed By: #### 3 1046, 70247 ####[facility] [place] [address], [place] Urea nitrogen [Mass/Vol] 24 mg/dL Normal 7-25 [facility] Comment on above: Performed By: #### 3 1046, 16796 ####[facility] [place] [address], [place] Calcium [Mass/Vol] 8.4 mg/dL Low 8.6-10.3 [facility] Comment on above: Performed By: #### 8 5499 #### [facility] [address] [place] [address], [place] Chloride [Moles/Vol] 105 mmol/L Normal 98-107 [facility] Comment on above: Performed By: #### 8 5499 #### [facility] [address] [place] [address], [place] CO2 [Moles/Vol] 28 mmol/L Normal 21-31 [facility] Comment on above: Performed By: #### 8 5499 #### [facility] [address] [place] [address], [place] Creatinine [Mass/Vol] 0.53 mg/dL Low 0.60-1.20 [facility] Comment on above: Performed By: #### 8 5499 #### [facility] [address] [place] [address], [place] GFR/1.73 sq M.predicted among blacks MDRD (S/P/Bld) [Vol rate/Area] mL/min/{1.73_m2} Normal >60 [facility] Comment on above: Performed By: #### 8 5499 #### [facility] [address] [place] [address], [place] GFR/1.73 sq M.predicted among non-blacks MDRD (S/P/Bld) [Vol rate/Area] mL/min/{1.73_m2} Normal >60 [facility] Comment on above: Performed By: #### 8 5499 #### [facility] [address] [place] [address], [place] Glucose [Mass/Vol] 151 mg/dL High 70-100 [facility] Comment on above: Performed By: #### 8 5499 #### [facility] [address] [place] [address], [facility] Potassium [Moles/Vol] 3.9 mmol/L Normal 3.5-5.1 [facility] Comment on above: Performed By: #### 8 5499 #### [facility] [address] [place] [address], [place] Sodium [Moles/Vol] 140 mmol/L Normal 136-145 [facility] Comment on above: Performed By: #### 8 5499 #### [facility] [address] [place] [address], [facility] Urea nitrogen [Mass/Vol] 25 mg/dL Normal 7-25 [facility] Comment on above: Performed By: #### 8 5499 #### [facility] [address] [place] [address], [place] CARDIAC MAGNESIUM BLOODon Magnesium [Mass/Vol] 2.5 mg/dL Normal 1.9-2.7 [facility] Comment on above: Performed By: #### 3 7316, 02503 ####[facility] [place] [address], [facility] CBC COMPLETE BLOOD COUNTon 0 03-22-2021 Erythrocyte distribution width (RBC) [Ratio] 13.0 % Normal 11.5-15.0 [facility] Comment on above: Order Comment: No: D o not add to previous draw Performed By: #### 8 [id number] #### [facility] [address] [place] [address], [facility] Hematocrit (Bld) [Volume fraction] 32.1 % Low 36.0-45.0 [facility] Comment on above: Order Comment: No: D o not add to previous draw Performed By: #### 8 [id number] #### [facility] [address] [place] [address], [facility] Hemoglobin (Bld) [Mass/Vol] 10.2 g/dL Low 12.0-15.0 [facility] Comment on above: Order Comment: No: D o not add to previous draw Performed By: #### 8 5499 #### [facility] [address] [place] [address], [facility] MCH (RBC) [Entitic mass] 30.4 pg Normal 27.0-33.0 [facility] Comment on above: Order Comment: No: D o not add to previous draw Performed By: #### 8 [id number] #### [facility] [address] [place] [address], [facility] MCHC (RBC) [Mass/Vol] 31.8 g/dL Low 32.0-35.0 [facility] Comment on above: Order Comment: No: D o not add to previous draw Performed By: #### 8 [id number] #### [facility] [address] [place] [address], [facility] MCV (RBC) [Entitic vol] 95.8 fL Normal 82.0-98.0 [facility] Comment on above: Order Comment: No: D o not add to previous draw Performed By: #### 8 [id number] #### [facility] [address] [place] [address], [facility] Nucleated RBC/100 WBC (Bld) [Ratio] 0 % Normal 0-0 [facility] Comment on above: Order Comment: No: D o not add to previous draw Performed By: #### 8 5499 #### [facility] [address] [place] [address], [facility] PLAT CNT 155 10*3/uL Normal 150-400 [facility] Comment on above: Order Comment: No: D o not add to previous draw Performed By: #### 8 5499 #### [facility] [address] [facility] [place] [address], [facility] RBC (Bld) [#/Vol] 3.35 10*6/uL Low 3.80-5.00 [facility] Comment on above: Order Comment: No: D o not add to previous draw Performed By: #### 8 [id number] #### [facility] [address] [facility] [place] [address], [facility] WBC (Bld) [#/Vol] 14.75 10*3/uL High 4.00-10.60 [facility] Comment on above: Order Comment: No: D o not add to previous draw Performed By: #### 8 [id number] #### [facility] [address] [facility] [place] [address], [facility] CBC W/DIFFon 03-22-2021 ABS IMM GRANS 0.1 10*3/uL Normal 0.0-0.2 [facility] Comment on above: Performed By: #### 8 [id number] #### [facility] [address] [facility] [place] [address], [facility] ABS NEUTROPHILS 10.5 10*3/uL High 1.6-7.6 [facility] Comment on above: Performed By: #### 8 5499 #### [facility] [address] [facility] [place] [address], [facility] Basophils (Bld) [#/Vol] 0.0 10*3/uL Normal 0.0-0.2 [facility] Comment on above: Performed By: #### 8 5499 #### [facility] [address] [facility] [place] [address], [facility] Basophils/100 WBC (Bld) 0.2 % Normal 0.0-1.0 [facility] Comment on above: Performed By: #### 8 5499 #### [facility] [address] [place] [address], [facility] Eosinophils (Bld) [#/Vol] 0.1 10*3/uL Normal 0.0-0.5 [facility] Comment on above: Performed By: #### 8 [id number] #### [facility] [address] [place] [address], [facility] Eosinophils/100 WBC (Bld) 0.5 % Normal 0.0-6.0 [facility] Comment on above: Performed By: #### 8 [id number] #### [facility] [address] [facility]. [address] Erythrocyte distribution width (RBC) [Ratio] 13.0 % Normal 11.5-15.0 [facility] Comment on above: Performed By: #### 8 [id number] #### [facility] [address] [facility]. [address] Hematocrit (Bld) [Volume fraction] 27.3 % Low 36.0-45.0 [facility] Comment on above: Performed By: #### 8 [id number] #### [facility] [address] [place] [address], [facility] Hemoglobin (Bld) [Mass/Vol] 9.1 g/dL Low 12.0-15.0 [facility] Comment on above: Performed By: #### 8 5499 #### [facility] [address] [place] [address], [facility] IMMATURE GRANS 0.9 % Normal 0.0-1.0 [facility] Comment on above: Performed By: #### 8 5499 #### [facility] [address] [place] [address], [facility] Lymphocytes (Bld) [#/Vol] 1.7 10*3/uL Normal 1.2-4.0 [facility] Comment on above: Performed By: #### 8 5499 #### [facility] [address] [place] [address], [facility] Lymphocytes/100 WBC (Bld) 13.2 % Low 20.0-45.0 [facility] Comment on above: Performed By: #### 8 [id number] #### [facility] [address] [place] [address], [facility] MCH (RBC) [Entitic mass] 31.0 pg Normal 27.0-33.0 [facility] Comment on above: Performed By: #### 8 [id number] #### [facility] [address] [place] [address], [facility] MCHC (RBC) [Mass/Vol] 33.3 g/dL Normal 32.0-35.0 [facility] Comment on above: Performed By: #### 8 5499 #### [facility] [address] [facility] [place] [address], [facility] MCV (RBC) [Entitic vol] 92.9 fL Normal 82.0-98.0 [facility] Comment on above: Performed By: #### 8 5499 #### [facility] [address] [place] [address], [facility] Monocytes (Bld) [#/Vol] 0.7 10*3/uL Normal 0.1-1.0 [facility] Comment on above: Performed By: #### 8 5499 #### [facility] [address] [place] [address], [facility] MONOS 5.4 % Normal 5.0-12.0 [facility] Comment on above: Performed By: #### 8 5499 #### [facility] [address] [place] [address], [facility] Neutrophils/100 WBC (Bld) 79.8 % High 40.0-72.0 [facility] Comment on above: Performed By: #### 8 5499 #### [facility] [address] [place] [address], [facility] Nucleated RBC/100 WBC (Bld) [Ratio] 0 % Normal 0-0 [facility] Comment on above: Performed By: #### 8 5499 #### [facility] [address] [place] [id number], [facility] PLAT CNT 142 10*3/uL Low 150-400 [facility] Comment on above: Performed By: #### 8 [id number] #### [facility] [address] [place] [address], [facility] RBC (Bld) [#/Vol] 2.94 10*6/uL Low 3.80-5.00 [facility] Comment on above: Performed By: #### 8 [id number] #### [facility] [address] [place] [address], [facility] WBC (Bld) [#/Vol] 13.20 10*3/uL High 4.00-10.60 [facility] Comment on above: Performed By: #### 8 [id number] #### [facility] [address] [place] [id number], [facility] FIBRINOGENon 03-22-2021 FIBRINOGEN 242 mg/dL Normal 150-425 [facility] Comment on above: Performed By: #### 8 [id number] #### [facility] [address] [place] [id number], [facility] LACTATE BLOODon 03-22-2021 Lactate [Moles/Vol] 0.6 mmol/L Normal 0.5-2.2 [facility] Comment on above: Order Comment: No: D o not add to previous draw Performed By: #### 3 0965 #### [facility] [address] [place] [id number], [facility] Lactate [Moles/Vol] 0.9 mmol/L Normal 0.5-2.2 [facility] Comment on above: Performed By: #### 1 0054 ####[facility] [place] [address], [facility] MAGNESIUM BLOODon 03-22-2021 Magnesium [Mass/Vol] 3.7 mg/dL High 1.9-2.7 [facility] Comment on above: Performed By: #### 8 [id number] #### [facility] [address] [place] [address], [facility] PERFUSION BLOOD PANELon 03-06 BASE EXCESS 2.0 mmol/L Normal -2.0-3.0 [facility] Comment on above: Performed By: #### 8 5499 #### [facility] [address] [place] [address], [facility] Glucose [Mass/Vol] 158 mg/dL High 70-105 [facility] Comment on above: Performed By: #### 8 [id number] #### [facility] [address] [place] [address], [facility] Hematocrit (Bld) [Volume fraction] 25 % Low 38-51 [facility] Comment on above: Performed By: #### 8 [id number] #### [facility] [address] [place] [address], [facility] Hemoglobin (Bld) [Mass/Vol] 8.5 g/dL Low 12.0-17.0 [facility] Comment on above: Performed By: #### 8 [id number] #### [facility] [address] [place] [address], [facility] IONIZED CALCIUM 1.30 mmol/L Normal 1.12-1.32 [facility] Comment on above: Performed By: #### 8 [id number] #### [facility] [address] [place] [address], [facility] Oxygen (Bld) [Partial pressure] 173.0 mm[Hg] High 80.0-105.0 [facility] Comment on above: Performed By: #### 8 [id number] #### [facility] [address] [place] [address], [place] PCO2 39.5 mmHg Normal 35.0-45.0 [facility] Comment on above: Performed By: #### 8 [id number] #### [facility] [address] [place] [address], [place] pH (Bld) 7.44 [pH] Normal 7.35-7.45 [facility] Comment on above: Performed By: #### 8 [id number] #### [facility] [address] [place] [address], [place] Potassium [Moles/Vol] 4.0 mmol/L Normal 3.5-4.9 [facility] Comment on above: Performed By: #### 8 [id number] #### [facility] [address] [place] [address], [place] Sodium [Moles/Vol] 138 mmol/L Normal 138-146 [facility] Comment on above: Performed By: #### 8 [id number] #### [facility] [address] [place] [address], [place] BASE EXCESS 2.0 mmol/L Normal -2.0-3.0 [facility] Comment on above: Performed By: #### 3 1791 #### [facility] [address] [place] [address], [place] Glucose [Mass/Vol] 159 mg/dL High 70-105 [facility] Comment on above: Performed By: #### 3 1791 #### [facility] [address] [place] [address], [place] Hematocrit (Bld) [Volume fraction] 21 % Low 38-51 [facility] Comment on above: Performed By: #### 3 179 #### [facility] [address] [place] [address], [place] Hemoglobin (Bld) [Mass/Vol] 7.1 g/dL Low 12.0-17.0 [facility] Comment on above: Performed By: #### 3 1791 #### [facility] [address] [place] [address], [facility] IONIZED CALCIUM 1.29 mmol/L Normal 1.12-1.32 [facility] Comment on above: Performed By: #### 3 1791 #### [facility] [address] [place] [address], [facility] Oxygen (Bld) [Partial pressure] 175.0 mm[Hg] High 80.0-105.0 [facility] Comment on above: Performed By: #### 3 1791 #### [facility] [address] [place] [address], [facility] PCO2 38.9 mmHg Normal 35.0-45.0 [facility] Comment on above: Performed By: #### 3 1791 #### [facility] [address] [place] [address], [facility] pH (Bld) 7.44 [pH] Normal 7.35-7.45 [facility] Comment on above: Performed By: #### 3 1791 #### [facility] [address] [place] [address], [facility] Potassium [Moles/Vol] 4.0 mmol/L Normal 3.5-4.9 [facility] Comment on above: Performed By: #### 3 1791 #### [facility] [address] [place] [address], [place] Sodium [Moles/Vol] 138 mmol/L Normal 138-146 [facility] Comment on above: Performed By: #### 3 1791 #### [facility] [address] [place] [address], [place] BASE EXCESS 4.0 mmol/L High -2.0-3.0 [facility] Comment on above: Performed By: #### 3 1791 #### [facility] [address] [place] [address], [facility] Glucose [Mass/Vol] 160 mg/dL High 70-105 [facility] Comment on above: Performed By: #### 3 1791 #### [facility] [address] [place] [address], [facility] Hematocrit (Bld) [Volume fraction] 26 % Low 38-51 [facility] Comment on above: Performed By: #### 3 1791 #### [facility] [address] [place] [address], [facility] Hemoglobin (Bld) [Mass/Vol] 8.8 g/dL Low 12.0-17.0 [facility] Comment on above: Performed By: #### 3 1791 #### [facility] [address] [place] [address], [facility] IONIZED CALCIUM 1.00 mmol/L Low 1.12-1.32 [facility] Comment on above: Performed By: #### 3 1791 #### [facility] [address] [place] [address], [facility] Oxygen (Bld) [Partial pressure] 411.0 mm[Hg] High 80.0-105.0 [facility] Comment on above: Performed By: #### 3 1791 #### [facility] [address] [place] [address], [place] PCO2 54.4 mmHg High 35.0-45.0 [facility] Comment on above: Performed By: #### 3 1791 #### [facility] [address] [place] [address], [place] pH (Bld) 7.36 [pH] Normal 7.35-7.45 [facility] Comment on above: Performed By: #### 3 1791 #### [facility] [address] [place] [address], [place] Potassium [Moles/Vol] 4.3 mmol/L Normal 3.5-4.9 [facility] Comment on above: Performed By: #### 3 1791 #### [facility] [address] [place] [address], [place] Sodium [Moles/Vol] 137 mmol/L Low 138-146 [facility] Comment on above: Performed By: #### 3 1791 #### [facility] [address] [place] [address], [facility] BASE EXCESS 1.0 mmol/L Normal -2.0-3.0 [facility] Comment on above: Performed By: #### 3 1791 #### [facility] [address] [place] [address], [place] Glucose [Mass/Vol] 121 mg/dL High 70-105 [facility] Comment on above: Performed By: #### 3 1791 #### [facility] [address] [place] [address], [facility] Hematocrit (Bld) [Volume fraction] 22 % Low 38-51 [facility] Comment on above: Performed By: #### 3 1791 #### [facility] [address] [place] [address], [place] Hemoglobin (Bld) [Mass/Vol] 7.5 g/dL Low 12.0-17.0 [facility] Comment on above: Performed By: #### 3 1791 #### [facility] [address] [place] [address], [place] IONIZED CALCIUM 0.98 mmol/L Low 1.12-1.32 [facility] Comment on above: Performed By: #### 3 1791 #### [facility] [address] [place] [address], [place] Oxygen (Bld) [Partial pressure] 40.0 mm[Hg] Normal [facility] Comment on above: Performed By: #### 3 1792 #### [facility] [address] [place] [address], [place] PCO2 45.9 mmHg Normal 41.0-51.0 [facility] Comment on above: Performed By: #### 3 1791 #### [facility] [address] [place] [address], [place] pH (Bld) 7.38 [pH] Normal 7.31-7.41 [facility] Comment on above: Performed By: #### 3 1791 #### [facility] [address] [place] [address], [place] Potassium [Moles/Vol] 4.6 mmol/L Normal 3.5-4.9 [facility] Comment on above: Performed By: #### 3 1791 #### [facility] [address] [place] [address], [place] Sodium [Moles/Vol] 137 mmol/L Low 138-146 [facility] Comment on above: Performed By: #### 3 1791 #### [facility] [address] [place] [address], [place] BASE EXCESS 4.0 mmol/L High -2.0-3.0 [facility] Comment on above: Performed By: #### 8 [id number] #### [facility] [address] [place] [address], [place] Glucose [Mass/Vol] 107 mg/dL High 70-105 [facility] Comment on above: Performed By: #### 8 [id number] #### [facility] [address] [place] [address], [place] Hematocrit (Bld) [Volume fraction] 24 % Low 38-51 [facility] Comment on above: Performed By: #### 8 [id number] #### [facility] [address] [place] [address], [place] Hemoglobin (Bld) [Mass/Vol] 8.2 g/dL Low 12.0-17.0 [facility] Comment on above: Performed By: #### 8 [id number] #### [facility] [address] [place] [address], [facility] IONIZED CALCIUM 0.98 mmol/L Low 1.12-1.32 [facility] Comment on above: Performed By: #### 8 [id number] #### [facility] [address] [place] [address], [facility] Oxygen (Bld) [Partial pressure] 424.0 mm[Hg] High 80.0-105.0 [facility] Comment on above: Performed By: #### 8 [id number] #### [facility] [address] [place] [address], [facility] PCO2 47.6 mmHg High 35.0-45.0 [facility] Comment on above: Performed By: #### 8 [id number] #### [facility] [address] [place] [address], [facility] pH (Bld) 7.40 [pH] Normal 7.35-7.45 [facility] Comment on above: Performed By: #### 8 [id number] #### [facility] [address] [place] [address], [facility] Potassium [Moles/Vol] 3.6 mmol/L Normal 3.5-4.9 [facility] Comment on above: Performed By: #### 8 [id number] #### [facility] [address] [place] [address], [facility] Sodium [Moles/Vol] 138 mmol/L Normal 138-146 [facility] Comment on above: Performed By: #### 8 [id number] #### [facility] [address] [place] [address], [facility] BASE EXCESS 3.0 mmol/L Normal -2.0-3.0 [facility] Comment on above: Performed By: #### 3 1791 #### [facility] [address] [place] [address], [place] Glucose [Mass/Vol] 116 mg/dL High 70-105 [facility] Comment on above: Performed By: #### 3 1791 #### [facility] [address] [place] [address], [place] Hematocrit (Bld) [Volume fraction] 31 % Low 38-51 [facility] Comment on above: Performed By: #### 3 1791 #### [facility] [address] [place] [address], [place] Hemoglobin (Bld) [Mass/Vol] 10.5 g/dL Low 12.0-17.0 [facility] Comment on above: Performed By: #### 3 1791 #### [facility] [address] [place] [address], [facility] IONIZED CALCIUM 1.14 mmol/L Normal 1.12-1.32 [facility] Comment on above: Performed By: #### 3 1791 #### [facility] [address] [place] [address], [place] Oxygen (Bld) [Partial pressure] 296.0 mm[Hg] High 80.0-105.0 [facility] Comment on above: Performed By: #### 3 1791 #### [facility] [address] [place] [address], [place] PCO2 39.1 mmHg Normal 35.0-45.0 [facility] Comment on above: Performed By: #### 3 1791 #### [facility] [address] [place] [address], [place] pH (Bld) 7.45 [pH] Normal 7.35-7.45 [facility] Comment on above: Performed By: #### 3 1791 #### [facility] [address] [place] [address], [place] Potassium [Moles/Vol] 3.5 mmol/L Normal 3.5-4.9 [facility] Comment on above: Performed By: #### 3 1792 #### [facility] [address] [place] [address], [facility] Sodium [Moles/Vol] 139 mmol/L Normal 138-146 [facility] Comment on above: Performed By: #### 3 1792 #### [facility] [address] [place] [address], [facility] BASE EXCESS 3.0 mmol/L Normal -2.0-3.0 [facility] Comment on above: Performed By: #### 3 0738 #### [facility] [address] [place] [address], [facility] Glucose [Mass/Vol] 107 mg/dL High 70-105 [facility] Comment on above: Performed By: #### 3 0738 #### [facility] [address] [place] [address], [facility] Hematocrit (Bld) [Volume fraction] 33 % Low 38-51 [facility] Comment on above: Performed By: #### 3 0738 #### [facility] [address] [place] [address], [facility] Hemoglobin (Bld) [Mass/Vol] 11.2 g/dL Low 12.0-17.0 [facility] Comment on above: Performed By: #### 3 0738 #### [facility] [address] [place] [address], [facility] IONIZED CALCIUM 1.16 mmol/L Normal 1.12-1.32 [facility] Comment on above: Performed By: #### 3 0738 #### [facility] [address] [place] [address], [facility] Oxygen (Bld) [Partial pressure] 234.0 mm[Hg] High 80.0-105.0 [facility] Comment on above: Performed By: #### 3 0738 #### [facility] [address] [place] [address], [place] PCO2 41.9 mmHg Normal 35.0-45.0 [facility] Comment on above: Performed By: #### 3 0738 #### [facility] [address] [place] [address], [place] pH (Bld) 7.42 [pH] Normal 7.35-7.45 [facility] Comment on above: Performed By: #### 3 0738 #### [facility] [address] [place] [address], [place] Potassium [Moles/Vol] 3.8 mmol/L Normal 3.5-4.9 [facility] Comment on above: Performed By: #### 3 0738 #### [facility] [address] [place] [address], [place] Sodium [Moles/Vol] 138 mmol/L Normal 138-146 [facility] Comment on above: Performed By: #### 3 0738 #### [facility] [address] [place] [address], [place] POC GLUCOSE LABon 03-22-2021 Glucose [Mass/Vol] 117 mg/dL High 70-100 [facility] Comment on above: Performed By: #### 3 1595 #### [facility] [address] [place] [address], [place] Glucose [Mass/Vol] 110 mg/dL High 70-100 [facility] Comment on above: Performed By: #### 8 [id number] #### [facility] [address] [place] [address], [place] Glucose [Mass/Vol] 143 mg/dL High 70-100 [facility] Comment on above: Performed By: #### 8 [id number] #### [facility] [address] [place] [address], [place] Glucose [Mass/Vol] 169 mg/dL High 70-100 [facility] Comment on above: Performed By: #### 5 0608 #### [facility] [address] [place] [address], [facility] Glucose [Mass/Vol] 88 mg/dL Normal 70-100 [facility] Comment on above: Performed By: #### 3 1595 #### [facility] [address] [place] [address], [facility] PORTABLE CHEST 1 VIEWon 03-06 PORTABLE CHEST 1 VIEW [facility] Department of Radiology [address] [place] [address] Patient Name: THIAGO SABILLON : 1950 Sex: F Age: Race: White Pt. Location: [place] [address] Patient Status: I Ordered Date: 03/22/2021 12:30:00 [...] appropriate Electronically signed: Zina Brenner. Transcribed by: [email or web address], User Resident: Electronically Signed by: ZINA BRENNER @ 03/22/2021 01:42 PM Normal [facility] Comment on above: Order Comment: Check Chest Tube Position, ON ARRIVAL TO CVU PROTHROMBIN TIMEon INR Coag (PPP) [Relative time] 1.22 {INR} High 0.91-1.16 [facility] Comment on above: Order [...] 1995;108:231S-246S. Performed By: #### 8 [id number] #### [facility] [address] [place] [address], [facility] PT Coag (PPP) [Time] 15.4 s High 12.3-14.8 [facility] Comment on above: Order Comment: No: D o not add to previous draw Result Comment: ALL RESULTS MUST BE INTERPRETED WITH RESPECT TO BLOOD DRAWING ARTIFACT OR DILUTION ERROR OF ANTICOAGULANT AT THE TIME OF SAMPLING. Performed By: #### 8 [id number] #### [facility] [address] [place] [address], [facility] INR Coag (PPP) [Relative time] 1.48 {INR} High 0.91-1.16 [facility] Comment on above: Result Comment: ACCC P [...] 1995;108:[id number]. Performed By: #### 8 [id number] #### [facility] [address] [place] [address], [place] PT Coag (PPP) [Time] 18.0 s High 12.3-14.8 [facility] Comment on above: Result Comment: ALL RESULTS MUST BE INTERPRETED WITH RESPECT TO BLOOD DRAWING ARTIFACT OR DILUTION ERROR OF ANTICOAGULANT AT THE TIME OF SAMPLING. Performed By: #### 8 [id number] #### [facility] 3000 [facility]. [address] Pulmonary Functionon 021 Pulmonary Function MR #: [id number] [facility] PT. Name: Thiago Sabillon Date: 03/20/2021 Date [...] Begum MD Date Trans: 03/22/2021 01:57 P/ [id number] cc: Balta Jane M.D. [address] [place] [address] Normal [facility] RBC'S 2 UNITSon 03-22-2021 CROSSMATCH INTERP 1 COMP Normal [facility] Comment on above: Performed By: #### 8 [id number] #### [facility] [address] [place] [address], [facility] CROSSMATCH INTERP 2 COMP Normal [facility] Comment on above: Performed By: #### 8 [id number] #### [facility] [address] [place] [address], [place] PRODUCT CODE 1 E0336 Normal [facility] Comment on above: Performed By: #### 8 [id number] #### [facility] [address] [place] [address], [place] PRODUCT CODE 2 E0336 Normal [facility] Comment on above: Performed By: #### 8 [id number] #### [facility] [address] [place] [address], [place] PRODUCT STATUS 1 RE Normal [facility] Comment on above: Result Comment: Resu lt changed by IF on 03/22/2021 09:49. The previous value was XM. Result changed by IF on 03/22/2021 12:46. The previous value was IS. Result changed by IF on 03/25/2021 06:46. The previous value was XM. Performed By: #### 8 [id number] #### [facility] [address] [place] [address], [place] PRODUCT STATUS 2 RE Normal [facility] Comment on above: Result Comment: Resu lt changed by IF on 03/22/2021 09:49. The previous value was XM. Result changed by IF on 03/22/2021 12:46. The previous value was IS. Result changed by IF on 03/25/2021 06:46. The previous value was XM. Performed By: #### 8 [id number] #### [facility] [address] [place] [address], [place] UNIT ABO 1 A Normal [facility] Comment on above: Performed By: #### 8 [id number] #### [facility] [address] [place] [address], [place] UNIT ABO 2 A Normal [facility] Comment on above: Performed By: #### 8 [id number] #### [facility] 3000 [facility]. [address] UNIT ID 1 [id number] Normal [facility] Comment on above: Performed By: #### 8 [id number] #### [facility] 3000 [facility]. [address] UNIT ID 2 [id number] Normal [facility] Comment on above: Performed By: #### 8 [id number] #### [facility] 3000 [facility]. [address] UNIT RH 1 Positive Normal [facility] Comment on above: Performed By: #### 8 [id number] #### [facility] 3000 [facility]. [address] UNIT RH 2 Positive Normal [facility] Comment on above: Performed By: #### 8 [id number] #### [facility] [address] *MRSA/MSSA DNA NASALon 03-20 *MRSA/MSSA DNA NASAL Clinical Report: (D ) Specimen: NASAL SWAB Collected: 03/20/2021 13:16 Status: Final Last Updated: 03/21/2021 15:36 MSSA DNA (Final) Negative MRSA DNA (Final) Negative Normal [facility] Comment on above: Performed By: #### 3 1595 #### [address] *SARS-CoV-2 COVID-19on 03-20 SARS-CoV-2 (COVID-19) RNA GÓMEZ+probe Ql (Unsp spec) Not detected Normal Not Detected [facility] Comment on above: Order Comment: The A ptima SARS-CoV-2 assay is a nucleic acid amplification test intended for the qualitative detection of RNA from SARS-CoV-2 isolated and purified from nasopharyngeal ([employer]ST[employer]AT [employer]ER),oropharyngeal (OP), nasal swab, sputum, and bronchoalveolar lavage (BAL) specimens from patients with signs and symptoms of infection who are suspected of COVID-19. Results are for the identification of SARS-CoV-2 RNA. The SARS-CoV-2 RNA is generally detectable during the acute phase of infection. The Aptima SARS-CoV-2 Assay on the [place] [employer] system is intended for use by laboratory personnel specifically instructed and trained in the operation of the [place] [employer] system. The Aptima SARS-CoV-2 assay is [...] information. Performed By: #### 3 1792 #### [facility] [address] APTTon 03-20-2021 aPTT Coag (Bld) [Time] 34.1 s Normal 25.0-35.0 [facility] Comment on above: Result Comment: ALL RESULTS [...] PURPOSE. Performed By: #### 8 [id number] #### [facility] 3000 [facility]. [address] ARTERIAL BLOOD GAS W/COOXon 03-20-2021 BASE EXCESS 5 mmol/L High -2-3 [facility] Comment on above: Performed By: #### 8 [id number] #### [facility] 3000 [facility]. [address] COHB 0.8 % Normal 0.0-1.5 [facility] Comment on above: Performed By: #### 8 [id number] #### [facility] [address] [place] [address], [facility] FIO2 21 % Normal [facility] Comment on above: Performed By: #### 8 [id number] #### [facility] [address] [place] [address], [facility] HCO3 (Bld) [Moles/Vol] 28 mmol/L Normal 21-28 [facility] Comment on above: Performed By: #### 8 [id number] #### [facility] [address] [place] [address], [facility] METHB 0.8 % Normal 0.0-1.5 [facility] Comment on above: Performed By: #### 8 [id number] #### [facility] [address] [place] [address], [facility] Oxygen (Bld) [Partial pressure] 116 mm[Hg] Critically high 83-108 [facility] Comment on above: Performed By: #### 8 [id number] #### [facility] [address] [place] [address], [facility] Oxygen saturation in Blood 97.0 % Normal 94.0-97.0 [facility] Comment on above: Performed By: #### 8 [id number] #### [facility] [address] [place] [address], [facility] PCO2 36 mmHg Normal 35-45 [facility] Comment on above: Performed By: #### 8 [id number] #### [facility] [address] [place] [address], [facility] pH (Bld) 7.50 [pH] High 7.35-7.45 [facility] Comment on above: Performed By: #### 8 [id number] #### [facility] [address] [place] [address], [facility] THB 13.1 g/dL Normal 12.0-16.3 [facility] Comment on above: Performed By: #### 8 [id number] #### [facility] [address] CBC W/DIFFon 03-20-2021 ABS IMM GRANS 0.0 10*3/uL Normal 0.0-0.2 [facility] Comment on above: Performed By: #### 8 [id number] #### [facility] [address] [place] [address], [facility] ABS NEUTROPHILS 4.5 10*3/uL Normal 1.6-7.6 [facility] Comment on above: Performed By: #### 8 [id number] #### [facility] [address] [place] [address], [facility] [facility] Basophils (Bld) [#/Vol] 0.0 10*3/uL Normal 0.0-0.2 [facility] Comment on above: Performed By: #### 8 [id number] #### [facility] [address] [place] [address], [facility] Basophils/100 WBC (Bld) 0.4 % Normal 0.0-1.0 [facility] Comment on above: Performed By: #### 8 [id number] #### [facility] [address] [place] [address], [facility] Eosinophils (Bld) [#/Vol] 0.1 10*3/uL Normal 0.0-0.5 [facility] Comment on above: Performed By: #### 8 [id number] #### [facility] [address] [place] [address], [facility] Eosinophils/100 WBC (Bld) 1.2 % Normal 0.0-6.0 [facility] Comment on above: Performed By: #### 8 [id number] #### [facility] [address] Erythrocyte distribution width (RBC) [Ratio] 13.1 % Normal 11.5-15.0 [facility] Comment on above: Performed By: #### 8 [id number] #### [facility] [address] [place] [address], [facility] Hematocrit (Bld) [Volume fraction] 42.7 % Normal 36.0-45.0 [facility] Comment on above: Performed By: #### 8 [id number] #### [facility] [address] [place] [address], [facility] Hemoglobin (Bld) [Mass/Vol] 14.0 g/dL Normal 12.0-15.0 [facility] Comment on above: Performed By: #### 8 [id number] #### [facility] [address] [facility] [place] [address], [facility] IMMATURE GRANS 0.1 % Normal 0.0-1.0 [facility] Comment on above: Performed By: #### 8 [id number] #### [facility] [address] [place] [address], [facility] Lymphocytes (Bld) [#/Vol] 1.7 10*3/uL Normal 1.2-4.0 [facility] Comment on above: Performed By: #### 8 [id number] #### [facility] [address] [place] [address], [facility] Lymphocytes/100 WBC (Bld) 24.1 % Normal 20.0-45.0 [facility] Comment on above: Performed By: #### 8 [id number] #### [facility] [address] [place] [address], [facility] MCH (RBC) [Entitic mass] 30.7 pg Normal 27.0-33.0 [facility] Comment on above: Performed By: #### 8 [id number] #### [facility] [address] [place] [address], [facility] MCHC (RBC) [Mass/Vol] 32.8 g/dL Normal 32.0-35.0 [facility] Comment on above: Performed By: #### 8 [id number] #### [facility] [address] [place] [address], [facility] MCV (RBC) [Entitic vol] 93.6 fL Normal 82.0-98.0 [facility] Comment on above: Performed By: #### 8 [id number] #### [facility] [address] [place] [address], [facility] Monocytes (Bld) [#/Vol] 0.7 10*3/uL Normal 0.1-1.0 [facility] Comment on above: Performed By: #### 8 [id number] #### [facility] [address] [place] [address], [facility] MONOS 9.8 % Normal 5.0-12.0 [facility] Comment on above: Performed By: #### 8 [id number] #### [facility] [address] [place] [address], [facility] Neutrophils/100 WBC (Bld) 64.4 % Normal 40.0-72.0 [facility] Comment on above: Performed By: #### 8 [id number] #### [facility] [address] [place] [address], [facility] Nucleated RBC/100 WBC (Bld) [Ratio] 0 % Normal 0-0 [facility] Comment on above: Performed By: #### 8 [id number] #### [facility] [address] [facility] [place] [address], [facility] PLAT CNT 289 10*3/uL Normal 150-400 [facility] Comment on above: Performed By: #### 8 [id number] #### [facility] [address] [facility] [place] [id number], [facility] RBC (Bld) [#/Vol] 4.56 10*6/uL Normal 3.80-5.00 [facility] Comment on above: Performed By: #### 8 [id number] #### [facility] [address] [place] [id number], [facility] WBC (Bld) [#/Vol] 6.93 10*3/uL Normal 4.00-10.60 [facility] Comment on above: Performed By: #### 8 [id number] #### [address] CHEST AND LATERALon 03-20-20 CHEST AND LATERAL [facility] Department of Radiology [address] [place] [id number] Patient Name: THIAGO SABILLON : 1950 [...] above Electronically signed: Savannah Eubanks. Transcribed by: [email or web address], User Resident: Electronically Signed by: SAVANNAH EUBANKS @ 03/21/2021 10:05 AM Normal [facility] Comment on above: Order Comment: evalu ate COMP METABOLIC PANELon 03-20 Albumin [Mass/Vol] 4.7 g/dL Normal 3.5-5.7 [facility] Comment on above: Performed By: #### 3 0965 #### [facility] [address] [place] [address], [facility] ALKALINE PHOSPH 84 IU/L Normal 34-104 [facility] Comment on above: Performed By: #### 3 0965 #### [facility] [address] [place] [address], [place] ALT [Catalytic activity/Vol] 20 U/L Normal 7-52 [facility] Comment on above: Performed By: #### 3 0965 #### [facility] [address] [place] [address], [place] AST [Catalytic activity/Vol] 16 U/L Normal 13-39 [facility] Comment on above: Performed By: #### 3 0965 #### [facility] [address] [place] [address], [place] Bilirubin [Mass/Vol] 0.5 mg/dL Normal 0.3-1.0 [facility] Comment on above: Performed By: #### 3 0965 #### [facility] [address] [place] [address], [place] Calcium [Mass/Vol] 9.7 mg/dL Normal 8.6-10.3 [facility] Comment on above: Performed By: #### 3 0965 #### [facility] [address] [place] [address], [place] Chloride [Moles/Vol] 100 mmol/L Normal 98-107 [facility] Comment on above: Performed By: #### 3 0965 #### [facility] [address] [place] [address], [place] CO2 [Moles/Vol] 33 mmol/L High 21-31 [facility] Comment on above: Performed By: #### 3 0965 #### [facility] [address] [place] [address], [place] Creatinine [Mass/Vol] 0.64 mg/dL Normal 0.60-1.20 [facility] Comment on above: Performed By: #### 3 0965 #### [facility] [address] [place] [address], [place] GFR/1.73 sq M.predicted among blacks MDRD (S/P/Bld) [Vol rate/Area] mL/min/{1.73_m2} Normal >60 [facility] Comment on above: Performed By: #### 3 0965 #### [facility] [address] [place] [address], [place] GFR/1.73 sq M.predicted among non-blacks MDRD (S/P/Bld) [Vol rate/Area] mL/min/{1.73_m2} Normal >60 [facility] Comment on above: Performed By: #### 3 0965 #### [facility] [address] [place] [address], [place] Glucose [Mass/Vol] 87 mg/dL Normal 70-100 [facility] Comment on above: Performed By: #### 3 0965 #### [facility] [address] [place] [address], [place] Potassium [Moles/Vol] 4.3 mmol/L Normal 3.5-5.1 [facility] Comment on above: Performed By: #### 3 0965 #### [facility] [address] [place] [address], [place] Protein [Mass/Vol] 7.8 g/dL Normal 6.0-8.3 [facility] Comment on above: Performed By: #### 3 0965 #### [facility] [address] Sodium [Moles/Vol] 137 mmol/L Normal 136-145 [facility] Comment on above: Performed By: #### 3 0965 #### [facility] [address] Urea nitrogen [Mass/Vol] 26 mg/dL High 7-25 [facility] Comment on above: Performed By: #### 3 0965 #### [address] CHEST WO CONTRASTon 03-20 CT CHEST WO CONTRAST [facility] Department of Radiology [address] [place] [id number] Patient Name: THIAGO SABILLON : 1950 Sex: F Age: Race: White Pt. Location: Patient Status: D Ordered Date: 03/14/2021 9:10:00 AM Completed Date: 03/20/2021 12:38 PM Requesting Provider: CHELE SANCHEZ Attending Provider: TANA BARNETT Report Copy To: KALLIE CHASE Signs & Symptoms: I34.0 Nonrheumatic mitral (valve) insufficiency I10 History: [place] time ok per lee in [place] Comments: [...] examination. Electronically signed: Omkar Crowder. Transcribed by: [email or web address], User Resident: Electronically Signed by: OMKAR CROWDER @ 03/21/2021 01:39 PM Normal [facility] Comment on above: Order Comment: stephanie lemon on 03/22/2021 , Patient Age: 70 years old HEMOGLOBIN A1Con 03-20-2021 Glucose [Moles/Vol] 111 mmol/L Normal [facility] Comment on above: Performed By: #### 3 0965 #### [facility] [address] HbA1c (Bld) [Mass fraction] 5.5 % Normal 4.0-6.0 [facility] Comment on above: Performed By: #### 3 0965 #### [facility] [address] [place] [address], [facility] PROTHROMBIN TIMEon INR Coag (PPP) [Relative time] 0.96 {INR} Normal 0.91-1.16 [facility] Comment on above: Result Comment: ACCC P [...] 1995;[id number]. Performed By: #### 8 [id number] #### [facility] [address] [place] [address], [facility] PT Coag (PPP) [Time] 12.8 s Normal 12.3-14.8 [facility] Comment on above: Result Comment: ALL RESULTS MUST BE INTERPRETED WITH RESPECT TO BLOOD DRAWING ARTIFACT OR DILUTION ERROR OF ANTICOAGULANT AT THE TIME OF SAMPLING. Performed By: #### 8 [id number] #### [facility] [address] [place] [address], [facility] TYPE AND CROSSMATCHon 2020 ABO INTERPRETATION A Normal [facility] Comment on above: Performed By: #### 3 0738 #### [facility] [address] [place] [address], [facility] RH INTERPRETATION Positive Normal [facility] Comment on above: Performed By: #### 3 0738 #### [facility] [address] [place] [address], [facility] URINALYSIS REFLEXon 03-20-20 21 Appearance (U) CLEAR Normal CLEAR [facility] Comment on above: Performed By: #### 3 0965 #### [facility] [address] [place] [address], [place] Bilirubin Ql (U) Negative Normal NEGATIVE [facility] Comment on above: Performed By: #### 3 0965 #### [facility] [address] [place] [address], [place] Color (U) YELLOW Normal YELLOW [facility] Comment on above: Performed By: #### 3 0965 #### [facility] [address] [place] [address], [facility] EPIS NONE SEEN Normal FEW,OCC,NO NE SEEN [facility] Comment on above: Performed By: #### 3 0965 #### [facility] [address] [place] [address], [place] Glucose Ql (U) Negative Normal NEGATIVE [facility] Comment on above: Performed By: #### 3 0965 #### [facility] [address] [place] [address], [place] Hemoglobin Ql (U) Negative Normal NEGATIVE [facility] Comment on above: Performed By: #### 3 0965 #### [facility] [address] [facility] [address], [facility] KETONE Negative Normal NEGATIVE [facility] Comment on above: Performed By: #### 3 0965 #### [facility] [address] [place] [address], [facility] LEUK RAHUL Negative Normal NEGATIVE [facility] Comment on above: Performed By: #### 3 0965 #### [facility] [address] [facility] [place] [address], [facility] Nitrite Ql (U) Negative Normal NEGATIVE [facility] Comment on above: Performed By: #### 3 0965 #### [facility] [address] [facility]. [address] pH (U) 7.0 [pH] Normal 5.0-8.0 [facility] Comment on above: Performed By: #### 3 0965 #### [facility] [address] [facility]. [address] Protein Ql (U) Negative Normal NEGATIVE [facility] Comment on above: Performed By: #### 3 0965 #### [facility] [address] [facility] [place] [address], [facility] RBC 0-2 Abnormal NONE SEEN [facility] Comment on above: Performed By: #### 3 0965 #### [facility] [address] [facility]. [address] SPEC GRAV 1.020 Normal 1.015-1.02 0 [facility] Comment on above: Performed By: #### 3 0965 #### [facility] [address] [place] [address], [facility] WBC UA 0-2 Abnormal NONE SEEN [facility] Comment on above: Performed By: #### 3 0965 #### [facility] [address] Cardiovascular Lab Reporton 06-03-2021 Cardiovascular Lab Report [facility] Patient Name: Thiago Sabillon [facility] MR #: [id number] Physician: Balta Jane, Department of M.D. Medicine Service Date: 03/08/2021 Division of Birthdate: 1950 Cardiology Room #: [facility] Cardiovascular Services [address] [place] [address] Cardiovascular Laboratory Report FINAL IMPRESSIONS: 1. Dbwh-nk-kaftikom coronary artery disease. 2. Severe mitral regurgitation by transesophageal echocardiography. 3. Normal right-sided heart pressures and normal pulmonary capillary wedge pressure. 4. Normal cardiac output/cardiac index. 5. Pqui-vh-arbazhkr systemic hypertension. 6. Peripheral arterial disease evidenced [...] femoral vein and artery was obtained. A 6-Vincentian x 11 cm sheath was placed in [...] was elected to conclude the procedure. A 6-Vincentian MynxGrip closure device was deployed; however, this [...] A/Balta Jane M.D. Date Trans: 03/08/2021 02:45 P/nader [id number] cc: Balta Jane M.D. [address] [place] [address] Vital Signs Date Time Vital Sign Value Performing Clinician Facility 11-29-2024 08:52-0500 Body height 162.6 cm Braxton Canasgel [employer] Work Phone: [facility] 11-29-2024 08:52-0500 Body mass index (BMI) [Ratio] 19.57 kg/m2 Braxton Canasgel [employer] Work Phone: [facility] 11-29-2024 08:52-0500 Body weight 51.71 kg Braxton Canasgel [employer] Work Phone: [facility] 11-29-2024 08:52-0500 Diastolic blood pressure 70 mm[Hg] Braxton Singletarynagel [employer] Work Phone: [facility] 11-29-2024 08:52-0500 Systolic blood pressure 126 mm[Hg] Braxton Canasgel [employer] Work Phone: [facility] 09-14-2024 10:05-0500 Body height 161.9 cm Thaddeus Mcclendon DO Work Phone: [facility] 09-14-2024 10:05-0500 Body mass index (BMI) [Ratio] 19.03 kg/m2 Thaddeus Mcclendon DO Work Phone: [facility] 09-14-2024 10:05-0500 Body weight 49.9 kg Thaddeus Medinaer DO Work Phone: [facility] 09-14-2024 10:05-0500 Diastolic blood pressure 68 mm[Hg] Thaddeus Mcclendon DO Work Phone: [facility] 09-14-2024 10:05-0500 Systolic blood pressure 118 mm[Hg] Thaddeus Medinaer DO Work Phone: [facility] 08-09-2024 13:28-0500 Diastolic blood pressure 60 mm[Hg] Yandy Hector MD Work Phone: [facility] 08-09-2024 13:28-0500 Heart rate 66 /min Yandy Hector MD Work Phone: [facility] 08-09-2024 13:28-0500 Systolic blood pressure 98 mm[Hg] Yandy Hector MD Work Phone: [facility] 08-09-2024 [id number] Body height 163.8 cm Yandy Hector MD Work Phone: [facility] 08-09-2024 13:11-0500 Body mass index (BMI) [Ratio] 19.2 kg/m2 Yandy Hector MD Work Phone: [facility] 08-09-2024 13:11-0500 Body weight 51.53 kg Yandy Hector MD Work Phone: [facility] 07-22-2024 11:48-0400 Body height 162.56 cm MD Kallie Chase Work Phone: [facility] 07-22-2024 11:48-0400 Body mass index (BMI) [Ratio] 19.5 kg/m2 MD Kallie Chase Work Phone: [facility] 07-22-2024 11:48-0400 Body weight 51.82 kg MD Kallie Chase Work Phone: [facility] 07-22-2024 11:48-0400 Diastolic blood pressure 67 mm[Hg] MD Kallie Chase Work Phone: [facility] 07-22-2024 11:48-0400 Heart rate 52 /min MD Kallie Chase Work Phone: [facility] 07-22-2024 11:48-0400 Systolic blood pressure 114 mm[Hg] MD Kallie Chase Work Phone: [facility] 07-07-2024 11:11-0400 Body temperature 97.7 [degF] MD Kallie Chase Work Phone: [facility] 07-07-2024 11:11-0400 Diastolic blood pressure 63 mm[Hg] MD Kallie Chase Work Phone: [facility] 07-07-2024 11:11-0400 Heart rate 67 /min MD Kallie Chase Work Phone: [facility] 07-07-2024 11:11-0400 Respiratory rate 16 /min MD Kallie Chase Work Phone: [facility] 07-07-2024 11:11-0400 SaO2% (BldA) [Mass fraction] 99 % MD Kallie Chase Work Phone: [facility] 07-07-2024 11:11-0400 Systolic blood pressure 108 mm[Hg] MD Kallie Chase Work Phone: [facility] 07-07-2024 02:27-0400 Body height 162.56 cm MD Kallie Chase Work Phone: [facility] 07-07-2024 02:27-0400 Body weight 54.9 kg MD Kallie Chase Work Phone: [facility] 07-07-2024 02:04-0400 Body temperature 98.2 [degF] MD Kallie Chase Work Phone: [facility] 07-07-2024 02:04-0400 Diastolic blood pressure 51 mm[Hg] MD Kallie Chase Work Phone: [facility] 07-07-2024 02:04-0400 Heart rate 61 /min MD Kallie Chase Work Phone: [facility] 07-07-2024 02:04-0400 Respiratory rate 19 /min MD Kallie Chase Work Phone: [facility] 07-07-2024 02:04-0400 SaO2% (BldA) [Mass fraction] 99 % MD Kallie Chase Work Phone: [facility] 07-07-2024 02:04-0400 Systolic blood pressure 107 mm[Hg] MD Kallie Chase Work Phone: [facility] 07-06-2024 15:44-0400 Body height 162.56 cm MD Kallie Chase Work Phone: [facility] 07-06-2024 15:44-0400 Body weight 51.9 kg MD Kallie Chase Work Phone: [facility] 07-05-2024 17:45-0400 Diastolic blood pressure 82 mm[Hg] MD Kallie Chase Work Phone: [facility] 07-05-2024 17:45-0400 Heart rate 54 /min MD Kallie Chase Work Phone: [facility] 07-05-2024 17:45-0400 Respiratory rate 16 /min MD Kallie Chase Work Phone: [facility] 07-05-2024 17:45-0400 SaO2% (BldA) [Mass fraction] 100 % MD Kallie Chase Work Phone: [facility] 07-05-2024 17:45-0400 Systolic blood pressure 138 mm[Hg] MD Kallie Chase Work Phone: [facility] 07-05-2024 16:13-0400 Body temperature 97.1 [degF] MD Kallie Chase Work Phone: [facility] 07-05-2024 16:13-0400 Inhaled oxygen flow rate 8 L/min MD Kallie Chase Work Phone: [facility] 07-05-2024 12:50-0400 Body height 162.56 cm MD Kallie Chase Work Phone: [facility] 07-05-2024 12:50-0400 Body weight 49.2 kg MD Kallie Chase Work Phone: [facility] 06-24-2024 14:55-0400 Body height 162.56 cm MD Kallie Chase Work Phone: [facility] 06-24-2024 14:55-0400 Body mass index (BMI) [Ratio] 18.3 kg/m2 MD Kallie Chase Work Phone: [facility] 06-24-2024 14:55-0400 Body weight 48.53 kg MD Kallie Chase Work Phone: [facility] 05-14-2024 08:29-0400 Body height 162.56 cm [facility] 05-14-2024 08:29-0400 Body mass index (BMI) [Ratio] 18.3 kg/m2 [facility] 05-14-2024 08:29-0400 Body weight 48.53 kg [facility] 05-14-2024 08:29-0400 Diastolic blood pressure 58 mm[Hg] [facility] 05-14-2024 08:29-0400 Heart rate 43 /min [facility] 05-14-2024 08:29-0400 Systolic blood pressure 99 mm[Hg] [facility] 04-02-2024 11:28-0400 Body height 162.56 cm MD Kallie Chase Work Phone: [facility] 04-02-2024 11:28-0400 Body mass index (BMI) [Ratio] 18.3 kg/m2 MD Kallie Chase Work Phone: [facility] 04-02-2024 11:28-0400 Body temperature 98.7 [degF] MD Kallie Chase Work Phone: [facility] 04-02-2024 11:28-0400 Body weight 48.53 kg MD Kallie Chase Work Phone: [facility] 04-02-2024 11:28-0400 Diastolic blood pressure 71 mm[Hg] MD Kallie Chase Work Phone: [facility] 04-02-2024 11:28-0400 Heart rate 62 /min MD Kallie Chase Work Phone: [facility] 04-02-2024 11:28-0400 SaO2% (BldA) [Mass fraction] 97 % MD Kallie Chase Work Phone: [facility] 04-02-2024 11:28-0400 Systolic blood pressure 115 mm[Hg] MD Kallie Chase Work Phone: [facility] 01-16-2024 10:14-0400 Body height 162.56 cm MD Kallie Chase Work Phone: [facility] 01-16-2024 10:14-0400 Body mass index (BMI) [Ratio] 18.8 kg/m2 MD Kallie Chase Work Phone: [facility] 01-16-2024 10:14-0400 Body weight 49.89 kg MD Kallie Chase Work Phone: [facility] 12-17-2023 09:06-0400 Body height 162.56 cm [facility] 12-17-2023 09:06-0400 Body mass index (BMI) [Ratio] 18.4 kg/m2 [facility] 12-17-2023 09:06-0400 Body weight 48.76 kg [facility] 12-17-2023 09:06-0400 Diastolic blood pressure 67 mm[Hg] [facility] 12-17-2023 09:06-0400 Heart rate 69 /min [facility] 12-17-2023 09:06-0400 Systolic blood pressure 102 mm[Hg] [facility] 10-03-2023 12:55-0500 Body height 162.56 cm Jennifer Mccarthy Other [facility] 10-03-2023 12:55-0500 Body mass index (BMI) [Ratio] 18.54 kg/m2 Jennifer Mccarthy Other Located Within [facility] Other 10-03-2023 12:55-0500 Body temperature 97.1 [degF] Jennifer Mccarthy Other Located Within [facility] Other 10-03-2023 12:55-0500 Body weight 48.99 kg Jennifer Mccarthy Other Located Within [facility] Other 10-03-2023 12:55-0500 Body weight 48.98 kg [facility] 10-03-2023 12:55-0500 Diastolic blood pressure 90 mm[Hg] Jennifer Mccarthy Other [facility] 10-03-2023 12:55-0500 SaO2% (BldA) [Mass fraction] 91 % Jennifer Mccarthy Other [facility] Other 10-03-2023 12:55-0500 Systolic blood pressure 120 mm[Hg] Jennifer Mccarthy Other [facility] 05-22-2023 09:00-0400 Body height 162.56 cm Kallie Chase Other [facility] Other 05-22-2023 09:00-0400 Body mass index (BMI) [Ratio] 18.19 kg/m2 Kallie Chase Other [facility] Other 05-22-2023 09:00-0400 Body weight 48.08 kg Kallie Chase Other [facility] Other 05-22-2023 09:00-0400 Diastolic blood pressure 64 mm[Hg] Kallie Chase Other [facility] Other 05-22-2023 09:00-0400 Systolic blood pressure 117 mm[Hg] Kallie Chase Other [facility] Other 05-14-2023 08:30-0400 Body height 162.56 cm Kallie Chase Other [facility] Other 05-14-2023 08:30-0400 Body mass index (BMI) [Ratio] 18.88 kg/m2 Kallie Chase Other [facility] Other 05-14-2023 08:30-0400 Body weight 49.9 kg Kallie Chase Other [facility] Other 05-14-2023 08:30-0400 Diastolic blood pressure 67 mm[Hg] Kallie Chase Other [facility] Other 05-14-2023 08:30-0400 SaO2% (BldA) [Mass fraction] 97 % Kallie Chase Other [facility] Other 05-14-2023 08:30-0400 Systolic blood pressure 122 mm[Hg] Kallie Chase Other [facility] Other 04-23-2023 09:00-0400 Body height 162.56 cm Kallie Chase Other [facility] Other 04-23-2023 09:00-0400 Body mass index (BMI) [Ratio] 18.54 kg/m2 Kallie Chase Other [facility] Other 04-23-2023 09:00-0400 Body weight 48.99 kg Kallie Chase Other [facility] Other 04-23-2023 09:00-0400 Diastolic blood pressure 79 mm[Hg] Kallie Chase Other [facility] Other 04-23-2023 09:00-0400 Systolic blood pressure 143 mm[Hg] Kallie Chase Other [facility] Other 01-08-2023 11:00-0400 Body height 162.56 cm Vernell Alvarez II Other [facility] Other 01-08-2023 11:00-0400 Body mass index (BMI) [Ratio] 19.05 kg/m2 Vernell Kasbeer II Other [facility] Other 01-08-2023 11:00-0400 Body weight 50.35 kg Vernell Alvarez II Other [facility] Other 11-11-2022 11:45-0500 Body height 162.56 cm Kallie Chase Other [facility] Other 11-11-2022 11:45-0500 Body mass index (BMI) [Ratio] 19.05 kg/m2 Kallie Chase Other [facility] Other 11-11-2022 11:45-0500 Body weight 50.35 kg Kallie Chase Other [facility] Other 11-11-2022 11:45-0500 Diastolic blood pressure 62 mm[Hg] Kallie Chase Other [facility] Other 11-11-2022 11:45-0500 Systolic blood pressure 102 mm[Hg] Kallie Chase Other [facility] Other Encounters Encounter Date Encounter Type Care Provider Facility Start: 11-29-2024 End: 11-29-2024 Bamboo flowsheet Braxton Jacobsen [employer] Work Phone: [facility] Start: 11-29-2024 End: 11-29-2024 Bamboo flowsheet Braxton Jacobsen L[employer]STITCH CO[employer] JOINER Work Phone: [facility] Start: 11-29-2024 End: 11-29-2024 ambulatory BRAXTON JACOBSEN Not Available Start: 11-29-2024 End: 11-29-2024 Office outpatient visit 25 minutes Braxton Jacobsen [employer]ST[employer]ER Work Phone: [facility] Comment on above: Lumbosacral radiculo antony; Disturbance of skin sensation; Vitamin D deficiency; Carpal tunnel syndrome of right wrist; Carpal tunnel syndrome on left Start: 11-08-2024 End: 11-08-2024 ambulatory SANDY DAY Not Available Start: 11-08-2024 End: 11-08-2024 Office outpatient visit 10 minutes Sandy Day PA Work Phone: [facility] Comment on above: Abrasion (Primary Dx ) Start: 11-08-2024 End: 11-08-2024 Bamboo flowsheet Sandy Day PA Work Phone: [facility] Start: 11-08-2024 End: 11-08-2024 Bamboo flowsheet Sandy Day PA Work Phone: [facility] Start: 10-19-2024 End: 10-19-2024 ambulatory Kallie Chase Facility:[facility] Start: 10-14-2024 End: 10-14-2024 Bamboo flowsheet Dasia Patricia MD Work Phone: [facility] Start: 10-14-2024 End: 10-14-2024 Bamboo flowsheet Dasia Patricia MD Work Phone: [facility] Start: 10-14-2024 End: 10-14-2024 ambulatory DASIA PATRICIA Not Available Start: 10-14-2024 End: 10-14-2024 Office outpatient visit 15 minutes Dasia Patricia MD Work Phone: [facility] Comment on above: Melanocytic nevus of trunk (Primary Dx); Pilar cyst; Lentigines; History of nevus excision; History of malignant melanoma of skin; Seborrheic keratosis; Inflamed hair follicle Start: 10-01-2024 End: 10-01-2024 ambulatory Kallie Chase Facility:[facility] Start: 09-14-2024 End: 09-14-2024 ambulatory THADDEUS MCCLENDON Not Available Start: 09-14-2024 End: 09-14-2024 Patient encounter procedure Thaddeus Mcclendon DO Work Phone: [facility] Comment on above: Encounter for gyneco logical examination without abnormal finding; Encounter for Papanicolaou smear of cervix; Breast cancer screening by mammogram; Osteoporosis, post-menopausal ([facility]/HCC) Start: 09-14-2024 End: 09-14-2024 Patient encounter status Thaddeus Mcclendon DO Work Phone: [facility] Start: 08-18-2024 End: 08-18-2024 ambulatory Kallie Chase MD Work Phone: [facility] Work Phone: Start: 08-18-2024 End: 08-18-2024 Patient encounter procedure Kallie Chase MD Work Phone: [facility] Work Phone: Start: 08-18-2024 End: 08-18-2024 Patient encounter procedure Kallie Chase MD Work Phone: [facility] [place] [facility] Start: 08-18-2024 End: 08-18-2024 ambulatory Kallie Chase MD Work Phone: [facility] Work Phone: Start: 08-09-2024 End: 08-09-2024 ambulatory [facility] Start: 08-09-2024 End: 08-09-2024 Office outpatient visit 25 minutes Yandy Hector MD Work Phone: [facility] Comment on above: Encounter to discuss test results; Hospital discharge follow-up; Heart murmur; S/P mitral valve repair; Mixed hyperlipidemia; Body mass index (BMI) 19.9 or less, adult; Hard of hearing Start: 07-22-2024 End: 07-22-2024 ambulatory MD Kallie Chase Work Phone: [facility] Work Phone: Start: 07-22-2024 End: 07-22-2024 Patient encounter procedure MD Kallie Chase Work Phone: [facility] Work Phone: Start: 07-21-2024 End: 07-21-2024 ambulatory MD Kallie Chase Work Phone: [facility] Work Phone: Start: 07-21-2024 End: 07-21-2024 Patient encounter procedure MD Kallie Chase Work Phone: [facility] [place] [facility] Work Phone: Start: 07-06-2024 End: 07-07-2024 ambulatory Kallie Chase Facility:[facility] Start: 07-06-2024 End: 07-07-2024 Evaluation and management of inpatient MD Kallie Chase Work Phone: [facility] [place] [facility] Work Phone: Start: 07-05-2024 End: 07-05-2024 Admission to same day surgery center MD Kallie Chase Work Phone: [facility] [place] Start: 07-05-2024 End: 07-05-2024 ambulatory MD Kallie Chase Work Phone: [facility] Work Phone: Start: 07-05-2024 Non-patient / Non-visit MD Char Chase Work Phone: [facility] [place] [facility] Work Phone: Start: 06-25-2024 End: 06-25-2024 ambulatory MD Kallie Chase Work Phone: [facility] Work Phone: Start: 06-25-2024 End: 06-25-2024 Patient encounter procedure MD Kallie Chase Work Phone: [facility] [place] [facility] Work Phone: Start: 06-24-2024 End: 06-24-2024 Patient encounter procedure MD Kallie Chase Work Phone: [facility] [place] [facility] Work Phone: Start: 06-24-2024 End: 06-24-2024 Discharged Recurring MD Kallie Chase Work Phone: [facility] [place] Start: 06-24-2024 Registered Recurring MD Kallie Chase Work Phone: [facility] [place] Start: 06-24-2024 End: 06-24-2024 ambulatory MD Kallie Chase Work Phone: [facility] Work Phone: Start: 06-22-2024 End: 06-22-2024 Bamboo flowsheet Melody Barry DO Work Phone: [facility] Start: 06-22-2024 End: 06-22-2024 Bamboo flowsheet Melody Barry DO Work Phone: [facility] Start: 06-22-2024 End: 06-22-2024 Office outpatient visit 10 minutes Melody Barry DO Work Phone: [facility] Comment on above: Primary osteoarthrit is of right hip; Status post total hip replacement, right Start: 06-22-2024 End: 06-22-2024 ambulatory MELODY BARRY Not Available Start: 06-21-2024 End: 06-21-2024 Patient encounter procedure MD Kallie Chase Work Phone: [facility] Work Phone: Start: 06-21-2024 End: 06-21-2024 ambulatory MD Kallie Chase Work Phone: [facility] Work Phone: Start: 06-21-2024 Encounter for preprocedural laboratory examination Vernell Alvarez II [facility] Start: 05-14-2024 Preoperative state MD Kallie kothari Work Phone: [facility] Start: 05-14-2024 End: 05-14-2024 ambulatory [facility] Work Phone: Start: 05-14-2024 End: 05-14-2024 Patient encounter procedure [facility] Work Phone: Start: 05-05-2024 End: 05-05-2024 ambulatory ALEX DOSHI Not Available Start: 04-16-2024 Non-patient / Non-visit [facility] Work Phone: Start: 04-15-2024 End: 04-15-2024 ambulatory MD Kallie Chase Work Phone: [facility] Work Phone: Start: 04-15-2024 End: 04-15-2024 Patient encounter procedure MD Kallie Chase Work Phone: [facility] Work Phone: Start: 04-15-2024 End: 04-15-2024 ambulatory DASIA PATRICIA Not Available Start: 04-02-2024 End: 04-02-2024 ambulatory MD Kallie Chase Work Phone: [facility] Work Phone: Start: 04-02-2024 End: 04-02-2024 Patient encounter procedure MD Kallie Chase Work Phone: [facility] Work Phone: Start: 01-16-2024 End: 01-16-2024 ambulatory MD Kallie Chase Work Phone: [facility] Work Phone: Start: 01-16-2024 End: 01-16-2024 Patient encounter procedure MD Kallie Chase Work Phone: [facility] [place] [facility] Work Phone: Start: 01-07-2024 Non-patient / Non-visit MD Char Chase Work Phone: [facility] Work Phone: Start: 12-17-2023 End: 12-17-2023 ambulatory [facility] Work Phone: Start: 12-17-2023 End: 12-17-2023 Patient encounter procedure [facility] Work Phone: Start: 12-15-2023 Non-patient / Non-visit [facility] Work Phone: Start: 12-04-2023 Non-patient / Non-visit [facility] Work Phone: Start: 11-18-2023 Chart abstracting Melody villavicencio DO Work Phone: [facility] Start: 11-18-2023 End: 11-18-2023 Office outpatient visit 10 minutes Melody Barry DO Work Phone: [facility] Comment on above: Primary osteoarthrit is of right hip (Primary Dx); Status post total hip replacement, right Start: 10-03-2023 End: 10-03-2023 ambulatory Jennifer Mccarthy Other [facility] Other Start: 10-03-2023 Office outpatient vi sit 10 minutes Jennifer Mccarthy [facility] [place] Start: 10-03-2023 End: 10-03-2023 Patient encounter procedure [facility] [place] Work Phone: Start: 08-19-2023 End: 08-19-2023 ambulatory MD Kallie Chase Work Phone: [facility] Work Phone: Start: 08-19-2023 End: 08-19-2023 Patient encounter procedure MD Kallie Chase Work Phone: [facility] [address] Work Phone: Start: 05-22-2023 End: 05-22-2023 ambulatory Kallie Chase Other [employer] Other Start: 05-22-2023 Encounter for other preprocedural examination Kallie Chase [facility] Start: 05-22-2023 Office outpatient vi sit 15 minutes Kallie Chase [facility] Start: 05-15-2023 End: 05-15-2023 ambulatory Kallie Chase Other [employer] Other Start: 05-15-2023 Telephone encounter Kallie Chase [facility] Start: 05-14-2023 End: 05-14-2023 ambulatory Kallie Chase Other [employer] Other Start: 05-14-2023 Office outpatient vi sit 15 minutes Kallie Chase [facility] Start: 04-25-2023 End: 04-25-2023 ambulatory [facility] Start: 04-25-2023 End: 04-25-2023 Encounter for other preprocedural examination [facility] Start: 04-23-2023 End: 04-23-2023 ambulatory Kallie Chase Other [employer] Other Start: 04-23-2023 Office outpatient vi sit 15 minutes Kallie Chase [facility] Start: 04-11-2023 End: 04-11-2023 ambulatory Kallie Chase Other [employer] Other Start: 04-11-2023 Telephone encounter Kallie Chase [facility] Start: 03-07-[address] KALLIE CHASE Facil ity:[facility] Start: 01-08-2023 Office outpatient ne w 45 minutes Vernell Alvarez II [facility] [place] [facility] Start: 01-08-2023 End: 01-08-2023 ambulatory MD Kallie Chase Work Phone: [employer] Other Start: 01-08-2023 End: 01-08-2023 Patient encounter procedure MD Kallie Chase Work Phone: [facility] [place] [facility] Start: 11-11-2022 End: 11-11-2022 ambulatory Kallie Chase Other [employer] Other Start: 11-11-2022 Office outpatient vi sit 15 minutes Kallie Chase [facility] Start: [address] KALLIE CHASE Facil ity:[facility] Start: 09-13-2022 End: 09-13-[address] KALLIE CHASE Facility:[facility] Start: 08-05-2022 Adult health examination Serena Chase Other [employer] Other Start: 08-05-2022 Encounter for genera l adult medical examination without abnormal findings Kallie Chase Other [employer] Other Start: 06-12-2022 End: 06-13-[address] DEJON IRBY Facility:[facility] Start: 05-23-2022 End: 05-24-[address] KALLIE CHASE Facility:[facility] Start: 05-20-2022 End: 05-21-[address] BALTA JANE Facility:[facility] Start: 04-24-2022 End: 04-25-[address] KALLIE CHASE Facility:[facility] Start: 08-10-2021 End: 08-10-2021 Encounter for other preprocedural examination Kallie Chase Other [facility] Other Start: 08-10-2021 End: 08-10-2021 Pre-procedure evaluation check Kallie Chase Other [employer] Other Start: 03-22-2021 End: 03-27-2021 Evaluation and management of inpatient KALLIE CHASE Facility:[facility] Start: 03-14-2021 End: 04-03-2021 ambulatory REFERRED SELF Facility:[facility] Start: 02-27-2021 End: 07-09-2021 ambulatory REFERRED SELF Facility:[facility] Start: 02-21-2021 Encounter for gynecological examination (general) (routine) with abnormal findings Kallie Chase Other [employer] Other Start: 05-19-2021 Gynecological examin ation abnormal Kallie Chase Other Located [facility] Other Procedures Date Procedure Procedure Detail Performing Clinician Start: 08-18-2024 Plain X-ray of left hip Kallie Chase MD Work Phone: Start: 07-07-2024 Doppler ultrasonogra phy of bilateral carotid arteries MD Kallie Chase Work Phone: Start: 07-06-2024 CT of head without contrast MD Kallie Chase Work Phone: Start: 07-06-2024 Plain chest X-ray MD Ragini Chase Work Phone: Start: 07-05-2024 End: 07-05-2024 Plain X-ray of left hip MD Kallie Chase Work Phone: Start: 07-05-2024 Total replacement of left hip joint MD Kallie Chase Work Phone: Start: 06-22-2024 Radex hip unilateral with pelvis 2-3 views Melody Barry DO Work Phone: Start: 06-21-2024 Antibody screen Vernell Alvarez II Comment on above: Order Comment: Name Collection Type:: Voided Result Comment: PERF ORMED BY: [address] [place] [address] PATHOLOGIST WEIGHING STATION OPERATOR KRISTINA ENNIS M.D. Order Comment: Date of Surgery: [id number] Start: 01-16-2024 Plain X-ray of left hip MD Kallie Chase Work Phone: Start: 11-18-2023 Radex hip unilateral with pelvis 2-3 views Melody Barry DO Work Phone: Start: 01-08-2023 Plain X-ray of right hip MD Kallie Chase Work Phone: Start: 03-22-2021 COMPUTER ASSISTED PROCEDURE OF TRUNK REGION CHELE SANCHEZ Start: 03-22-2021 EXCISION OF MITRAL V ALVE, PERCUTANEOUS APPROACH CHELE SANCHEZ Start: 03-22-2021 INTRODUCE OF OTH THE RAP SUBST INTO RESP TRACT, VIA OPENING CHELE LANDINROOR Start: 03-22-2021 INTRODUCTION OF OTH THERAP SUBST [...] above: Performed By: #### [address] [id number] #### [place] [address], [facility] Start: 07-14-2017 Screening for malign ant neoplasm of colon Kallie Chase Other Start: 10-31-2014 Removal of suture Serena Chase Other H/O: surgery History of nevus excision Dasia Patricia MD Work Phone: End: 02-13-2021 Screening for malignant neoplasm of breast Kallie Salvatore Other Screening for malign ant neoplasm of skin Kallie Salvatore Other Screening for osteoporosis M frank Salvatore Other Plan of Treatment Date Care Activity Detail Author Start: 11-28-2025 End: 11-28-2025 Patient encounter procedure 11/28/2025 8:30 AM EST Office Visit [facility] [address] [place] [address] Braxton Jacobsen, LOCKSTITCH COAT JOINER [address], [facility] [address] [place] [address] [facility] Start: 09-19-2025 End: 09-19-2025 Patient encounter procedure 09/19/2025 9:30 AM EST Office Visit [facility] [address] [place] [address] Thaddeus Mcclendon, DO [address] [place] [address] [facility] Start: 08-15-2025 End: 08-15-2025 Patient encounter procedure 08/15/2025 1:00 PM EST Office Visit [facility] [address] [facility] [address] [place] [address] Yandy Hector MD [address] [facility] [address] [place] [address] [facility] Start: 06-28-2025 End: 06-28-2025 Patient encounter procedure 06/28/2025 9:00 AM EDT Office Visit [facility] [address] [place] [address] Melody Barry DO [address] [place] [address] [facility] Start: 06-21-2025 End: 06-21-2025 Patient encounter procedure 06/21/2025 11:00 AM EDT Office Visit [facility] [address] [place] [phone] Dasia Patricia MD [address] [place], [place] [id number] [facility] Start: 03-07-2025 Screening for osteoporosis Bone Density Scan [facility] Start: 11-29-2024 End: 11-29-2024 Patient encounter procedure 11/29/2024 8:30 AM EST Office Visit [facility] [address] [place] [phone] Braxton Jacobsen, LOCKSTITCH COAT JOINER [address], [facility] [address] [place] [phone] [facility] Start: 11-01-2024 End: 11-01-2024 Patient encounter procedure 11/01/2024 10:40 AM EST Office Visit [facility] [address] [place] [address] Alex Doshi MD [address] [facility] [address] [address] [facility] Start: 10-14-2024 End: 10-14-2024 Patient encounter procedure 10/14/2024 1:20 PM EST Office Visit [facility] [address] [place] [address] Dasia Patricia MD [address] [place] [address] [facility] Start: 09-14-2024 End: 09-14-2024 Patient encounter procedure 09/14/2024 10:00 AM EST Office Visit [facility] [address] [place] [address] Thaddeus Mcclendon DO [address] [place] [address] [facility] Start: 08-18-2024 Plain X-ray of left hip XR hip LT min 2V(w/wo pelvis)* [facility] Start: 08-18-2024 XR Hip - left 2 Views F [facility] Start: 08-09-2024 End: 08-09-2025 Comprehensive metabolic 2000 panel - Serum or Plasma Comprehensive Metabolic Panel Lab Routine Mixed hyperlipidemia Expected: 08/09/2024 (Approximate), Expires: 08/09/2025 [facility] Work Phone: Comment on above: Expected: 08/09/2024 (Approximate), Expires: 08/09/2025 Start: 08-09-2024 End: 08-09-2025 Lipid 1996 panel - Serum or Plasma Lipid Panel Lab Routine Mixed hyperlipidemia Expected: 08/09/2024 (Approximate), Expires: 08/09/2025 [facility] Service Area Work Phone: Comment on above: Expected: 08/09/2024 (Approximate), Expires: 08/09/2025 Start: 07-16-2024 [facility] Start: 07-15-2024 [facility] Start: 07-14-2024 [facility] Start: 07-13-2024 [facility] Start: 07-12-2024 [facility] Start: 07-11-2024 [facility] Start: 07-10-2024 [facility] Start: 07-09-2024 [facility] Start: 07-08-2024 [facility] Start: 07-07-2024 End: 07-07-2024 [facility] Start: 07-07-2024 Doppler ultrasonogra phy of bilateral carotid arteries US carotid doppler BI [facility] Start: 07-07-2024 US.doppler Carotid arteries - bilateral [facility] Start: 07-06-2024 Physical therapy procedure [facility] Start: 07-06-2024 Referral to occupati onal therapist [facility] Start: 07-06-2024 Hospital admission [facility] Start: 07-06-2024 [facility] Start: 07-05-2024 Hospital admission [facility] Start: 07-05-2024 XR Hip - left GE 2 Views [facility] Start: 07-05-2024 End: 07-05-2024 Plain X-ray of left hip [facility] Start: 07-05-2024 XR Hip - left 2 Views F [facility] Start: 07-05-2024 End: 07-05-2024 [facility] Start: 06-22-2024 End: 06-22-2024 Patient encounter procedure 06/22/2024 9:30 AM EDT Office Visit [facility] [address] [facility] [address] [place] [address] Melody Barry, [address] [facility] [address] [place] [address] Primary osteoarthritis of right hip; Status post total hip replacement, right [facility] Comment on above: Primary osteoarthrit is of right hip; Status post total hip replacement, right Start: 06-21-2024 [facility] Start: 06-08-2024 End: 06-08-2024 Patient encounter procedure 06/08/2024 9:15 AM EDT Office Visit [facility] [address] [place] [address] Melody Barry, DO [address] [place] [address] [facility] Start: 06-06-2024 COVID-19 Vaccine ( season) COVID-19 Vaccine () [facility] Start: 06-06-2024 Influenza vaccination Influenza Vacc ine (#1) [facility] Start: 04-15-2024 End: 04-15-2024 Patient encounter procedure 04/15/2024 1:30 PM EDT Office Visit [facility] [address] [place] [phone] Dasia Patricia MD [address] [place] [address] [facility] Start: 01-16-2024 Plain X-ray of left hip XR hip LT min 2V(w/wo pelvis)* [facility] Start: 01-16-2024 XR Hip - left 2 Views F [facility] Start: 12-18-2023 Patient referral [facility] Work Phone: Start: 11-18-2023 End: 11-18-2023 Patient encounter procedure 11/18/2023 11:00 AM EST Office Visit [facility] [address] [place] [id number] Melody Barry, DO [address] [place] [address] [facility] Start: 02-26-2022 Zoster Vaccines (3 of 3) Zoste r Vaccines (3 of 3) [facility] Start: 10-22-2018 Pneumococcal Vaccine : 65+ Years (2 of 2 - PCV) Pneumococcal Vaccine: 65+ Years (2 of 2 - PCV) [facility] Start: 2010 RSV High Risk: (Elde rly (60+) or Population) (1 - Risk 60-74 years 1-dose series) RSV High Risk: (Elderly (60+) or Population) (1 - Risk 60-74 years 1-dose series) [facility] Start: 1990 Screening for malign ant neoplasm of breast Mammogram [facility] Start: 1972 DTaP/Tdap/Td Vaccine s (1 - Tdap) DTaP/Tdap/Td Vaccines (1 - Tdap) [facility] Start: 1968 Hepatitis C screening Hepatitis C Sc reening [facility] Start: 1950 Lipid panel Lipid Panel [facility] Start: 1950 Medicare Annual Well ness Visit Medicare Annual Wellness Visit (AWV) [facility] Start: 1950 Screening for malign ant neoplasm of colon [facility] Start: 1950 Thyroid stimulating hormone measurement TSH Level [facility] Anion gap measurement [facility] Basophils [#/volume] in Blood by Automated count [facility] Basophils/100 leukoc ytes in Blood by Automated count [facility] Eosinophils/100 leukocytes in Blood by Automated count [facility] Erythrocyte distribu tion width [Ratio] by Automated count [facility] Erythrocytes [#/volu me] in Blood [facility] Hematocrit [Volume Fraction] of Blood [facility] Hemoglobin [Mass/vol ume] in Blood [facility] Hemoglobin [Mass/vol ume] in Blood [facility] IGP,rfxAptima HPV all,16/18,45 IGP,rfxAptima HPV all,16/18,45 Pathology and Cytology Routine Encounter for Papanicolaou smear of cervix Ordered: 09/14/2024 [facility] Work Phone: Comment on above: Ordered: 09/14/2024 Leukocytes [#/volume ] corrected for nucleated erythrocytes in Blood by Automated coun [facility] Leukocytes [#/volume ] in Blood [facility] Lymphocytes [#/volum e] in Blood by Automated count [facility] Lymphocytes/100 leukocytes in Blood by Automated count [facility] MCH [Entitic mass] b y Automated count [facility] MCHC [Mass/volume] b y Automated count [facility] MCV [Entitic volume] by Automated count [facility] Methicillin resistan t Staphylococcus aureus [Presence] in Unspecified specimen by Organism specific culture [facility] Monocytes [#/volume] in Blood by Automated count [facility] Monocytes/100 leukoc ytes in Blood by Automated count [facility] Neutrophils [#/volum e] in Blood by Automated count [facility] Neutrophils/100 leukocytes in Blood by Automated count [facility] Nucleated erythrocyt es [Presence] in Blood by Automated count [facility] Patient Education [facility] Work Phone: Patient referral [facility] Work Phone: Platelet mean volume [Entitic volume] in Blood by Automated count [facility] Platelets [#/volume] in Blood [facility] Immunizations Immunization Date Immunization Notes Care Provider Nuvia torres 01-01-2022 zoster vaccine recombinant Melody Barry DO Work Phone: [facility] 12-31-2021 zoster vaccine, live Kallie Chase Other [facility] 09-24-2021 zoster vaccine recombinant Melody Jhonny DO Work Phone: [facility] 09-24-2021 zoster vaccine, live Kallie Chase Other [facility] 10-22-2017 pneumococcal polysaccharide vaccine, 23 valent Melody Barry DO Work Phone: [facility] 02-12-2012 zoster vaccine, live Melody luo DO Work Phone: [facility] Healthcare Payers Date Payer Category Payer Self-pay [id number] 2023 Medicaid [employer] MEDICARE A DVANTAGE [id number] 2021 Medicare [id number] 2021 Medicare (Managed Care) [employer] MEDICARE [id number] 1959 Medicare [id number] 2.16.840.1.686311.19 1950 Unknown [id number] 2.16.840.1.997449.3.579.2. 647 1950 Unknown [id number] 2.16.840.1.723167.3.579.2. 647 1950 Unknown [id number] 2.16.840.1.438667.3.579.2. 647 1950 Unknown [id number] 2.16.840.1.954493.3.579.2. 593 1950 Unknown [id number] 2.16.840.1.193351.3.579.2. 593 1950 Unknown [id number] 2.16.840.1.645315.3.579.2. 593 1950 Unknown [id number] 2.16.840.1.032155.3.579.2. 593 1950 Unknown [id number] 2.16.840.1.830164.3.579.2. 593 1950 Unknown [id number] 2.16.840.1.552765.3.579.2. 593 1950 Unknown [id number] 2.16.840.1.250343.3.579.2. 593 1950 Unknown [id number] 2.16.840.1.224306.3.579.2. 1244 1950 Unknown [id number] 2.16.840.1.516429.3.579.2. 718 1950 Unknown [id number] 2.16.840.1.415334.3.579.2. 1259 1950 Unknown [id number] 2.16.840.1.214637.3.579.2. 1259 1950 Unknown [id number] 2.16.840.1.808152.3.579.2. 1259 1950 Unknown [id number] 2.16.840.1.045090.3.579.2. 1259 1950 Unknown [id number] 2.16.840.1.000078.3.579.2. 1259 1950 Unknown [id number] 2.16.840.1.762429.3.579.2. 1259 1950 Unknown [id number] 2.16.840.1.055861.3.579.2. 1259 1950 Unknown [id number] 2.16.840.1.664072.3.579.2. 1259 Private Health Insurance MEB LGPFX Unknown [facility] [place] [id number] Unknown [id number] 2.16.840.1.539874.3.579.2. 531 Unknown [id number] 2.16.840.1.775099.3.579.2. 531 Unknown [id number] 2.16.840.1.881322.3.579.2. 531 Unknown [id number] 2.16.840.1.949762.3.579.2. 531 Unknown [id number] 2.16.840.1.041651.3.579.2. 531 Unknown [id number] 2.16.840.1.308261.3.579.2. 531 Unknown [id number] 2.16.840.1.829088.3.579.2. 531 Social History Date Type Detail Facility Unknown if ever smoked [facility] Other Start: 07-29-2023 End: 09-14-2024 Sex Assigned At [facility] Other Start: 1950 Sex Assigned At Female F [facility] Start: 02-18-2023 End: 07-07-2024 Tobacco smoking status [facility] Never smoked tobacco [facility] Start: 02-18-2023 End: 08-04-2023 Tobacco use and exposure Smokeless tobacco non-user [facility] Start: 10-21-2023 End: 11-08-2024 Alcohol intake Ex-drinker (finding) [facility] Start: 07-29-2023 End: 09-14-2024 History of Social function [facility] How [...] At Not on file [facility] Start: 08-09-2024 Alcoholic beverage intake Current drinker of alcohol (finding) [facility] Work Phone: Start: 08-04-2023 Alcohol Comment social [facility] Work Phone: Start: 07-30-2024 End: 08-09-2024 Exposure to SARS-CoV-2 (event) Not sure [facility] Start: 08-18-2024 End: 08-19-2024 Sex Female (finding) [facility] Medical Equipment Procedure Code Equipment Code Equipment Origin al Text Equipment Identifier Dates Arthroplasty, hip, total, anterior approach Acetabular shell [id number] FDA Start: 07-05-2024 Arthroplasty, hip, total, anterior approach Orthopaedic bone screw, non-bioabsorbable, sterile ()[id number] FDA Start: 07-05-2024 Arthroplasty, hip, total, anterior approach Orthopaedic bone screw, non-bioabsorbable, sterile ()[id number] FDA Start: 07-05-2024 Arthroplasty, hip, total, anterior approach Ceramic femoral head prosthesis ()[id number] FDA Start: 07-05-2024 Arthroplasty, hip, total, anterior approach Coated hip femur prosthesis, modular ()[id number] FDA Start: 07-05-2024 Arthroplasty, hip, total, anterior approach Non-constrained polyethylene acetabular liner [id number] FDA Start: 07-05-2024 Goals Date Patient Goal Desired Activity /State Functional Status Date Assessment Result Facility 07-07-2024 Functional status Patient at Baseline [facility] Work Phone: Mental Status Date Assessment Result Facility 07-07-2024 Cognitive function Cognitive Sta tus Patient at Baseline [facility] Work Phone: Clinical Notes 03-06-2021 to 11-29-2024 Braxton Jacobsen NP - 11/29/2024 8:30 AM ARINA Restrepo - 11/08/2024 2:20 PM Deidra Patricia MD - 10/14/2024 1:20 PM María Purdy MA - 09/14/2024 10:00 AM EST Note Date & Type Note Facility 11-29-2024 History of Present illness Narrative Images from the original note were not included. CHIEF COMPLAINT REASON FOR VISIT: Patient is here today for follow-up of the diagnosis below. HPI: NEUROPATHY -Doing well -No cramping -Sleeping OK -Balance is poor, no falls -Denies N/T or pain HEADACHES -She states she does have headaches from the eyes. She states her pain levels are down. She has been pretty good. -She states that she is still having increased eye pressure in the left eye. She does have some macular No recent WOOD BACK PAIN -Tolerable -Intermittent -Noted more when she is active a lot -Had PT -No radicular pain CTS -Not as much N/T. Noted more when its cold -Not wearing splints -Not dropping things as much CURRENT MEDICATIONS: ALLERGIES/DISCONTINUE MEDICATIONS Current Outpatient Medications Medication Instructions ASPIRIN 81 MG chewable tablet Every 24 hours atorvastatin (Lipitor) 80 MG tablet Every 24 hours biotin 40 mg, Oral, Daily Calcium Citrate-Vitamin D 315-5 MG-MCG tablet 2 tablets clindamycin (Cleocin) 300 MG capsule TAKE 2 CAPSULES BY MOUTH 1 TIME FOR 1 DOSE 30-60 MINS BEFORE DENTAL PROCEDURE WITH FOOD denosumab (Prolia) 60 MG/ML solution prefilled syringe EVERY 6 MONTHS dexAMETHasone (Decadron) 2 MG tablet Every 24 hours ergocalciferol (VITAMIN D-2) 1.25 mg, Oral, Weekly folic acid (FOLVITE) 1 mg, Oral, Daily Glucosamine 500 MG capsule Every 24 hours Ketoprofen 10 % cream 1 application , Topical, Every 8 hours L-METHYLFOLATE CALCIUM PO 1 tablet, Daily RT S-Lkorfuulqkks-Nhsrk-B12-B6 (Metanx) 3-90.314-2-35 MG capsule 1 capsule, Oral, Daily levothyroxine (Synthroid, Levoxyl) 50 MCG tablet Every 24 hours magnesium oxide (MAG-OX) 400 mg, Oral, Nightly Melatonin 2.5 MG chewable tablet Chew. Menaquinone-7 (Vitamin K2) 100 MCG capsule Daily Misc Natural Products (YumVs Beet Root-Tart Diallo) 250-0.5 MG chewable tablet Chew. Multiple Vitamins-Minerals (Ocular Vitamins) tablet take 2 tablet by oral route naproxen (Naprosyn) 250 MG tablet Take by mouth. omega-3 (Fish Oil) 1000 MG capsule 1 capsule, Every 24 hours sodium flouride (Prevident, Cavarest) 1.1 % dental gel USE DIRECTED TWICE A DAY tiZANidine (Zanaflex) 4 MG tablet TAKE ONE-HALF TO ONE TABLET BY MOUTH AT BEDTIME Turmeric (QC Tumeric Complex) 500 MG capsule Every 24 hours valACYclovir (Valtrex) 1 g tablet Take 2 tablets twice a day x 1 day at first start of outbreak Vitamin E 45 MG (100 UNIT) capsule 1 capsule, Oral, Daily zinc gluconate 50 mg, Daily RT Allergies Allergen Reactions Cephalexin Other Reaction(s): weakness in legs Cephalosporins Other Reaction(s): Hives Medications Discontinued During This Encounter Medication Reason S-Uheldozeufdt-Bvqtr-B12-B6 (Metanx) 3-90.314-2-35 MG capsule Reorder folic acid (Folvite) 1 MG tablet Reorder ergocalciferol (Vitamin D-2) 1.25 MG (56275 UT) capsule Reorder magnesium oxide (Mag-Ox) 400 MG tablet Reorder biotin 10 MG tablet Reorder Ketoprofen 10 % cream Reorder Vitamin E 45 MG (100 UNIT) capsule Reorder PAST MEDICAL HISTORY: SURGICAL/SOCIAL/FAMILY HISTORY DEPRESSION SCREEN: Past Medical History: Diagnosis Date Carpal tunnel syndrome of left wrist Endometrial hyperplasia Fascial defect Fibromyalgia Heart murmur Melanoma (CMS/HCC) Neuralgia and neuritis, unspecified Other intervertebral disc degeneration, lumbosacral region Paresthesia Radiculopathy Spondylosis Past Surgical History: Procedure Laterality Date CARPAL TUNNEL RELEASE Right 11/26/2022 with RT trigger finger release, Dr Davis CT ANGIOGRAM ABDOMEN PELVIS 06/12/2022 CT ANGIOGRAM ABDOMEN PELVIS HERNIA REPAIR HYSTEROSCOPY 07/2021 D+C - Dr. Bernabe at [facility] FOR THE FEEBLE-MINDED MITRAL VALVE REPAIR 03/2021 PELVIC LAPAROSCOPY age 21 TOTAL HIP ARTHROPLASTY Right 06/04/2023 Dr Barry TOTAL HIP ARTHROPLASTY Left 06/2024 Dr. Alvarez Social History Tobacco Use Smoking status: Never Smokeless tobacco: Never Vaping Use Vaping status: Never Used Substance Use Topics Alcohol use: Not Currently Drug use: Never Family History Problem Relation Name Age of Onset Kidney disease Mother Diabetes Mother Hypertension Mother Stroke Father Multiple myeloma Neg Hx Depression: Not at risk (09/14/2024) PHQ-2 PHQ-2 Score: 0 REVIEW OF SYMPTOMS: Review of Systems Constitutional: Negative for chills, fatigue and fever. HENT: Negative for trouble swallowing. Eyes: Negative for photophobia and visual disturbance. Respiratory: Negative for cough and shortness of breath. Cardiovascular: Negative for chest pain and palpitations. Gastrointestinal: Negative for abdominal pain, nausea and vomiting. Genitourinary: Negative for difficulty urinating. Musculoskeletal: Positive for back pain. Negative for arthralgias, myalgias, neck pain and neck stiffness. Neurological: Positive for weakness. Negative for tremors, light-headedness and numbness. Psychiatric/Behavioral: Negative for agitation, confusion and sleep disturbance. OBJECTIVE: 11/29/2024 8:52 AM 09/14/2024 10:05 AM 05/05/2024 8:38 AM Vitals BMI 19.57 kg/m2 19.03 kg/m2 18.66 kg/m2 BSA (m2) 1.53 m2 1.5 m2 1.47 m2 Systolic 126 118 112 Diastolic 70 68 72 Height (in) 5' 4 5' 3.75 5' 3.5 Weight (lb) 114 110 107 Visit Report Report Report Report EXAM: Neurological Exam Mental Status Awake, alert and oriented to person, place and time. Oriented to person, place and time. Recent and remote memory are intact. Speech is normal. Language is fluent with no aphasia. Attention and concentration are normal. Cranial Nerves CN II: Visual douglas full to confrontation. CN III, IV, : Extraocular movements intact bilaterally. Normal lids and orbits bilaterally. Pupils equal round and reactive to light bilaterally. CN V: Facial sensation is normal. CN VII: Full and symmetric facial movement. CN VIII: Hearing is normal. CN XII: Tongue midline without atrophy or fasciculations. Motor Normal muscle bulk throughout. Normal muscle tone. Strength is 5/5 throughout all four extremities. Sensory Light touch is normal in upper and lower extremities. Temperature is normal in upper and lower extremities. Vibration abnormality: Decreased in BLE in the great toe. Sensation: Positive Tinel bilaterally. Reflexes Right Left Brachioradialis 2+ 2+ Biceps 2+ 2+ Patellar 2+ 2+ Achilles 2+ 2+ Right pathological reflexes: Reynaldo's absent. Left pathological reflexes: Reynaldo's absent. Coordination Right: Zeksgu-ye-nxuv normal. Rapid alternating movement normal.Left: Bvahwq-is-lttd normal. Rapid alternating movement normal. Gait Romberg is absent. Unsteady. PROCEDURE: NONE ASSESSMENT AND PLAN: EVALUATION: 05/2023 TSH 0.77, F T4 1.11, BMP NML, CBC NML 01/2022 MRI L Spine L4-5 marked central canal and moderate bilateral foramen narrowing secondary to disc bulging and mild degenerative facet arthropathy likely contributing to patient's symptoms 08/2021 EMG RUE and RLE - mild S1 raduclopathy Assessment: Lumbosacral radiculopathy She has a long history of chronic back pain with multilevel DDD on MRI as above. She is doing well currently with intermittent flare ups but tolerable;e overall. PT did offer benefit. Disturbance of skin sensation She has intermittent paresthesias in the distal LE consistent with a peripheral neuropathy. In 2020 she had an EMG theat showed a mild S1 radiculopathy which can contribute to sensory changes in the feet as well. Overall much improved on current regimen of vitamins. Vitamin D deficiency Supplemented Carpal tunnel syndrome bilaterally Minimal symptoms. Positive Tinel sign bilaterally. Would recommend continued use f splints for prevention Diagnoses and all orders for this visit: Lumbosacral radiculopathy - I-Pldrnjzntsjj-Ynlfs-B12-B6 (Metanx) 3-90.314-2-35 MG capsule; Take 1 capsule by mouth Daily - Ketoprofen 10 % cream; Apply 1 application topically every 8 (eight) hours - biotin 10 MG tablet; Take 4 tablets (40 mg) by mouth Daily - magnesium oxide (Mag-Ox) 400 MG tablet; Take 1 tablet (400 mg) by mouth at bedtime - folic acid (Folvite) 1 MG tablet; Take 1 tablet (1 mg) by mouth Daily Disturbance of skin sensation - W-Tfwwarorrfco-Cznsl-B12-B6 (Metanx) 3-90.314-2-35 MG capsule; Take 1 capsule by mouth Daily - Vitamin E 45 MG (100 UNIT) capsule; Take 1 capsule by mouth Daily - biotin 10 MG tablet; Take 4 tablets (40 mg) by mouth Daily Vitamin D deficiency - ergocalciferol (Vitamin D-2) 1.25 MG (77705 UT) capsule; Take 1 capsule (1.25 mg) by mouth 1 (one) time per week Carpal tunnel syndrome of right wrist - biotin 10 MG tablet; Take 4 tablets (40 mg) by mouth Daily Carpal tunnel syndrome on left - biotin 10 MG tablet; Take 4 tablets (40 mg) by mouth Daily Plan: Continue folic acid (Folvite) 1 MG tablet; Take 1 tablet (1 mg) by mouth Daily Continue magnesium oxide (Mag-Ox) 400 MG tablet; Take 1 tablet (400 mg) by mouth at bedtime Continue Ketoprofen 10 % cream; Apply 1 application topically every 8 (eight) hours Continue G-Xyfdcgworwxd-Wvenz-B12-B6 (Metanx) 3-90.314-2-35 MG capsule; Take 1 capsule by mouth Daily Continue ergocalciferol (Vitamin D-2) 1.25 MG (87964 UT) capsule; Take 1 capsule (1.25 mg) by mouth 1 (one) time per week Recommend using splints for CTS Will repeat Vit D and neuropathy panel next time I will see the patient back in 1 year, or sooner if needed, to make further recommendations documented in this encounter [facility] 11-08-2024 History of Present illness Narrative Lesion Location: left cheek Duration: noticed last Friday11/05/2024 Quality: denies pain, denies itch Associated symptoms: brown, rough Treatments: none Established patient of Dasia Patricia MD. Was just seen 10/14/24 for FBSE (has history of MM on the left upper arm) All pertinent medical history, medications, and allergies were reviewed. General Exam: alert, oriented to person, place, and time, normal affect, well appearing A focused exam completed based on patient reported problems, see below: 1. Abrasion Left Buccal Cheek Linear hyperpigmention. No concerning features Reassurance given. Patient to keep future skin exams as scheduled due to history Next Visit: as scheduled documented in this encounter [facility] 10-19-2024 Note PROCEDURE: XR Bone L ength Studies Scanograms COMPARISON: None. HISTORY: UNEQUAL LIMB LENGTH FINDINGS: BONES:No acute fracture or dislocation. Bilateral total hip arthroplasty. Left genu varum measuring 20 degrees. SOFT TISSUES:Extensive calcific atherosclerosis. No visible soft tissue swelling. EFFUSION:None visible. OTHER: The right leg measures 835 mm from the head of the femoral stem component to the tibial plafond. The left leg measures 841 mm from the head of the femoral stem component to the tibial plafond IMPRESSION: The left leg is 6 mm longer than the right Final Dictated by: Brodie Epps MD Dictated DT/TM: 10/20/24 7:26 Signed (Electronic Signature): Brodie Epps MD 10/20/24 7:32 am Technologist: RANDI ELAM [facility] 10-14-2024 History of Present illness Narrative Skin Check Location: Patient requests a full body skin examination Dermatologic history: history of Actinic Keratosis, history of atypical mole(s) Last visit: 6 months ago Melanoma History: Date of Melanoma Dx: 01/23/2015 Melanoma Details: Type malignant melanoma Breslow's Depth 0.42mm Mitotic rate 0/mm squared Ulceration Ulceration Not Present Melanoma Treatment: Type Wide excision Location: Left upper arm Established patient All pertinent medical history, medications, and allergies were reviewed. General Exam: alert, oriented to person, place, and time, normal affect, well appearing Unaccompanied Areas not examined despite medical recommendation: From the waist down Scalp, Examined , exam limited by hair Right leg Examined Head, Face Examined Left leg Examined Neck Examined Right foot Examined Chest Examined Left foot Examined Back Examined Buttocks Examined Abdomen Examined Digits,nails: Examined Right arm Examined Left arm Examined Lymphatics: Examined Hands Examined no cervical lymphadenopathy, no supraclavicular lymphadenopathy, no axillary lymphadenopathy 1. Melanocytic nevus of trunk Scattered benign appearing, regular brown to light brown melanocytic papules and macules with similar morphology Counseled regarding these benign growths. Rarely, a nevus can develop into malignant melanoma, so any changing nevi should be promptly re-evaluated. 2. Pilar cyst Left Parietal Scalp Subcutaneous nodule Patient was counseled regarding cysts. Although benign, cysts often slowly enlarge and can occasionally become inflamed. Discussed the only way to definitively diagnose the lesion would be to have it removed and tested. Discussed treatment options including observation vs. excision. Patient elected for observation. Notify office if lesion is enlarging or becomes symptomatic. 3. Lentigines Scattered ramirez macules in sun-exposed areas. The patient was informed that lentigines are benign pigmented lesions that occur on sun-exposed and sun-damaged skin. No treatment is necessary. Recommended regular use of broad spectrum sunscreen SPF 30 or higher 4. History of nevus excision (3) Left Back, Left Forearm, Right Shoulder No evidence of recurrence in scar from atypical mole excision. Notify office for any recurrence at surgery site or for any new or changing lesions. 5. History of malignant melanoma of skin Left Upper Arm - Anterior No evidence of recurrence at melanoma scar. The patient was counseled that scars from excisional sites of melanoma should be monitored closely for recurrence. The patient was instructed to contact the office for any new, changing, or symptomatic moles. The patient was also instructed to contact the office for any new lesions that develop within or around the previous melanoma scar. 6. Seborrheic keratosis Stuck on verrucous, ramirez-brown papules and plaques. Patient was counseled regarding these benign growths. Removal is normally not necessary, but they may be removed if they are symptomatic or for cosmetic reasons. 7. Inflamed hair follicle Left Temporal Scalp Follicularly-based erythematous papule. Reassure, benign. Notify office if failing to improve despite treatment. Next Visit: 6 months documented in this encounter [facility] 09-14-2024 History of Present illness Narrative Images from the original note were not included. Thaddeus Mcclendon, DO Obstetrics and Gynecology Thiago [place] 1950 09/14/24 [id number] Yearly Wellness Exam Chief Complaint Patient presents with Gynecologic Exam Medicare yearly. LMP: Age 21 - only regular at age 13-18, was told genetic. Sent to [place] for laparoscopy - no more eggs- early menopause. Thickened uterine lining - had hyst D+C 07/2021 HRT: None Last pap 09-13-22 neg. Last mammogram 04-02-24 [facility] by PCP. Denies breast or urinary concerns. constipation C/o ongoing constipation since hip replacement 06/2024. Has tried OTC stool softeners, but not much relief. Weight Gain Questions weight going down during the day, even though she has been told weight is lowest in the AM. Water retention? Visit Vitals BP 118/68 Ht 5' 3.75 Wt 110 lb BMI 19.03 kg/m OB Status Postmenopausal Smoking Status Never BSA 1.5 m OB History Para Term AB Living 0 0 0 0 0 0 SAB IAB Ectopic Multiple Live Births 0 0 0 0 0 Current Outpatient Medications Medication Sig Dispense Refill Calcium Citrate-Vitamin D 315-5 MG-MCG tablet 2 tablets clindamycin (Cleocin) 300 MG capsule TAKE 2 CAPSULES BY MOUTH 1 TIME FOR 1 DOSE 30-60 MINS BEFORE DENTAL PROCEDURE WITH FOOD denosumab (Prolia) 60 MG/ML solution prefilled syringe EVERY 6 MONTHS Menaquinone-7 (Vitamin K2) 100 MCG capsule Daily Vitamin E 45 MG (100 UNIT) capsule TAKE 1 CAPSULE (100 UNITS) BY MOUTH IN THE MORNING. ASPIRIN 81 MG chewable tablet 1 (one) time each day at the same time. atorvastatin (Lipitor) 80 MG tablet 1 (one) time each day at the same time. biotin 10 MG tablet Take 4 tablets (40 mg) by mouth Daily 360 tablet 3 dexAMETHasone (Decadron) 2 MG tablet 1 (one) time each day at the same time. ergocalciferol (Vitamin D-2) 1.25 MG (23389 UT) capsule Take 1 capsule (1.25 mg) by mouth 1 (one) time per week 12 capsule 3 folic acid (Folvite) 1 MG tablet Take 1 tablet (1 mg) by mouth Daily 90 tablet 3 Glucosamine 500 MG capsule 1 (one) time each day at the same time. Ketoprofen 10 % cream Apply 1 application topically every 8 (eight) hours 120 g 11 L-METHYLFOLATE CALCIUM PO Take 1 tablet by mouth in the morning. U-Ugkqtjhwauzi-Eblmt-B12-B6 (Metanx) 3-90.314-2-35 MG capsule Take 1 capsule by mouth Daily 90 capsule 3 levothyroxine (Synthroid, Levoxyl) 50 MCG tablet 1 (one) time each day at the same time. magnesium oxide (Mag-Ox) 400 MG tablet Take 1 tablet (400 mg) by mouth at bedtime 90 tablet 3 Melatonin 2.5 MG chewable tablet Chew. Misc Natural Products (YumVs Beet Root-Tart Diallo) 250-0.5 MG chewable tablet Chew. Multiple Vitamins-Minerals (Ocular Vitamins) tablet take 2 tablet by oral route naproxen (Naprosyn) 250 MG tablet Take by [...] in the morning. No current facility-administered medications for this visit. Allergies Allergen Reactions Cephalexin Other Reaction(s): weakness in legs Cephalosporins Other Reaction(s): Hives Past Surgical History: Procedure Laterality Date CARPAL TUNNEL RELEASE Right 11/26/2022 with RT trigger finger release, Dr Davis CT ANGIOGRAM ABDOMEN PELVIS 06/12/2022 CT ANGIOGRAM ABDOMEN PELVIS HERNIA REPAIR HYSTEROSCOPY 07/2021 D+C - Dr. Bernabe at [facility] FOR THE FEEBLE-MINDED MITRAL VALVE REPAIR 03/2021 PELVIC LAPAROSCOPY age 21 TOTAL HIP ARTHROPLASTY Right 06/04/2023 Dr Barry TOTAL HIP ARTHROPLASTY Left 06/2024 Dr. Alvarez Past Medical History: Diagnosis Date Carpal tunnel syndrome of left wrist Endometrial hyperplasia Fascial defect Fibromyalgia Heart murmur Melanoma (CMS/HCC) Neuralgia and neuritis, unspecified Other intervertebral disc degeneration, lumbosacral region Paresthesia Radiculopathy Spondylosis ROS Const: Denies appetite change, fever, chills. Allergy: Denies medication reaction. Ocular: Denies visual acuity change. ENT: Denies hearing change. Endoc: Denies weight loss. Resp: Denies dyspnoea, wheezing. Cardiac: Denies angina, palpitations. GI: Denies nausea, vomiting. Haem: Denies bleeding. : Denies incontinence. MSK: Denies arthralgias, joint oedema. Derm: Denies rash, hair loss. Neuro: Denies ataxia, tremor. Also see HPI for elements of ROS documented therein and for details of positive findings, which shall supersede the foregoing. EXAM GENERAL EXAMINATION alert oriented well developed, well nourished. HEAD: normocephalic atraumatic. EYES: sclera anicteric. EARS: no obvious hearing deficit. NECK/THYROID: neck supple no cervical lymphadenopathy no thyromegaly. LYMPH NODES: no axillary, supraclavicular or inguinal adenopathy. SKIN: warm and dry. HEART: regular rate and rhythm. P 60 LUNGS: clear to auscultation bilaterally. CHEST:axillary nodes grossly normal. BREASTS:no masses palpable bilaterally, normal nipples bilaterally - everted -prominent change in UOQ - dense - well supported- axilla negative, capillary hemangiomas ABDOMEN: soft, nontender, nondistended, no masses palpable. BACK: no costovertebral angle tenderness, no obvious scoliosis/kyphosis. 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 EXTREMITIES no edema. NEUROLOGIC: alert and oriented. PSYCH: cooperative with exam. ICD-10-CM 1. Encounter for gynecological examination without abnormal finding Z01.419 Pelvic and breast exam completed. Findings of today's exam discussed with the patient. Continue MSBE. Ca/Vit D recommendations reviewed with the patient. The patient is to contact the office with any changes to her gynecological condition or any changes with breast or bleeding. The patient is to return in 1 year or as needed 2. Encounter for Papanicolaou smear of cervix Z12.4 IGP,rfxAptima HPV all,16/18,45 Thinprep collected. Will notify patient if results are abnormal. 3. Breast cancer screening by mammogram Z12.31 Screening mammogram ordered by PCP. Patient to call and schedule. 4. Osteoporosis, post-menopausal (CMS/HCC) M81.0 Discussed weight. Wakes up maybe once at night to empty. passed a year ago in July, pancreatic cancer. Entered by Jasmyn Purdy MA acting as scribe for Dr. Thaddeus Mcclendon. Signature Jasmyn Purdy MA Date 09/14/24 . Time 10:31 AM . The documentation recorded by the scribe accurately reflects the service(s) I personally performed and the decisions I made. Signature Raphael Mcclendon D.O. Date 09/14/24 Time 5:00PM. documented in this encounter [facility] 08-09-2024 History of Present illness Narrative Patient was seen by me first in July 2023. Past medical history is as noted below. Recently underwent orthopedic surgery. This is a hospital discharge follow-up. Subjective : Shortly after discharge, when physical therapy presented to her home, she passed out in her chair. Her heart rate was low at 40 during hospital stay, medications were adjusted, this bradycardia. Her discharge diagnosis was postoperative status postsurgery anesthesia effects, possible volume depletion, otherwise no major intervention was warranted. She has not had any further bouts of lightheadedness presyncope or syncope. Denies chest pressure tightness heaviness orthopnea or lower extremity edema. Patient is status post recent left total hip arthroplasty. Hospital records reviewed. Patient had been dizzy the day prior to the episode, was dizzy when she got up to the chair, she had been taking oxycodone for pain. Became very lightheaded prior to passing out. She could not remember some of these details. EKG in the ER sinus bradycardia in the 40s CT of the brain no acute intracranial process she was not orthostatic echo showed preserved LV systolic function telemetry did not show any malignant dysrhythmia. Vasovagal syncope or syncope related to arterial hypotension was the diagnosis. Oxycodone was switched to [place] History so Far : Has history of mitral valve repair, 2020 [facility]. Does not recall having much in the way of symptoms, primary physician identified heart murmur echocardiogram showed mitral regurgitation and patient had what she describes as a procedure that involved access in the right groin and a small incision right side of the chest. Details are awaited. Echocardiogram from April 2022 report was reviewed. Cardiac catheterization tracings premitral valve repair were reviewed. Preprocedural right heart catheterization-right atrial pressure 7 RV pressure 29/6, pulmonary capillary wedge pressure 10 mm, V wave pressure 15 mmHg, PA pressure 26/10 120-16. Average cardiac output 4.4 L/min, cardiac index 2.94 L/min/m Echocardiogram April 2022-LVEF 62% abnormal septal motion related to open heart surgery, right atrium moderately dilated normal RV size and systolic function mild tricuspid regurgitation RVSP 22 mmHg trivial mitral regurgitation no mitral stenosis myxomatous degeneration of the mitral valve mildly calcified aortic valve without stenosis, mild regurgitation, aortic root size normal, trivial pulmonary regurgitation, no pericardial effusion, normal IVC. Left atrial diameter or volume index was not provided. Recommend bacterial endocarditis prophylaxis. Patient now has a prosthetic hip, and hence she will be on bacterial endocarditis prophylaxis for that as well. S/P hip replacement, right, total hip arthroplasty left To be followed by orthopedics, has appointment in the near future. Mixed hyperlipidemia Remains on statin therapy Echocardiogram July 2024-LVEF 55 to 60% mitral valve area by pressure half-time 1.6 cm peak and mean gradients across mitral inflow 8 and 4 mm respectively trace mitral regurgitation mild tricuspid regurgitation RVSP 30 mmHg left atrium diameter was measured at 2.5 cm left atrial volume index 35 mL/m RVSP 27 mmHg Objective Wt Readings from Last 3 Encounters: 08/09/24 51.5 kg (113 lb 9.6 oz) 08/04/23 50.8 kg (112 lb) Vitals: 08/09/24 1311 08/09/24 1327 08/09/24 1328 BP: 124/70 112/70 98/60 BP Location: Left arm Left arm Left arm Patient Position: Sitting Sitting Standing Pulse: 64 62 66 Weight: 51.5 kg (113 lb 9.6 oz) Height: 1.638 m (5' 4.5 ) Physical Exam: Examined in the wheelchair GENERAL APPEARANCE: in no acute distress. CHEST: Symmetric and non-tender. INTEGUMENT: Skin warm and dry HEENT: No gross abnormalities identified.No pallor or scleral icterus. Hard of hearing NECK: Supple, no JVD, no bruit. NEURO/PSHCY: Alert and oriented x3; appropriate behavior and responses and responses LUNGS: Clear to auscultation bilaterally; normal respiratory effort. HEART: Rate and rhythm regular with no evident murmur; no gallop appreciated. ABDOMEN: Soft, non tender. MUSCULOSKELETAL: No gross deformities. Status post left hip arthroplasty uses cane as ambulatory aid EXTREMITIES: Warm There is no edema noted. Meds: Current Outpatient Medications Medication Instructions alpha tocopherol (VITAMIN E) 1,000 Units, Daily RT aspirin 162 mg, Every morning atorvastatin (LIPITOR) 80 mg, oral, Every morning biotin 10 mg, 2 times daily celecoxib (CELEBREX) 200 mg, Daily denosumab (PROLIA) 60 mg, Every 6 months ergocalciferol (VITAMIN D-2) 50,000 Units, Once Weekly fluoride, sodium, 1.1 % gel USE DIRECTED TWICE A DAY folic acid (FOLVITE) 1 mg, Every morning glucosamine sulfate 500 mg capsule 1 (one) time each day at the same time. levothyroxine (SYNTHROID, LEVOXYL) 50 mcg, Every morning magnesium oxide (MAG-OX) 400 mg, Every morning melatonin 2.5 mg tablet,chewable As needed omega-3 acid ethyl esters (LOVAZA) 2 g, 2 times daily turmeric 400 mg capsule 1 capsule, 2 times daily vitamin K2 100 mcg, Daily zinc gluconate 50 mg, Every morning Allergies Allergen Reactions Cephalexin Other and Unknown Tingling in legs, hot feeling Other Reaction(s): weakness in legs LABS: July 2024-hemoglobin 12.3 hematocrit 36.3 creatinine clearance 54 sodium 137 GFR greater than 60 creatinine 0.45 potassium 4.0 liver enzymes BNP 111 EKG 07/06/2024 sinus bradycardia normal intervals Patient Active Problem List Diagnosis Date Noted Body mass index (BMI) 19.9 or less, adult 08/09/2024 Hospital discharge follow-up 08/09/2024 Encounter to discuss test results 08/09/2024 Hard of hearing 08/09/2024 S/P mitral valve repair 08/04/2023 Mixed hyperlipidemia 08/04/2023 S/P hip replacement, right 06/07/2023 Primary osteoarthritis of right hip 06/04/2023 Disturbance of skin sensation 02/18/2023 Femoral neuropathy of right lower extremity 02/18/2023 Herpes simplex labialis 02/18/2023 Lumbar radiculopathy 02/18/2023 Lumbar spinal stenosis 02/18/2023 Mixed conductive and sensorineural hearing loss, bilateral 02/18/2023 Tension-type headache 02/18/2023 Tinnitus 02/18/2023 Carpal tunnel syndrome of right wrist 08/27/2021 Lumbosacral radiculopathy 08/27/2021 Insomnia 08/14/2021 Weakness 08/14/2021 Heart murmur 02/26/2021 History of malignant melanoma of skin 03/06/2020 Arthritis of left hip 05/25/2019 Benign neoplasm of skin 06/28/2015 Assessment: 1. Encounter to discuss test results 2. Hospital discharge follow-up 3. Heart murmur Follow Up In Cardiology 4. S/P mitral valve repair Follow Up In Cardiology Follow Up In Cardiology 5. Mixed hyperlipidemia atorvastatin (Lipitor) 80 mg tablet Lipid Panel Comprehensive Metabolic Panel Lipid Panel Comprehensive Metabolic Panel 6. Body mass index (BMI) 19.9 or less, adult 7. Hard of hearing Follow up : 1 year Provider Attestation - Scribe documentation Scribe Attestation By signing my name below, I, Salima Swan LPN , Scribe attest that this documentation has been prepared under the direction and in the presence of Yandy Hector MD. All medical record entries made by the Scribe were at my direction and personally dictated by me. I have reviewed the chart and agree that the record accurately reflects my personal performance of the history, physical exam, discussion and plan. documented in this encounter [facility] Work Phone: 08-09-2024 Instructions Fox Jonh MA - 08/09/2024 1:00 PM EST Please bring all medicines, vitamins, and herbal supplements with you when you come to the office. Prescriptions will not be filled unless you are compliant with your follow up appointments or have a follow up appointment scheduled as per instruction of your physician. Refills should be requested at the time of your visit. documented in this encounter [facility] Work Phone: 07-07-2024 History and physi karin note Note Date/Time July 07, 2024 12:30am [facility] [address] [place] [address] Hospitalist H&P Signed Patient: Thiago Sabillon MR#: [id number] : 1950 Acct:[id number] Age/Sex: 73 / F Adm Date: 4 Loc: Room: [address] [place] [address] Type: ADM IN Attending Dr: Pedro Quintero DO Copies to: TOIR Merritt MD Shawn J Warner, DO~ HPI DATE OF EXAMINATION: 07/06/24 CHIEF COMPLAINT: Dizziness, syncope/unresponsiveness HISTORY OF PRESENT ILLNESS: Patient is a pleasant 73-year-old female with PMH of osteoarthritis, HLD, hypothyroidism, mitral valve repair (2018, in [place]) who is status post left total hip [...] unless noted below or in the HPI. [facility] Medical History Inguinal hernia Macular degeneration right [...] mg PO DAILY 08/11/17 [History Confirmed 07/07/24] ovtp-kpxpe-mo6-fgm-joz-eazh-sterols 375 mg-100 mg-36 mg-54 mg capsule (Glucosamine Chondroitin PLUS) 1 cap PO DAILY 08/11/17 [History Confirmed 07/07/24] mecobalamin-levomefolate calcium-pyridoxal phos 2 mg-3 mg-35 mg tablet (Foltanx)1 tab PO DAILY 08/11/17 [History Confirmed 07/05/24] omega 3,6,9 combination no.7 92 mg (43 mg-22 [id number]) chew tablet (Wayan DHA) 1 tab PO DAILY 08/11/17 [History Confirmed 07/07/24] vit A 300 mcg-C 200 mg-E 27 mg-lutein 2 mg and minerals tablet (Eye Health Plus Lutein) 1 tab PO DAILY 08/11/17 [History Confirmed 07/07/24] denosumab 60 mg/mL subcutaneous syringe (Prolia) 60 mg subcut [id number] 05/14/24 [History Confirmed 07/05/24] vitamin K2 100 [...] % (Auto) 10.0 % (.) 07/06/24 17:05 Canadian % (Auto) 10.1 % (.) 07/06/24 17:05 Eos % (Auto) 0.4 % (.) 07/06/24 17:05 Baso % (Auto) 0.3 % (.) 07/06/24 17:05 Nucleat RBC Rel Count 0.0 /100 WBC (0-0.5) 07/06/24 17:05 Neut # (Auto) 10.2 x10E3/uL (1.8-7.7) H 07/06/24 17:05 Lymph # (Auto) 1.3 x10E3/uL (1.00-4.8) 07/06/24 17:05 Canadian # (Auto) 1.3 x10E3/uL (0.0-0.8) H 07/06/24 [...] signed by Pedro Quintero DO> 07/07/24 0644 [facility] Work Phone: 1(170) 542-550709-19-2024 Evaluation note* Diagnosis Onset Date Resolution Status Admit Date Primary osteoarthritis of le ft hip acute June 24, 2024 2:35pm Bradycardia acute July 06, 2024 11:13pm Primary osteoarthritis of le ft hip acute July 06 11:13pm S/P total left hip arthroplasty acute July 06 11:13pm Syncope resolved July 06, 2 024 11:13pm Aftercare following left hip joint replacement surgery acute Octobe r 2023 1:24pm S/P total left hip arthroplasty acute July 21 1:24pm Left leg swelling acute July 22, 2024 11:31am Aftercare following left hip joint replacement surgery acute Novemb er 2023 10:51am S/P total left hip arthroplasty acute August 18, 2 024 10:51am [facility] Work Phone: 1(189) 350-327609-17-2024 History of Present illness Narrative* Meldoy Barry, - 06/22/2024 9:30 AM EDT Images from the original note were not included. HISTORY OF PRESENT ILLNESS: Thiago Sabillon is an 73 y.o. @ female. Follow up RT RACHEL RT hip: 1 year s/p RT RACHEL (06/04/23). Pt presents walking unassisted. She is doing better over the last 6 months. No longer having morning pain and overall soreness has improved. Stiffness after riding in thecar. Walking everyday at the Gym and swimming. She completed some PT in the Spring with improvement. Scar is well healed. She is not taking anything for pain. The patient indicates that she is very much more better than she was before surgery and she indicates it every month she seems to be doing more better. MEDICATION: Current Outpatient Medications on File Prior to Visit Medication Sig Dispense Refill alendronate (Fosamax) 35 MG tablet TAKE ONE TABLET BY MOUTH ONCE WEELKY ASPIRIN 81 MG chewable tablet 1 (one) time each day at the same time. atorvastatin (Lipitor) 80 MG tablet 1 (one) time each day at the same time. biotin 10 MG tablet Take 4 tablets (40 mg) by mouth Daily 360 tablet 3 dexAMETHasone (Decadron) 2 MG tablet 1 (one) time each day at the same time. ergocalciferol (Vitamin D-2) 1.25 MG (30315 UT) capsule Take 1 capsule (1.25 mg) by mouth 1 (one) time per week 12 capsule 3 folic acid (Folvite) 1 MG tablet Take 1 tablet (1 mg) by mouth Daily 90 tablet 3 Glucosamine 500 MG capsule 1 (one) time each day at the same time. Ketoprofen 10 % cream Apply 1 application topically every 8 (eight) hours 120 g 11 L-METHYLFOLATE CALCIUM PO Take 1 tablet by mouth in the morning. X-Lzycbownyvds-Amqea-B12-B6 (Metanx) 3-90.314-2-35 MG capsule Take 1 capsule by mouth Daily 90 capsule 3 levothyroxine (Synthroid, Levoxyl) 50 MCG tablet 1 (one) time each day at the same time. magnesium oxide (Mag-Ox) 400 MG tablet Take 1 tablet (400 mg) by mouth at bedtime 90 tablet 3 Melatonin 2.5 MG chewable [...] Reactions Cephalexin Other Reaction(s): weakness in legs Cephalosporins Other Reaction(s): Hives VITALS: Visit Vitals OB Status Postmenopausal Smoking Status Never PHYSICAL EXAM: Ortho Exam RIGHT HIP Ambulating without assistance. Mild limp. Incision well healed Painless passive range of motion. 20 degrees of internal and 30 degrees of external range of motion. 5/5 abduction strength. IMAGING: XR hip right 2 or 3 views Imaging Result: X-rays AP and lateral of the right hip performed today June 22, 2024 demonstrate total hip replacement in good position alignment. There is calcification at the tip consistent with a formation of a pedestal and there appears to be some lucency around the distal stem of the prosthesis which may represent loosening. Impression: Total hip replacement in good position alignment with signs of loosening of the stem Kameron Barry D.O. ASSESSMENT: ICD-10-CM 1. Primary osteoarthritis of right hip M16.11 XR hip right 2 or 3 views clindamycin (Cleocin) 300 MG capsule 2. Status post total hip replacement, right Z96.641 PLAN: I advised the patient of the findings on x-ray. Considering that she is doing better and making clinical progress I would recommend simple observation at this point. I discussed with the patient the general [...] this in the future. Follow up in one year with xrays, any issues/concerns follow upsooner. Dr. Barry obtained history and examined the patient, I am acting as scribe for Dr. Barry/lauro Barry D.O. documented [facility] [id number] Hospital Discharge instructionsAmbulatory Orders* Referral to General Surgery Time Frame: 12/18/23, Location: None [facility] Work Phone: 1(488) 489-922902-13-2024 History of Present illness Narrative* Melody Barry [...] same time. ergocalciferol (Vitamin D-2) 1.25 MG (31799 UT) capsule Take 1 capsule (1.25 mg) [...] 1 tablet by mouth in the morning. A-Phkgbwwbptrl-Vjyay-B12-B6 (Metanx) 3-90.314-2-35 MG capsule Take 1 capsule [...] Dr. Barry/lauro Barry D.O. documented in this encounterResearch [facility] [id number] Evaluation note* Encounter Date Diagnosis Assessment Notes [...] denies CP, SOB throughout. EMS transferred to [place] ER in stable condition. [facility] Other 08-17-2023 Evaluation note* Encounter Date Diagnosis Assessment Notes Treatment Notes Treatment Clinical Notes May, Preoperative clearance (ICD-10 - Z01.818) Denies issues with surgeries in the past. She is moving forward with the hip replacement. Reviewed preop labs earlier this month. Able to proceed w surgery. [facility] Other 08-09-2023 Evaluation note* Encounter Date Diagnosis Assessment Notes Treatment Notes Treatment Clinical Notes May, Primary osteoarthritis of right hip (ICD-10 - M16.11) Discussed putting off surgery. Will obtain labs from [facility] for her information and reassurance that they are normal, but will reconsider hip replacement with Dr. Barry in future. May, Other Pt notes mild f oot pain, declines brusing, treatment, or desire for intervention on R foot pain. 13 Oct, 2013 Hypothyroidism, unspecified (ICD-10 - E03.9) refilled rx - chronic stable condition [facility] Other 07-21-2023 NotePatient here for surgery clearance. She will be having a right RACHEL with Dr. Barry at [facility]. She denies any cardiac symptoms at this time. No recent testing. Review of Systems Musculoskeletal: Positive for arthritis, back pain and joint pain. All other systems reviewed and are negative.[facility] 04-25-2023 NoteCardiology Follow Up Progress Note Chief [...] a day. ergocalciferol (Vitamin D-2) 1.25 MG (16719 Units) capsule Take 1 capsule by mouth [...] Strict return precautions wer (more content not included)...[facility]07-19-2023 Evaluation note* Encounter Date Diagnosis Assessment Notes [...] Reassured her t hat mammogram is normal. [facility] Other 04-05-2023 Evaluation note* Encounter Date Diagnosis Assessment Notes Treatment Notes Treatment Clinical Notes Jan, Right hip pain (ICD-10 - M25.551) Jan, Primary osteoarthritis of right hip (ICD-10 - M16.11) Jan, Other 1. We had a simeon g discussion with the patient today concerning [...] we can discuss surgery at that time. [facility] Other 02-06-2023 Evaluation note* Encounter Date Diagnosis Assessment Notes Treatment Notes Treatment Clinical Notes Nov, Foreign body of left ear, initial encounter (ICD-10 - T16.2XXA) used forceps to remove part of hearing aid from L canal Nov, Impacted cerumen, right ear (ICD-10 - H61.21) attempted to manually remove - has very hard cerumen. Recommended OTC debrox. [facility] Other 07-05-2021 NoteMR#: [id number] [facility] Pt. Name: Thiago Sabillon Admitted: 03/22/2021 Discharged: [...] CONDITION: Good. Stable. DISCHARGE DISPOSITION: Home with [facility]. DISCHARGE MEDICATIONS: Alendronate 35 mg once weekly, aspirin 325 mg once daily, atorvastatin 80 mg once daily, biotin oral 04927 mcg once daily, vitamin D2 1250 mcg [...] documentation from me. Date Dict: 04/09/2021/04:31 P/Angel Love, TIMBER SELECTOR Date Trans: 04/09/2021 05:47 P/mmo [id number] [facility]06-01-2021 History general Narrative - Reported* Type Description Date Medical History Arthritis Medical History heart murmur Surgical History Heart murmur repair 03/2021 Located [facility] Other 06-01-2021 History general Narrative - Reported* Type Description Date Medical History Arthritis Medical History heart murmur Surgical History Heart murmur repair 03/2021 Surgical History melanoma excision Surgical History carpal tunnel release right Surgical History hernia [facility] Other Evaluation noteNo assessment information available [facility] Work Phone: Evaluation noteNo InformationNortNew [facility] Other Evaluation note* Diagnosis Primary osteoarthritis of right hip- Primary Status post total hip replacement, right documented [facility] encounter [facility]* Diagnosis Onset Date Resolution Status Right hip pain acute Sebaceous cyst acute [facility] Work Phone: Evaluation note* Diagnosis Onset Date Resolution Status Right hip pain acute Sebaceous cyst acute Left hip pain acute [facility] Work Phone: Evaluation note* Diagnosis Onset Date Resolution Status Primary osteoarthritis of left hip acute [facility] Work Phone: Evaluation note* Diagnosis Onset Date Resolution Status Primary osteoarthritis of left hip acute Sinusitis, acute maxillary a cute [facility] Work Phone: evaluation note* Diagnosis Onset Date Resolution Status Sinusitis, acute maxillary a cute Primary osteoarthritis of left hip acute [facility] Work Phone: evaluation note* Diagnosis Onset Date Resolution Status Sinusitis, acute maxillary a cute Primary osteoarthritis of left hip acute Mitral valve replaced acute Preoperative clearance acute Primary osteoarthritis of left hip acute Tinea pedis acute [facility] Work Phone: evaluation note* Diagnosis Onset Date Resolution Status Sinusitis, acute maxillary a cute Primary osteoarthritis of left hip acute Mitral valve replaced acute Preoperative clearance acute Primary osteoarthritis of left hip acute Tinea pedis acute Primary osteoarthritis of left hip acute [facility] Work Phone: evaluation note* Diagnosis Onset Date Resolution Status Primary osteoarthritis of left hip acute Mitral valve replaced acute Preoperative clearance acute Primary osteoarthritis of left hip acute Tinea pedis acute Primary osteoarthritis of left hip acute [facility] Work Phone: evaluation note* Diagnosis Onset Date Resolution Status Primary osteoarthritis of left hip acute Mitral valve replaced acute Preoperative clearance acute Primary osteoarthritis of left hip acute Tinea pedis acute Primary osteoarthritis of left hip acute Bradycardia acute Primary osteoarthritis of left hip acute S/P total left hip arthroplasty acute Syncope acute [facility] Work Phone: evaluation note* Diagnosis Onset Date Resolution Status Mitral valve replaced acute Preoperative clearance acute Primary osteoarthritis of left hip acute Tinea pedis acute Primary osteoarthritis of left hip acute Bradycardia acute Primary osteoarthritis of left hip acute S/P total left hip arthroplasty acute Syncope resolved S/P total left hip arthroplasty [facility] Work Phone: evaluation note* Diagnosis Onset Date Resolution Status Mitral valve replaced acute Preoperative clearance acute Primary osteoarthritis of left hip acute Tinea pedis acute Primary osteoarthritis of left hip acute Bradycardia acute Primary osteoarthritis of left hip acute S/P total left hip arthroplasty acute Syncope resolved Aftercare following left hip joint replacement surgery acute S/P total left hip arthroplasty [facility] Work Phone: evaluation note* Diagnosis S/P hip replacement, right- Primary Heart murmur Undiagnosed cardiac murmurs S/P mitral valve repair Other postprocedural status Mixed hyperlipidemia Encounter to discuss test results Other specified counseling Hospital discharge follow-up Other follow-up examination Heart murmur Undiagnosed cardiac murmurs S/P mitral valve repair Other postprocedural status Mixed hyperlipidemia Body mass index (BMI) 19.9 or less, adult Hard of hearing Unspecified hearing loss documented in this encounter [facility] Work Phone: Evaluation note* Diagnosis Primary osteoarthritis of right hip Status post total hip replacement, right documented in this encounter [facility] HealthcareEvaluation note* Diagnosis Encounter for gynecological examination without abnormal finding Encounter for Papanicolaou smear of cervix Breast cancer screening by mammogram Osteoporosis, post-menopausal (CMS/HCC) Senile osteoporosis documented in this encounter [facility] HealthcareEvaluation note* Diagnosis Melanocytic nevus of trunk- Primary Benign neoplasm of skin of trunk, except scrotum Pilar cyst Lentigines History of nevus excision History of malignant melanoma of skin Personal history of malignant melanoma of skin Seborrheic keratosis Inflamed hair follicle Carbuncle and furuncle of unspecified site documented in this encounter [facility] HealthcareEvaluation note* Diagnosis Abrasion- Primary Abrasion or friction burn of other, multiple, and unspecified sites, without mention of infection documented in this encounter [facility] HealthcareEvaluation note* Diagnosis Lumbosacral radiculopathy Thoracic or lumbosacral neuritis or radiculitis, unspecified Disturbance of skin sensation Vitamin D deficiency Carpal tunnel syndrome of right wrist Carpal tunnel syndrome on left Carpal tunnel syndrome documented in this encounter [facility] HealthcareHistory general Narrative - Reported* Type Description Date [...] HYSTEROSCOPY 2020 Hospitalization History SEE SURGICAL [facility]X [facility] Other History general Narrative - Reported* Type [...] Re[placement 05/2023 Hospitalization History SEE SURGICAL [facility]X [facility] Other Hospital Discharge instructionsAmbulatory Orders* Initiate Home [...] medication regimen Care to be managed by [facility] Work Phone: Summary Purpose Family History No Family History Records Found Relationship Condition Age at Onset Recorded Date/T daya father Unknown Not Specified Unknown Relationship Condition Age at Onset Recorded Date/T daya father Unknown mother Unknown Relationship Condition Age at Onset Recorded Date/T daya father Unknown mother Unknown Hypertension Unknown Renal failure Unknown family member Macular degeneration Unknown sister Malignant neoplasm Unknown family member Malignant neoplasm Unknown grandparent Malignant neoplasm Unknown Advance Directives No Advanced Directives Records Found Advance Directive Response Recorded Date/ Time Advance Directives No August 08, 2017 2:29pm Advance Directive Response Recorded Date/ Time Advance Directives No August 08, 2017 1:29pm Chief Complaint and Reason for Visit Chief Complaint Headache, Ear Pain Amb Documentation Amb Documentation Lump on Head Reason for Visit Right hip pain Sebaceous cyst Chief Complaint Amb Documentation Amb Documentation Lump on Head 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 M25.552 - Pain in left hip Reason for Visit Right hip pain Sebaceous cyst Left hip pain Chief Complaint 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 M25.552 - Pain in left hip ear pressure Reason for Visit Primary osteoarthrit is of left hip Chief Complaint 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 M25.552 - Pain in [...] hip S/P total left hip arthroplasty Syncope Chief Complaint presurgical clearanc e/ lft total hip Dr Borrero Hip pain Pre op LTH H&P LTHA Prolonged Hip pain Hip pain unresponsive 2 WK POST OP LTHA Reason for Visit Mitral valve replace d Preoperative clearance Primary osteoarthritis of left hip Tinea pedis Primary osteoarthritis of left hip Bradycardia Primary osteoarthritis of left hip S/P total left hip arthroplasty Syncope S/P total left hip arthroplasty Chief Complaint presurgical clearanc e/ lft total hip Dr Borrero Hip pain Pre op LTH H&P LTHA Prolonged Hip pain Hip pain unresponsive 2 WK POST OP LTHA Reason for Visit Mitral valve replace d Preoperative clearance Primary osteoarthritis of left hip Tinea pedis Primary osteoarthritis of left hip Bradycardia Primary osteoarthritis of left hip S/P total left hip arthroplasty Syncope Aftercare following left hip joint replacement surgery S/P total left hip arthroplasty Chief Complaint Admit Date Hip pain June 21, 2024 8:15am Pre op LTH June 24, 2024 1:52pm H&P LTHA June 24, 2024 2:35pm Prolonged June 25, 2024 8:35am Hip pain July 05, 2024 7:53am Hip pain July 05, 2024 11:35am unresponsive July 06, 2024 11 :13pm 2 WK POST OP LTHA July 21, 2024 1 :24pm M16.12 - Unilateral primary osteoarthrit is, left h August 18, 2024 9:01am 4 WK RECHECK LTHA August 18, 2024 10:51am Reason for Visit Admit Date Primary osteoarthritis of left hip Septe mber 2023 2:35pm Bradycardia July 06, 2024 11 :13pm Primary osteoarthritis of left hip Octob er 2023 11:13pm S/P total left hip arthroplasty July 06, 2024 11:13pm Syncope July 06, 2024 11 :13pm Aftercare following left hip joint repla cement surgery July 21, 2024 1:24pm S/P total left hip arthroplasty July 21, 2024 1:24pm Left leg swelling July 22, 2024 1 1:31am Aftercare following left hip joint repla cement surgery August 18, 2024 10:51am S/P total left hip arthroplasty August 18, 2024 10:51am Additional Source Comments INFORMATION SOURCE (unrecogn ized section and content) DATE CREATED AUTHOR 12/27/2021 [facility] DATE CREATED AUTHOR AUTHOR'S ORGANIZ ATION 03/14/2023 [facility] DATE CREATED AUTHOR AUTHOR'S ORGANIZ ATION 05/19/2023 [facility] DATE CREATED AUTHOR AUTHOR'S ORGANIZ ATION 08/10/2024 [facility] DATE CREATED AUTHOR AUTHOR'S ORGANIZ ATION 10/02/2024 [facility] DATE CREATED AUTHOR AUTHOR'S ORGANIZ ATION 10/29/2024 [facility] DATE CREATED AUTHOR AUTHOR'S ORGANIZ ATION 11/30/2024 [facility] EPIC REASON FOR VISIT (unrecogniz ed section and content) Reason Comments Follow-up Reason Comments Annual Exam Specialty Diagnoses / Procedures Referred By Irma t Referred To Contact Cardiology Diagnoses Heart murmur S/P mitral valve repair Procedures Follow Up In Cardiology Yandy Hector MD Phone: tel: fax: Yandy Hector MD [address] [facility] [address] [place] [address] Phone: tel: fax: Referral ID Status Reason Start Date Expiration Date V isits Requested Visits Authorized [id number] Authorized 08/04/2023 08/03/2024 1 1 Reason Comments Gynecologic Exam Medicare yearly.LMP: Age 21 - only regular at age 13-18, was told genetic. Sent to [place] for laparoscopy - no more eggs- early menopause. Thickened uterine lining - had hyst D+C 07/2021HRT: NoneLast pap 09-13-22 neg.Last mammogram 04-02-24 [facility] by PCP.Denies breast or urinary concerns. constipation C/o ongoing constipa tion since hip replacement 06/2024. Has tried OTC stool softeners, but not much relief. Weight Gain Questions weight goi ng down during the day, even though she has been told weight is lowest in the AM. Water retention? Reason Comments Skin Check Reason Comments Suspicious Skin Lesion Care Teams (unrecognized sec tion and content) [...] Active Joshua Phipps MD Attending Provider Active Log Rafter Relationship Specialty Start Date End Date Kallie Chase MD [address] [place] [address] PCP - General Family Medicine 02/24/23 Log Rafter Relationship Specialty Start Date End Date Kallie Chase MD [address] [place] [address] PCP - General Family Medicine 02/24/23 Team [...] July 06, 2024 End: July 07, 2024 Team Status: Inactive Member Role Status Dates Kallie Chase MD Primary Care Provider Active Start: July 21, 2024 End: July 21, 2024 Vernell Alvarez II, MD Attending Provider Active Start: July 21, 2024 End: July 21, 2024 Team Status: Inactive Member Role Status Dates Kallie Chase MD Primary Care Provide r, Attending Provider Active Start: July 22, 2024 End: July 22, 2024 Log Rafter Relationship Specialty Start Date End Date Kallie Chase MD [address] [place] [address] PCP - General Family Medicine 08/04/23 Team Status: Active Member Role Status Dates Kallie Chase MD Primary Care Provider Active Start: August 18, 2024 Vernell Alvarez II, MD Attending Provider Active Start: August 18, 2024 Team Status: Inactive Member Role Status Dates Kallie Chase MD Primary Care Provider Active Start: August 18, 2024 End: August 18, 2024 Vernell Alvarez II, MD Attending Provider Active Start: August 18, 2024 End: August 18, 2024 Log Rafter Relationship Specialty Start Date End Date Kallie Chase MD [address] [place] [id number] PCP - General Family Medicine 02/24/23 Log Rafter Relationship Specialty Start Date End Date Kallie Chase MD [address] [place] [address] PCP - General Family Medicine 02/24/23 Log Rafter Relationship Specialty Start Date End Date Kallie Chase MD [address] [place] [id number] PCP - General Family Medicine 02/24/23 Log Rafter Relationship Specialty Start Date End Date Kallie Chase MD [address] [place] [phone] PCP - General Family Medicine 02/24/23 Log Rafter Relationship Specialty Start Date End Date Kallie Chase MD [address] [place] [facility] [phone] PCP - General Family Medicine 02/24/23 Log Rafter Relationship Specialty Start Date End Date Kallie Chase MD [address] [place] [facility] [address] PCP - General Family Medicine 02/24/23 Log Rafter Relationship Specialty Start Date End Date Kallie Chase MD [address] [facility] [address] PCP - General Family Medicine 02/24/23 Goals (unrecognized section and content) Goals may [...] BE BASED ON THE PRIMARY CLINICAL RECORDS. [facility] [employer] [facility]. provides no warranty or guarantee of the accuracy or completeness of information in this document.
[2025-02-14 08:39] LABS: Calcium 8.7 mg/dL (8.5-10.1); Estimated GFR (African America >60 (>=60 mL/min/1.73m^2); Estimated GFR (Non-African Ame >60 (>=60 mL/min/1.73m^2); Magnesium 2.1 mg/dL (1.8-2.4); Phosphorus 4.4 mg/dL (2.6-4.7)
== END 2025-02-14 07:22 | disposition home or self-care (01) ==
PROVIDERS: PCP Family Medicine; Visit Provider Internal Medicine Rheumatology
DX: M81.0 Age-related osteoporosis without current pathological fracture (principal); Z79.899 Other long term (current) drug therapy
CPT/HCPCS: 36415; 82310; 82565; 83735; 84100; 84520

== ENCOUNTER 2025-04-04 10:09 | Outpatient (OUT) | payer MEDICARE, SELFPAY ==
--- NOTE | 2025-04-04 10:12 | MM_ITS ---
Patient Name: DARYL SABILLON MR#: [id number] : 1950 Exam Date: 04/04/2025 Ordering Doctor: DR KALLIE CHASE M.D. RADIOLOGY REPORT PROCEDURE: MM TOMOSYNTHESIS SCREENING BI COMPARISON: MM TOMOSYNTHESIS SCREENING BI, 04/02/2024. MM TOMOSYNTHESIS SCREENING BI, 03/07/2023. MG MAMM SCREEN 3D ARIANA CAD, 02/19/2021. MG MAMM ARIANA SCRN W CAD DIG, 06/28/2013. INDICATIONS: Screening Calculator Name NCI Breast Cancer Risk Assessment Tool 5 Year Breast Cancer Risk 3.50% Lifetime Breast Cancer Risk 7.90% Personal Breast Cancer No Personal Ovarian Cancer No Treatments None Family Cancers Sister with breast cancer at age 55. LOCATION: [facility] BREAST COMPOSITION: The breasts are extremely dense, which lowers the sensitivity of mammography. FINDINGS: DIAGNOSTIC CATEGORY 1--NEGATIVE. RIGHT BREAST: No significant suspicious finding. LEFT BREAST: No significant suspicious finding. RECOMMENDATIONS: ROUTINE MAMMOGRAM AND CLINICAL EVALUATION IN 12 MONTHS. PLEASE NOTE: A NORMAL MAMMOGRAM DOES NOT EXCLUDE THE POSSIBILITY OF BREAST CANCER. A CLINICALLY SUSPICIOUS PALPABLE LUMP SHOULD BE BIOPSIED. Dictated by: Daniel Rudolph DO on 04/04/2025 at 16:16 Approved by: Daniel Rudolph DO on 04/04/2025 at 16:20
== END 2025-04-04 10:10 | disposition home or self-care (01) ==
LOC: MAMMO 10:09
PROVIDERS: PCP Family Medicine; Visit Provider Family Medicine
DX: M81.0 Age-related osteoporosis without current pathological fracture (principal); Z12.31 Encounter for screening mammogram for malignant neoplasm of breast; Z80.3 Family history of malignant neoplasm of breast; M81.8 Other osteoporosis without current pathological fracture
CPT/HCPCS: 77063; 77067; 77080

== ENCOUNTER 2025-05-10 19:12 | Emergency (ER) | payer MEDICARE, SELFPAY ==
--- OUTSIDE RECORDS SUMMARY | 2024-06-21 09:40 | XMS_ITS ---
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 TAKE WITH MEALS. DO NOT CRUSH, CHEW, OR SPLIT.. Oral for 30 Days Active Famotidine 20 MG TAKE ONE TABLET BY M OUTH TWICE A DAY Oral for 5 Days Active Levothyroxine Sodium 50 MCG TAKE ONE TAB LET BY MOUTH DAILY Oral for 90 Days Active Social History Tobacco Use: Social History Observation Description Date Details (start date - stop date) Never Smoker NA - NA Tobacco Use/Smoking Question Answer Notes Patient is a nonsmoker Vital Signs Weight 110 lbs 06/21/2024 Height 64 in 06/21/2024 Temperature 98.4 degrees Fahrenheit 06/21/20 24 Heart Rate 88 /min 06/21/2024 BMI 18.88 kg/m2 06/21/2024 Encounters Encounter Location Date Provider Diagnosis [facility] (PODIATRY) [address] [place] [address] [place] [id number] 06/21/2024 Karie Che Pain in right toe(s) M79.674 and Pain in left toe(s) M79.675 Assessments Encounter Date Diagnosis (ICD Code) Assessment Notes Treatment Notes Treatment Clinical Notes Section Notes 06/21/2024 Pain in right toe(s) (ICD-10 - M79.674) 06/21/2024 Pain in left toe(s) (ICD-10 - M79.675) Plan Of Treatment No Information Progress Notes * Raul KRISHNANOB:1950 ( 73 yo F)Acc No.[id number]:06/21/2024 Nurse Visit Patient: Thiago CERVANTES Provider: Fabian Che PA-C :1950 A ge:73 Y S ex:Female Date:06/21/2024 Address:[address] [place] [address], [id number] Pcp:Anahi Branch Check In:01:40 PM ESTCheck O ut:02:08 PM EST Subjective: * Chief Complaints: * N ail Care * HPI: G eneral: Patient in office today for nail care. Nails were trimmed and filed to her liking. * Active Problem List ?Problem List has not been verified* Medical History: * Surgical History: r ight hip surgery May 2023 mitral valve surgery * Hospitalization/Major Diagno stic Procedure: s ee above * Family History: N o Family History documented.. * Social History: T obacco Use: T obacco Use/Smoking P atient is a n onsmoker * Medications: T akingFamotidine 20 MG Tablet TAKE ONE TABLET BY MOUTH TWICE A DAY Oral Ferrous Sulfate 325 (65 Fe) MG Tablet Delayed Release TAKE 1 TABLET (325 MG) BY MOUTH IN THE MORNING. TAKE WITH MEALS. DO NOT CRUSH, CHEW, OR SPLIT.. Oral Levothyroxine Sodium 50 MCG Tablet TAKE ONE TABLET BY MOUTH DAILY Oral Taking Famotidine 20 MG Tablet TAKE ONE TABLET BY MOUTH TWICE A DAY Oral Taking Ferrous Sulfate 325 (65 Fe) MG Tablet Delayed Release TAKE 1 TABLET (325 MG) BY MOUTH IN THE MORNING. TAKE WITH MEALS. DO NOT CRUSH, CHEW, OR SPLIT.. Oral Taking Levothyroxine Sodium 50 MCG Tablet TAKE ONE TABLET BY MOUTH DAILY Oral * Allergies: K eflexno[Allergies Verified] Objective: * Vitals: W t:110lbs, Ht: 64 in, Temp:98.4F, HR:88/min, BMI:18.88Index, Pain scale:01-10, Ht-cm: 162.56 cm, Wt-k.9 kg. Assessment: * Assessment: 1. P ain in right toe(s) - M79.674 (Primary) 2 . P ain in left toe(s) - M79.675 Plan: * Treatment: * Procedure Codes: 9 9211 OFFICEOUTPT VISIT, EST * * Sign off status: Completed Visit Status: Renetta WILSON (Check Out) true * Provider: Fabian Che PA-C Date: 0 06/21/2024 Generated for Printi ng/Danielg/eTransmitting on: 0 05/10/2025 07:35 PM EDT History and Physical Notes * HPI (History of Present Illness) Category Sub-Category Detail Notes Category Not es General Patient in offi ce today for nail care. Nails were trimmed and filed to her liking.
--- OUTSIDE RECORDS SUMMARY | 2024-09-20 09:40 | XMS_ITS ---
Author Organization [facility] in [place] Address [address] [place] [address] Care Team Providers Care Register Of Deeds Name Role Phone Anahi Branch Primary Care Provider Karie Waterman Unavailable [phone] Allergies Allergen (clinical drug ingredient) Drug/Non Drug Allergy documented on EMR Reaction Allergy Type Onset Date Status Keflex Unknown Drug Allergy Active REASON FOR VISIT Nail Care Medications Medication SIG (Take, Route, Frequency, Duration) Notes Start Date End Date Status Levothyroxine Sodium 50 MCG TAKE ONE TAB LET BY MOUTH DAILY Oral for 90 Days Active Ferrous Sulfate 325 (65 Fe) MG TAKE 1 TABLET (325 MG) BY MOUTH IN THE MORNING. TAKE WITH MEALS. DO NOT CRUSH, CHEW, OR SPLIT.. Oral for 30 Days Active Famotidine 20 MG TAKE ONE TABLET BY M OUTH TWICE A DAY Oral for 5 Days Active Social History Tobacco Use: Social History Observation Description Date Details (start date - stop date) Never Smoker NA - NA Tobacco Use/Smoking Question Answer Notes Patient is a nonsmoker Vital Signs Height 64 in 09/20/2024 Temperature 98.6 degrees Fahrenheit 09/20/20 24 Heart Rate 85 /min 09/20/2024 Oximetry 99 % 09/20/2024 Encounters Encounter Location Date Provider Diagnosis [facility] (PODIATRY) [address] [place] [address] [place] [address] 09/20/2024 Karie Che Pain in left toe(s) M79.675 and Pain in right toe(s) M79.674 Assessments Encounter Date Diagnosis (ICD Code) Assessment Notes Treatment Notes Treatment Clinical Notes Section Notes 09/20/2024 Pain in left toe(s) (ICD-10 - M79.675) 09/20/2024 Pain in right toe(s) (ICD-10 - M79.674) Plan Of Treatment No Information Progress Notes * Raul KRISHNANOB:1950 ( 74 yo F)Acc No.[id number]:09/20/2024 Nurse Visit Patient: Thiago CERVANTES Provider: Fabian Che PA-C :1950 A ge:73 Y S ex:Female Date:09/20/2024 Address:[address] [place], [place] [id number] Pcp:Anahi Branch Check In:01:42 PM ESTCheck O ut:02:04 PM EST Subjective: * Chief Complaints: * N ail Care * HPI: G eneral: Patients in office for nail care. Nails were trimmed 1-10 and filed to her liking. No incidents. * Active Problem List ?Problem List has [...] Allergies: K eflexno[Allergies Verified] Objective: * Vitals: H t: 64 in, Temp:98.6F, HR:85/min, Pain scale:01-10, Oxygen sat %:99%, Ht-cm: 162.56 cm. Assessment: * Assessment: 1. P ain in left toe(s) - M79.675 (Primary) 2 . P ain in right toe(s) - M79.674 Plan: * Treatment: * Procedure Codes: * * Sign off status: Completed Visit Status: C HK (Check Out) true * Provider: Fabian Che PA-C Date: 1 11/21/2023 Generated for Lenin parkinson/Meg/eTransmitting on: 0 05/10/2025 07:36 PM EDT History and Physical Notes * HPI (History of Present Illness) Category Sub-Category Detail Notes Category Not es General Patients in off ice for nail care. Nails were trimmed 1-10 and filed to her liking. No incidents.
--- OUTSIDE RECORDS SUMMARY | 2024-12-20 09:40 | XMS_ITS ---
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 Name Role Phone Anahi Branch Primary Care Provider Karie Waterman [facility] [phone] Encounters Encounter Location Date Provider Diagnosis [facility] (PODIATRY) [address] [place] [address] [place] [address] 12/20/2024 Karie Che Plan Of Treatment No Information Progress Notes * Raul KRISHNANOB:1950 ( 74 yo F)Acc No.[id number]:12/20/2024 UNLOCKED PROGRESS NOTE Nurse Visit Patient: Thiago CERVANTES Provider: Fabian Che PA-C :1950 A ge:74 Y S ex:Female Date:12/20/2024 Address:[address] [place], [place] [id number] Pcp:Anahi Branch Subjective: * Chief Complaints: * * Medical History: Objective: * Vitals: Assessment: Plan: * Treatment: * * Electronic signature of Teresa Che PA-C on 05/10/2025 at 07:35 PM EDT Sign off status: Pending Visit Status: C ANC (Cancelled) * Provider: Fabian Che PA-C Date: 0 12/20/2024 Generated for Lenin ng/Fakatyg/eTransmitting on: 0 05/10/2025 07:35 PM EDT
[2025-05-10 19:19] VITALS: BP 154/70; PULSE 62; TEMP 36.7; O2SAT 98; BMI 18.9
--- OUTSIDE RECORDS SUMMARY | 2025-05-10 19:35 | XMS_ITS | Encounter Summary ---
Author Organization [facility] Address [address] [place] [address] Care Team Providers Care Corporate Driver Name Role Phone Anahi Branch MD Primary Care Provider [phone] Encounter Details Date Type Department Care Team (Late st Contact Info) Description 05/07/2023 Abstract [facility] [address] [place] [address] Cristian Trimble, PT [address] [place] [address] Social History Tobacco Use Types Packs/Day Years Used Date Smoking Tobacco: Never Smokeless Tobacco: Never Alcohol Use Standard Drinks/Week Comments Not Currently 0 (1 standard drink = 0.6 oz pur e alcohol) Comments Unknown Sex and Gender Information Value Date Recorded Sex Assigned at Not on file Legal Sex Female 7:20 PM EDT Gender Identity Not on file Sexual Orientation Not on file documented as of this encounter Plan of Treatment Upcoming Encounters Date Type Department Care Team (Late st Contact Info) Description 06/21/2025 11:00 AM EDT Office Visit [facility] [address] [place] [address] Amy Patricia MD [address] [place] [address] 06/28/2025 9:00 AM EDT Office Visit [facility] [address] [place] [phone] Viraj Barry DO [address] [place] [address] 09/19/2025 9:30 AM EST Office Visit [facility] [address] [place] [address] Thaddeus Mcclendon, DO [address] [place] [address] 11/28/2025 8:30 AM EST Office Visit [facility] [place] [facility] [address] [place] [address] Tiesha Jacobsen, SURGICAL ASSISTANT CERTIFIED [address] [facility] [place] , [facility] [address] [place] [phone] documented as of this encounter Visit Diagnoses Not on filedocumented in this encounter Care Teams Corporate Driver Relationship Specialty Start Date End Date Anahi Branch MD PCP - General Family Medicine 02/24/23 documented as of this encounter
--- OUTSIDE RECORDS SUMMARY | 2025-05-10 19:35 | XMS_ITS | Clinical Summary ---
Author Organization [facility] Address [address] [place] [address] Care Team Providers Care Insurance Healthcare Consultant Name Role Phone Anahi Branch MD Primary Care Provider [phone] Allergies Active Allergy Reactions Criticality Noted Date Comments Cephalexin Other,Unknown 08/11/2019 Tingling in legs, hot feeling Medications alendronate (Fosamax) 35 mg tablet Take 35 mg by mouth 1 (one) time per week. Active aspirin 81 mg EC tablet Take 2 tablets by mouth in the morning. Active baclofen (Lioresal) 10 mg tablet Take 10 mg by mouth in the morning and at bedtime. Active ergocalciferol (Vitamin D-2) 1.25 MG (39285 Units) capsule Take 1 capsule by mouth 1 (one) time per week. 9 Active folic acid (Folvite) 1 mg tablet Take 1 mg by mouth in the morning. 9 Active levothyroxine (Synthroid, Levoxyl) 50 mcg tablet Take 50 mcg by mouth in the morning. 9 Active magnesium oxide (Mag-Ox) 400 mg (241.3 mg magnesium) tablet Take 1 tablet by mouth in the morning. Active meloxicam (Mobic) 15 mg tablet Take 1 tablet by mouth in the morning. Active valACYclovir (Valtrex) 1 gram tablet Take 1 tablet by mouth in the morning. PRN Active biotin 10 mg tablet Take 10 mg by mouth twice a day. Active atorvastatin (Lipitor) 80 mg tabletIndications:H yperlipidemia, unspecified hyperlipidemia type Take 1 tablet (80 mg) by mouth at bedtime. 90 tablet 3 3 Active Active Problems Problem Noted Date Diagnosed Date Disturbance of skin sensation 02/18/2023 Femoral neuropathy of right lower extremity 02/0304/24/2023 Herpes simplex labialis 02/18/2023 04/24/20 Mixed conductive and sensorineural hearing loss, bilateral 02/18/2023 04/24/2023 Tension-type headache 02/18/2023 04/24/2023 Tinnitus 02/18/2023 04/24/2023 Carpal tunnel syndrome of right wrist 08/27/2021 04/24/2023 Lumbosacral radiculopathy 08/27/20212022 Insomnia 08/14/2021 04/24/2023 Weakness 08/14/2021 04/24/2023 Heart murmur 02/26/2021 04/24/2023 History of malignant melanoma of skin 03/06/2020 04/24/2023 Arthritis of left hip 05/25/2019 04/24/2023 Pain in joint involving pelvic region and thigh 05/25/2019 04/24/2023 Benign neoplasm of skin 06/28/2015 04/24/20 23 Immunizations Immunization Administration Dates Next Due Pneumococcal Polysaccharide PPV23 10/22/2017 Zoster, Recombinant 01/01/2022,09/24/2021 Zoster, live 02/12/2012 Family History Medical History Relation Name Comments Transient ischemic attack Father Relation Name Status Comments Father Social History Tobacco Use Types Packs/Day Years Used Date Smoking Tobacco: Never Smokeless Tobacco: Never Tobacco Cessation:Counseling Given: Not Answered Alcohol Use Standard Drinks/Week Comments Not Currently 0 (1 standard drink = 0.6 oz pur e alcohol) [place] Safety & Environment Answer Date Rec orded Fear of Current or Ex-Partner Not on file Emotionally Abused Not on file 11/27/2023 Physically Abused Not on file 11/27/2023 Sexually Abused Not on file 11/27/2023 Physically or Sexually Abused Not on file Comments Unknown Sex and Gender Information Value Date Recorded Sex Assigned at Female 04/24/2023 11:49 AM EDT Legal Sex Female 9:47 PM EDT Gender Identity Female 04/24/2023 11:49 AM EDT Sexual Orientation Heterosexual or Straight 04/06 11:48 AM EDT Last Filed Vital Signs Vital Sign Reading Time Taken Comments Blood Pressure 113/67 04/25/2023 1:24 PM EDT Pulse 59 04/25/2023 1:24 PM EDT Temperature 36.4 C (97.6 F) 10/25/2021 1:54 PM EST Respiratory Rate 16 10/25/2021 1:54 PM EST Oxygen Saturation 100% 04/25/2023 1:24 PM EDT Inhaled Oxygen Concentration - - Weight 49.9 kg (110 lb) 04/25/2023 1:24 PM EDT Height 163.8 cm (5' 4.5 ) 04/25/2023 1:24 PM EDT Body Mass Index 18.59 04/25/2023 1:24 PM EDT Plan of Treatment Health Maintenance Due Date Last Done Comments CT Colonography 1950 Colonoscopy 1950 Colorectal Cancer Screening 1950 FIT-DNA 1950 FIT 1950 FOBT 1950 Medicare Annual Wellness (AWV) 1950 Sigmoidoscopy 1950 Depression Screening 1962 Adult Tetanus 1972 Mammogram 1990 Fall Risk Screening 2015 Pneumococcal Vaccine: 50+ Years (2 of 2 - PCV) 10/22/2018 10/22/2017 COVID-19 Vaccine ( - 2023-2 5 season) 2024 Influenza Vaccine (#1) 2025 Zoster Vaccines Completed 01/01/2022, 09/24/2021, 02/12/2012 HIB Vaccines Aged Out No longer eligi ble based on patient's age to complete this topic HPV Vaccines Aged Out No longer eligi ble based on patient's age to complete this topic IPV Vaccines Aged Out No longer eligi ble based on patient's age to complete this topic Meningococcal B Vaccine Aged Out No l onger eligible based on patient's age to complete this topic Meningococcal Vaccine Aged Out No kacey altaf eligible based on patient's age to complete this topic Rotavirus Vaccines Aged Out No longer eligible based on patient's age to complete this topic Insurance [employer] MEDICARE ADVANTAGE Care Teams Insurance Healthcare Consultant Relationship Specialty Start Date End Date Anahi Branch MD [address] [place] [address] #A PCP - General 04/23/23
--- OUTSIDE RECORDS SUMMARY | 2025-05-10 19:35 | XMS_ITS | Clinical Summary ---
Author Organization [facility] Address [address] [place] [address] Phone Care Team Providers Care Ab Initio Etl Developer Name Role Phone Anahi Branch MD Primary Care Provider [phone] Allergies Active Allergy Reactions Criticality Noted Date Comments Cephalexin Other,Unknown 08/11/2019 Tingling in legs, hot feeling Other Reaction(s): weakness in legs Medications aspirin 81 mg EC tablet Take 2 tablets (162 mg) by mouth once daily in the morning. Active biotin 10 mg tablet Take 1 tablet (10 mg) by mouth twice a day. Active ergocalciferol (Vitamin D-2) 1.25 MG (02573 UT) capsule Take 1 capsule (50,000 Units) by mouth 1 (one) time per week. 9 Active fluoride, sodium, 1.1 % gel USE DIRECTED TWICE A DAY Active folic acid (Folvite) 1 mg tablet Take 1 tablet (1 mg) by mouth once daily in the morning. 9 Active levothyroxine (Synthroid, Levoxyl) 50 mcg tablet Take 1 tablet (50 mcg) by mouth once daily in the morning. 9 Active magnesium oxide (Mag-Ox) 400 mg (241.3 mg magnesium) tablet Take 1 tablet (400 mg) by mouth once daily in the morning. 3 Active melatonin 2.5 mg tablet,chewable Chew if needed. Active omega-3 acid ethyl esters (Lovaza) 1 gram capsule Take 2 capsules (2 g) by mouth twice a day. Active turmeric 400 mg capsule Take 1 capsule by mouth twice a day. Active alpha tocopherol (Vitamin E) 670 mg (1,000 unit) capsule Take 1 capsule (1,000 Units) by mouth once daily. Active zinc gluconate 50 mg tablet Take 1 tablet (50 mg) by mouth once daily in the morning. Active glucosamine sulfate 500 mg capsule 1 (one) time each day at the same time. Active celecoxib (CeleBREX) 200 mg capsule Take 1 capsule (200 mg) by mouth once daily. 4 Active vitamin K2 100 mcg capsule Take 1 capsule (100 mcg) by mouth once daily. 4 Active denosumab (Prolia) 60 mg/mL syringe Inject 1 mL (60 mg total) under the skin every 6 months. Active atorvastatin (Lipitor) 80 mg tabletIndications:M ixed hyperlipidemia Take 1 tablet (80 mg) by mouth once daily in the morning. 90 tablet 3 4 08/09/20 25 Active Active Problems Problem Noted Date Diagnosed Date Body mass index (BMI) 19.9 or less, adult 2023 Hospital discharge follow-up 08/09/2024 Encounter to discuss test results 08/09/2024 Hard of hearing 08/09/2024 S/P mitral valve repair 08/04/2023 Assessment & Plan (08/04/2023 7:26 PM EDT): Preprocedural right heart catheterization-right atrial pressure 7 [...] bacterial endocarditis prophylaxis for that as well. Mixed hyperlipidemia 08/04/2023 Assessment & Plan (08/04/2023 7:28 PM EDT): Remains on statin therapy, laboratory data not available. S/P hip replacement, right 06/07/2023 Assessment & Plan (08/04/2023 7:26 PM EDT): To be followed by orthopedics, has appointment in the near future. Primary osteoarthritis of right hip 06/04/2023 Disturbance of skin sensation 02/18/2023 Femoral neuropathy of right lower extremity 02/03 Herpes simplex labialis 02/18/2023 Lumbar radiculopathy 02/18/2023 Lumbar spinal stenosis 02/18/2023 Mixed conductive and sensorineural hearing loss, bilateral 02/18/2023 Tension-type headache 02/18/2023 Tinnitus 02/18/2023 Carpal tunnel syndrome of right wrist 08/27/2021 Lumbosacral radiculopathy 08/27/2021 Insomnia 08/14/2021 Weakness 08/14/2021 Heart murmur 02/26/2021 History of malignant melanoma of skin 03/06/2020 Arthritis of left hip 05/25/2019 Benign neoplasm of skin 06/28/2015 Immunizations Immunization Administration Dates Next Due Pneumococcal polysaccharide vaccine, 23-valent, age 2 years and older (PNEUMOVAX 23) 10/22/2017 Zoster vaccine, recombinant, adult (SHINGRIX) ,09/24/2021 Zoster, live 02/12/2012 Family History Medical History Relation Name Comments Stroke Father Transient ischemic attack Father Hypertension Mother Kidney failure Mother Breast cancer Sister Relation Name Status Comments Father Mother Sister Social History Tobacco Use Types Packs/Day Years Used Date Smoking Tobacco: Never Smokeless Tobacco: Never Alcohol Use Standard Drinks/Week Comments Yes 0 (1 standard drink = 0.6 oz pur e alcohol) social Comments Unknown Sex and Gender Information Value Date Recorded Sex Assigned at Not on file Legal Sex Female 12:25 AM EST Gender Identity Not on file Sexual Orientation Not on file Last Filed Vital Signs Vital Sign Reading Time Taken Comments Blood Pressure 98/60 08/09/2024 1:28 PM EST Pulse 66 08/09/2024 1:28 PM EST Temperature - - Respiratory Rate - - Oxygen Saturation - - Inhaled Oxygen Concentration - - Weight 51.5 kg (113 lb 9.6 oz) 08/09/2024 1:11 P M EST Height 163.8 cm (5' 4.5 ) 08/09/2024 1:11 PM EST Body Mass Index 19.2 08/09/2024 1:11 PM EST Plan of Treatment Upcoming Encounters Date Type Department Care Team (Late st Contact Info) Description 08/15/2025 1:00 PM EST Office Visit [place] [id number] [facility] [address] [place] [address] Yandy Hector MD [address] [facility] [address] [place], [place] [id number] Health Maintenance Due Date Last Done Comments CT Colonography 1950 Colonoscopy 1950 Colorectal Cancer Screening 1950 FIT-DNA (Cologuard) 1950 FIT 1950 Lipid Panel 1950 Medicare Annual Wellness Visit (AWV) 1950 Sigmoidoscopy 1950 Skin Cancer Screening 1950 TSH Level 1950 Hepatitis C Screening 1968 DTaP/Tdap/Td Vaccines (1 - Tdap) 1972 Mammogram 1990 RSV High Risk: (Elderly (60+) or Population) (1 - Risk 60-74 years 1-dose series) 2010 MMR Vaccines (1 of 1 - Standard series) 03/11/2012 Pneumococcal Vaccine (2 of 2 - PCV) 10/22/2018 10/22/2017 Zoster Vaccines (3 of 3) 02/26/202201/01/ 022, 12/31/2021, 09/24/2021, Additional history exists COVID-19 Vaccine ( - 2023- season) 2024 Bone Density Scan 03/07/2025 03/07/2023, 09/13/2022 Influenza Vaccine (#1) 2025 HIB Vaccines Aged Out No longer eligi ble based on patient's age to complete this topic HPV Vaccines Aged Out No longer eligi ble based on patient's age to complete this topic Hepatitis A Vaccines Aged Out No long er eligible based on patient's age to complete this topic Hepatitis B Vaccines Aged Out No long er eligible based on patient's age to complete this topic IPV Vaccines Aged Out No longer eligi ble based on patient's age to complete this topic Meningococcal Vaccine Aged Out No kacey altaf eligible based on patient's age to complete this topic Rotavirus Vaccines Aged Out No longer eligible based on patient's age to complete this topic Insurance JENNIFER BAUMANN MEDICARE Care Teams Ab Initio Etl Developer Relationship Specialty Start Date End Date Anahi Branch MD [address] [place] [address] [address] [place] [address] PCP - General Family Medicine 08/04/23
--- OUTSIDE RECORDS SUMMARY | 2025-05-10 19:35 | XMS_ITS | Encounter Summary ---
Author Organization [facility] Address [address] [place] [address] Phone Care Team Providers Care Console Operator Name Role Phone Anahi Branch MD Primary Care Provider [phone] Encounter Details Date Type Department Care Team (Late st Contact Info) Description 05/07/2023 Scanned Document [facility] [address] [place] [id number] Scanning, Generic Provider Social History Tobacco Use Types Packs/Day Years Used Date Smoking Tobacco: Never Assessed Comments Unknown Sex and Gender Information Value Date Recorded Sex Assigned at Not on file Legal Sex Female 12:25 AM EST Gender Identity Not on file Sexual Orientation Not on file documented as of this encounter Plan of Treatment Upcoming Encounters Date Type Department Care Team (Late st Contact Info) Description 08/15/2025 1:00 PM EST Office Visit [facility] [address] [facility] [address] [place] [address] Yandy Hector MD [address] [facility] [address] [place] [address] documented as of this encounter Procedures Procedure Name Priority Date/Time Associated Diagnosis Comments OUTSIDE CARDIOLOGY SCAN 05/07/2023 ECHOCARDIOGRAM 05/07/2023 documented in this encounter Results * ECHOCARDIOGRAM (05/07/2023) Narrative 05/07/2023 Ordered by an unspecified provider. us Generic Provider Scanning CV ECHO PROCEDURES Fin al Result * OUTSIDE CARDIOLOGY SCAN (05/07/2023) Narrative 05/07/2023 Ordered by an unspecified provider. us Generic Provider Scanning OUTSIDE SCAN Final Result documented in this encounter Visit Diagnoses Not on filedocumented in this encounter Care Teams Console Operator Relationship Specialty Start Date End Date Anahi Branch MD [address] [place] [address] [place] [address] PCP - General Family Medicine 08/04/23 documented as of this encounter
--- OUTSIDE RECORDS SUMMARY | 2025-05-10 19:35 | XMS_ITS | Encounter Summary ---
Author Organization [facility] [employer] Address [facility]-[id number] [address] [place] [address] Care Team Providers Care Mangle Press Catcher Name Role Phone Anahi Branch MD Primary Care Provider [phone] Encounter Details Date Type Department Care Team (Late st Contact Info) Description 06/13/2022 Orders Only [facility] [address] [place] [address] Camelia Kellogg, MARLA Abdominal aortic aneurysm (AAA) without rupture ([facility]); Pelvic and perineal pain; Mass of inguinal region Social History Tobacco Use Types Packs/Day Years Used Date Smoking Tobacco: Never Smokeless Tobacco: Never Alcohol Use Standard Drinks/Week Comments Yes 0 (1 standard drink = 0.6 oz pur e alcohol) social Childcare Answer Date Recorded Childcare Unknown 03/17/2019 Employment Answer Date Recorded Employment Unknown 03/17/2019 Purpose - Life Answer Date Recorded Purpose and direction in life Unknown Comments No Sex and Gender Information Value Date Recorded Sex Assigned at Not on file Legal Sex Female 12:02 PM EDT Gender Identity Not on file Sexual Orientation Not on file COVID-19 Exposure Response Date Recorded In the last month, have you been in contact with someone who was confirmed or suspected to have Coronavirus / COVID-19? No / Unsure 06/13/2022 10:11 AM EDT documented as of this encounter Plan of Treatment Not on file documented as of this encounter Procedures Procedure Name Priority Date/Time Associated Diagnosis Comments CT CTA ABD AND PELVIS Routine 06/12/2022 Abdominal aortic aneurysm (AAA) without rupture ([facility]) CREATININE, SERUM Routine 06/12/2022 Pelvic and perineal pain Mass of inguinal region VASC ARTERIAL DOPPLER LOWER BILATERAL MULTI LEVEL/PVR Routine 05/23/2022 documented in this encounter Results * Creatinine includes GFR, serum (06/12/2022) External Creatinine 0.67 SUNQUEST External Gfr Amer >60 SUNQUEST External Gfr Non Amer >60 SUNQUEST 06/12/2022 Malu Juarez MD LAB BLOOD ORDERABLES Edited Res ult - Final SUNQUEST * CT angiogram abdomen and pelvis (06/12/2022) Anatomical Region Laterality Modality Body, Abdomen, Body Covera N/A Compu maryjane Tomography 06/12/2022 Malu Juarez MD IMG CT ORDERABLES Final Result * Vas art doppler lwr bilat mult lev/PVR (05/23/2022) Anatomical Region Laterality Modality Vascular Bilateral Ultrasound us Not In System Ref Prov CV VASCULAR ORDERABLES Fi nal Result documented in this encounter Visit Diagnoses Diagnosis Abdominal aortic aneurysm (AAA) without rupture Pelvic and perineal pain Mass of inguinal region documented in this encounter Care Teams Mangle Press Catcher Relationship Specialty Start Date End Date Anahi Branch MD [address] [place] [address] PCP - General Family Medicine 09/07/19 documented as of this encounter
--- OUTSIDE RECORDS SUMMARY | 2025-05-10 19:35 | XMS_ITS | Clinical Summary ---
Author Organization [employer] Address [id number] [address] [place] [address] Care Team Providers Care Audio Visual Collections Coordinator Name Role Phone Anahi Branch MD Primary Care Provider Allergies Active Allergy Reactions Criticality Noted Date Comments Cephalexin Other (See Comments) 08/11/2019 Tingling in legs, hot feeling Medications biotin 1 mg capsule Take 1 capsule by mouth in the morning. Active omega-3 acid ethyl esters (LOVAZA) 1 gram capsule Take 2 capsules (2 g total) by mouth in the morning and 2 capsules (2 g total) before bedtime. Active glucosam-chondr oitin-diet cb25 116-100 mg capsule Take 1 tablet by mouth in the morning. Active VITAMIN D2 50,000 unit capsule Take 1 capsule (50,000 Units total) by mouth once a week. 08/12/2019 Active folic acid (FOLVITE) 1 mg tablet Take 1 tablet (1 mg total) by mouth in the morning. 08/12/2019 Active levothyroxine (SYNTHROID, LEVOTHROID) 50 MCG tablet Take 1 tablet (50 mcg total) by mouth in the morning. 09/09/2019 Active mecobal-levomef olat Ca-B6 phos (METANX) 3-35-2 mg tablet Take 1 tablet by mouth in the morning. Active vitamin E 1000 units capsule Take 1 capsule (1,000 Units total) by mouth in the morning. Active magnesium oxide (MAG-OX) 400 mg tablet Take 1 tablet (400 mg total) by mouth in the morning. Active atorvastatin (LIPITOR) 80 mg tablet Take 1 tablet (80 mg total) by mouth in the morning. 04/25/2023 Active aspirin 81 mg Take 2 tablets (162 mg total) by mouth in the morning. Active turmeric 400 mg capsule Take 1 capsule by mouth in the morning and 1 capsule before bedtime. Active CALCIUM CITRATE ORAL Take 1 tablet by mouth in the morning. Active Active Problems Problem Noted Date Diagnosed Date Primary osteoarthritis of right hip 06/04/2023 Family History Medical History Relation Name Comments Stroke Father Hypertension Mother Kidney disease Mother Colon cancer Paternal Grandfather Breast cancer Sister Relation Name Status Comments Father Mother Paternal Grandfather Sister Alive Social History Tobacco Use Types Packs/Day Years Used Date Smoking Tobacco: Never Smokeless Tobacco: Never Tobacco Cessation:Counseling Given: Not Answered Alcohol Use Standard Drinks/Week Comments Yes 0 (1 standard drink = 0.6 oz pur e alcohol) social Childcare Answer Date Recorded Childcare Unknown 03/17/2019 Employment Answer Date Recorded Employment Unknown 03/17/2019 Hunger Screening Answer Date Recorded Within the past 12 months we worried whether our food would run out before we got money to buy more. Never True 01/08/2024 Food Insecurity - Inability Not on file 01/2024 Purpose - Life Answer Date Recorded Purpose and direction in life Unknown Comments No Sex and Gender Information Value Date Recorded Sex Assigned at Not on file Legal Sex Female 12:02 PM EDT Gender Identity Not on file Sexual Orientation Not on file Last Filed Vital Signs Vital Sign Reading Time Taken Comments Blood Pressure 156/80 01/08/2024 10:57 AM EDT Pulse 61 01/08/2024 10:57 AM EDT Temperature 36.3 C (97.4 F) 06/05/2023 11:09 PM EDT Respiratory Rate 18 06/05/2023 11:09 PM EDT Oxygen Saturation 96% 06/05/2023 11:09 PM EDT Inhaled Oxygen Concentration - - Weight 49 kg (108 lb) 01/08/2024 10:57 AM EDT Height 162 cm (5' 3.78 ) 01/08/2024 10:57 AM EDT Body Mass Index 18.67 01/08/2024 10:57 AM EDT Plan of Treatment Health Maintenance Due Date Last Done Comments Depression Screening 1962 DTaP,Tdap and Td Vaccines (1 - Tdap) 1969 Fall Risk Screening 2015 Zoster (Shingles) Vaccine (3 of 3) 02/26/2022 01/01/2022, 12/31/2021, 09/24/2021, Additional history exists Adult BMI Screening 01/07/2025 01/08/2024 Tobacco Screening 01/08/2025 01/09/2024 Influenza Vaccine 06/06/2025 Goals Goal Patient Goal Type Associated Problems Recent Progress Patient-Stated? Author Home General Yes Dorita Davis LSW Note: Evaluation of progress towards goal: Home with family support and NOMS PT Medical Devices Implanted Type Area Leather Products Supervisor Device Identifier Shelf Expiration Date Model / Serial / Lot Mesh Brd Preshape Moseley 3x5 Rpl [id number] - Sna - [id number] Implanted:Qt y: 1 on 10/12/2019 by Jovani Buenrostro DO at [facility] Mesh Left: Groin DAVOL 01/31/2021 [id number] / NA / [id number] Shell Actb 56mm Hip 4 Hl Clr Cd [place] G7 F Hmsphr - Sna - [id number] Implanted:Qt y: 1 on 06/04/2023 by Viraj Barry DO at [facility] Orthopedic Implant Right: Hip [employer] 10/22/2032 [id number] / NA / [id number] Liner Actb 36mm F Vivacit-E Lum G7 Hip Strl Lf - Sna - [id number] Implanted:Qt y: 1 on 06/04/2023 by Viraj Barry DO at [facility] Orthopedic Implant Right: Hip [employer] 12/17/2027 [id number] / NA / [id number] Stem Fem 129d 5 09/18 46mm Fitmore Protasul-64 Hip Rgh Blast - Sna - [id number] Implanted:Qt y: 1 on 06/04/2023 by Viraj Barry DO at [facility] Orthopedic Implant Right: Hip [employer] 03/05/2028 [id number] / NA / [id number] [employer] Cocr Head, Femoral Head 09/18 Taper Implanted:Qt y: 1 on 06/04/2023 by Viraj Barry DO at [facility] Other Implant Right: Hip [employer] 11/18/2032 [id number] / NA / [id number] Screw Bn 25mm 6.5mm St Hip Trlg Strl Rpl [id number] - Sna - [id number] Implanted:Qt y: 1 on 06/04/2023 by Viraj Barry DO at [facility] Screw Right: Hip [employer] 11/26/2032 [id number] / DONALD / [id number] Screw Bn 30mm 6.5mm St Actb Anibal Trlg Strl Rpl [id number] - Sna - [id number] Implanted:Qt y: 1 on 06/04/2023 by Viraj Barry DO at [facility] Screw Right: Hip [employer] 12/30/2032 [id number] / NA / [id number] Screw Bn 25mm 6.5mm St Hip Trlg Strl Rpl [id number] 28+[id number] - Sna - [id number] Implanted:Qt y: 1 on 06/04/2023 by Viraj Barry DO at [facility] Screw Right: Hip [employer] 11/27/2032 [id number] / DONALD / [id number] Insurance NA MEDICARE Advance Directives * Full Code (Latest Code Status on File) Date Activated Date Inactivated Comments 06/04/2023 8:00 AM 06/06/2023 3:34 PM Care Teams Audio Visual Collections Coordinator Relationship Specialty Start Date End Date Anahi Branch MD [address] [place], [place] [id number] PCP - General Family Medicine 09/07/19
--- OUTSIDE RECORDS SUMMARY | 2025-05-10 19:35 | XMS_ITS | Encounter Summary ---
Author Organization [facility] [employer] [facility] Address [facility]-[id number] [address] [place] [address] Care Team Providers Care Mid Level Clinician Name Role Phone Anahi Branch MD Primary Care Provider [phone] Encounter Details Date Type Department Care Team (Late st Contact Info) Description 09/13/2022 Telephone [facility] Care [address] [facility] [place] [phone] Camelia Kellogg CMA Social History Tobacco Use Types Packs/Day Years [...] have Coronavirus / COVID-19? No / Unsure 09/12/2022 1:55 PM EST documented as of this encounter Plan of Treatment Not on file documented as of this encounter Visit Diagnoses Not on filedocumented in this encounter Care Teams Mid Level Clinician Relationship Specialty Start Date End Date Anahi Branch MD [address] [place] [address] PCP - General Family Medicine 09/07/19 documented as of this encounter
--- OUTSIDE RECORDS SUMMARY | 2025-05-10 19:36 | XMS_ITS | Encounter Summary ---
Author Organization [facility] Address [address] [place] [address] Phone Care Team Providers Care Statistics Manager Name Role Phone Anahi Branch MD Primary Care Provider [phone] Encounter Details Date Type Department Care Team (Late st Contact Info) Description 07/07/2024 Scanned Document [facility] [address] [place] [id number] Scanning, Generic Provider Social History Tobacco Use [...] Description 08/15/2025 1:00 PM EST Office Visit [facility] [address] [facility] [address] [place] [address] Yandy Hector MD [address] [facility] [address] [place] [address] documented as of this encounter Visit Diagnoses Not on filedocumented in this encounter Additional Health Concerns Assessment Noted Time A fall risk assessment has been complete d for the patient 08/04/2023 2:06 PM EDT documented as of this encounter Care Teams Statistics Manager Relationship Specialty Start Date End Date Anahi Branch MD [address] [place] [address] [address] [place] [address] PCP - General Family Medicine 08/04/23 documented as of this encounter
--- OUTSIDE RECORDS SUMMARY | 2025-05-10 19:36 | XMS_ITS | Encounter Summary ---
Author Organization [facility] Address [address] [place] [address] Phone Care Team Providers Care Nursing Attendant Name Role Phone Anahi Branch MD Primary Care Provider [phone] Encounter Details Date Type Department Care Team (Late st Contact Info) Description 07/06/2024 Scanned Document [facility] [address] [place] [phone] Scanning, Generic Provider Social History Tobacco Use [...] Description 08/15/2025 1:00 PM EST Office Visit [facility] [address] [facility] [address] [place] [address] Yandy Hector MD [address] [facility] [address] [place] [address] Scheduled Orders Name Type Priority Associated Diagnoses Orde r Schedule Ultrasound- OnBase Scan Imaging O rdered: 07/06/2024 documented as of this encounter Procedures Procedure Name Priority Date/Time Associated Diagnosis Comments OUTSIDE IMAGING SCAN 07/06/2024 ECHOCARDIOGRAM 07/06/2024 documented in this encounter Results * Echocardiogram (07/06/2024) Narrative 07/06/2024 Ordered by an unspecified provider. us Generic Provider Scanning CV ECHO PROCEDURES Fin al Result * OUTSIDE IMAGING SCAN (07/06/2024) Anatomical Region Laterality Modality Other Narrative 07/06/2024 Ordered by an unspecified provider. us Generic Provider Scanning OUTSIDE SCAN Final Result documented in this encounter Visit Diagnoses Not on filedocumented in this encounter Additional Health Concerns Assessment Noted Time A fall risk assessment has been complete d for the patient 08/04/2023 2:06 PM EDT documented as of this encounter Care Teams Nursing Attendant Relationship Specialty Start Date End Date Anahi Branch MD [address] [place], [place] [id number] PCP - General Family Medicine 08/04/23 documented as of this encounter
--- OUTSIDE RECORDS SUMMARY | 2025-05-10 19:36 | XMS_ITS | Encounter Summary ---
Author Organization [facility] Address [address] [place] [address] Phone Care Team Providers Care Breakfast Server Name Role Phone Anahi Branch MD Primary Care Provider [phone] Encounter Details Date Type Department Care Team (Late st Contact Info) Description 06/12/2023 Orders Only [facility] [address] [place] [address] Conversion, Onbase Social History Tobacco Use Types Packs/Day Years [...] Description 08/15/2025 1:00 PM EST Office Visit [place] [id number] [facility] [address] [place] [address] Yandy Hector MD [address] [facility] [address] [place] [address] Scheduled Orders Name Type Priority Associated Diagnoses Orde r Schedule OUTSIDE LAB SCAN Lab Ordered: 06/12/2023 documented as of this encounter Visit Diagnoses Not on filedocumented in this encounter Care Teams Breakfast Server Relationship Specialty Start Date End Date Anahi Branch MD [address] [place] [address] [place] [address] PCP - General Family Medicine 08/04/23 documented as of this encounter
--- OUTSIDE RECORDS SUMMARY | 2025-05-10 19:36 | XMS_ITS | Encounter Summary ---
Author Organization [facility] Address [address] [place] [address] Phone Care Team Providers Care Blindmaker Name Role Phone Anahi Brnach MD Primary Care Provider [phone] Encounter Details Date Type Department Care Team (Late st Contact Info) Description 05/22/2023 Scanned Document [facility] [address] [place] [address] Conversion, Onbase Social History Tobacco Use Types [...] Description 08/15/2025 1:00 PM EST Office Visit [facility] [address] [facility] [address] [place] [address] Yandy Hector MD [address] [facility] [address] [place] [address] documented as of this encounter Procedures Procedure Name Priority Date/Time Associated Diagnosis Comments ELECTROCARDIOGRAM RHYTHM STRIP 05/22/2023 ELECTROCARDIOGRAM RHYTHM STRIP 05/22/2023 documented in this encounter Results * ELECTROCARDIOGRAM RHYTHM STRIP (05/22/2023) Narrative 05/22/2023 Ordered by an unspecified provider. us Onbase Conversion ECG ORDERABLES Final Result * ELECTROCARDIOGRAM RHYTHM STRIP (05/22/2023) Narrative 05/22/2023 Ordered by an unspecified provider. us Onbase Conversion ECG ORDERABLES Final Result documented in this encounter Visit Diagnoses Not on filedocumented in this encounter Care Teams Blindmaker Relationship Specialty Start Date End Date Anahi Branch MD [address] [place] [address] PCP - General Family Medicine 08/04/23 documented as of this encounter
--- OUTSIDE RECORDS SUMMARY | 2025-05-10 19:36 | XMS_ITS | Patient Health Record ---
Author Organization [facility] [place] Address [address] [place] [address] Care Team Providers Care Real Estate Processor Name Role Phone Anahi Branch Primary Care Provider Unavailabl e Allergies Allergen (clinical drug ingredient) Drug/Non Drug Allergy documented on EMR Reaction Allergy Type Onset Date Status Keflex Unknown Drug Allergy Active Reason For Referral No Information Medications Medication SIG (Take, Route, Frequency, Duration) Notes Start Date End Date Status Levothyroxine Sodium 50 MCG Oral for 90 Days Active Magnesium Oxide 400 MG TAKE 1 TABLET (40 0 MG) BY MOUTH AT BEDTIME. Oral for 90 Days Active Vitamin D (Ergocalciferol) 1.25 MG (17262 UT) TAKE 1 CAPSULE (1.25 MG) BY MOUTH 1 (ONE) TIME PER WEEK. Oral for 84 Days Active Vitamin E 45 MG (100 UNIT) TAKE 1 CAPSUL E (100 UNITS) BY MOUTH IN THE MORNING. Oral for 90 Days Active Biotin 10 MG 1 tablet Orally Once a day Active Atorvastatin Calcium 80 MG Oral for 90 Days Active Social History Tobacco Use: Social History Observation Description Date Details (start date - stop date) Never Smoker NA - NA Tobacco Use/Smoking Question Answer Notes Patient is a nonsmoker Problems Problem Type SNOMED Code ICD Code Onset Dates Problem Status W/U Status Risk Notes Problem [id number] Presence of unspecified artificial hip joint (Z96.649) Active confirmed Plan Of Treatment No Information Insurance Providers Payer Name Payer Address Payer Phone Subscriber Number Group Number Insured Name Patient Relationship to Insured Coverage Start Date Coverage End Date [employer] MEDICARE [address] [place], [place] [id number] [phone] [id number] Inge Krishnan Self - patient is the insured Medical (General) History Medical History History ICD Code Arthritis hip replacement Surgical History Surgery Date(Month/Year) mitro valve repair 03/26 right hip replacement 05/28 hernia 10/24 skin cancer 02/17 Hospitalization History Reason Date(Month/Year) above
--- OUTSIDE RECORDS SUMMARY | 2025-05-10 19:36 | XMS_ITS | Patient Health Record ---
Author Organization [facility] [place] Address [address] [place] [address] Care Team Providers Care Heel Seat Pounder Name Role Phone Anahi Branch Primary Care Provider Karie Waterman Unavailable [phone] Allergies Allergen (clinical drug ingredient) Drug/Non Drug [...] Notes Patient is a nonsmoker Vital Signs Heart Rate 85 /min 09/20/2024 Temperature 98.6 degrees Fahrenheit 09/20/2024 Oximetry 99 % 09/20/2024 Height 64 in 09/20/2024 Weight 110 lbs 06/21/2024 BMI 18.88 kg/m2 06/21/2024 Encounters Encounter Location Date Provider Diagnosis [facility] [address] [place] [address] 06/21/2024 Karie Che Pain in right toe(s) M79.674 and Pain in left toe(s) M79.675 [facility] [address] [place] [address] 09/20/2024 Karie Che Pain in left toe(s) M79.675 and Pain in right toe(s) M79.674 Assessments Encounter Date Diagnosis (ICD Code) Assessment Notes Treatment Notes Treatment Clinical Notes Section Notes 06/21/2024 Pain in right toe(s) (ICD-10 - M79.674) 06/21/2024 Pain in left toe(s) (ICD-10 - M79.675) 09/20/2024 Pain in right toe(s) (ICD-10 - M79.674) 09/20/2024 Pain in left toe(s) (ICD-10 - M79.675) Plan Of Treatment No Information Insurance Providers Payer Name Payer Address Payer Phone Subscriber Number Group Number Insured Name Patient Relationship to Insured Coverage Start Date Coverage End Date [employer] MEDICARE [address] [place] [address] [id number] Thiago Krishnan Self - patient is the insured Medical (General) History Medical History History ICD Code heart problems thyroid Surgical History Surgery Date(Month/Year) mitral valve surgery right hip surgery May 2023 Hospitalization History Reason Date(Month/Year) see above
--- OUTSIDE RECORDS SUMMARY | 2025-05-10 19:36 | XMS_ITS | Encounter Summary ---
Author Organization [facility] Address [address] [place] [address] Phone Care Team Providers Care Blade Grader Operator Name Role Phone Anahi Branch MD Primary Care Provider [phone] Encounter Details Date Type Department Care Team (Late st Contact Info) Description 06/12/2023 Scanned Document [facility] [address] [place] [address] Conversion, Onbase Social History Tobacco Use Types [...] Description 08/15/2025 1:00 PM EST Office Visit [facility] [address] [facility] [address] [place] [address] Yandy Hector MD [address] [facility] [address] [place] [address] documented as of this encounter Procedures Procedure Name Priority Date/Time Associated Diagnosis Comments OUTSIDE IMAGING SCAN 06/12/2023 documented in this encounter Results * OUTSIDE IMAGING SCAN (06/12/2023) Anatomical Region Laterality Modality Other Narrative 06/12/2023 Ordered by an unspecified provider. us Onbase Conversion OUTSIDE SCAN Final Result documented in this encounter Visit Diagnoses Not on filedocumented in this encounter Care Teams Blade Grader Operator Relationship Specialty Start Date End Date Anahi Branch MD [address] [place] [address] [place] [address] PCP - General Family Medicine 08/04/23 documented as of this encounter
--- OUTSIDE RECORDS SUMMARY | 2025-05-10 19:36 | XMS_ITS | Patient Health Record ---
Author Organization [facility] Address [address] [place] [address] Care Team Providers Care Spring Layer Name Role Phone tonyJonatan Singer Primary Care Provider Allergies Allergen (clinical drug ingredient) Drug/Non Drug Allergy documented on EMR Reaction Allergy Type Onset Date Status Keflex Unknown Drug Allergy Active Reason For Referral No Information Medications Medication SIG (Take, Route, Frequency, Duration) Notes Start Date End Date Status Vitamin E 45 MG (100 UNIT) TAKE 1 CAPSUL E (100 UNITS) BY MOUTH IN THE MORNING. Oral; Duration: 100 Days Active Vitamin D (Ergocalciferol) 1.25 MG (05958 UT) TAKE 1 CAPSULE (1.25 MG) BY MOUTH 1 (ONE) TIME PER WEEK. Oral; Duration: 84 Days Active Magnesium Oxide 400 MG TAKE 1 TABLET (40 0 MG) BY MOUTH AT BEDTIME. Oral; Duration: 90 Days Active Folic Acid 1 MG TAKE 1 TABLET (1 MG) BY MOUTH IN THE MORNING. Oral; Duration: 90 Days Active Biotin 64391 MCG TAKE 4 TABLETS (40 M G) BY MOUTH IN THE MORNING. Oral; Duration: 90 Days Active Atorvastatin Calcium 80 MG Oral; Duration: 90 Days Active Levothyroxine Sodium 50 MCG TAKE 1 TABLE T BY MOUTH EVERY DAY Oral; Duration: 90 Days Active Social History Tobacco Use: Social History Observation Description Date Details (start date - stop date) Never Smoker NA - NA Sexual Hx: Question Answer Notes Had sex in the last 12 months (vaginal, oral, or anal)? No LMP: age 21 Depression Screening (PHQ-9): Question Answer Notes Little interest or pleasure in doing things Not at all Feeling down, depressed, or hopeless Not at all Trouble falling or staying asleep, or sleeping t oo much Not at all Feeling tired or having little energy Not at all Poor appetite or overeating Not at all Feeling bad about yourself-o r that you are a failure or have let yourself or your family down Not at all Trouble concentrating on thi ngs, such as reading the newspaper or watching television Not at all Moving or speaking so slowly that other people could have noticed. Or the opposite being so fidgety or restless that you have been moving around a lot more than usual Not at all Thoughts that you would be b todd off , or of hurting yourself in some way Not at all Total Score 0 AUDIT-C (Standard) Question Answer Notes Did you have a drink containing alcohol in the p ast year? No Points 0 Interpretation Negative Tobacco Control (Standard) Question Answer Notes Tobacco use: Nonsmoker Plan Of Treatment No Information Insurance Providers Payer Name Payer Address Payer Phone Subscriber Number Group Number Insured Name Patient Relationship to Insured Coverage Start Date Coverage End Date [employer] MEDICARE ADVANTAGE [address] [place] [phone] [id number] DARYL SABILLON Self - patient is the insured 3 Medical (General) History Medical History History ICD Code Ovarian failure Surgical History Surgery Date(Month/Year) mytrovalve hip replacement Hospitalization History Reason Date(Month/Year) see surgical
[2025-05-10] MEDS: FAMOTIDINE 20 MG TABLET 40 MG PO (19:49)
[2025-05-10] MEDS: DIPHENHYDRAMINE HCL 25 MG CAPSULE PO ×2 (19:49→21:48)
--- NOTE | 2025-05-10 19:50 | ED_ITS ---
HPI - Extremity Problem General Chief complaint: Extremity Problem, Nontraumatic Stated complaint: STUNG BY A WASP Time Seen by Provider: 05/10/25 19:30 Source: patient Mode of arrival: walk-in Limitations: no limitations History of Present Illness HPI Narrative: Patient presents to the ER with a complaint of an insect wasp sting to the right hand. She states she does not have a history of anaphylaxis. She has gottn redness and swelling to the area. She states last time she did have redness has worsened. She states that she is not having any difficulty breathing or with any throat swelling. She is phonating normally. She states she has not take anything at home for the symptoms. Related Data Home Medications ?Medication ?Instructions ?Recorded ?Confirmed aspirin 81 mg tablet,delayed 81 mg PO DAILY 07/12/24 1 release (Adult Aspirin Regimen) biotin 10 mg tablet 10 mg PO DAILY 07/12/2404/28 hydrocodone 5 mg-acetaminophen 325 1 tab PO Q6H PRN pa in 07/12/24 07/12/24 mg tablet magnesium oxide 400 mg (241.3 mg 400 mg PO DAILY 07/1207/12/24 magnesium) tablet vitamin E (dl, acetate) 45 mg (100 45 mg PO DAILY 04/2807/12/24 unit) capsule Previous Rx's ?Medication ?Instructions ?Recorded famotidine 20 mg tablet (Pepcid) 20 mg PO BID #10 tabs 05/14/23 hydroxyzine HCl 25 mg tablet 25 mg PO Q6H PRN itching #20 tabs 05/14/23 methylprednisolone 4 mg tablets in See Rx Instructions .Route 05/14/23 a dose pack (Medrol (Archie)) .COMPLEX #21 ea amoxicillin 500 mg capsule 500 mg PO BID 10 days #20 c aps 10/03/23 PFSH PFSH Social History Smoking status: Never smoker Little interest or pleasure in doing things: not at all Feeling down, depressed, or hopeless: not at all Exam Constitutional Vital Signs, click to edit/add: Last Vital Signs Temp 98.1 F 05/10/25 19:19 Pulse 62 05/10/25 19:19 Resp 18 05/10/25 19:19 BP 154/70 H 05/10/25 19:19 Pulse Ox 98 05/10/25 19:19 O2 Del Method Room Air 05/10/25 19:19 Documenting provider has reviewed patient's vital signs: yes Common normals: no apparent distress, average body habitus and oriented x3 General appearance: cooperative and comfortable [facility] Common normals: normocephalic Head and scalp: normal to inspection and normocephalic Face and sinus: normal facial exam, sinuses nontender and face symmetric Nose: external nose normal, nares normal and nasal mucous membranes and turbinates normal External ear: external ears normal and external ear abnormal Tympanic membrane: TMs normal bilaterally Mouth: oral and palatal mucosa normal, lip normal, tongue normal, salivary glands and ducts normal and moist mucous membranes abnormal Teeth and gingiva: abnormal tooth and associated gingiva Throat: posterior oropharynx normal, tonsils normal and uvula midline Respiratory Common normals: normal respiratory effort and clear to auscultation bilaterally Cardio Common normals: regular rate, regular rhythm and no murmurs Peripheral pulses: pulses 2+ throughout Extremity General: normal exam except as noted Right upper extremity: hand and digits Course Vital Signs Vital signs: Vital Signs Temperature 98.1 F 05/10/25 19:19 Pulse Rate 62 05/10/25 19:19 Respiratory Rate 18 05/10/25 19:19 Blood Pressure 154/70 H 05/10/25 19:19 Pulse Oximetry 98 05/10/25 19:19 Oxygen Delivery Method Room Air 05/10/25 19:19 Temperature 98.1 F 05/10/25 19:19 Pulse Rate 62 05/10/25 19:19 Respiratory Rate 18 05/10/25 19:19 Blood Pressure 154/70 H 05/10/25 19:19 Pulse Oximetry 98 05/10/25 19:19 Oxygen Delivery Method Room Air 05/10/25 19:19 MDM - Extremity (Nontraumatic) MDM Narrative Medical decision making narrative: Patient presents to the ER with a complaint of an insect wasp sting to the right hand. She states she does not have a history of anaphylaxis. She has gottn redness and swelling to the area. She states last time she did have redness has worsened. She states that she is not having any difficulty breathing or with any throat swelling. She is phonating normally. She states she has not take anything at home for the symptoms. Patient is alert and oriented no acute distress. HEENT exam is unremarkable. Lungs are clear. Patient is resting comfortably in her room in no acute distress. Patient has redness of the right hand on the dorsal aspect where she got stung. She does not have any streaking redness up her arm. She has some mild swelling. This is very localized and appears to be a histamine reaction from the insect bite. She does not have any systemic symptoms. Vital signs have been stable here. She is not hypotensive or tachycardic. Patient was reevaluated on 2 separate occasions and continues to be doing well with no respiratory compromise or signs of anaphylaxis. She was given a dose of Benadryl Pepcid and Decadron here She was requesting to take her Benadryl home with her because she does not have any at home. I did discharge her with some Benadryl. She was encouraged to wait at least 6 to 8 hours to repeat the dose. She can return with any worse or concerning symptoms. Patient will be discharged in stable condition at this time Discharge Plan Discharge Chief Complaint: Extremity Problem, Nontraumatic Clinical Impression: Insect sting, Swelling of right hand Patient Disposition: Home, Self-Care Time of Disposition Decision: 21:34 Condition: Good Prescriptions / Home Meds: No Action hydrocodone-acetaminophen 5-325 mg tablet 1 tab PO Q6H PRN (Reason: pain) vitamin E (dl, acetate) 45 mg (100 unit) capsule 45 mg PO DAILY aspirin [Adult Aspirin Regimen] 81 mg tablet,delayed release (DR/EC) 81 mg PO DAILY biotin 10 mg tablet 10 mg PO DAILY magnesium oxide 400 mg (241.3 mg magnesium) tablet 400 mg PO DAILY famotidine [Pepcid] 20 mg tablet 20 mg PO BID Qty: 10 0RF hydroxyzine HCl 25 mg tablet 25 mg PO Q6H PRN (Reason: itching) Qty: 20 0RF methylprednisolone [Medrol (Archie)] 4 mg tablets,dose pack See Rx Instructions .ROUTE .COMPLEX Qty: 21 0RF Rx Instructions: Taper as directed amoxicillin 500 mg capsule 500 mg PO BID 10 Days Qty: 20 0RF Print Language: Angolan Instructions: Insect Bite or Sting (ED) Referrals: Anahi Branch MD [Primary Care Provider, Family Practice] - 1 week Discharge Date/Time: 05/10/25 21:58
--- NOTE | 2025-05-10 19:56 | PC.NURSE ---
Pt presents to ER after being stung on her right hand while working outside Pt states she has not previously had an allergic reaction from a sting but due to the sudden swelling and redness she wanted to be checked out Pts hand from the base of fingers to wrist swollen and red Pt given an icepack which she states has given her pain relief Pt denies any shortness of breath Movement and pulses strong in affected hand Pt denies further needs or quetions at this time
[2025-05-10] MEDS: DEXAMETHASONE 4 MG TABLET 8 MG PO (21:47)
== END 2025-05-10 21:58 | disposition home or self-care (01) ==
PROVIDERS: Emergency Provider Internal Medicine; PCP Family Medicine
DX: T63.461A Toxic effect of venom of wasps, accidental (unintentional), initial encounter (principal); M79.89 Other specified soft tissue disorders
CPT/HCPCS: 99284; J8540

== ENCOUNTER 2025-06-23 11:05 | Outpatient (OUT) | payer MEDICARE, SELFPAY ==
--- OUTSIDE RECORDS SUMMARY | 2025-06-23 11:21 | XMS_ITS | CCD ---
Author Organization [facility] Care Team Providers Care Marzipan Maker Name Role Phone SELF, REFERRED Referring Unavailable MASROOR, CHELE Admitting Unavailable MASROOR, CHELE Attending Unavailable SELF, REFERRED Primary Care Unavailable KALLIE CHASE Primary Care Unavailable KALLIE CHASE Referring Unavailable MASROOR, CHELE Attending Unavailable MASROOR, CHELE Admitting Unavailable MASROOR, CHELE Surgeon Unavailable [place] Procedure Practitioner Unavailab le SELF, REFERRED Referring Unavailable ELTAHAWY, EHAB A Admitting Unavailable ELTAHAWY, EHAB A Attending Unavailable SELF, REFERRED Primary Care Unavailable Kallie Chase Unavailable Vernell Alvarez II Unavailable [phone] MD Kallie Chase Primary Care Provider MD [...] Care Provider MD Joshua Phipps Attending Provider [phone] Jennifer Mccarthy Unavailable Kallie Chase MD Primary Care Provider MD Kallie Chase Primary Care Provider MD Vernell Alvarez II Attending Provider MD Kallie Chase Primary Care Provider [phone] MD Vernell Alvarez II Attending Provider [phone] CASSANDRA Guthrie Emergency Provider DO Pedro Quintero Admit Provider DO Pedro Quintero Attending Provider MD Shaun Yang Attending Provider YANDY HECTOR Attending Unavailable YANDY HECTOR Referring Unavailable KALLIE CHASE Primary Care Unavailable Kallie Chase MD Primary Care Provider Kallie Chase MD Primary Care Provider Vernell Alvarez MD Attending Provider Jose Guthrie PA-C Emergency Provider Pedro Quintero DO Admit Provider [phone] Shaun Yang MD Attending Provider Vernell Alvarez II Admitting Unavailabl e ChaseKallie E Primary Care Unavailable Vernell Alvarez II Attending Unavailabl e Chase, Kallie E Primary Care Unavailable Shaun Yang Attending Unavailable Pedro Quintero Admitting Unavailable Vernell Alvarez II Admitting Unavailabl e Chase, Kallie E Primary Care Unavailable Antonio RODRIGUEZ, Vernell Huizar Attending Unavailabl e [place] II, Vernell M Admitting Unavailabl e Kallie Chase Primary Care Unavailable Antonio RODRIGUEZ, Vernell Huizar Attending Unavailabl e Chase, Kallie Benítez Primary Care Unavailable Antonio II, Vernell M Admitting Unavailabl e [place] II, Vernell Huizar Attending Unavailabl e Kallie Chase Primary Care Unavailable Antonio II, Vernell Huizar Attending Unavailabl e Antonio II, Vernell M Admitting Unavailabl e ChaseKallie E Primary Care Unavailable Antonio RODRIGUEZ, Vernell Huizar Attending Unavailabl e Antonio II, Vernell M Admitting Unavailabl e ChaseKallie Primary Care Unavailable Avelino Pena Attending Unavailable Avelino Pena Admitting Unavailable Kallie Chase MD Primary Care Provider SANDY DAY Attending Unavailable BRAXTON JACOBSEN Attending Unavailable THADDEUS MCCLENDON Attending Unavailable DASIA PATRICIA Attending Unavailable DASIA PATRICIA Attending Unavailable Allergies Allergy Classification Reported Allergen(s) Allergy Type Date of Onset Reaction(s) Facility Cephalosporins (antibiotic) (2 sources) Cephalosporins (Antibiotic) Drug Allergy 4 [facility], [facility] (7 sources) Cephalexin Drug Allergy 1 leg swelling [facility] (20 sources) Cephalexin; Translations: [CEPHALEXIN] Drug Allergy 7 Other, Unknown [facility] Comment on above: severe muscle weakne ss (20 sources) Cephalosporins (Antibiotic); Translations: [Cephalosporins] Allergy to substance 4 [facility] Medications Current Medications Medication Drug Class(es) [...] day. Active take 4 capsules by [facility] every twenty-four hours Biotin 1 MG 4 [...] Active Start: 06-21-2024 take 2 tablets by [facility] once daily Calcium Citrate-Vitamin D3 (Calcium Citrate [...] Active Start: 06-23-2024 take 1 capsule by [facility] twice daily Celecoxib 200 mg capsule Active 200 MG PO Twice daily June 22, 2024 11:00pm DO NOT RECONCILE UNTIL DOS:07/05/2024 MED TO BED clindamycin 300 mg oral capsule (17 sources) Lincosamide Antibacterial Start: 06-22-2024 End: 06-22-2024 [...] 05/14/2024 Active dexamethasone 2 mg oral tablet (20 sources) Corticosteroid dexAMETHasone (Decadron) 2 MG tablet 1 (one) time each day at the same time. Active docosahexaenoic acid 120 mg / eicosapentaenoic acid 180 mg oral capsule (20 sources) omega-3 (Fish Oi l) 1000 MG [...] every week ergocalciferol (Vitamin D-2) 1.25 MG (15534 UT) capsule Indications: Vitamin D deficiency Take 1 capsule (1.25 mg) by mouth 1 (one) time per week 12 capsule 3 11/29/2024 11/29/2025 Active Start: 08-12-2019 take 1 capsule by mo uth every week ergocalciferol (Vitamin D-2) 1.25 MG (90906 UT) capsule Take 1 capsule (50,000 Units) [...] Daily 90 tablet 3 11/29/2024 11/29/2025 Active Xhxp-Kstsm-Xy0-Dha-Epa- Fish-St (Glucosamine Chondroitin Plus) 696-868-30-54 mg Capsule (19 sources) Start: 08-11-2017 take 1 capsule by mouth once daily Vfvq-Xrwht-Kg6-Dha-Epa-F zane-St (Glucosamine Chondroitin Plus) 890-446-22-54 mg Capsule Active 1 CAP PO Daily August 11, 2017 12:00am Start: 08-11-2017 take 1 capsule by mouth once daily Uyti-Hiqko-Ec8-Udd-Bej-Camo-St (Glucosam ine Chondroitin Plus) 503-077-21-54 mg Capsule Active 1 CAP PO Daily August 11, 2017 1:00am glucosamine sulfate 500 mg oral capsule (20 sources) Glucosamine 500 MG capsule 1 (one) time each day at the same time. Active Glucosamine Chondroitin Plus - (8 sources) Glucosamine Jann droitin Plus - as directed Orally Active Ketoprofen (20 sources) Nonsteroidal Anti-inflammatory Drug Start: 11-29-2024 End: [...] 11 05/05/2023 05/04/2024 Active L-METHYLFOLATE CALCIUM PO (20 sources) take 1 tablet by jessica th in the morning L-METHYLFOLATE CALCIUM PO Take 1 tablet by mouth in the morning. Active take 1 tablet by mouth in the mo rning L-METHYLFOLATE CALCIUM PO Take 1 tablet by mouth in the morning. 0 Active N-Xdtagjxpgyvw-Zjcgf-B12-B6 (Metanx) 3-90.314-2-35 MG capsule (20 sources) Start: 11-29-2024 End: 11-29-2025 M-Onuidywrhugv-Jpzql-B12-B6 (Metanx) 3-90.314-2-35 MG capsule Indications: Lumbosacral radiculopathy , Disturbance of skin sensation Take 1 capsule by mouth Daily 90 capsule 3 11/29/2024 11/29/2025 Active Start: 05-05-2024 End: 11-29-2024 D-Oxtgigqrcqdj-Jvgej-B12-B6 (Metanx) 3-90.314-2-35 MG capsule Indications: Lumbosacral radiculopathy , Disturbance of skin sensation Take 1 capsule by mouth Daily 90 capsule 3 05/05/2024 11/29/2024 Discontinued (Reorder) Start: 05-05-2024 End: 05-05-2025 I-Ipphsjsetxya-Eyyun-B12-B6 (Metanx) 3-90.314-2-35 MG capsule Indications: Lumbosacral radiculopathy , Disturbance of skin sensation Take 1 capsule by mouth Daily 90 capsule 3 05/05/2024 05/05/2025 Active Start: 05-05-2023 End: 05-04-2024 H-Sinpjdffltfi-Hlkak-B12-B6 (Metanx) 3-90.314-2-35 MG capsule Indications: Lumbosacral radiculopathy [...] 2017 1:00am melatonin 2.5 mg chewable tablet (20 sources) Melatonin 2.5 MG chewable tablet Chew. Active meloxicam 15 mg oral tablet (7 sources) Nonsteroidal Anti-inflammatory Drug take 1 tablet by mouth every twenty-four hours Meloxicam 15 MG 1 tablet Orally Once a day Active Metanx 3-90.314-2-35 MG (9 sources) Metanx 3-90.314- 2-35 MG as directed Orally Active Misc Natural Products (YumVs Beet Root-Tart Diallo) 250-0.5 MG chewable tablet (20 sources) Misc Natural Products (YumVs Beet Root-Tart Diallo) 250-0.5 MG chewable tablet Chew. Active Misc Natural Pro ducts (YumVs Beet Root-Tart Diallo) 250-0.5 MG chewable tablet Chew. 0 Active Multiple Vitamins-Minerals (Ocular Vitamins) tablet (13 sources) Multiple Vitamins-Minerals (Ocular Vitamins) tablet take 2 tablet by oral route Active naproxen 250 mg oral tablet (20 sources) Nonsteroidal Anti-inflammatory Drug naproxen (Naprosyn) 250 MG tablet Take by mouth. Active [place] 3 (8 sources) [place] 3 Active [place] 3,6,9 Combination No.7 ([place] Dha) 92 mg (43 mg-22 [id number]) Tablet,Chewable (19 sources) Start: take 1 tablet by mouth once daily [place] 3,6,9 Combination No.7 ([place] Dha) 92 mg (43 mg-22 [id number]) Tablet,Chewable Active 1 TAB PO Daily August 11, 2017 12:00am Start: 08-11-2017 take 1 tablet by jessica once daily [place] 3,6,9 Combination No.7 ([place] Dha) 92 mg (43 mg-22 [id number]) Tablet,Chewable Active 1 TAB PO Daily August [...] 11:00pm sodium fluoride 0.011 mg/mg oral gel (20 sources) sodium flouride (Prevident, [place]) 1.1 % dental gel USE DIRECTED TWICE A DAY Active fluoride, sodium , 1.1 % gel USE DIRECTED TWICE A DAY Active tiZANidine 4 mg oral tablet (20 sources) Central alpha-2 Adrenergic Agonist take 1 [...] 2024 12:00am take 1 capsule by mo [facility] twice daily turmeric 400 mg capsule Take 1 capsule by mouth twice a day. Active Turmeric (QC Diane reji Complex) 500 MG capsule 1 (one) time each day at the same time. Active Turmeric (QC Diane reji Complex) 500 MG capsule 1 (one) time each day at the same time. 0 Active Turmeric Active valACYclovir 1000 mg oral tablet (20 sources) Herpesvirus Nucleoside Analog DNA Polymerase Inhibitor, Herpes Simplex Virus Nucleoside Analog DNA Polymerase Inhibitor, Herpes Zoster Virus Nucleoside Analog DNA Polymerase Inhibitor Start: 04-14-2023 valACYclovir (Valtrex) 1 g tablet Indications: Herpes simplex labialis Take 2 tablets twice a day x 1 day at first start of outbreak 4 tablet 04/14/2023 Active Vit A,C And Q-Zwlxfn-Rckukqtc (Eye Health Plus Lutein) 1,000 unit-200 mg-60 unit-2 mg Tablet (19 sources) Start: 08-11-2017 take 1 tablet by mouth once daily Vit A,C And C-Hmoxha-Cdawrmlu (Eye Health Plus Lutein) 1,000 unit-200 mg-60 unit-2 mg Tablet Active 1 TAB PO Daily August 11, 2017 12:00am Start: 08-11-2017 take 1 tablet by jessica once daily Vit A,C And Y-Rcgujt-Omatpmmg (Eye Health Plus Lutein) 1,000 unit-200 mg-60 [...] 05/04/2024 Active take 1 capsule by mo [facility] once daily alpha tocopherol (Vitamin E) 670 [...] 12:00am zinc gluconate 50 mg oral tablet (20 sources) take 1 tablet by jessica in [...] Discontinued 1 EACH PO Twice daily 2844 May 02, 2024 11:00pm May 14, 2024 7:42am Chocolate Flavor Start: 05-03-2024 End: 05-14-2024 Food Supplemt, Lactose-Reduc ed (Boost High Protein) 0.08 gram- 1.1 kcal/mL liquid Discontinued 1 EACH PO Twice daily 2844 May 03, 2024 12:00am May 14, 2024 [...] DOS:07/05/2024 MED TO BED polyethylene glycol 3350 31204 mg powder for oral solution (10 sources) Osmotic Laxative Start: 06-23-2024 End: 08-18-2024 Polyethylene Glycol 3350 (Miralax) 17 gram/dose powder Discontinued 17 GM PO daily 7 June 22, 2024 11:00pm August 18, [...] Episodic Administrative/social admission (6 sources) Informing health patient care technician of test result; Translations: [Person consulting for [...] Onset: 05-18-2018 Chronic Disorders of lipid metabolism (20 sources) Hyperlipidemia, unspecified; Translations: [Mixed hyperlipidemia] Onset: 04-25-2023 Chronic Glaucoma (16 sources) Open-angle glaucoma of left eye; Translations: [Primary open-angle glaucoma, left eye, mild stage] Onset: 05-05-2024 05-05-2024 Chronic Headache; including migraine (20 sources) Tension-type headache; Translations: [Tension-type headache, unspecified, [...] [Traumatic arthropathy, left hip] Onset: 03-28-2016 Chronic Melanomas of skin (20 sources) History of malignant melanoma of the skin; Translations: [Personal history of malignant melanoma of skin] Onset: 03-06-2020 02-24-2023 Episodic Mycoses (20 sources) Tinea pedis; Translations: [Tinea [...] 08-09-2024 Episodic Other and unspecified benign neoplasm (4 sources) Melanocytic nevus of trunk; Translations: [Melanocytic nevi of trunk] 10-14-2024 Episodic Other circulatory disease (4 sources) Elevated blood-pressure reading without diagnosis of hypertension; Translations: [Elevated blood-pressure reading, without diagnosis of hypertension] Episodic Other circulatory disease (2 sources) Spider nevus; Translations: [Nevus, non-neoplastic] 06-21-2025 Episodic Other connective tissue disease (20 sources) [...] Episodic Other ear and sense organ disorders (20 sources) Mixed conductive and sensorineural hearing loss, [...] Episodic Other nervous system disorders (20 sources) Disorder of right femoral nerve; Translations: [Lesion of femoral nerve, right lower limb] Onset: 02-18-2023 02-18-2023 Chronic Other nervous system disorders (13 sources) Bilateral carpal tunnel syndrome; Translations: [Carpal tunnel syndrome, bilateral upper limbs] Onset: 07-06-2024 07-06-2024 Chronic Other nervous system disorders (2 sources) Carpal tunnel syndrome of left wrist; Translations: [Carpal tunnel syndrome, left upper limb] 11-29-2024 Chronic Other non-traumatic joint disorders (4 sources) Pain [...] [Pilar cyst] 10-14-2024 Episodic Other skin disorders (4 sources) Lentiginosis; Translations: [Other melanin hyperpigmentation] 10-14-2024 Episodic Other skin disorders (4 sources) Seborrheic keratosis; Translations: [Other seborrheic keratosis] [...] Retinal detachments; defects; vascular occlusion; and retinopathy (16 sources) Exudative age-related macular degeneration; Translations: [Exudative age-related macular degeneration, bilateral, with active choroidal neovascularization] Onset: 05-05-2024 05-05-2024 Chronic Skin and subcutaneous tissue infections (4 sources) Localized infection of skin AND/OR subcutaneous tissue; Translations: [Local infection of the skin and subcutaneous tissue, unspecified] Episodic Syncope (13 sources) Syncope; Translations: [Syncope [...] PAPILLOMAVIRUS] Onset: 09-16-2022 Episodic Malaise and fatigue (20 sources) Weakness; Translations: [Asthenia] Onset: 08-14-2021 02-18-2023 Episodic Open wounds of extremities (4 sources) Open wound of hand except fingers with complication; Translations: [Laceration with foreign body of right hand, initial encounter] Onset: 05-02-2017 Episodic Other and unspecified benign neoplasm (20 sources) Benign neoplasm of skin; Translations: [Other benign neoplasm of skin, unspecified] Onset: 06-28-2015 02-18-2023 Episodic Other ear and sense organ disorders (20 sources) Mixed conductive AND sensorineural hearing loss; Translations: [Mixed conductive and sensorineural hearing loss, unspecified] Onset: 02-24-2023 Resolved: 09-13-2024 02-24-2023 Chronic Other ear and sense organ disorders (20 sources) Tinnitus; Translations: [Tinnitus, unspecified ear] Onset: [...] 09-13-2024 02-18-2023 Chronic Other nervous system disorders (20 sources) Skin sensation disturbance; Translations: [Unspecified disturbances of skin sensation] Onset: 02-18-2023 02-18-2023 Episodic Other nervous system disorders (20 sources) Hip pain; Translations: [Other acute postprocedural pain] Onset: 02-18-2023 06-09-2023 Episodic Other non-traumatic joint disorders (20 sources) Arthralgia of the pelvic region and [...] breast] Onset: 01-06-2014 Episodic Residual codes; unclassified (20 sources) Insomnia; Translations: [Insomnia, unspecified] Onset: 08-14-2021 02-18-2023 Episodic Residual codes; unclassified (20 sources) History of hernia repair; Translations: [Other specified postprocedural states] Onset: 10-17-2022 05-08-2023 Episodic Residual codes; unclassified (19 sources) History of repair of mitral valve; Translations: [Other specified postprocedural states] Onset: 08-04-2023 08-09-2024 Episodic Spondylosis; intervertebral disc disorders; other back problems (20 sources) Radiculopathy, lumbosacral region; Translations: [Lumbar radiculopathy] Onset: 08-27-2021 02-18-2023 Episodic Unclassified (1 source) Onset: 08-09-2024 08-09-2024 Viral infection (20 sources) Herpesviral vesicular dermatitis; Translations: [Herpesviral vesicular dermatitis] Onset: 03-08-2015 02-18-2023 Episodic Results Test Name Value Interpretation Reference Range Facility Coding Summaryon 10-27-2024 Coding Summary HTMLBase 64 EzuohpyiBWk1aEe+PGhlYWQ+PE 4NVJTvT78ilDGfaQ3hL3BHDLfK LixzNLSMHJpDIzKsttUnTQ9imD NjZXJu IC8+TH8gFSReNvkjdXVnj1V2bK X0R30cbq3nVMktwCB2JWLnYvFq kxtbv3bemIo9FBruZjrlAuYc FXRunZ78HRP9pI65Mk08lTGdmY Afd7kbfJu5AxMfKRXtVZI1sQaa GWwjs2RcAXOiN08jvDSod4K7 HTQqoKeleYWqJdRcfRV3fF2aSN vjtlckt9kvvescCqg9be86vBZs x4U4xKW8Y7WyhuN6XRNnnXZz OfecsSAYdN6stgcna8uahrbzQz ZcASViOEn3HQb7AAQvlNfaOrJg GE32XHJ8FTVcyeOrA3FeOJRp xBhbXzF7u4R2Td5WZ1XPQwsqO1 VNTUFSWTwvdGQ+AZ36qp78F3Pi AvmyOwn1MNMaNZE3rOE3hL0y VZYmRYeyc8F2oZD1U2LuflIxva 0bf3uqZFHkWIsiS56xgNPjc1V3 NMZqvMA2WOBtiFjsNjWquV35 Oyc+JTEufWgqt0ZpBkccr0egc5 bukQf2XimoOLMmpnEkfYdaZCQ8 i3GpWs5dXRCjxZM3tIM4zL9j RdGmXjJ2OBbkV064OzQrxTXzTw glF14yW0ZzgHJ+TVHqPcr7SLLf bLlcSN0cX1VpWDJwijiwtZXm aPvdIM2zBKBuofujLZKwxC5kKV DpR0a4ZvZuYaJ2TGdkD8YcAGSy iyvhOl06cR6kZqQkMvE3ZPav W0RtsgG5YMQfwYExLVcpXXM6Q7 0bi1A9ZZKbZZRuRLE9hWM7yW8c bGlnbjogbGVmdDsgdmVydGlj GQuwFZddJ907JVTgsVlwBtKfDI luZyBEYXRlOiAgMDEvMjIvMjAy NTwvdGQ+LJFxTPW3cMcsBIDy oOReNPfnYd3dzAnayQfoIT1nVT DkirzcWXSxgW2eHZPzaIGtdHxv SB9yXTDrgnvxq425KqGfUMS7 KELojXQxQ9MvtJ7lQaSyWMGsHS OsN4SbrBHeSNtuB563MXhfPaV4 ABRhqjXzH3InFLXbnNpcYsX6 d9J7Hk6At0UwtuxhK0ClpDTrOd GcNqcxRPv2C9AgGrnprPS+PC90 PVKbDW75EMd1IAH2mIrqZHxl YKPeJ9JukG3qSnVoENLaFTIiQs c+PHRhYmxlIHdpZHRoPScxMDAl FjKqoSzcRH8tUy5dFIUaFIIc sYdwjGNzAnCdm2wxXPPiZPudKC 1rhSxmI6ZbmOF4WDDdr8k4An67 Y68qA7JbjUU+QKFenKJ4xZZ1 wV5iNfViFdK3ACrzQ998QnYdfE JkVbpew8dma0xalIl4BmP4ZTIj adHyvXdoMIH7k7VzIo35N60o IHdpZHRoPSIxNSUiIHZhbGlnbj 1shZ5vIr4+VPGzaOB1oWG1bR0q MbWoIyZ8INmgX551GmOrqEWj Rcwqm2kry3dumKl3BxStNOAwzn BqkHccBFE0r1GnIo84Q1LvrKtw p3LhBup4ks03vTJht5P5hEN6 D5WzBKKrfzrprAZoaFkyXF0xBX UjniziVUWwcB4fNHBtP3m0KkEf PiV1YUuvP9BggzL7MYMvxGMl TQTimUZShR3skiebg8psfysrWg JmBONbDRq3ZDu4DBEuqStcFzVe LCF8VnK6CEE7mOMpyL6qiMac ucgviR8gLvm+PHX0vGYkrFZZGC 1lOjwvdGQ+JEKeAVN1vXkwNCzs GKMewD1qFNQuK9q8IwIeGzM1 PUjjE7HterX1BNUzuNFbXWDcgK GKlJ7nlxrtj7vrplxpWbIoJGSi PXz4XXr8OGCxkDykRiPnFMH7 EcM0LJM8iSZidU1ndAujcchgkV 9wOyc+CujttCnzAMQ2TRt2J7Uv Tfs2UZYevNgoYG1byPJwYFkp Rf0jyZzoaUlfVI6cNKIidctxg2 66WwYvb3swVDYurCUiVLmqVMG7 Z28cq2W2JYIeWWJtCFY1uXA4 sQ7ccVbwlsabfJRxrDnacrXunU jcLDekOJuqT659NPNfkNncMhAh HIn1W2CbTcb4OSYyuUwaCG5w eVFmPDcwSk3bpFekpKpyAB3oVI Woolcwm308NdRep8kzTBMloDPw ECmcWIC0H68uz6H5OIMmLYMi CTH6wZZ9bA0yjHbwpsaveTBngS obxxWmyCrcESamBMtvC726ZBQe nQpeSaAijYr2A9MpTig1JQOj wMozTV3iiTJqFPqbJr5ppQiglY xoHG8sKQNxkuepz852TyDxg8bp DIXwsQSwLVysZCK8Y32vr0W1 RCJzOXZgTBN7kZN0lB7kkWypyq ogbGVmdDsgdmVydGljYWwtYWxp A660UCArkPsfPbNkpCedbiIn NJfmPZw1V9AoWjmndBT+PC90YW CfVW86dUVcjELzj2fywFx3WeTl KRKmIPG6lVhmNQtoq2KvKUOj N76vtQGso9M3MIIsoMtueJAmGl IxtWB9oT3uUNkjwjkcl7usjusm Pxgqu9ptpw19uH29O97jEZjq TOIqBWWhGOFsRKZzrBhqnk9ykE 9wIi8+ICJwyGP6hVU0yV3mCEJr AiR3RUrfF899MtQugCNuOduo x8mrp0bpfPb2PmH0UKZfprJchG svUDW1b9TpSn43P70eINcfCFJb HICyIQNgLWSkhSjqff8beU0p Ii8+MLRcrQR6jNF1xX6cXhVpFb N6BAguP005XkFozJKtAuyxM25i U1QmfYR+VWMsQwr5XDJezHwd NW8fcYUfMOsnMg2bKGF1QrIkFm ZgTImfJ7ThYQDhwauypvbmqAG0 ENQcBHIviN17Sb0kjRfdLCVa qREVzP4rnezpp9imzprzFiJtGM OgSGz1BEo2SGMeuLgxKzDyTJN2 SqJ3QLY4mZJkkN8umKjicyhn yX2nS8LiXUZbggfzJe26tX3lFi WdPrJ2BBpnFqn+WklFQkVSLCBK RUFOIEFOTjwvdGQ+PHRkIHN0 jTouAHlfRMFvsJ8jZTVyT2k3Er CsCyF6XDyfD9DzSXRcztyhAk25 bE9xDlHeJzS1PYtvW2HeysM9 FGOiiMOaIEsxXIH6Z86pm1K5RF GqYCDoWYJ7cCH0iE7uyXbykjca bGVmdDsgdmVydGljYWwtYWxp Z397JNPbpCntAzElTqVpDeI7CY I4Y9IdFkr4SMBzgPhkKE6tpKIi QLbwJh8cbOworMntAJ0lMMOk uajsTMLrvT4bOWApjPOmfIjaJW 0dKKNemfjzy391InXnWGE1OXFo tIKlV3AukP0aMvIwUEUqBDEy C3QlgWYjQPtwW661AQrfInB9QD MmnaEsA1CcJZRagRxiUkV4j1S2 Nu05HPUHYQUvaelaoFP+PHRk JWH9zTqrRWzhFVCkdU2pFAVyU6 r4TwOdAfN6WLwnS2BeJNYxsjxm Qi93jV9xFbNrOgO9YOyuQ3Uq txX8CXCohFYzTErcFJJ0B89fc1 J0CXHiCZZaCCJ7sHO9sA4ckKhc bjogbGVmdDsgdmVydGljYWwt OAxaM978WYYdcEqlIsDQQJTZDR wvdGQ+DHSeKPR1hEtxNCdbGRWm sY1fIJWmI7m9GsIxRvQ1OYus Y9MkANHutumkLz52vK3uFpMeOv L7GMqvE2MbuxV9IFLzaNYxMBrr PIY2W95ye5S7EDVbWTSjLHO1 rSV8xC5dxYrsovkdeYKetImjww BmxEayMCkjEJcnJ290RAFqiYgi Ra2BCM43EM39D4CbUilzhADc bGU+PHRhYmxlIHdpZHRoPScxMD UrFzAlgUrsLF3mPe1vMDBoEAPb yBqumYIuSsGdv5icMBVbIRxa WT5rrOegO4UclYJ2DLRfh4n2Rl 58G54dY7OveDB+QYLshRP1kKE7 dW4yWmLkJmH3YGtfN855MoJx zAAcMdfpi9ipt0hpcUc8RvKlTR RwcyMrpLexTHH3u0RzYe44K79d IHdpZHRoPSIyMCUiIHZhbGln lz2ynS2kXp4+BMJcyIV5aEV4pN 8kEgJkHvN2BGhrV493QpMvcWZh XefgM94rG3GvfXC+PHRyPjx0 SSUfvFuiOM4fvNVxCRgaQp1qSW L1LvXhSfYeIPndC3ToOWJosbic mrqwfMB5YFZqVCWnqD47Du0n qNwxKa6zAAOfJCX0WPOcvWFwU8 TtwH5kCaBdPVXeAVWeM4TnhDHa NEmuT550IZpiEbW7BNEsqhWv M9TrXLYkiRrfGlN3o1K1Jj0BaF khyBMqYB5lXqIhCEy9P8TkOff9 JOHglPukMR6qnQBtCUbgVf3s sSjqeOgjSL3tNZGqstxmv210Mh Wtk2mxUAZgdVJvATvqKZU7Y02e t7W2OBEzANChEOZ7oQI6gD4h bGlnbjogbGVmdDsgdmVydGljYW qaCPofH649BRWtoGwwByGHAaj1 F9RyWef7IJOcjNgqNR3jeIGg GMpnYc4noOtchAcuBP0mTAQzcz cyi988VgOgn7ujGVNbrWHwWVdy NIK2M09jx3K3IQSjEONtVZD1 iGJ5oL4scQiuulcrxPIzcRjoms HgjJdtVKqtRCosV152UZDjtIrb Uo7RQkf0Z7GuKbl7EYPfpPzy BE5rrMBqRFnkYh9acOhvyYfnWE 9qKEEsjfkwd581PmAir4vkCAQg oWIfDOsfWNO6O53oo9D7NGCc AQIsLQA7aFZ0mV0ksEuvfzjyrJ GgzDoxtwYmeUulRZazSQooG679 IHRvcDsnPlBheWVyOjwvdGQ+ WX71ko45T4KdMcllQwp0VAFsJW U6aCJ6dM3uTIIcELvvj7S9qDT0 U8RswvRuut7hk7oqEPRcOTyw Y29 (more content not included)... [facility] Provider Orderson 10-19-2024 Provider Orders [id number] FF [facility] XR Spine Scoliosis Study Sta [place]ding[place] [...] Brodie Epps MD 10/20/24 7:26 am Technologist: RANDI ELAM Normal [facility] XR hip LT min 2V(w/wo pelvis )*on 10-01-2024 XR hip LT min 2V(w/wo pelvis)* [facility] [address] [place] [address] XRay Report Signed Patient: Thiago Sabillon MR#: [id number] 5 : 1950 Acct:[id number] Age/Sex: 73 / F ADM Date: 10/01/24 Loc: [facility] Room: Type: [facility] Attending Dr: Vernell Alvarez II, MD Copies [...] Dasia Cervantes M.D.10/01/2024 2:27 PM Dictation Location: [place] [address] Transcribed By: [facility] 10/01/24 1427 Dictated By: Dasia Cervantes MD 10/01/24 142 Signed By: 10/01/24 1427 Normal [facility] X-ray reportOrdered By: Nolberto Avilez on 08-18-2024 Study report [facility] [address] [place] [address] XRay Report Signed Patient: Thiago Sabillon MR#: [id number] : 1950 Acct:[id number] Age/Sex: 73 / F ADM Date: 4 Loc: [facility] Attending Dr: Vernell Alvarez II, MD Copies [...] Aden Avilez M.D.08/18/2024 4:53 PM Dictation Location: [place] [address] Transcribed By: [facility] 08/18/241652 Dictated By: Aden Avilez DO 08/18/241650 Signed By: 08/18/24 165 [facility] XR hip LT min 2V(w/wo pelvis )*on 08-18-2024 XR hip LT min 2V(w/wo pelvis)* [facility] [address] [place] [address] XRay Report Signed Patient: Thiago Sabillon MR#: [id number] 5 : 1950 Acct:[id number] Age/Sex: 73 / F ADM Date: 08/18/24 Loc: [facility] Room: Type: [facility] Attending Dr: Vernell Alvarez II, MD [...] Aden Avilez M.D.08/18/2024 4:53 PM Dictation Location: [place] [address] Transcribed By: [facility] 08/18/24 1653 Dictated By: Aden Avilez DO 08/18/24 165 Signed By: 08/18/24 165 Normal [facility] XR low pelvis w/LT x-table h ipon 07-16-2024 XR low pelvis w/LT x-table hip [facility] [place] [address] XRay Report Signed Patient: Thiago Sabillon MR#: [id number] 5 : 1950 Acct:[id number] Age/Sex: 73 / F ADM Date: 07/05/24 Loc: [place] Room: Type: [facility] Attending Dr: Vernell Alvarez II, [...] complication. Impression dictated by: Daniel Rudolph Jr., Jr07/16/2024 10:21 AM Dictation Location: [id number] Transcribed By: [facility] 07/16/24 1021 Dictated By: Daniel Rudolph Jr, DO 07/16/24 1020 Signed By: 07/16/24 1021 Normal [facility] US carotid doppler BIon 10- US carotid doppler BI [facility] [address] [place] [id number] Ultrasound Report Signed Patient: Thiago Sabillon MR#: [id number] 5 : 1950 Acct:[id number] Age/Sex: 73 / F ADM Date: 07/06/24 Loc: Room: 4P4363-4 Type: DIS IN Attending Dr: Shaun Yang [...] Aden Martínez M.D.07/08/2024 12:45 PM Dictation [facility] Tech: Jaylyn Arriaza Transcribed By: AMANDA 07/08/24 1245 Dictated By: Aden Martínez MD 07/08/24 1244 Signed By: 07/08/24 1245 Normal [facility] Appearance of UrineOrdered B y: Jose Guthrie on 07-07-2024 Appearance (U) Urine appearance Clear [facility] Automated basophil %Ordered By: Savannah Wen on 07-07-2024 Basophils/100 WBC (Bld) 0.4 % Normal . [facility] Comment on above: Order Comment: REDRA W Performed By: #### C K, PTT, CBC, PT, MG, CMP, HS TROP, BNP #### [facility] [address] [place] [address] Automated basophil countOrde red By: Savannah Wen on 07-07-2024 Basophils (Bld) [#/Vol] 0.0 10*3/uL Normal 0.0-0.2 [facility] Comment on above: Order Comment: REDRA W Result Comment: PERF ORMED BY: [place] [address] PATHOLOGIST FLOORMAN KRISTINA ENNIS M.D. Performed By: #### C K, PTT, CBC, PT, MG, CMP, HS TROP, BNP #### [facility] [address] Automated blood monocyte cou ntOrdered By: Savannah Wen on 07-07-2024 Monocytes (Bld) [#/Vol] 0.8 10*3/uL Normal 0.0-0.8 [facility] Comment on above: Order Comment: REDRA W Performed By: #### C K, PTT, CBC, PT, MG, CMP, HS TROP, BNP #### [facility] [address] [place] [address] Automated eosinophil %Ordere d By: Savannah Bettye on 07-07-2024 Eosinophils/100 WBC (Bld) 0.7 % Normal . [facility] Comment on above: Order Comment: REDRA W Performed By: #### C K, PTT, CBC, PT, MG, CMP, HS TROP, BNP #### [facility] [address] Automated eosinophil countOr dered By: Savannah Wen on 07-07-2024 Eosinophils (Bld) [#/Vol] 0.0 10*3/uL Normal 0.0-0.45 [facility] Comment on above: Order Comment: REDRA W Performed By: #### C K, PTT, CBC, PT, MG, CMP, HS TROP, BNP #### [address] Automated monocyte %Ordered By: Savannah Wen on 07-07-2024 Monocytes/100 WBC (Bld) 11.5 % Normal . [facility] Comment on above: Order Comment: REDRA W Performed By: #### C K, PTT, CBC, PT, MG, CMP, HS TROP, BNP #### [facility] [address] [place] [address] Automated neutrophil %Ordere d By: Savannah Wen on 07-07-2024 Neutrophils/100 WBC (Bld) 69.5 % Normal . [facility] Comment on above: Order Comment: REDRA W Performed By: #### C K, PTT, CBC, PT, MG, CMP, HS TROP, BNP #### [address] Basic Metabolic Panelon 100 Anion gap [Moles/Vol] Not performed Normal 6.0-15.0 [facility] Comment on above: Order Comment: pt wood ving ultrasound Performed By: #### B MP #### [address] Creatinine Clr Calc Pharmacy 54.08 Normal [facility] Comment on above: Order Comment: pt wood ving ultrasound Result Comment: PERF ORMED BY: [place] [address] PATHOLOGIST FLOORMAN KRISTINA ENNIS M.D. Performed By: #### B MP #### [address] GFR/1.73 sq M.predicted MDRD (S/P/Bld) [Vol rate/Area] mL/min/{1.73_m2} Normal [facility] Comment on above: Order Comment: pt wood ving ultrasound Performed By: #### B MP #### [address] Potassium Normal 3.5-5.1 [facility] Comment on above: Order Comment: pt wood ving ultrasound Result Comment: Spec imen hemolyzed, redraw requested Performed By: #### B MP #### [address] Basophils Auto (Bld) [#/Vol] Ordered By: Savannah Wen on 07-07-2024 Basophils (Bld) [#/Vol] Automated basophil count 0.0-0.2 [facility] Basophils/100 WBC Auto (Bld) Ordered By: Savannah Wen on 07-07-2024 Basophils/100 WBC (Bld) Automated basophil % . [facility] Bilirubin Test strip Ql (U)O rdered By: Jose Guthrie on 07-07-2024 Bilirubin Ql (U) Negative Negative [facility] Bilirubin Ql (U) Bilirubin.total [Pre sence] in Urine by Test strip Negative [facility] Calcium [Mass/volume] in Ser um or PlasmaOrdered By: Savannah Wen on 07-07-2024 Calcium [Mass/Vol] 7.6 mg/dL Low 8.6-10.3 [facility] Comment on above: Order Comment: pt wood ving ultrasound Performed By: #### B MP #### [address] Calcium [Mass/Vol] Calcium [Mass/volume ] in Serum or Plasma Low 8.6-10.3 [facility] Carbon dioxide, total [Moles /volume] in Serum or PlasmaOrdered By: Savannah Wen on 07-07-2024 CO2 [Moles/Vol] 23.5 mmol/L Normal 21.0-31.0 [facility] Comment on above: Order Comment: pt wood ving ultrasound Performed By: #### B MP #### [address] CO2 [Moles/Vol] Carbon dioxide, tota l [Moles/volume] in Serum or Plasma 21.0-31.0 [facility] Chloride [Moles/volume] in S moe or PlasmaOrdered By: Savannah Wen on 07-07-2024 Chloride [Moles/Vol] 105 mmol/L Normal 98-107 [facility] Comment on above: Order Comment: pt wood ving ultrasound Performed By: #### B MP #### [address] Chloride [Moles/Vol] Chloride [Moles/vol ume] in Serum or Plasma 98-107 [facility] Color Auto (U)Ordered By: Jay Guthrie on 07-07-2024 Color (U) Color of Urine by Auto Yellow [facility] Color of Urine by AutoOrdere d By: Jose Guthrie on 07-07-2024 Color (U) Light-yellow Normal Yellow [facility] Comment on above: Order Comment: Name Collection Type:: Voided Performed By: #### U A #### [address] Complete Blood Count Auto Di ffon 07-07-2024 Mean Corpuscular HGB Conc 33.9 g/dL Normal 32.0-35.0 [facility] Comment on above: Order Comment: REDRA W Performed By: #### C K, PTT, CBC, PT, MG, CMP, HS TROP, BNP #### [address] NRBC% 0.0 /100{WBC} Normal 0-0.5 [facility] Comment on above: Order Comment: REDRA W Performed By: #### C K, PTT, CBC, PT, MG, CMP, HS TROP, BNP #### [facility] [address] Creatinine [Mass/volume] in Serum or PlasmaOrdered By: Savannah Wen on 07-07-2024 Creatinine [Mass/Vol] 0.45 mg/dL Low 0.60-1.20 [facility] Comment on above: Order Comment: pt wood ving ultrasound Performed By: #### B MP #### [facility] [address] [place] [address] Creatinine [Mass/Vol] Creatinine [Mass/v olume] in Serum or Plasma Low 0.60-1.20 [facility] echo transthoracicon [facility] echo transthoracic [facility] Main [place] [address] [place] [address] Echocardiogram Signed Patient: Thiago Sabillon MR#: [id number] 5 : 1950 Acct:[id number] Age/Sex: 73 / F ADM Date: 07/06/24 Loc: Room: [address] [place] [address] Type: ADM IN Attending Dr: Shaun Yang MD Ordering Provider: TORI Merritt Date of Service: 07/06/2410/29/2336 [facility] echo transthoracic: Syncope Copies to: TORI [...] Model (more content not included)... Normal [facility] Eosinophils Auto (Bld) [#/Vo l]Ordered By: Savannah Wen on 07-07-2024 Eosinophils (Bld) [#/Vol] Automated eosinophil count 0.0-0.45 [facility] Eosinophils/100 WBC Auto (Bl d)Ordered By: Savannah Wen on 07-07-2024 Eosinophils/100 WBC (Bld) Automated eosinophil % . [facility] Erythrocyte distribution wid th Auto (RBC) [Ratio]Ordered By: Savannah Wen on 07-07-2024 Erythrocyte distribution width (RBC) [Ratio] Erythrocyte distribution width [Ratio] by Automated count 11.9-15.3 [facility] Erythrocyte distribution wid th [Ratio] by Automated countOrdered By: Savannah Wen on 07-07-2024 Erythrocyte distribution width (RBC) [Ratio] 14.5 % Normal 11.9-15.3 [facility] Comment on above: Order Comment: REDRA W Performed By: #### C K, PTT, CBC, PT, MG, CMP, HS TROP, BNP #### [facility] [address] Erythrocytes [#/volume] in B lood by Automated countOrdered By: Savannah Wen on 07-07-2024 RBC (Bld) [#/Vol] 3.84 10*6/uL Normal 3.60-5.00 [facility] Comment on above: Order Comment: REDRA W Performed By: #### C K, PTT, CBC, PT, MG, CMP, HS TROP, BNP #### [facility] [address] [place] [address] [place] Glucose [Mass/volume] in Ser um or PlasmaOrdered By: Savannah Wen on 07-07-2024 Glucose [Mass/Vol] 90 mg/dL Normal 70-100 [facility] Comment on above: ADA recommended refe rence rangeRandom Glucose Reference Range is dependent on time and content of last meal. Glucose of more than 200 mg/dL in a nonstressed, ambulatory subject supports the diagnosis of Diabetes Mellitus. Order Comment: pt wood ving ultrasound Result Comment: [place] om Glucose Reference Range is dependent on time and content of last meal. Glucose of more than 200 mg/dL in a nonstressed, ambulatory subject supports the diagnosis of Diabetes Mellitus. ADA recommended reference range Performed By: #### B MP #### [facility] [address] [place] [id number] [facility] Glucose [Mass/Vol] Glucose [Mass/volume ] in Serum or Plasma 70-100 [facility] Comment on above: ADA recommended refe rence rangeRandom Glucose Reference Range is dependent on time and content of last meal. Glucose of more than 200 mg/dL in a nonstressed, ambulatory subject supports the diagnosis of Diabetes Mellitus. Glucose [Mass/volume] in Uri ne by Test stripOrdered By: Jose Guthrie on 07-07-2024 Glucose Test strip (U) [Mass/Vol] Normal mg/dL Normal [facility] Glucose Test strip (U) [Mass/Vol] Glucose [Mass/volume] in Urine by Test strip Normal [facility] Hematocrit Auto (Bld) [Volum e fraction]Ordered By: Savannah Wen on 07-07-2024 Hematocrit (Bld) [Volume fraction] Hematocrit [Volume Fraction] of Blood by Automated count 34.0-46.4 [facility] Hematocrit [Volume Fraction] of Blood by Automated countOrdered By: Savannah Wen on 07-07-2024 Hematocrit (Bld) [Volume fraction] 36.2 % Normal 34.0-46.4 [facility] Comment on above: Order Comment: REDRA W Performed By: #### C K, PTT, CBC, PT, MG, CMP, HS TROP, BNP #### [facility] [address] [place] [id number] [place] Hemoglobin Test strip Ql (U) Ordered By: Jose Guthrie on 07-07-2024 Hemoglobin Ql (U) Negative Negative [facility] Hemoglobin Ql (U) Hemoglobin [Presence ] in Urine by Test strip Negative [facility] Hemoglobin [Mass/volume] in BloodOrdered By: Savannah Wen on 07-07-2024 Hemoglobin (Bld) [Mass/Vol] 12.3 g/dL Normal 11.8-15.4 [facility] Comment on above: Order Comment: REDRA W Performed By: #### C K, PTT, CBC, PT, MG, CMP, HS TROP, BNP #### [facility] [address] [place] [address] Hemoglobin (Bld) [Mass/Vol] Hemoglobin [Mass/volume] in Blood 11.8-15.4 [facility] Ketones Test strip Ql (U)Ord ered By: Jose Guthrie on 07-07-2024 Ketones Ql (U) Ketones [Presence] i n Urine by Test strip Negative [facility] Ketones [Presence] in Urine by Test stripOrdered By: Jose Guthrie on 07-07-2024 Ketones Ql (U) Negative Normal Negative [facility] Comment on above: Order Comment: Name Collection Type:: Voided Performed By: #### U A #### [facility] [address] [place] [address] Leukocyte esterase [Presence ] in Urine by Test stripOrdered By: Jose Guthrie on 07-07-2024 Leukocyte esterase Test strip Ql (U) Negative Normal Negative [facility] Comment on above: Order Comment: Name Collection Type:: Voided Performed By: #### U A #### [facility] [address] [place] [address] Leukocyte esterase Test strip Ql (U) Leukocyte esterase [Presence] in Urine by Test strip Negative [facility] Leukocytes [#/volume] correc maryjane for nucleated erythrocytes in Blood by Automated counOrdered By: Savannah Wen on 07-07-2024 WBC corrected for nucl RBC Auto (Bld) [#/Vol] 7.1 10*3/uL 3.8-11.6 [facility] WBC corrected for nucl RBC Auto (Bld) [#/Vol] Leukocytes [#/volume] corrected for nucleated erythrocytes in Blood by Automated coun 3.8-11.6 [facility] Leukocytes [#/volume] in Blo od by Automated countOrdered By: Savannah Wen on 07-07-2024 WBC (Bld) [#/Vol] 7.1 10*3/uL Normal 3.8-11.6 [facility] Comment on above: Order Comment: REDRA W Performed By: #### C K, PTT, CBC, PT, MG, CMP, HS TROP, BNP #### [facility] [address] [place] [address] Lymphocytes Auto (Bld) [#/Vo l]Ordered By: Savannah Wen on 07-07-2024 Lymphocytes (Bld) [#/Vol] Lymphocytes [#/volume] in Blood by Automated count 1.00-4.8 [facility] Lymphocytes [#/volume] in Bl ood by Automated countOrdered By: Savannah Wen on 07-07-2024 Lymphocytes (Bld) [#/Vol] 1.3 10*3/uL Normal 1.00-4.8 [facility] Comment on above: Order Comment: REDRA W Performed By: #### C K, PTT, CBC, PT, MG, CMP, HS TROP, BNP #### [facility] [address] [place] [address] [place] Lymphocytes/100 WBC Auto (Bl d)Ordered By: Savannah Wen on 07-07-2024 Lymphocytes/100 WBC (Bld) Lymphocytes/100 leukocytes in Blood by Automated count . [facility] Lymphocytes/100 leukocytes i n Blood by Automated countOrdered By: Savannah Wen on 07-07-2024 Lymphocytes/100 WBC (Bld) 17.9 % Normal . [facility] Comment on above: Order Comment: REDRA W Performed By: #### C K, PTT, CBC, PT, MG, CMP, HS TROP, BNP #### [facility] [address] [place] [address] MCH Auto (RBC) [Entitic mass ]Ordered By: Savannah Wen on 07-07-2024 MCH (RBC) [Entitic mass] MCH [Entitic mass] by Automated count 24.7-34.3 [facility] MCH [Entitic mass] by Automa maryjane countOrdered By: Savannah Wen on 07-07-2024 MCH (RBC) [Entitic mass] 32.0 pg Normal 24.7-34.3 [facility] Comment on above: Order Comment: REDRA W Performed By: #### C K, PTT, CBC, PT, MG, CMP, HS TROP, BNP #### [facility] [address] MCHC Auto (RBC) [Mass/Vol]Or dered By: Savannah Wen on 07-07-2024 MCHC (RBC) [Mass/Vol] 33.9 g/dL 32.0-35.0 [facility] MCHC (RBC) [Mass/Vol] MCHC [Mass/volume] by Automated count 32.0-35.0 [facility] MCV Auto (RBC) [Entitic vol] Ordered By: Savannah Wen on 07-07-2024 MCV (RBC) [Entitic vol] MCV [Entitic volume] by Automated count 80-100 [facility] MCV [Entitic volume] by Auto mated countOrdered By: Savannah Wne on 07-07-2024 MCV (RBC) [Entitic vol] 94.3 fL Normal 80-100 [facility] Comment on above: Order Comment: REDRA W Performed By: #### C K, PTT, CBC, PT, MG, CMP, HS TROP, BNP #### [facility] [address] Monocytes Auto (Bld) [#/Vol] Ordered By: Savannah Wen on 07-07-2024 Monocytes (Bld) [#/Vol] Automated blood monocyte count 0.0-0.8 [facility] Monocytes/100 WBC Auto (Bld) Ordered By: Savannah Wen on 07-07-2024 Monocytes/100 WBC (Bld) Automated monocyte % . [facility] Neutrophils Auto (Bld) [#/Vo l]Ordered By: Savannah Wen on 07-07-2024 Neutrophils (Bld) [#/Vol] Neutrophils [#/volume] in Blood by Automated count 1.8-7.7 [facility] Neutrophils [#/volume] in Bl ood by Automated countOrdered By: Savannah Wen on 07-07-2024 Neutrophils (Bld) [#/Vol] 4.9 10*3/uL Normal 1.8-7.7 [facility] Comment on above: Order Comment: REDRA W Performed By: #### C K, PTT, CBC, PT, MG, CMP, HS TROP, BNP #### [facility] [address] Neutrophils/100 WBC Auto (Bl d)Ordered By: Savannah Wen on 07-07-2024 Neutrophils/100 WBC (Bld) Automated neutrophil % . [facility] Nitrite Test strip Ql (U)Ord ered By: Jose Guthrie on 07-07-2024 Nitrite Ql (U) Negative Negative [facility] Nitrite Ql (U) Nitrite [Presence] i n Urine by Test strip Negative [facility] No Panel InformationOrdered By: Savannah Wen on 07-07-2024 Estimated GFR (CKD-EPI) > 60.0 mL/Min [facility] Creatinine Clearance (Chem 54.08 [facility] Nucleated erythrocytes [Pres ence] in Blood by Automated countOrdered By: Savannah Wen on 07-07-2024 Nucleated RBC Auto Ql (Bld) 0.0 /100{WBC} 0-0.5 [facility] Nucleated RBC Auto Ql (Bld) Nucleated erythrocytes [Presence] in Blood by Automated count 0-0.5 [facility] Platelet mean volume Auto (B ld) [Entitic vol]Ordered By: Savannah Wen on 07-07-2024 Platelet mean volume (Bld) [Entitic vol] Platelet mean volume [Entitic volume] in Blood by Automated count 6.3-10.7 [facility] Platelet mean volume [Entiti c volume] in Blood by Automated countOrdered By: Savannah Wen on 07-07-2024 Platelet mean volume (Bld) [Entitic vol] 7.5 fL Normal 6.3-10.7 [facility] Comment on above: Order Comment: REDRA W Performed By: #### C K, PTT, CBC, PT, MG, CMP, HS TROP, BNP #### [facility] [address] [place] [address] Platelets Auto (Bld) [#/Vol] Ordered By: Savannah Wen on 07-07-2024 Platelets (Bld) [#/Vol] Platelets [#/volume] in Blood by Automated count 150-450 [facility] Platelets [#/volume] in Bloo d by Automated countOrdered By: Savannah Wen on 07-07-2024 Platelets (Bld) [#/Vol] 198 10*3/uL Normal 150-450 [facility] Comment on above: Order Comment: REDRA W Performed By: #### C K, PTT, CBC, PT, MG, CMP, HS TROP, BNP #### [address] Potassium [Moles/volume] in Serum or PlasmaOrdered By: Pedro Quintero on 07-07-2024 Potassium [Moles/Vol] 3.9 mmol/L Normal 3.5-5.1 [facility] Comment on above: Order Comment: SPECI MEN HEMOLYZED. NOTIFIED EVELIN Result Comment: PERF ORMED BY: [place] [address] PATHOLOGIST FLOORMAN KRISTINA ENNIS M.D. Performed By: #### C K, PTT, CBC, PT, MG, CMP, HS TROP, BNP #### [address] Potassium [Moles/Vol] Potassium [Moles/v olume] in Serum or Plasma 3.5-5.1 [facility] Protein Test strip (U) [Mass /Vol]Ordered By: Jose Guthrie on 07-07-2024 Protein (U) [Mass/Vol] Negative Negative [facility] Protein (U) [Mass/Vol] Protein [Mass/volume] in Urine by Test strip Negative [facility] RBC Auto (Bld) [#/Vol]Ordere d By: Savannah Wen on 07-07-2024 RBC (Bld) [#/Vol] Erythrocytes [#/volu me] in Blood by Automated count 3.60-5.00 [facility] Serum or plasma anion gap de terminationOrdered By: Savannah Wen on 07-07-2024 Anion gap [Moles/Vol] TNP [facility] Comment on above: Test not performed Anion gap [Moles/Vol] Serum or plasma an ion gap determination [facility] Comment on above: Test not performed Sodium [Moles/volume] in Ser um or PlasmaOrdered By: Savannah Wen on 07-07-2024 Sodium [Moles/Vol] 137 mmol/L Normal 136-145 [facility] Comment on above: Order Comment: pt wood ving ultrasound Performed By: #### B MP #### [facility] [address] Sodium [Moles/Vol] Sodium [Moles/volume ] in Serum or Plasma 136-145 [facility] Specific gravity Test strip (U) [Rel density]Ordered By: Jose Guthrie on 07-07-2024 Specific gravity (U) [Rel density] 1.020 1.001-1.03 0 [facility] Specific gravity (U) [Rel density] Specific gravity of Urine by Test strip 1.001-1.03 0 [facility] Urea nitrogen [Mass/volume] in Serum or PlasmaOrdered By: Savannah Wen on 07-07-2024 Urea nitrogen [Mass/Vol] 15 mg/dL Normal 04-29 [facility] Comment on above: Order Comment: pt wood ving ultrasound Performed By: #### B MP #### [facility] [address] [place] [address] [place] Urea nitrogen [Mass/Vol] Urea nitrogen [Mass/volume] in Serum or Plasma 04-29 [facility] Urinalysison 07-07-2024 Bilirubin,Urine Negative Normal Negative [facility] Comment on above: Order Comment: Name Collection Type:: Voided Performed By: #### U A #### [facility] [address] [place] [address] [place] Glucose Ql (U) Normal Normal Normal [facility] Comment on above: Order Comment: Name Collection Type:: Voided Performed By: #### U A #### [address] Nitrite,Urine Negative Normal Negative [facility] Comment on above: Order Comment: Name Collection Type:: Voided Performed By: #### U A #### [address] Occult Blood,Urine Negative Normal Negative [facility] Comment on above: Order Comment: Name Collection Type:: Voided Result Comment: PERF ORMED BY: [place] [address] PATHOLOGIST FLOORMAN KRISTINA ENNIS M.D. Performed By: #### U A #### [address] Protein,Urine Negative Normal Negative [facility] Comment on above: Order Comment: Name Collection Type:: Voided Performed By: #### U A #### [address] Specificy [place],Urine 1.020 Normal 1.001-1.03 0 [facility] Comment on above: Order Comment: Name Collection Type:: Voided Performed By: #### U A #### [address] Urobilinogen,Urine Normal Normal Normal [facility] Comment on above: Order Comment: Name Collection Type:: Voided Performed By: #### U A #### [address] Urine appearanceOrdered By: Jose Guthrie on 07-07-2024 Appearance (U) Clear Normal Clear [facility] Comment on above: Order Comment: Name Collection Type:: Voided Performed By: #### U A #### [address] Urobilinogen Test strip (U) [Mass/Vol]Ordered By: Jose Guthrie on 07-07-2024 Urobilinogen (U) [Mass/Vol] Normal mg/dL Normal [facility] Urobilinogen (U) [Mass/Vol] Urobilinogen [Mass/volume] in Urine by Test strip Normal [facility] WBC Auto (Bld) [#/Vol]Ordere d By: Savannah Wen on 07-07-2024 WBC (Bld) [#/Vol] Leukocytes [#/volume ] in Blood by Automated count 3.8-11.6 [facility] pH Test strip (U)Ordered By: Jose Guthrie on 07-07-2024 pH (U) pH of Urine by Test strip 5.0-9.0 [facility] pH of Urine by Test stripOrd ered By: Jose Guthrie on 07-07-2024 pH (U) 6.5 [pH] Normal 5.0-9.0 [facility] Comment on above: Order Comment: Name Collection Type:: Voided Performed By: #### U A #### [facility] [address] Activated partial thrombopla stin time (aPTT) in platelet poor plasma by coagulation aOrdered By: Jose Guthrie on 07-06-2024 aPTT Coag (PPP) [Time] 24.6 s Low 25.1-36.5 [facility] Comment on above: A hematocrit value g reater than 55% may lead to inaccurate results in coagulation testing. Patients having hematocrit values >55% require a special collection tube for coagulation studies. Please contact the laboratory at [phone] for redraw instructions. Alanine aminotransferase [En zymatic activity/volume] in Serum or PlasmaOrdered By: Jose Guthrie on 07-06-2024 ALT [Catalytic activity/Vol] 32 U/L Normal [facility] Comment on above: Performed By: #### C K, PTT, CBC, PT, MG, CMP, HS TROP, BNP #### [facility] [address] ALT [Catalytic activity/Vol] Alanine aminotransferase [Enzymatic activity/volume] in Serum or Plasma [facility] Albumin [Mass/volume] in Ser um or Plasma by Bromocresol green (BCG) dye binding methoOrdered By: Jose Guthrie on 07-06-2024 Albumin BCG dye [Mass/Vol] 4.3 g/dL 3.5-5.7 [facility] Albumin BCG dye [Mass/Vol] Albumin [Mass/volume] in Serum or Plasma by Bromocresol green (BCG) dye binding metho 3.5-5.7 [facility] Alkaline phosphatase [Enzyma tic activity/volume] in Serum or PlasmaOrdered By: Jose Guthrie on 07-06-2024 ALP [Catalytic activity/Vol] 58 U/L Normal 34 [facility] Comment on above: Performed By: #### C K, PTT, CBC, PT, MG, CMP, HS TROP, BNP #### [facility] [address] ALP [Catalytic activity/Vol] Alkaline phosphatase [Enzymatic activity/volume] in Serum or Plasma [facility] Aspartate aminotransferase [ Enzymatic activity/volume] in Serum or PlasmaOrdered By: Jose Guthrie on 07-06-2024 AST [Catalytic activity/Vol] 32 U/L Normal [facility] Comment on above: Performed By: #### C K, PTT, CBC, PT, MG, CMP, HS TROP, BNP #### [facility] [address] AST [Catalytic activity/Vol] Aspartate aminotransferase [Enzymatic activity/volume] in Serum or Plasma [facility] Automated basophil %Ordered By: Jose Guthrie on 07-06-2024 Basophils/100 WBC (Bld) 0.3 % Normal . [facility] Comment on above: Performed By: #### C K, PTT, CBC, PT, MG, CMP, HS TROP, BNP #### [facility] [address] Automated basophil countOrde red By: Jose Guthrie on 07-06-2024 Basophils (Bld) [#/Vol] 0.0 10*3/uL Normal 0.0-0.2 [facility] Comment on above: Result Comment: PERF ORMED BY: [place] [address] PATHOLOGIST FLOORMAN KRISTINA ENNIS M.D. Performed By: #### C K, PTT, CBC, PT, MG, CMP, HS TROP, BNP #### [address] Automated blood monocyte cou ntOrdered By: Jose Guthrie on 07-06-2024 Monocytes (Bld) [#/Vol] 1.3 10*3/uL High 0.0-0.8 [facility] Comment on above: Performed By: #### C K, PTT, CBC, PT, MG, CMP, HS TROP, BNP #### [address] Automated eosinophil %Ordere d By: Jose Guthrie on 07-06-2024 Eosinophils/100 WBC (Bld) 0.4 % Normal . [facility] Comment on above: Performed By: #### C K, PTT, CBC, PT, MG, CMP, HS TROP, BNP #### [address] Automated eosinophil countOr dered By: Jose Guthrie on 07-06-2024 Eosinophils (Bld) [#/Vol] 0.0 10*3/uL Normal 0.0-0.45 [facility] Comment on above: Performed By: #### C K, PTT, CBC, PT, MG, CMP, HS TROP, BNP #### [address] Automated monocyte %Ordered By: Jose Guthrie on 07-06-2024 Monocytes/100 WBC (Bld) 10.1 % Normal . [facility] Comment on above: Performed By: #### C K, PTT, CBC, PT, MG, CMP, HS TROP, BNP #### [address] Automated neutrophil %Ordere d By: Jose Guthrie on 07-06-2024 Neutrophils/100 WBC (Bld) 79.2 % Normal . [facility] Comment on above: Performed By: #### C K, PTT, CBC, PT, MG, CMP, HS TROP, BNP #### [place] [id number] [place] BNP ser/plasOrdered By: Cristela Guthrie on 07-06-2024 Natriuretic peptide B (Bld) [Mass/Vol] 111.0 pg/mL High 5-100 [facility] Comment on above: Result Comment: PERF ORMED BY: [place] [address] PATHOLOGIST FLOORMAN KRISTINA ENNIS M.D. Performed By: #### C K, PTT, CBC, PT, MG, CMP, HS TROP, BNP #### [facility] [address] Bilirubin.total [Mass/volume ] in Serum or PlasmaOrdered By: Jose Guthrie on 07-06-2024 Bilirubin [Mass/Vol] 0.7 mg/dL Normal 0.3-1.0 [facility] Comment on above: Performed By: #### C K, PTT, CBC, PT, MG, CMP, HS TROP, BNP #### [facility] [address] [place] [address] Bilirubin [Mass/Vol] Bilirubin.total [Mass/volume] in Serum or Plasma 0.3-1.[address] [facility] [address] head/brain wo conon 07-06 CT head/brain wo [facility] [place] [address] CT Scan Report Signed Patient: Thiago Sabillon MR#: [id number] 5 : 1950 Acct:[id number] Age/Sex: 73 / F ADM Date: 07/06/24 Loc: ER Room: Type: [facility] ER Attending Dr: Copies to: Jose [...] Aden Avilez M.D.07/06/2024 4:19 PM Dictation Location: [place] [address] Transcribed By: [facility] 07/06/241618 Dictated By: Aden Avilez DO 07/06/241616 Signed By: 07/06/24 1619 Normal [facility] Calcium [Mass/volume] in Ser um or PlasmaOrdered By: Jose Guthrie on 07-06-2024 Calcium [Mass/Vol] 8.8 mg/dL Normal 8.6-10.3 [facility] Comment on above: Performed By: #### C K, PTT, CBC, PT, MG, CMP, HS TROP, BNP #### [facility] [address] Carbon dioxide, total [Moles /volume] in Serum or PlasmaOrdered By: Jose Guthrie on 07-06-2024 CO2 [Moles/Vol] 25.6 mmol/L Normal 21.0-31.0 [facility] Comment on above: Performed By: #### C K, PTT, CBC, PT, MG, CMP, HS TROP, BNP #### [facility] [address] [place] [address] [place] Chloride [Moles/volume] in S moe or PlasmaOrdered By: Jose Guthrie on 07-06-2024 Chloride [Moles/Vol] 100 mmol/L Normal 98-107 [facility] Comment on above: Performed By: #### C K, PTT, CBC, PT, MG, CMP, HS TROP, BNP #### [facility] [address] Complete Blood Count Auto Di ffon 07-06-2024 Mean Corpuscular HGB Conc 33.3 g/dL Normal 32.0-35.0 [facility] Comment on above: Performed By: #### C K, PTT, CBC, PT, MG, CMP, HS TROP, BNP #### [address] Monocytes/100 WBC (Bld) 17.45 % Normal 0.00-20.00 [facility] Comment on above: Performed By: #### C K, PTT, CBC, PT, MG, CMP, HS TROP, BNP #### [address] NRBC% 0.0 /100{WBC} Normal 0-0.5 [facility] Comment on above: Performed By: #### C K, PTT, CBC, PT, MG, CMP, HS TROP, BNP #### [address] Comprehensive Metabolic Pane simeon 07-06-2024 Albumin [Mass/Vol] 4.3 g/dL Normal 3.5-5.7 [facility] Comment on above: Performed By: #### C K, PTT, CBC, PT, MG, CMP, HS TROP, BNP #### [address] Creatinine Clr Calc Pharmacy 51.31 Normal [facility] Comment on above: Performed By: #### C K, PTT, CBC, PT, MG, CMP, HS TROP, BNP #### [address] GFR/1.73 sq M.predicted MDRD (S/P/Bld) [Vol rate/Area] mL/min/{1.73_m2} Normal [facility] Comment on above: Performed By: #### C K, PTT, CBC, PT, MG, CMP, HS TROP, BNP #### [address] Creatine kinase [Enzymatic a ctivity/volume] in Serum or PlasmaOrdered By: Jose Guthrie on 07-06-2024 CK [Catalytic activity/Vol] 606 U/L High 30-223 [facility] Comment on above: Performed By: #### C K, PTT, CBC, PT, MG, CMP, HS TROP, BNP #### [place] [id number] [facility] CK [Catalytic activity/Vol] Creatine kinase [Enzymatic activity/volume] in Serum or Plasma [facility] [address] [facility] Creatinine [Mass/volume] in Serum or PlasmaOrdered By: Jose Guthrie on 07-06-2024 Creatinine [Mass/Vol] 0.60 mg/dL Normal 0.60-1.20 [facility] Comment on above: Performed By: #### C K, PTT, CBC, PT, MG, CMP, HS TROP, BNP #### [facility] [address] [place], [place] [id number] [facility] ECG 12 lead ECGon 07-06-2024 ECG 12 [place] [address] Electrocardiograph Report Signed Patient: Thiago Sabillon MR#: [id number] 5 : 1950 Acct:[id number] Age/Sex: 73 / F ADM Date: 07/06/24 Loc: Room: [address] [place] [address] Type: ADM IN Attending Dr: Pedro Quintero [...] sinus arrhythmia Confirmed by Alistair TEJADA DO ([id number]) on 07/07/2024 2:24:58 AM Referred By: Electronically Signed By: Alistair TEJADA DO Transcribed By: MUS Signed By Alistair Tejada DO 1 0225 Normal [facility] ECG 12 lead ECG [facility] [place] [address] Electrocardiograph Report Signed Patient: Thiago Sabillon MR#: [id number] 5 : 1950 Acct:[id number] Age/Sex: 73 / F ADM Date: 07/06/24 Loc: Room: [address] [place] [address] Type: ADM IN Attending Dr: Pedro Quintero [...] Sinus bradycardia Confirmed by Joshua Chen DO ([id number]) on 07/07/2024 2:08:11 AM Referred By: Electronically Signed By: Joshua Chen DO Transcribed By: MUS Signed By Joshua Chen DO 0208 Normal [facility] Erythrocyte distribution wid th [Ratio] by Automated countOrdered By: Jose Guthrie on 07-06-2024 Erythrocyte distribution width (RBC) [Ratio] 14.5 % Normal 11.9-15.3 [facility] Comment on above: Performed By: #### C K, PTT, CBC, PT, MG, CMP, HS TROP, BNP #### [facility] [address] Erythrocytes [#/volume] in B lood by Automated countOrdered By: Jose Guthrie on 07-06-2024 RBC (Bld) [#/Vol] 4.42 10*6/uL Normal 3.60-5.00 [facility] Comment on above: Performed By: #### C K, PTT, CBC, PT, MG, CMP, HS TROP, BNP #### [facility] [address] Globulin Calc (S) [Mass/Vol] Ordered By: Jose Guthrie on 07-06-2024 Globulin (S) [Mass/Vol] Serum globulin measurement by calculation (mass/volume) [facility] Glucose [Mass/volume] in Ser um or PlasmaOrdered By: Jose Guthrie on 07-06-2024 Glucose [Mass/Vol] 102 mg/dL High 70-100 [facility] Comment on above: ADA recommended refe rence rangeRandom Glucose Reference Range is dependent on time and content of last meal. Glucose of more than 200 mg/dL in a nonstressed, ambulatory subject supports the diagnosis of Diabetes Mellitus. Result Comment: [place] om Glucose Reference Range is dependent on time and content of last meal. Glucose of more than 200 mg/dL in a nonstressed, ambulatory subject supports the diagnosis of Diabetes Mellitus. ADA recommended reference range Performed By: #### C K, PTT, CBC, PT, MG, CMP, HS TROP, BNP #### [address] Hematocrit [Volume Fraction] of Blood by Automated countOrdered By: Jose Guthrie on 07-06-2024 Hematocrit (Bld) [Volume fraction] 42.3 % Normal 34.0-46.4 [facility] Comment on above: Performed By: #### C K, PTT, CBC, PT, MG, CMP, HS TROP, BNP #### [facility] [address] [place] [address] Hemoglobin [Mass/volume] in BloodOrdered By: Jose Guthrie on 07-06-2024 Hemoglobin (Bld) [Mass/Vol] 14.1 g/dL Normal 11.8-15.4 [facility] Comment on above: Performed By: #### C K, PTT, CBC, PT, MG, CMP, HS TROP, BNP #### [address] INR in Platelet poor plasma by Coagulation assayOrdered By: Jose Guthrie on 07-06-2024 INR Coag (PPP) [Relative time] 0.9 {INR} Normal [facility] Comment on above: INR Therapeutic Rang e [...] PT, MG, CMP, HS TROP, BNP #### [facility] [address] INR Coag (PPP) [Relative time] INR in Platelet poor plasma by Coagulation assay [facility] Comment on above: INR Therapeutic Rang e [...] Auto (Bld) [#/Vol] 12.8 10*3/uL High 3.8-11.6 [facility] Leukocytes [#/volume] in Blo od by Automated countOrdered By: Jose Guthrie on 07-06-2024 WBC (Bld) [#/Vol] 12.8 10*3/uL High 3.8-11.6 [facility] Comment on above: Performed By: #### C K, PTT, CBC, PT, MG, CMP, HS TROP, BNP #### [facility] [address] [place] [address] [place] Lymphocytes [#/volume] in Bl ood by Automated countOrdered By: Jose Guthrie on 07-06-2024 Lymphocytes (Bld) [#/Vol] 1.3 10*3/uL Normal 1.00-4.8 [facility] Comment on above: Performed By: #### C K, PTT, CBC, PT, MG, CMP, HS TROP, BNP #### [address] Lymphocytes/100 leukocytes i n Blood by Automated countOrdered By: Jose Guthrie on 07-06-2024 Lymphocytes/100 WBC (Bld) 10.0 % Normal . [facility] Comment on above: Performed By: #### C K, PTT, CBC, PT, MG, CMP, HS TROP, BNP #### [address] MCH [Entitic mass] by Automa maryjane countOrdered By: Jose Guthrie on 07-06-2024 MCH (RBC) [Entitic mass] 31.8 pg Normal 24.7-34.3 [facility] Comment on above: Performed By: #### C K, PTT, CBC, PT, MG, CMP, HS TROP, BNP #### [address] MCHC Auto (RBC) [Mass/Vol]Or dered By: Jose Guthrie on 07-06-2024 MCHC (RBC) [Mass/Vol] 33.3 g/dL 32.0-35.0 [facility] MCV [Entitic volume] by Auto mated countOrdered By: Jose Guthrie on 07-06-2024 MCV (RBC) [Entitic vol] 95.6 fL Normal 80-100 [facility] Comment on above: Performed By: #### C K, PTT, CBC, PT, MG, CMP, HS TROP, BNP #### [address] Magnesium [Mass/volume] in S moe or PlasmaOrdered By: Jose Guthrie on 07-06-2024 Magnesium [Mass/Vol] 1.9 mg/dL Normal 1.9-2.7 [facility] Comment on above: Result Comment: PERF ORMED BY: [place] [address] PATHOLOGIST FLOORMAN KRISTINA ENNIS M.D. Performed By: #### C K, PTT, CBC, PT, MG, CMP, HS TROP, BNP #### [facility] [address] [place] [id number] [place] Magnesium [Mass/Vol] Magnesium [Mass/vol ume] in Serum or Plasma 1.9-2.7 [facility] Monocyte distribution width [Entitic volume] in Blood by AutomatedOrdered By: Jose Guthrie on 07-06-2024 Monocyte distribution width Auto (Bld) [Entitic vol] 17.45 % 0.00-20.00 [facility] Monocyte distribution width Auto (Bld) [Entitic vol] Monocyte distribution width [Entitic volume] in Blood by Automated 0.00-20.00 [facility] Natriuretic peptide B [Mass/ Vol]Ordered By: Jose Guthrie on 07-06-2024 Natriuretic peptide B (Bld) [Mass/Vol] BNP ser/plas High 5-100 [facility] Neutrophils [#/volume] in Bl ood by Automated countOrdered By: Jose Guthrie on 07-06-2024 Neutrophils (Bld) [#/Vol] 10.2 10*3/uL High 1.8-7.7 [facility] Comment on above: Performed By: #### C K, PTT, CBC, PT, MG, CMP, HS TROP, BNP #### [facility] [address] No Panel InformationOrdered By: Jose Guthrie on 07-06-2024 Estimated GFR (CKD-EPI) > 60.0 mL/Min [facility] Creatinine Clearance (Chem 51.31 [facility] Nucleated erythrocytes [Pres ence] in Blood by Automated countOrdered By: Jose Guthrie on 07-06-2024 Nucleated RBC Auto Ql (Bld) 0.0 /100{WBC} 0-0.5 [facility] Partial Thromboplastin Timeo n 07-06-2024 aPTT Coag (Bld) [Time] 24.6 s Low 25.1-36.5 [facility] Comment on above: Result Comment: A he matocrit value greater than 55% may lead to inaccurate results in coagulation testing. Patients having hematocrit values >55% require a special collection tube for coagulation studies. Please contact the laboratory at [phone] for redraw instructions. PERFORMED BY: [place] [address] PATHOLOGIST FLOORMAN KRISTINA ENNIS M.D. Performed By: #### C K, PTT, CBC, PT, MG, CMP, HS TROP, BNP #### [address] Platelet mean volume [Entiti c volume] in Blood by Automated countOrdered By: Jose Guthrie on 07-06-2024 Platelet mean volume (Bld) [Entitic vol] 7.6 fL Normal 6.3-10.7 [facility] Comment on above: Performed By: #### C K, PTT, CBC, PT, MG, CMP, HS TROP, BNP #### [place] [address] [place] Platelets [#/volume] in Bloo d by Automated countOrdered By: Jose Guthrie on 07-06-2024 Platelets (Bld) [#/Vol] 243 10*3/uL Normal 150-450 [facility] Comment on above: Performed By: #### C K, PTT, CBC, PT, MG, CMP, HS TROP, BNP #### [place] [address] [place] Potassium [Moles/volume] in Serum or PlasmaOrdered By: Jose Guthrie on 07-06-2024 Potassium [Moles/Vol] 4.0 mmol/L Normal 3.5-5.1 [facility] Comment on above: Performed By: #### C K, PTT, CBC, PT, MG, CMP, HS TROP, BNP #### [place] [address] [place] Protein [Mass/volume] in Ser um or PlasmaOrdered By: Jose Guthrie on 07-06-2024 Protein [Mass/Vol] 6.8 g/dL Normal 6.4-8.9 [facility] Comment on above: Performed By: #### C K, PTT, CBC, PT, MG, CMP, HS TROP, BNP #### [place] [address] [place] Protein [Mass/Vol] Protein [Mass/volume ] in Serum or Plasma 6.4-8.9 [facility] Prothrombin time (PT)Ordered By: Jose Guthrie on 07-06-2024 PT Coag (PPP) [Time] 11.0 s Normal 9.0-12.9 [facility] Comment on above: A hematocrit value g reater than 55% may lead to inaccurate results in coagulation testing. Patients having hematocrit values >55% require a special collection tube for coagulation studies. Please contact the laboratory at [phone] for redraw instructions. Result Comment: A he matocrit value greater than 55% may lead to inaccurate results in coagulation testing. Patients having hematocrit values >55% require a special collection tube for coagulation studies. Please contact the laboratory at [phone] for redraw instructions. Performed By: #### C K, PTT, CBC, PT, MG, CMP, HS TROP, BNP #### [facility] [address] [place] [address] PT Coag (PPP) [Time] Prothrombin time (PT) 9.0- 12.9 [facility] Comment on above: A hematocrit value g reater than 55% may lead to inaccurate results in coagulation testing. Patients having hematocrit values >55% require a special collection tube for coagulation studies. Please contact the laboratory at [phone] for redraw instructions. Serum globulin measurement b y calculation (mass/volume)Ordered By: Jose Guthrie on 07-06-2024 Globulin (S) [Mass/Vol] 2.5 g/dL Normal [facility] Comment on above: Performed By: #### C K, PTT, CBC, PT, MG, CMP, HS TROP, BNP #### [facility] [address] Serum or plasma albumin/glob ulin mass ratioOrdered By: Jose Guthrie on 07-06-2024 Albumin/Globulin [Mass ratio] 1.7 {ratio} [facility] Comment on above: Performed By: #### C K, PTT, CBC, PT, MG, CMP, HS TROP, BNP #### [facility] [address] [place] [address] Albumin/Globulin [Mass ratio] Serum or plasma albumin/globulin mass ratio [facility] Serum or plasma anion gap de terminationOrdered By: Jose Guthrie on 07-06-2024 Anion gap [Moles/Vol] 11.4 mmol/L Normal 6.0-15.[address] [facility] Comment on above: Performed By: #### C K, PTT, CBC, PT, MG, CMP, HS TROP, BNP #### [facility] [address] Sodium [Moles/volume] in Ser um or PlasmaOrdered By: Jose Guthrie on 07-06-2024 Sodium [Moles/Vol] 133 mmol/L Low 136-145 [facility] Comment on above: Performed By: #### C K, PTT, CBC, PT, MG, CMP, HS TROP, BNP #### [facility] [address] Troponin I High Sensitivityo n 07-06-2024 Troponin I High Sensitivity 5.1 pg/mL Normal 0.0-15.0 [facility] Comment on above: Result Comment: PERF ORMED BY: [place] [address] PATHOLOGIST FLOORMAN KRISTINA ENNIS M.D. Performed By: #### C K, PTT, CBC, PT, MG, CMP, HS TROP, BNP #### [facility] [address] Troponin I.cardiac [Mass/vol ume] in Serum or Plasma by Detection limit <= 0.01 ng/Ordered By: Jose Guthrie on 07-06-2024 Troponin I.cardiac DL <= 0.01 ng/mL [Mass/Vol] 5.1 pg/mL 0.0-15.0 [facility] Troponin I.cardiac DL <= 0.01 ng/mL [Mass/Vol] Troponin I.cardiac [Mass/volume] in Serum or Plasma by Detection limit <= 0.01 ng/ 0.0-15.0 [facility] Urea nitrogen [Mass/volume] in Serum or PlasmaOrdered By: Jose Guthrie on 07-06-2024 Urea nitrogen [Mass/Vol] 28 mg/dL High 7-25 [facility] Comment on above: Performed By: #### C K, PTT, CBC, PT, MG, CMP, HS TROP, BNP #### [facility] [address] XR chest 1V portableon 07-06 XR chest 1V portable [facility] [address] [place] [address] [place] [address] XRay Report Signed Patient: Thiago Sabillon MR#: [id number] 5 : 1950 Acct:[id number] Age/Sex: 73 / F ADM Date: 07/06/24 Loc: ER Room: Type: [facility] ER Attending Dr: Copies to: Jose [...] Aden Avilez M.D.07/06/2024 4:21 PM Dictation Location: [place] [address] Transcribed By: [facility] 07/06/24 162 Dictated By: Aden Avilez DO 07/06/24 162 Signed By: 07/06/24 1621 Normal [facility] aPTT in Platelet poor plasma by Coagulation assayOrdered By: Jose Guthrie on 07-06-2024 aPTT Coag (PPP) [Time] Activated partial thromboplastin time (aPTT) in platelet poor plasma by coagulation a Low 25.1-36.5 [facility] Comment on above: A hematocrit value g reater than 55% may lead to inaccurate results in coagulation testing. Patients having hematocrit values >55% require a special collection tube for coagulation studies. Please contact the laboratory at [phone] for redraw instructions. ABO/Rh Retypeon 07-05-2024 ABO/RH Recheck Result Positive Normal [facility] Comment on above: Result Comment: PERF ORMED BY: [place] [address] PATHOLOGIST FLOORMAN KRISTINA ENNIS M.D. Albumin Levelon 07-05-2024 Albumin [Mass/Vol] 3.9 g/dL Normal 3.5-5.7 [facility] Comment on above: Result Comment: PERF ORMED BY: [place] [address] PATHOLOGIST FLOORMAN KRISTINA ENNIS M.D. Performed By: #### U A #### [address] Albumin [Mass/volume] in Ser um or Plasma by Bromocresol green (BCG) dye binding methoOrdered By: Vernell Alvarez on 07-05-2024 Albumin BCG dye [Mass/Vol] 3.9 g/dL 3.5-5.7 [facility] Albumin BCG dye [Mass/Vol] Albumin [Mass/volume] in Serum or Plasma by Bromocresol green (BCG) dye binding metho 3.5-5.7 [facility] Simeon 07-05-2024 L Specimen: [id number] Received: 07/06/24 Status: DREWJames Hernandez Num: [id number] Spec Type: Surgical Subm Dr: Vernell Alvarez MD Tissues: A Femoral Head - Other than Fracture (L HIP) Procedures: HE/2, Gross/Micro L3, Decalcification Age/ Patient Sex Location Account Attending Physician Thiago Sabillon 73/F [place] [id number] Vernell Alvarez MD SPEC NUM: [id number] RECD: 07/06/24 STATUS: SERGE JUAREZ NUM: [id number] DENTON: 07/05/24- SUBM DR: Vernell Alvarez MD ENTERED: 07/06/[address] [facility] [address]: SPEC TYPE: Surgical DEPT: S ENTERED BY: [id number] RECV BY: [id number] ORDERED: HE/2, Gross/Micro L3, Decalcification ORDERED: , Gross/Micro L3, Decalcification Pathological Diagnosis Left hip [...] greatest dimension. Extreme osteophytic lipping is identified. 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 sections are submitted as follows: A1 eburnation and soft tissue, (submitted in decal before routine processing) A2 osteophytic lipping, (submitted in decal before routine processing) DM Specimen: [id number] Received: 07/06/24 Status: SERGE Juarezkathya Num: [id number] Spec Type: Surgical Subm Dr: Vernell Alvarez MD Tissues: A Femoral Head - Other than Fracture (L HIP) Procedures: , Gross/Micro L3, Decalcification Patient: Thiago Sabillon [id number] (Continued) Specimen: [id number] Received: 07/06/24 (Continued) Signed (signature on file) Ascencion Scott MD 07/13/24 1313 Specimen: [id number] Received: 07/06/24 Status: SERGE Hernandez Num: [id number] Spec Type: Surgical Subm Dr: Vernell Alvarez MD Tissues: A Femoral Head - Other than Fracture (L HIP) Procedures: HE/2, Gross/Micro L3, Decalcification Patient: Thiago Sabillon [id number] (Continued) Specimen: [id number] Received: 07/06/24 (Continued) Microscopic Description Microscopic examinations are performed supporting the above interpretation CPT Codes 06697 [id number] Specimen: [id number] Received: 07/06/24 Status: SERGE Hernandez Num: [id number] Spec Type: Surgical Subm Dr: Vernell Alvarez MD Tissues: A Femoral Head - Other than Fracture (L HIP) Procedures: HE/2, Gross/Micro L3, Decalcification Patient: Thiago Sabillon [id number] (Continued) Signed (signature on file) Ascencion Scott MD 07/13/24 1313 Normal [facility] XR hip LT min 2V(w/wo pelvis )*on 07-05-2024 XR hip LT min 2V(w/wo pelvis)* [facility] [address] [place] [address] [place] [address] XRay Report Signed Patient: Thiago Sabillon MR#: [id number] 5 : 1950 Acct:[id number] Age/Sex: 73 / F ADM Date: 07/05/24 Loc: [place] Room: Type[facility] [facility] Attending Dr: Vernell Alvarez II, [...] Aden Avilez M.D.07/05/2024 8:21 PM Dictation Location: [place] [address] Transcribed By: [facility] 07/05/242020 Dictated By: Aden Avilez DO 07/05/242018 Signed By: 07/05/242020 Normal [facility] XR Hip - right 3 [...] on 06-21-2024 Appearance (U) Urine appearance Clear [facility] Automated basophil %Ordered By: Vernell Alvarez on 06-21-2024 Basophils/100 WBC (Bld) 0.6 % Normal . [facility] Comment on above: Performed By: #### U A #### [address] Automated basophil countOrde red By: Vernell Alvarez on 06-21-2024 Basophils (Bld) [#/Vol] 0.0 10*3/uL Normal 0.0-0.2 [facility] Comment on above: Result Comment: PERF ORMED BY: [place] [address] PATHOLOGIST FLOORMAN KRISTINA ENNIS M.D. Performed By: #### U A #### [address] Automated blood monocyte cou ntOrdered By: Vernell Alvarez on 06-21-2024 Monocytes (Bld) [#/Vol] 0.7 10*3/uL Normal 0.0-0.8 [facility] Comment on above: Performed By: #### U A #### [address] Automated eosinophil %Ordere d By: Vernell Alvarez on 06-21-2024 Eosinophils/100 WBC (Bld) 1.8 % Normal . [facility] Comment on above: Performed By: #### U A #### [address] Automated eosinophil countOr dered By: Vernell Alvarez on 06-21-2024 Eosinophils (Bld) [#/Vol] 0.1 10*3/uL Normal 0.0-0.45 [facility] Comment on above: Performed By: #### U A #### [address] Automated monocyte %Ordered By: Vernell Alvarez on 06-21-2024 Monocytes/100 WBC (Bld) 12.3 % Normal . [facility] Comment on above: Performed By: #### U A #### [place] [address] [place] Automated neutrophil %Ordere d By: Vernell Alvarez on 06-21-2024 Neutrophils/100 WBC (Bld) 61.3 % Normal . [facility] Comment on above: Performed By: #### U A #### [address] Basic Metabolic Panelon 06-06 GFR/1.73 sq M.predicted MDRD (S/P/Bld) [Vol rate/Area] mL/min/{1.73_m2} Normal [facility] Comment on above: Performed By: #### U A #### [address] Basophils Auto (Bld) [#/Vol] Ordered By: Vernell Alvarez on 06-21-2024 Basophils (Bld) [#/Vol] Automated basophil count 0.0-0.2 [facility] Basophils/100 WBC Auto (Bld) Ordered By: Vernell Alvarez on 06-21-2024 Basophils/100 WBC (Bld) Automated basophil % . [facility] Bilirubin Test strip Ql (U)O rdered By: Vernell Alvarez on 06-21-2024 Bilirubin Ql (U) Negative Negative [facility] Bilirubin Ql (U) Bilirubin.total [Pre sence] in Urine by Test strip Negative [facility] Calcium [Mass/volume] in Ser um or PlasmaOrdered By: Vernell Alvarez on 06-21-2024 Calcium [Mass/Vol] 9.0 mg/dL Normal 8.6-10.3 [facility] Comment on above: Result Comment: PERF ORMED BY: [address] [place] [address] PATHOLOGIST FLOORMAN KRISTINA ENNIS M.D. Performed By: #### U A #### [address] Calcium [Mass/Vol] Calcium [Mass/volume ] in Serum or Plasma 8.6-10.3 [facility] Carbon dioxide, total [Moles /volume] in Serum or PlasmaOrdered By: Vernell Alvarez on 06-21-2024 CO2 [Moles/Vol] 31.0 mmol/L Normal 21.0-31.0 [facility] Comment on above: Performed By: #### U A #### [address] CO2 [Moles/Vol] Carbon dioxide, tota l [Moles/volume] in Serum or Plasma 21.0-31.0 [facility] Chloride [Moles/volume] in S moe or PlasmaOrdered By: Vernell Alvarez on 06-21-2024 Chloride [Moles/Vol] 106 mmol/L Normal 98-107 [facility] Comment on above: Performed By: #### U A #### [address] Chloride [Moles/Vol] Chloride [Moles/vol ume] in Serum or Plasma 98-107 [facility] Color Auto (U)Ordered By: Madelaine Alvarez on 06-21-2024 Color (U) Color of Urine by Auto Yellow [facility] Color of Urine by AutoOrdere d By: Vernell Alvarez on 06-21-2024 Color (U) Colorless Normal Yellow [facility] Comment on above: Order Comment: Name Collection Type:: Clean-Voided Midstream Performed By: #### C K, PTT, CBC, PT, MG, CMP, HS TROP, BNP #### [address] Complete Blood Count Auto Di ffon 06-21-2024 Mean Corpuscular HGB Conc 33.6 g/dL Normal 32.0-35.0 [facility] Comment on above: Performed By: #### U A #### [address] NRBC% 0.1 /100{WBC} Normal 0-0.5 [facility] Comment on above: Performed By: #### U A #### [address] Creatinine [Mass/volume] in Serum or PlasmaOrdered By: Vernell Alvarez on 06-21-2024 Creatinine [Mass/Vol] 0.64 mg/dL Normal 0.60-1.20 [facility] Comment on above: Performed By: #### U A #### [address] Creatinine [Mass/Vol] Creatinine [Mass/v olume] in Serum or Plasma 0.60-1.20 [facility] ECG 12 lead ECGon 06-21-2024 ECG 12 lead ECG [facility] Main [place] [address] [place] [address] Electrocardiograph Report Signed Patient: Thiago Sabillon MR#: [id number] 5 : 1950 Acct:[id number] Age/Sex: 73 / F ADM Date: 06/21/24 Loc: Room: Type: [facility] Attending Dr: Vernell Alvarez II, MD Ordering [...] previous ECGs available Confirmed by MATIAS ALEXANDER [facility], RITIKA ([id number]) on 06/21/2024 8:23:22 PM Referred By: Electronically Signed By: RITIKA SALCEDO MD [facility] Transcribed By: MUS Signed By Ritika Salcedo MD, [facility] 06/21/242022 Normal [facility] Eosinophils Auto (Bld) [#/Vo l]Ordered By: Vernell Alvarez on 06-21-2024 Eosinophils (Bld) [#/Vol] Automated eosinophil count 0.0-0.45 [facility] Eosinophils/100 WBC Auto (Bl d)Ordered By: Vernell Alvarez on 06-21-2024 Eosinophils/100 WBC (Bld) Automated eosinophil % . [facility] Erythrocyte distribution wid th Auto (RBC) [Ratio]Ordered By: Vernell Alvarez on 06-21-2024 Erythrocyte distribution width (RBC) [Ratio] Erythrocyte distribution width [Ratio] by Automated count 11.9-15.3 [facility] Erythrocyte distribution wid th [Ratio] by Automated countOrdered By: Vernell Alvarez on 06-21-2024 Erythrocyte distribution width (RBC) [Ratio] 14.5 % Normal 11.9-15.3 [facility] Comment on above: Performed By: #### U A #### [facility] [address] [place] [address] [place] Erythrocytes [#/volume] in B lood by Automated countOrdered By: Vernell Alvarez on 06-21-2024 RBC (Bld) [#/Vol] 4.11 10*6/uL Normal 3.60-5.00 [facility] Comment on above: Performed By: #### U A #### [place] [address] [place] Fructosamineon 06-21-2024 Fructosamine 219 umol/L Normal 0-285 [facility] Comment on above: Result Comment: Publ ished reference interval for apparently healthy subjects between age 20 and 60 is 205 - 285 umol/L and in a poorly controlled diabetic population is 228 - 563 umol/L with a mean of 396 umol/L. Performed at: [facility] [id number] [employer] Machine Mechanic: Roque Alex PhD, Phone: [phone] PERFORMED BY: [place] [address] PATHOLOGIST FLOORMAN KRISTINA ENNIS M.D. Performed By: #### U A #### [address] Fructosamine [Moles/volume] in Serum or PlasmaOrdered By: Vernell Alvarez on 06-21-2024 Fructosamine [Moles/Vol] 219 umol/L 0-285 [facility] Comment on above: Published reference interval for apparently healthysubjects between age 20 and 60 is 205 - 285 umol/L and in apoorly controlled diabetic population is 228 - 563 umol/Lwith a mean of 396 umol/L.Performed at: - [facility] [id number] [place], [place] [id number] Director: Roque Alex PhD, Phone: [phone] Fructosamine [Moles/Vol] Fructosamine [Moles/volume] in Serum or Plasma 0-285 [facility] Comment on above: Published reference interval for apparently healthysubjects between age 20 and 60 is 205 - 285 umol/L and in apoorly controlled diabetic population is 228 - 563 umol/Lwith a mean of 396 umol/L.Performed at: [facility] [id number] [place], [place] [id number] Director: Roque Alex PhD, Phone: [phone] Glucose [Mass/volume] in Ser um or PlasmaOrdered By: Vernell Alvarez on 06-21-2024 Glucose [Mass/Vol] 81 mg/dL Normal 70-100 [facility] Comment on above: ADA recommended refe rence rangeRandom Glucose Reference Range is dependent on time and content of last meal. Glucose of more than 200 mg/dL in a nonstressed, ambulatory subject supports the diagnosis of Diabetes Mellitus. Result Comment: [place] om Glucose Reference Range is dependent on time and content of last meal. Glucose of more than 200 mg/dL in a nonstressed, ambulatory subject supports the diagnosis of Diabetes Mellitus. ADA recommended reference range Performed By: #### U A #### [address] Glucose [Mass/Vol] Glucose [Mass/volume ] in Serum or Plasma 70-100 [facility] Comment on above: ADA recommended refe rence rangeRandom Glucose Reference Range is dependent on time and content of last meal. Glucose of more than 200 mg/dL in a nonstressed, ambulatory subject supports the diagnosis of Diabetes Mellitus. Glucose [Mass/volume] in Uri ne by Test stripOrdered By: Vernell Alvarez on 06-21-2024 Glucose Test strip (U) [Mass/Vol] Normal mg/dL [facility] Glucose Test strip (U) [Mass/Vol] Glucose [Mass/volume] in Urine by Test strip [facility] Hematocrit Auto (Bld) [Volum e fraction]Ordered By: Vernell Alvarez on 06-21-2024 Hematocrit (Bld) [Volume fraction] Hematocrit [Volume Fraction] of Blood by Automated count 34.0-46.4 [facility] Hematocrit [Volume Fraction] of Blood by Automated countOrdered By: Vernell Alvarez on 06-21-2024 Hematocrit (Bld) [Volume fraction] 38.8 % Normal 34.0-46.4 [facility] Comment on above: Performed By: #### U A #### [facility] [address] Hemoglobin Test strip Ql (U) Ordered By: Vernell Alvarez on 06-21-2024 Hemoglobin Ql (U) Negative Negative [facility] Hemoglobin Ql (U) Hemoglobin [Presence ] in Urine by Test strip Negative [facility] Hemoglobin [Mass/volume] in BloodOrdered By: Vernell Alvarez on 06-21-2024 Hemoglobin (Bld) [Mass/Vol] 13.0 g/dL Normal 11.8-15.4 [facility] Comment on above: Performed By: #### U A #### [facility] [address] [place] [address] Hemoglobin (Bld) [Mass/Vol] Hemoglobin [Mass/volume] in Blood 11.8-15.4 [facility] Ketones Test strip Ql (U)Ord ered By: Vernell Alvarez on 06-21-2024 Ketones Ql (U) Ketones [Presence] i n Urine by Test strip Negative [facility] Ketones [Presence] in Urine by Test stripOrdered By: Vernell Alvarez on 06-21-2024 Ketones Ql (U) Negative Normal Negative [facility] Comment on above: Order Comment: Name Collection Type:: Clean-Voided Midstream Performed By: #### C K, PTT, CBC, PT, MG, CMP, HS TROP, BNP #### [facility] [address] [place] [address] Leukocyte esterase [Presence ] in Urine by Test stripOrdered By: Vernell Alvarez on 06-21-2024 Leukocyte esterase Test strip Ql (U) Negative Normal Negative [facility] Comment on above: Order Comment: Name Collection Type:: Clean-Voided Midstream Performed By: #### C K, PTT, CBC, PT, MG, CMP, HS TROP, BNP #### [facility] [address] Leukocyte esterase Test strip Ql (U) Leukocyte esterase [Presence] in Urine by Test strip Negative [facility] Leukocytes [#/volume] correc maryjane for nucleated erythrocytes in Blood by Automated counOrdered By: Vernell Alvarez on 06-21-2024 WBC corrected for nucl RBC Auto (Bld) [#/Vol] 5.8 10*3/uL 3.8-11.6 [facility] WBC corrected for nucl RBC Auto (Bld) [#/Vol] Leukocytes [#/volume] corrected for nucleated erythrocytes in Blood by Automated coun 3.8-11.6 [facility] Leukocytes [#/volume] in Blo od by Automated countOrdered By: Vernell Alvarez on 06-21-2024 WBC (Bld) [#/Vol] 5.8 10*3/uL Normal 3.8-11.6 [facility] Comment on above: Performed By: #### U A #### [facility] [address] [place] [address] Lymphocytes Auto (Bld) [#/Vo l]Ordered By: Vernell Alvarez on 06-21-2024 Lymphocytes (Bld) [#/Vol] Lymphocytes [#/volume] in Blood by Automated count 1.00-4.8 [facility] Lymphocytes [#/volume] in Bl ood by Automated countOrdered By: Vernell Alvarez on 06-21-2024 Lymphocytes (Bld) [#/Vol] 1.4 10*3/uL Normal 1.00-4.8 [facility] Comment on above: Performed By: #### U A #### [facility] [address] [place] [address] Lymphocytes/100 WBC Auto (Bl d)Ordered By: Vernell Alvarez on 06-21-2024 Lymphocytes/100 WBC (Bld) Lymphocytes/100 leukocytes in Blood by Automated count . [facility] Lymphocytes/100 leukocytes i n Blood by Automated countOrdered By: Vernell Alvarez on 06-21-2024 Lymphocytes/100 WBC (Bld) 24.0 % Normal . [facility] Comment on above: Performed By: #### U A #### [facility] [address] [place] [address] MCH Auto (RBC) [Entitic mass ]Ordered By: Vernell Alvarez on 06-21-2024 MCH (RBC) [Entitic mass] MCH [Entitic mass] by Automated count 24.7-34.3 [facility] MCH [Entitic mass] by Automa maryjane countOrdered By: Vernell Alvarez on 06-21-2024 MCH (RBC) [Entitic mass] 31.7 pg Normal 24.7-34.3 [facility] Comment on above: Performed By: #### U A #### [address] MCHC Auto (RBC) [Mass/Vol]Or dered By: Vernell Alvarez on 06-21-2024 MCHC (RBC) [Mass/Vol] 33.6 g/dL 32.0-35.0 [facility] MCHC (RBC) [Mass/Vol] MCHC [Mass/volume] by Automated count 32.0-35.0 [facility] MCV Auto (RBC) [Entitic vol] Ordered By: Vernell Alvarez on 06-21-2024 MCV (RBC) [Entitic vol] MCV [Entitic volume] by Automated count 80-100 [facility] MCV [Entitic volume] by Auto mated countOrdered By: Vernell Alvarez on 06-21-2024 MCV (RBC) [Entitic vol] 94.5 fL Normal 80-100 [facility] Comment on above: Performed By: #### U A #### [facility] [address] [place] [address] Monocytes Auto (Bld) [#/Vol] Ordered By: Vernell Alvarez on 06-21-2024 Monocytes (Bld) [#/Vol] Automated blood monocyte count 0.0-0.8 [facility] Monocytes/100 WBC Auto (Bld) Ordered By: Vernell Alvarez on 06-21-2024 Monocytes/100 WBC (Bld) Automated monocyte % . [facility] Neutrophils Auto (Bld) [#/Vo l]Ordered By: Vernell Alvarez on 06-21-2024 Neutrophils (Bld) [#/Vol] Neutrophils [#/volume] in Blood by Automated count 1.8-7.7 [facility] Neutrophils [#/volume] in Bl ood by Automated countOrdered By: Vernell Alvarez on 06-21-2024 Neutrophils (Bld) [#/Vol] 3.6 10*3/uL Normal 1.8-7.7 [facility] Comment on above: Performed By: #### U A #### [address] Neutrophils/100 WBC Auto (Bl d)Ordered By: Vernell Alvarez on 06-21-2024 Neutrophils/100 WBC (Bld) Automated neutrophil % . [facility] Nitrite Test strip Ql (U)Ord ered By: Vernell Alvarez on 06-21-2024 Nitrite Ql (U) Negative Negative [facility] Nitrite Ql (U) Nitrite [Presence] i n Urine by Test strip Negative [facility] No Panel InformationOrdered By: Vernell Alvarez on 06-21-2024 Estimated GFR (CKD-EPI) > 60.0 mL/Min [facility] Creatinine Clearance (Chem N/A [facility] Nucleated erythrocytes [Pres ence] in Blood by Automated countOrdered By: Vernell Alvarez on 06-21-2024 Nucleated RBC Auto Ql (Bld) 0.1 /100{WBC} 0-0.5 [facility] Nucleated RBC Auto Ql (Bld) Nucleated erythrocytes [Presence] in Blood by Automated count 0-0.5 [facility] PST Type and Screenon 2023 ABO and Rh group Nom (Bld) Blood group A Rh(D) positive Normal [facility] Comment on above: Order Comment: Name Collection Type:: Voided Order Comment: Date of Surgery: [id number] Result Comment: PERF ORMED BY: [facility] [address] [place] [address] PATHOLOGIST FLOORMAN KRISTINA ENNIS M.D. Platelet mean volume Auto (B ld) [Entitic vol]Ordered By: Vernell Alvarez on 06-21-2024 Platelet mean volume (Bld) [Entitic vol] Platelet mean volume [Entitic volume] in Blood by Automated count 6.3-10.7 [facility] Platelet mean volume [Entiti c volume] in Blood by Automated countOrdered By: Vernell Alvarez on 06-21-2024 Platelet mean volume (Bld) [Entitic vol] 7.6 fL Normal 6.3-10.7 [facility] Comment on above: Performed By: #### U A #### [facility] [address] Platelets Auto (Bld) [#/Vol] Ordered By: Vernell Alvarez on 06-21-2024 Platelets (Bld) [#/Vol] Platelets [#/volume] in Blood by Automated count 150-450 [facility] Platelets [#/volume] in Bloo d by Automated countOrdered By: Vernell Alvarez on 06-21-2024 Platelets (Bld) [#/Vol] 228 10*3/uL Normal 150-450 [facility] Comment on above: Performed By: #### U A #### [facility] [address] [place] [address] Potassium [Moles/volume] in Serum or PlasmaOrdered By: Vernell Alvarez on 06-21-2024 Potassium [Moles/Vol] 4.6 mmol/L Normal 3.5-5.1 [facility] Comment on above: Performed By: #### U A #### [facility] [address] [place] [address] Potassium [Moles/Vol] Potassium [Moles/v olume] in Serum or Plasma 3.5-5.1 [facility] Protein Test strip (U) [Mass /Vol]Ordered By: Vernell Alvarez on 06-21-2024 Protein (U) [Mass/Vol] Negative Negative [facility] Protein (U) [Mass/Vol] Protein [Mass/volume] in Urine by Test strip Negative [facility] RBC Auto (Bld) [#/Vol]Ordere d By: Vernell Alvarez on 06-21-2024 RBC (Bld) [#/Vol] Erythrocytes [#/volu me] in Blood by Automated count 3.60-5.00 [facility] Serum or plasma anion gap de terminationOrdered By: Vernell Alvarez on 06-21-2024 Anion gap [Moles/Vol] 8.6 mmol/L Normal 6.0-15.0 [facility] Comment on above: Performed By: #### U A #### [facility] [address] Anion gap [Moles/Vol] Serum or plasma an ion gap determination 6.0-15.0 [facility] Sodium [Moles/volume] in Ser um or PlasmaOrdered By: Vernell Alvarez on 06-21-2024 Sodium [Moles/Vol] 141 mmol/L Normal 136-145 [facility] Comment on above: Performed By: #### U A #### [address] Sodium [Moles/Vol] Sodium [Moles/volume ] in Serum or Plasma 136-145 [facility] Specific gravity Test strip (U) [Rel density]Ordered By: Vernell Alvarez on 06-21-2024 Specific gravity (U) [Rel density] 1.015 1.001-1.03 0 [facility] Specific gravity (U) [Rel density] Specific gravity of Urine by Test strip 1.001-1.03 0 [facility] Urea nitrogen [Mass/volume] in Serum or PlasmaOrdered By: Vernell Alvarez on 06-21-2024 Urea nitrogen [Mass/Vol] 32 mg/dL [facility] 04-29 [facility] Comment on above: Performed By: #### U A #### [facility] [address] [place] [address] [place] Urea nitrogen [Mass/Vol] Urea nitrogen [Mass/volume] in Serum or Plasma [facility] 04-29 [facility] Urinalysison 06-21-2024 Bilirubin,Urine Negative Normal Negative [facility] Comment on above: Order Comment: Name Collection Type:: Clean-Voided Midstream Performed By: #### C K, PTT, CBC, PT, MG, CMP, HS TROP, BNP #### [address] Glucose Ql (U) Normal Normal Normal [facility] Comment on above: Order Comment: Name Collection Type:: Clean-Voided Midstream Performed By: #### C K, PTT, CBC, PT, MG, CMP, HS TROP, BNP #### [address] Nitrite,Urine Negative Normal Negative [facility] Comment on above: Order Comment: Name Collection Type:: Clean-Voided Midstream Performed By: #### C K, PTT, CBC, PT, MG, CMP, HS TROP, BNP #### [address] Occult Blood,Urine Negative Normal Negative [facility] Comment on above: Order Comment: Name Collection Type:: Clean-Voided Midstream Result Comment: PERF ORMED BY: [place] [address] PATHOLOGIST FLOORMAN KRISTINA ENNIS M.D. Performed By: #### C K, PTT, CBC, PT, MG, CMP, HS TROP, BNP #### [address] Protein,Urine Negative Normal Negative [facility] Comment on above: Order Comment: Name Collection Type:: Clean-Voided Midstream Performed By: #### C K, PTT, CBC, PT, MG, CMP, HS TROP, BNP #### [address] Specificy [place],Urine 1.015 Normal 1.001-1.03 0 [facility] Comment on above: Order Comment: Name Collection Type:: Clean-Voided Midstream Performed By: #### C K, PTT, CBC, PT, MG, CMP, HS TROP, BNP #### [address] Urobilinogen,Urine Normal Normal Normal [facility] Comment on above: Order Comment: Name Collection Type:: Clean-Voided Midstream Performed By: #### C K, PTT, CBC, PT, MG, CMP, HS TROP, BNP #### [facility] [address] Urine appearanceOrdered By: Vernell Alvarez on 06-21-2024 Appearance (U) Clear Normal Clear [facility] Comment on above: Order Comment: Name Collection Type:: Clean-Voided Midstream Performed By: #### C K, PTT, CBC, PT, MG, CMP, HS TROP, BNP #### [facility] [address] Urobilinogen Test strip (U) [Mass/Vol]Ordered By: Vernell Alvarez on 06-21-2024 Urobilinogen (U) [Mass/Vol] Normal mg/dL Normal [facility] Urobilinogen (U) [Mass/Vol] Urobilinogen [Mass/volume] in Urine by Test strip Normal [facility] WBC Auto (Bld) [#/Vol]Ordere d By: Vernell Alvarez on 06-21-2024 WBC (Bld) [#/Vol] Leukocytes [#/volume ] in Blood by Automated count 3.8-11.6 [facility] pH Test strip (U)Ordered By: Vernell Alvarez on 06-21-2024 pH (U) pH of Urine by Test strip 5.0-9.0 [facility] pH of Urine by Test stripOrd ered By: Vernell Alvarez on 06-21-2024 pH (U) 7.0 [pH] Normal 5.0-9.0 [facility] Comment on above: Order Comment: Name Collection Type:: Clean-Voided Midstream Performed By: #### C K, PTT, CBC, PT, MG, CMP, HS TROP, BNP #### [facility] [address] Glucose mean value [Mass/vol ume] in Blood Estimated from glycated hemoglobinon 04-16-2024 Average glucose Estimated from glycated hemoglobin (Bld) [Mass/Vol] 117 mg/dL [facility] Hemoglobin [Mass/volume] in Bloodon 04-16-2024 Hemoglobin (Bld) [Mass/Vol] 12.2 g/dL 12.0-16.0 [facility] Laboratory - Chemistry and C hemistry - challengeon 04-16-2024 Albumin [Mass/Vol] 3.1 g/dL Low 3.4-5.0 [facility] - Hematology and Cell countson 04-16-2024 HbA1c (Bld) [Mass fraction] 5.7 % 4.5-6.2 [facility] Comment on above: ADA RECOMMENDED LIMI T 4.0 - 6.0ADA THERAPEUTIC TARGET < 7.0ACTION SUGGESTED> 7.0 No Panel Informationon 04-16 Reference Lab Order Code See comment [facility] Comment on above: SEE SCANNED REPORT 25-Hydroxy Vitamin D Total 45.8 ng/mL [facility] Comment on above: <20 ng/mL Vit D defi cient20-<30 ng/mL Vit D ldrhtqqlzrif00-976 ng/mL Vit D sufficient>100 ng/mL Potential Toxicity Miscellaneous Test COMMENT . [facility] Comment on above: Test Ordered: [id number] Nicotine and Metabolite, QuantNicotine <1.0 ng/mL Reference Range: .This test was developed and its performance characteristicsdetermined by [employer]. It has not been cleared orapproved by the Food and Drug Administration.Nicotine levels greater than 2.0 are consistent with theuse of tobacco or tobacco cessation products.Cotinine <1.0 ng/mL Reference Range: .This test was developed and its performance characteristicsdetermined by [employer]. It has not been cleared orapproved by the Food and Drug Administration.Cotinine levels greater than 20.0 are consistent with theuse of tobacco or tobacco cessation products.Performed at: [facility] [id number] Director: Felicitas Tony MD, Phone: [phone] at: [address] [id number] Director: Roque Alex PhD, Phone: [phone] XR hip LT min 2V(w/wo pelvis )*on 01-16-2024 XR hip LT min 2V(w/wo pelvis)* [facility] [address] [place] [address] XRay Report Signed Patient: Thiago Sabillon MR#: [id number] : 1950 Acct:[id number] Age/Sex: 73 / F ADM Date: 01/16/24 Loc: SOX Room: Type: [facility] Attending Dr: Vernell Alvarez II, MD Copies [...] Anmol Foley M.D.01/16/2024 3:57 PM Dictation Location: [place] [address] Transcribed By: [facility] 01/16/24 1557 Dictated By: Anmol Foley II, MD 01/16/24 1556 Signed By: 01/16/24 1557 Normal [facility] Basophils Auto (Bld) [#/Vol] on 01-07-2024 Basophils (Bld) [#/Vol] 0.0 10 3/uL 0.0-0.1 [facility] Basophils/100 WBC Auto (Bld) on 01-07-2024 Basophils/100 WBC (Bld) 0.7 % 0.2-2.0 [facility] Eosinophils/100 WBC Auto (Bl d)on 01-07-2024 Eosinophils/100 WBC (Bld) 2.1 % 0.9-7.0 [facility] Erythrocyte distribution wid th Auto (RBC) [Ratio]on 01-07-2024 Erythrocyte distribution width (RBC) [Ratio] 14.1 % 11.0-15.0 [facility] Estimated glomerular filtrat ion rate (GFR) non- Americanon 01-07-2024 GFR/1.73 sq M.predicted among non-blacks MDRD (S/P/Bld) [Vol rate/Area] mL/min/{1.73_m2} >=60 [facility] Globulin Calc (S) [Mass/Vol] on 01-07-2024 Globulin (S) [Mass/Vol] 3.3 g/dL [facility] Hematocrit Auto (Bld) [Volum e fraction]on 01-07-2024 Hematocrit (Bld) [Volume fraction] 39.9 % 36.0-48.0 [facility] Hemoglobin [Mass/volume] in Bloodon 01-07-2024 Hemoglobin (Bld) [Mass/Vol] 12.6 g/dL 12.0-16.0 [facility] Laboratory - Chemistry and C hemistry - challengeon 01-07-2024 Albumin [Mass/Vol] 3.4 g/dL 3.4-5.0 [facility] ALP [Catalytic activity/Vol] 75 U/L 46-116 [facility] ALT [Catalytic activity/Vol] 41 U/L 14-59 [facility] AST [Catalytic activity/Vol] 22 U/L 15-37 [facility] Bilirubin [Mass/Vol] 0.8 mg/dL 0.2-1.0 [facility] Calcium [Mass/Vol] 8.6 mg/dL 8.5-10.1 [facility] Chloride [Moles/Vol] 104 mmol/L 98-107 [facility] CO2 [Moles/Vol] 29.9 mmol/L 21.0-32.0 [facility] Creatinine [Mass/Vol] 0.62 mg/dL 0.55-1.02 [facility] GFR/1.73 sq M.predicted MDRD (S/P/Bld) [Vol rate/Area] mL/min/{1.73_m2} >=60 [facility] Glucose [Mass/Vol] 82 mg/dL 74-106 [facility] Magnesium [Mass/Vol] 2.1 mg/dL 1.8-2.4 [facility] Potassium [Moles/Vol] 4.1 mmol/L 3.5-5.1 [facility] Protein [Mass/Vol] 6.7 g/dL 6.4-8.2 [facility] Sodium [Moles/Vol] 140 mmol/L 136-145 [facility] Urea nitrogen [Mass/Vol] 21.0 mg/dL High 7.0-18.0 [facility] Urea nitrogen/Creatinine [Mass ratio] 33.9 mg/mg [facility] Laboratory - Hematology and Cell countson 01-07-2024 Immature granulocytes/100 WBC (Bld) 0.2 % 0.0-0.5 [facility] Leukocytes [#/volume] correc maryjane for nucleated erythrocytes in Blood by Automated counon 01-07-2024 WBC corrected for nucl RBC Auto (Bld) [#/Vol] 5.7 10 3/uL 4.0-11.0 [facility] Lymphocytes Auto (Bld) [#/Vo l]on 01-07-2024 Lymphocytes (Bld) [#/Vol] 2.3 10 3/uL 1.2-3.8 [facility] Lymphocytes/100 WBC Auto (Bl d)on 01-07-2024 Lymphocytes/100 WBC (Bld) 40.0 % 20.5-60.0 [facility] MCH Auto (RBC) [Entitic mass ]on 01-07-2024 MCH (RBC) [Entitic mass] 30.4 pg 26.7-34.0 [facility] MCHC Auto (RBC) [Mass/Vol]on 01-07-2024 MCHC (RBC) [Mass/Vol] 31.6 g/dL 29.9-35.2 [facility] MCV Auto (RBC) [Entitic vol] on 01-07-2024 MCV (RBC) [Entitic vol] 96.1 fL 81.0-99.0 [facility] Monocytes Auto (Bld) [#/Vol] on 01-07-2024 Monocytes (Bld) [#/Vol] 0.7 10 3/uL 0.3-0.8 [facility] Monocytes/100 WBC Auto (Bld) on 01-07-2024 Monocytes/100 WBC (Bld) 11.6 % 1.7-12.0 [facility] Neutrophils Auto (Bld) [#/Vo l]on 01-07-2024 Neutrophils (Bld) [#/Vol] 2.6 10 3/uL 1.4-6.5 [facility] Neutrophils/100 WBC Auto (Bl d)on 01-07-2024 Neutrophils/100 WBC (Bld) 45.4 % 43.0-75.0 [facility] No Panel Informationon 01-06 Eosinophils # (Auto) 0.1 10 3/uL 0.0-0.7 [facility] Immature Granulocyte # (Auto) 0.01 10 3/uL 0.00-0.03 [facility] Phosphorus Level 3.8 mg/dL 2.6-4.7 [facility] Platelet mean volume Auto (B ld) [Entitic vol]on 01-07-2024 Platelet mean volume (Bld) [Entitic vol] 9.7 fL 9.5-13.5 [facility] Platelets Auto (Bld) [#/Vol] on 01-07-2024 Platelets (Bld) [#/Vol] 244 10 3/uL 150-450 [facility] RBC Auto (Bld) [#/Vol]on RBC (Bld) [#/Vol] 4.15 10 6/uL Low 4.20-5.40 [facility] Serum or plasma albumin/glob ulin mass ratioon 01-07-2024 Albumin/Globulin [Mass ratio] 1.0 {ratio} [facility] Serum or plasma anion gap de terminationon 01-07-2024 Anion gap [Moles/Vol] 10.2 mmol/L [facility] XR Hip - right 3 [facility] Result: November 18, 2023 x-rays AP and lateral of the right hip demonstrate a Press-Fit hip replacement good position alignment without evidence of loosening fracture or failure Impression: Stable appearance of right hip replacement Kameron Barry D.O. [facility] Study observation (narrative) [facility] COVID/FLU/RSV RT-PCRon 10-03 SARS-CoV-2 (COVID-19) RNA GÓMEZ+probe Ql (Unsp spec) Positive [facility] Other COVID/FLU/RSV RT-PCR Negative [facility] [employer] Other Alanine aminotransferase [En zymatic activity/volume] in Serum or PlasmaOrdered By: Joshua Phipps on 08-19-2023 ALT [Catalytic activity/Vol] 20 U/L 7-52 [facility] Albumin [Mass/volume] in Ser um or Plasma by Bromocresol green (BCG) dye binding methoOrdered By: Joshua Phipps on 08-19-2023 Albumin BCG dye [Mass/Vol] 4.0 g/dL 3.5-5.7 [facility] Alkaline phosphatase [Enzyma tic activity/volume] in Serum or PlasmaOrdered By: Joshua Phipps on 08-19-2023 ALP [Catalytic activity/Vol] 88 U/L 34-104 [facility] Aspartate aminotransferase [ Enzymatic activity/volume] in Serum or PlasmaOrdered By: Joshua Phipps on 08-19-2023 AST [Catalytic activity/Vol] 16 U/L 13-39 [facility] Basophils Auto (Bld) [#/Vol] Ordered By: Joshua Phipps on 08-19-2023 Basophils (Bld) [#/Vol] 0.0 10*3/uL 0.0-0.2 [facility] Basophils/100 WBC Auto (Bld) Ordered By: Joshua Phipps on 08-19-2023 Basophils/100 WBC (Bld) 0.5 % . [facility] Bilirubin.total [Mass/volume ] in Serum or PlasmaOrdered By: Joshua Phipps on 08-19-2023 Bilirubin [Mass/Vol] 0.4 mg/dL 0.3-1.0 [facility] Calcium [Mass/volume] in Ser um or PlasmaOrdered By: Joshua Phipps on 11-14-2023 Calcium [Mass/Vol] 8.9 mg/dL 8.6-10.3 [facility] Carbon dioxide, total [Moles /volume] in Serum or PlasmaOrdered By: Joshua Phipps on 08-19-2023 CO2 [Moles/Vol] 32.0 mmol/L 21.0-31.0 [facility] Chloride [Moles/volume] in S moe or PlasmaOrdered By: Joshua Phipps on 08-19-2023 Chloride [Moles/Vol] 105 mmol/L 98-107 [facility] Creatinine [Mass/volume] in Serum or PlasmaOrdered By: Joshua Phipps on 08-19-2023 Creatinine [Mass/Vol] 0.53 mg/dL 0.60-1.20 [facility] Eosinophils Auto (Bld) [#/Vo l]Ordered By: Joshua Phipps on 08-19-2023 Eosinophils (Bld) [#/Vol] 0.1 10*3/uL 0.0-0.45 [facility] Eosinophils/100 WBC Auto (Bl d)Ordered By: Joshua Phipps on 08-19-2023 Eosinophils/100 WBC (Bld) 1.7 % . [facility] Erythrocyte distribution wid th Auto (RBC) [Ratio]Ordered By: Joshua Phipps on 08-19-2023 Erythrocyte distribution width (RBC) [Ratio] 14.8 % 11.9-15.3 [facility] Globulin Calc (S) [Mass/Vol] Ordered By: Joshua Phipps on 08-19-2023 Globulin (S) [Mass/Vol] 2.4 g/dL [facility] Glucose [Mass/volume] in Ser um or PlasmaOrdered By: Joshua Phipps on 08-19-2023 Glucose [Mass/Vol] 94 mg/dL 70-100 [facility] Comment on above: ADA recommended refe rence rangeRandom Glucose Reference Range is dependent on time and content of last meal. Glucose of more than 200 mg/dL in a nonstressed, ambulatory subject supports the diagnosis of Diabetes Mellitus. Hematocrit Auto (Bld) [Volum e fraction]Ordered By: Joshua Phipps on 08-19-2023 Hematocrit (Bld) [Volume fraction] 38.1 % 34.0-46.4 [facility] Hemoglobin [Mass/volume] in BloodOrdered By: Joshua Phipps on 08-19-2023 Hemoglobin (Bld) [Mass/Vol] 12.4 g/dL 11.8-15.4 [facility] Leukocytes [#/volume] correc maryjane for nucleated erythrocytes in Blood by Automated counOrdered By: Joshua Phipps on 08-19-2023 WBC corrected for nucl RBC Auto (Bld) [#/Vol] 6.6 10*3/uL 3.8-11.6 [facility] Lymphocytes Auto (Bld) [#/Vo l]Ordered By: Joshua Phipps on 08-19-2023 Lymphocytes (Bld) [#/Vol] 1.5 10*3/uL 1.00-4.8 [facility] Lymphocytes/100 WBC Auto (Bl d)Ordered By: Joshua Phipps on 08-19-2023 Lymphocytes/100 WBC (Bld) 22.9 % . [facility] MCH Auto (RBC) [Entitic mass ]Ordered By: Joshua Phipps on 08-19-2023 MCH (RBC) [Entitic mass] 29.7 pg 24.7-34.3 [facility] MCHC Auto (RBC) [Mass/Vol]Or dered By: Joshua Phipps on 08-19-2023 MCHC (RBC) [Mass/Vol] 32.6 g/dL 32.0-35.0 [facility] MCV Auto (RBC) [Entitic vol] Ordered By: Joshua Phipps on 08-19-2023 MCV (RBC) [Entitic vol] 91.1 fL 80-100 [facility] Magnesium [Mass/volume] in S moe or PlasmaOrdered By: Joshua Phipps on 08-19-2023 Magnesium [Mass/Vol] 2.0 mg/dL 1.9-2.7 [facility] Monocytes Auto (Bld) [#/Vol] Ordered By: Joshua Phipps on 08-19-2023 Monocytes (Bld) [#/Vol] 0.5 10*3/uL 0.0-0.8 [facility] Monocytes/100 WBC Auto (Bld) Ordered By: Joshua Phipps on 08-19-2023 Monocytes/100 WBC (Bld) 8.3 % . [facility] Neutrophils Auto (Bld) [#/Vo l]Ordered By: Joshua Phipps on 08-19-2023 Neutrophils (Bld) [#/Vol] 4.4 10*3/uL 1.8-7.7 [facility] Neutrophils/100 WBC Auto (Bl d)Ordered By: Joshua Phipps on 08-19-2023 Neutrophils/100 WBC (Bld) 66.6 % . [facility] No Panel InformationOrdered By: Joshua Phipps on 08-19-2023 Estimated GFR (CKD-EPI) > 60.0 mL/Min [facility] Creatinine Clearance (Chem N/A [facility] Nucleated erythrocytes [Pres ence] in Blood by Automated countOrdered By: Joshua Phipps on 08-19-2023 Nucleated RBC Auto Ql (Bld) 0.1 /100{WBC} 0-0.5 [facility] Phosphate [Mass/volume] in S moe or PlasmaOrdered By: Joshua Phipps on 08-19-2023 Phosphate [Mass/Vol] 3.9 mg/dL 2.5-4.5 [facility] Platelet mean volume Auto (B ld) [Entitic vol]Ordered By: Joshua Phipps on 08-19-2023 Platelet mean volume (Bld) [Entitic vol] 8.3 fL 6.3-10.7 [facility] Platelets Auto (Bld) [#/Vol] Ordered By: Joshua Phipps on 08-19-2023 Platelets (Bld) [#/Vol] 275 10*3/uL 150-450 [facility] Potassium [Moles/volume] in Serum or PlasmaOrdered By: Joshua hPipps on 08-19-2023 Potassium [Moles/Vol] 4.2 mmol/L 3.5-5.1 [facility] Protein [Mass/volume] in Ser um or PlasmaOrdered By: Joshua Phipps on 08-19-2023 Protein [Mass/Vol] 6.4 g/dL 6.4-8.9 [facility] RBC Auto (Bld) [#/Vol]Ordere d By: Joshua Phipps on 08-19-2023 RBC (Bld) [#/Vol] 4.18 10*6/uL 3.60-5.00 [facility] Serum or plasma albumin/glob ulin mass ratioOrdered By: Joshua Waggonerrow on 08-19-2023 Albumin/Globulin [Mass ratio] 1.7 {ratio} [facility] Serum or plasma anion gap de terminationOrdered By: Joshua Moise on 08-19-2023 Anion gap [Moles/Vol] 7.2 mmol/L 6.0-15.0 [facility] Sodium [Moles/volume] in Ser um or PlasmaOrdered By: Joshua Moise on 08-19-2023 Sodium [Moles/Vol] 140 mmol/L 136-145 [facility] Urea nitrogen [Mass/volume] in Serum or PlasmaOrdered By: Joshua Miose on 08-19-2023 Urea nitrogen [Mass/Vol] 21 mg/dL 7-25 [facility] WBC Auto (Bld) [#/Vol]Ordere d By: Joshua Wagognerrow on 08-19-2023 WBC (Bld) [#/Vol] 6.6 10*3/uL 3.8-11.6 [facility] Office Visiton 04-25-2023 Follow-up visit [id number] Thiago Sabillon 1950 F Date Provider Department Center 04/25/2023 3848-BRENNA BROUSSARD RENATO [facility] Family History Problem Relation Age of Onset Transient ischemic attack Father Family Status - Relation Status Age at Father Level of Service:83378 [place] OFFICE/OUTPATIENT ESTABLISHED MOD MDM 30-39 MIN Normal [facility] PAP ACOG PANEL 2: 30 to 65on 09-22-2022 . . Normal [facility] Comment on above: Performed By: #### [id number] #### [facility] [address] [place] [address] [address] Bree Scott Age Gdln ACOG Testing Comment Normal [facility] Comment on above: Result Comment: <21 or >65 or no age provided Performed By: #### [id number] #### [facility] [address] [place] [address] [address] Bree Scott DIAGNOSIS: Comment Normal [facility] Comment on above: Result Comment: NEGA TIVE FOR INTRAEPITHELIAL LESION OR MALIGNANCY. CELLULAR CHANGES ASSOCIATED WITH ATROPHY ARE PRESENT. Performed By: #### [id number] #### [facility] [address] [place] [address] [address] Bree Scott Methodology: Comment Normal [facility] Comment on above: Result Comment: This liquid based ThinPrep(R) pap test was screened with the use of an image guided system. Performed By: #### [id number] #### [facility] [address] [place] [address] [address] Bree Scott Note: Comment Normal [facility] Comment on above: Result Comment: The Pap smear is a screening test designed to aid in the detection of premalignant and malignant conditions of the uterine cervix. It is not a diagnostic procedure and should not be used as the sole means of detecting cervical cancer. Both false-positive and false-negative reports do occur. . Performed By: #### [id number] #### [facility] [address] [place] [address] Dr. Bree Scott Performed by: Comment Normal [facility] Comment on above: Result Comment: Cherri Rodriguez, Freelance Web Designer (ASCP) Performed By: #### [id number] #### [facility] [address] [place] [address] Dr. Bree Scott Specimen adequacy: Comment Normal [facility] Comment on above: Result Comment: Sati sfactory for evaluation. Endocervical component may not be distinguished in cases of atrophy. Performed By: #### [id number] #### [facility] [address] [place] [address] [address] Bree Scott CREATININEon 06-12-2022 Creatinine [Mass/Vol] 0.67 mg/dL Normal 0.55-1.02 [facility] Comment on above: Performed By: #### C HAYLEY #### [facility] [address] [place] [address] Dr. Bree Scott EGFR-AF BURUNDIAN >60 Normal >=60 [facility] Comment on above: Performed By: #### C HAYLEY #### [facility] [address] [place], [place] [address] Dr. Bree Scott EGFR-NON AF BURUNDIAN >60 Normal >=60 [facility] Comment on above: Performed By: #### C HAYLEY #### [facility] [address] [place], [place] [address] Dr. Bree Scott CTA ABD/PELVIS WO W [...] JACK SABILLON Date: 2022-06-12 21:49 Normal [facility] US EXT NON VASC LIMITED RTon [...] JACK SABILLON Date: 2022-05-21 10:04 Normal [facility] CBC AUTO DIFFon 04-24-2022 BASO # 0.0 103/ul Normal 0.0-0.1 [facility] Comment on above: Performed By: #### C BC #### [facility] [address] [place] [address] Dr. Bree Scott Basophils/100 WBC (Bld) 0.6 % Normal 0.2-2.0 [facility] Comment on above: Performed By: #### C BC #### [facility] [address] [place] [address] Dr. Bree Scott EO # 0.2 103/ul Normal 0.0-0.7 [facility] Comment on above: Performed By: #### C BC #### [facility] [address] [place] [address] Dr. Bree Scott Eosinophils/100 WBC (Bld) 2.6 % Normal 0.9-7.0 [facility] Comment on above: Performed By: #### C BC #### [facility] [address] [place] [address] Dr. Bree Scott Erythrocyte distribution width (RBC) [Ratio] 13.3 % Normal 11.0-15.0 [facility] Comment on above: Performed By: #### C BC #### [facility] [address] [place] [address] Dr. Bree Scott Hematocrit (Bld) [Volume fraction] 40.5 % Normal 36.0-48.0 [facility] Comment on above: Performed By: #### C BC #### [facility] [address] [place] [address] Dr. Bree Scott Hemoglobin (Bld) [Mass/Vol] 13.1 g/dL Normal 12.0-16.0 [facility] Comment on above: Performed By: #### C BC #### [facility] [address] [place] [address] Dr. Bree Scott IG # 0.01 10e3/ul Normal 0.00-0.03 [facility] Comment on above: Performed By: #### C BC #### [facility] [address] [place] [address] Dr. Bree Scott IG % 0.2 % Normal 0.0-0.5 [facility] Comment on above: Performed By: #### C BC #### [facility] [address] [place] [address] Dr. Bree Scott LYMPH # 2.1 103/ul Normal 1.2-3.8 [facility] Comment on above: Performed By: #### C BC #### [facility] [address] [place] [address] Dr. Bree Scott Lymphocytes/100 WBC (Bld) 31.8 % Normal 20.5-60.0 [facility] Comment on above: Performed By: #### C BC #### [facility] [address] [place] [address] Dr. Bree Scott MANUAL DIFF REQ NO Normal [facility] Comment on above: Performed By: #### C BC #### [facility] [address] [place] [address] Dr. Bree Scott MCH (RBC) [Entitic mass] 30.5 pg Normal 26.7-34.0 [facility] Comment on above: Performed By: #### C BC #### [facility] [address] [place] [address] Dr. Bree Scott MCHC (RBC) [Mass/Vol] 32.3 g/dL Normal 29.9-35.2 [facility] Comment on above: Performed By: #### C BC #### [facility] [address] [place] [address] Dr. Bree Scott MCV (RBC) [Entitic vol] 94.4 fL Normal 81.0-99.0 [facility] Comment on above: Performed By: #### C BC #### [facility] [address] [place] [address] Dr. Bree Scott MONO # 0.6 103/ul Normal 0.3-0.8 [facility] Comment on above: Performed By: #### C BC #### [facility] [address] [place] [address] Dr. Bree Scott Monocytes/100 WBC (Bld) 9.9 % Normal 1.7-12.0 [facility] Comment on above: Performed By: #### C BC #### [facility] [address] [place] [address] Dr. Bree Scott NEUT # 3.5 103/ul Normal 1.4-6.5 [facility] Comment on above: Performed By: #### C BC #### [facility] [address] [place] [address] Dr. Bree Scott Neutrophils/100 WBC (Bld) 54.9 % Normal 43.0-75.0 [facility] Comment on above: Performed By: #### C BC #### [facility] [address] [place] [address] Dr. Bree Scott Platelet mean volume (Bld) [Entitic vol] 9.2 fL Critically low 9.5-13.5 [facility] Comment on above: Performed By: #### C BC #### [facility] [address] [place] [address] Dr. Bree Scott PLT 243 103/ul Normal 150-450 [facility] Comment on above: Performed By: #### C BC #### [facility] [address] [place] [address] Dr. Bree Scott RBC 4.29 106/ul Normal 4.20-5.40 [facility] Comment on above: Performed By: #### C BC #### [facility] [address] [place], [place] [address] Dr. Bree Scott WBC 6.4 103/ul Normal 4.0-11.0 [facility] Comment on above: Performed By: #### C BC #### [facility] [address] [place], [place] [address] Dr. Bree Scott ECHOCARDIO M/2D COMPLETEon 0 04-24-2022 ECHOCARDIO M/2D COMPLETE Patient: THIAGO SABILLON Exam Date: 04/24/2022 : 1950 Gender:F Ordering : LISA EATON Admission #: [id number] Family : DR KALLIE CHASE M.D. Order #: [id number] CLICK HERE TO VIEW EXAM ECHOCARDIOGRAM REPORT [...] Jane M.D. on 04/24/2022 at 16:45 Normal [facility] LIPID PROFILEon 04-24-2022 CHOL-HDL RATIO NORM SEE BELOW Normal [facility] Comment on above: Result Comment: 3.3 - 4.4 LOW RISK 4.4 - 7.1 AVERAGE RISK 7.1 - 11.0 MODERATE RISK >11.0 HIGH RISK Performed By: #### C MP, LIPID #### [facility] [address] [place] [address] Dr. Bree Scott Cholesterol [Mass/Vol] 136 mg/dL Normal <=200 [facility] Comment on above: Performed By: #### C MP, LIPID #### [facility] [address] [place] [address] Dr. Bree Scott Cholesterol in HDL [Mass/Vol] 64 mg/dL Critically high 40-60 [facility] Comment on above: Performed By: #### C MP, LIPID #### [facility] [address] [place] [address] Dr. Bree Scott Cholesterol in LDL [Mass/Vol] 63.8 mg/dL Normal [facility] Comment on above: Performed By: #### C MP, LIPID #### [facility] [address] [address] [address] Bree Scott Cholesterol.total/Cho lesterol in HDL [Mass ratio] 2.1 {ratio} Normal [facility] Comment on above: Performed By: #### C MP, LIPID #### [facility] [address] [address] [address] Bree Scott HDL NORMAL > or = 60 mg/dl - LO W CARDIOVASCULAR RISK <40 mg/dl - HIGH CARDIOVASCULAR RISK Normal [facility] Comment on above: Performed By: #### C MP, LIPID #### [facility] [address] [address] [address] Bree Scott LDL CALC NORMAL SEE BELOW Normal [facility] Comment on above: Result Comment: <100 mg/dl OPTIMAL 100 - 129 mg/dl NEAR OR ABOVE OPTIMAL 130 - 159 mg/dl BORDERLINE HIGH 160 - 189 mg/dl HIGH >190 mg/dl VERY HIGH Performed By: #### C MP, LIPID #### [facility] [address] [address] [address] Bree Scott Triglyceride [Mass/Vol] 41 mg/dL Normal <=150 [facility] Comment on above: Performed By: #### C MP, LIPID #### [facility] [address] [address] [address] Bree Scott VLDL CALC 8.2 mg/dL Normal [facility] [facility] Comment on above: Performed By: #### C MP, LIPID #### [facility] [address] [address] [address] Bree Scott PROF 14(COMP METB)on 022 Albumin [Mass/Vol] 3.4 g/dL Normal 3.4-5.[address] [facility] Comment on above: Performed By: #### C MP, LIPID #### [facility] [address] [address] [address] Bree Scott Albumin/Globulin [Mass ratio] 1.2 {ratio} Normal [facility] Comment on above: Performed By: #### C MP, LIPID #### [facility] [address] [address] [address] Bree Scott ALP [Catalytic activity/Vol] 72 U/L Normal 46-116 [facility] Comment on above: Performed By: #### C MP, LIPID #### [facility] [address] [address] [address] Bree Scott ALT [Catalytic activity/Vol] 45 U/L Normal 14-59 [facility] Comment on above: Performed By: #### C MP, LIPID #### [facility] [address] [address] [address] Bree Scott Anion gap [Moles/Vol] 9.1 mmol/L Normal [facility] Comment on above: Performed By: #### C MP, LIPID #### [facility] [address] [address] [address] Bree Scott AST [Catalytic activity/Vol] 22 U/L Normal 15-37 [facility] Comment on above: Performed By: #### C MP, LIPID #### [facility] [address] [address] [address] Bree Scott Bilirubin [Mass/Vol] 0.6 mg/dL Normal 0.2-1.0 [facility] Comment on above: Performed By: #### C MP, LIPID #### [facility] [address] [address] [address] Bree Scott Calcium [Mass/Vol] 8.6 mg/dL Normal 8.5-10.[address] [facility] Comment on above: Performed By: #### C MP, LIPID #### [facility] [address] [address] [address] Bree Scott Chloride [Moles/Vol] 106 mmol/L Normal 98-107 [facility] Comment on above: Performed By: #### C MP, LIPID #### [facility] [address] [address] [address] Bree Scott CO2 [Moles/Vol] 31.4 mmol/L Normal 21.0-32.0 [facility] Comment on above: Performed By: #### C MP, LIPID #### [facility] [address] [address] [address] Bree Scott Creatinine [Mass/Vol] 0.60 mg/dL Normal 0.55-1.02 [facility] Comment on above: Performed By: #### C MP, LIPID #### [facility] [address] [address] [address] Bree Scott EGFR-AF BURUNDIAN >60 Normal >=60 [facility] Comment on above: Performed By: #### C MP, LIPID #### [facility] [address] [address] [address] Bree Scott EGFR-NON AF BURUNDIAN >60 Normal >=60 [facility] Comment on above: Performed By: #### C MP, LIPID #### [facility] [address] [place] [address] Dr. Bree Scott Globulin (S) [Mass/Vol] 2.9 g/dL Normal [facility] Comment on above: Performed By: #### C MP, LIPID #### [facility] [address] [address] [address] Bree Scott Glucose [Mass/Vol] 95 mg/dL Normal 74-[address] [facility] Comment on above: Performed By: #### C MP, LIPID #### [facility] [address] [address] [address] Bree Scott Potassium [Moles/Vol] 4.5 mmol/L Normal 3.5-5.1 [facility] Comment on above: Performed By: #### C MP, LIPID #### [facility] [address] [address] [address] Bree Scott Protein [Mass/Vol] 6.3 g/dL Critically low 6.4-8.2 [facility] Comment on above: Performed By: #### C MP, LIPID #### [facility] [address] [address] [address] Bree Scott Sodium [Moles/Vol] 142 mmol/L Normal 136-145 [facility] Comment on above: Performed By: #### C MP, LIPID #### [facility] [address] [place], [place] [address] Dr. Bree Scott Urea nitrogen [Mass/Vol] 28.0 mg/dL Critically high 7.0-18.0 [facility] Comment on above: Performed By: #### C MP, LIPID #### [facility] [address] [place], [place] [address] Dr. Bree Scott Urea nitrogen/Creatinine [Mass ratio] 46.7 mg/mg Normal [facility] Comment on above: Performed By: #### C MP, LIPID #### [facility] [address] [place], [place] [address] Dr. Bree Scott BASIC METABOLIC PANELon 03-07 Calcium [Mass/Vol] 8.9 mg/dL Normal 8.6-10.3 [facility] Comment on above: Order Comment: evalu ate Atelectasis Performed By: #### 0 0071, 94824 ####[facility] [place] [address], [place] Chloride [Moles/Vol] 99 mmol/L Normal 98-107 [facility] Comment on above: Order Comment: evalu ate Atelectasis Performed By: #### 0 0071, 08718 ####[facility] [place] [address], [place] CO2 [Moles/Vol] 30 mmol/L Normal 21-31 [facility] Comment on above: Order Comment: evalu ate Atelectasis Performed By: #### 0 0071, [id number] ####[facility] [place] [address], [place] Creatinine [Mass/Vol] 0.51 mg/dL Low 0.60-1.20 [facility] Comment on above: Order Comment: evalu ate Atelectasis Performed By: #### 0 0071, 91021 ####[facility] [place] [address], [place] GFR/1.73 sq M.predicted among blacks MDRD (S/P/Bld) [Vol rate/Area] mL/min/{1.73_m2} Normal >60 [facility] Comment on above: Order Comment: evalu ate Atelectasis Performed By: #### 0 0071, 36957 ####[facility] [place] [address], [facility] GFR/1.73 sq M.predicted among non-blacks MDRD (S/P/Bld) [Vol rate/Area] mL/min/{1.73_m2} Normal >60 [facility] Comment on above: Order Comment: evalu ate Atelectasis Performed By: #### 0 0071, 60266 ####[facility] [place] [address], [facility] Glucose [Mass/Vol] 82 mg/dL Normal 70-100 [facility] Comment on above: Order Comment: evalu ate Atelectasis Performed By: #### 0 0071, 63461 ####[facility] [place] [address], [facility] Potassium [Moles/Vol] 4.0 mmol/L Normal 3.5-5.1 [facility] Comment on above: Order Comment: evalu ate Atelectasis Performed By: #### 0 0071, 77267 ####[facility] [place] [address], [place] Sodium [Moles/Vol] 135 mmol/L Low 136-145 [facility] Comment on above: Order Comment: evalu ate Atelectasis Performed By: #### 0 0071, 48548 ####[facility] [place] [address], [facility] Urea nitrogen [Mass/Vol] 17 mg/dL Normal 7-25 [facility] Comment on above: Order Comment: evalu ate Atelectasis Performed By: #### 0 0071, 88015 ####[facility] CBC COMPLETE BLOOD COUNTon 0 03-27-2021 Erythrocyte distribution width (RBC) [Ratio] 13.2 % Normal 11.5-15.0 [facility] Comment on above: Order Comment: No: D o not add to previous draw Performed By: #### 8 5499 #### [facility] [address] [place] [address], [facility] Hematocrit (Bld) [Volume fraction] 33.1 % Low 36.0-45.0 [facility] Comment on above: Order Comment: No: D o not add to previous draw Performed By: #### 8 [id number] #### [facility] [address] [facility] [place] [address], [facility] Hemoglobin (Bld) [Mass/Vol] 10.4 g/dL Low 12.0-15.0 [facility] Comment on above: Order Comment: No: D o not add to previous draw Performed By: #### 8 [id number] #### [facility] [address] [place] [address], [facility] MCH (RBC) [Entitic mass] 30.1 pg Normal 27.0-33.0 [facility] Comment on above: Order Comment: No: D o not add to previous draw Performed By: #### 8 [id number] #### [facility] [address] [place] [address], [facility] MCHC (RBC) [Mass/Vol] 31.4 g/dL Low 32.0-35.0 [facility] Comment on above: Order Comment: No: D o not add to previous draw Performed By: #### 8 [id number] #### [facility] [address] [place] [address], [facility] MCV (RBC) [Entitic vol] 95.9 fL Normal 82.0-98.0 [facility] Comment on above: Order Comment: No: D o not add to previous draw Performed By: #### 8 [id number] #### [facility] [address] [place] [address], [facility] Nucleated RBC/100 WBC (Bld) [Ratio] 0 % Normal 0-0 [facility] Comment on above: Order Comment: No: D o not add to previous draw Performed By: #### 8 [id number] #### [facility] [address] [place] [address], [facility] PLAT CNT 303 10*3/uL Normal 150-400 [facility] Comment on above: Order Comment: No: D o not add to previous draw Performed By: #### 8 5499 #### [facility] [address] [facility] [place] [address], [facility] RBC (Bld) [#/Vol] 3.45 10*6/uL Low 3.80-5.00 [facility] Comment on above: Order Comment: No: D o not add to previous draw Performed By: #### 8 [id number] #### [facility] [address] [place] [address], [facility] WBC (Bld) [#/Vol] 8.08 10*3/uL Normal 4.00-10.60 [facility] Comment on above: Order Comment: No: D o not add to previous draw Performed By: #### 8 [id number] #### [facility] [address] [place] [address], [facility] MAGNESIUM BLOODon 03-27-2021 Magnesium [Mass/Vol] 1.9 mg/dL Normal 1.9-2.7 [facility] Comment on above: Order Comment: evalu ate Atelectasis Performed By: #### 0 0071, 73396 ####[facility] [facility] [place] [address], [facility] POC GLUCOSE LABon 03-27-2021 Glucose [Mass/Vol] 87 mg/dL Normal 70-100 [facility] Comment on above: Performed By: #### 3 1595 #### [facility] [address] [facility] [place] [address], [facility] Glucose [Mass/Vol] 110 mg/dL High 70-100 [facility] Comment on above: Performed By: #### 8 5499 #### [facility] [address] [facility] [place] [address], [facility] Glucose [Mass/Vol] 114 mg/dL High 70-100 [facility] Comment on above: Performed By: #### 8 5499 #### [facility] [address] [place] [address], [facility] PORTABLE CHEST 1 VIEWon 03-07 PORTABLE CHEST 1 VIEW [facility] Department of Radiology [address] [place] [address] Patient Name: THIAGO SABILLON : 1950 Sex: F Age: Race: White Pt. Location: [address] [place] [address] Patient Status: I Ordered Date: 03/27/2021 5:00:00 [...] persist. Electronically signed: Vernell Mcclure. Transcribed by: [email or web address], User Resident: Electronically Signed by: VERNELL MCCLURE @ 03/27/2021 07:43 AM Normal [facility] Comment on above: Order Comment: evalu ate Atelectasis BASIC METABOLIC PANELon - Calcium [Mass/Vol] 8.3 mg/dL Low 8.6-10.3 [facility] Comment on above: Order Comment: evalu ate Atelectasis Performed By: #### 0 0071, 01452 ####[facility] [facility] [place] [address], [facility] Chloride [Moles/Vol] 102 mmol/L Normal 98-107 [facility] Comment on above: Order Comment: evalu ate Atelectasis Performed By: #### 0 0071, 72808 ####[facility] [facility] [place] [address], [facility] CO2 [Moles/Vol] 31 mmol/L Normal 21-31 [facility] Comment on above: Order Comment: evalu ate Atelectasis Performed By: #### 0 0071, 19524 ####[facility] [place] [address], [facility] Creatinine [Mass/Vol] 0.50 mg/dL Low 0.60-1.20 [facility] Comment on above: Order Comment: evalu ate Atelectasis Performed By: #### 0 0071, 85021 ####[facility] [place] [address], [facility] GFR/1.73 sq M.predicted among blacks MDRD (S/P/Bld) [Vol rate/Area] mL/min/{1.73_m2} Normal >60 [facility] Comment on above: Order Comment: evalu ate Atelectasis Performed By: #### 0 0071, 98255 ####[facility] [place] [address], [facility] GFR/1.73 sq M.predicted among non-blacks MDRD (S/P/Bld) [Vol rate/Area] mL/min/{1.73_m2} Normal >60 [facility] Comment on above: Order Comment: evalu ate Atelectasis Performed By: #### 0 0071, 65534 ####[facility] [place] [address], [facility] Glucose [Mass/Vol] 125 mg/dL High 70-100 [facility] Comment on above: Order Comment: evalu ate Atelectasis Performed By: #### 0 0071, 51311 ####[facility] [place] [address], [place] Potassium [Moles/Vol] 4.1 mmol/L Normal 3.5-5.1 [facility] Comment on above: Order Comment: evalu ate Atelectasis Performed By: #### 0 0071, 43911 ####[facility] [place] [address], [place] Sodium [Moles/Vol] 138 mmol/L Normal 136-145 [facility] Comment on above: Order Comment: evalu ate Atelectasis Performed By: #### 0 0071, 76459 ####[facility] [place] [address], [place] Urea nitrogen [Mass/Vol] 18 mg/dL Normal 7-25 [facility] Comment on above: Order Comment: evalu ate Atelectasis Performed By: #### 0 0071, 35899 ####[facility] [place] [address], [place] CBC COMPLETE BLOOD COUNTon 0 03-26-2021 Erythrocyte distribution width (RBC) [Ratio] 13.4 % Normal 11.5-15.0 [facility] Comment on above: Order Comment: No: D o not add to previous drawNurse draw Performed By: #### 8 [id number] #### [facility] [address] [place] [address], [facility] Hematocrit (Bld) [Volume fraction] 29.3 % Low 36.0-45.0 [facility] Comment on above: Order Comment: No: D o not add to previous drawNurse draw Performed By: #### 8 5499 #### [facility] [address] [place] [id number], [facility] Hemoglobin (Bld) [Mass/Vol] 9.2 g/dL Low 12.0-15.0 [facility] Comment on above: Order Comment: No: D o not add to previous drawNurse draw Performed By: #### 8 5499 #### [facility] [address] [place] [address], [facility] MCH (RBC) [Entitic mass] 30.4 pg Normal 27.0-33.0 [facility] Comment on above: Order Comment: No: D o not add to previous drawNurse draw Performed By: #### 8 5499 #### [facility] [address] [place] [address], [facility] MCHC (RBC) [Mass/Vol] 31.4 g/dL Low 32.0-35.0 [facility] Comment on above: Order Comment: No: D o not add to previous drawNurse draw Performed By: #### 8 5499 #### [facility] [address] [place] [address], [facility] MCV (RBC) [Entitic vol] 96.7 fL Normal 82.0-98.0 [facility] Comment on above: Order Comment: No: D o not add to previous drawNurse draw Performed By: #### 8 5499 #### [facility] [address] [place] [address], [facility] Nucleated RBC/100 WBC (Bld) [Ratio] 0 % Normal 0-0 [facility] Comment on above: Order Comment: No: D o not add to previous drawNurse draw Performed By: #### 8 5499 #### [facility] [address] [place] [address], [facility] PLAT CNT 223 10*3/uL Normal 150-400 [facility] Comment on above: Order Comment: No: D o not add to previous drawNurse draw Performed By: #### 8 5499 #### [facility] [address] [place] [address], [facility] RBC (Bld) [#/Vol] 3.03 10*6/uL Low 3.80-5.00 [facility] Comment on above: Order Comment: No: D o not add to previous drawNurse draw Performed By: #### 8 5499 #### [facility] [address] [place] [address], [facility] WBC (Bld) [#/Vol] 7.67 10*3/uL Normal 4.00-10.60 [facility] Comment on above: Order Comment: No: D o not add to previous drawNurse draw Performed By: #### 8 5499 #### [facility] [address] [place] [address], [facility] MAGNESIUM BLOODon 03-26-2021 Magnesium [Mass/Vol] 1.9 mg/dL Normal 1.9-2.7 [facility] Comment on above: Order Comment: evalu ate Atelectasis Performed By: #### 0 0071, 49371 ####[facility] [facility] [place] [address], [facility] POC GLUCOSE LABon 03-26-2021 Glucose [Mass/Vol] 81 mg/dL Normal 70-100 [facility] Comment on above: Performed By: #### 3 1595 #### [facility] [address] [facility] [place] [address], [facility] Glucose [Mass/Vol] 286 mg/dL High 70-100 [facility] Comment on above: Performed By: #### 8 5499 #### [facility] [address] [facility] [place] [address], [facility] Glucose [Mass/Vol] 164 mg/dL High 70-100 [facility] Comment on above: Performed By: #### 5 0608 #### [facility] [address] [place] [address], [facility] PORTABLE CHEST 1 VIEWon 03-07 PORTABLE CHEST 1 VIEW [facility] Department of Radiology [address] [place] [id number] Patient Name: THIAGO SABILLON : 1950 Sex: F Age: Race: White Pt. Location: [place] [address] Patient Status: I Ordered Date: 03/26/2021 5:00:00 [...] lung. Electronically signed: Vernell Mcclure. Transcribed by: [email or web address], User Resident: Electronically Signed by: VERNELL MCCLURE @ 03/26/2021 06:40 AM Normal [facility] Comment on above: Order Comment: The A ptima SARS-CoV-2 assay is a nucleic acid amplification test intended for the qualitative detection of RNA from SARS-CoV-2 isolated and purified from nasopharyngeal (NEUROLOGY PROFESSOR),oropharyngeal (OP), nasal swab, sputum, and bronchoalveolar lavage (BAL) specimens from patients with signs and symptoms of infection who are suspected of COVID-19. Results are for the identification of SARS-CoV-2 RNA. The SARS-CoV-2 RNA is generally detectable during the acute phase of infection. The Aptima SARS-CoV-2 Assay on the [employer] and [place] Fusion system is intended for use by laboratory personnel specifically instructed and trained in the operation of the [place] [employer] [place] [employer] system. The Aptima SARS-CoV-2 assay is [...] history, and epidemiological information. BASIC METABOLIC PANELon 03-07 Calcium [Mass/Vol] 8.3 mg/dL Low 8.6-10.3 [facility] Comment on above: Order Comment: No: D o not add to previous draw Performed By: #### 3 1365 #### [facility] [address] Chloride [Moles/Vol] 99 mmol/L Normal 98-107 [facility] Comment on above: Order Comment: No: D o not add to previous draw Performed By: #### 3 0965 #### [facility] [address] [place] [address], [place] CO2 [Moles/Vol] 29 mmol/L Normal 21-31 [facility] Comment on above: Order Comment: No: D o not add to previous draw Performed By: #### 3 0965 #### [facility] [address] [place] [address], [place] Creatinine [Mass/Vol] 0.53 mg/dL Low 0.60-1.20 [facility] Comment on above: Order Comment: No: D o not add to previous draw Performed By: #### 3 0965 #### [facility] [address] [place] [address], [place] GFR/1.73 sq M.predicted among blacks MDRD (S/P/Bld) [Vol rate/Area] mL/min/{1.73_m2} Normal >60 [facility] Comment on above: Order Comment: No: D o not add to previous draw Performed By: #### 3 0965 #### [facility] [address] [place] [address], [place] GFR/1.73 sq M.predicted among non-blacks MDRD (S/P/Bld) [Vol rate/Area] mL/min/{1.73_m2} Normal >60 [facility] Comment on above: Order Comment: No: D o not add to previous draw Performed By: #### 3 0965 #### [facility] [address] [place] [address], [place] Glucose [Mass/Vol] 104 mg/dL High 70-100 [facility] Comment on above: Order Comment: No: D o not add to previous draw Performed By: #### 3 0965 #### [facility] [address] [place] [address], [place] Potassium [Moles/Vol] 4.1 mmol/L Normal 3.5-5.1 [facility] Comment on above: Order Comment: No: D o not add to previous draw Performed By: #### 3 0965 #### [facility] [address] [place] [address], [place] Sodium [Moles/Vol] 134 mmol/L Low 136-145 [facility] Comment on above: Order Comment: No: D o not add to previous draw Performed By: #### 3 0965 #### [facility] [address] [place] [id number], [facility] Urea nitrogen [Mass/Vol] 21 mg/dL Normal 7-25 [facility] Comment on above: Order Comment: No: D o not add to previous draw Performed By: #### 3 0965 #### [facility] [address] [place] [id number], [facility] CBC COMPLETE BLOOD COUNTon 0 03-25-2021 Erythrocyte distribution width (RBC) [Ratio] 13.4 % Normal 11.5-15.0 [facility] Comment on above: Order Comment: No: D o not add to previous draw Performed By: #### 8 [id number] #### [facility] [address] [place] [id number], [facility] Hematocrit (Bld) [Volume fraction] 28.4 % Low 36.0-45.0 [facility] Comment on above: Order Comment: No: D o not add to previous draw Performed By: #### 8 [id number] #### [facility] [address] [place] [address], [place] Hemoglobin (Bld) [Mass/Vol] 9.4 g/dL Low 12.0-15.0 [facility] Comment on above: Order Comment: No: D o not add to previous draw Performed By: #### 8 [id number] #### [facility] [address] [place] [id number], [facility] MCH (RBC) [Entitic mass] 31.0 pg Normal 27.0-33.0 [facility] Comment on above: Order Comment: No: D o not add to previous draw Performed By: #### 8 [id number] #### [facility] [address] [place] [address], [facility] MCHC (RBC) [Mass/Vol] 33.1 g/dL Normal 32.0-35.0 [facility] Comment on above: Order Comment: No: D o not add to previous draw Performed By: #### 8 [id number] #### [facility] [address] [place] [address], [facility] MCV (RBC) [Entitic vol] 93.7 fL Normal 82.0-98.0 [facility] Comment on above: Order Comment: No: D o not add to previous draw Performed By: #### 8 [id number] #### [facility] [address] [place] [address], [facility] Nucleated RBC/100 WBC (Bld) [Ratio] 0 % Normal 0-0 [facility] Comment on above: Order Comment: No: D o not add to previous draw Performed By: #### 8 [id number] #### [facility] C[facility] [address] [place] [id number], [facility] PLAT CNT 191 10*3/uL Normal 150-400 [facility] Comment on above: Order Comment: No: D o not add to previous draw Performed By: #### 8 [id number] #### [facility] [address] [place] [address], [facility] RBC (Bld) [#/Vol] 3.03 10*6/uL Low 3.80-5.00 [facility] Comment on above: Order Comment: No: D o not add to previous draw Performed By: #### 8 5499 #### [facility] [address] [place] [id number], [facility] WBC (Bld) [#/Vol] 9.57 10*3/uL Normal 4.00-10.60 [facility] Comment on above: Order Comment: No: D o not add to previous draw Performed By: #### 8 5499 #### [facility] [address] [place] [address], [facility] MAGNESIUM BLOODon 03-25-2021 Magnesium [Mass/Vol] 2.2 mg/dL Normal 1.9-2.7 [facility] Comment on above: Order Comment: No: D o not add to previous draw Performed By: #### 3 0965 #### [facility] [address] [place] [address], [facility] PHOSPHORUS BLOODon Phosphate [Mass/Vol] 2.6 mg/dL Normal 2.5-5.0 [facility] Comment on above: Order Comment: No: D o not add to previous draw Performed By: #### 3 0965 #### [facility] [address] [facility] [place] [address], [facility] POC GLUCOSE LABon 03-25-2021 Glucose [Mass/Vol] 129 mg/dL High 70-100 [facility] Comment on above: Performed By: #### 8 5499 #### [facility] [address] [address], [facility] Glucose [Mass/Vol] 129 mg/dL High 70-100 [facility] Comment on above: Performed By: #### 5 0608 #### [facility] [address] [place] [address], [facility] PORTABLE CHEST 1 VIEWon 03-07 PORTABLE CHEST 1 VIEW [facility] Department of Radiology [address] [place] [id number] Patient Name: THIAGO SABILLON : 1950 Sex: F Age: Race: White Pt. Location: [place] [address] Patient Status: I Ordered Date: 03/25/2021 5:00:00 [...] effusion Electronically signed: Zina Brenner. Transcribed by: [email or web address], User Resident: Electronically Signed by: ZINA BRENNER @ 03/25/2021 08:07 AM Normal [facility] Comment on above: Order Comment: evalu ate for Pneumothorax TSH3 WITH REFLEX FT4on 03-25 TSH 3RD GENERATION 1.06 uIU/mL Normal 0.34-5.60 [facility] Comment on above: Order Comment: No: D o not add to previous draw Performed By: #### 3 0965 #### [facility] [address] [place] [address], [facility] BASIC METABOLIC PANELon 06- Calcium [Mass/Vol] 8.5 mg/dL Low 8.6-10.3 [facility] Comment on above: Order Comment: evalu ate Atelectasis Performed By: #### 1 69, 13641 ####[facility] [place] [address], [facility] Chloride [Moles/Vol] 100 mmol/L Normal 98-107 [facility] Comment on above: Order Comment: evalu ate Atelectasis Performed By: #### 1 69, 32019 ####[facility] [place] [address], [facility] CO2 [Moles/Vol] 27 mmol/L Normal 21-31 [facility] Comment on above: Order Comment: evalu ate Atelectasis Performed By: #### 1 69, 38339 ####[facility] [place] [address], [facility] Creatinine [Mass/Vol] 0.70 mg/dL Normal 0.60-1.20 [facility] Comment on above: Order Comment: evalu ate Atelectasis Performed By: #### 1 69, 59385 ####[facility] [place] [address], [facility] GFR/1.73 sq M.predicted among blacks MDRD (S/P/Bld) [Vol rate/Area] mL/min/{1.73_m2} Normal >60 [facility] Comment on above: Order Comment: evalu ate Atelectasis Performed By: #### 1 69, 26206 ####[facility] [place] [address], [place] GFR/1.73 sq M.predicted among non-blacks MDRD (S/P/Bld) [Vol rate/Area] mL/min/{1.73_m2} Normal >60 [facility] Comment on above: Order Comment: evalu ate Atelectasis Performed By: #### 1 69, 63500 ####[facility] [place] [address], [place] Glucose [Mass/Vol] 122 mg/dL High 70-100 [facility] Comment on above: Order Comment: evalu ate Atelectasis Performed By: #### 1 69, 16024 ####[facility] [place] [address], [place] Potassium [Moles/Vol] 4.7 mmol/L Normal 3.5-5.1 [facility] Comment on above: Order Comment: evalu ate Atelectasis Performed By: #### 1 69, 56474 ####[facility] [place] [address], [place] Sodium [Moles/Vol] 133 mmol/L Low 136-145 [facility] Comment on above: Order Comment: evalu ate Atelectasis Performed By: #### 1 69, 28566 ####[facility] [place] [address], [place] Urea nitrogen [Mass/Vol] 30 mg/dL High 7-25 [facility] Comment on above: Order Comment: evalu ate Atelectasis Performed By: #### 1 69, 19136 ####[facility] [place] [address], [place] CBC COMPLETE BLOOD COUNTon 0 - Erythrocyte distribution width (RBC) [Ratio] 13.5 % Normal 11.5-15.0 [facility] Comment on above: Order Comment: No: D o not add to previous draw Nurse draw Performed By: #### 5 0608 #### [facility] [address] [place] [address], [place] Hematocrit (Bld) [Volume fraction] 30.7 % Low 36.0-45.0 [facility] Comment on above: Order Comment: No: D o not add to previous draw Nurse draw Performed By: #### 5 0608 #### [facility] [address] [place] [address], [facility] Hemoglobin (Bld) [Mass/Vol] 10.0 g/dL Low 12.0-15.0 [facility] Comment on above: Order Comment: No: D o not add to previous draw Nurse draw Performed By: #### 5 0608 #### [facility] [address] [place] [address], [facility] MCH (RBC) [Entitic mass] 30.7 pg Normal 27.0-33.0 [facility] Comment on above: Order Comment: No: D o not add to previous draw Nurse draw Performed By: #### 5 0608 #### [facility] [address] MCHC (RBC) [Mass/Vol] 32.6 g/dL Normal 32.0-35.0 [facility] Comment on above: Order Comment: No: D o not add to previous draw Nurse draw Performed By: #### 5 0608 #### [facility] [address] [place] [address], [facility] MCV (RBC) [Entitic vol] 94.2 fL Normal 82.0-98.0 [facility] Comment on above: Order Comment: No: D o not add to previous draw Nurse draw Performed By: #### 5 0608 #### [facility] [address] [place] [address], [facility] Nucleated RBC/100 WBC (Bld) [Ratio] 0 % Normal 0-0 [facility] Comment on above: Order Comment: No: D o not add to previous draw Nurse draw Performed By: #### 5 0608 #### [facility] [address] [place] [address], [facility] PLAT CNT 214 10*3/uL Normal 150-400 [facility] Comment on above: Order Comment: No: D o not add to previous draw Nurse draw Performed By: #### 5 0608 #### [facility] [address] [place] [address], [facility] RBC (Bld) [#/Vol] 3.26 10*6/uL Low 3.80-5.00 [facility] Comment on above: Order Comment: No: D o not add to previous draw Nurse draw Performed By: #### 5 0608 #### [facility] [address] [place] [address], [place] WBC (Bld) [#/Vol] 14.84 10*3/uL High 4.00-10.60 [facility] Comment on above: Order Comment: No: D o not add to previous draw Nurse draw Performed By: #### 5 0608 #### [facility] [address] [place] [address], [facility] MAGNESIUM BLOODon 03-24-2021 Magnesium [Mass/Vol] 2.4 mg/dL Normal 1.9-2.7 [facility] Comment on above: Order Comment: evalu ate Atelectasis Performed By: #### 1 0070, 60293 ####[facility] [place] [address], [facility] POC GLUCOSE LABon 03-24-2021 Glucose [Mass/Vol] 168 mg/dL High 70-100 [facility] Comment on above: Performed By: #### 3 1595 #### [facility] [address] [place] [address], [place] Glucose [Mass/Vol] 119 mg/dL High 70-100 [facility] Comment on above: Performed By: #### 3 1595 #### [facility] [address] [place] [address], [place] Glucose [Mass/Vol] 132 mg/dL High 70-100 [facility] Comment on above: Performed By: #### 3 1595 #### [facility] [address] [facility]. [place], [place] [id number] [place] [address] Glucose [Mass/Vol] 104 mg/dL High 70-100 [facility] Comment on above: Performed By: #### 8 5499 #### [facility] [address] [place], [place] [address] [place] [address] PORTABLE CHEST 1 VIEWon 03-06 PORTABLE CHEST 1 VIEW [facility] Department of Radiology [address] [place] [id number] Patient Name: THIAGO SABILLON : 1950 Sex: F Age: Race: White Pt. Location: [place] [address] Patient Status: I Ordered Date: 03/24/2021 6:30:00 [...] appropriate Electronically signed: Zina Brenner. Transcribed by: [email or web address], User Resident: Electronically Signed by: ZINA BRENNER @ 03/25/2021 07:16 AM Normal [facility] Comment on above: Order Comment: Evalu ate for Pneumothorax PORTABLE CHEST 1 VIEW [facility] Department of Radiology [address] [place] [id number] Patient Name: THIAGO SABILLON DOB: 1950 Sex: F Age: Race: White Pt. Location: [place] [address] Patient Status: I Ordered Date: 03/24/2021 5:00:00 [...] atelectasis. Electronically signed: Roque May. Transcribed by: [email or web address], User Resident: Electronically Signed by: ROQUE MAY @ 03/24/2021 08:02 AM Normal [facility] Comment on above: Order Comment: The A ptima SARS-CoV-2 assay is a nucleic acid amplification test intended for the qualitative detection of RNA from SARS-CoV-2 isolated and purified from nasopharyngeal (NEUROLOGY PROFESSOR),oropharyngeal (OP), nasal swab, sputum, and bronchoalveolar lavage (BAL) specimens from patients with signs and symptoms of infection who are suspected of COVID-19. Results are for the identification of SARS-CoV-2 RNA. The SARS-CoV-2 RNA is generally detectable during the acute phase of infection. The Aptima SARS-CoV-2 Assay on the Vaccibody and [place] Fusion system is intended for use by laboratory personnel specifically instructed and trained in the operation of the [place] and [place] Fusion system. The Aptima SARS-CoV-2 assay is [...] (Bld) [Time] 33.6 s Normal 25.0-35.0 [facility] Comment on above: Order Comment: post [...] PURPOSE. Performed By: #### 8 [id number] #### [facility] [address] [place] [address], [facility] BASIC METABOLIC PANELon - Calcium [Mass/Vol] 8.3 mg/dL Low 8.6-10.3 [facility] Comment on above: Order Comment: post op day 1No: Do not add to previous draw Performed By: #### 3 0965 #### [facility] [address] [place] [id number], [facility] Chloride [Moles/Vol] 106 mmol/L Normal 98-107 [facility] Comment on above: Order Comment: post op day 1No: Do not add to previous draw Performed By: #### 3 0965 #### [facility] [address] [place] [address], [facility] CO2 [Moles/Vol] 26 mmol/L Normal 21-31 [facility] Comment on above: Order Comment: post op day 1No: Do not add to previous draw Performed By: #### 3 0965 #### [facility] [address] [place] [address], [facility] Creatinine [Mass/Vol] 0.45 mg/dL Low 0.60-1.20 [facility] Comment on above: Order Comment: post op day 1No: Do not add to previous draw Performed By: #### 3 0965 #### [facility] [address] [place] [address], [facility] GFR/1.73 sq M.predicted among blacks MDRD (S/P/Bld) [Vol rate/Area] mL/min/{1.73_m2} Normal >60 [facility] Comment on above: Order Comment: post op day 1No: Do not add to previous draw Performed By: #### 3 0965 #### [facility] [address] [place] [address], [place] GFR/1.73 sq M.predicted among non-blacks MDRD (S/P/Bld) [Vol rate/Area] mL/min/{1.73_m2} Normal >60 [facility] Comment on above: Order Comment: post op day 1No: Do not add to previous draw Performed By: #### 3 0965 #### [facility] [address] [place] [address], [place] Glucose [Mass/Vol] 122 mg/dL High 70-100 [facility] Comment on above: Order Comment: post op day 1No: Do not add to previous draw Performed By: #### 3 0965 #### [facility] [address] [place] [address], [place] Potassium [Moles/Vol] 4.2 mmol/L Normal 3.5-5.1 [facility] Comment on above: Order Comment: post op day 1No: Do not add to previous draw Performed By: #### 3 0965 #### [facility] [address] [place] [address], [place] Sodium [Moles/Vol] 140 mmol/L Normal 136-145 [facility] Comment on above: Order Comment: post op day 1No: Do not add to previous draw Performed By: #### 3 0965 #### [facility] [address] [place] [address], [place] Urea nitrogen [Mass/Vol] 25 mg/dL Normal 7-25 [facility] Comment on above: Order Comment: post op day 1No: Do not add to previous draw Performed By: #### 3 0965 #### [facility] [address] [place] [address], [place] CBC COMPLETE BLOOD COUNTon 0 03-23-2021 Erythrocyte distribution width (RBC) [Ratio] 13.4 % Normal 11.5-15.0 [facility] Comment on above: Order Comment: post op day 1No: Do not add to previous draw Performed By: #### 8 5499 #### [facility] [address] [place] [address], [place] Hematocrit (Bld) [Volume fraction] 31.2 % Low 36.0-45.0 [facility] Comment on above: Order Comment: post op day 1No: Do not add to previous draw Performed By: #### 8 5499 #### [facility] [address] [place] [address], [place] Hemoglobin (Bld) [Mass/Vol] 10.2 g/dL Low 12.0-15.0 [facility] Comment on above: Order Comment: post op day 1No: Do not add to previous draw Performed By: #### 8 5499 #### [facility] [address] [place] [address], [place] MCH (RBC) [Entitic mass] 31.2 pg Normal 27.0-33.0 [facility] Comment on above: Order Comment: post op day 1No: Do not add to previous draw Performed By: #### 8 5499 #### [facility] [address] [place] [address], [place] MCHC (RBC) [Mass/Vol] 32.7 g/dL Normal 32.0-35.0 [facility] Comment on above: Order Comment: post op day 1No: Do not add to previous draw Performed By: #### 8 5499 #### [facility] [address] [place] [address], [place] MCV (RBC) [Entitic vol] 95.4 fL Normal 82.0-98.0 [facility] Comment on above: Order Comment: post op day 1No: Do not add to previous draw Performed By: #### 8 5499 #### [facility] [address] [place] [address], [facility] Nucleated RBC/100 WBC (Bld) [Ratio] 0 % Normal 0-0 [facility] Comment on above: Order Comment: post op day 1No: Do not add to previous draw Performed By: #### 8 5499 #### [facility] [address] [place] [address], [facility] PLAT CNT 168 10*3/uL Normal 150-400 [facility] Comment on above: Order Comment: post op day 1No: Do not add to previous draw Performed By: #### 8 5499 #### [facility] [address] [place] [address], [facility] RBC (Bld) [#/Vol] 3.27 10*6/uL Low 3.80-5.00 [facility] Comment on above: Order Comment: post op day 1No: Do not add to previous draw Performed By: #### 8 5499 #### [facility] [address] [place] [id number], [facility] WBC (Bld) [#/Vol] 13.20 10*3/uL High 4.00-10.60 [facility] Comment on above: Order Comment: post op day 1No: Do not add to previous draw Performed By: #### 8 5499 #### [facility] [address] [place] [id number], [facility] LACTATE BLOODon 03-23-2021 Lactate [Moles/Vol] 1.0 mmol/L Normal 0.5-2.2 [facility] Comment on above: Order Comment: post op day 1No: Do not add to previous draw Performed By: #### 3 0965 #### [facility] [address] [place] [id number], [facility] MAGNESIUM BLOODon 03-23-2021 Magnesium [Mass/Vol] 2.1 mg/dL Normal 1.9-2.7 [facility] Comment on above: Order Comment: post op day 1No: Do not add to previous draw Performed By: #### 3 0965 #### [facility] [address] Operative Reporton Operative Report MR#: [id number] [facility] Pt. Name: Thiago Sabillon Room #: JESSICA [id number] Discharge Date: Birthdate: 1950 OPERATIVE REPORT DATE OF SURGERY: 03/22/2021 SURGEON: Chele Sanchez MD PREOPERATIVE DIAGNOSES: Severe mitral regurgitation, flail mitral valve posterior leaflet. POSTOPERATIVE DIAGNOSES: Severe mitral regurgitation, flail mitral valve posterior leaflet. OPERATIONS: 1. Minimally invasive video-assisted mitral valve repair with triangular resection of posterior scallop P2, #28 Physio ring annuloplasty. 2. Independent interpretation of transesophageal echocardiogram. BICYCLE SUBASSEMBLER: Juaquin. ANESTHESIA: General with endotracheal intubation. ANESTHESIOLOGIST: [...] P/Chele Sanchez MD Date Trans: 03/23/2021 12:26 A/mmo [id number] Normal [facility] POC GLUCOSE LABon 03-23-2021 Glucose [Mass/Vol] 125 mg/dL High 70-100 [facility] Comment on above: Performed By: #### 5 0608 #### [facility] [address] [place] [address], [place] Glucose [Mass/Vol] 147 mg/dL High 70-100 [facility] Comment on above: Performed By: #### 8 5499 #### [facility] [address] [place] [address], [place] Glucose [Mass/Vol] 128 mg/dL High 70-100 [facility] Comment on above: Performed By: #### 8 5499 #### [facility] [address] [place] [address], [place] Glucose [Mass/Vol] 102 mg/dL High 70-100 [facility] Comment on above: Performed By: #### 8 5499 #### [facility] [address] [place] [address], [place] Glucose [Mass/Vol] 115 mg/dL High 70-100 [facility] Comment on above: Performed By: #### 3 1595 #### [facility] [address] [place] [address], [place] Glucose [Mass/Vol] 91 mg/dL Normal 70-100 [facility] Comment on above: Performed By: #### 3 1595 #### [facility] [address] [place] [address], [place] Glucose [Mass/Vol] 113 mg/dL High 70-100 [facility] Comment on above: Performed By: #### 3 1595 #### [facility] [address] [place] [address], [place] PORTABLE CHEST 1 VIEWon 03-06 PORTABLE CHEST 1 VIEW [facility] Department of Radiology [address] [place] [id number] Patient Name: THIAGO SABILLON : 1950 Sex: F Age: Race: White Pt. Location: [place] [address] Patient Status: I Ordered Date: 03/23/2021 7:00:00 [...] base. Electronically signed: Vernell Mcclure. Transcribed by: [email or web address], User Resident: Electronically Signed by: VERNELL MCCLURE @ 03/23/2021 08:22 AM Normal [facility] Comment on above: Order Comment: The A ptima SARS-CoV-2 assay is a nucleic acid amplification test intended for the qualitative detection of RNA from SARS-CoV-2 isolated and purified from nasopharyngeal (NEUROLOGY PROFESSOR),oropharyngeal (OP), nasal swab, sputum, and bronchoalveolar lavage (BAL) specimens from patients with signs and symptoms of infection who are suspected of COVID-19. Results are for the identification of SARS-CoV-2 RNA. The SARS-CoV-2 RNA is generally detectable during the acute phase of infection. The Aptima SARS-CoV-2 Assay on the Vaccibody and Vaccibody Fusion system is intended for use by laboratory personnel specifically instructed and trained in the operation of the [place] and [place] Fusion system. The Aptima SARS-CoV-2 assay is [...] [Relative time] 1.19 {INR} High 0.91-1.16 [facility] Comment on above: Order Comment: post [...] 1995;[id number]. Performed By: #### 8 5499 #### [facility] [address] [place] [address], [place] PT Coag (PPP) [Time] 15.2 s High 12.3-14.8 [facility] Comment on above: Order Comment: post op day 1No: Do not add to previous draw Result Comment: ALL RESULTS MUST BE INTERPRETED WITH RESPECT TO BLOOD DRAWING ARTIFACT OR DILUTION ERROR OF ANTICOAGULANT AT THE TIME OF SAMPLING. Performed By: #### 8 5499 #### [facility] [address] [place] [address], [facility] *MRSA/MSSA DNA NASALon 03-22 *MRSA/MSSA DNA NASAL Clinical Report: (D ) Specimen: NASAL SWAB Collected: 03/22/2021 08:00 Status: Final Last Updated: 03/23/2021 17:18 MSSA DNA (Final) Negative MRSA DNA (Final) Negative Normal [facility] Comment on above: Performed By: #### 8 [id number] #### [facility] [address] [place] [address], [place] ACTIVATED CLOTTING TIMEon ACTIVATED CLOTTING TIME 110 sec Normal 82-152 [facility] Comment on above: Performed By: #### 3 1792 #### [facility] [address] [place] [address], [place] ACTIVATED CLOTTING TIME 429 sec High 82-152 [facility] Comment on above: Performed By: #### 8 5499 #### [facility] [address] [place] [address], [place] ACTIVATED CLOTTING TIME 571 sec High 82-152 [facility] Comment on above: Performed By: #### 3 1792 #### [facility] [address] [place] [address], [place] ACTIVATED CLOTTING TIME 390 sec High 82-152 [facility] Comment on above: Performed By: #### 3 1792 #### [facility] [address] [place] [address], [facility] ACTIVATED CLOTTING TIME 132 sec Normal 82-152 [facility] Comment on above: Performed By: #### 8 5499 #### [facility] [address] [place] [address], [facility] APTTon 03-22-2021 aPTT Coag (Bld) [Time] 29.5 s Normal 25.0-35.0 [facility] Comment on above: Order Comment: evalu [...] THIS PURPOSE. Performed By: #### 5 6101, [address] ####[facility] aPTT Coag (Bld) [Time] 32.2 s Normal 25.0-35.0 [facility] Comment on above: Result Comment: ALL [...] PURPOSE. Performed By: #### 8 5499 #### [facility] [address] [place] [address], [facility] BASIC METABOLIC PANELon 03-06 Calcium [Mass/Vol] 8.2 mg/dL Low 8.6-10.3 [facility] Comment on above: Performed By: #### 3 1046, [address] ####[facility] Chloride [Moles/Vol] 108 mmol/L High 98-107 [facility] Comment on above: Performed By: #### 3 1045, [id number] ####[facility] [place] [address], [facility] CO2 [Moles/Vol] 26 mmol/L Normal 21-31 [facility] Comment on above: Performed By: #### 3 1045, 96749 ####[facility] [place] [address], [facility] Creatinine [Mass/Vol] 0.45 mg/dL Low 0.60-1.20 [facility] Comment on above: Performed By: #### 3 1045, 82886 ####[facility] [place] [address], [facility] GFR/1.73 sq M.predicted among blacks MDRD (S/P/Bld) [Vol rate/Area] mL/min/{1.73_m2} Normal >60 [facility] Comment on above: Performed By: #### 3 1045, [id number] ####[facility] [place] [address], [facility] GFR/1.73 sq M.predicted among non-blacks MDRD (S/P/Bld) [Vol rate/Area] mL/min/{1.73_m2} Normal >60 [facility] Comment on above: Performed By: #### 3 1045, [id number] ####[facility] [place] [address], [facility] Glucose [Mass/Vol] 135 mg/dL High 70-100 [facility] Comment on above: Performed By: #### 3 1045, [id number] ####[facility] [place] [address], [facility] Potassium [Moles/Vol] 3.8 mmol/L Normal 3.5-5.1 [facility] Comment on above: Performed By: #### 3 1045, 39156 ####[facility] [place] [address], [place] Sodium [Moles/Vol] 141 mmol/L Normal 136-145 [facility] Comment on above: Performed By: #### 3 1046, 43830 ####[facility] [place] [address], [place] Urea nitrogen [Mass/Vol] 24 mg/dL Normal 7-25 [facility] Comment on above: Performed By: #### 3 1046, 79654 ####[facility] [place] [address], [place] Calcium [Mass/Vol] 8.4 mg/dL Low 8.6-10.3 [facility] Comment on above: Performed By: #### 8 5499 #### [facility] [address] [place] [address], [place] Chloride [Moles/Vol] 105 mmol/L Normal 98-107 [facility] Comment on above: Performed By: #### 8 5499 #### [facility] [address] [place] [address], [place] CO2 [Moles/Vol] 28 mmol/L Normal 21-31 [facility] Comment on above: Performed By: #### 8 5499 #### [facility] [address] [place] [address], [place] Creatinine [Mass/Vol] 0.53 mg/dL Low 0.60-1.20 [facility] Comment on above: Performed By: #### 8 5499 #### [facility] [address] [place] [address], [place] GFR/1.73 sq M.predicted among blacks MDRD (S/P/Bld) [Vol rate/Area] mL/min/{1.73_m2} Normal >60 [facility] Comment on above: Performed By: #### 8 5499 #### [facility] [address] [place] [address], [facility] GFR/1.73 sq M.predicted among non-blacks MDRD (S/P/Bld) [Vol rate/Area] mL/min/{1.73_m2} Normal >60 [facility] Comment on above: Performed By: #### 8 5499 #### [facility] [address] [place] [address], [facility] Glucose [Mass/Vol] 151 mg/dL High 70-100 [facility] Comment on above: Performed By: #### 8 5499 #### [facility] [address] [facility] [place] [address], [facility] Potassium [Moles/Vol] 3.9 mmol/L Normal 3.5-5.1 [facility] Comment on above: Performed By: #### 8 5499 #### [facility] [address] [facility]. [address] Sodium [Moles/Vol] 140 mmol/L Normal 136-145 [facility] Comment on above: Performed By: #### 8 5499 #### [facility] [address] [facility] [place] [place] [address], [facility] Urea nitrogen [Mass/Vol] 25 mg/dL Normal 7-25 [facility] Comment on above: Performed By: #### 8 5499 #### [facility] [address] [facility]. [address] CARDIAC MAGNESIUM BLOODon Magnesium [Mass/Vol] 2.5 mg/dL Normal 1.9-2.7 [facility] Comment on above: Performed By: #### 3 1046, 93421 ####[facility] CBC COMPLETE BLOOD COUNTon 0 03-22-2021 Erythrocyte distribution width (RBC) [Ratio] 13.0 % Normal 11.5-15.0 [facility] Comment on above: Order Comment: No: D o not add to previous draw Performed By: #### 8 5499 #### [facility] [address] [place] [address], [facility] Hematocrit (Bld) [Volume fraction] 32.1 % Low 36.0-45.0 [facility] Comment on above: Order Comment: No: D o not add to previous draw Performed By: #### 8 5499 #### [facility] [address] [place] [address], [facility] Hemoglobin (Bld) [Mass/Vol] 10.2 g/dL Low 12.0-15.0 [facility] Comment on above: Order Comment: No: D o not add to previous draw Performed By: #### 8 5499 #### [facility] [address] [place] [address], [facility] MCH (RBC) [Entitic mass] 30.4 pg Normal 27.0-33.0 [facility] Comment on above: Order Comment: No: D o not add to previous draw Performed By: #### 8 5499 #### [facility] [address] [facility] [place] [address], [facility] MCHC (RBC) [Mass/Vol] 31.8 g/dL Low 32.0-35.0 [facility] Comment on above: Order Comment: No: D o not add to previous draw Performed By: #### 8 5499 #### [facility] [address] [place] [address], [facility] MCV (RBC) [Entitic vol] 95.8 fL Normal 82.0-98.0 [facility] Comment on above: Order Comment: No: D o not add to previous draw Performed By: #### 8 5499 #### [facility] [address] [place] [address], [facility] Nucleated RBC/100 WBC (Bld) [Ratio] 0 % Normal 0-0 [facility] Comment on above: Order Comment: No: D o not add to previous draw Performed By: #### 8 5499 #### [facility] [address] [facility] [place] [address], [facility] PLAT CNT 155 10*3/uL Normal 150-400 [facility] Comment on above: Order Comment: No: D o not add to previous draw Performed By: #### 8 5499 #### [facility] [address] [facility] [place] [address], [facility] RBC (Bld) [#/Vol] 3.35 10*6/uL Low 3.80-5.00 [facility] Comment on above: Order Comment: No: D o not add to previous draw Performed By: #### 8 5499 #### [facility] [address] [facility] [place] [address], [facility] WBC (Bld) [#/Vol] 14.75 10*3/uL High 4.00-10.60 [facility] Comment on above: Order Comment: No: D o not add to previous draw Performed By: #### 8 5499 #### [facility] [address] [facility] [place] [address], [facility] CBC W/DIFFon 03-22-2021 ABS IMM GRANS 0.1 10*3/uL Normal 0.0-0.2 [facility] Comment on above: Performed By: #### 8 5499 #### [facility] [address] [facility] [place] [address], [facility] ABS NEUTROPHILS 10.5 10*3/uL High 1.6-7.6 [facility] Comment on above: Performed By: #### 8 5499 #### [facility] [address] [facility] [place] [address], [facility] Basophils (Bld) [#/Vol] 0.0 10*3/uL Normal 0.0-0.2 [facility] Comment on above: Performed By: #### 8 5499 #### [facility] [address] [facility] [place] [address], [facility] Basophils/100 WBC (Bld) 0.2 % Normal 0.0-1.0 [facility] Comment on above: Performed By: #### 8 5499 #### [facility] [address] [facility] [address], [facility] Eosinophils (Bld) [#/Vol] 0.1 10*3/uL Normal 0.0-0.5 [facility] Comment on above: Performed By: #### 8 5499 #### [facility] [address] [place] [address], [facility] Eosinophils/100 WBC (Bld) 0.5 % Normal 0.0-6.0 [facility] Comment on above: Performed By: #### 8 5499 #### [facility] [address] Erythrocyte distribution width (RBC) [Ratio] 13.0 % Normal 11.5-15.0 [facility] Comment on above: Performed By: #### 8 5499 #### [facility] [address] [place] [address], [facility] Hematocrit (Bld) [Volume fraction] 27.3 % Low 36.0-45.0 [facility] Comment on above: Performed By: #### 8 5499 #### [facility] [address] [place] [address], [facility] Hemoglobin (Bld) [Mass/Vol] 9.1 g/dL Low 12.0-15.0 [facility] Comment on above: Performed By: #### 8 5499 #### [facility] [address] [place] [address], [facility] IMMATURE GRANS 0.9 % Normal 0.0-1.0 [facility] Comment on above: Performed By: #### 8 5499 #### [facility] [address] [place] [address], [facility] Lymphocytes (Bld) [#/Vol] 1.7 10*3/uL Normal 1.2-4.0 [facility] Comment on above: Performed By: #### 8 5499 #### [facility] [address] [place] [address], [facility] Lymphocytes/100 WBC (Bld) 13.2 % Low 20.0-45.0 [facility] Comment on above: Performed By: #### 8 5499 #### [facility] [address] [facility] [place] [address], [facility] MCH (RBC) [Entitic mass] 31.0 pg Normal 27.0-33.0 [facility] Comment on above: Performed By: #### 8 5499 #### [facility] [address] [facility] [address] MCHC (RBC) [Mass/Vol] 33.3 g/dL Normal 32.0-35.0 [facility] Comment on above: Performed By: #### 8 5499 #### [facility] [address] [facility] [address], [facility] MCV (RBC) [Entitic vol] 92.9 fL Normal 82.0-98.0 [facility] Comment on above: Performed By: #### 8 5499 #### [facility] [address] [facility] [address], [facility] Monocytes (Bld) [#/Vol] 0.7 10*3/uL Normal 0.1-1.0 [facility] Comment on above: Performed By: #### 8 5499 #### [facility] [address] [facility] [place] [address], [facility] MONOS 5.4 % Normal 5.0-12.0 [facility] Comment on above: Performed By: #### 8 5499 #### [facility] [address] [place] [address], [facility] Neutrophils/100 WBC (Bld) 79.8 % High 40.0-72.0 [facility] Comment on above: Performed By: #### 8 5499 #### [facility] [address] [place] [address], [facility] Nucleated RBC/100 WBC (Bld) [Ratio] 0 % Normal 0-0 [facility] Comment on above: Performed By: #### 8 5499 #### [facility] [address] [place] [address], [facility] PLAT CNT 142 10*3/uL Low 150-400 [facility] Comment on above: Performed By: #### 8 5499 #### [facility] [address] [place] [address], [facility] RBC (Bld) [#/Vol] 2.94 10*6/uL Low 3.80-5.00 [facility] Comment on above: Performed By: #### 8 5499 #### [facility] [address] [place] [address], [facility] WBC (Bld) [#/Vol] 13.20 10*3/uL High 4.00-10.60 [facility] Comment on above: Performed By: #### 8 5499 #### [facility] [address] [place] [address], [facility] FIBRINOGENon 03-22-2021 FIBRINOGEN 242 mg/dL Normal 150-425 [facility] Comment on above: Performed By: #### 8 5499 #### [facility] [address] [place] [address], [facility] LACTATE BLOODon 03-22-2021 Lactate [Moles/Vol] 0.6 mmol/L Normal 0.5-2.2 [facility] Comment on above: Order Comment: No: D o not add to previous draw Performed By: #### 3 0965 #### [facility] [address] [place] [address], [place] Lactate [Moles/Vol] 0.9 mmol/L Normal 0.5-2.2 [facility] Comment on above: Performed By: #### 1 0054 ####[facility] [place] [address], [facility] MAGNESIUM BLOODon 03-22-2021 Magnesium [Mass/Vol] 3.7 mg/dL High 1.9-2.7 [facility] Comment on above: Performed By: #### 8 5499 #### [facility] [address] [place] [address], [place] PERFUSION BLOOD PANELon 03-06 BASE EXCESS 2.0 mmol/L Normal -2.0-3.0 [facility] Comment on above: Performed By: #### 8 5499 #### [facility] [address] [place] [address], [facility] Glucose [Mass/Vol] 158 mg/dL High 70-105 [facility] Comment on above: Performed By: #### 8 5499 #### [facility] [address] [place] [address], [facility] Hematocrit (Bld) [Volume fraction] 25 % Low 38-51 [facility] Comment on above: Performed By: #### 8 5499 #### [facility] [address] [place] [address], [place] Hemoglobin (Bld) [Mass/Vol] 8.5 g/dL Low 12.0-17.0 [facility] Comment on above: Performed By: #### 8 5499 #### [facility] [address] [place] [address], [place] IONIZED CALCIUM 1.30 mmol/L Normal 1.12-1.32 [facility] Comment on above: Performed By: #### 8 5499 #### [facility] [address] [place] [address], [facility] Oxygen (Bld) [Partial pressure] 173.0 mm[Hg] High 80.0-105.0 [facility] Comment on above: Performed By: #### 8 5499 #### [facility] [address] [place] [address], [facility] PCO2 39.5 mmHg Normal 35.0-45.0 [facility] Comment on above: Performed By: #### 8 5499 #### [facility] [address] [place] [address], [facility] pH (Bld) 7.44 [pH] Normal 7.35-7.45 [facility] Comment on above: Performed By: #### 8 5499 #### [facility] [address] [place] [address], [facility] Potassium [Moles/Vol] 4.0 mmol/L Normal 3.5-4.9 [facility] Comment on above: Performed By: #### 8 5499 #### [facility] [address] [place] [address], [facility] Sodium [Moles/Vol] 138 mmol/L Normal 138-146 [facility] Comment on above: Performed By: #### 8 5499 #### [facility] [address] [facility] [place] [address], [facility] BASE EXCESS 2.0 mmol/L Normal -2.0-3.0 [facility] Comment on above: Performed By: #### 3 179 #### [facility] [address] [place] [address], [facility] Glucose [Mass/Vol] 159 mg/dL High 70-105 [facility] Comment on above: Performed By: #### 3 179 #### [facility] [address] [place] [address], [place] Hematocrit (Bld) [Volume fraction] 21 % Low 38-51 [facility] Comment on above: Performed By: #### 3 179 #### [facility] [address] [place] [address], [facility] Hemoglobin (Bld) [Mass/Vol] 7.1 g/dL Low 12.0-17.0 [facility] Comment on above: Performed By: #### 3 1791 #### [facility] [address] [place] [address], [facility] IONIZED CALCIUM 1.29 mmol/L Normal 1.12-1.32 [facility] Comment on above: Performed By: #### 3 1791 #### [facility] [address] [place] [address], [facility] Oxygen (Bld) [Partial pressure] 175.0 mm[Hg] High 80.0-105.0 [facility] Comment on above: Performed By: #### 3 1791 #### [facility] [address] [place] [address], [facility] PCO2 38.9 mmHg Normal 35.0-45.0 [facility] Comment on above: Performed By: #### 3 1791 #### [facility] [address] [place] [address], [facility] pH (Bld) 7.44 [pH] Normal 7.35-7.45 [facility] Comment on above: Performed By: #### 3 1791 #### [facility] [address] [place] [address], [facility] Potassium [Moles/Vol] 4.0 mmol/L Normal 3.5-4.9 [facility] Comment on above: Performed By: #### 3 1791 #### [facility] [address] [place] [address], [place] Sodium [Moles/Vol] 138 mmol/L Normal 138-146 [facility] Comment on above: Performed By: #### 3 1791 #### [facility] [address] [place] [address], [facility] BASE EXCESS 4.0 mmol/L High -2.0-3.0 [facility] Comment on above: Performed By: #### 3 1791 #### [facility] [address] [place] [address], [facility] Glucose [Mass/Vol] 160 mg/dL High 70-105 [facility] Comment on above: Performed By: #### 3 1791 #### [facility] [address] [place] [address], [facility] Hematocrit (Bld) [Volume fraction] 26 % Low 38-51 [facility] Comment on above: Performed By: #### 3 1791 #### [facility] [address] [place] [address], [facility] Hemoglobin (Bld) [Mass/Vol] 8.8 g/dL Low 12.0-17.0 [facility] Comment on above: Performed By: #### 3 1791 #### [facility] [address] [place] [address], [facility] IONIZED CALCIUM 1.00 mmol/L Low 1.12-1.32 [facility] Comment on above: Performed By: #### 3 1791 #### [facility] [address] [place] [address], [facility] Oxygen (Bld) [Partial pressure] 411.0 mm[Hg] High 80.0-105.0 [facility] Comment on above: Performed By: #### 3 1791 #### [facility] [address] [place] [address], [facility] PCO2 54.4 mmHg High 35.0-45.0 [facility] Comment on above: Performed By: #### 3 1791 #### [facility] [address] [place] [address], [facility] pH (Bld) 7.36 [pH] Normal 7.35-7.45 [facility] Comment on above: Performed By: #### 3 1791 #### [facility] [address] [place] [address], [facility] Potassium [Moles/Vol] 4.3 mmol/L Normal 3.5-4.9 [facility] Comment on above: Performed By: #### 3 1791 #### [facility] [address] [place] [address], [place] Sodium [Moles/Vol] 137 mmol/L Low 138-146 [facility] Comment on above: Performed By: #### 3 1791 #### [facility] [address] [place] [address], [facility] BASE EXCESS 1.0 mmol/L Normal -2.0-3.0 [facility] Comment on above: Performed By: #### 3 1791 #### [facility] [address] [place] [address], [facility] Glucose [Mass/Vol] 121 mg/dL High 70-105 [facility] Comment on above: Performed By: #### 3 1791 #### [facility] [address] [place] [address], [facility] Hematocrit (Bld) [Volume fraction] 22 % Low 38-51 [facility] Comment on above: Performed By: #### 3 1791 #### [facility] [address] [place] [address], [facility] Hemoglobin (Bld) [Mass/Vol] 7.5 g/dL Low 12.0-17.0 [facility] Comment on above: Performed By: #### 3 1791 #### [facility] [address] [place] [address], [place] IONIZED CALCIUM 0.98 mmol/L Low 1.12-1.32 [facility] Comment on above: Performed By: #### 3 1791 #### [facility] [address] [place] [address], [facility] Oxygen (Bld) [Partial pressure] 40.0 mm[Hg] Normal [facility] Comment on above: Performed By: #### 3 1792 #### [facility] [address] [place] [address], [facility] PCO2 45.9 mmHg Normal 41.0-51.0 [facility] Comment on above: Performed By: #### 3 1792 #### [facility] [address] [place] [address], [facility] pH (Bld) 7.38 [pH] Normal 7.31-7.41 [facility] Comment on above: Performed By: #### 3 1791 #### [facility] [address] [place] [address], [facility] Potassium [Moles/Vol] 4.6 mmol/L Normal 3.5-4.9 [facility] Comment on above: Performed By: #### 3 1791 #### [facility] [address] [place] [address], [facility] Sodium [Moles/Vol] 137 mmol/L Low 138-146 [facility] Comment on above: Performed By: #### 3 1791 #### [facility] [address] [place] [address], [facility] BASE EXCESS 4.0 mmol/L High -2.0-3.0 [facility] Comment on above: Performed By: #### 8 5499 #### [facility] [address] [place] [address], [facility] Glucose [Mass/Vol] 107 mg/dL High 70-105 [facility] Comment on above: Performed By: #### 8 5499 #### [facility] [address] [place] [address], [facility] Hematocrit (Bld) [Volume fraction] 24 % Low 38-51 [facility] Comment on above: Performed By: #### 8 [id number] #### [facility] [address] [place] [address], [facility] Hemoglobin (Bld) [Mass/Vol] 8.2 g/dL Low 12.0-17.0 [facility] Comment on above: Performed By: #### 8 5499 #### [facility] [address] [place] [address], [facility] IONIZED CALCIUM 0.98 mmol/L Low 1.12-1.32 [facility] Comment on above: Performed By: #### [id number] #### [facility] [address] [place] [address], [facility] Oxygen (Bld) [Partial pressure] 424.0 mm[Hg] High 80.0-105.0 [facility] Comment on above: Performed By: #### [id number] #### [facility] [address] [address], [facility] PCO2 47.6 mmHg High 35.0-45.0 [facility] Comment on above: Performed By: #### [id number] #### [facility] [address] [facility] [place] [address], [facility] pH (Bld) 7.40 [pH] Normal 7.35-7.45 [facility] Comment on above: Performed By: #### [id number] #### [facility] [address] [place] [address], [facility] [facility] Potassium [Moles/Vol] 3.6 mmol/L Normal 3.5-4.9 [facility] Comment on above: Performed By: #### 8 [id number] #### [facility] [address] [place] [address], [facility] Sodium [Moles/Vol] 138 mmol/L Normal 138-146 [facility] Comment on above: Performed By: #### 8 [id number] #### [facility] [address] [place] [address], [facility] BASE EXCESS 3.0 mmol/L Normal -2.0-3.0 [facility] Comment on above: Performed By: #### 3 1791 #### [facility] [address] [place] [address], [facility] Glucose [Mass/Vol] 116 mg/dL High 70-105 [facility] Comment on above: Performed By: #### 3 1791 #### [facility] [address] [place] [address], [facility] Hematocrit (Bld) [Volume fraction] 31 % Low 38-51 [facility] Comment on above: Performed By: #### 3 1791 #### [facility] [address] [place] [address], [facility] Hemoglobin (Bld) [Mass/Vol] 10.5 g/dL Low 12.0-17.0 [facility] Comment on above: Performed By: #### 3 1791 #### [facility] [address] [place] [address], [facility] IONIZED CALCIUM 1.14 mmol/L Normal 1.12-1.32 [facility] Comment on above: Performed By: #### 3 1791 #### [facility] [address] [place] [address], [facility] Oxygen (Bld) [Partial pressure] 296.0 mm[Hg] High 80.0-105.0 [facility] Comment on above: Performed By: #### 3 1791 #### [facility] [address] [place] [address], [facility] PCO2 39.1 mmHg Normal 35.0-45.0 [facility] Comment on above: Performed By: #### 3 1791 #### [facility] [address] [place] [address], [facility] pH (Bld) 7.45 [pH] Normal 7.35-7.45 [facility] Comment on above: Performed By: #### 3 1792 #### [facility] [address] [place] [address], [place] Potassium [Moles/Vol] 3.5 mmol/L Normal 3.5-4.9 [facility] Comment on above: Performed By: #### 3 1792 #### [facility] [address] [place] [address], [place] Sodium [Moles/Vol] 139 mmol/L Normal 138-146 [facility] Comment on above: Performed By: #### 3 1792 #### [facility] [address] [place] [address], [place] BASE EXCESS 3.0 mmol/L Normal -2.0-3.0 [facility] Comment on above: Performed By: #### 3 0738 #### [facility] [address] [place] [address], [place] Glucose [Mass/Vol] 107 mg/dL High 70-105 [facility] Comment on above: Performed By: #### 3 0738 #### [facility] [address] [place] [address], [place] Hematocrit (Bld) [Volume fraction] 33 % Low 38-51 [facility] Comment on above: Performed By: #### 3 0738 #### [facility] [address] [place] [address], [place] Hemoglobin (Bld) [Mass/Vol] 11.2 g/dL Low 12.0-17.0 [facility] Comment on above: Performed By: #### 3 0738 #### [facility] [address] [place] [address], [place] IONIZED CALCIUM 1.16 mmol/L Normal 1.12-1.32 [facility] Comment on above: Performed By: #### 3 0738 #### [facility] [address] [place] [address], [place] Oxygen (Bld) [Partial pressure] 234.0 mm[Hg] High 80.0-105.0 [facility] Comment on above: Performed By: #### 3 0738 #### [facility] [address] [place] [address], [place] PCO2 41.9 mmHg Normal 35.0-45.0 [facility] Comment on above: Performed By: #### 3 0738 #### [facility] [address] [place] [address], [place] pH (Bld) 7.42 [pH] Normal 7.35-7.45 [facility] Comment on above: Performed By: #### 3 0738 #### [facility] [address] [place] [address], [place] Potassium [Moles/Vol] 3.8 mmol/L Normal 3.5-4.9 [facility] Comment on above: Performed By: #### 3 0738 #### [facility] [address] [place] [address], [place] Sodium [Moles/Vol] 138 mmol/L Normal 138-146 [facility] Comment on above: Performed By: #### 3 0738 #### [facility] [address] [place] [address], [place] POC GLUCOSE LABon 03-22-2021 Glucose [Mass/Vol] 117 mg/dL High 70-100 [facility] Comment on above: Performed By: #### 3 1595 #### [facility] [address] [place] [address], [place] Glucose [Mass/Vol] 110 mg/dL High 70-100 [facility] Comment on above: Performed By: #### 8 5499 #### [facility] [address] [place] [address], [place] Glucose [Mass/Vol] 143 mg/dL High 70-100 [facility] Comment on above: Performed By: #### 8 5499 #### [facility] [address] [facility] [place] [address], [facility] Glucose [Mass/Vol] 169 mg/dL High 70-100 [facility] Comment on above: Performed By: #### 5 0608 #### [facility] [address] [facility] [address], [facility] Glucose [Mass/Vol] 88 mg/dL Normal 70-100 [facility] Comment on above: Performed By: #### 3 1595 #### [facility] [address] [facility] [place] [address], [facility] PORTABLE CHEST 1 VIEWon 03-06 PORTABLE CHEST 1 VIEW [facility] Department of Radiology [address] [place] [id number] Patient Name: THIAGO SABILLON : 1950 Sex: F Age: Race: White Pt. Location: [id number] Patient Status: I Ordered Date: 03/22/2021 12:30:00 [...] appropriate Electronically signed: Zina Brenner. Transcribed by: [email or web address], User Resident: Electronically Signed by: ZINA BRENNER @ 03/22/2021 01:42 PM Normal [facility] Comment on above: Order Comment: Check Chest Tube Position, ON ARRIVAL TO CVU PROTHROMBIN TIMEon 1 INR Coag (PPP) [Relative time] 1.22 {INR} High 0.91-1.16 [facility] Comment on above: Order Comment: No: [...] 1995;108:231S-246S. Performed By: #### 8 5499 #### [facility] [address] [place] [address], [facility] PT Coag (PPP) [Time] 15.4 s High 12.3-14.8 [facility] Comment on above: Order Comment: No: D o not add to previous draw Result Comment: ALL RESULTS MUST BE INTERPRETED WITH RESPECT TO BLOOD DRAWING ARTIFACT OR DILUTION ERROR OF ANTICOAGULANT AT THE TIME OF SAMPLING. Performed By: #### 8 5499 #### [facility] [address] [facility] [address], [facility] INR Coag (PPP) [Relative time] 1.48 {INR} High 0.91-1.16 [facility] Comment on above: Result Comment: ACCC [...] 1995;108:231S-246S. Performed By: #### 8 5499 #### [facility] [address] [place] [id number], [place] PT Coag (PPP) [Time] 18.0 s High 12.3-14.8 [facility] Comment on above: Result Comment: ALL RESULTS MUST BE INTERPRETED WITH RESPECT TO BLOOD DRAWING ARTIFACT OR DILUTION ERROR OF ANTICOAGULANT AT THE TIME OF SAMPLING. Performed By: #### 8 5499 #### [facility] [address] Pulmonary Functionon 021 Pulmonary Function MR #: [id number] [facility] PT. Name: Thiago Sabillon Date: 03/20/2021 [...] Begum MD Date Trans: 03/22/2021 01:57 P/ [id number] cc: Balta Jane M.D. [address] [place] [id number] Normal [facility] RBC'S 2 UNITSon 03-22-2021 CROSSMATCH INTERP 1 COMP Normal [facility] Comment on above: Performed By: #### 8 5499 #### [facility] [address] [place] [address], [place] CROSSMATCH INTERP 2 COMP Normal [facility] Comment on above: Performed By: #### 8 5499 #### [facility] [address] [place] [address], [place] PRODUCT CODE 1 E0336 Normal [facility] Comment on above: Performed By: #### 8 5499 #### [facility] [address] [place] [address], [place] PRODUCT CODE 2 E0336 Normal [facility] Comment on above: Performed By: #### 8 5499 #### [facility] [address] [place] [address], [facility] PRODUCT STATUS 1 RE Normal [facility] Comment on above: Result Comment: Resu lt changed by IF on 03/22/2021 09:49. The previous value was XM. Result changed by IF on 03/22/2021 12:46. The previous value was IS. Result changed by IF on 03/25/2021 06:46. The previous value was XM. Performed By: #### 8 [id number] #### [facility] [address] [place] [address], [facility] PRODUCT STATUS 2 RE Normal [facility] Comment on above: Result Comment: Resu lt changed by IF on 03/22/2021 09:49. The previous value was XM. Result changed by IF on 03/22/2021 12:46. The previous value was IS. Result changed by IF on 03/25/2021 06:46. The previous value was XM. Performed By: #### 8 5499 #### [facility] [address] [place] [address], [place] UNIT ABO 1 A Normal [facility] Comment on above: Performed By: #### 8 5499 #### [facility] [address] [place] [address], [place] UNIT ABO 2 A Normal [facility] Comment on above: Performed By: #### 8 5499 #### [facility] [address] [place] [address], [facility] UNIT ID 1 [id number] Normal [facility] Comment on above: Performed By: #### 8 5499 #### [facility] [address] [place] [address], [facility] UNIT ID 2 [id number] Normal [facility] Comment on above: Performed By: #### 8 5499 #### [facility] [address] [place] [address], [facility] UNIT RH 1 Positive Normal [facility] Comment on above: Performed By: #### 8 5499 #### [facility] [address] [place] [address], [facility] UNIT RH 2 Positive Normal [facility] Comment on above: Performed By: #### 8 5499 #### [facility] [address] [facility] [place] [id number] [place] [address] *MRSA/MSSA DNA NASALon 03-20 *MRSA/MSSA DNA NASAL Clinical Report: (D ) Specimen: NASAL SWAB Collected: 03/20/2021 13:16 Status: Final Last Updated: 03/21/2021 15:36 MSSA DNA (Final) Negative MRSA DNA (Final) Negative Normal [facility] Comment on above: Performed By: #### 3 1595 #### [facility] [address] [facility] [address] *SARS-CoV-2 COVID-19on 03-20 SARS-CoV-2 (COVID-19) RNA GÓMEZ+probe Ql (Unsp spec) Not detected Normal Not Detected [facility] Comment on above: Order Comment: The A ptima SARS-CoV-2 assay is a nucleic acid amplification test intended for the qualitative detection of RNA from SARS-CoV-2 isolated and purified from nasopharyngeal (NEUROLOGY PROFESSOR),oropharyngeal (OP), nasal swab, sputum, and bronchoalveolar lavage (BAL) specimens from patients with signs and symptoms of infection who are suspected of COVID-19. Results are for the identification of SARS-CoV-2 RNA. The SARS-CoV-2 RNA is generally detectable during the acute phase of infection. The Aptima SARS-CoV-2 Assay on the [place] [employer] [place] system is intended for use by laboratory personnel specifically instructed and trained in the operation of the [place] [employer] [place] [employer] system. The Aptima SARS-CoV-2 assay is [...] information. Performed By: #### 3 1792 #### [facility] [address] APTTon 03-20-2021 aPTT Coag (Bld) [Time] 34.1 s Normal 25.0-35.0 [facility] Comment on above: Result Comment: ALL [...] PURPOSE. Performed By: #### 8 [id number] #### [facility] [address] [place] [address], [facility] ARTERIAL BLOOD GAS W/COOXon 03-20-2021 BASE EXCESS 5 mmol/L High -2-3 [facility] Comment on above: Performed By: #### 8 5499 #### [facility] [address] COHB 0.8 % Normal 0.0-1.5 [facility] Comment on above: Performed By: #### 8 5499 #### [facility] [address] [place] [address], [place] FIO2 21 % Normal [facility] Comment on above: Performed By: #### 8 5499 #### [facility] [address] [place] [address], [place] HCO3 (Bld) [Moles/Vol] 28 mmol/L Normal 21-28 [facility] Comment on above: Performed By: #### 8 5499 #### [facility] [address] [place] [address], [place] METHB 0.8 % Normal 0.0-1.5 [facility] Comment on above: Performed By: #### 8 5499 #### [facility] [address] [place] [address], [place] Oxygen (Bld) [Partial pressure] 116 mm[Hg] Critically high 83-108 [facility] Comment on above: Performed By: #### 8 5499 #### [facility] [address] [place] [address], [place] Oxygen saturation in Blood 97.0 % Normal 94.0-97.0 [facility] Comment on above: Performed By: #### 8 5499 #### [facility] [address] [place] [address], [place] PCO2 36 mmHg Normal 35-45 [facility] Comment on above: Performed By: #### 8 5499 #### [facility] [address] [place] [address], [place] pH (Bld) 7.50 [pH] High 7.35-7.45 [facility] Comment on above: Performed By: #### 8 5499 #### [facility] [address] [place] [address], [place] THB 13.1 g/dL Normal 12.0-16.3 [facility] Comment on above: Performed By: #### 8 5499 #### [facility] [address] [facility] [place] [address], [facility] CBC W/DIFFon 03-20-2021 ABS IMM GRANS 0.0 10*3/uL Normal 0.0-0.2 [facility] Comment on above: Performed By: #### 8 5499 #### [facility] [address] [facility] [place] [address], [facility] ABS NEUTROPHILS 4.5 10*3/uL Normal 1.6-7.6 [facility] Comment on above: Performed By: #### 8 5499 #### [facility] [address] [facility] [place] [address], [facility] Basophils (Bld) [#/Vol] 0.0 10*3/uL Normal 0.0-0.2 [facility] Comment on above: Performed By: #### 8 5499 #### [facility] [address] [facility] [place] [address], [facility] Basophils/100 WBC (Bld) 0.4 % Normal 0.0-1.0 [facility] Comment on above: Performed By: #### 8 5499 #### [facility] [address] [facility] [address], [facility] Eosinophils (Bld) [#/Vol] 0.1 10*3/uL Normal 0.0-0.5 [facility] Comment on above: Performed By: #### 8 5499 #### [facility] [address] [facility] [place] [address], [facility] Eosinophils/100 WBC (Bld) 1.2 % Normal 0.0-6.0 [facility] Comment on above: Performed By: #### 8 5499 #### [facility] [address] [facility] [place] [id number], [facility] Erythrocyte distribution width (RBC) [Ratio] 13.1 % Normal 11.5-15.0 [facility] Comment on above: Performed By: #### 8 5499 #### [facility] [address] [facility] [address] Hematocrit (Bld) [Volume fraction] 42.7 % Normal 36.0-45.0 [facility] Comment on above: Performed By: #### 8 5499 #### [facility] [address] [facility] [address] Hemoglobin (Bld) [Mass/Vol] 14.0 g/dL Normal 12.0-15.0 [facility] Comment on above: Performed By: #### 8 5499 #### [facility] [address] [facility] [place] [place] [address], [facility] IMMATURE GRANS 0.1 % Normal 0.0-1.0 [facility] Comment on above: Performed By: #### 8 5499 #### [facility] [address] [facility]. [address] Lymphocytes (Bld) [#/Vol] 1.7 10*3/uL Normal 1.2-4.0 [facility] Comment on above: Performed By: #### 8 5499 #### [facility] [address] [facility] Lymphocytes/100 WBC (Bld) 24.1 % Normal 20.0-45.0 [facility] Comment on above: Performed By: #### 8 5499 #### [facility] [address] [facility] [address] MCH (RBC) [Entitic mass] 30.7 pg Normal 27.0-33.0 [facility] Comment on above: Performed By: #### 8 5499 #### [facility] [address] [place] [address], [facility] MCHC (RBC) [Mass/Vol] 32.8 g/dL Normal 32.0-35.0 [facility] Comment on above: Performed By: #### 8 5499 #### [facility] [address] [facility] [place] [address], [facility] MCV (RBC) [Entitic vol] 93.6 fL Normal 82.0-98.0 [facility] Comment on above: Performed By: #### 8 5499 #### [facility] [address] [facility] [place] [place] [address], [facility] Monocytes (Bld) [#/Vol] 0.7 10*3/uL Normal 0.1-1.0 [facility] Comment on above: Performed By: #### 8 5499 #### [facility] [address] [facility]. [address] MONOS 9.8 % Normal 5.0-12.0 [facility] Comment on above: Performed By: #### 8 5499 #### [facility] [address] Neutrophils/100 WBC (Bld) 64.4 % Normal 40.0-72.0 [facility] Comment on above: Performed By: #### 8 5499 #### [facility] [address] Nucleated RBC/100 WBC (Bld) [Ratio] 0 % Normal 0-0 [facility] Comment on above: Performed By: #### 8 [id number] #### [facility] [address] [facility] [place] [place] [address], [facility] PLAT CNT 289 10*3/uL Normal 150-400 [facility] Comment on above: Performed By: #### 8 5499 #### [facility] [address] [facility] [place] [place] [address], [facility] RBC (Bld) [#/Vol] 4.56 10*6/uL Normal 3.80-5.00 [facility] Comment on above: Performed By: #### 8 5499 #### [facility] [address] WBC (Bld) [#/Vol] 6.93 10*3/uL Normal 4.00-10.60 [facility] Comment on above: Performed By: #### 8 5499 #### [address] CHEST AND LATERALon 03-20-20 CHEST AND LATERAL [facility] Department of Radiology [address] [place] [address] [phone] Patient Name: THIAGO SABILLON : 1950 Sex: [...] above Electronically signed: Savannah Eubanks. Transcribed by: [email or web address], User Resident: Electronically Signed by: SAVANNAH EUBANKS @ 03/21/2021 10:05 AM Normal [facility] Comment on above: Order Comment: evalu ate COMP METABOLIC PANELon 03-20 Albumin [Mass/Vol] 4.7 g/dL Normal 3.5-5.7 [facility] Comment on above: Performed By: #### 3 0965 #### [facility] [address] [place] [address], [facility] ALKALINE PHOSPH 84 IU/L Normal 34-104 [facility] Comment on above: Performed By: #### 3 0965 #### [facility] [address] [facility] [place] [address], [facility] ALT [Catalytic activity/Vol] 20 U/L Normal 7-52 [facility] Comment on above: Performed By: #### 3 0965 #### [facility] [address] [place] [address], [facility] AST [Catalytic activity/Vol] 16 U/L Normal 13-39 [facility] Comment on above: Performed By: #### 3 0965 #### [facility] [address] [facility] [address], [facility] Bilirubin [Mass/Vol] 0.5 mg/dL Normal 0.3-1.0 [facility] Comment on above: Performed By: #### 3 0965 #### [facility] [address] [facility] [place] [address], [facility] Calcium [Mass/Vol] 9.7 mg/dL Normal 8.6-10.3 [facility] Comment on above: Performed By: #### 3 0965 #### [facility] [address] [facility] [place] [address], [facility] Chloride [Moles/Vol] 100 mmol/L Normal 98-107 [facility] Comment on above: Performed By: #### 3 0965 #### [facility] [address] [place] [address], [place] CO2 [Moles/Vol] 33 mmol/L High 21-31 [facility] Comment on above: Performed By: #### 3 0965 #### [facility] [address] [place] [address], [facility] Creatinine [Mass/Vol] 0.64 mg/dL Normal 0.60-1.20 [facility] Comment on above: Performed By: #### 3 0965 #### [facility] [address] [facility] [place] [address], [place] GFR/1.73 sq M.predicted among blacks MDRD (S/P/Bld) [Vol rate/Area] mL/min/{1.73_m2} Normal >60 [facility] Comment on above: Performed By: #### 3 0965 #### [facility] [address] [facility] [place] [address], [place] GFR/1.73 sq M.predicted among non-blacks MDRD (S/P/Bld) [Vol rate/Area] mL/min/{1.73_m2} Normal >60 [facility] Comment on above: Performed By: #### 3 0965 #### [facility] [address] [place] [address], [place] Glucose [Mass/Vol] 87 mg/dL Normal 70-100 [facility] Comment on above: Performed By: #### 3 0965 #### [facility] [address] [place] [address], [place] Potassium [Moles/Vol] 4.3 mmol/L Normal 3.5-5.1 [facility] Comment on above: Performed By: #### 3 0965 #### [facility] [address] [facility] [place] [address], [facility] Protein [Mass/Vol] 7.8 g/dL Normal 6.0-8.3 [facility] Comment on above: Performed By: #### 3 0965 #### [facility] [address] [facility] [place] [address], [facility] Sodium [Moles/Vol] 137 mmol/L Normal 136-145 [facility] Comment on above: Performed By: #### 3 0965 #### [facility] [address] [place] [address], [facility] Urea nitrogen [Mass/Vol] 26 mg/dL High 7-25 [facility] Comment on above: Performed By: #### 3 0965 #### [facility] [address] [place] [address], [facility] CT CHEST WO CONTRASTon 03-20 CT CHEST WO CONTRAST [facility] Department of Radiology [address] [place] [address] [phone] Patient Name: THIAGO SABILLON : 1950 Sex: F Age: Race: White Pt. Location: Patient Status: D Ordered Date: 03/14/2021 9:10:00 AM Completed Date: 03/20/2021 12:38 PM Requesting Provider: CHELE SANCHEZ Attending Provider: TANA BARNETT Report Copy To: KALLIE CHASE Signs & Symptoms: I34.0 Nonrheumatic mitral (valve) insufficiency I10 History: [place] time ok per lee in [place] Comments: [...] examination. Electronically signed: Omkar Crowder. Transcribed by: [email or web address], User Resident: Electronically Signed by: OMKAR CROWDER @ 03/21/2021 01:39 PM Normal [facility] Comment on above: Order Comment: for viola lemon on 03/22/2021 , Patient Age: 70 years old HEMOGLOBIN A1Con 03-20-2021 Glucose [Moles/Vol] 111 mmol/L Normal [facility] Comment on above: Performed By: #### 3 [id number] #### [facility] [address] [employer] [address] HbA1c (Bld) [Mass fraction] 5.5 % Normal 4.0-6.0 [facility] Comment on above: Performed By: #### 3 [id number] #### [facility] [address] [facility]. [address] PROTHROMBIN TIMEon INR Coag (PPP) [Relative time] 0.96 {INR} Normal 0.91-1.16 [facility] Comment on above: Result Comment: ACCC [...] 1995;[id number]. Performed By: #### 8 [id number] #### [facility] [address] [place] [address], [facility] PT Coag (PPP) [Time] 12.8 s Normal 12.3-14.8 [facility] Comment on above: Result Comment: ALL RESULTS MUST BE INTERPRETED WITH RESPECT TO BLOOD DRAWING ARTIFACT OR DILUTION ERROR OF ANTICOAGULANT AT THE TIME OF SAMPLING. Performed By: #### 8 [id number] #### [facility] [address] [place] [address], [place] TYPE AND CROSSMATCHon 2020 ABO INTERPRETATION A Normal [facility] Comment on above: Performed By: #### 3 0738 #### [facility] [address] [place] [address], [place] RH INTERPRETATION Positive Normal [facility] Comment on above: Performed By: #### 3 0738 #### [facility] [address] [place] [address], [place] URINALYSIS REFLEXon 03-20-20 21 Appearance (U) CLEAR Normal CLEAR [facility] Comment on above: Performed By: #### 3 0965 #### [facility] [address] [place] [address], [place] Bilirubin Ql (U) Negative Normal NEGATIVE [facility] Comment on above: Performed By: #### 3 0965 #### [facility] [address] [place] [address], [place] Color (U) YELLOW Normal YELLOW [facility] Comment on above: Performed By: #### 3 0965 #### [facility] [address] [place] [address], [place] EPIS NONE SEEN Normal FEW,OCC,NO NE SEEN [facility] Comment on above: Performed By: #### 3 0965 #### [facility] [address] [place] [address], [place] Glucose Ql (U) Negative Normal NEGATIVE [facility] Comment on above: Performed By: #### 3 0965 #### [facility] [address] [place] [address], [place] Hemoglobin Ql (U) Negative Normal NEGATIVE [facility] Comment on above: Performed By: #### 3 0965 #### [facility] [address] [place] [address], [facility] KETONE Negative Normal NEGATIVE [facility] Comment on above: Performed By: #### 3 0965 #### [facility] [address] [place] [address], [facility] LEUK RAHUL Negative Normal NEGATIVE [facility] Comment on above: Performed By: #### 3 0965 #### [facility] [address] [place] [address], [place] Nitrite Ql (U) Negative Normal NEGATIVE [facility] Comment on above: Performed By: #### 3 0965 #### [facility] [address] [place] [address], [facility] pH (U) 7.0 [pH] Normal 5.0-8.0 [facility] Comment on above: Performed By: #### 3 0965 #### [facility] [address] [place] [address], [facility] Protein Ql (U) Negative Normal NEGATIVE [facility] Comment on above: Performed By: #### 3 0965 #### [facility] [address] [place] [address], [facility] RBC 0-2 Abnormal NONE SEEN [facility] Comment on above: Performed By: #### 3 0965 #### [facility] [address] [place] [address], [place] SPEC GRAV 1.020 Normal 1.015-1.02 0 [facility] Comment on above: Performed By: #### 3 0965 #### [facility] [address] [place] [address], [facility] WBC UA 0-2 Abnormal NONE SEEN [facility] Comment on above: Performed By: #### 3 0965 #### [facility] [address] [place] [address], [facility] Cardiovascular Lab Reporton 03-08-2021 Cardiovascular Lab Report [facility] Patient Name: Thiago Sabillon [facility] MR #: [id number] Physician: Balta Jane, Department of M.D. Medicine Service Date: 03/08/2021 Division of Birthdate: 1950 Cardiology Room #: Adult Cardiovascular Services [facility] [address] [place], [place] [address] Cardiovascular Laboratory Report FINAL IMPRESSIONS: 1. Fvoq-tx-zejxnxwt coronary artery disease. 2. Severe mitral regurgitation by transesophageal echocardiography. 3. Normal right-sided heart pressures and normal pulmonary capillary wedge pressure. 4. Normal cardiac output/cardiac index. 5. Bner-pe-yhraullx systemic hypertension. 6. Peripheral arterial disease evidenced [...] femoral vein and artery was obtained. A 6-Setswana x 11 cm sheath was placed in [...] was elected to conclude the procedure. A 6-Setswana MynxGrip closure device was deployed; however, this [...] A Balta Jane M.D. Date Dict: 03/08/2021/11:49 Denise/Balta Jane M.D. Date Trans: 03/08/2021 02:45 P/nader [id number] cc: Balta Jane M.D. [address] [place] [address] [facility] Vital Signs Date Time Vital Sign Value Performing Clinician Facility 11-29-2024 08:52-0500 Body height 162.6 cm Braxton Canasmichael NEUROLOGY PROFESSOR Work Phone: [facility] 11-29-2024 08:52-0500 Body mass index (BMI) [Ratio] 19.57 kg/m2 Braxton Singletaryperimichael NEUROLOGY PROFESSOR Work Phone: [facility] 11-29-2024 08:52-0500 Body weight 51.71 kg Braxton Jacobsen NEUROLOGY PROFESSOR Work Phone: [facility] 11-29-2024 08:52-0500 Diastolic blood pressure 70 mm[Hg] Braxton Jacobsen NEUROLOGY PROFESSOR Work Phone: [facility] 11-29-2024 08:52-0500 Systolic blood pressure 126 mm[Hg] Braxton Singletaryperimcihael NEUROLOGY PROFESSOR Work Phone: [facility] 09-14-2024 10:05-0500 Body height 161.9 cm Thaddeus Mcclendon DO Work Phone: [facility] 09-14-2024 10:05-0500 Body mass index (BMI) [Ratio] 19.03 kg/m2 Thaddeus Mcclendon DO Work Phone: [facility] 09-14-2024 10:05-0500 Body weight 49.9 kg Thaddeus Mcclendon DO Work Phone: [facility] 09-14-2024 10:05-0500 Diastolic blood pressure 68 mm[Hg] Thaddeus Mcclendon DO Work Phone: [facility] 09-14-2024 10:05-0500 Systolic blood pressure 118 mm[Hg] Thaddeus Mcclendon DO Work Phone: [facility] 08-09-2024 13:28-0500 Diastolic blood pressure 60 mm[Hg] Yandy Hector MD Work Phone: [facility] 08-09-2024 13:28-0500 Heart rate 66 /min Yandy Hector MD Work Phone: [facility] 08-09-2024 13:28-0500 Systolic blood pressure 98 mm[Hg] Yandy Hector MD Work Phone: [facility] 08-09-2024 [id number] Body height 163.8 cm Yandy Hector MD Work Phone: [facility] 08-09-2024 13:11-0500 Body mass index (BMI) [Ratio] 19.2 kg/m2 Yandy Hector MD Work Phone: [facility] 08-09-2024 [id number] Body weight 51.53 kg Yandy Hector MD Work Phone: [facility] 07-22-2024 11:48-0400 Body height 162.56 cm MD Kallie Chase Work Phone: [facility] 07-22-2024 11:48-0400 Body mass index (BMI) [Ratio] 19.5 kg/m2 MD Kallie Chase Work Phone: [facility] 07-22-2024 11:48-0400 Body weight 51.82 kg MD Kallie Chase Work Phone: [facility] 07-22-2024 11:48-0400 Diastolic blood pressure 67 mm[Hg] MD Kallie Chase Work Phone: [facility] 07-22-2024 11:48-0400 Heart rate 52 /min MD Kallie Chase Work Phone: [facility] 07-22-2024 11:48-0400 Systolic blood pressure 114 mm[Hg] MD Kallie Chase Work Phone: [facility] 07-07-2024 11:11-0400 Body temperature 97.7 [degF] MD Kallie Chase Work Phone: [facility] 07-07-2024 11:11-0400 Diastolic blood pressure 63 mm[Hg] MD Kallie Chase Work Phone: [facility] 07-07-2024 11:11-0400 Heart rate 67 /min MD Kallie Chase Work Phone: [facility] 07-07-2024 11:11-0400 Respiratory rate 16 /min MD Klalie Chase Work Phone: [facility] 07-07-2024 11:11-0400 SaO2% (BldA) [Mass fraction] 99 % MD Kallie Chase Work Phone: [facility] 07-07-2024 11:11-0400 Systolic blood pressure 108 mm[Hg] MD Kallie Chase Work Phone: [facility] 07-07-2024 02:27-0400 Body height 162.56 cm MD Kallie Chase Work Phone: [facility] 07-07-2024 02:27-0400 Body weight 54.9 kg MD Kallie Chase Work Phone: [facility] 07-07-2024 02:04-0400 Body temperature 98.2 [degF] MD Kallie Chase Work Phone: [facility] 07-07-2024 02:04-0400 Diastolic blood pressure 51 mm[Hg] MD Kallie Chase Work Phone: [facility] 07-07-2024 02:04-0400 Heart rate 61 /min MD Kallie Chase Work Phone: [facility] 07-07-2024 02:04-0400 Respiratory rate 19 /min MD Kallie Chase Work Phone: [facility] 07-07-2024 02:04-0400 SaO2% (BldA) [Mass fraction] 99 % MD Kallie Chase Work Phone: [facility] 07-07-2024 02:04-0400 Systolic blood pressure 107 mm[Hg] MD Kallie Chase Work Phone: [facility] 07-06-2024 15:44-0400 Body height 162.56 cm MD Kallie Chase Work Phone: [facility] 07-06-2024 15:44-0400 Body weight 51.9 kg MD Kallie Chase Work Phone: [facility] 07-05-2024 17:45-0400 Diastolic blood pressure 82 mm[Hg] MD Kallie Chase Work Phone: [facility] 07-05-2024 17:45-0400 Heart rate 54 /min MD Kallie Chase Work Phone: [facility] 07-05-2024 17:45-0400 Respiratory rate 16 /min MD Kallie Chase Work Phone: [facility] 07-05-2024 17:45-0400 SaO2% (BldA) [Mass fraction] 100 % MD Kallie Chase Work Phone: [facility] 07-05-2024 17:45-0400 Systolic blood pressure 138 mm[Hg] MD Kallie Chase Work Phone: [facility] 07-05-2024 16:13-0400 Body temperature 97.1 [degF] MD Kallie Chase Work Phone: [facility] 07-05-2024 16:13-0400 Inhaled oxygen flow rate 8 L/min MD Kallie Chase Work Phone: [facility] 07-05-2024 12:50-0400 Body height 162.56 cm MD Kallie Chase Work Phone: [facility] 07-05-2024 12:50-0400 Body weight 49.2 kg MD Kallie Chase Work Phone: [facility] 06-24-2024 14:55-0400 Body height 162.56 cm MD Kallie Chase Work Phone: [facility] 06-24-2024 14:55-0400 Body mass index (BMI) [Ratio] 18.3 kg/m2 MD Kallie Chase Work Phone: [facility] 06-24-2024 14:55-0400 Body weight 48.53 kg MD Kallie Chase Work Phone: [facility] 05-14-2024 08:290400 Body height 162.56 cm [facility] 05-14-2024 08:29-0400 Body mass index (BMI) [Ratio] 18.3 kg/m2 [facility] 05-14-2024 08:29-0400 Body weight 48.53 kg [facility] 05-14-2024 08:29-0400 Diastolic blood pressure 58 mm[Hg] [facility] 05-14-2024 08:29-0400 Heart rate 43 /min [facility] 05-14-2024 08:29-0400 Systolic blood pressure 99 mm[Hg] [facility] 04-02-2024 11:28-0400 Body height 162.56 cm MD Kallie Chase Work Phone: [facility] 04-02-2024 11:28-0400 Body mass index (BMI) [Ratio] 18.3 kg/m2 MD Kallie Chase Work Phone: [facility] 04-02-2024 11:28-0400 Body temperature 98.7 [degF] MD Kallie Chase Work Phone: [facility] 04-02-2024 11:28-0400 Body weight 48.53 kg MD Kallie Chase Work Phone: [facility] 04-02-2024 11:28-0400 Diastolic blood pressure 71 mm[Hg] MD Kallie Chase Work Phone: [facility] 04-02-2024 11:28-0400 Heart rate 62 /min MD Kallie Chase Work Phone: [facility] 04-02-2024 11:28-0400 SaO2% (BldA) [Mass fraction] 97 % MD Kallie Chase Work Phone: [facility] 04-02-2024 11:28-0400 Systolic blood pressure 115 mm[Hg] MD Kallie Chase Work Phone: [facility] 01-16-2024 10:14-0400 Body height 162.56 cm MD Kallie Chase Work Phone: [facility] 01-16-2024 10:14-0400 Body mass index (BMI) [Ratio] 18.8 kg/m2 MD Kallie Chase Work Phone: [facility] 01-16-2024 10:140400 Body weight 49.89 kg MD Kallie Chase Work Phone: [facility] 12-17-2023 09:06-0400 Body height 162.56 cm [facility] 12-17-2023 09:06-0400 Body mass index (BMI) [Ratio] 18.4 kg/m2 [facility] 12-17-2023 09:06-0400 Body weight 48.76 kg [facility] 12-17-2023 09:06-0400 Diastolic blood pressure 67 mm[Hg] [facility] 12-17-2023 09:06-0400 Heart rate 69 /min [facility] 12-17-2023 09:06-0400 Systolic blood pressure 102 mm[Hg] [facility] 10-03-2023 12:55-0500 Body height 162.56 cm Jennifer Mccarthy Other [facility] 10-03-2023 12:55-0500 Body mass index (BMI) [Ratio] 18.54 kg/m2 Jennifer Mccarthy Other [facility] Other 10-03-2023 12:55-0500 Body temperature 97.1 [degF] Jennifer Mccarthy Other [facility] Other 10-03-2023 12:55-0500 Body weight 48.99 kg Jennifer Mccarthy Other [facility] Other 10-03-2023 12:55-0500 Body weight 48.98 kg [facility] 10-03-2023 12:55-0500 Diastolic blood pressure 90 mm[Hg] Jennifer Mccarthy Other [facility] 10-03-2023 12:55-0500 SaO2% (BldA) [Mass fraction] 91 % Jennifer Mccarthy Other [facility] Other 10-03-2023 12:55-0500 Systolic blood pressure 120 mm[Hg] Jennifer Mccarthy Other [facility] 05-22-2023 09:00-0400 Body height 162.56 cm Kallie Chase Other [employer] Other 05-22-2023 09:00-0400 Body mass index (BMI) [Ratio] 18.19 kg/m2 Kallie Chase Other [facility] Other 05-22-2023 09:00-0400 Body weight 48.08 kg Kallie Chase Other [facility] Other 05-22-2023 09:00-0400 Diastolic blood pressure 64 mm[Hg] Kallie Chase Other [facility] Other 05-22-2023 09:00-0400 Systolic blood pressure 117 mm[Hg] Kallie Chase Other [facility] Other 05-14-2023 08:30-0400 Body height 162.56 cm Kallie Chase Other [facility] Other 05-14-2023 08:30-0400 Body mass index (BMI) [Ratio] 18.88 kg/m2 Kallie Chase Other [facility] Other 05-14-2023 08:30-0400 Body weight 49.9 kg Kallie Chase Other [facility] Other 05-14-2023 08:30-0400 Diastolic blood pressure 67 mm[Hg] Kallie Chase Other [facility] Other 05-14-2023 08:30-0400 SaO2% (BldA) [Mass fraction] 97 % Kallie Chase Other [employer] Other 05-14-2023 08:30-0400 Systolic blood pressure 122 mm[Hg] Kallie Chase Other [facility] Other 04-23-2023 09:00-0400 Body height 162.56 cm Kallie Chase Other [facility] Other 04-23-2023 09:00-0400 Body mass index (BMI) [Ratio] 18.54 kg/m2 Kallie Chase Other [facility] Other 04-23-2023 09:00-0400 Body weight 48.99 kg Kallie Chase Other [facility] Other 04-23-2023 09:00-0400 Diastolic blood pressure 79 mm[Hg] Kallie Chase Other [facility] Other 04-23-2023 09:00-0400 Systolic blood pressure 143 mm[Hg] Kallie Chase Other [facility] Other 01-08-2023 11:00-0400 Body height 162.56 cm Vernell Alvarez II Other [facility] Other 01-08-2023 11:00-0400 Body mass index (BMI) [Ratio] 19.05 kg/m2 Vernell Alvarez II Other [facility] Other 01-08-2023 11:00-0400 Body weight 50.35 kg Vernell Alvarez II Other [facility] Other 11-11-2022 11:45-0500 Body height 162.56 cm Kallie Chase Other [facility] Other 11-11-2022 11:45-0500 Body mass index (BMI) [Ratio] 19.05 kg/m2 Kallie Chase Other [facility] Other 11-11-2022 11:45-0500 Body weight 50.35 kg Kallie Chase Other [facility] Other 11-11-2022 11:45-0500 Diastolic blood pressure 62 mm[Hg] Kallie Chase Other [facility] Other 11-11-2022 11:45-0500 Systolic blood pressure 102 mm[Hg] Kallie Chase Other [facility] Other Encounters Encounter Date Encounter Type Care Provider Facility Start: 06-21-2025 End: 06-21-2025 Haydee Patricia MD Work Phone: [facility] Start: 06-21-2025 End: 06-21-2025 [facility] Start: 06-21-2025 End: 06-21-2025 Office outpatient visit 15 minutes [facility] Comment on above: Melanocytic nevus of trunk (Primary Dx); History of malignant melanoma of skin; History of nevus excision; Lentigines; Seborrheic keratosis; Capillary angioma Start: 06-21-2025 End: 06-21-2025 ambulatory DASIA PATRICIA Not Available Start: 11-29-2024 End: 11-29-2024 Bamboo flowsheet Braxton Jackson Floresitamichael NEUROLOGY PROFESSOR Work Phone: [facility] Start: 11-29-2024 End: 11-29-2024 Bamboo flowsheet Braxton Singletarynagel NEUROLOGY PROFESSOR Work Phone: [facility] Start: 11-29-2024 End: 11-29-2024 ambulatory BRAXTON JACOBSEN Not Available Start: 11-29-2024 End: 11-29-2024 Office outpatient visit 25 minutes Braxton Renetta Singletaryperimichael NEUROLOGY PROFESSOR Work Phone: [facility] Comment on [...] Start: 10-19-2024 End: 10-19-2024 ambulatory Kallie Chase Facility:[facility] Start: 10-14-2024 End: 10-14-2024 Bamboo flowsheet Dasia Patricia MD Work Phone: [facility] Start: 10-14-2024 End: 10-14-2024 Bamboo flowswalt Patricia MD Work Phone: [facility] Start: 10-14-2024 End: 10-14-2024 ambulatory DASIA PATRICIA Not Available Start: 10-14-2024 End: 10-14-2024 Office outpatient visit 15 minutes Dasia Patricia MD Work Phone: [facility] Comment on above: Melanocytic nevus of trunk (Primary Dx); Pilar cyst; Lentigines; History of nevus excision; History of malignant melanoma of skin; Seborrheic keratosis; Inflamed hair follicle Start: 10-01-2024 End: 10-01-2024 ambulatory Kallie Chase Facility:[facility] Start: 09-14-2024 End: 09-14-2024 ambulatory THADDEUS Nehemias MCCLENDON Not Available Start: 09-14-2024 End: 09-14-2024 Patient encounter procedure Thaddeus Nehemias Mcclendon DO Work Phone: [facility] Comment on above: Encounter for gyneco logical examination without abnormal finding; Encounter for Papanicolaou smear of cervix; Breast cancer screening by mammogram; Osteoporosis, post-menopausal ([facility] Start: 09-14-2024 End: 09-14-2024 Patient encounter status Thaddeus Mcclendon DO Work Phone: [facility] Start: 08-18-2024 End: 08-18-2024 ambulatory Kallie Chase MD Work Phone: [facility] Work Phone: Start: 08-18-2024 End: 08-18-2024 Patient encounter procedure Kallie Chase MD Work Phone: [facility] Work Phone: Start: 08-18-2024 End: 08-18-2024 Patient encounter procedure Kallie Chase MD Work Phone: [facility] Start: 08-18-2024 End: 08-18-2024 ambulatory Kallie Chase MD Work Phone: [facility] Work Phone: Start: 08-09-2024 End: 08-09-2024 ambulatory [facility] Start: 08-09-2024 End: 08-09-2024 Office outpatient visit 25 minutes Yandy Hector MD Work Phone: [facility] Comment on above: Encounter to discuss test results; Hospital discharge follow-up; Heart murmur; S/P mitral valve repair; Mixed hyperlipidemia; Body mass index (BMI) 19.9 or less, adult; Hard of hearing Start: 07-22-2024 End: 07-22-2024 ambulatory MD Kallie Chase Work Phone: [facility] Work Phone: Start: 07-22-2024 End: 07-22-2024 Patient encounter procedure MD Kallie Chase Work Phone: [facility] Work Phone: Start: 07-21-2024 End: 07-21-2024 ambulatory MD Kallie Chase Work Phone: [facility] Work Phone: Start: 07-21-2024 End: 07-21-2024 Patient encounter procedure MD Kallie Chase Work Phone: [facility] Work Phone: Start: 07-06-2024 End: 07-07-2024 ambulatory Kallie Chase Facility:[facility] Start: 07-06-2024 End: 07-07-2024 Evaluation and management of inpatient MD Kallie Chase Work Phone: [facility] [place] [facility] Work Phone: Start: 07-05-2024 End: 07-05-2024 Admission to same day surgery center MD Kallie Chase Work Phone: [facility] [place] Start: 07-05-2024 End: 07-05-2024 ambulatory MD Kallie Chase Work Phone: [facility] Work Phone: Start: 07-05-2024 Non-patient / Non-visit MD Char Chase Work Phone: [facility] Work Phone: Start: 06-25-2024 End: 06-25-2024 ambulatory MD Kallie Chase Work Phone: [facility] Work Phone: Start: 06-25-2024 End: 06-25-2024 Patient encounter procedure MD Kallie Chase Work Phone: [facility] Work Phone: Start: 06-24-2024 End: 06-24-2024 Patient encounter procedure MD Kallie Chase Work Phone: [facility] Work Phone: Start: 06-24-2024 End: 06-24-2024 Discharged Recurring MD Kallie Chase Work Phone: [facility] [place] Start: 06-24-2024 Registered Recurring MD Kallie Chase Work Phone: [facility] [place] Start: 06-24-2024 End: 06-24-2024 ambulatory MD Kallie Chase Work Phone: [facility] Work Phone: Start: 06-22-2024 End: 06-22-2024 Bamboo flowsheet Viraj Barry DO Work Phone: [facility] Start: 06-22-2024 End: 06-22-2024 Bamboo flowsheet Viraj Barry DO Work Phone: [facility] Start: 06-22-2024 End: 06-22-2024 Office outpatient visit 10 minutes Viraj Barry DO Work Phone: [facility] Comment on above: Primary osteoarthrit is of right hip; Status post total hip replacement, right Start: 06-21-2024 End: 06-21-2024 Patient encounter procedure MD Kallie Chase Work Phone: [facility] Work Phone: Start: 06-21-2024 End: 06-21-2024 ambulatory MD Kallie Chase Work Phone: [facility] Work Phone: Start: 06-21-2024 Encounter for preprocedural laboratory examination Vernell Alvarez [facility] Phys[facility] Start: 05-14-2024 Preoperative state MD Kallie kothari Work Phone: [facility] Start: 05-14-2024 End: 05-14-2024 ambulatory [facility] Work Phone: Start: 05-14-2024 End: 05-14-2024 Patient encounter procedure [facility] Work Phone: Start: 04-16-2024 Non-patient / Non-visit [facility] Work Phone: Start: 04-15-2024 End: 04-15-2024 ambulatory MD Kallie Chase Work Phone: [facility] Work Phone: Start: 04-15-2024 End: 04-15-2024 Patient encounter procedure MD Kallie Chase Work Phone: [facility] [place] [facility] Work Phone: Start: 04-02-2024 End: 04-02-2024 ambulatory MD Kallie Chase Work Phone: [facility] Work Phone: Start: 04-02-2024 End: 04-02-2024 Patient encounter procedure MD Kallie Chase Work Phone: [facility] Work Phone: Start: 01-16-2024 End: 01-16-2024 ambulatory MD Kallie Chase Work Phone: [facility] Work Phone: Start: 01-16-2024 End: 01-16-2024 Patient encounter procedure MD Kallie Chase Work Phone: [facility] [place] [facility] Work Phone: Start: 01-07-2024 Non-patient / Non-visit MD Char Chase Work Phone: [facility] Work Phone: Start: 12-17-2023 End: 12-17-2023 ambulatory [facility] Work Phone: Start: 12-17-2023 End: 12-17-2023 Patient encounter procedure [facility] Work Phone: Start: 12-15-2023 Non-patient / Non-visit [facility] Work Phone: Start: 12-04-2023 Non-patient / Non-visit [facility] Work Phone: Start: 11-18-2023 Chart abstracting Viraj villavicencio DO Work Phone: [facility] Start: 11-18-2023 End: 11-18-2023 Office outpatient visit 10 minutes Viraj Barry DO Work Phone: [facility] Comment on above: Primary osteoarthrit is of right hip (Primary Dx); Status post total hip replacement, right Start: 10-03-2023 End: 10-03-2023 ambulatory Jennifer Mccarthy Other [facility] Other Start: 10-03-2023 Office outpatient vi sit 10 minutes Jennifer Mccarthy [facility] Start: 10-03-2023 End: 10-03-2023 Patient encounter procedure [facility] Work Phone: Start: 08-19-2023 End: 08-19-2023 ambulatory MD Kallie Chase Work Phone: [facility] Work Phone: Start: 08-19-2023 End: 08-19-2023 Patient encounter procedure MD Kallie Chase Work Phone: [facility] [address] Work Phone: Start: 05-22-2023 End: 05-22-2023 ambulatory Kallie Chase Other [employer] Other Start: 05-22-2023 Encounter for other preprocedural examination Kallie Chase [facility] Start: 05-22-2023 Office outpatient vi sit 15 minutes Kallie Chase [facility] Start: 05-15-2023 End: 05-15-2023 ambulatory Kallie Chase Other [employer] Other Start: 05-15-2023 Telephone encounter Kallie Chase [facility] Start: 05-14-2023 End: 05-14-2023 ambulatory Kallie Chase Other [employer] Other Start: 05-14-2023 Office outpatient vi sit 15 minutes Kallie Chase [facility] Start: 04-25-2023 End: 04-25-2023 ambulatory [facility] Start: 04-25-2023 End: 04-25-2023 Encounter for other preprocedural examination [facility] Start: 04-23-2023 End: 04-23-2023 ambulatory Kallie Chase Other [employer] Other Start: 04-23-2023 Office outpatient vi sit 15 minutes Kallie Chase [facility] Start: 04-11-2023 End: 04-11-2023 ambulatory Kallie Chase Other [employer] Other Start: 04-11-2023 Telephone encounter Kallie Chase [facility] Start: 03-07-[address] KALLIE CHASE Facil ity:[facility]1 Start: 01-08-2023 Office outpatient ne w 45 minutes Vernell Alvarez II [facility] Start: 01-08-2023 End: 01-08-2023 ambulatory MD Kallie Chase Work Phone: [employer] Other Start: 01-08-2023 End: 01-08-2023 Patient encounter procedure MD Kallie Chase Work Phone: [facility] [place] [facility] Start: 11-11-2022 End: 11-11-2022 ambulatory Kallie Chase Other [employer] Other Start: 11-11-2022 Office outpatient vi sit 15 minutes Kalile Chase [facility] Start: [address] KALLIE CHASE Facil ity:[facility]1 Start: 09-13-2022 End: 09-13-[address] KALLIE CHASE Facility:[facility] Start: 08-05-2022 Adult health examination Serena Chase Other [employer] Other Start: 08-05-2022 Encounter for genera l adult medical examination without abnormal findings Kallie Chase Other [employer] Other Start: 06-12-2022 End: 06-13-[address] DEJON IRBY Facility:[facility] Start: 05-23-2022 End: 05-24-[address] KALLIE CHASE Facility:[facility] Start: 05-20-2022 End: 05-21-[address] BALTA JANE Facility:[facility] Start: 04-24-2022 End: 04-25-[address] KALLIE CHASE Facility:[facility] Start: 08-10-2021 End: 08-10-2021 Encounter for other preprocedural examination Kallie Chase Other [employer] Other Start: 08-10-2021 End: 08-10-2021 Pre-procedure evaluation check Kallie Chase Other [employer] Other Start: 03-22-2021 End: 03-27-2021 Evaluation and management of inpatient KALLIE CHASE Facility:[facility] Start: 03-14-2021 End: 04-03-2021 ambulatory REFERRED SELF Facility:[facility] Start: 02-27-2021 End: 07-09-2021 ambulatory REFERRED SELF Facility:[facility] Start: 02-21-2021 Encounter for gynecological examination (general) (routine) with abnormal findings Kallie Chase Other [employer] Other Start: 02-21-2021 Gynecological examin ation abnormal Kallie Chase Other [employer] Other Procedures Date Procedure Procedure Detail Performing [...] Radex hip unilateral with pelvis 2-3 views Viraj Barry DO Work Phone: Start: 06-21-2024 Antibody screen Vernell Alvarez II Comment on above: Order Comment: Name Collection Type:: Voided Result Comment: PERF ORMED BY: [facility] [address] [place] [address] PATHOLOGIST FLOORMAN KRISTINA ENNIS M.D. Order Comment: Date of Surgery: [id number] Start: 01-16-2024 Plain X-ray of left hip MD Kallie Chase Work Phone: Start: 11-18-2023 Radex hip unilateral with pelvis 2-3 views Viraj Barry DO Work Phone: Start: 01-08-2023 Plain X-ray of right hip MD Kallie Chase Work Phone: Start: 03-22-2021 COMPUTER ASSISTED PROCEDURE OF [facility] Start: 03-22-2021 [...] above: Performed By: #### 3 0738 #### [address] Start: 07-14-2017 Screening for malign ant neoplasm of colon Kallie Chase Other Start: 10-31-2014 Removal of suture Serena Chase Other H/O: surgery History of nevus excision Dasia Patricia MD Work Phone: H/O: surgery History of nevus excision Dasia Patricia MD Work Phone: End: 02-13-2021 Screening for malignant neoplasm of breast Kallie Chase Other Screening for malign ant neoplasm of skin Kallie Chase Other Screening for osteoporosis Bhupendra Chase Other Plan of Treatment Date Care Activity Detail Author Start: 06-22-2026 End: 06-22-2026 Patient encounter procedure 06/22/2026 9:30 AM EDT Office Visit [facility] [place] [facility] [address] [place] [address] Dasia Patricia MD [address] [place] [address] [facility] [facility] Start: 11-28-2025 End: 11-28-2025 Patient encounter procedure [facility] Start: 09-19-2025 End: 09-19-2025 Patient encounter procedure [facility] Start: 08-15-2025 End: 08-15-2025 Patient encounter procedure 08/15/2025 1:00 PM EST Office Visit [facility] [address] [facility] [address] [place] [address] Yandy Hector MD [address] [facility] [address] [place] [address] [facility] Start: 06-28-2025 End: 06-28-2025 Patient encounter procedure 06/28/2025 9:00 AM EDT Office Visit [facility] [address] [facility] [address] [place] [phone] Viraj Barry DO [address] [facility] [address] [place] [address] [facility] Start: 06-21-2025 End: 06-21-2025 Patient encounter procedure [facility] Comment on above: Arrived Start: 03-07-2025 Screening for osteoporosis Bone Density Scan [facility] Start: 11-29-2024 End: 11-29-2024 Patient encounter procedure 11/29/2024 8:30 AM EST Office Visit [facility] [address] [place] [phone] Braxton Jacobsen, NEUROLOGY PROFESSOR [address], [facility] [address] [place] [phone] [facility] Start: 11-01-2024 End: 11-01-2024 Patient encounter procedure 11/01/2024 10:40 AM EST Office Visit [facility] [address] [place] [phone] Juan Pablo Doshi MD [address] [facility] [address] [id number] [facility] Start: 10-14-2024 End: 10-14-2024 Patient encounter procedure 10/14/2024 1:20 PM EST Office Visit [facility] [address] [place] [address] Dasia Patricia MD [address] [place], [place] [phone] [facility] Start: 09-14-2024 End: 09-14-2024 Patient encounter procedure 09/14/2024 10:00 AM EST Office Visit [facility] [address] [place] [address] Thaddeus Mcclendon DO [address] [place], [place] [id number] [facility] Start: 08-18-2024 Plain X-ray of left hip XR hip LT min 2V(w/wo pelvis)* [facility] Start: 08-18-2024 XR Hip - left 2 Views [facility] Start: 08-09-2024 End: 08-09-2025 Comprehensive metabolic 2000 panel - Serum or Plasma Comprehensive Metabolic Panel Lab Routine Mixed hyperlipidemia Expected: 08/09/2024 (Approximate), Expires: 08/09/2025 [facility] Work Phone: Comment on above: Expected: 08/09/2024 (Approximate), Expires: 08/09/2025 Start: 08-09-2024 End: 08-09-2025 Lipid 1996 panel - Serum or Plasma Lipid Panel Lab Routine Mixed hyperlipidemia Expected: 08/09/2024 (Approximate), Expires: 08/09/2025 [facility] Service Area Work Phone: Comment on above: Expected: 08/09/2024 (Approximate), Expires: 08/09/2025 Start: 07-16-2024 [facility] Start: 07-15-2024 [facility] Start: 07-14-2024 [facility] Start: 07-13-2024 [facility] Start: 07-12-2024 [facility] Start: 07-11-2024 [facility] Start: 07-10-2024 [facility] Start: 07-09-2024 [facility] Start: 07-08-2024 [facility] Start: 07-07-2024 End: 07-07-2024 [facility] Start: 07-07-2024 Doppler ultrasonogra phy of bilateral carotid arteries US carotid doppler BI [facility] Start: 07-07-2024 US.doppler Carotid arteries - bilateral [facility] Start: 07-06-2024 Physical therapy procedure [facility] Start: 07-06-2024 Referral to occupati onal therapist [facility] Start: 07-06-2024 Hospital admission [facility] Start: 07-06-2024 [facility] Start: 07-05-2024 Hospital admission [facility] Start: 07-05-2024 XR Hip - left GE 2 Views [facility] Start: 07-05-2024 End: 07-05-2024 Plain X-ray of left hip [facility] Start: 07-05-2024 XR Hip - left 2 Views [facility] Start: 07-05-2024 End: 07-05-2024 [facility] Start: 06-22-2024 End: 06-22-2024 Patient encounter procedure 06/22/2024 9:30 AM EDT Office Visit [facility] [address] [facility] [address] [place] [address] Viraj Barry DO [address] [place] [address] [place] [address] Primary osteoarthritis of right hip; Status post total hip replacement, right [facility] Comment on above: Primary osteoarthrit is of right hip; Status post total hip replacement, right Start: 06-21-2024 [facility] Start: 06-08-2024 End: 06-08-2024 Patient encounter procedure 06/08/2024 9:15 AM EDT Office Visit [facility] [address] [place] [address] Viraj Barry, DO [address] [place] [address] [place] [address] [facility] Start: 06-06-2024 COVID-19 Vaccine ( season) COVID-19 Vaccine ( season) [facility] Start: 06-06-2024 Influenza vaccination Influenza Vacc ine (#1) [facility] Start: 04-15-2024 End: 04-15-2024 Patient encounter procedure 04/15/2024 1:30 PM EDT Office Visit [facility] [address] [place] [address] Dasia Patricia MD [address] [place] [address] [place] [address] [facility] Start: 01-16-2024 Plain X-ray of left hip XR hip LT min 2V(w/wo pelvis)* [facility] Start: 01-16-2024 XR Hip - left 2 Views [facility] Start: 12-18-2023 Patient referral [facility] Work Phone: Start: 11-18-2023 End: 11-18-2023 Patient encounter procedure 11/18/2023 11:00 AM EST Office Visit [facility] [address] [place] [phone] Viraj Barry, DO [address] [place] [address] [place] [address] [facility] Start: 02-26-2022 Zoster Vaccines (3 of 3) Zoste r Vaccines (3 of 3) [facility] Start: 10-22-2018 Pneumococcal Vaccine : 65+ Years (2 of 2 - PCV) Pneumococcal Vaccine: 65+ Years (2 of 2 - PCV) [facility] Start: 2010 RSV High Risk: (Elde rly (60+) or Population) (1 - Risk 60-74 years 1-dose series) RSV High Risk: (Elderly (60+) or Population) (1 - Risk 60-74 years 1-dose series) [facility] Start: 1990 Screening for malign ant neoplasm of breast Mammogram [facility] Start: 1972 DTaP/Tdap/Td Vaccine s (1 - Tdap) DTaP/Tdap/Td Vaccines (1 - Tdap) [facility] Start: 1968 Hepatitis C screening Hepatitis C Sc [facility] Start: 1950 Lipid panel Lipid Panel [facility] Start: 1950 Medicare Annual Well ness Visit Medicare Annual Wellness Visit (AWV) [facility] Start: 1950 Screening for malign ant neoplasm of colon [facility] Start: 1950 Thyroid stimulating hormone measurement TSH Level [facility] Anion gap measurement [facility] Basophils [#/volume] in Blood by Automated count [facility] Basophils/100 leukoc ytes in Blood by Automated count [facility] Eosinophils/100 leukocytes in Blood by Automated count [facility] Erythrocyte distribu tion width [Ratio] by Automated count [facility] Erythrocytes [#/volu me] in Blood [facility] Hematocrit [Volume Fraction] of Blood [facility] Hemoglobin [Mass/vol ume] in Blood [facility] Hemoglobin [Mass/vol ume] in Blood [facility] IGP,rfxAptima HPV all,16/18,45 IGP,rfxAptima HPV all,16/18,45 Pathology and Cytology Routine Encounter for Papanicolaou smear of cervix Ordered: 09/14/2024 [facility] Work Phone: Comment on above: Ordered: 09/14/2024 Leukocytes [#/volume ] corrected for nucleated erythrocytes in Blood by Automated coun [facility] Leukocytes [#/volume ] in Blood [facility] Lymphocytes [#/volum e] in Blood by Automated count [facility] Lymphocytes/100 leukocytes in Blood by Automated count [facility] MCH [Entitic mass] b y Automated count [facility] MCHC [Mass/volume] b y Automated count [facility] MCV [Entitic volume] by Automated count [facility] Methicillin resistan t Staphylococcus aureus [Presence] in Unspecified specimen by Organism specific culture [facility] Monocytes [#/volume] in Blood by Automated count [facility] Monocytes/100 leukoc ytes in Blood by Automated count [facility] Neutrophils [#/volum e] in Blood by Automated count [facility] Neutrophils/100 leukocytes in Blood by Automated count [facility] Nucleated erythrocyt es [Presence] in Blood by Automated count [facility] Work Phone: Patient referral [facility] Work Phone: Platelet mean volume [Entitic volume] in Blood by Automated count [facility] Platelets [#/volume] in Blood [facility] Immunizations Immunization Date Immunization Notes Care Provider Nuvia torres 01-01-2022 zoster vaccine recombinant Viraj Barry DO Work Phone: [facility] 12-31-2021 zoster vaccine, live Kallie Chase Other [facility] 09-24-2021 zoster vaccine recombinant Viraj Barry DO Work Phone: [facility] 09-24-2021 zoster vaccine, live Kallie Chase Other [facility] 10-22-2017 pneumococcal polysaccharide vaccine, 23 valent Viraj Barry DO Work Phone: [facility] 02-12-2012 zoster vaccine, live Viraj luo DO Work Phone: [facility] Payers Date Payer Category Payer Self-pay [id number] 2023 Medicaid [employer] MEDICARE A DVANTAGE [id number] 2021 Medicare [id number] 2021 Medicare (Managed Care) [employer] [facility] MEDICARE [id number] 1959 Medicare [id number] 2.16.840.1.090458.19 1950 Unknown [id number] 2.16.840.1.213927.3.579.2. 647 1950 Unknown [id number] 2.16.840.1.877921.3.579.2. 647 1950 Unknown [id number] 2.16.840.1.568235.3.579.2. 647 1950 Unknown [id number] 2.16.840.1.894753.3.579.2. 593 1950 Unknown [id number] 2.16.840.1.269571.3.579.2. 593 1950 Unknown [id number] 2.16.840.1.865787.3.579.2. 593 1950 Unknown [id number] 2.16.840.1.440294.3.579.2. 593 1950 Unknown [id number] 2.16.840.1.965218.3.579.2. 593 1950 Unknown [id number] 2.16.840.1.172976.3.579.2. 593 1950 Unknown [id number] 2.16.840.1.337827.3.579.2. 593 1950 Unknown [id number] 2.16.840.1.859002.3.579.2. 1244 1950 Unknown [id number] 2.16.840.1.494852.3.579.2. 718 1950 Unknown [id number] 2.16.840.1.650874.3.579.2. 1259 1950 Unknown [id number] 2.16.840.1.830794.3.579.2. 1259 1950 Unknown [id number] 2.16.840.1.434749.3.579.2. 1259 1950 Unknown [id number] 2.16.840.1.479154.3.579.2. 1259 1950 Unknown [id number] 2.16.840.1.975468.3.579.2. 1259 Private Health Insurance HIB LGPFX Unknown [facility] [id number] Unknown [id number] 2.16.840.1.351621.3.579.2. 531 Unknown [id number] 2.16.840.1.334635.3.579.2. 531 Unknown [id number] 2.16.840.1.839564.3.579.2. 531 Unknown [id number] 2.16.840.1.643810.3.579.2. 531 Unknown [id number] 2.16.840.1.214564.3.579.2. 531 Unknown [id number] 2.16.840.1.555228.3.579.2. 531 Unknown [id number] 2.16.840.1.852679.3.579.2. 531 Social History Date Type Detail Facility Unknown if ever smoked [facility] Other Start: 07-29-2023 End: 09-14-2024 Sex Assigned At [employer] Other Start: 1950 Sex Assigned At Female F [facility] Start: 02-18-2023 End: 07-07-2024 Tobacco smoking status NMIS Never smoked tobacco [facility] Start: 02-18-2023 End: 08-04-2023 Tobacco use and exposure Smokeless tobacco non-user [facility] Start: 10-21-2023 End: 06-21-2025 Alcohol intake Ex-drinker (finding) [facility] Start: [...] beverage intake Current drinker of alcohol (finding) [facility] Work Phone: Start: 08-04-2023 Alcohol Comment social [facility] Work Phone: Start: 07-30-2024 End: 08-09-2024 Exposure to SARS-CoV-2 (event) Not sure [facility] Start: 08-18-2024 End: 08-19-2024 Sex Female (finding) [facility] Medical Equipment Procedure Code Equipment Code Equipment Origin al Text Equipment Identifier Dates Arthroplasty, hip, total, anterior approach Acetabular shell ()[id number] FDA Start: 07-05-2024 Arthroplasty, hip, total, anterior approach Orthopaedic bone screw, non-bioabsorbable, sterile ()[id number] FDA Start: 07-05-2024 Arthroplasty, hip, total, anterior approach Orthopaedic bone screw, non-bioabsorbable, sterile ()[id number] FDA Start: 07-05-2024 Arthroplasty, hip, total, anterior approach Ceramic femoral head prosthesis ()[id number] FDA Start: 07-05-2024 Arthroplasty, hip, total, anterior approach Coated hip femur prosthesis, modular ()[id number] FDA Start: 07-05-2024 Arthroplasty, hip, total, anterior approach Non-constrained polyethylene acetabular liner ()[id number] FDA Start: 07-05-2024 Goals Date Patient Goal Desired Activity /State Functional Status Date Assessment Result Facility 07-07-2024 Functional status Patient at Baseline [facility] Work Phone: Mental Status Date Assessment Result Facility 07-07-2024 Cognitive function Cognitive Sta tus Patient at Baseline [facility] Work Phone: Clinical Notes 03-06-2021 to 06-21-2025 Dasia Patricia MD - 06/21/2025 11:00 AM Jame Jacobsen NP - 11/29/2024 8:30 AM ARINA Restrepo - 11/08/2024 2:20 PM Deidra Patricia MD - 10/14/2024 1:20 PM EST Note Date & Type Note Facility 06-21-2025 History of Present illness Narrative Skin Check Location: Patient requests a full body skin examination Dermatologic history: history of Actinic Keratosis, history of Melanoma, history of atypical mole(s) Last visit: 8 months ago last skin check, 11/08/2024- abrasion left cheek Established patient Melanoma History: Date of Melanoma Dx: 01/23/2015 Melanoma Details: Type malignant melanoma Breslow's Depth 0.42mm Mitotic rate 0/mm squared Ulceration Ulceration Not Present Melanoma Treatment: Type Wide excision Location: Left upper arm Patient denies fatigue, shortness of breath, enlarged lymph nodes, unintentional weight loss, or abdominal pain today. All pertinent medical history, medications, and allergies were reviewed. General Exam: alert, oriented to person, place, and time, normal affect, well appearing uses crutches Unaccompanied Scalp, Examined , exam limited by hair Right leg Examined Head, Face Examined Left leg Examined Neck Examined Right foot Examined Chest Examined Left foot Examined Back Examined Buttocks Examined Patient kept underwear on Abdomen Examined Digits,nails: Examined Right arm Examined Left arm Examined Lymphatics: Examined Hands Examined no cervical lymphadenopathy, no supraclavicular lymphadenopathy, no axillary lymphadenopathy Skin Exam 1. HISTORY OF MALIGNANT MELANOMA OF SKIN Left Upper Arm - Anterior No evidence [...] within or around the previous melanoma scar. 2. HISTORY OF NEVUS EXCISION (3) Left Back, Left Forearm, Right Shoulder No evidence of recurrence in scar from atypical mole excision. Notify office for any recurrence at surgery site or for any new or changing lesions. 3. LENTIGINES Generalized Scattered ramirez macules in sun-exposed areas. The patient was informed that lentigines are benign pigmented lesions that occur on sun-exposed and sun-damaged skin. No treatment is necessary. Recommended regular use of broad spectrum sunscreen SPF 30 or higher 4. MELANOCYTIC NEVUS OF TRUNK Generalized Scattered benign appearing, regular brown to light brown melanocytic papules and macules with similar morphology Counseled regarding these benign growths. Rarely, a nevus can develop into malignant melanoma, so any changing nevi should be promptly re-evaluated. 5. SEBORRHEIC KERATOSIS Generalized Stuck on verrucous, ramirez-brown papules and plaques. Patient was counseled regarding these benign growths. Removal is normally not necessary, but they may be removed if they are symptomatic or for cosmetic reasons. 6. CAPILLARY ANGIOMA Generalized Scattered diallo-red papule(s). The patient was informed that angiomas are benign growths on the the skin. No treatment is necessary. Next Visit: 1 year skin check documented in this encounter [facility] 11-29-2024 History of Present illness Narrative Images [...] L-METHYLFOLATE CALCIUM PO 1 tablet, Daily RT T-Efwxvwcrpkid-Ftxml-B12-B6 (Metanx) .314-2-35 MG capsule 1 capsule, Oral, Daily levothyroxine [...] Medications Discontinued During This Encounter Medication Reason V-Tqxfukszjohh-Gvkoz-B12-B6 (Metanx) .314-2-35 MG capsule Reorder folic acid (Folvite) 1 MG tablet Reorder ergocalciferol (Vitamin D-2) 1.25 MG (08426 UT) capsule Reorder magnesium oxide (Mag-Ox) 400 [...] HYSTEROSCOPY 07/2021 D+C - Dr. Bernabe at [facility] MITRAL VALVE REPAIR 03/2021 PELVIC LAPAROSCOPY age [...] Left pathological reflexes: Reynaldo's absent. Coordination Right: Vxjnui-bf-uoqb normal. Rapid alternating movement normal.Left: Ftjmmp-nv-caks normal. Rapid alternating movement normal. Gait Romberg [...] orders for this visit: Lumbosacral radiculopathy - S-Qoozewdbwlek-Lxxaq-B12-B6 (Metanx) 3-90.314-2-35 MG capsule; Take 1 capsule [...] mouth Daily Disturbance of skin sensation - B-Cstvatwpcahu-Kaajw-B12-B6 (Metanx) 3-90.314-2-35 MG capsule; Take 1 capsule by mouth Daily - Vitamin E 45 MG (100 UNIT) capsule; Take 1 capsule by mouth Daily - biotin 10 MG tablet; Take 4 tablets (40 mg) by mouth Daily Vitamin D deficiency - ergocalciferol (Vitamin D-2) 1.25 MG (23742 UT) capsule; Take 1 capsule (1.25 mg) [...] application topically every 8 (eight) hours Continue W-Wplnssfzghrk-Sfzft-B12-B6 (Metanx) 3-90.314-2-35 MG capsule; Take 1 capsule by mouth Daily Continue ergocalciferol (Vitamin D-2) 1.25 MG (41557 UT) capsule; Take 1 capsule (1.25 mg) by mouth 1 (one) time per week Recommend using splints for CTS Will repeat Vit D and neuropathy panel next time I will see the patient back in 1 year, or sooner if needed, to make further recommendations documented in this encounter [facility] 11-08-2024 History of Present illness Narrative [...] Visit: as scheduled documented in this encounter [facility] 10-19-2024 Note PROCEDURE: XR Bone L [...] MD 10/20/24 7:32 am Technologist: RANDI ELAM [facility] 10-14-2024 History of Present illness Narrative Skin [...] Visit: 6 months documented in this encounter [facility] 09-14-2024 History of Present illness Narrative Images from the original note were not included. Thaddeus Mcclendon, DO Obstetrics and Gynecology Thiago Denise Ramandeep 1950 09/14/24 [id number] Yearly Wellness Exam Chief Complaint Patient presents with Gynecologic Exam Medicare yearly. LMP: Age 21 - only regular at age 13-18, was told genetic. Sent to [place] for laparoscopy - no more eggs- early [...] same time. ergocalciferol (Vitamin D-2) 1.25 MG (91331 UT) capsule Take 1 capsule (1.25 mg) [...] 1 tablet by mouth in the morning. B-Xyurjhodfatr-Ultal-B12-B6 (Metanx) 3-90.314-2-35 MG capsule Take 1 capsule [...] HYSTEROSCOPY 07/2021 D+C - Dr. Bernabe at [facility] MITRAL VALVE REPAIR 03/2021 PELVIC LAPAROSCOPY age [...] costovertebral angle tenderness, no obvious scoliosis/kyphosis. 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 documented in this encounter [facility] 08-09-2024 History of Present illness Narrative [...] was the diagnosis. Oxycodone was switched to [place] History so Far : Has history of mitral valve repair, 2020 [facility]. Does not recall having much in the [...] discussion and plan. documented in this encounter [facility] Work Phone: 08-09-2024 Instructions Fox John MA - 08/09/2024 1:00 PM EST Please bring all medicines, vitamins, and herbal supplements with you when you come to the office. Prescriptions will not be filled unless you are compliant with your follow up appointments or have a follow up appointment scheduled as per instruction of your physician. Refills should be requested at the time of your visit. documented in this encounter [facility] Work Phone: 07-07-2024 History and physi karin note Note Date/Time July 07, 2024 12:30am [facility] [address] [place] [address] Hospitalist H&P Signed Patient: Thiago Sabillon MR#: [id number] : 1950 Acct:[id number] Age/Sex: 73 / F Adm Date: 4 Loc: 3T Room: [address] [place] [address] Type: ADM IN Attending Dr: Pedro Quintero DO Copies to: TORI Merritt MD Shawn J Warner, ~ HPI DATE OF EXAMINATION: 07/06/24 CHIEF COMPLAINT: Dizziness, syncope/unresponsiveness HISTORY OF PRESENT ILLNESS: Patient is a pleasant 73-year-old female with PMH of osteoarthritis, HLD, hypothyroidism, mitral valve repair (2019, in [place]) who is status post left total hip [...] unless noted below or in the HPI. [facility] Medical History Inguinal hernia Macular degeneration right [...] melanoma excision left arm and back, 2014, 2018 Status post total hip replacement, right Mitral [...] mg PO DAILY 08/11/17 [History Confirmed 07/07/24] jprx-nlgdq-xr8-cne-uga-gkgw-sterols 375 mg-100 mg-36 mg-54 mg capsule (Glucosamine Chondroitin PLUS) 1 cap PO DAILY 08/11/17 [History Confirmed 07/07/24] mecobalamin-levomefolate calcium-pyridoxal phos 2 mg-3 mg-35 mg tablet (Foltanx)1 tab PO DAILY 08/11/17 [History Confirmed 07/05/24] omega 3,6,9 combination no.7 92 mg (43 mg-22 gs-08fi-92gi) chew tablet ([place] DHA) 1 tab PO DAILY 08/11/17 [History Confirmed 07/07/24] vit A 300 mcg-C 200 mg-E 27 mg-lutein 2 mg and minerals tablet (Eye Health Plus Lutein) 1 tab PO DAILY 08/11/17 [History Confirmed 07/07/24] denosumab 60 mg/mL subcutaneous syringe (Prolia) 60 mg subcut [id number] 05/14/24 [History Confirmed 07/05/24] vitamin K2 100 [...] % (Auto) 10.0 % (.) 07/06/24 17:05 [place] % (Auto) 10.1 % (.) 07/06/24 17:05 Eos % (Auto) 0.4 % (.) 07/06/24 17:05 Baso % (Auto) 0.3 % (.) 07/06/24 17:05 Nucleat RBC Rel Count 0.0 /100 WBC (0-0.5) 07/06/24 17:05 Neut # (Auto) 10.2 x10E3/uL (1.8-7.7) H 07/06/24 17:05 Lymph # (Auto) 1.3 x10E3/uL (1.00-4.8) 07/06/24 17:05 Sevier # (Auto) 1.3 x10E3/uL (0.0-0.8) H 07/06/24 [...] signed by Pedro Quintero DO> 07/07/24 0644 [facility] Work Phone: 1(242) 462-236209-19-2024 Evaluation note* Diagnosis Onset Date Resolution Status Admit Date Primary osteoarthritis of le ft hip acute June 24, 2024 2:35pm Bradycardia acute July 06, 2024 11:13pm Primary osteoarthritis of le ft hip acute July 06 11:13pm S/P total left hip arthroplasty acute July 06 11:13pm Syncope resolved July 06 11:13pm Aftercare following left hip joint replacement surgery acute Octobe r 2023 1:24pm S/P total left hip arthroplasty acute July 21 1:24pm Left leg swelling acute July 22, 2024 11:31am Aftercare following left hip joint replacement surgery acute Novemb er 2023 10:51am S/P total left hip arthroplasty acute August 18 024 10:51am [facility] Work Phone: 1(569) 625-726409-17-2024 History of Present illness Narrative* Viraj Barry DO - 06/22/2024 9:30 AM EDT Images from [...] same time. ergocalciferol (Vitamin D-2) 1.25 MG (68742 UT) capsule Take 1 capsule (1.25 mg) [...] 1 tablet by mouth in the morning. U-Nrvkvmoqpsvx-Ayqxy-B12-B6 (Metanx) 3-90.314-2-35 MG capsule Take 1 capsule [...] Dr. Barry/lauro Barry D.O. [id number] Hospital Discharge instructionsAmbulatory Orders* Referral to General Surgery Time Frame: 12/18/23, Location: [facility] Work Phone: 1(900) 998-962202-13-2024 History of Present illness Narrative* Viraj Barry DO - 11/18/2023 11:00 AM EST [...] same time. ergocalciferol (Vitamin D-2) 1.25 MG (36370 UT) capsule Take 1 capsule (1.25 mg) [...] 1 tablet by mouth in the morning. D-Ebsacyoiplqq-Vlggl-B12-B6 (Metanx) 3-90.314-2-35 MG capsule Take 1 capsule [...] Dr. Barry/lauro Barry D.O. documented in [facility] encounter[facility] HospitalHavvlbaneo57-12-5208 Evaluation note* Encounter Date Diagnosis Assessment Notes [...] denies CP, SOB throughout. EMS transferred to [place] ER in stable condition. [facility] Other 08-17-2023 Evaluation note* Encounter Date Diagnosis Assessment Notes Treatment Notes Treatment Clinical Notes May, Preoperative clearance (ICD-10 - Z01.818) Denies issues with surgeries in the past. She is moving forward with the hip replacement. Reviewed preop labs earlier this month. Able to proceed w surgery. [facility] Other 08-09-2023 Evaluation note* Encounter Date Diagnosis Assessment Notes Treatment Notes Treatment Clinical Notes May, Primary osteoarthritis of right hip (ICD-10 - M16.11) Discussed putting off surgery. Will obtain labs from [place] for her information and reassurance that they are normal, but will reconsider hip replacement with Dr. Barry in future. May, Other Pt notes mild f oot pain, declines brusing, treatment, or desire for intervention on R foot pain. Oct, Hypothyroidism, unspecified (ICD-10 - E03.9) refilled rx - chronic stable condition [facility] Other 07-21-2023 NotePatient here for surgery clearance. She will be having a right RACHEL with Dr. Barry at [facility]. She denies any cardiac symptoms at this time. No recent testing. Review of Systems Musculoskeletal: Positive for arthritis, back pain and joint pain. All other systems reviewed and are negative.[facility] 04-25-2023 NoteCardiology Follow Up Progress Note [...] a day. ergocalciferol (Vitamin D-2) 1.25 MG (85641 Units) capsule Take 1 capsule by mouth [...] Strict return precautions wer (more content not included)...[facility]07-19-2023 Evaluation note* Encounter Date Diagnosis Assessment [...] Reassured her t hat mammogram is normal. [facility] Other 04-05-2023 Evaluation note* Encounter Date Diagnosis [...] we can discuss surgery at that time. [facility] Other 02-06-2023 Evaluation note* Encounter Date Diagnosis Assessment Notes Treatment Notes Treatment Clinical Notes Nov, Foreign body of left ear, initial encounter (ICD-10 - T16.2XXA) used forceps to remove part of hearing aid from L canal Nov, Impacted cerumen, right ear (ICD-10 - H61.21) attempted to manually remove - has very hard cerumen. Recommended OTC debrox. [facility] Other 07-05-2021 NoteMR#: [id number] [facility] Pt. Name: Thiago Sabillon Admitted: 03/22/2021 [...] CONDITION: Good. Stable. DISCHARGE DISPOSITION: Home with [facility]. DISCHARGE MEDICATIONS: Alendronate 35 mg once weekly, aspirin 325 mg once daily, atorvastatin 80 mg once daily, biotin oral 56105 mcg once daily, vitamin D2 1250 mcg [...] P/Angel Love CNP Date Trans: 04/09/2021 05:47 P/haroono [id number] [facility]06-01-2021 History general Narrative - Reported* Type Description Date Medical History Arthritis Medical History heart murmur Surgical History Heart murmur repair 03/2021 [facility] Other 06-01-2021 History general Narrative - Reported* Type Description Date Medical History Arthritis Medical History heart murmur Surgical History Heart murmur repair 03/2021 Surgical History melanoma excision Surgical History carpal tunnel release right Surgical History hernia [facility] [employer] Other Evaluation noteNo assessment information available [facility] Work Phone: Evaluation noteNo InformationNortMer[facility] Other Evaluation note* Diagnosis Primary osteoarthritis of right hip- Primary Status post total hip replacement, right [facility] Diagnosis Onset Date Resolution Status Right hip pain acute Sebaceous cyst acute [facility] Work Phone: Evaluation note* Diagnosis Onset Date Resolution Status Right hip pain acute Sebaceous cyst acute Left hip pain acute [facility] Work Phone: evaluation note* Diagnosis Onset Date Resolution Status Primary osteoarthritis of left hip acute [facility] Work Phone: evaluation note* Diagnosis Onset Date Resolution Status Primary osteoarthritis of left hip acute Sinusitis, acute maxillary a cute [facility] Work Phone: evaluation note* Diagnosis Onset Date Resolution Status Sinusitis, acute maxillary a cute Primary osteoarthritis of left hip acute [facility] Work Phone: evaluation note* Diagnosis Onset Date Resolution Status Sinusitis, acute maxillary a cute Primary osteoarthritis of left hip acute Mitral valve replaced acute Preoperative clearance acute Primary osteoarthritis of left hip acute Tinea pedis acute [facility] Work Phone: evaluation note* Diagnosis Onset Date Resolution Status Sinusitis, acute maxillary a cute Primary osteoarthritis of left hip acute Mitral valve replaced acute Preoperative clearance acute Primary osteoarthritis of left hip acute Tinea pedis acute Primary osteoarthritis of left hip acute [facility] Work Phone: evaluation note* Diagnosis Onset Date Resolution Status Primary osteoarthritis of left hip acute Mitral valve replaced acute Preoperative clearance acute Primary osteoarthritis of left hip acute Tinea pedis acute Primary osteoarthritis of left hip [facility] Work Phone: evaluation note* Diagnosis Onset Date Resolution Status Primary osteoarthritis of left hip acute Mitral valve replaced acute Preoperative clearance acute Primary osteoarthritis of left hip acute Tinea pedis acute Primary osteoarthritis of left hip acute Bradycardia acute Primary osteoarthritis of left hip acute S/P total left hip arthroplasty acute Syncope acute [facility] Work Phone: evaluation note* Diagnosis Onset Date Resolution Status Mitral valve replaced acute Preoperative clearance acute Primary osteoarthritis of left hip acute Tinea pedis acute Primary osteoarthritis of left hip acute Bradycardia acute Primary osteoarthritis of left hip acute S/P total left hip arthroplasty acute Syncope resolved S/P total left hip arthroplasty acute [facility] Work Phone: evaluation note* Diagnosis Onset Date Resolution Status Mitral valve replaced acute Preoperative clearance acute Primary osteoarthritis of left hip acute Tinea pedis acute Primary osteoarthritis of left hip acute Bradycardia acute Primary osteoarthritis of left hip acute S/P total left hip arthroplasty acute Syncope resolved Aftercare following left hip joint replacement surgery acute S/P total left hip arthroplasty acute [facility] Work Phone: Evaluation note* Diagnosis S/P hip replacement, right- Primary [...] Unspecified hearing loss documented in this encounter [facility] Work Phone: Evaluation note* Diagnosis Primary osteoarthritis of right hip Status post total hip replacement, right [facility] Diagnosis Encounter for gynecological examination without abnormal finding Encounter for Papanicolaou smear of cervix Breast cancer screening by mammogram Osteoporosis, post-menopausal (CMS/HCC) Senile osteoporosis [facility] Diagnosis Melanocytic nevus of trunk- Primary Benign neoplasm of skin of trunk, except scrotum Pilar cyst Lentigines History of nevus excision History of malignant melanoma of skin Personal history of malignant melanoma of skin Seborrheic keratosis Inflamed hair follicle Carbuncle and furuncle of unspecified site [facility]* Diagnosis Abrasion- Primary Abrasion or friction burn of other, multiple, and unspecified sites, without mention of infection [facility]* Diagnosis Lumbosacral radiculopathy Thoracic or lumbosacral neuritis or radiculitis, unspecified Disturbance of skin sensation Vitamin D deficiency Carpal tunnel syndrome of right wrist Carpal tunnel syndrome on left Carpal tunnel syndrome [facility]* Diagnosis Melanocytic nevus of trunk- Primary Benign neoplasm of skin of trunk, except scrotum History of malignant melanoma of skin Personal history of malignant melanoma of skin History of nevus excision Lentigines Seborrheic keratosis Capillary angioma Nevus, non-neoplastic documented in this [facility] Narrative - Reported* Type Description [...] HYSTEROSCOPY 2020 Hospitalization History SEE SURGICAL HX [facility] Other History general Narrative - Reported* Type [...] Re[placement 05/2023 Hospitalization History SEE SURGICAL HX [facility] Other Hospital Discharge instructionsAmbulatory Orders* Initiate Home [...] medication regimen Care to be managed by [facility] Work Phone: Summary Purpose Family [...] Documentation Amb Documentation Lump on Head 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 PROFESSOR LT 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 M25.552 - Pain in left hip Reason for Visit Right hip pain Sebaceous cyst Left hip pain Chief Complaint 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 PROFESSOR LT HIP PAIN M25.552 - Pain in left hip ear pressure Reason for Visit Primary osteoarthrit is of left hip Chief Complaint 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 PROFESSOR LT HIP PAIN M25.552 - Pain in [...] presurgical clearanc e/ lft total hip Dr Carlise Hip pain Pre op LTH H&P LTHA [...] presurgical clearanc e/ lft total hip Dr Adair Hip pain Pre op LTH H&P LTHA [...] Date Primary osteoarthritis of left hip Septe er 2023 2:35pm Bradycardia July 06, 2024 11 :13pm Primary osteoarthritis of left hip Octob 2023 11:13pm S/P total left hip arthroplasty [...] section and content) DATE CREATED AUTHOR 12/27/2021 [facility] DATE CREATED AUTHOR AUTHOR'S ORGANIZ ATION 03/14/2023 [facility] DATE CREATED AUTHOR AUTHOR'S ORGANIZ ATION 05/19/2023 [facility] DATE CREATED AUTHOR AUTHOR'S ORGANIZ ATION 08/10/2024 [facility] DATE CREATED AUTHOR AUTHOR'S ORGANIZ ATION 10/02/2024 [facility] DATE CREATED AUTHOR AUTHOR'S ORGANIZ ATION 10/29/2024 [facility] DATE CREATED AUTHOR AUTHOR'S ORGANIZ ATION 06/22/2025 [facility] d[facility] Specialists EPIC REASON FOR VISIT (unrecogniz ed section and content) Reason Comments Follow-up Reason Comments Annual Exam Specialty Diagnoses / Procedures Referred By Contac t Referred To Contact Cardiology Diagnoses Heart murmur S/P mitral valve repair Procedures Follow Up In Cardiology Yandy Hector MD Phone: tel: fax: Yandy Hector MD [address] [place] [address] [address] [place] [address] Phone: tel: fax: Referral ID Status Reason Start Date Expiration Date V isits Requested Visits Authorized [id number] Authorized 08/04/2023 08/03/2024 1 1 Reason Comments Gynecologic Exam Medicare yearly.LMP: Age 21 - only regular at age 13-18, was told genetic. Sent to [place] for laparoscopy - no more eggs- early [...] Active Joshua Phipps MD Attending Provider Active Marzipan Maker Relationship Specialty Start Date End Date Kallie Chase MD [address] [place] [address] PCP - General Family Medicine 02/24/23 Marzipan Maker Relationship Specialty Start Date End Date Kallie Chase MD [address] [place] [address] PCP - General Family Medicine 02/24/23 Team [...] 2024 Team Status: Inactive Member Role Status Williams Chase MD Primary Care Provider Active Start: [...] 2024 Team Status: Inactive Member Role Status Williams Chase MD Primary Care Provider Active Start: July 05, 2024 End: July 05, 2024 Vernell Alvarez II, MD Attending Provider Active Start: July 05, 2024 End: July 05, 2024 Team Status: Active Member Role Status Dates Jose Guthrie PA-C Emergency Provider Active Start: July 06, 2024 Kallie Chase MD Primary Care Provider Active Start: July 06, 2024 Pedro Quintero , Admit Provider, Atte nding Provider Active Start: [...] July 22, 2024 End: July 22, 2024 Marzipan Maker Relationship Specialty Start Date End Date Kallie Chase MD [address] [place] [id number] PCP - General Family Medicine 08/04/23 Team [...] August 18, 2024 End: August 18, 2024 Marzipan Maker Relationship Specialty Start Date End Date Kallie Chase MD [address] [place] [phone] PCP - General Family Medicine 02/24/23 Marzipan Maker Relationship Specialty Start Date End Date Kallie Chase MD [address] [facility] [phone] PCP - General Family Medicine 02/24/23 Marzipan Maker Relationship Specialty Start Date End Date Kallie Chase MD [address] [facility] [place] [address] PCP - General Family Medicine 02/24/23 Marzipan Maker Relationship Specialty Start Date End Date Kallie Chase MD [address] [facility] [place] [address] PCP - General Family Medicine 02/24/23 Marzipan Maker Relationship Specialty Start Date End Date Kallie Chase MD [address] [facility] [place] [phone] PCP - General Family Medicine 02/24/23 Marzipan Maker Relationship Specialty Start Date End Date Kallie Chase MD [address] [facility] [place] [phone] PCP - General Family Medicine 02/24/23 Marzipan Maker Relationship Specialty Start Date End Date Kallie Chase MD [address] [facility] [place] [address] PCP - General Family Medicine 02/24/23 Marzipan Maker Relationship Specialty Start Date End Date Kallie Chase MD [address] [place] [phone] PCP - General Family Medicine 02/24/23 Marzipan Maker Relationship Specialty Start Date End Date Kallie Chase MD [address] [place] [phone] PCP - General Family Medicine 02/24/23 Goals [...] BE BASED ON THE PRIMARY CLINICAL RECORDS. [facility]. provides no warranty or guarantee of the accuracy or completeness of information in this document.
== END 2025-06-23 11:06 | disposition home or self-care (01) ==
LOC: US 11:06
PROVIDERS: PCP Family Medicine; Visit Provider Family Medicine
DX: M79.605 Pain in left leg (principal)
CPT/HCPCS: 93971

== ENCOUNTER 2025-06-28 06:59 | Outpatient (RCR) | payer MEDICARE, SELFPAY | END 2025-08-17 08:42 | disposition home or self-care (01) | LOC: PT 06:59 | PROVIDERS: PCP Family Medicine; Visit Provider Family Medicine | DX: M79.605 Pain in left leg (principal) | CPT/HCPCS: 97035; 97110; 97112; 97140; 97163; G0283 ==

== ENCOUNTER 2025-08-23 10:16 | Outpatient (OUT) | payer MEDICARE, SELFPAY ==
--- OUTSIDE RECORDS SUMMARY | 2025-08-23 10:24 | XMS_ITS | CCD ---
Author Organization [facility] Care Team Providers Care Environment Coordinator Name Role Phone SELF, REFERRED Referring Unavailable MASROOR, CHELE Admitting Unavailable MASROOR, CHELE Attending Unavailable SELF, REFERRED Primary Care Unavailable KALLIE CHASE Primary Care Unavailable KALLIE CHASE Referring Unavailable MASROOR, CHELE Attending Unavailable MASROOR, CHELE Admitting Unavailable MASROOR, CHELE Surgeon Unavailable [place] Procedure Practitioner Unavailab le SELF, REFERRED Referring Unavailable ELTAHAWY, EHAB A Admitting Unavailable ELTAHAWY, EHAB A Attending Unavailable SELF, REFERRED Primary Care Unavailable Kallie Chase Unavailable Vernell Alvarez II Unavailable MD Kallie Chase Primary Care Provider MD Vernell Alvarez II Attending Provider [phone] DR KALLIE CHASE Primary Care Unavailable MISC, DR HAMMOND Admitting Unavailable MISC, DR HAMMOND Attending Unavailable CHASE, DR KALLIE Benítez Primary Care Unavailable ELTAHAWY, DR RODRIGUEZ Admitting Unavailable ELTAHAWY, DR RODRIGUEZ Attending Unavailable ELTAHAWY, DR RODRIGUEZ Consulting Unavailable ELTAHAWY, DR RODRIGUEZ Admitting Unavailable CHASE, DR KALLIE Benítez Primary Care Unavailable ELTAHAWY, DR RODRIGUEZ Attending Unavailable ELTAHAWY, DR RODRIGUEZ Consulting Unavailable CHASE, DR KALLIE Benítez Primary Care Unavailable ANGELITO, [...] KARASIK ., DR BAUMANN Attending Unavailabl e ABBAS, DR ASHFORD Consulting Unavailable SALVATORE, DR KALLIE Benítez Primary Care Unavailable SUREKHA, DR ASHFORD Admitting Unavailable SUREKHA, DR ASHFORD Attending Unavailable RAMANDEEP, DR JACK Mercer Consulting Unavailable BRENNA BROUSSARD Attending Unavailable MD Kallie Chase Primary Care Provider MD Joshua Phipps Attending Provider Jennifer Mccarthy Unavailable Kallie Chase MD Primary Care Provider MD Kallie Chase Primary Care Provider MD Vernell Alvarez II Attending Provider MD Kallie Chase Primary Care Provider MD Vernell Alvarez II Attending Provider CASSANDRA Guthrie Emergency Provider DO Pedro Quintero Admit Provider DO Pedro Quintero Attending Provider MD Shaun Yang Attending Provider [phone] Kallie Chase MD Primary Care Provider Kallie Chase MD Primary Care Provider [phone] Vernell Alvarez MD Attending Provider Jose Guthrie PA-C Emergency Provider [phone] Pedro Quintero DO Admit Provider Shaun Yang MD Attending Provider [phone] Kallie Chase Primary Care Unavailable Avelino Pena Attending Unavailable Avelino Pena Admitting Unavailable Kallie Chase MD Primary Care Provider CIEOL DAY Attending Unavailable BRAXTON JACOBSEN Attending Unavailable THADDEUS MCCLENDON Attending Unavailable DASIA PATRICIA Attending Unavailable DASIA PATRICIA Attending Unavailable Kallie Chase MD Primary Care Provider Kallie Chase MD Attending Provider Kallie Chase MD Primary Care Provider Kallie Chase MD Attending Provider Vernell Alvarez MD Attending Provider Vernell Alvarez II Admitting Unavailmaine Alvarze II, Vernell Huizar Attending Kallie Miller Primary Care Unavailable Kallie Chase Primary Care Unavailable Vernell Alvarez II Admitting Unavailmaine Alvarez II, Vernell Huizar Attending Kallie Miller Primary Care Unavailable Vernell Alvarez II Admitting Unavailmaine Alvarez II, Vernell Huizar Attending YANDY Coleman Attending Unavailable YANDY HECTOR Referring Unavailable KALLIE CHASE Primary Care Unavailable Kallie Chase MD Primary Care Provider Allergies Allergy ClassificationReported Allergen(s)Allergy TypeDate of OnsetReaction(s) FacilityCephalosporins (antibiotic) (2 sources)Cephalosporins (Antibiotic)Drug [id number], [facility] (7 sources)CephalexinDrug Ugbvqov89-68-8866vyg [facility] (20 sources)Cephalexin; Translations: [CEPHALEXIN]Drug Mcvbtlk34-66-6871Rzonb, [facility] HospitalComment on above:severe muscle weakness (20 sources)Cephalosporins (Antibiotic); Translations: [Cephalosporins]Allergy to luutrkfyv87-37-1584DnjpqRnnopgfgcC[facility] Medications Current Medications MedicationDrug Class(es)DatesSig (Normalized)Sig (Original)alendronic acid 35 mg oral tablet (16 sources)Bisphosphonate End: 48-06-1379ibst 1 tablet by mouth oncealendronate (Fosamax) 35 MG tablet TAKE ONE TABLET BY MOUTH ONCE WEELKY 09/14/2024 Discontinuedtake 1 tablet by mouth once dailyFosamax 70 MG 1 tablet 30 minutes before the first food, beverage or medicine of the day with plainwater Orally Activeascorbic acid 200 mg / beta carotene 1000 unt / cuprous oxide 2 mg / dl-alpha tocopheryl acetate 60unt / lutein 2 mg / sodium selenate 0.055 mg / zinc oxide 40 mg oral tablet (3 sources)Vitamin CStart: 48-67-4908idyq 1 tablet by mouth once daily atorvastatin 80 mg oral tablet (20 sources)HMG-CoA Reductase InhibitorStart: 08-04-2023 End: 44-16-8013zjjz 1 tablet by mouth once daily in the morningatorvastatin (Lipitor) 80 mg tablet Indications: Mixed hyperlipidemia Take 1 tablet (80 mg) by mouth once daily in the morning. 90 tablet 3 08/15/2025 08/15/2026 Activetake 1 tablet by mouth every twenty-four hoursLipitor 10 MG 1 tablet Orally Once a day Activebiotin 10 mg oral tablet (20 sources)Start: 05-05-2023 End: 24-83-9180zqxq 4 tablets by mouth once dailybiotin 10 MG tablet Indications: Lumbosacral radiculopathy , Disturbance of skin sensation , Carpal tunnel syndrome of right wrist , Carpal tunnel syndrome on left Take 4 tablets (40 mg) by mouth Daily 360 tablet 3 11/29/2024 11/29/2025 ActiveStart: 27-02-9755deky 1 tablet by mouth once dailytake 1 tablet by mouth twice daily biotin 10 mg tablet Take 1 tablet (10 mg) by mouth twice a day. Activetake 4 capsules by mouth every twenty-four hoursBiotin 1 MG 4 tablets Orally Once a day Activetake 4 tablets by mouth once dailyBiotin 1 MG 4 tablets Orally Once a day ActiveCalcium Citrate (1 source)take 1 tablet by mouth once dailyCALCIUM CITRATE ORAL Take 1 tablet by mouth once daily. Activecalcium citrate 1500 mg / cholecalciferol 200 unt oral tablet (20 sources)Vitamin DStart: 82-31-1847Rrrweha Citrate-Vitamin D 315-5 MG-MCG tablet 2 tablets 06/21/2024 ActiveStart: 01-66-8297vllm 2 tablets by mouth once dailycarboxymethylcellulose sodium 5 mg/ml ophthalmic solution (1 source)carboxymethylcellulose (Refresh Plus) 0.5 % ophthalmic solution Administer 1 drop into both eyes ifneeded for dry eyes. Activecelecoxib 200 mg oral capsule (15 sources)Nonsteroidal Anti-inflammatory DrugStart: 06-23-2024 End: 36-69-2559gehx 1 capsule by mouth once dailycelecoxib (CeleBREX) 200 mg capsule Take 1 capsule (200 mg) by mouth once daily. 06/23/2024 08/15/2025 Discontinued (Discontinued by another clinician)Start: 02-15-6905uihc 1 capsule by mouth twice dailyclindamycin 300 mg oral capsule (17 sources)Lincosamide AntibacterialStart: 06-22-2024 End: 90-68-0129anhg 2 capsules by mouth once at mealtimeclindamycin (Cleocin) 300 MG capsule TAKE 2 CAPSULES BY MOUTH 1 TIME FOR 1 DOSE 30-60 MINS BEFORE DE NTAL PROCEDURE WITH FOOD 06/22/2024 ActiveStart: 11-18-2023 End: 88-13-3021njmo 2 capsules by mouth once, then take 1 capsule by mouth once at mealtimeclindamycin (Cleocin) 300 MG capsule Indications: Primary osteoarthritis of right hip Take 2 capsules (600 mg) by mouth 1 time for 1 dose 2 tabs PO once 30-60 mins before dental procedure with food 2capsule 3 11/18/2023 11/18/2023 Active1 ml denosumab 60 mg/ml prefilled syringe (20 sources)RANK Ligand InhibitorStart: 87-06-0689soflsfjwoqqnv 2 mg oral tablet (20 sources)CorticosteroiddexAMETHasone (Decadron) 2 MG tablet 1 (one) time each day at the same time. Activedocosahexaenoic acid 120 mg / eicosapentaenoic acid 180 mg oral capsule (20 sources)omega-3 (Fish Oil) 1000 MG capsule 1 capsule 1 (one) time each day at the same time. Activeergocalciferol 1.25 mg oral capsule (20 sources)Provitamin D2 CompoundStart: 45-82-7781qtlu 1 capsule by mouth once dailyStart: 05-05-2023 End: 49-79-5465rdax 1 capsule by mouth every weekergocalciferol (Vitamin D-2) 1.25 MG (83452 UT) capsule Indications: Vitamin D deficiency Take 1 capsule (1.25 mg) by mouth 1 (one) time per week 12 capsule 3 11/29/2024 11/29/2025 ActiveStart: 29-07-5375jajx 1 capsule by mouth every weekergocalciferol (Vitamin D-2) 1.25 MG (92939 UT) capsule Take 1 capsule (50,000 Units) by mouth 1 (one) time per week. 08/12/2019 Activeferrous sulfate 159 mg extended release oral tablet (14 sources)Start: 50-02-4949cfbz 1 tablet by mouth once dailyfolic acid 1 mg oral tablet (20 sources)Start: 08-11-2017 End: 31-32-9231pmgm 1 tablet by mouth once daily in the morningfolic acid (Folvite) 1 mg tablet Take 1 tablet (1 mg) by mouth once daily in the morning. 08/12/2019 BlljexTakb-Khrbz-Va3-Vfw-Wot-Rhjr-St (Glucosamine Chondroitin Plus) 805-097-26-54 mg Capsule (20 sources)Start: 93-43-6231wszz 1 capsule by mouth once dailyStart: 08-11-2017 take 1 capsule by mouth once dqmywWkgd-Muhcw-Gj9-Yfq-Xtk-Pvgr-St (Glucosamine Chondroitin Plus) 388-200-30-54 mg Capsule Active 1 CAPPO Daily August 11, 2017 1:00am Complies with drug therapyStart: 44-56-2573pfhr 1 capsule by mouth once gfbuqLwhb-Arsew-Eb5-Kqj-Xou-Bsgz-St (Glucosamine Chondroitin Plus) 370-322-73-54 mg Capsule Active 1 CAPPO Daily August 11, 2017 12:00amStart: 06-04-3935zhox 1 capsule by mouth once tzjpmLatd-Iosil-Yb7-Nqk-Cfl-Fnsh-St (Glucosamine Chondroitin Plus) 454-728-83-54 mg Capsule Active 1 CAPPO Daily August 11, 2017 1:00amglucosamine sulfate 500 mg oral capsule (20 sources) End: 75-99-8881gviaypqghrq sulfate 500 mg capsule 1 (one) time each day at the same time. 08/15/2025 Discontinued (Discontinued by another clinician) Glucosamine Chondroitin Plus - (8 sources)Glucosamine Chondroitin Plus - as directed Orally ActiveKetoprofen (20 sources)Nonsteroidal Anti-inflammatory DrugStart: 11-29-2024 End: 01-20-2424Evmxnazunv 10 % cream Indications: Lumbosacral radiculopathy Apply 1 application topically every 8 (eight) hours 120 g 11/29/2024 11/29/2025 ActiveStart: 05-05-2024 End: 88-69-9190Wnjnjcsxkb 10 % cream Indications: Lumbosacral radiculopathy Apply 1 application topically every 8 (eight) hours 120 g 11 05/05/2024 11/29/2024 Discontinued (Reorder)Start: 05-05-2024 End: 45-59-1412Sszuwaqewh 10 % cream Indications: Lumbosacral radiculopathy Apply 1 application topically every 8 (eight) hours 120 g 11 05/05/2024 05/05/2025 ActiveStart: 05-05-2023 End: 96-99-9930Yfvfgeqrky 10 % cream Indications: Lumbosacral radiculopathy Apply 1 application topically every 8 (eight) hours. 120 g 11 05/05/2023 05/04/2024 ActiveL-METHYLFOLATE CALCIUM PO (20 sources)take 1 tablet by mouth in the morningL-METHYLFOLATE CALCIUM PO Take 1 tablet by mouth in the morning. Activetake 1 tablet by mouth in the morningL- METHYLFOLATE CALCIUM PO Take 1 tablet by mouth in the morning. 0 Active Q-Vtlzxlkkvycq-Mklyw-B12-B6 (Metanx) 3-90.314-2-35 MG capsule (20 sources)Start: 11-29-2024 End: 87-18-5103Q-Homgmrigyllh-Hxlfa-N09-B6 (Metanx) 3-90.314-2-35 MG capsule Indications: Lumbosacral radiculopathy , Disturbance of skin sensation Take 1 capsule by mouth Daily 90 capsule 3 11/29/2024 11/29/2025 ActiveStart: 05-05-2024 End: 35-24-0032E-Kqehxdtoppla-Ktvce-P75-B6 (Metanx) 3-90.314-2-35 MG capsule Indications: Lumbosacral radiculopathy , Disturbance of skin sensation Take 1 capsule by mouth Daily 90 capsule 3 05/05/2024 11/29/2024 Discontinued (Reorder) Start: 05-05-2024 End: 70-54-3802G-Ywtjzgckijol-Gesfi-O92-B6 (Metanx) 3-90.314-2-35 MG capsule Indications: Lumbosacral radiculopathy , Disturbance of skin sensation Take 1 capsule by mouth Daily 90 capsule 3 05/05/2024 05/05/2025 ActiveStart: 05-05-2023 End: 83-14-7946F-Kembfavrxspu-Vmqfp-N56-B6 (Metanx) 3-90.314-2-35 MG capsule Indications: Lumbosacral radiculopathy , Disturbance of skin sensation Take 1 capsule by mouth in the morning. 90 capsule 3 05/05/2023 05/04/2024 Active Fcrxtddai-D5-Jil97-Algal Oil (Metanx (Algal Oil)) 3 mg-35 mg-2 mg -90.314 mg capsule (3 sources)Start: 67-45-3685kvyq 1 capsule by mouth twice dailyStart: 03-25-2025 take 1 capsule by mouth twice oyzhoGtxihxnhk-E6-Rrk57-Algal Oil (Metanx (Algal Oil)) 3 mg-35 mg-2 mg -90.314 mg capsule Active 1 CAP PO Twice daily March 25, 2025 12:00am Complies with drug arnsjhsrgvbawogr-A3-rvN05-algal oil (Metanx, algal oil,) 3 mg-35 mg-2 mg -90.314 mg capsule (1 source)qxcvrcgtm-P0-wzC04-algal oil (Metanx, algal oil,) 3 mg-35 mg-2 mg - 90.314 mg capsule Take by mouth.Activemagnesium gluconate 550 mg oral tablet (9 sources)take 1 tablet by mouth every twenty-four hoursMagnesium 30 MG 1 tablet with a meal Orally Once a day Activemagnesium oxide 400 mg oral tablet (20 sources)Start: 05-05-2023 End: 18-89-9533torj 1 tablet by mouth once daily in the morningmagnesium oxide (Mag-Ox) 400 mg (241.3 mg magnesium) tablet Take 1 tablet by mouth once daily in the morning. 05/05/2023 ActiveMecobal-Levomefolat Ca-B6 Phos (Foltanx) 3-35-2 mg Tablet (20 sources)Start: 44-39-1202kgck 1 tablet by mouth once dailyStart: 08-11-2017 take 1 tablet by mouth once dailyMecobal-Levomefolat Ca-B6 Phos (Foltanx) 3-35-2 mg Tablet Active 1 TAB PO Daily August 11, 2017 1:00am Complies with drug therapyStart: 97-32-8639rpea 1 tablet by mouth once dailyMecobal-Levomefolat Ca- B6 Phos (Foltanx) 3-35-2 mg Tablet Active 1 TAB PO Daily August 11, 2017 1 2:00amStart: 84-11-7429qveu 1 tablet by mouth once dailyMecobal-Levomefolat Ca- B6 Phos (Foltanx) 3-35-2 mg Tablet Active 1 TAB PO Daily August 11, 2017 1 :00ammelatonin 2.5 mg chewable tablet (20 sources) End: 18-13-0966maehkbskz 2.5 mg tablet,chewable Chew if needed. 08/15/2025 Discontinued (Discontinued by another clinician)meloxicam 15 mg oral tablet (8 sources)Nonsteroidal Anti-inflammatory DrugStart: 86-79-8796imde 1 tablet by mouth once dailytake 1 tablet by mouth every twenty-four hoursMeloxicam 15 MG 1 tablet Orally Once a day ActiveMetanx 3-90.314-2-35 MG (9 sources)Metanx 3-90.314-2-35 MG as directed Orally ActiveMisc Natural Products (YumVs Beet Root-Tart Diallo) 250-0.5 MG chewable tablet (20 sources)Misc Natural Products (YumVs Beet Root-Tart Diallo) 250-0.5 MG chewable tablet Chew. ActiveMisc Natural Products (YumVs Beet Root-Tart Diallo) 250-0.5 MG chewable tablet Chew. 0 ActiveMultiple Vitamins-Minerals (Ocular Vitamins) tablet (13 sources)Multiple Vitamins-Minerals (Ocular Vitamins) tablet take 2 tablet by oral route Activenaproxen 250 mg oral tablet (20 sources)Nonsteroidal Anti-inflammatory Drugnaproxen (Naprosyn) 250 MG tablet Take by mouth. ActiveOmega 3 (8 sources)Berkley 3 ActiveOmega 3,6,9 Combination No.7 (Berkley Dha) 92 mg (43 mg- 22 gi-13oa-60dt) Tablet,Chewable (20 sources)Start: 50-39-2813gaul 1 tablet by mouth once dailyStart: 08-11-2017 take 1 tablet by mouth once dailyOmega 3,6,9 Combination No.7 (Berkley Dha) 92 mg (43 mg-22 cz-55in-80gb) Tablet,Chewable Active 1 TABPO Daily August 11, 2017 1:00am Complies with drug therapyStart: 33-81-7132dova 1 tablet by mouth once dailyOmega 3,6,9 Combination No.7 (Berkley Dha) 92 mg (43 mg-22 rs-53bv-91sw) Tablet,Chewable Active 1 TABPO Daily August 11, 2017 12:00amStart: 08-11-2017 take 1 tablet by mouth once dailyOmega 3,6,9 Combination No.7 (Berkley Dha) 92 mg (43 mg-22 sn-62fm-30xd) Tablet,Chewable Active 1 TABPO Daily August 11, 2017 1:00amomega-3 acid ethyl esters (senior care) 1000 mg oral capsule (2 sources)omega-3 acid ethyl esters (Lovaza) 1 gram capsule Take 2 capsules (2 g) by mouth twice a day. ActiveRed Beet Root-Sour Diallo Ext (9 sources)Start: 41-56-4597bqhq 1 tablet by mouth once dailyRed Beet Root-Sour Diallo Ext Active 1 TAB PO Daily June 21, 2024 12:00amStart: 06-21-2024 Red Beet Root-Sour Diallo Ext Active TAB PO June 21, 2024 12:00amRed Beet Root-Sour Diallo Ext 250-0.5 mg tablet,chewable (2 sources)Start: 11-77-6543Jbg Beet Root-Sour Diallo Ext 250-0.5 mg tablet,chewable Active 1 TAB PO Daily June 201:00pmRed Beet-Sour Diallo Extract 250-0.5 mg tablet,chewable (3 sources)Start: 65-64-3505Pdbfe: 72-08-7772Zke Beet-Sour Diallo Extract 250- 0.5 mg tablet,chewable Active 1 TAB PO Daily June 21, 2024 12:00am Complies with drug therapysodium fluoride 0.011 mg/mg oral gel (20 sources)fluoride, sodium, 1.1 % gel USE DIRECTED TWICE A DAY Active fluoride, sodium, 1.1 % gel USE DIRECTED TWICE A DAY ActivetiZANidine 4 mg oral tablet (20 sources)Central alpha-2 Adrenergic Agonisttake 1 tablet by mouth at bedtime tiZANidine (Zanaflex) 4 MG tablet TAKE ONE-HALF TO ONE TABLET BY MOUTH AT BEDTIME ActiveTurmeric extract (20 sources)Start: 16-93-6825tbge 1 capsule by mouth once dailyStart: 06-21-2024 take 1 capsule by mouth once dailyTurmeric 400 mg capsule Active 1 MG PO Daily June 21, 2024 12:00am Complies with drug therapyStart: 95-58-2179anwx 1 capsule by mouth once dailyTurmeric 400 mg capsule Active 1 MG PO Daily June 20, 2024 11:00pmStart: 21-56-2561pogl 1 mg by mouth once daily Turmeric Active 1 MG PO Daily June 21, 2024 12:00amStart: 06-21-2024 Turmeric Active MG PO June 21, 2024 12:00am End: 01-92-4515ntji 1 capsule by mouth twice dailyturmeric 400 mg capsule Take 1 capsule by mouth twice a day. 08/15/2025 Discontinued (Discontinued by another clinician)take 1 capsule by mouth twice dailyturmeric 400 mg capsule Take 1 capsule by mouth twice a day. ActiveTurmeric (QC Tumeric Complex) 500 MG capsule 1 (one) time each day at the same time. ActiveTurmeric (QC Tumeric Complex) 500 MG capsule 1 (one) time each day at the same time. 0 ActiveTurmeric Active valACYclovir 1000 mg oral tablet (20 sources)Herpesvirus Nucleoside Analog DNA Polymerase Inhibitor, Herpes Simplex Virus Nucleoside Analog DNA Polymerase Inhibitor, Herpes Zoster Virus Nucleoside Analog DNA Polymerase InhibitorStart: 56-68-3863dcyTIUujzule (Valtrex) 1 g tablet Indications: Herpes simplex labialis Take 2 tablets twice a day x1 day at first start of outbreak 4 tablet 04/14/2023 ActiveVit A,C And J-Mgawgx-Kktthdmv (Eye Health Plus Lutein) 1,000 unit-200 mg-60 unit-2 mg Tablet (19 sources)Start: 38-41-9497zpam 1 tablet by mouth once dailyVit A,C And D-Ddihci-Otlxnhyu (Eye Health Plus Lutein) 1,000 unit-200 mg-60 unit-2 mg Tablet Active1 TAB PO Daily August 11, 2017 12:00amStart: 05-04-2844tlic 1 tablet by mouth once dailyVit A,C And D-Nceacp-Hikotwrx (Eye Health Plus Lutein) 1,000 unit-200 mg-60 unit-2 mg Tablet Active1 TAB PO Daily August 11, 2017 1:00am vitamin e 100 unt oral capsule (20 sources)Start: 11-29-2024 End: 69-90-8104euse 1 capsule by mouth once dailyVitamin E 45 MG (100 UNIT) capsule Indications: Disturbance of skin sensation Take 1 capsule by mouth Daily 90 capsule 2 11/29/2024 11/29/2025 ActiveStart: 57-62-4239smah 45 mg by mouth once dailyVitamin E Active 45 MG PO Daily June 21, 2024 12:00amStart: 01-26-2024 End: 97-55-7753girs 1 capsule by mouth in the morningVitamin E 45 MG (100 UNIT) capsule TAKE 1 CAPSULE (100 UNITS) BY MOUTH IN THE MORNING. 01/26/2024 Discontinued (Reorder)Start: 05-05-2023 End: 31-93-4874zrew 1 capsule by mouth in the morningalpha tocopherol (Vitamin E) 100 units capsule Indications: Memory loss Take 1 capsule (100 Units) by mouth in the morning. 90 capsule 3 05/05/2023 05/04/2024 Activetake 1 capsule by mouth once dailyalpha tocopherol (Vitamin E) 670 mg (1,000 unit) capsule Take 1 capsule (1,000 Units) by mouth oncedaily. ActiveVitamin E 1000 UNIT as directed Orally ActiveVitamin E 100 unit capsule (5 sources)Start: 31-85-7627Coorg: 47-24-8041Rkjvugj E 100 unit capsule Active 45 MG PO Daily June 21, 2024 12:00am Complies with drug therapyStart: 10-33-3348Swnsonj E 100 unit capsule Active 45 MG PO Daily June 20, 2024 11:00pmVitamin E 1000 UNIT (7 sources)Vitamin E 1000 UNIT as directed Orally Activevitamin k2 0.1 mg oral capsule (20 sources)Start: 36-28-7212vqqk 1 capsule by mouth once dailyvitamin K2 100 mcg capsule Take 1 capsule (100 mcg) by mouth once daily. 05/14/2024 ActiveZinc (14 sources)Start: 62-97-4376nmhx 1 tablet by mouth three times weeklyStart: 35-79-6903yvct 1 tablet by mouth three times weeklyZinc 50 mg tablet Active 50 MG PO 3 Times a week June 21, 2024 12:00am Complies with drug therapy Start: 03-57-5204qwbp 1 tablet by mouth three times weeklyZinc 50 mg tablet Active 50 MG PO 3 Times a week June 20, 2024 11:00pmStart: 13-85-0898cwec 50 mg by mouth three times weeklyZinc Active 50 MG PO 3 Times a week June 21, 2024 12:00amzinc gluconate 50 mg oral tablet (20 sources)take 1 tablet by mouth once daily in the morningzinc gluconate 50 mg tablet Take 1 tablet by mouth once daily in the morning. Active Completed/Discontinued Medications MedicationDrug Class(es)DatesSig (Normalized)Sig (Original)acetaminophen 500 mg oral tablet (13 sources)Start: 06-23-2024 End: 07-15-9672dkem 2 tablets by mouth every eight hoursAcetaminophen 500 mg tablet Discontinued 1000 MG PO Q8H 180 June 23, 2024 12:00am August 18, 2024 12:10pm DO NOT RECONCILE UNTIL DOS:07/05/2024 MED TO BEDStart: 05-73-5488waim 1000 mg by mouth every eight hoursAcetaminophen Active 1000 MG PO Q8H 180 June 23, 2024 12:00am DO NOT RECONCILE UNTIL DOS:07/05/2024 MED TO BEDacetaminophen 325 mg / HYDROcodone bitartrate 5 mg oral tablet (8 sources)Opioid AgonistStart: 07-07-2024 End: 53-10-4573kpmc 1 tablet by mouth every six hours as needed for pain Hydrocodone-Acetaminophen 5-325 mg tablet Discontinued 1 TAB PO Every 6 hours as needed for pain 146 July 07, 2024 July 21, 2024 1:32pmaspirin 81 mg delayed release oral tablet (20 sources)Platelet Aggregation Inhibitor, Nonsteroidal Anti-inflammatory Drug Start: 06-23-2024 End: 73-21-4483uvip 1 tablet by mouth twice dailyAspirin 81 mg tablet,delayed release (DR/EC) Discontinued 81 MG PO Twice daily 70 35 June 23, 2024 12:00am July 06, 2024 6:11pm DO NOT RECONCILE UNTIL DOS:07/05/2024 MED TO BED Start: 30-64-5743elxj 1 tablet by mouth once dailyStart: 45-64-3779uvvq 1 tablet by mouth once dailyAspirin (Aspir-81) 81 mg Tablet,Delayed Release (Dr/Ec) Active 1 TAB PO Daily August 11, 2017 1:00amtake 2 tablets by mouth once daily in the morningaspirin 81 mg EC tablet Take 2 tablets (162 mg) by mouth once daily in the morning. ActiveASPIRIN 81 MG chewable tablet 1 (one) time each day at the same time. Activeazithromycin 250 mg oral tablet (17 sources)Macrolide AntimicrobialStart: 04-02-2024 End: 57-60-2455Jrqnqkfkyxqf 250 mg tablet Discontinued 0 PO .COMPLEX April 02, 2024 12:00am May 14, 2024 8:41am For 250 mg dose pack: take 500 mg today (day 1), then 250 mg for 4 days (days 2-5) POStart: 04-02-2024 End: 80-79-3993Gmrhbowzkbfj Discontinued 0 PO .COMPLEX April 02, 2024 12:00am May 14, 2024 8:41am For 250 mg dose pack: take 500 mg today (day 1), then 250 mg for 4 days (days 2-5) POStart: 07-65-3914Zfrxyrshffwk Active 0 PO .COMPLEX April 02, 2024 12:00am For 250 mg dose pack: take 500 mg today(day 1), then 250 mg for 4 days (days 2-5) POBoost Protein Shakes (15 sources)Start: 04-30-2024 End: 72-87-7769Nhpuw Protein Shakes Discontinued 0 PO Twice daily April 29, 2024 11:00pm April 30, 2024 8:50am 8 Fl Ounces orally twice daily; Take 4 weeks before surgery, and 4 weeks after surgery Chocolate FlavorStart: 04-30-2024 End: 50-71-8190Lkktk Protein Shakes Discontinued 0 PO Twice daily April 30, 2024 12:00am April 30, 2024 9:50am 8 Fl Ounces orally twice daily; Take 4 weeks before surgery, and 4 weeks after surgery Chocolate Flavorcefadroxil 500 mg oral capsule (13 sources)Cephalosporin AntibacterialStart: 06-23-2024 End: 89-07-3984rmyv 1 capsule by mouth every twelve hoursCefadroxil 500 mg capsule Discontinued 500 MG PO Q12H 14 7 June 23, 2024 12:00am July 21, 2024 1:32pm DO NOT RECONCILE UNTIL DOS:07/05/2024 MED TO BEDcholecalciferol 0.125 mg oral tablet (20 sources)Vitamin DStart: 08-11-2017 End: 29-20-7927aprx 1 tablet by mouth every weekCholecalciferol (Vitamin D3) (Vitamin D3) 5,000 unit Tablet Discontinued 1 TAB PO every week August 11, 2017 1:00am June 21, 2024 8:59amdocusate sodium 50 mg / sennosides, senior care 8.6 mg oral tablet (13 sources)Start: 06-23-2024 End: 61-77-3851jzzu 2 tablets by mouth once dailySennosides-Docusate Sodium (Senokot-S) 8.6-50 mg tablet Discontinued 2 TAB PO daily 60 30 2023 12:00am August 18, 2024 12:10pm DO NOT RECONCILE UNTIL DOS:07/05/2024 MED TO BEDFood Supplemt, Lactose-Reduced (Boost High Protein) 0.08 gram- 1.1 kcal/mL liquid (15 sources)Start: 05-03-2024 End: 20-46-2056Zbvb Supplemt, Lactose-Reduced (Boost High Protein) 0.08 gram- 1.1 kcal/mL liquid Discontinued 1 EACH PO Twice daily 2844 56 May 02, 2024 11:00pm May 14, 2024 7:42am Chocolate FlavorStart: 05-03-2024 End: 54-87-2469Toei Supplemt, Lactose-Reduced (Boost High Protein) 0.08 gram- 1.1 kcal/mL liquid Discontinued 1 EACH PO Twice daily 2844 56 May 03, 2024 12:00am May 14, 2024 8:42am Chocolate Flavorlevothyroxine sodium 0.05 mg oral tablet (20 sources)l-ThyroxineStart: 06-23-2024 End: 58-50-7803qobn 1 tablet by mouth once dailyLevothyroxine 50 mcg tablet Discontinued 0 .ROUTE .COMPLEX 90 January 03, 2025 9:06am Fannie 23rd, 2025 9:22am TAKE 1 TABLET BY MOUTH EVERY DAYStart: 08-11-2017 End: 97-92-3979shxw 1 tablet by mouth once daily in the morninglevothyroxine (Synthroid, Levoxyl) 50 mcg tablet Take 1 tablet (50 mcg) by mouth once daily in the morning. 09/09/2019 Activetake 1 tablet by mouth once dailyLevothyroxine Sodium 50 MCG TAKE ONE TABLET BY MOUTH ONCE DAILY for 90 days Activeondansetron 4 mg oral tablet (13 sources)Serotonin-3 Receptor AntagonistStart: 06-23-2024 End: 50-42-6492xyfe 1 tablet by mouth every eight hours as needed for nausea Ondansetron Hcl 4 mg tablet Discontinued 4 MG PO Q8H as needed for Nausea June 23, 2024 12:00am July 21, 2024 1:32pm DO NOT RECONCILE UNTIL DOS:07/05/2024 MED TO BEDoxyCODONE hydrochloride 5 mg oral tablet (13 sources)Opioid AgonistStart: 06-23-2024 End: 48-06-6397kkmz 1 tablet by mouth every four hours as needed for pain Oxycodone 5 mg tablet Discontinued 5 MG PO Q4H as needed for Pain 40 June 23, 20242023 2:35pm DO NOT RECONCILE UNTIL DOS:07/05/2024 MED TO BEDpantoprazole 20 mg delayed release oral tablet (13 sources)Proton Pump InhibitorStart: 06-23-2024 End: 41-42-8904huxx 1 tablet by mouth once dailyPantoprazole (Protonix) 20 mg tablet,delayed release (DR/EC) Discontinued 20 MG PO daily 35 35 June 23, 2024 12:00am August 18, 2024 12:10pm DO NOT RECONCILE UNTIL DOS:07/05/2024 MED TO BEDpolyethylene glycol 3350 36121 mg powder for oral solution (13 sources)Osmotic LaxativeStart: 06-23-2024 End: 50-77-8334Rvjnnfbhqpep Glycol 3350 (Miralax) 17 gram/dose powder Discontinued 17 GM PO daily 7 June 23, 2024 12:00am August 18, 2024 12:10pm 1 packed mixed with 8 ounces of fluid. DO NOT RECONCILEUNTIL DOS:07/05/2024 MED TO BEDtraMADol hydrochloride 50 mg oral tablet (13 sources)Opioid AgonistStart: 06-23-2024 End: 22-45-0526uzzt 1 tablet by mouth every six hours as needed for painTramadol 50 mg tablet Discontinued 50 MG PO Q6H as needed for Pain 40 7 June 23, 2024 12:00am August 18, 2024 12:10pm DO NOT RECONCILE UNTIL DOS:07/05/2024 MED TO BED Problems Active Problems Problem ClassificationProblemDateDocumented DateEpisodic/ChronicAbdominal pain (8 sources)Pelvic and perineal pain; Translations: [Left lower quadrant pain] Onset: 87-81-3609TlfsngxyBgidt bronchitis (4 sources)Acute bronchitis; Translations: [Acute bronchitis due to other specified organisms]EpisodicAdministrative/social admission (4 sources)Informing health primary care physician of test result; Translations: [Person consulting for explanationof examination or test findings]Episodic Cardiac dysrhythmias (20 sources)Bradycardia; Translations: [Bradycardia, unspecified]Onset: 053196-39-1433OjcroicjXaqhppv obstructive pulmonary disease and bronchiectasis (4 sources)Bronchitis; Translations: [Bronchitis, not specified as acute or chronic]EpisodicDeficiency and other anemia (4 sources)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 loss; Translations: [Iron deficiency anemia secondary to blood loss (chronic)]Onset: 87-23-5568WuvgnzxTncukwvnp of lipid metabolism (20 sources)Hyperlipidemia, unspecified; Translations: [Mixed hyperlipidemia] Onset: 10-77-4369OztixmzJhqdmhlz (16 sources)Open-angle glaucoma of left eye; Translations: [Primary open-angle glaucoma, left eye, mild stage]Onset: 878605-76-1234NqpshmrAdwaljnx; including migraine (20 sources)Tension-type headache; Translations: [Tension-type headache, unspecified, not intractable]Onset: 932016-76-3583MupssffMshmmjpz; including migraine (4 sources)Tension-type headache; Translations: [Tension-type headache, unspecified, intractable]EpisodicHeart valve disorders (20 sources)Nonrheumatic mitral (valve) insufficiency; Translations: [Mitral valve regurgitation]Onset: 87-61-5517CommlimUloea disorders and dislocations; trauma-related (4 sources)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; Translations: [Traumatic arthropathy, left hip]Onset: 96-40-5237JmlzyjyTqyxkdm (20 sources)Tinea pedis; Translations: [Tinea pedis]05-65-6944Gxxjeyto Nutritional deficiencies (2 sources)Vitamin D deficiency; Translations: [Vitamin D deficiency, unspecified]94-75-6026GxrsnarMjhqelossvobas (20 sources)Osteoarthritis of right hip joint; Translations: [Unilateral primary osteoarthritis, right hip]Onset: 22-49-9190MbayivcMfcxiggyoqcw (10 sources)Senile osteoporosis; Translations: [Age-related osteoporosis without current pathological fracture]ChronicOther aftercare (8 sources)Patient encounter status; Translations: [Aftercare following joint replacement surgery]97-15-6397JnzrbkvSiqvo aftercare (6 sources)Aftercare following joint replacement surgery; Translations: [Aftercare following joint replacement]Onset: 207170-75-1850HqgeuxuUnbxs aftercare (4 sources)History and physical examination, follow-up; Translations: [Encounter for follow-up examination after completed treatment for conditions other than malignant neoplasm]EpisodicOther and unspecified benign neoplasm (4 sources)Melanocytic nevus of trunk; Translations: [Melanocytic nevi of trunk] 90-93-0797EpivexirLtpas circulatory disease (4 sources)Elevated blood-pressure reading without diagnosis of hypertension; Translations: [Elevated blood-pressure reading, without diagnosis of hypertension]EpisodicOther circulatory disease (2 sources)Spider nevus; Translations: [Nevus, non-neoplastic]41-28-3177Pooxwlcz Other connective tissue disease (20 sources)History of total hip arthroplasty; Translations: [Presence of right artificial hip joint]Onset: 053792-57-1522LgaqjulYdekn connective tissue disease (13 sources)Presence of left artificial hip joint; Translations: [Hip joint replacement]Onset: 262895-27-6318PhqggviNzqxq connective tissue disease (2 sources)History of repair of hip joint; Translations: [Presence of right artificial hip joint]Onset: 28-83-593025734236-17-9299GzcbnmnXdtab connective tissue disease (3 sources)Olecranon bursitis; Translations: [Olecranon bursitis, right elbow] EpisodicOther connective tissue disease (1 source)Olecranon bursitis, right elbow; Translations: [Olecranon bursitis, right elbow]EpisodicOther connective tissue disease (5 sources)Swelling of left lower limb; Translations: [Other specified soft tissue disorders]37-81-1183LupvzvstQqyey connective tissue disease (2 sources)Other specified soft tissue disorders; Translations: [Swelling of limb]90-96-5150FjvvxlglYcemq connective tissue disease (6 sources)Pain in left lower limb; Translations: [Pain in left leg]06-23-2025 EpisodicOther ear and sense organ disorders (20 sources)Mixed conductive and sensorineural hearing loss, bilateral; Translations: [Mixed conductive and sensorineural hearing loss, bilateral]Onset: 208865-96-1677RgntlhaXklkx ear and sense organ disorders (3 sources)Hearing loss; Translations: [Unspecified hearing loss, unspecified ear]Onset: 461626-83-3020CdvmrmfOzozm ear and sense organ disorders (1 source)Impacted cerumen, right earEpisodicOther ear and sense organ disorders (3 sources)Acute non-infective otitis externa; Translations: [Unspecified acute noninfective otitis externa, unspecified ear]EpisodicOther ear and sense organ disorders (1 source)Unspecified acute noninfective otitis externa, unspecified ear; Translations: [Unspecified acute noninfective otitis externa, unspecified ear] EpisodicOther ear and sense organ disorders (4 sources)Impacted cerumen in right ear; Translations: [Impacted cerumen, right ear]35-57-8832IcosnhtiHovko female genital disorders (4 sources)Endometrial hyperplasia; Translations: [Endometrial hyperplasia, unspecified]ChronicOther female genital disorders (3 sources)Malposition of uterus; Translations: [Malposition of uterus]Episodic Other female genital disorders (1 source)Malposition of uterus; Translations: [Malposition of uterus]Episodic Other injuries and conditions due to external causes (1 source)Foreign body in left ear, initial encounterEpisodicOther injuries and conditions due to external causes (2 sources)Abrasion; Translations: [Other injury of unspecified body region, initial encounter]89-50-5086UmkkxdnjPghuu nervous system disorders (20 sources)Carpal tunnel syndrome of right wrist; Translations: [Carpal tunnel syndrome, right upper limb]Onset: 08-27-2021 Resolved: 549518-27-4800ZfsxssmExamt nervous system disorders (20 sources)Disorder of right femoral nerve; Translations: [Lesion of femoral nerve, right lower limb]Onset: 810385-56-3617SrbbkcdSlsbv nervous system disorders (13 sources)Bilateral carpal tunnel syndrome; Translations: [Carpal tunnel syndrome, bilateral upper limbs]Onset: 469124-41-4269SpciznmBgsfr nervous system disorders (2 sources)Carpal tunnel syndrome of left wrist; Translations: [Carpal tunnel syndrome, left upper limb]36-54-5508VatfvryMbsnx nervous system disorders (20 sources)Hip pain; Translations: [Other acute postprocedural pain]Onset: 675216-34-1685GtpspjslFodzz non-traumatic joint disorders (4 sources)Pain in right hip; Translations: [Pain in joint, pelvic region and thigh]EpisodicOther non-traumatic joint disorders (2 sources)Pain in left hip; Translations: [Pain in joint, pelvic region and thigh]31-55-6133RphxzysjXgteo nutritional; endocrine; and metabolic disorders (3 sources)Body mass index less than 20; Translations: [Body mass index (BMI) 19.9 or less, adult]EpisodicOther nutritional; endocrine; and metabolic disorders (3 sources)Body mass index (BMI) 19.9 or less, adult; Translations: [Body mass index (BMI) 19 or less, adult]Onset: 81-64-4972AiehvbjjAguqc nutritional; endocrine; and metabolic disorders (4 sources)Decreased body mass index; Translations: [Body mass index (BMI) 19.9 or less, adult]Onset: 221566-91-6035TxjssuvzLrpvj screening for suspected conditions (not mental disorders or infectious disease) (9 sources)Endometrium thickened; Translations: [Abnormal findings on diagnostic imaging of other specified body structures]ChronicOther skin disorders (20 sources)Sebaceous cyst of skin; Translations: [Sebaceous cyst]Onset: 063438-67-9748FvszokoaBxyzl skin disorders (3 sources)Sebaceous cyst; Translations: [Sebaceous cyst]62-19-4474EouxgucrNggib skin disorders (2 sources)Trichilemmal cyst; Translations: [Pilar cyst]46-28-3057SwyoewimOxfqa skin disorders (4 sources)Lentiginosis; Translations: [Other melanin hyperpigmentation] 08-31-0866XxznssxhDguuz skin disorders (4 sources)Seborrheic keratosis; Translations: [Other seborrheic keratosis] 58-28-3408ZtlgjxpyGkyvs skin disorders (2 sources)Folliculitis; Translations: [Follicular disorder, unspecified] 38-83-5158MrtfqrjaCkfqr skin disorders (4 sources)Actinic keratosis; Translations: [Actinic keratosis]03-30-2025 EpisodicOther upper respiratory infections (20 sources)Acute maxillary sinusitis; Translations: [Acute recurrent maxillary sinusitis]Onset: 83-08-1369XochqtrpOghgkb media and related conditions (4 sources)Non-suppurative otitis media; Translations: [Unspecified nonsuppurative otitis media, bilateral]EpisodicPeripheral and visceral atherosclerosis (4 sources)Peripheral vascular disease, unspecified; Translations: [PERIPHERAL VASCULAR DISEASE UNS]Onset: 49-70-2662OixnfgpNmqpdugr codes; unclassified (4 sources)Postprocedural state finding; Translations: [Other specified postprocedural states]EpisodicResidual codes; unclassified (4 sources)Postmenopausal state; Translations: [Asymptomatic menopausal state] EpisodicResidual codes; unclassified (20 sources)History of repair of mitral valve; Translations: [Other specified postprocedural states]Onset: 039091-00-3181XjycapoiZwutzxqi codes; unclassified (2 sources)Other specified postprocedural states; Translations: [Other specified postprocedural states]Onset: 48-92-6195ObnvxidjEcyxficx codes; unclassified (2 sources)Other specified health status; Translations: [Other specified health status]Onset: 02-02-5917PwppuoqkUoyjquyh codes; unclassified (2 sources)Never smoked tobacco; Translations: [Other specified health status] Onset: 364886-12-4912YpkmszvcKxxbooa detachments; defects; vascular occlusion; and retinopathy (20 sources)Exudative age-related macular degeneration; Translations: [Exudative age-related macular degeneration, bilateral, with active choroidal neovascularization]Onset: 236912-05-6637XappaqiOdkg and subcutaneous tissue infections (4 sources)Localized infection of skin AND/OR subcutaneous tissue; Translations: [Local infection of the skin and subcutaneous tissue, unspecified]Episodic Syncope (15 sources)Syncope; Translations: [Syncope and collapse]22-04-1395Eionkprb Thyroid disorders (20 sources)Autoimmune thyroiditis; Translations: [Autoimmune thyroiditis]Onset: 20-69-7344LxqpmhpAkjcr infection (5 sources)Disease caused by 2019-nCoV; Translations: [COVID-19] Past or Other Problems Problem ClassificationProblemDateDocumented DateEpisodic/ChronicHeart valve disorders (20 sources)O/E - cardiac murmur; Translations: [Cardiac murmur, unspecified] Onset: 670833-45-7512KkholmmpEzcvvclleqtbp and screening for infectious disease (1 source)Encounter for screening for human papillomavirus (HPV); Translations: [ENC SCREENING HUMAN PAPILLOMAVIRUS]Onset: 54-56-0304DlqbkfhlRawlnja and fatigue (20 sources)Weakness; Translations: [Asthenia]Onset: 391916-82-1658 EpisodicMelanomas of skin (20 sources)History of malignant melanoma of the skin; Translations: [Personal history of malignant melanoma ofskin]Onset: 259476-66-5342GjhalcnhVfsx wounds of extremities (4 sources)Open wound of hand except fingers with complication; Translations: [Laceration with foreign body ofright hand, initial encounter]Onset: 05-02-2017 EpisodicOther aftercare (3 sources)Post-discharge follow-up; Translations: [Encounter for follow-up examination after completed treatment for conditions other than malignant neoplasm]Onset: 902441-50-9188TcjmzlefJahlg and unspecified benign neoplasm (20 sources)Benign neoplasm of skin; Translations: [Other benign neoplasm of skin, unspecified]Onset: 503062-96-4231PspuoehzVwjgp ear and sense organ disorders (20 sources)Mixed conductive AND sensorineural hearing loss; Translations: [Mixed conductive and sensorineural hearing loss, unspecified]Onset: 02-24-2023 Resolved: 872200-69-9789SmbmsdiMmwgh ear and sense organ disorders (20 sources)Tinnitus; Translations: [Tinnitus, unspecified ear]Onset: 02-18-2023 50-21-8841OvfblawsRxzrr female genital disorders (3 sources)Noninflammatory disorder of the vagina; Translations: [Other specified noninflammatory disorders ofvagina] Resolved: 11-32-7189HqpkpijxMpvgp female genital disorders (1 source)Other specified noninflammatory disorders of vagina; Translations: [Other specified noninflammatorydisorders of vagina] Resolved: 40-32-9424ZiftmkecSgseq gastrointestinal disorders (1 source)Other intra-abdominal and pelvic swelling, mass and lump; Translations: [OTH INTRA-ABD PELV SWELL MASS LUMP]Onset: 54-92-2122AaqdsrapWnzev nervous system disorders (20 sources)Skin sensation disturbance; Translations: [Unspecified disturbances of skin sensation]Onset: 049328-49-7075DgcnvmysFpffw non-traumatic joint disorders (20 sources)Arthralgia of the pelvic region and thigh; Translations: [Pain in unspecified hip]Onset: 852704-29-1875BdwbwwcrKgbdu screening for suspected conditions (not mental disorders or infectious disease) (20 sources)Patient encounter status; Translations: [Encounter for screening for malignant neoplasm of colon]Onset: 07-14-2017 Resolved: 579276-51-6219ZrocijwxXkmkinm on above:Problem List clean-up per request of Phys. EHR CmteOther skin disorders (4 sources)Other seborrheic keratosis; Translations: [Seborrheic keratosis] Onset: 18-47-9906IomxaxcvXsvlixph codes; unclassified (4 sources)Family history of breast cancer; Translations: [Family history of malignant neoplasm of breast]Onset: 47-79-5597CgbuvrhhCmqiipev codes; unclassified (20 sources)Insomnia; Translations: [Insomnia, unspecified]Onset: 08-14-2021 25-13-9111UfzvmpvdIbkehddp codes; unclassified (20 sources)History of hernia repair; Translations: [Other specified postprocedural states]Onset: 411015-33-3028EgkridrfCcjfrisvdsc; intervertebral disc disorders; other back problems (20 sources)Radiculopathy, lumbosacral region; Translations: [Lumbar radiculopathy]Onset: 125544-93-0688CezxlejsBndkgrjeqgoj (2 sources)Onset: 08-09-2024 Resolved: 857456-18-7771Tokkn infection (20 sources)Herpesviral vesicular dermatitis; Translations: [Herpesviral vesicular dermatitis]Onset: 655995-34-1264Sgqizuaz Results Test NameValueInterpretationReference RangeFacilityECG 12 [place] 08-15-2025 [facility] Work Phone: Sinus bradycardia 51 bpm OK interval 174 ms QRS duration 80 ms QTc 405 ms left atrial enlargement. Compared to previous EKG from 2023, heart rate has decreased from the 60s to low 50s.CPACSUnKettering Health [facility] Work Phone: X-ray reportOrdered By: Daniel Rudolph on 07-01-2025 [facility] report[facility] [address] [place] [address] XRay Report Signed Patient: Thiago Sabillon MR#: [id number] : 1950 Acct:[id number] Age/Sex: 74 / F ADM Date: 5 Loc: [facility] Room: Type: [facility] Attending Dr: Vernell Alvarez II, MD Copies to: Vernell Alvarez MD~ Ordering Provider: Vernell Alvarez MD Date of Service: 07/01/25 XR/XR hip BI w PEL1V: Z96.642 - Presence of left artificial hip joint BILATERAL HIP - 2 views each: CLINICAL HISTORY: Status post right RACHEL COMPARISON: Hip series 10/01/2024 FINDINGS: Bilateral THAs without radiographic complication. No acute bony process. XR/XR hip BI w PEL1V IMPRESSION: NO HARDWARE COMPLICATION.. Impression dictated by: Daniel Rudolph Jr., D.OAntonio 07/01/2025 3:37 PM Dictation Location: [facility]IO-PC-22 Transcribed By: AMANDA 07/01/25 1537 Dictated By: Danile Rudolph Jr, DO 07/01/25 1518 Signed By: 07/01/25 1537 [facility] FoundationXR [facility] BI w BQH0Ukb 47-64-3102LG hip BI w PEL1V [facility] [address] [place] [id number] XRay Report Signed Patient: Thiago Sabillon MR#: [id number] 5 : 1950 Acct:[id number] Age/Sex: 74 / F ADM Date: 07/01/25 Loc: [facility] Room: Type: [facility] Attending Dr: Vernell Alvarez II, MD Copies to: Vernell Alvarez MD Ordering Provider: Vernell Alvarez MD Date of Service: 07/01/25 XR/XR hip BI w PEL1V: Z96.642 - Presence of left artificial hip joint BILATERAL HIP - 2 views each: CLINICAL HISTORY: Status post right RACHEL COMPARISON: Hip series 10/01/2024 FINDINGS: Bilateral THAs without radiographic complication. No acute bony process. XR/XR hip BI w PEL1V IMPRESSION: NO HARDWARE COMPLICATION.. Impression dictated by: Daniel Rudolph Jr., D.O. 07/01/2025 3:37 PM Dictation Location: RADIO-PC-22 Transcribed By: AMANDA 07/01/25 153 Dictated By: Daniel Rudolph Jr, DO 07/01/25 151 Signed By: 07/01/[address] [place] [address] Physician GroupCoding Summaryon 10-27-2024 Coding SummaryMLBase 64 QxyraiczREi1pWo+PGhlYWQ+CE0IUAHeX07oyNSfdB6gU8FQWPwWKgasFCTFHVtYFlBfcqAbCF2uwXCa ZXJu [file] Y29 (more content not included)...[facility] HospitalProvider Orderson 61-36-2968Zqqwmzjt [id number]#1.00OTGTIFF St. Francis HospitalXR Spine Scoliosis Study Standingon 38-19-4760AS Spine Scoliosis Study StandingEXAMINATION: XR Spine Scoliosis Study Standing HISTORY: SCOLIOSIS, [...] Brodie Epps MD 10/20/24 7:26 am Technologist: MARIALUISASt. John of God HospitalXR hip LT min 2V(w/wo pelvis)*on 96-27-3255LV hip LT min 2V(w/wo pelvis)*[facility] [address] [place] [address] XRay Report Signed Patient: Thiago Sabillon MR#: [id number] 5 : 1950 Acct:[id number] Age/Sex: 73 / F ADM Date: 10/01/24 Loc: [facility] Room: Type: [facility] Attending Dr: Vernell Alvarez II, MD Copies [...] Dasia Cervantes M.D.10/01/2024 2:27 PM Dictation Location: [facility] Transcribed By: [facility] 10/01/24 142 Dictated By: Dasia Cervantes MD 10/01/241420 Signed By: 10/01/24 1427[facility] Physician GroupX-ray reportOrdered By: Aden Avilez on 84-19-3307Dqwqu reportMER[facility] [address] [place] [place] [address] XRay Report Signed Patient: Thiago Sabillon MR#: [id number] : 1950 Acct:[id number] Age/Sex: 73 / F ADM Date: 4 Loc: [facility] Room: Type: [facility] Attending Dr: Vernell Alvarez II, MD Copies [...] Aden Avilez M.D.08/18/2024 4:53 PM Dictation Location: [place] [address] Transcribed By: [facility] 08/18/241652 Dictated By: Aden Avilez DO 08/18/241650 Signed By: 08/18/241652 [facility] FoundationXR hip LT min 2V(w/wo pelvis)*on 08-16-6498OC hip LT min 2V(w/wo pelvis)*[facility] [address] [place] [address] XRay Report Signed Patient: Thiago Sabillon MR#: [id number] 5 : 1950 Acct:[id number] Age/Sex: 73 / F ADM Date: 08/18/24 Loc: [facility] Room: Type: [facility] Attending Dr: Vernell Alvarez II, MD Copies [...] Aden Avilez M.D.08/18/2024 4:53 PM Dictation Location: [facility] Transcribed By: [facility] 08/18/241652 Dictated By: Aden Avilez DO 08/18/241650 Signed By: 08/18/24 1653[facility] Physician GroupAppearance of UrineOrdered By: Jose Guthrie on 35-94-2134Dsdzziimkx (U)Urine appearanceCleMetroHealth Parma Medical CenterBasophils Auto (Bld) [#/Vol]Ordered By: Savannah Wen on 96-33-5230Dadnonakc (Bld) [#/Vol]0.0 10*3/uL0.0-0.2FWadsworth-Rittman HospitalBasophils (Bld) [#/Vol]Automated basophil count0.0-0.2FWadsworth-Rittman HospitalBasophils/100 WBC Auto (Bld)Ordered By: Savannah Wen on 58-42-0350Xlcgdznep/100 WBC (Bld)0.4 %.[facility] Basophils/100 WBC (Bld)Automated basophil %.[facility] Bilirubin Test strip Ql (U)Ordered By: Jose Guthrie on 47-34-8012Rcfpsyfng Ql (U)NegativeNegativeCleveland Clinic FoundationBilirubin Ql (U) Bilirubin.total [Presence] in Urine by Test stripNegativeCleveland Clinic FoundationCalcium [Mass/volume] in Serum or PlasmaOrdered By: Savannah Wen on 72-32-8728Mnhfokh [Mass/Vol]7.6 mg/dLLow8.6-10.3FWadsworth-Rittman HospitalCalcium [Mass/Vol]Calcium [Mass/volume] in Serum or PlasmaLow8.6-10.3 [facility] FoundationCarbon dioxide, total [Moles/volume] in Serum or PlasmaOrdered By: Savannah Wen on 84-66-1613VX8 [Moles/Vol]23.5 mmol/L 21.0-31.0[facility] FoundationCO2 [Moles/Vol]Carbon dioxide, total [Moles/volume] in Serum or Ebivkf52.0-31.0[facility] Chloride [Moles/volume] in Serum or PlasmaOrdered By: Savannah Wen on 68-37-0919Ijfvausa [Moles/Vol]105 mmol/K04-297CcvnblarfCleveland Clinic Foundation Chloride [Moles/Vol]Chloride [Moles/volume] in Serum or Fehkak43-812AtemblkvfCleveland Clinic FoundationColor Auto (U)Ordered By: Jsoe Guthrie on 09-95-8536Fbdvg (U)Light-yellowYelACMC Healthcare System GlenbeighColor (U)Color of Urine by AutoYelACMC Healthcare System GlenbeighCreatinine [Mass/volume] in Serum or PlasmaOrdered By: Savannah Wen on 62-00-3813Udpoaztexj [Mass/Vol]0.45 mg/dL Low0.60-1.20[facility] FoundationCreatinine [Mass/Vol]Creatinine [Mass/volume] in Serum or PlasmaLow0.60-1.20[facility] Eosinophils Auto (Bld) [#/Vol]Ordered By: Savannah Wen on 07-07-2024 Eosinophils (Bld) [#/Vol]0.0 10*3/uL0.0-0.45[facility] Eosinophils (Bld) [#/Vol]Automated eosinophil count0.0-0.45[facility] FoundationEosinophils/100 WBC Auto (Bld)Ordered By: Savannah Wen on 85-76-7085Ghuminhxnbx/100 WBC (Bld)0.7 %.[facility] Eosinophils/100 WBC (Bld)Automated eosinophil %.[facility] FoundationErythrocyte distribution width Auto (RBC) [Ratio]Ordered By: Savannah Wen on 37-04-9534Onjvdznfxaa distribution width (RBC) [Ratio]14.5 % 11.9-15.3FWadsworth-Rittman HospitalErythrocyte distribution width (RBC) [Ratio]Erythrocyte distribution width [Ratio] by Automated count11.9-15.3 [facility] FoundationGlucose [Mass/volume] in Serum or PlasmaOrdered By: Savannah Wen on 33-14-1192Igmqdmo [Mass/Vol]90 mg/oF78-472JwtqkjdcuCleveland Clinic FoundationComment on above:ADA recommended reference rangeRandom Glucose Reference Range is dependent on time and content of last meal. Glucose of more than 200 mg/dL in a nonstressed, ambulatory subject supports the diagnosisof Diabetes Mellitus.Glucose [Mass/Vol]Glucose [Mass/volume] in Serum or Mcadrw78-454JtumbnjkmCleveland Clinic FoundationComment on above:ADA recommended reference rangeRandom Glucose Reference Range is dependent on time and content of last meal. Glucose of more than 200 mg/dL in a nonstressed, ambulatory subject supports the diagnosisof Diabetes Mellitus.Glucose [Mass/volume] in Urine by Test stripOrdered By: Jose Guthrie on 43-17-1420Ciemzfl Test strip (U) [Mass/Vol]Normal mg/dLNormBrecksville VA / Crille Hospital CenterGlucose Test strip (U) [Mass/Vol]Glucose [Mass/volume] in Urine by Test stripNoTriHealth Bethesda Butler HospitalHematocrit Auto (Bld) [Volume fraction]Ordered By: Savannah Wen on 64-53-5415Tqqapvtcow (Bld) [Volume fraction]36.2 %34.0-46.4 [facility] FoundationHematocrit (Bld) [Volume fraction]Hematocrit [Volume Fraction] of Blood by Automated count34.0-46.4FWadsworth-Rittman HospitalHemoglobin Test strip Ql (U)Ordered By: Jose Guthrie on 07-07-2024 Hemoglobin Ql (U)NegativeNegativeCleveland Clinic FoundationHemoglobin Ql (U)Hemoglobin [Presence] in Urine by Test stripNegNorwalk Memorial HospitalHemoglobin [Mass/volume] in BloodOrdered By: Savannah Wen on 07-68-6287Iuamxplino (Bld) [Mass/Vol]12.3 g/dL11.8-15.4FWadsworth-Rittman HospitalHemoglobin (Bld) [Mass/Vol]Hemoglobin [Mass/volume] in Blood 11.8-15.4FWadsworth-Rittman HospitalKetones Test strip Ql (U)Ordered By: Jose Guthrie on 81-38-9673Farsebt Ql (U)NegativeNegativeCleveland Clinic FoundationKetones Ql (U)Ketones [Presence] in Urine by Test stripNegative [facility] FoundationLeukocyte esterase [Presence] in Urine by Test stripOrdered By: Jose Guthrie on 85-29-9862Nwdbbuozf esterase Test strip Ql (U) NegativeNegNorwalk Memorial HospitalLeukocyte esterase Test strip Ql (U)Leukocyte esterase [Presence] in Urine by Test stripNegativeC[facility] Clinic FoundationLeukocytes [#/volume] corrected for nucleated erythrocytes in Blood by Automated counOrdered By: Savannah Wen on 07-07-2024 WBC corrected for nucl RBC Auto (Bld) [#/Vol]7.1 10*3/uL3.8-11.6FWadsworth-Rittman HospitalWBC corrected for nucl RBC Auto (Bld) [#/Vol]Leukocytes [#/volume] corrected for nucleated erythrocytes in Blood by Automated coun 3.8-11.6FWadsworth-Rittman HospitalLymphocytes Auto (Bld) [#/Vol]Ordered By: Savannah Wen on 75-35-5885Tmgwpxrusjj (Bld) [#/Vol]1.3 10*3/uL1.00-4.8 [facility] FoundationLymphocytes (Bld) [#/Vol]Lymphocytes [#/volume] in Blood by Automated count1.00-4.8[facility] Lymphocytes/100 WBC Auto (Bld)Ordered By: Savannah Wen on 07-07-2024 Lymphocytes/100 WBC (Bld)17.9 %.[facility] FoundationLymphocytes/100 WBC (Bld)Lymphocytes/100 leukocytes in Blood by Automated count.[facility] Auto (RBC) [Entitic mass]Ordered By: Savannah Wen on 09-14-7010GDR (RBC) [Entitic mass]32.0 pg24.7-34.3FWilson Health (RBC) [Entitic mass]MCH [Entitic mass] by Automated count24.7-34.3 [facility] FoundationMCHC Auto (RBC) [Mass/Vol]Ordered By: Savannah Wen on 88-71-7014AGOC (RBC) [Mass/Vol]33.9 g/dL32.0-35.0[facility] HospitalHC (RBC) [Mass/Vol]MCHC [Mass/volume] by Automated count32.0-35.0[facility] FoundationMCV Auto (RBC) [Entitic vol] Ordered By: Savannah Wen on 47-17-2583UII (RBC) [Entitic vol]94.3 mM63-432 [facility] FoundationMCV (RBC) [Entitic vol]MCV [Entitic volume] by Automated kabhy44-286JxmzyliblCleveland Clinic FoundationMonocytes Auto (Bld) [#/Vol]Ordered By: Savannah Wen on 69-72-3737Glevuxoev (Bld) [#/Vol]0.8 10*3/uL0.0-0.8[facility] FoundationMonocytes (Bld) [#/Vol]Automated blood monocyte count0.0-0.8[facility] FoundationMonocytes/100 WBC Auto (Bld)Ordered By: Savannah Wen on 15-06-5117Atmlrsfga/100 WBC (Bld)11.5 %. [facility] FoundationMonocytes/100 WBC (Bld)Automated monocyte %. [facility] FoundationNeutrophils Auto (Bld) [#/Vol]Ordered By: Savannah Wen on 18-06-0461Pkxeyuroddi (Bld) [#/Vol]4.9 10*3/uL1.8-7.7FWadsworth-Rittman HospitalNeutrophils (Bld) [#/Vol]Neutrophils [#/volume] in Blood by Automated count1.8-7.7FWadsworth-Rittman HospitalNeutrophils/100 WBC Auto (Bld)Ordered By: Savannah Wen on 21-82-3762Avbkjmzlfru/100 WBC (Bld)69.5 %.[facility] FoundationNeutrophils/100 WBC (Bld)Automated neutrophil %.[facility] FoundationNitrite Test strip Ql (U)Ordered By: Jose Guthrie on 13-75-5591Umslgqo Ql (U)NegativeNegativeCleveland Clinic FoundationNiite Ql (U)Nitrite [Presence] in Urine by Test stripNegNorwalk Memorial HospitalNo Panel InformationOrdered By: Savannah Wen on 83-63-9531Ydjwplhup GFR (CKD-EPI)> 60.0 mL/MinC[facility] Clinic Foundation Pharmacy Creatinine Clearance (Chem54.08[facility] Nucleated erythrocytes [Presence] in Blood by Automated countOrdered By: Savannah Wen on 25-22-1430Fnkqvdiqs RBC Auto Ql (Bld)0.0 /100{WBC}0-0.5FWadsworth-Rittman HospitalNucleated RBC Auto Ql (Bld)Nucleated erythrocytes [Presence] in Blood by Automated count0-0.5FWad[facility]-R[facility] Hospital Platelet mean volume Auto (Bld) [Entitic vol]Ordered By: Savannah Wen on 04-97-0310Pnwnkogn mean volume (Bld) [Entitic vol]7.5 fL6.3-10.7FWadsworth-Rittman HospitalPlatelet mean volume (Bld) [Entitic vol]Platelet mean volume [Entitic volume] in Blood by Automated count6.3-10.7FWadsworth-Rittman HospitalPlatelets Auto (Bld) [#/Vol]Ordered By: Savannah Wen on 74-36-2547Xobmbwsqz (Bld) [#/Vol]198 10*3/aR212-157UjdfccyutCleveland Clinic FoundationPlatelets (Bld) [#/Vol]Platelets [#/volume] in Blood by Automated count 150-450[facility] FoundationPotassium [Moles/volume] in Serum or PlasmaOrdered By: Pedro Quintero on 81-83-9862Maqyhaewg [Moles/Vol]3.9 mmol/L 3.5-5.1FWadsworth-Rittman HospitalPotassium [Moles/Vol]Potassium [Moles/volume] in Serum or Plasma3.5-5.1FWadsworth-Rittman HospitalProtein Test strip (U) [Mass/Vol]Ordered By: Jose Guthrie on 78-31-3504Vsuhqpx (U) [Mass/Vol]NegativeNegativeCleveland Clinic FoundationProtein (U) [Mass/Vol]Protein [Mass/volume] in Urine by Test stripNegativeCleveland Clinic FoundationRB Auto (Bld) [#/Vol]Ordered By: Savannah Wen on 58-26-9669FTY (Bld) [#/Vol]3.84 10*6/uL3.60-5.00[facility] FoundationRBC (Bld) [#/Vol]Erythrocytes [#/volume] in Blood by Automated count3.60-5.00[facility] County Hospitalerum or plasma anion gap determinationOrdered By: Savannah Wen on 70-88-7727Yqrlg gap [Moles/Vol]TNPCleveland Clinic FoundationComment on above:Test not performedAnion gap [Moles/Vol]Serum or plasma anion gap determinationCleveland Clinic FoundationComment on above:Test not performedSodium [Moles/volume] in Serum or PlasmaOrdered By: Savannah Wen on 69-87-9684Rqxrvt [Moles/Vol]137 mmol/A817-572DfykkmrhqWood County Hospitalodium [Moles/Vol]Sodium [Moles/volume] in Serum or Nyikye075-632HfmjzqnayWood County Hospitalpecific gravity Test strip (U) [Rel density]Ordered By: Jose Guthrie on 47-71-1380Eeypxils gravity (U) [Rel density]1.0201.001-1.030 [facility] Hospitalpecific gravity (U) [Rel density]Specific gravity of Urine by Test strip1.001-1.030[facility] FoundationUrea nitrogen [Mass/volume] in Serum or PlasmaOrdered By: Savannah Wen on 96-80-0799Wobc nitrogen [Mass/Vol]15 mg/dL04-29[facility] Urea nitrogen [Mass/Vol]Urea nitrogen [Mass/volume] in Serum or Plasma04-29 [facility] FoundationUrine appearanceOrdered By: Jose Guthrie on 47-81-1919Ysaaejtozb (U)ClearClearFWadsworth-Rittman HospitalUrobilinogen Test strip (U) [Mass/Vol]Ordered By: Jose Guthrie on 04-30-7672Dwbygpawllob (U) [Mass/Vol]Normal mg/dLNoTriHealth Bethesda Butler HospitalUrobilinogen (U) [Mass/Vol]Urobilinogen [Mass/volume] in Urine by Test stripNoTriHealth Bethesda Butler HospitalWBC Auto (Bld) [#/Vol]Ordered By: Savannah Wen on 07-02-4475LPE (Bld) [#/Vol]7.1 10*3/uL3.8-11.6FWadsworth-Ritt[facility] Hospital WBC (Bld) [#/Vol]Leukocytes [#/volume] in Blood by Automated count3.8-11.6 [facility] FoundationpH Test strip (U)Ordered By: Jose Guthrie on 88-67-2612cZ (U)6.5 [pH]5.0-9.0[facility] FoundationpH (U)pH of Urine by Test strip5.0-9.0[facility] FoundationActivated partial thromboplastin time (aPTT) in platelet poor plasma by coagulation aOrdered By: Jose Guthrie on 00-39-2589eGGS Coag (PPP) [Time]24.6 sLow25.1-36.5FWadsworth-Rittman HospitalComment on above:A hematocrit value greater than 55% may lead to inaccurate results in coagulation testing. Patientshaving hematocrit values >55% require a special collection tube for coagulation studies. Please c ontact the laboratory at [phone] for redraw instructions.Alanine aminotransferase [Enzymatic activity/volume] in Serum or PlasmaOrdered By: Jose Guthrie on 15-96-1934HOW [Catalytic activity/Vol]32 U/L7[facility] FoundationALT [Catalytic activity/Vol]Alanine aminotransferase [Enzymatic activity/volume] in Serum or PlasmaCleveland Clinic FoundationAlbumin [Mass/volume] in Serum or Plasma by Bromocresol green (BCG) dye binding methoOrdered By: Jose Guthrie on 14-94-7772Qadyhjt BCG dye [Mass/Vol]4.3 g/dL3.5-5.7FWadsworth-Rittman HospitalAlbumin BCG dye [Mass/Vol]Albumin [Mass/volume] in Serum or Plasma by Bromocresol green (BCG) dye binding metho 3.5-5.7FWadsworth-Rittman HospitalAlkaline phosphatase [Enzymatic activity/volume] in Serum or PlasmaOrdered By: Jose Guthrie on 23-39-9768AWD [Catalytic activity/Vol]58 U/B03-859ZribdbqssCleveland Clinic FoundationALP [Catalytic activity/Vol]Alkaline phosphatase [Enzymatic activity/volume] in Serum or Lbnjer51-147HiosezbfrCleveland Clinic FoundationAspartate aminotransferase [Enzymatic activity/volume] in Serum or PlasmaOrdered By: Jose Guthrie on 45-83-5375BTD [Catalytic activity/Vol]32 U/X49-91VxsrtjfljCleveland Clinic FoundationAST [Catalytic activity/Vol]Aspartate aminotransferase [Enzymatic activity/volume] in Serum or Ncjvcf28-44NuijgrkmuC[facility] Clinic Foundation Basophils Auto (Bld) [#/Vol]Ordered By: Jose Guthrie on 78-45-0629Hggvishfi (Bld) [#/Vol]0.0 10*3/uL0.0-0.2FWadsworth-Rittman HospitalBasophils/100 WBC Auto (Bld)Ordered By: Jose Guthrie on 29-47-1857Xyebbhjqt/100 WBC (Bld)0.3 % .[facility] FoundationBilirubin.total [Mass/volume] in Serum or PlasmaOrdered By: Jose Guthrie on 26-06-0270Rgjudqtod [Mass/Vol]0.7 mg/dL0.3-1.0 [facility] FoundationBilirubin [Mass/Vol]Bilirubin.total [Mass/volume] in Serum or Plasma0.3-1.0[facility] FoundationCalcium [Mass/volume] in Serum or PlasmaOrdered By: Jose Guthrie on 37-33-6826Tvhuzab [Mass/Vol]8.8 mg/dL8.6-10.3FWadsworth-Rittman HospitalCarbon dioxide, total [Moles/volume] in Serum or PlasmaOrdered By: Jose Guthrie on 20-29-3571OA3 [Moles/Vol]25.6 mmol/L21.0-31.0[facility] FoundationChloride [Moles/volume] in Serum or PlasmaOrdered By: Jose Guthrie 43-24-0078Sbeeccrm [Moles/Vol]100 mmol/I42-082DlckymqzcCleveland Clinic FoundationCreatine kinase [Enzymatic activity/volume] in Serum or PlasmaOrdered By: Jose Guthrie 09-82-2660MJ [Catalytic activity/Vol]606 U/SJtcx97-309RdjupgpcyCleveland Clinic FoundationCK [Catalytic activity/Vol]Creatine kinase [Enzymatic activity/volume] in Serum or UedbamShas07-117NhagsaoydCleveland Clinic FoundationCreatinine [Mass/volume] in Serum or PlasmaOrdered By: Jose Guthrie 27-38-7711Zekflouwtm [Mass/Vol]0.60 mg/dL0.60-1.20[facility] FoundationEosinophils Auto (Bld) [#/Vol]Ordered By: Jose Guthrie on 10-89-1786Sdldchmxcvs (Bld) [#/Vol]0.0 10*3/uL0.0-0.45[facility] FoundationEosinophils/100 WBC Auto (Bld) Ordered By: Jose Guthrie on 10-49-5769Vsafdkcjkoo/100 WBC (Bld)0.4 %.[facility] FoundationErythrocyte distribution width Auto (RBC) [Ratio]Ordered By: Jose Guthrie on 30-11-1153Wowtmquhuua distribution width (RBC) [Ratio]14.5 % 11.9-15.3FWadsworth-Rittman HospitalGlobulin Calc (S) [Mass/Vol]Ordered By: Jose Guthrie on 35-56-2826Gumgexex (S) [Mass/Vol]2.5 g/dLCleveland Clinic FoundationGlobulin (S) [Mass/Vol]Serum globulin measurement by calculation (mass/volume)[facility] FoundationGlucose [Mass/volume] in Serum or PlasmaOrdered By: Jose Guthrie on 95-70-9384Ryubyex [Mass/Vol]102 mg/dLHigh 70-100[facility] FoundationComment on above:ADA recommended reference rangeRandom Glucose Reference Range is dependent on time and content of last meal. Glucose of more than 200 mg/dL in a nonstressed, ambulatory subject supports the diagnosisof Diabetes Mellitus.Hematocrit Auto (Bld) [Volume fraction]Ordered By: Jose Guthrie on 69-05-0813Fukixxuiac (Bld) [Volume fraction]42.3 %34.0-46.4FWadsworth-Rittman HospitalHemoglobin [Mass/volume] in BloodOrdered By: Jose Guthrie on 77-63-2415Hjqfaynefl (Bld) [Mass/Vol]14.1 g/dL11.8-15.4FWadsworth-Rittman HospitalINR in Platelet poor plasma by Coagulation assayOrdered By: Jose Guthrie on 18-59-5735AWK Coag (PPP) [Relative time]0.9 {INR}[facility] FoundationComment on above: INR Therapeutic Range A) Pre- and Peroperative OAT started two weeks before surgery. NOT HIP SURGERY: 1.5 - 2.5 HIP SURGERY: 2 - 3B) Primary and secondary prevention of venous THROMBOSIS: 2 - 3C) Active venous thrombosis, pulmonary embolismand prevention of recurrent venous thrombosis: 2 - 3D) Prevention of arterial thromboembolismincluding patients with mechanical heart valves: 3 - 4.5 INR Coag (PPP) [Relative time]INR in Platelet poor plasma by Coagulation assay [facility] FoundationComment on above:INR Therapeutic Range A) Pre- and Peroperative OAT started two weeks before surgery. NOT HIP SURGERY: 1.5 - 2.5 HIP SURGERY: 2 - 3B) Primary and secondary prevention of venous THROMBOSIS: 2 - 3C) Active venous thrombosis, pulmonary embolismand prevention of recurrent venous thrombosis: 2 - 3D) Prevention of arterial thromboembolismincluding patients with mechanical heart valves: 3 - 4.5Leukocytes [#/volume] corrected for nucleated erythrocytes in Blood by Automated counOrdered By: Jose Guthrie on 85-20-6155GVK corrected for nucl RBC Auto (Bld) [#/Vol]12.8 10*3/uLHigh3.8-11.6 [facility] FoundationLymphocytes Auto (Bld) [#/Vol]Ordered By: Jose Guthrie on 97-25-3995Tivblfsdfis (Bld) [#/Vol]1.3 10*3/uL1.00-4.8[facility] FoundationLymphocytes/100 WBC Auto (Bld)Ordered By: Jose Guthrie on 00-46-1070Qqdnxnmfkwy/100 WBC (Bld)10.0 %.[facility] Auto (RBC) [Entitic mass]Ordered By: Jose Guthrie on 11-25-7363OYY (RBC) [Entitic mass]31.8 pg24.7-34.3FWadsworth-Rittman HospitalMCHC Auto (RBC) [Mass/Vol]Ordered By: Jose Guthrie on 94-21-8306JCMP (RBC) [Mass/Vol]33.3 g/dL 32.0-35.0[facility] FoundationMCV Auto (RBC) [Entitic vol]Ordered By: Jose Guthrie on 64-47-1442UOT (RBC) [Entitic vol]95.6 hH11-734PqfrvhpnuCleveland Clinic FoundationMagnesium [Mass/volume] in Serum or PlasmaOrdered By: Jose Guthrie on 89-49-5660Jrodgotdy [Mass/Vol]1.9 mg/dL1.9-2.7FWadsworth-Rittman HospitalMagnesium [Mass/Vol]Magnesium [Mass/volume] in Serum or Plasma 1.9-2.7FWadsworth-Rittman HospitalMonocyte distribution width [Entitic volume] in Blood by AutomatedOrdered By: Jose Guthrie on 65-40-9114Fajvcnye distribution width Auto (Bld) [Entitic vol]17.45 %0.00-20.00[facility] FoundationMonocyte distribution width Auto (Bld) [Entitic vol]Monocyte distribution width [Entitic volume] in Blood by Automated0.00-20.00[facility] FoundationMonocytes Auto (Bld) [#/Vol]Ordered By: Jose Guthrie on 99-02-6788Knxrsikju (Bld) [#/Vol]1.3 10*3/uLHigh0.0-0.8[facility] FoundationMonocytes/100 WBC Auto (Bld)Ordered By: Jose Guthrie on 07-06-2024 Monocytes/100 WBC (Bld)10.1 %.[facility] FoundationNatriuretic peptide B [Mass/Vol]Ordered By: Jose Guthrie on 57-34-0613Cyvlbohuxld peptide B (Bld) [Mass/Vol]111.0 pg/mLHigh5-100[facility] FoundationNatriuretic peptide B (Bld) [Mass/Vol]BNP ser/plasHigh5-100[facility] FoundationNeutrophils Auto (Bld) [#/Vol]Ordered By: Jose Guthrie on 07-06-2024 Neutrophils (Bld) [#/Vol]10.2 10*3/uLHigh1.8-7.7FWadsworth-Rittman HospitalNeutrophils/100 WBC Auto (Bld)Ordered By: Jose Guthrie on 07-06-2024 Neutrophils/100 WBC (Bld)79.2 %.[facility] FoundationNo Panel InformationOrdered By: Jose Guthrie on 61-54-7892Keserzzbs GFR (CKD-EPI)> 60.0 mL/MinCleveland Clinic FoundationPharmacy Creatinine Clearance (Chem51.31 [facility] FoundationNucleated erythrocytes [Presence] in Blood by Automated countOrdered By: Jose Guthrie on 10-79-3524Rxfrvswoj RBC Auto Ql (Bld) 0.0 /100{WBC}0-0.5FWadsworth-Rittman HospitalPlatelet mean volume Auto (Bld) [Entitic vol]Ordered By: Jose Guthrie on 36-22-9234Bejklkev mean volume (Bld) [Entitic vol]7.6 fL6.3-10.7FWadsworth-Rittman HospitalPlatelets Auto (Bld) [#/Vol]Ordered By: Jose Guthrie on 07-99-3023Llleaccje (Bld) [#/Vol]243 10*3/uL419-438WqzfikpxoCleveland Clinic FoundationPotassium [Moles/volume] in Serum or PlasmaOrdered By: Jose Guthrie on 54-80-9735Flolcgcov [Moles/Vol]4.0 mmol/L 3.5-5.1FWadsworth-Rittman HospitalProtein [Mass/volume] in Serum or Plasma Ordered By: Jose Guthrie on 90-36-3449Ssmwucr [Mass/Vol]6.8 g/dL6.4-8.9[facility] FoundationProtein [Mass/Vol]Protein [Mass/volume] in Serum or Plasma6.4-8.9[facility] FoundationProthrombin time (PT)Ordered By: Jose Guthrie on 32-43-4435FK Coag (PPP) [Time]11.0 s9.0-12.9[facility] FoundationComment on above:A hematocrit value greater than 55% may lead to inaccurate results in coagulation testing. Patientshaving hematocrit values >55% require a special collection tube for coagulation studies. Please contact the laboratory at [phone] for redraw instructions.PT Coag (PPP) [Time] Prothrombin time (PT)9.0-12.9[facility] FoundationComment on above:A hematocrit value greater than 55% may lead to inaccurate results in coagulation testing. Patientshaving hematocrit values >55% require a special collection tube for coagulation studies. Please contact the laboratory at [phone] for redraw instructions.RBC Auto (Bld) [#/Vol]Ordered By: Jose Guthrie on 07-06-2024 RBC (Bld) [#/Vol]4.42 10*6/uL3.60-5.00[facility] Hospitalerum or plasma albumin/globulin mass ratioOrdered By: Jose Guthrie on 07-06-2024 Albumin/Globulin [Mass ratio]1.7 {ratio}[facility] Albumin/Globulin [Mass ratio]Serum or plasma albumin/globulin mass ratio [facility] Hospitalerum or plasma anion gap determinationOrdered By: Jose Guthrie on 45-89-2075Xgekz gap [Moles/Vol]11.4 mmol/L6.0-15.0[facility] Hospitalodium [Moles/volume] in Serum or PlasmaOrdered By: Jose Guthrie on 19-58-5734Tqnxqm [Moles/Vol]133 mmol/JSpp568-216FibsgbkaoCleveland Clinic FoundationTroponin I.cardiac [Mass/volume] in Serum or Plasma by Detection limit <= 0.01 ng/Ordered By: Jose Guthrie on 32-53-2862Ysbznmvs I.cardiac DL <= 0.01 ng/mL [Mass/Vol]5.1 pg/mL0.0-15.0[facility] FoundationTroponin I.cardiac DL <= 0.01 ng/mL [Mass/Vol]Troponin I.cardiac [Mass/volume] in Serum or Plasma by Detection limit <= 0.01 ng/0.0-15.0[facility] FoundationUrea nitrogen [Mass/volume] in Serum or PlasmaOrdered By: Jose Guthrie on 49-01-1759Duyq nitrogen [Mass/Vol]28 mg/dLHigh7-25[facility] FoundationWBC Auto (Bld) [#/Vol]Ordered By: Jose Guthrie on 97-32-5516QRI (Bld) [#/Vol]12.8 10*3/uLHigh3.8-11.6FWadsworth-Rittman HospitalaPTT in Platelet poor plasma by Coagulation assayOrdered By: Jose Guthrie on 45-00-3863bQHK Coag (PPP) [Time]Activated partial thromboplastin time (aPTT) in platelet poor plasma by coagulation aLow25.1-36.5FWadsworth-Rittman HospitalComment on above:A hematocrit value greater than 55% may lead to inaccurate results in coagulation testing. Patientshaving hematocrit values >55% require a special collection tube for coagulation studies. Please contact the laboratory at [phone] for redraw instructions.Albumin [Mass/volume] in Serum or Plasma by Bromocresol green (BCG) dye binding methoOrdered By: Vernell Alvarez on 09-82-7258Ibvlrwh BCG dye [Mass/Vol]3.9 g/dL3.5-5.7FWadsworth-Rittman HospitalAlbumin BCG dye [Mass/Vol]Albumin [Mass/volume] in Serum or Plasma by Bromocresol green (BCG) dye binding metho3.5-5.7FWadsworth-Rittman HospitalXR Hip - right 3 Viewson 01-72-1502Okvotfb Result: X-rays AP and lateral of the [...] of loosening of the stem Kameron Barry D.O.[facility] HealthcareRadiology Study observation (narrative)[facility] HealthcareAppearance of UrineOrdered By: Vernell Alvarez on 87-53-5197Lluhyuohmr (U)Urine appearanceCleMetroHealth [facility] Basophils Auto (Bld) [#/Vol]Ordered By: Vernell Alvarez on 14-06-6553Xwcvapcqz (Bld) [#/Vol]0.0 10*3/uL0.0-0.2FWadsworth-Rittman HospitalBasophils (Bld) [#/Vol]Automated basophil count0.0-0.2FWadsworth-Ritt[facility] Hospital Basophils/100 WBC Auto (Bld)Ordered By: Vernell Alvarez on 06-21-2024 Basophils/100 WBC (Bld)0.6 %.[facility] FoundationBasophils/100 WBC (Bld)Automated basophil %.[facility] FoundationBilirubin Test strip Ql (U)Ordered By: Vernell Alvarez on 13-50-5525Puhwbmzdo Ql (U)NegativeNegative [facility] FoundationBilirubin Ql (U)Bilirubin.total [Presence] in Urine by Test stripNegativeCleveland Clinic FoundationCalcium [Mass/volume] in Serum or PlasmaOrdered By: Vernell Alvarez on 68-65-2842Dfxffjh [Mass/Vol]9.0 mg/dL8.6-10.3FWadsworth-Rittman HospitalCalcium [Mass/Vol] Calcium [Mass/volume] in Serum or Plasma8.6-10.3FWadsworth-Rittman HospitalCarbon dioxide, total [Moles/volume] in Serum or PlasmaOrdered By: Vernell Alvarez on 11-25-0909YM7 [Moles/Vol]31.0 mmol/L21.0-31.0[facility] FoundationCO2 [Moles/Vol]Carbon dioxide, total [Moles/volume] in Serum or Xvtlmy92.0-31.0[facility] FoundationChloride [Moles/volume] in Serum or PlasmaOrdered By: Vernell Alvarez on 63-90-5863Ptdlelcg [Moles/Vol]106 mmol/B33-368GnohxsyneCleveland Clinic FoundationChloride [Moles/Vol]Chloride [Moles/volume] in Serum or Fyghej53-631TplegyaoqCleveland Clinic FoundationColor Auto (U)Ordered By: Vernell Alvarez on 88-72-4756Opljc (U)ColorlessYellow [facility] FoundationColor (U)Color of Urine by AutoYellowCleveland Clinic FoundationCreatinine [Mass/volume] in Serum or PlasmaOrdered By: Vernell Alvarez on 17-17-9260Xgjlhyjfra [Mass/Vol]0.64 mg/dL0.60-1.20[facility] FoundationCreatinine [Mass/Vol]Creatinine [Mass/volume] in Serum or Plasma0.60-1.20[facility] FoundationEosinophils Auto (Bld) [#/Vol] Ordered By: Vernell Alvarez on 25-89-3745Vvdwoelvcnq (Bld) [#/Vol]0.1 10*3/uL 0.0-0.45[facility] FoundationEosinophils (Bld) [#/Vol]Automated eosinophil count0.0-0.45[facility] FoundationEosinophils/100 WBC Auto (Bld)Ordered By: Vernell Alvarez on 46-46-0759Zqxvhsqjcob/100 WBC (Bld)1.8 %.[facility] FoundationEosinophils/100 WBC (Bld)Automated eosinophil %.[facility] FoundationErythrocyte distribution width Auto (RBC) [Ratio]Ordered By: Vernell Alvarez on 90-97-5572Khofdodeese distribution width (RBC) [Ratio]14.5 %11.9-15.3FWadsworth-Rittman HospitalErythrocyte distribution width (RBC) [Ratio]Erythrocyte distribution width [Ratio] by Automated count11.9-15.3FWadsworth-Rittman HospitalFructosamine [Moles/volume] in Serum or PlasmaOrdered By: Vernell Alvarez on 06-21-2024 Fructosamine [Moles/Vol]219 umol/L0-285[facility] FoundationComment on above:Published reference interval for apparently healthysubjects between age 20 and 60 is 205 - 285 umol/L and in apoorly controlled diabetic population is 228 - 563 umol/Lwith a mean of 396 umol/L.Performed at: [facility] [id number] Director: Roque Alex PhD, Phone: [phone] [Moles/Vol]Fructosamine [Moles/volume] in Serum or Plasma 0-285C[facility] Clinic FoundationComment on above:Published reference interval for apparently healthysubjects between age 20 and 60 is 205 - 285 umol/ L and in apoorly controlled diabetic population is 228 - 563 umol/Lwith a mean of 396 umol/L.Performed at: [facility] [id number] Director: Roque Alex PhD, Phone: [phone] [Mass/volume] in Serum or PlasmaOrdered By: Vernell Alvarez on 17-87-9322Ymvrxdw [Mass/Vol]81 mg/eU36-063RtoiqvnrnCleveland Clinic FoundationComment on above:ADA recommended reference rangeRandom Glucose Reference Range is dependent on time and content of last meal. Glucose of more than 200 mg/dL in a nonstressed, ambulatory subject supports the diagnosisof Diabetes Mellitus.Glucose [Mass/Vol] Glucose [Mass/volume] in Serum or Ddansg64-085Gyyddxbba[address] [place] [address] Comment on above:ADA recommended reference rangeRandom Glucose Reference Range is dependent on time and content of last meal. Glucose of more than 200 mg/dL in a nonstressed, ambulatory subject supports the diagnosisof Diabetes Mellitus. Glucose [Mass/volume] in Urine by Test stripOrdered By: Vernell Alvarez on 76-57-6346Athfgxj Test strip (U) [Mass/Vol]Normal mg/dLNoTriHealth Bethesda Butler HospitalGlucose Test strip (U) [Mass/Vol]Glucose [Mass/volume] in Urine by Test stripNormalCleveland Clinic FoundationHematocrit Auto (Bld) [Volume fraction]Ordered By: Vernell Alvarez on 69-61-2828Bbhxgtuiii (Bld) [Volume fraction]38.8 %34.0-46.4FWadsworth-Rittman HospitalHematocrit (Bld) [Volume fraction]Hematocrit [Volume Fraction] of Blood by Automated count 34.0-46.4FWadsworth-Rittman HospitalHemoglobin Test strip Ql (U)Ordered By: Vernell Alvarez on 08-01-8997Bfctzostta Ql (U)NegativeNegativeCleveland Clinic FoundationHemoglobin Ql (U)Hemoglobin [Presence] in Urine by Test stripNegNorwalk Memorial HospitalHemoglobin [Mass/volume] in Blood Ordered By: Vernell Alvarez on 46-94-3122Nvprexebpl (Bld) [Mass/Vol]13.0 g/dL 11.8-15.4FWadsworth-Rittman HospitalHemoglobin (Bld) [Mass/Vol]Hemoglobin [Mass/volume] in Blood11.8-15.4FWadsworth-Rittman HospitalKetones Test strip Ql (U)Ordered By: Vernell Alvarez on 98-44-3032Wjlglaj Ql (U)Negative NegativeCleveland Clinic FoundationKetones Ql (U)Ketones [Presence] in Urine by Test stripNegNorwalk Memorial HospitalLeukocyte esterase [Presence] in Urine by Test stripOrdered By: Vernell Alvarez on 06-21-2024 Leukocyte esterase Test strip Ql (U)NegativeNegNorwalk Memorial HospitalLeukocyte esterase Test strip Ql (U)Leukocyte esterase [Presence] in Urine by Test stripNegNorwalk Memorial HospitalLeukocytes [#/volume] corrected for nucleated erythrocytes in Blood by Automated counOrdered By: Vernell Alvarez on 78-40-1913TMX corrected for nucl RBC Auto (Bld) [#/Vol]5.8 10*3/uL3.8-11.6FWadsworth-Rittman HospitalWBC corrected for nucl RBC Auto (Bld) [#/Vol]Leukocytes [#/volume] corrected for nucleated erythrocytes in Blood by Automated coun3.8-11.6FWadsworth-Rittman HospitalLymphocytes Auto (Bld) [#/Vol]Ordered By: Vernell Alvarez on 60-66-7723Iqsjokthpfe (Bld) [#/Vol] 1.4 10*3/uL1.00-4.8C[facility] Clinic FoundationLymphocytes (Bld) [#/Vol] Lymphocytes [#/volume] in Blood by Automated count1.00-4.8C[facility] Clinic FoundationLymphocytes/100 WBC Auto (Bld)Ordered By: Vernell Alvarez on 66-98-4573Sdmhxreuiro/100 WBC (Bld)24.0 %.[facility] Lymphocytes/100 WBC (Bld)Lymphocytes/100 leukocytes in Blood by Automated count. [facility] Auto (RBC) [Entitic mass]Ordered By: Vernell Alvarez on 81-08-6940WVL (RBC) [Entitic mass]31.7 pg24.7-34.3FWilson Health (RBC) [Entitic mass]MCH [Entitic mass] by Automated count 24.7-34.3FSt. John of God HospitalHC Auto (RBC) [Mass/Vol]Ordered By: Vernell Alvarez on 49-66-0838DLUL (RBC) [Mass/Vol]33.6 g/dL32.0-35.0[facility] HospitalHC (RBC) [Mass/Vol]MCHC [Mass/volume] by Automated count32.0-35.0C[facility] Clinic FoundationMCV Auto (RBC) [Entitic vol] Ordered By: Vernell Alvarez on 40-46-0440JIF (RBC) [Entitic vol]94.5 nK90-173 [facility] FoundationMCV (RBC) [Entitic vol]MCV [Entitic volume] by Automated okgpd59-305CsydmgpwlCleveland Clinic FoundationMonocytes Auto (Bld) [#/Vol]Ordered By: Vernell Alvarez on 79-31-3002Pkrzepfof (Bld) [#/Vol]0.7 10*3/uL0.0-0.8C[facility] Clinic FoundationMonocytes (Bld) [#/Vol]Automated blood monocyte count0.0-0.8C[facility] Clinic FoundationMonocytes/100 WBC Auto (Bld)Ordered By: Vernell Alvarez on 06-86-4576Hetwvtwta/100 WBC (Bld)12.3 % .[facility] Clinic FoundationMonocytes/100 WBC (Bld)Automated monocyte %. [facility] FoundationNeutrophils Auto (Bld) [#/Vol]Ordered By: Vernell Alvarez on 65-01-1353Rezhktowrvt (Bld) [#/Vol]3.6 10*3/uL1.8-7.7 [facility] FoundationNeutrophils (Bld) [#/Vol]Neutrophils [#/volume] in Blood by Automated count1.8-7.7FWadsworth-Rittman Hospital Neutrophils/100 WBC Auto (Bld)Ordered By: Vernell Alvarez on 06-21-2024 Neutrophils/100 WBC (Bld)61.3 %.[facility] FoundationNeutrophils/100 WBC (Bld)Automated neutrophil %.[facility] FoundationNitrite Test strip Ql (U)Ordered By: Vernell Alvarez on 61-88-6526Ijxtmdg Ql (U)Negative NegativeCleveland Clinic FoundationNiite Ql (U)Nitrite [Presence] in Urine by Test stripNegativeCleveland Clinic FoundationNo Panel Information Ordered By: Vernell Alvarez on 26-44-3518Tosozygvh GFR (CKD-EPI)> 60.0 mL/Min [facility] FoundationPharmacy Creatinine Clearance (ChemN/AFWadsworth-Rittman HospitalNucleated erythrocytes [Presence] in Blood by Automated countOrdered By: Vernell Alvarez on 28-33-4258Ihbtwahwb RBC Auto Ql (Bld)0.1 /100{WBC}0-0.5FWadsworth-Rittman HospitalNucleated RBC Auto Ql (Bld) Nucleated erythrocytes [Presence] in Blood by Automated count0-0.5FWadsworth-Rittman HospitalPlatelet mean volume Auto (Bld) [Entitic vol]Ordered By: Vernell Alvarez on 20-12-9347Qrspatbj mean volume (Bld) [Entitic vol]7.6 fL 6.3-10.7FWadsworth-Rittman HospitalPlatelet mean volume (Bld) [Entitic vol]Platelet mean volume [Entitic volume] in Blood by Automated count6.3-10.7 [facility] FoundationPlatelets Auto (Bld) [#/Vol]Ordered By: Vernell Alvarez on 70-64-9857Kgssrbhlb (Bld) [#/Vol]228 10*3/lQ084-658UwvprtfhgCleveland Clinic FoundationPlatelets (Bld) [#/Vol]Platelets [#/volume] in Blood by Automated -777DeuputigrCleveland Clinic FoundationPotassium [Moles/volume] in Serum or PlasmaOrdered By: Vernell Alvarez on 91-82-0027Mkrjtuzvk [Moles/Vol] 4.6 mmol/L3.5-5.1FWadsworth-Rittman HospitalPotassium [Moles/Vol]Potassium [Moles/volume] in Serum or Plasma3.5-5.1FWadsworth-Rittman Hospital Protein Test strip (U) [Mass/Vol]Ordered By: Vernell Alvarez on 06-21-2024 Protein (U) [Mass/Vol]NegativeNegativeCleveland Clinic FoundationProtein (U) [Mass/Vol]Protein [Mass/volume] in Urine by Test stripNegativeCleveland Clinic FoundationRB Auto (Bld) [#/Vol]Ordered By: Vernell Alvarez on 60-11-2532MBO (Bld) [#/Vol]4.11 10*6/uL3.60-5.00Cleveland Clinic FoundationRB (Bld) [#/Vol]Erythrocytes [#/volume] in Blood by Automated count 3.60-5.00Wood County Hospitalerum or plasma anion gap determinationOrdered By: Vernell Alvarez on 25-15-5066Wvwvo gap [Moles/Vol]8.6 mmol/L6.0-15.0C[facility] FoundationAnion gap [Moles/Vol]Serum or plasma anion gap determination6.0-15.0[facility] Hospitalodium [Moles/volume] in Serum or PlasmaOrdered By: Vernell Alvarez on 20-73-7399Evater [Moles/Vol]141 mmol/F009-441UetpvbbtrWood County Hospitalodium [Moles/Vol] Sodium [Moles/volume] in Serum or Ijnwqz624-664YfkduhiayCleveland Clinic Foundation Specific gravity Test strip (U) [Rel density]Ordered By: eVrnell Alvarez on 70-17-1887Olhxspug gravity (U) [Rel density]1.0151.001-1.030[facility] Hospitalpecific gravity (U) [Rel density]Specific gravity of Urine by Test strip1.001-1.030C[facility] FoundationUrea nitrogen [Mass/volume] in Serum or PlasmaOrdered By: Vernell Alvarez on 87-85-9127Hdow nitrogen [Mass/Vol]32 mg/dLHealthsouth Rehabilitation Hospital04-29C[facility] Clinic FoundationUrea nitrogen [Mass/Vol]Urea nitrogen [Mass/volume] in Serum or PlasmaHigh- [facility] Clinic FoundationUrine appearanceOrdered By: Vernell Alvarez on 83-52-0740Vxyggibuza (U)ClearCleMetroHealth Parma Medical CenterUrobilinogen Test strip (U) [Mass/Vol]Ordered By: Vernell Alvarez on 59-58-0410Mnkitkrxtxiu (U) [Mass/Vol]Normal mg/dLNoTriHealth Bethesda Butler HospitalUrobilinogen (U) [Mass/Vol]Urobilinogen [Mass/volume] in Urine by Test stripNoTriHealth Bethesda Butler HospitalWBC Auto (Bld) [#/Vol]Ordered By: Vernell Alvarez on 17-77-3555EBJ (Bld) [#/Vol]5.8 10*3/uL3.8-11.6FWadsworth-Rittman Hospital WBC (Bld) [#/Vol]Leukocytes [#/volume] in Blood by Automated count3.8-11.6 [facility] FoundationpH Test strip (U)Ordered By: Vernell Alvarez on 21-06-6474pH (U)7.0 [pH]5.0-9.0C[facility] Clinic FoundationpH (U)pH of Urine by Test strip5.0-9.0[facility] FoundationGlucose mean value [Mass/volume] in Blood Estimated from glycated hemoglobinon 65-17-0209Pgpvdav glucose Estimated from glycated hemoglobin (Bld) [Mass/Vol]117 mg/dLCleveland Clinic FoundationHemoglobin [Mass/volume] in Bloodon 94-49-5522Layreygdwu (Bld) [Mass/Vol]12.2 g/dL12.0-16.0[facility] FoundationLaboratory - Chemistry and Chemistry - challengeon 07-29-0534Utfsezx [Mass/Vol]3.1 g/dLLow 3.4-5.0[facility] FoundationLaboratory - Hematology and Cell counts on 68-09-6915XhU4f (Bld) [Mass fraction]5.7 %4.5-6.2FWadsworth-Rittman HospitalComment on above:ADA RECOMMENDED LIMIT 4.0 - 6.0ADA THERAPEUTIC TARGET < 7.0ACTION SUGGESTED> 7.0No Panel Informationon 64-95-8980Msdwinpnw Lab Order CodeSee commentCleveland Clinic FoundationComment on above:SEE SCANNED NWAUJE48-Feaovyi Vitamin D Total45.8 ng/mLCleveland Clinic Foundation Comment on above:<20 ng/mL Vit D ayogdavvp70-<30 ng/mL Vit D lsfgqivrabqt87-060 ng/mL Vit D sufficient>100 ng/mL Potential ToxicityMiscellaneous TestCOMMENT. [facility] Clinic FoundationComment on above:Test Ordered: [id number] Nicotine and Metabolite, QuantNicotine <1.0 ng/mL Reference Range: .Thistest was developed and its performance characteristicsdetermined by [facility]. It has not been cleared orapproved by the Food and Drug Administration.Nicotine levels greater than 2.0 are consistent with theuse of tobacco or tobacco cessation products.Cotinine <1.0 ng/mL Reference Range: .This test was developed and its performance characteristicsdetermined by [facility]. It has not been cleared o rapproved by the Food and Drug Administration.Cotinine levels greater than 20.0 are consistent withtheuse of tobacco or tobacco cessation products.Performed at: [facility] Lab[address] [id number] Director: Felicitas Tony MD, Phone: [phone] at: [address] [id number] Director: Roque Alex PhD, Phone: [phone] Auto (Bld) [#/Vol]on 18-44-5311Ffgifapwe (Bld) [#/Vol]0.0 10 3/uL0.0-0.1FWadsworth-Rittman HospitalBasophils/100 WBC Auto (Bld)on 93-13-5056Lvbsslmai/100 WBC (Bld)0.7 %0.2-2.0[facility] Eosinophils/100 WBC Auto (Bld)on 53-82-5949Fxwrodntjxp/100 WBC (Bld)2.1 %0.9-7.0 [facility] FoundationErythrocyte distribution width Auto (RBC) [Ratio]on 83-94-9798Ntrzrarhatd distribution width (RBC) [Ratio]14.1 %11.0-15.0 [facility] FoundationEstimated glomerular filtration rate (GFR) non- Americanon 31-61-7680XUA/1.73 sq M.predicted among non-blacks MDRD (S/P/Bld) [Vol rate/Area]mL/min/{1.73_m2}>=60[facility] Globulin Calc (S) [Mass/Vol]on 40-89-8393Agyaovwm (S) [Mass/Vol]3.3 g/dL [facility] FoundationHematocrit Auto (Bld) [Volume fraction]on 91-05-5471Jpbjkwzxta (Bld) [Volume fraction]39.9 %36.0-48.0[facility] FoundationHemoglobin [Mass/volume] in Bloodon 58-89-0343Agfqeqjqft (Bld) [Mass/Vol]12.6 g/dL12.0-16.0[facility] FoundationLaboratory - Chemistry and Chemistry - challengeon 24-19-7029Nnzxunb [Mass/Vol]3.4 g/dL 3.4-5.0[facility] FoundationALP [Catalytic activity/Vol]75 U/L46-116 [facility] FoundationALT [Catalytic activity/Vol]41 U/L14-59 [facility] FoundationAST [Catalytic activity/Vol]22 U/L15-37 [facility] FoundationBilirubin [Mass/Vol]0.8 mg/dL0.2-1.0[facility] FoundationCalcium [Mass/Vol]8.6 mg/dL8.5-10.1FWadsworth-Rittman HospitalChloride [Moles/Vol]104 mmol/G13-359AjuxcfgfxCleveland Clinic FoundationCO2 [Moles/Vol]29.9 mmol/L21.0-32.0[facility] Creatinine [Mass/Vol]0.62 mg/dL0.55-1.02[facility] GFR/1.73 sq M.predicted MDRD (S/P/Bld) [Vol rate/Area]mL/min/{1.73_m2}>=60 [facility] FoundationGlucose [Mass/Vol]82 mg/pE36-640FjcdxqvlzCleveland Clinic FoundationMagnesium [Mass/Vol]2.1 mg/dL1.8-2.4FWadsworth-Rittman HospitalPotassium [Moles/Vol]4.1 mmol/L3.5-5.1FWadsworth-Rittman HospitalProtein [Mass/Vol]6.7 g/dL6.4-8.2FParkview Healthodium [Moles/Vol]140 mmol/J120-506QhueqciskCleveland Clinic FoundationUrea nitrogen [Mass/Vol]21.0 mg/dLHigh7.0-18.0[facility] FoundationUrea nitrogen/Creatinine [Mass ratio]33.9 mg/mgCleveland Clinic Foundation Laboratory - Hematology and Cell countson 64-27-7274Glxinhmg granulocytes/100 WBC (Bld)0.2 %0.0-0.5FWadsworth-Rittman HospitalLeukocytes [#/volume] corrected for nucleated erythrocytes in Blood by Automated counon 74-96-9405KGZ corrected for nucl RBC Auto (Bld) [#/Vol]5.7 10 3/uL4.0-11.0[facility] FoundationLymphocytes Auto (Bld) [#/Vol]on 82-98-1216Qgjevovqudu (Bld) [#/Vol]2.3 10 3/uL1.2-3.8[facility] FoundationLymphocytes/100 WBC Auto (Bld)on 07-85-3873Swjxlocelsp/100 WBC (Bld)40.0 %20.5-60.0C[facility] FoundationMCH Auto (RBC) [Entitic mass]on 92-41-8820OJD (RBC) [Entitic mass]30.4 pg26.7-34.0C[facility] Clinic FoundationMCHC Auto (RBC) [Mass/Vol]on 70-29-6025DETQ (RBC) [Mass/Vol]31.6 g/dL29.9-35.2FWadsworth-Rittman HospitalMCV Auto (RBC) [Entitic vol]on 75-08-8817TBZ (RBC) [Entitic vol] 96.1 fL81.0-99.0[facility] FoundationMonocytes Auto (Bld) [#/Vol]on 63-99-3010Tyjmlqpmv (Bld) [#/Vol]0.7 10 3/uL0.3-0.8[facility] FoundationMonocytes/100 WBC Auto (Bld)on 50-59-4485Ylgvhetvs/100 WBC (Bld)11.6 % 1.7-12.0[facility] FoundationNeutrophils Auto (Bld) [#/Vol]on 14-92-8092Ealataogdti (Bld) [#/Vol]2.6 10 3/uL1.4-6.5FWadsworth-Rittman HospitalNeutrophils/100 WBC Auto (Bld)on 46-54-0330Jjvtpzcslor/100 WBC (Bld)45.4 % 43.0-75.0[facility] FoundationNo Panel Informationon 01-07-2024 Eosinophils # (Auto)0.1 10 3/uL0.0-0.7FWadsworth-Rittman HospitalImmature Granulocyte # (Auto)0.01 10 3/uL0.00-0.03[facility] Phosphorus Level3.8 mg/dL2.6-4.7FWadsworth-Rittman HospitalPlatelet mean volume Auto (Bld) [Entitic vol]on 21-86-1719Wrboptim mean volume (Bld) [Entitic vol]9.7 fL9.5-13.5FWadsworth-Rittman HospitalPlatelets Auto (Bld) [#/Vol] on 08-88-5469Tbmnfqrmt (Bld) [#/Vol]244 10 3/kS864-265ZhcdyfnppCleveland Clinic FoundationRBC Auto (Bld) [#/Vol]on 35-14-1506HSI (Bld) [#/Vol]4.15 10 6/uLLow 4.20-5.40[facility] County Hospitalerum or plasma albumin/globulin mass ratioon 96-67-5118Jjkleci/Globulin [Mass ratio]1.0 {ratio}[facility] Hospitalerum or plasma anion gap determinationon 46-14-5814Sgfhh gap [Moles/Vol]10.2 mmol/LFWadsworth-Rittman HospitalXR Hip - right 3 Viewson 36-45-3228Znmpgoq Result: November 18, 2023 x-rays AP and lateral of the right hip demonstrate a Press-Fit hip replacement good position alignment without evidence of loosening fracture or failure Impression: Stable appearance of right hip replacement Kameron Barry D.O.[facility] HospitalRadiology Study observation (narrative)[facility] CenterCOVID/FLU/RSV RT-PCRon 26-67-7510OJWC-CoV-2 (COVID-19) RNA GÓMEZ+probe Ql (Unsp spec)PositiveNowright memorial hospital Smart GPS Backpack Other COVID/FLU/RSV RT-PCRNegativeNowright memorial hospital Smart GPS Backpack Other Alanine aminotransferase [Enzymatic activity/volume] in Serum or PlasmaOrdered By: Joshua Phipps on 27-88-3577JFS [Catalytic activity/Vol]20 U/L7-52[facility] FoundationAlbumin [Mass/volume] in Serum or Plasma by Bromocresol green (BCG) dye binding methoOrdered By: Joshua Phipps on 09-56-4623Hkczdzc BCG dye [Mass/Vol]4.0 g/dL3.5-5.7FWadsworth-Rittman HospitalAlkaline phosphatase [Enzymatic activity/volume] in Serum or PlasmaOrdered By: Joshua Phipps on 88-85-4306QWA [Catalytic activity/Vol]88 U/L 34-104C[facility] Clinic FoundationAspartate aminotransferase [Enzymatic activity/volume] in Serum or PlasmaOrdered By: Joshua Phipps on 94-31-2819OCU [Catalytic activity/Vol]16 U/M09-03YdlzgcaihCleveland Clinic FoundationBasophils Auto (Bld) [#/Vol]Ordered By: Joshua Waggonerrow on 87-83-8699Eohwzeeop (Bld) [#/Vol]0.0 10*3/uL0.0-0.2FWadsworth-Rittman HospitalBasophils/100 WBC Auto (Bld)Ordered By: Joshua Moise on 50-51-4697Iguyikwcg/100 WBC (Bld)0.5 %. [facility] FoundationBilirubin.total [Mass/volume] in Serum or PlasmaOrdered By: Joshua Phipps on 06-54-5705Hskpugkos [Mass/Vol]0.4 mg/dL 0.3-1.0[facility] FoundationCalcium [Mass/volume] in Serum or Plasma Ordered By: Joshua Phipps on 83-03-6609Aolkmts [Mass/Vol]8.9 mg/dL8.6-10.3 [facility] FoundationCarbon dioxide, total [Moles/volume] in Serum or PlasmaOrdered By: Joshua Phipps on 79-16-6914KK9 [Moles/Vol]32.0 mmol/L 21.0-31.0[facility] FoundationChloride [Moles/volume] in Serum or PlasmaOrdered By: Joshua Moise 06-01-3565Rvrsgbpo [Moles/Vol]105 mmol/L 98-107[facility] FoundationCreatinine [Mass/volume] in Serum or PlasmaOrdered By: Joshua Moise on 32-61-6188Rdhcphchdn [Mass/Vol]0.53 mg/dL 0.60-1.20[facility] FoundationEosinophils Auto (Bld) [#/Vol]Ordered By: Joshua Moise on 11-90-1852Uejdppethsx (Bld) [#/Vol]0.1 10*3/uL0.0-0.45 [facility] FoundationEosinophils/100 WBC Auto (Bld)Ordered By: Joshua Phipps on 96-68-3023Kehpknigdch/100 WBC (Bld)1.7 %.[facility] FoundationErythrocyte distribution width Auto (RBC) [Ratio]Ordered By: Joshua Phipps on 93-87-4306Xrsndshonbx distribution width (RBC) [Ratio]14.8 % 11.9-15.3FWadsworth-Rittman HospitalGlobulin Calc (S) [Mass/Vol]Ordered By: Joshua Phipps on 60-16-3921Wdgqcxzg (S) [Mass/Vol]2.4 g/dLCleveland Clinic FoundationGlucose [Mass/volume] in Serum or PlasmaOrdered By: Joshua Phipps on 66-65-5267Pnlsdvb [Mass/Vol]94 mg/aR68-425CdtyhperhCleveland Clinic FoundationComment on above:ADA recommended reference rangeRandom Glucose Reference Range is dependent on time and content of last meal. Glucose of more than 200 mg/dL in a nonstressed, ambulatory subject supports the diagnosisof Diabetes Mellitus.Hematocrit Auto (Bld) [Volume fraction]Ordered By: Joshua Phipps on 15-45-7221Cjeiipnwns (Bld) [Volume fraction]38.1 %34.0-46.4FWadsworth-Rittman HospitalHemoglobin [Mass/volume] in BloodOrdered By: Joshua Phipps on 01-83-3325Qcrzlglwas (Bld) [Mass/Vol]12.4 g/dL11.8-15.4FWadsworth-Rittman HospitalLeukocytes [#/volume] corrected for nucleated erythrocytes in Blood by Automated counOrdered By: Joshua Phipps on 08-19-2023 WBC corrected for nucl RBC Auto (Bld) [#/Vol]6.6 10*3/uL3.8-11.6FWadsworth-Rittman HospitalLymphocytes Auto (Bld) [#/Vol]Ordered By: Joshua Phipps on 41-55-8920Qhjtmcgqfxl (Bld) [#/Vol]1.5 10*3/uL1.00-4.8[facility] FoundationLymphocytes/100 WBC Auto (Bld)Ordered By: Joshua Phipps on 40-68-3106Cpfwsyyoaqv/100 WBC (Bld)22.9 %.[facility] Auto (RBC) [Entitic mass]Ordered By: Joshua Phipps on 41-89-8816IDL (RBC) [Entitic mass]29.7 pg24.7-34.3FPike Community Hospital Auto (RBC) [Mass/Vol]Ordered By: Joshua Phipps on 84-87-6842LRUN (RBC) [Mass/Vol]32.6 g/dL 32.0-35.0[facility] FoundationMCV Auto (RBC) [Entitic vol]Ordered By: Joshua Phipps on 15-42-7616NAV (RBC) [Entitic vol]91.1 iP14-077UkjsfawoiCleveland Clinic FoundationMagnesium [Mass/volume] in Serum or PlasmaOrdered By: Joshua Phipps on 33-29-5887Hoepcghio [Mass/Vol]2.0 mg/dL1.9-2.7FWadsworth-Rittman HospitalMonocytes Auto (Bld) [#/Vol]Ordered By: Joshua Phipps on 20-81-4740Fjgkpwwxd (Bld) [#/Vol]0.5 10*3/uL0.0-0.8[facility] FoundationMonocytes/100 WBC Auto (Bld)Ordered By: Joshua Phipps on 08-19-2023 Monocytes/100 WBC (Bld)8.3 %.[facility] FoundationNeutrophils Auto (Bld) [#/Vol]Ordered By: Joshua Phipps on 03-77-7061Mkdbyrfdtfr (Bld) [#/Vol] 4.4 10*3/uL1.8-7.7FWadsworth-Rittman HospitalNeutrophils/100 WBC Auto (Bld)Ordered By: Joshua Phipps on 76-18-9888Kjludzqnily/100 WBC (Bld)66.6 %. [facility] FoundationNo Panel InformationOrdered By: Joshua Phipps on 84-89-1690Npyqhqaib GFR (CKD-EPI)> 60.0 mL/MinCleveland Clinic FoundationPharmacy Creatinine Clearance (ChemN/AFWadsworth-Rittman Hospital Nucleated erythrocytes [Presence] in Blood by Automated countOrdered By: Joshua Phipps on 61-38-9663Ehglusnlg RBC Auto Ql (Bld)0.1 /100{WBC}0-0.5FWadsworth-Rittman HospitalPhosphate [Mass/volume] in Serum or PlasmaOrdered By: Joshua Phipps on 99-74-1221Ehfxcpnqe [Mass/Vol]3.9 mg/dL2.5-4.5FWadsworth-Rittman HospitalPlatelet mean volume Auto (Bld) [Entitic vol]Ordered By: Joshua Phipsp on 44-90-6502Odyndusg mean volume (Bld) [Entitic vol]8.3 fL 6.3-10.7FWadsworth-Rittman HospitalPlatelets Auto (Bld) [#/Vol]Ordered By: Joshua Phipps on 33-80-0295Qjhifnizn (Bld) [#/Vol]275 10*3/zJ164-986BaawenzbeCleveland Clinic FoundationPotassium [Moles/volume] in Serum or PlasmaOrdered By: Joshua Phipps on 06-88-5742Xhdtbnqfh [Moles/Vol]4.2 mmol/L3.5-5.1FWadsworth-Rittman HospitalProtein [Mass/volume] in Serum or PlasmaOrdered By: Joshua Phipps on 67-26-9182Tagmdvi [Mass/Vol]6.4 g/dL6.4-8.9C[facility] FoundationRBC Auto (Bld) [#/Vol]Ordered By: Joshua Phipps on 22-37-2448LBZ (Bld) [#/Vol]4.18 10*6/uL3.60-5.00[facility] County Hospitalerum or plasma albumin/globulin mass ratioOrdered By: Joshua Phipps on 08-19-2023 Albumin/Globulin [Mass ratio]1.7 {ratio}[facility] Hospitalerum or plasma anion gap determinationOrdered By: Joshua Phipps on 18-85-1776Gbvgj gap [Moles/Vol]7.2 mmol/L6.0-15.0[facility] Hospitalodium [Moles/volume] in Serum or PlasmaOrdered By: Joshua Phipps on 05-90-9947Gsdbrn [Moles/Vol]140 mmol/Y190-672CipdausexCleveland Clinic FoundationUrea nitrogen [Mass/volume] in Serum or PlasmaOrdered By: Joshua Phipps on 30-82-0157Euvp nitrogen [Mass/Vol]21 mg/dL7-25C[facility] FoundationWBC Auto (Bld) [#/Vol]Ordered By: Joshua Phipps on 01-35-0974UGT (Bld) [#/Vol]6.6 10*3/uL 3.8-11.6FWadsworth-Rittman HospitalOffice Visiton 05-65-8557Jgmdak-up [id number] Thiago Sabillon Denise 1950 F Date Provider Department Center 04/25/2023 3848-BRENNA BROUSSARD [facility] Family History Problem Relation Age of Onset Transient ischemic attack Father Family Status - Relation Status Age at Father Level of Service:22798 OK OFFICE/OUTPATIENT ESTABLISHED MOD MDM 30-39 [facility] CenterP[facility]G PAN[facility] 2: 30 to 65on 09-22-2022.. NormalThe East Liverpool City HospitalComment on above:Performed By: #### [id number] #### [facility] [address] [place] [address] Dr. Bree ScottAge Gdln ACOG TestingCommentMcKitrick HospitalComment on above:Result Comment: <21 or >65 or no age providedPerformed By: #### [id number] #### [facility] [address] [place] [address] Dr. Bree ScottDIAGNOSIS:CommentNoMercy Health [facility]erm[facility] on above: Result Comment: NEGATIVE FOR INTRAEPITHELIAL LESION OR MALIGNANCY. CELLULAR CHANGES ASSOCIATED WITH ATROPHY ARE PRESENT.Performed By: #### [id number] #### [facility] [address] [place] [address] Dr. Bree ScottMethodology:CommentNoMercy Health Clermont Hospital on above: Result Comment: This liquid based ThinPrep(R) pap test was screened with the use of an image guided system.Performed By: #### [id number] #### [facility] [address] [place] [address] Dr. Bree ScottNote:CommentAdena Health System on above:Result Comment: The Pap smear is a screening test designed to aid in the detection of premalignant and malignant conditions of the uterine cervix. It is not a diagnostic procedure and should not be used as the sole means of detecting cervical cancer. Both false-positive and false-negative reports do occur. .Performed By: #### [id number] #### [facility] [address] [place] [address] Dr. Bree ScottPerformed by:CommentAdena Health System on above: Result Comment: Kuldeep Rodriguez, Woodworker (ASCP)Performed By: #### [id number] #### [facility] [address] [place] [address] Dr. Bree ScottSpecimen adequacy:CommentAdena Health System on above:Result Comment: Satisfactory for evaluation. Endocervical component may not be distinguished in cases of atrophy.Performed By: #### [id number] #### [facility] [address] [place] [address] Dr. Bree ColbertATININEon [id number] [Mass/Vol]0.67 mg/dLNormal 0.55-1.02[facility] on above:Performed By: #### CREA #### [facility] [address] [place] [address] Dr. Giron ChangEGFR-AF MALAGASY>60Normal>=60[facility] on above:Performed By: #### CREA #### [facility] [address] [place] [address] Dr. Bree JulianGFR-NON AF MALAGASY>60Normal>=60[facility] on above:Performed By: #### CREA #### [facility] [address] [place] [address] Dr. Bree Burch ABD/PELVIS WO W CONon [id number] ABD/PELVIS WO W CON EXAMINATION: CTA ABD/PELVIS [...] Electronically authenticated by: JACK SABILLON Date: 2022-06-12 21:49NoCoshocton Regional Medical CenterUS EXT NON VASC LIMITED RTon [id number] EXT NON VASC LIMITED RTEXAMINATION: US EXT NON VASC LIMITED RT HISTORY: [...] Electronically authenticated by: JACK SABILLON Date: 2022-05-21 10:04[facility] AUTO DIFFon [id number] #0.0 103/ulNormal0.0-0.1The [facility] HospitalComment on above:Performed By: #### CBC #### [facility] [address] [address] [address] Bree ScottBasophils/100 WBC (Bld)0.6 %Normal0.2-2.0The [facility] Comment on above:Performed By: #### CBC #### [facility] [address] [address] [address] Bree Resendiz #0.2 103/ulNormal0.0-0.7The [facility] HospitalComment on above: Performed By: #### CBC #### [facility] [address] [place] [address] Dr. Bree Julianosinophils/100 WBC (Bld)2.6 %Normal0.9-7.0The [facility] Comment on above:Performed By: #### CBC #### [facility] [address] [place] [address] Dr. Bree Julianrythrocyte distribution width (RBC) [Ratio]13.3 %Knjpii55.0-15.0 The [facility] HospitalComment on above:Performed By: #### CBC #### [facility] [address] [place] [address] Dr. Bree ScottHematocrit (Bld) [Volume fraction]40.5 %Hpvvzv64.0-48.0The [facility] HospitalComment on above:Performed By: #### CBC #### [facility] [address] [place] [address] Dr. Bree ScottHemoglobin (Bld) [Mass/Vol]13.1 g/aUEaajck88.0-16.0The [facility] HospitalComment on above:Performed By: #### CBC #### [facility] [address] [place] [address] Dr. Bree Bush #0.01 10e3/ulNormal0.00-0.03The [facility] HospitalComment on above:Performed By: #### CBC #### [facility] [address] [place] [address] Dr. Bree Bush %0.2 %Normal0.0-0.5The [facility] HospitalComment on above: Performed By: #### CBC #### [facility] [address] [address] [address] Bree Alvarez #2.1 103/ulNormal1.2-3.8[facility] on above:Performed By: #### CBC #### [facility] [address] [address] [address] Bree Davilahocytes/100 WBC (Bld)31.8 %Sznryj85.5-60.0The [facility] HospitalComment on above:Performed By: #### CBC #### [facility] [address] [place] [address] Dr. Bree Avilse DIFF REQNONormalThe [facility] HospitalComment on above: Performed By: #### CBC #### [facility] [address] [place] [address] Dr. Bree Givens (RBC) [Entitic mass]30.5 tlCpsjbz13.7-34.0The [facility] HospitalComment on above:Performed By: #### CBC #### [facility] [address] [place] [address] Dr. Bree Adorno (RBC) [Mass/Vol]32.3 g/vVWlnfux47.9-35.2[facility] on above:Performed By: #### CBC #### [facility] [address] [place] [address] Dr. Bree Adorno (RBC) [Entitic vol]94.4 gSHjqpvx54.0-99.0The [facility] HospitalComment on above:Performed By: #### CBC #### [facility] [address] [place] [address] Dr. Bree Godinez #0.6 103/ulNormal0.3-0.8[facility] on above:Performed By: #### CBC #### [facility] [address] [place] [address] Dr. Bree Mayerocytes/100 WBC (Bld)9.9 %Normal1.7-12.0The [facility] Comment on above:Performed By: #### CBC #### [facility] [address] [place] [address] Dr. Bree Gar #3.5 103/ulNormal1.4-6.5The [facility] HospitalComment on above:Performed By: #### CBC #### [facility] [address] [place] [address] Dr. Bree Estrellautrophils/100 WBC (Bld)54.9 %Zdsgbh17.0-75.0The [facility] HospitalComment on above:Performed By: #### CBC #### [facility] [address] [place] [address] Dr. Bree Mackenzie mean volume (Bld) [Entitic vol]9.2 fLCritically low 9.5-13.5The [facility] HospitalComment on above:Performed By: #### CBC #### [facility] [address] [place] [address] Dr. Bree ScottPLT243 103/djVyuquw453-005Fny [facility] HospitalComment on above: Performed By: #### CBC #### [facility] [address] [place] [address] Dr. Bree ScottRBC4.29 106/ulNormal4.20-5.40The [facility] HospitalComment on above:Performed By: #### CBC #### [facility] [address] [place] [address] Dr. Bree ScottWBC6.4 103/ulNormal4.0-11.0The [facility] HospitalComment on above: Performed By: #### CBC #### [facility] [address] [place] [address] Dr. Bree Mena M/2D COMPLETEon [id number] M/2D COMPLETE Patient: THIAGO SABILLON Exam Date: 04/24/2022 : 1950 Gender:F Ordering : LISA EATON Admission #: [id number] Family : DR KALLIE CHASE M.D. Order #: [id number] CLICK HERE TO VIEW EXAM ECHOCARDIOGRAM REPORT [...] by: Balta Jane M.D. on 04/24/2022 at 16:45McKitrick HospitalLIPID PROFILEon [id number]-HDL RATIO NORMSEE BELOWMcKitrick HospitalComup health system on above:Result Comment: 3.3 - 4.4 LOW RISK 4.4 - 7.1 AVERAGE RISK 7.1 - 11.0 MODERATE RISK >11.0 HIGH RISKPerformed By: #### CMP, LIPID #### [facility] [address] [address] [address] Bree Sheppardesterol [Mass/Vol]136 mg/dLNormal<=200[facility] Comment on above:Performed By: #### CMP, LIPID #### [facility] [address] [address] [address] Bree Sheppardesterol in HDL [Mass/Vol]64 mg/dLCritically uwmx66-21DubMercy Health West HospitalComment on above:Performed By: #### CMP, LIPID #### [facility] [address] [address] [address] Bree Sheppardesterol in LDL [Mass/Vol]63.8 mg/dLMcKitrick HospitalComment on above:Performed By: #### CMP, LIPID #### [facility] [address] [address] [address] Bree Santacruz.total/Cholesterol in HDL [Mass ratio]2.1 {ratio} NormalMercy Health West HospitalComment on above:Performed By: #### CMP, LIPID #### [facility] [address] [address] [address] Bree Carrillo NORMAL> or = 60 mg/dl - LOW CARDIOVASCULAR RISK <40 mg/dl - HIGH CARDIOVASCULAR RISKNoCoshocton Regional Medical CenterComment on above:Performed By: #### CMP, LIPID #### [facility] [address] [address] [address] Bree Ponce CALC NORMALSEE BELOWNoCoshocton Regional Medical CenterComment on above:Result Comment: <100 mg/dl OPTIMAL 100 - 129 mg/dl NEAR OR ABOVE OPTIMAL 130 - 159 mg/dl BORDERLINE HIGH 160 - 189 mg/dl HIGH >190 mg/dl VERY HIGH Performed By: #### CMP, LIPID #### [facility] [address] [address] [address] Bree ScottTriglyceride [Mass/Vol]41 mg/dLNormal<=150The [facility] Comment on above:Performed By: #### CMP, LIPID #### [facility] [address] [place] [address] Dr. Bree ScottVLDL CALC8.2 mg/dLNoCoshocton Regional Medical CenterComment on above: Performed By: #### CMP, LIPID #### [facility] [address] [place] [address] Dr. Bree ScottPROF 14(COMP METB)on [id number] [Mass/Vol]3.4 g/dLNormal 3.4-5.0[facility] on above:Performed By: #### CMP, LIPID #### [facility] [address] [place] [address] Dr. Bree ScottAlbumin/Globulin [Mass ratio]1.2 {ratio}NormalThe [facility] on above:Performed By: #### CMP, LIPID #### [facility] [address] [address] [address] Bree Cordova [Catalytic activity/Vol]72 U/FJdqffd66-329Jxs [facility] on above:Performed By: #### CMP, LIPID #### [facility] [address] [place] [address] Dr. Bree Clemens [Catalytic activity/Vol]45 U/RGmxmgo17-57Omd [facility] on above:Performed By: #### CMP, LIPID #### [facility] [address] [address] [address] Bree ScottAnion gap [Moles/Vol]9.1 mmol/LNormalThe [facility] HospitalComment on above:Performed By: #### CMP, LIPID #### [facility] [address] [address] [address] Bree ScottAST [Catalytic activity/Vol]22 U/NVlwrkq03-22Rpv [facility] HospitalComment on above:Performed By: #### CMP, LIPID #### [facility] [address] [address] [address] Bree ScottBilirubin [Mass/Vol]0.6 mg/dLNormal0.2-1.0The [facility] Comment on above:Performed By: #### CMP, LIPID #### [facility] [address] [place] [address] Dr. Bree ScottCalcium [Mass/Vol]8.6 mg/dLNormal8.5-10.1The [facility] Comment on above:Performed By: #### CMP, LIPID #### [facility] [address] [address] [address] Bree ScottChloride [Moles/Vol]106 mmol/MCxlcme63-464Kzc [facility] Comment on above:Performed By: #### CMP, LIPID #### [facility] [address] [place] [address] Dr. Bree ScottCO2 [Moles/Vol]31.4 mmol/YQchskg87.0-32.0The [facility] Comment on above:Performed By: #### CMP, LIPID #### [facility] [address] [address] [address] Bree ScottCreatinine [Mass/Vol]0.60 mg/dLNormal0.55-1.02The [facility] HospitalComment on above:Performed By: #### CMP, LIPID #### [facility] [address] [place] [address] Dr. Bree JulianGFR-AF MALAGASY>60Normal>=60The [facility] HospitalComment on above:Performed By: #### CMP, LIPID #### [facility] [address] [address] [address] Bree JulianGFR-NON AF MALAGASY>60Normal>=60The [facility] Hospitalment on above:Performed By: #### CMP, LIPID #### [facility] [address] [address] [address] Bree ScottGlobulin (S) [Mass/Vol]2.9 g/dLNoCoshocton Regional Medical CenterComment on above:Performed By: #### CMP, LIPID #### [facility] [address] [address] [address] Bree ScottGlucose [Mass/Vol]95 mg/aXRtctxz68-793GcnMercy Health West Hospital Comment on above:Performed By: #### CMP, LIPID #### [facility] [address] [address] [address] Bree ScottPotassium [Moles/Vol]4.5 mmol/LNormal3.5-5.1The [facility] Comment on above:Performed By: #### CMP, LIPID #### [facility] [address] [address] [address] Bree ScottProtein [Mass/Vol]6.3 g/dLCritically low6.4-8.2The [facility] HospitalComment on above:Performed By: #### CMP, LIPID #### [facility] [address] [address] [address] Bree ScottSodium [Moles/Vol]142 mmol/SVxxbku026-726Dbc [facility] Comment on above:Performed By: #### CMP, LIPID #### [facility] [address] [address] [address] Bree ScottUrea nitrogen [Mass/Vol]28.0 mg/dLCritically high7.0-18.0The [facility] HospitalComment on above:Performed By: #### CMP, LIPID #### [facility] [address] [address] [address] Bree ScottUrea nitrogen/Creatinine [Mass ratio]46.7 mg/mgNoCoshocton Regional Medical CenterComment on above:Performed By: #### CMP, LIPID #### [facility] [address] [address] [address] Bree Sheldon METABOLIC PANELon 46-61-1394Ceyxfwh [Mass/Vol]8.9 mg/dL Normal8.6-10.3The [facility] HospitalComment on above:Order Comment: evaluate AtelectasisPerformed By: #### 57376, 15492 ####[facility] [place] [address], USAChloride [Moles/Vol]99 mmol/WCipqdd06-398Owa [facility] HospitalComment on above:Order Comment: evaluate AtelectasisPerformed By: #### 02393, 94151 ####[facility] [place] [address], [place] CO2 [Moles/Vol]30 mmol/FBhrudj57-39Rtq [facility] Comment on above:Order Comment: evaluate AtelectasisPerformed By: #### 36269, 29950 ####[facility] [place] [address], USACreatinine [Mass/Vol]0.51 mg/dLLow0.60-1.20The [facility] HospitalComment on above:Order Comment: evaluate AtelectasisPerformed By: #### 23069, 51381 ####[facility] [place] [address], USAGFR/1.73 sq M.predicted among blacks MDRD (S/P/Bld) [Vol rate/Area]mL/min/{1.73_m2}Normal>60The [facility] Comment on above:Order Comment: evaluate AtelectasisPerformed By: #### 55548, 97823 ####[facility] [place] [address], USAGFR/1.73 sq M.predicted among non-blacks MDRD (S/P/Bld) [Vol rate/Area]mL/min/{1.73_m2}Normal>60The [facility] Comment on above:Order Comment: evaluate AtelectasisPerformed By: #### 80566, 23549 ####[facility] [place] [address], USAGlucose [Mass/Vol]82 mg/qWVagfqm58-906Yif [facility] HospitalComment on above:Order Comment: evaluate AtelectasisPerformed By: #### 17052, 76019 ####[facility] [place] [address], USAPotassium [Moles/Vol]4.0 mmol/LNormal3.5-5.1The [facility] HospitalComment on above:Order Comment: evaluate Atelectasis Performed By: #### 75880, 20192 ####[facility] [place] [address], USASodium [Moles/Vol]135 mmol/AWfz614-295Ian [facility] HospitalComment on above:Order Comment: evaluate AtelectasisPerformed By: #### 35099, 45488 ####[facility] [place] [address], USAUrea nitrogen [Mass/Vol]17 mg/dL Normal7-25The [facility] HospitalComment on above:Order Comment: evaluate AtelectasisPerformed By: #### 12484, 90903 ####[facility] [place] [address], USACBC COMPLETE BLOOD COUNTon 24-42-4947Gtuoduyliky distribution width (RBC) [Ratio]13.2 %Lrbejj81.5-15.0The [facility] HospitalComment on above:Order Comment: No: Do not add to previous drawPerformed By: #### 07346 #### [facility] [address] [place] [address], USAHematocrit (Bld) [Volume fraction]33.1 %Low36.0-45.0The [facility] HospitalComment on above:Order Comment: No: Do not add to previous drawPerformed By: #### 08195 #### [facility] [address] [place] [address], [facility] HOSPITALHemoglobin (Bld) [Mass/Vol]10.4 g/dLLow12.0-15.0The [facility] HospitalComment on above:Order Comment: No: Do not add to previous drawPerformed By: #### 75948 #### [facility] [address] [place] [address], [facility] (RBC) [Entitic mass]30.1 wyFkvimp93.0-33.0The [facility] HospitalComment on above:Order Comment: No: Do not add to previous drawPerformed By: #### 70490 #### [facility] [address] [place] [address], [facility]LEY HOSPITALMCHC (RBC) [Mass/Vol]31.4 g/dLLow32.0-35.0The [facility] HospitalComment on above:Order Comment: No: Do not add to previous drawPerformed By: #### 04418 #### [facility] [address] [place] [address], [facility] (RBC) [Entitic vol]95.9 kNRvtzxi45.0-98.0The [facility] HospitalComment on above:Order Comment: No: Do not add to previous drawPerformed By: #### 40605 #### [facility] [address] [place] [address], USANucleated RBC/100 WBC (Bld) [Ratio]0 %Normal0-0The [facility] HospitalComment on above:Order Comment: No: Do not add to previous drawPerformed By: #### 52385 #### [facility] [address] [place] [address], USAPLAT MCF417 10*3/vTUxqcoe444-154Hzc [facility] HospitalComment on above:Order Comment: No: Do not add to previous draw Performed By: #### 91763 #### [facility] [address] [place] [address], USARBC (Bld) [#/Vol]3.45 10*6/uLLow3.80-5.00The [facility] HospitalComment on above:Order Comment: No: Do not add to previous drawPerformed By: #### 32017 #### [facility] [address] [place] [address], USAWBC (Bld) [#/Vol]8.08 10*3/uLNormal4.00-10.60The [facility] HospitalComment on above:Order Comment: No: Do not add to previous drawPerformed By: #### 60039 #### [facility] [address] [place] [address], USAMAGNESIUM BLOODon 86-70-9087Ofdrxoiht [Mass/Vol]1.9 mg/dL Normal1.9-2.7The [facility] HospitalComment on above:Order Comment: evaluate AtelectasisPerformed By: #### 37305, 07852 ####[facility] [place] [address], USAPOC GLUCOSE LABon 36-95-6252Akpcguc [Mass/Vol]87 mg/oZKmfaxk32-426Pfm [facility] HospitalComment on above:Performed By: #### 57418 #### [facility] [address] [place] [address], USAGlucose [Mass/Vol]110 mg/iPVgif00-575Hiv [facility] HospitalComment on above:Performed By: #### 46032 #### [facility] [address] [place] [address], USAGlucose [Mass/Vol]114 mg/zQCago51-964Qcg [facility] HospitalComment on above:Performed By: #### 89223 #### [facility] [address] [place] [address], USAPORTABLE CHEST 1 VIEWon 34-10-0917WBQMVHNJ CHEST 1 VIEW [facility] Department of Radiology [address] [place] [address] Patient Name: THIAGO SABILLON : 1950 Sex: F Age: Race: White Pt. Location: [place] [address] Patient Status: I Ordered Date: 03/27/2021 5:00:00 [...] persist. Electronically signed: Vernell Mcclure. Transcribed by: [email or web address], User Resident: Electronically Signed by: VERNELL MCCLURE @ 03/27/2021 07:43 AMNormalThe [facility] HospitalComment on above:Order Comment: evaluate AtelectasisBASIC METABOLIC PANELon 10-94-8360Ftppqrk [Mass/Vol]8.3 mg/dLLow 8.6-10.3The [facility] HospitalComment on above:Order Comment: evaluate AtelectasisPerformed By: #### 02694, 52951 ####[facility] [place] [address], USAChloride [Moles/Vol]102 mmol/QBtotpd16-833Uzs [facility] HospitalComment on above:Order Comment: evaluate AtelectasisPerformed By: #### 06133, 28595 ####[facility] [place] [address], USACO2 [Moles/Vol]31 mmol/HNhdieu54-89Vlj [facility] HospitalComment on above:Order Comment: evaluate AtelectasisPerformed By: #### 64441, 14076 ####[facility] [place] [address], USACreatinine [Mass/Vol]0.50 mg/dLLow0.60-1.20The [facility] HospitalComment on above:Order Comment: evaluate AtelectasisPerformed By: #### 31627, 05154 ####[facility] [place] [address], [place] GFR/1.73 sq M.predicted among blacks MDRD (S/P/Bld) [Vol rate/Area] mL/min/{1.73_m2}Normal>60The [facility] HospitalComment on above:Order Comment: evaluate AtelectasisPerformed By: #### 32730, 95584 ####[facility] [place] [address], [place] GFR/1.73 sq M.predicted among non-blacks MDRD (S/P/Bld) [Vol rate/Area] mL/min/{1.73_m2}Normal>60The [facility] HospitalComment on above:Order Comment: evaluate AtelectasisPerformed By: #### 04150, 05739 ####[facility] [place] [address], [place] Glucose [Mass/Vol]125 mg/dQIvkv02-690His [facility] Comment on above:Order Comment: evaluate AtelectasisPerformed By: #### 61582, 82925 ####[facility] [place] [address], USAPotassium [Moles/Vol]4.1 mmol/LNormal3.5-5.1The [facility] HospitalComment on above:Order Comment: evaluate AtelectasisPerformed By: #### 91404, 09349 ####[facility] [place] [address], USASodium [Moles/Vol]138 mmol/WIxqvnp547-456Pjz [facility] HospitalComment on above:Order Comment: evaluate Atelectasis Performed By: #### 56710, 28117 ####[facility] [place] [address], USAUrea nitrogen [Mass/Vol]18 mg/dLNormal7-25The [facility] HospitalComment on above:Order Comment: evaluate AtelectasisPerformed By: #### 87767, 31858 ####[facility] [place] [address], USACBC COMPLETE BLOOD COUNTon 23-48-3020Ymbzwndwlgl distribution width (RBC) [Ratio]13.4 %Esemcf31.5-15.0The [facility] HospitalComment on above:Order Comment: No: Do not add to previous drawNurse drawPerformed By: #### 62638 #### [facility] [address] [place] [address], USAHematocrit (Bld) [Volume fraction]29.3 %Low36.0-45.0The [facility] HospitalComment on above:Order Comment: No: Do not add to previous drawNurse drawPerformed By: #### 34624 #### [facility] [address] [place] [address], USAHemoglobin (Bld) [Mass/Vol]9.2 g/dLLow12.0-15.0The [facility] HospitalComment on above:Order Comment: No: Do not add to previous drawNurse drawPerformed By: #### 10552 #### [facility] [address] [place] [address], [facility] HOSPITALMCH (RBC) [Entitic mass]30.4 btKxkagr64.0-33.0The [facility] HospitalComment on above:Order Comment: No: Do not add to previous drawNurse drawPerformed By: #### 11510 #### [facility] [address] [place] [address], [facility] HOSPITALMCHC (RBC) [Mass/Vol]31.4 g/dLLow32.0-35.0The [facility] HospitalComment on above:Order Comment: No: Do not add to previous drawNurse drawPerformed By: #### 59985 #### [facility] [address] [place] [address], [facility] HOSPITALMCV (RBC) [Entitic vol]96.7 hYSarqhw71.0-98.0The [facility] HospitalComment on above:Order Comment: No: Do not add to previous drawNurse drawPerformed By: #### 20925 #### [facility] [address] [place] [address], USANucleated RBC/100 WBC (Bld) [Ratio]0 %Normal0-0The [facility] HospitalComment on above:Order Comment: No: Do not add to previous drawNurse drawPerformed By: #### 87152 #### [facility] [address] [place] [address], USAPLAT XHB684 10*3/fCOgoyap159-746Wbi [facility] HospitalComment on above:Order Comment: No: Do not add to previous drawNurse drawPerformed By: #### 28697 #### [facility] [address] [place] [address], USARBC (Bld) [#/Vol]3.03 10*6/uLLow3.80-5.00The [facility]riners HospitalComment on above:Order Comment: No: Do not add to previous drawNurse drawPerformed By: #### [id number] #### [facility] [address] [place] [address], USAWBC (Bld) [#/Vol]7.67 10*3/uLNormal4.00-10.60The [facility] HospitalComment on above:Order Comment: No: Do not add to previous drawNurse drawPerformed By: #### [id number] #### [facility] [address] [place] [address], USAMAGNESIUM BLOODon [id number] [Mass/Vol]1.9 mg/dL Normal1.9-2.7The [facility]riners HospitalComment on above:Order Comment: evaluate AtelectasisPerformed By: #### 98270, 98906 ####[facility] [place] [address], USAPOC GLUCOSE LABon [id number] [Mass/Vol]81 mg/qQCxicjf09-437Tik [facility] HospitalComment on above:Performed By: #### 87988 #### [facility] [address] [place] [address], USAGlucose [Mass/Vol]286 mg/sQZwnn33-874Nml [facility] HospitalComment on above:Performed By: #### [id number] #### [facility] [address] [place] [address], USAGlucose [Mass/Vol]164 mg/qVKblz46-584Gmz [facility] HospitalComment on above:Performed By: #### 81091 #### [facility] [address] [place] [address], USAPORTABLE CHEST 1 VIEWon [id number] CHEST 1 VIEW [facility] Department of Radiology [address] [facility] [address] Patient Name: THIAGO SABILLON : 1950 Sex: F Age: Race: White Pt. Location: [place] [address] Patient Status: I Ordered Date: 03/26/2021 5:00:00 [...] lung. Electronically signed: Vernell Mcclure. Transcribed by: [email or web address], User Resident: Electronically Signed by: VERNELL MCCLURE @ 03/26/2021 06:40 AMNormalThe [facility] Shriners HospitalComment on above:Order Comment: The Aptima SARS-CoV-2 assay is a nucleic acid amplification test intended for the qualitative detection of RNA from SARS-CoV-2 isolated and purified from nasopharyngeal (AML ANALYST),oropharyngeal (OP), nasal swab, sputum, and bronchoalveolar lavage (BAL) specimens from patients with signs and symptoms of infection who are suspected of COVID-19. Results are for the identification of SARS-CoV-2 RNA. The SARS-CoV-2 RNA is generally detectable during the acute phase of infection. The Aptima SARS-CoV-2 Assay on the Tuxebo and Tuxebo Fusion system is intended for use by laboratory personnel specifically instructed and trained in the operation of the Lafitte and Tuxebo Fusion system. The Aptima SARS-CoV-2 assay is [...] with clinical observations, patient history, and epidemiological information.BASIC METABOLIC PANELon [id number] [Mass/Vol]8.3 mg/dLLow8.6-10.3The [facility]ers HospitalComment on above:Order Comment: No: Do not add to previous drawPerformed By: #### [id number] #### [facility] [address] [place] [address], USAChloride [Moles/Vol]99 mmol/VWrnrfo77-217Brn [facility] HospitalComment on above:Order Comment: No: Do not add to previous drawPerformed By: #### 09518 #### [facility] [address] [place] [address], USACO2 [Moles/Vol]29 mmol/JSltwuk39-57Ekb [facility] HospitalComment on above:Order Comment: No: Do not add to previous draw Performed By: #### 92935 #### [facility] [address] [place] [address], USACreatinine [Mass/Vol]0.53 mg/dLLow0.60-1.20The [facility] HospitalComment on above:Order Comment: No: Do not add to previous drawPerformed By: #### [id number] #### [facility] [address] [place] [address], USAGFR/1.73 sq M.predicted among blacks MDRD (S/P/Bld) [Vol rate/Area]mL/min/{1.73_m2}Normal>60The [facility] Comment on above:Order Comment: No: Do not add to previous drawPerformed By: #### 19852 #### [facility] [address] [place] [address], USAGFR/1.73 sq M.predicted among non-blacks MDRD (S/P/Bld) [Vol rate/Area]mL/min/{1.73_m2}Normal>60The [facility] Comment on above:Order Comment: No: Do not add to previous drawPerformed By: #### [id number] #### [facility] [address] [place] [address], USAGlucose [Mass/Vol]104 mg/qTKfhc56-806Dks [facility] HospitalComment on above:Order Comment: No: Do not add to previous drawPerformed By: #### 73570 #### [facility] [address] [place] [address], USAPotassium [Moles/Vol]4.1 mmol/LNormal3.5-5.1The [facility] HospitalComment on above:Order Comment: No: Do not add to previous drawPerformed By: #### 96914 #### [facility] [address] [place] [address], USASodium [Moles/Vol]134 mmol/RBlu431-081Rfg [facility] HospitalComment on above:Order Comment: No: Do not add to previous drawPerformed By: #### [id number] #### [facility] [address] [place] [address], USAUrea nitrogen [Mass/Vol]21 mg/dLNormal7-25The [facility] HospitalComment on above:Order Comment: No: Do not add to previous drawPerformed By: #### [id number] #### [facility] [address] [place] [address], USACBC COMPLETE BLOOD COUNTon 88-73-1379Cprhrkutabz distribution width (RBC) [Ratio]13.4 %Cekkgg29.5-15.0The [facility] HospitalComment on above:Order Comment: No: Do not add to previous draw Performed By: #### 13867 #### [facility] [address] [place] [address], USAHematocrit (Bld) [Volume fraction]28.4 %Low36.0-45.0The [facility] HospitalComment on above:Order Comment: No: Do not add to previous drawPerformed By: #### [id number] #### [facility] [address] [place] [address], USAHemoglobin (Bld) [Mass/Vol]9.4 g/dLLow12.0-15.0The [facility] HospitalComment on above:Order Comment: No: Do not add to previous drawPerformed By: #### 28067 #### [facility] [address] [place] [address], USAMCH (RBC) [Entitic mass]31.0 vbQgvchr94.0-33.0The [facility] HospitalComment on above:Order Comment: No: Do not add to previous drawPerformed By: #### [id number] #### [facility] [address] [place] [address], [facility]PITALMCHC (RBC) [Mass/Vol]33.1 g/iLIatpxf53.0-35.0The [facility] HospitalComment on above:Order Comment: No: Do not add to previous drawPerformed By: #### 82525 #### [facility] [address] [place] [address], [facility] (RBC) [Entitic vol]93.7 pFVaruas24.0-98.0The [facility] HospitalComment on above:Order Comment: No: Do not add to previous drawPerformed By: #### [id number] #### [facility] [address] [place] [address], USANucleated RBC/100 WBC (Bld) [Ratio]0 %Normal0-0The [facility] HospitalComment on above:Order Comment: No: Do not add to previous drawPerformed By: #### 64531 #### [facility] [address] [place] [address], USAPLAT ZET863 10*3/mUCbgwhs764-972Pqv [facility] HospitalComment on above:Order Comment: No: Do not add to previous draw Performed By: #### 62833 #### [facility] [address] [place] [address], USARBC (Bld) [#/Vol]3.03 10*6/uLLow3.80-5.00The [facility] HospitalComment on above:Order Comment: No: Do not add to previous drawPerformed By: #### 45477 #### [facility] [address] [place] [address], USAWBC (Bld) [#/Vol]9.57 10*3/uLNormal4.00-10.60The [facility] HospitalComment on above:Order Comment: No: Do not add to previous drawPerformed By: #### 99620 #### [facility] [address] [place] [address], USAMAGNESIUM BLOODon 71-02-7007Kyaqygfmr [Mass/Vol]2.2 mg/dL Normal1.9-2.7The [facility] HospitalComment on above:Order Comment: No: Do not add to previous drawPerformed By: #### 00519 #### [facility] [address] [place] [address], USAPHOSPHORUS BLOODon 97-90-1855Fjgflffdp [Mass/Vol]2.6 mg/dL Normal2.5-5.0The [facility] HospitalComment on above:Order Comment: No: Do not add to previous drawPerformed By: #### 69624 #### [facility] [address] [place] [address], USAPOC GLUCOSE LABon [id number] [Mass/Vol]129 mg/dLHigh 70-100The [facility] HospitalComment on above:Performed By: #### 39789 #### [facility] [address] [place] [address], USAGlucose [Mass/Vol]129 mg/yZOkyh75-328Lex [facility] HospitalComment on above:Performed By: #### 88883 #### [facility] [address] [place] [address], USAPORTABLE CHEST 1 VIEWon [id number] CHEST 1 VIEW [facility] Department of Radiology [address] [place] [id number] Patient Name: THIAGO SABILLON : 1950 Sex: F Age: Race: White Pt. Location: [place] [address] Patient Status: I Ordered Date: 03/25/2021 5:00:00 [...] effusion Electronically signed: Zina Brenner. Transcribed by: [email or web address], User Resident: Electronically Signed by: ZINA BRENNER @ 03/25/2021 08:07 AMNormalMercy Health Clermont HospitalComment on above:Order Comment: evaluate for PneumothoraxTSH3 WITH REFLEX FT4on [id number] 3RD GENERATION1.06 uIU/mLNormal 0.34-5.60The [facility] HospitalComment on above:Order Comment: No: Do not add to previous drawPerformed By: #### 95770 #### [facility] [address] [place] [address], USABASIC METABOLIC PANELon 30-93-6873Agogmth [Mass/Vol]8.5 mg/dLLow8.6-10.3The [facility] HospitalComment on above:Order Comment: evaluate AtelectasisPerformed By: #### 04543, 64897 ####[facility] [place] [address], USAChloride [Moles/Vol]100 mmol/QAlpwwd37-108Ywi [facility] HospitalComment on above:Order Comment: evaluate AtelectasisPerformed By: #### 62349, 08379 ####[facility] [place] [address], [place] CO2 [Moles/Vol]27 mmol/GYqdevi81-55Ivx [facility] Comment on above:Order Comment: evaluate AtelectasisPerformed By: #### 24333, 51243 ####[facility] [place] [address], USACreatinine [Mass/Vol]0.70 mg/dLNormal0.60-1.20The [facility] HospitalComment on above:Order Comment: evaluate AtelectasisPerformed By: #### 36252, 77960 ####[facility] [place] [address], USAGFR/1.73 sq M.predicted among blacks MDRD (S/P/Bld) [Vol rate/Area]mL/min/{1.73_m2}Normal>60The [facility] Comment on above:Order Comment: evaluate AtelectasisPerformed By: #### 35712, 31629 ####[facility] [place] [address], USAGFR/1.73 sq M.predicted among non-blacks MDRD (S/P/Bld) [Vol rate/Area]mL/min/{1.73_m2}Normal>60The [facility] Comment on above:Order Comment: evaluate AtelectasisPerformed By: #### 04098, 52731 ####[facility] [place] [address], USAGlucose [Mass/Vol]122 mg/mCNlpv43-147Aqw [facility] HospitalComment on above:Order Comment: evaluate AtelectasisPerformed By: #### 16148, 03166 ####[facility] [place] [address], USAPotassium [Moles/Vol]4.7 mmol/LNormal3.5-5.1The [facility] HospitalComment on above:Order Comment: evaluate Atelectasis Performed By: #### 90716, 90499 ####[facility] [place] [address], USASodium [Moles/Vol]133 mmol/JNif970-550Wwd [facility] HospitalComment on above:Order Comment: evaluate AtelectasisPerformed By: #### 16982, 93121 ####[facility] [place] [address], USAUrea nitrogen [Mass/Vol]30 mg/dL High7-25The [facility] HospitalComment on above:Order Comment: evaluate AtelectasisPerformed By: #### 09214, 92733 ####[facility] [place] [address], USACBC COMPLETE BLOOD COUNTon 57-56-7633Dduthsivdyf distribution width (RBC) [Ratio]13.5 %Mbzdre68.5-15.0The [facility] HospitalComment on above:Order Comment: No: Do not add to previous draw Nurse drawPerformed By: #### 69442 #### [facility] [address] [place] [address], USAHematocrit (Bld) [Volume fraction]30.7 %Low36.0-45.0The [facility] HospitalComment on above:Order Comment: No: Do not add to previous draw Nurse drawPerformed By: #### [id number] #### [facility] [address] [place] [address], USAHemoglobin (Bld) [Mass/Vol]10.0 g/dLLow12.0-15.0The [facility] HospitalComment on above:Order Comment: No: Do not add to previous draw Nurse drawPerformed By: #### 66863 #### [facility] [address] [place] [address], [facility]OSPITALMCH (RBC) [Entitic mass]30.7 nuCihnju65.0-33.0The [facility] HospitalComment on above:Order Comment: No: Do not add to previous draw Nurse drawPerformed By: #### 56512 #### [facility] [address] [address], [facility] HOSPITALMCHC (RBC) [Mass/Vol]32.6 g/xDXownfs14.0-35.0The [facility] HospitalComment on above:Order Comment: No: Do not add to previous draw Nurse drawPerformed By: #### 60887 #### [facility] [address] [address], [facility] HOSPITALMCV (RBC) [Entitic vol]94.2 fJUdupbw19.0-98.0The [facility] HospitalComment on above:Order Comment: No: Do not add to previous draw Nurse drawPerformed By: #### 31653 #### [facility] [address] [place] [address], USANucleated RBC/100 WBC (Bld) [Ratio]0 %Normal0-0The [facility] HospitalComment on above:Order Comment: No: Do not add to previous draw Nurse drawPerformed By: #### 87790 #### [facility] [address] [place] [address], USAPLAT SGV902 10*3/xLXtgjjd933-290Jzw [facility] HospitalComment on above:Order Comment: No: Do not add to previous draw Nurse drawPerformed By: #### [id number] #### [facility] [address] [place] [address], USARBC (Bld) [#/Vol]3.26 10*6/uLLow3.80-5.00The [facility] HospitalComment on above:Order Comment: No: Do not add to previous draw Nurse drawPerformed By: #### 02666 #### [facility] [address] [place] [address], USAWBC (Bld) [#/Vol]14.84 10*3/uLHigh4.00-10.60The [facility] HospitalComment on above:Order Comment: No: Do not add to previous draw Nurse drawPerformed By: #### 93454 #### [facility] [address] [place] [address], USAMAGNESIUM BLOODon 34-28-8734Lpatvxfrq [Mass/Vol]2.4 mg/dL Normal1.9-2.7The [facility] HospitalComment on above:Order Comment: evaluate AtelectasisPerformed By: #### 32851, 96166 ####[facility] [place] [address], USAPOC GLUCOSE LABon 57-32-5593Acynjxx [Mass/Vol]168 mg/uLIhcs40-957Rjp [facility] HospitalComment on above:Performed By: #### 32860 #### [facility] [address] [place] [address], USAGlucose [Mass/Vol]119 mg/xQKnmg53-944Eku [facility] HospitalComment on above:Performed By: #### 52689 #### [facility] [address] [place] [address], USAGlucose [Mass/Vol]132 mg/hDJpla73-023Pfn [facility] HospitalComment on above:Performed By: #### 95028 #### [facility] [address] [place] [address], USAGlucose [Mass/Vol]104 mg/tNUnpn03-348Uzc [facility] HospitalComment on above:Performed By: #### 06572 #### [facility] [address] [place] [address], USAPORTABLE CHEST 1 VIEWon [id number] CHEST 1 VIEW [facility] Department of Radiology [address] [place] [phone] Patient Name: THIAGO SABILLON DOB: 1950 Sex: F Age: Race: White Pt. Location: [place] [address] Patient Status: I Ordered Date: 03/24/2021 6:30:00 [...] appropriate Electronically signed: Zina Brenner. Transcribed by: [email or web address], User Resident: Electronically Signed by: ZINA BRENNER @ 03/25/2021 07:16 AMNormalThe [facility] HospitalComment on above:Order Comment: Evaluate for PneumothoraxPORTABLE CHEST 1 [facility]UnOhio [facility] of [facility] [address] [place] [id number] Patient Name: THIAGO SABILLON : 1950 Sex: F Age: Race: White Pt. Location: [place] [address] Patient Status: I Ordered Date: 03/24/2021 5:00:00 [...] atelectasis. Electronically signed: Roque May. Transcribed by: [email or web address], User Resident: Electronically Signed by: ROQUE MAY @ 03/24/2021 08:02 [facility] SystemComment on above:Order Comment: The Aptima SARS-CoV-2 assay is a nucleic acid amplification test intended for the qualitative detection of RNA from SARS-CoV-2 isolated and purified from nasopharyngeal (AML ANALYST),oropharyngeal (OP), nasal swab, sputum, and bronchoalveolar lavage (BAL) specimens from patients with signs and symptoms of infection who are suspected of COVID-19. Results are for the identification of SARS-CoV-2 RNA. The SARS-CoV-2 RNA is generally detectable during the acute phase of infection. The Aptima SARS-CoV-2 Assay on the Tuxebo and Tuxebo Fusion system is intended for use by laboratory personnel specifically instructed and trained in the operation of the Lafitte and [employer]itte Fusion system. The Aptima SARS-CoV-2 assay is [...] with clinical observations, patient history, and epidemiological information.APTTon [id number] Coag (Bld) [Time]33.6 s Jcfmkh46.0-35.0The [facility] HospitalComment on above:Order Comment: post op day 1No: Do not add to previous drawResult Comment: ALL RESULTS MUST BE INTERPRETED WITH RESPECT TO BLOOD DRAWING ARTIFACT OR DILUTION ERROR OF ANTICOAGULANT AT THE TIME OF SAMPLING. THE APTT SHOULD NOT BE USED TO MONITOR UNFRACTIONATED HEPARIN THERAPY, THIS LABORATORY NO LONGER HAS AN ESTABLISHED THERAPEUTIC RANGE BASED ON THE APTT. IT IS RECOMMENDED THAT THE UFH - HEPARIN ASSAY (ANTI-XA ACTIVITY) BE USED FOR THIS PURPOSE.Performed By: #### 96745 #### [facility] [address] [place] [address], USABASIC METABOLIC PANELon [id number] [Mass/Vol]8.3 mg/dLLow8.6-10.3The [facility] HospitalComment on above:Order Comment: post op day 1No: Do not add to previous drawPerformed By: #### 90963 #### [facility] [address] [place] [address], USAChloride [Moles/Vol]106 mmol/FAzcjlu87-506Ukd [facility] HospitalComment on above:Order Comment: post op day 1No: Do not add to previous drawPerformed By: #### 43058 #### [facility] [address] [place] [address], USACO2 [Moles/Vol]26 mmol/JNkvoln27-11Uys [facility] HospitalComment on above:Order Comment: post op day 1No: Do not add to previous drawPerformed By: #### 03793 #### [facility] [address] [place] [address], USACreatinine [Mass/Vol]0.45 mg/dLLow0.60-1.20The [facility] HospitalComment on above:Order Comment: post op day 1No: Do not add to previous drawPerformed By: #### 72149 #### [facility] [address] [place] [address], USAGFR/1.73 sq M.predicted among blacks MDRD (S/P/Bld) [Vol rate/Area]mL/min/{1.73_m2}Normal>60The [facility] Comment on above:Order Comment: post op day 1No: Do not add to previous draw Performed By: #### 93750 #### [facility] [address] [place] [address], USAGFR/1.73 sq M.predicted among non-blacks MDRD (S/P/Bld) [Vol rate/Area]mL/min/{1.73_m2}Normal>60The [facility] Comment on above:Order Comment: post op day 1No: Do not add to previous draw Performed By: #### 80183 #### [facility] [address] [place] [address], USAGlucose [Mass/Vol]122 mg/mTVszh31-288Xfj [facility] HospitalComment on above:Order Comment: post op day 1No: Do not add to previous drawPerformed By: #### [id number] #### [facility] [address] [place] [address], USAPotassium [Moles/Vol]4.2 mmol/LNormal3.5-5.1The [facility] HospitalComment on above:Order Comment: post op day 1No: Do not add to previous drawPerformed By: #### 87964 #### [facility] [address] [place] [address], USASodium [Moles/Vol]140 mmol/GEauqcs916-488Nag [facility] HospitalComment on above:Order Comment: post op day 1No: Do not add to previous drawPerformed By: #### 68308 #### [facility] [address] [place] [address], USAUrea nitrogen [Mass/Vol]25 mg/dLNormal7-25The [facility] HospitalComment on above:Order Comment: post op day 1No: Do not add to previous drawPerformed By: #### 29790 #### [facility] [address] [place] [address], USACBC COMPLETE BLOOD COUNTon [id number] distribution width (RBC) [Ratio]13.4 %Jvisnf96.5-15.0The [facility] HospitalComment on above:Order Comment: post op day 1No: Do not add to previous drawPerformed By: #### 54722 #### [facility] [address] [place] [address], USAHematocrit (Bld) [Volume fraction]31.2 %Low36.0-45.0The [facility] HospitalComment on above:Order Comment: post op day 1No: Do not add to previous drawPerformed By: #### 03460 #### [facility] [address] [place] [address], USAHemoglobin (Bld) [Mass/Vol]10.2 g/dLLow12.0-15.0The [facility] HospitalComment on above:Order Comment: post op day 1No: Do not add to previous drawPerformed By: #### 16935 #### [facility] [address] [place] [address], [facility]ITALMCH (RBC) [Entitic mass]31.2 oeSavadi09.0-33.0The [facility] HospitalComment on above:Order Comment: post op day 1No: Do not add to previous drawPerformed By: #### 65781 #### [facility] [address] [place] [address], USAMCHC (RBC) [Mass/Vol]32.7 g/nQDwbuqt63.0-35.0The [facility] HospitalComment on above:Order Comment: post op day 1No: Do not add to previous drawPerformed By: #### 72216 #### [facility] [address] [place] [address], USAMCV (RBC) [Entitic vol]95.4 dZMtlxjg98.0-98.0The [facility] HospitalComment on above:Order Comment: post op day 1No: Do not add to previous drawPerformed By: #### 52522 #### [facility] [address] [place] [address], USANucleated RBC/100 WBC (Bld) [Ratio]0 %Normal0-0The [facility] HospitalComment on above:Order Comment: post op day 1No: Do not add to previous drawPerformed By: #### [id number] #### [facility] [address] [place] [address], USAPLAT RDE775 10*3/cJNbvult503-946Jcj [facility] HospitalComment on above:Order Comment: post op day 1No: Do not add to previous drawPerformed By: #### [id number] #### [facility] [address] [place] [address], USARBC (Bld) [#/Vol]3.27 10*6/uLLow3.80-5.00The [facility] HospitalComment on above:Order Comment: post op day 1No: Do not add to previous drawPerformed By: #### [id number] #### [facility] [address] [place] [address], USAWBC (Bld) [#/Vol]13.20 10*3/uLHigh4.00-10.60The [facility] HospitalComment on above:Order Comment: post op day 1No: Do not add to previous drawPerformed By: #### [id number] #### [facility] [address] [place] [address], USALACTATE BLOODon [id number] [Moles/Vol]1.0 mmol/L Normal0.5-2.2The [facility]rin[facility] HospitalComment on above:Order Comment: post op day 1No: Do not add to previous drawPerformed By: #### [id number] #### [facility] [address] [place] [address], USAMAGNESIUM BLOODon [id number] [Mass/Vol]2.1 mg/dL Normal1.9-2.7The [facility]rin[facility] HospitalComment on above:Order Comment: post op day 1No: Do not add to previous drawPerformed By: #### [id number] #### [facility] [facility] [address] [place] [address], USAOperative Reporton [id number] ReportMR#: [id number] I [facility] Pt. Name: Thiago Sabillon Room #: JESSICA [id number] Discharge Date: Birthdate: 1950 OPERATIVE REPORT DATE OF SURGERY: 03/22/2021 SURGEON: Chele Sanchez MD PREOPERATIVE DIAGNOSES: Severe mitral regurgitation, flail mitral valve posterior leaflet. POSTOPERATIVE DIAGNOSES: Severe mitral regurgitation, flail mitral valve posterior leaflet. OPERATIONS: 1. Minimally invasive video-assisted mitral valve repair with triangular resection of posterior scallop P2, #28 Physio ring annuloplasty. 2. Independent interpretation of transesophageal echocardiogram. PILE DRIVING SUPERINTENDENT: Juaquin. ANESTHESIA: General with endotracheal intubation. ANESTHESIOLOGIST: [...] Sanchez MD Date Trans: 03/23/2021 12:26 A/nader DN_JN:[id number] Hospitals [facility] GLUCOSE LAB on 89-65-9290Mhxwcwb [Mass/Vol]125 mg/uLOxva90-965Sxh [facility] HospitalComment on above:Performed By: #### [id number] #### [facility] [address] [place] [address], USAGlucose [Mass/Vol]147 mg/lIGykz26-467Ydg [facility] HospitalComment on above:Performed By: #### [id number] #### [facility] [address] [place] [address], USAGlucose [Mass/Vol]128 mg/kLMvhc47-505Yye [facility] HospitalComment on above:Performed By: #### [id number] #### [facility] [address] [place] [address], USAGlucose [Mass/Vol]102 mg/xGIcdr35-429Ftq [facility] HospitalComment on above:Performed By: #### [id number] #### [facility] [address] [place] [address], USAGlucose [Mass/Vol]115 mg/jHQdtk08-438Wln [facility] HospitalComment on above:Performed By: #### 49090 #### [facility] [address] [place] [address], USAGlucose [Mass/Vol]91 mg/mDNjmqic13-321Lce [facility] HospitalComment on above:Performed By: #### 33273 #### [facility] [address] [place] [address], USAGlucose [Mass/Vol]113 mg/iEAgnp60-233Dfb [facility] HospitalComment on above:Performed By: #### 25166 #### [facility] [address] [place] [address], USAPORTABLE CHEST 1 VIEWon [id number] CHEST 1 VIEW [facility] Department of Radiology [address] [place] [address] Patient Name: THIAGO SABILLON : 1950 Sex: F Age: Race: White Pt. Location: [place] [address] Patient Status: I Ordered Date: 03/23/2021 7:00:00 [...] base. Electronically signed: Vernell Mcclure. Transcribed by: [email or web address], User Resident: Electronically Signed by: VERNELL MCCLURE @ 03/23/2021 08:22 AMNormalThe [facility] HospitalComment on above:Order Comment: The Aptima SARS-CoV-2 assay is a nucleic acid amplification test intended for the qualitative detection of RNA from SARS-CoV-2 isolated and purified from nasopharyngeal (AML ANALYST),oropharyngeal (OP), nasal swab, sputum, and bronchoalveolar lavage (BAL) specimens from patients with signs and symptoms of infection who are suspected of COVID-19. Results are for the identification of SARS-CoV-2 RNA. The SARS-CoV-2 RNA is generally detectable during the acute phase of infection. The Aptima SARS-CoV-2 Assay on the [employer] Fusion system is intended for use by laboratory personnel specifically instructed and trained in the operation of the [employer] Fusion system. The Aptima SARS-CoV-2 assay is [...] with clinical observations, patient history, and epidemiological information.PROTHROMBIN TIMEon [id number] Coag (PPP) [Relative time]1.19 {INR}High0.91-1.16The [facility] Comment on above:Order Comment: post op day 1No: Do not add to previous draw Result Comment: ACCCP RECOMMENDED INR FOR WARFARIN THERAPY ------- CONDITION INR PROPHYLAXIS OF VENOUS THROMBOSIS 2-3 (HIGH-RISK SURGERY) TREATMENT OF VENOUS THROMBOSIS 2-3 TREATMENT OF PULMONARY EMBOLISM 2-3 PREVENTION OF SYSTEMIC EMBOLISM: 2-3 ACUTE MYOCARDIAL INFARCTION TISSUE HEART VALVES VALVULAR HEART DISEASE ATRIAL FIBRILLATION RECURRENT SYSTEMIC EMBOLISM MECHANICAL HEART VALVE 2.5-3.5 FROM: ORAL ANTICOAGULANTS. MECHANISM OF ACTION, CLINICAL EFFECTIVENESS, AND OPTIMAL THERAPEUTIC RANGE. CHEST 1995;108:231S-246S.Performed By: #### [id number] #### [facility] [address] [place] [address], [facility]PITALPT Coag (PPP) [Time]15.2 sHigh12.3-14.8The [facility] HospitalComment on above:Order Comment: post op day 1No: Do not add to previous drawResult Comment: ALL RESULTS MUST BE INTERPRETED WITH RESPECT TO BLOOD DRAWING ARTIFACT OR DILUTION ERROR OF ANTICOAGULANT AT THE TIME OF SAMPLING.Performed By: #### [id number] #### [facility] [address] [facility]*MRSA/MSSA DNA NASALon 03-22-2021*MRSA/MSSA DNA NASAL Clinical Report: (D) Specimen: NASAL SWAB Collected: 03/22/2021 08:00 Status: Final Last Updated: 03/23/2021 17:18 MSSA DNA (Final) Negative MRSA DNA (Final) NegativeNormalThe [facility] HospitalComment on above:Performed By: #### [id number] #### [facility] [address] [place] [address], [facility] HOSPITALACTIVATED CLOTTING TIMEon [id number] CLOTTING TIME 110 vzlHbxsuf18-734Opt [facility] HospitalComment on above: Performed By: #### [id number] #### [facility] [address] [place] [address], [facility]OSPITALACTIVATED CLOTTING [id number] ubuWnjj85-102Lho [facility] HospitalComment on above:Performed By: #### [id number] #### [facility] [address] [place] [address], USAACTIVATED CLOTTING RSVG005 ruhLqrj94-395Zrw [facility] HospitalComment on above:Performed By: #### [id number] #### [facility] [address] [place] [address], USAACTIVATED CLOTTING [id number] wlaOmon52-062Afp [facility] HospitalComment on above:Performed By: #### [id number] #### [facility] [address] [place] [address], USAACTIVATED CLOTTING [id number] aljMpkqre52-705Hmg [facility] HospitalComment on above:Performed By: #### [id number] #### [facility] [address] [place] [address], [facility]OSPITALAPTKingman Regional [facility] [id number] Coag (Bld) [Time]29.5 sNormal 25.0-35.0The [facility] HospitalComment on above:Order Comment: evaluate AtelectasisResult Comment: ALL RESULTS MUST BE INTERPRETED WITH RESPECT TO BLOOD DRAWING ARTIFACT OR DILUTION ERROR OF ANTICOAGULANT AT THE TIME OF SAMPLING. THE APTT SHOULD NOT BE USED TO MONITOR UNFRACTIONATED HEPARIN THERAPY, THIS LABORATORY NO LONGER HAS AN ESTABLISHED THERAPEUTIC RANGE BASED ON THE APTT. IT IS RECOMMENDED THAT THE UFH - HEPARIN ASSAY (ANTI-XA ACTIVITY) BE USED FOR THIS PURPOSE.Performed By: #### [id number], [id number] ####[facility] [place] [address], [facility] aPTT Coag (Bld) [Time]32.2 sGmyive72.0-35.0The [facility] HospitalComup health system on above:Result Comment: ALL RESULTS MUST BE INTERPRETED WITH RESPECT TO BLOOD DRAWING ARTIFACT OR DILUTION ERROR OF ANTICOAGULANT AT THE TIME OF SAMPLING. THE APTT SHOULD NOT BE USED TO MONITOR UNFRACTIONATED HEPARIN THERAPY, THIS LABORATORY NO LONGER HAS AN ESTABLISHED THERAPEUTIC RANGE BASED ON THE APTT. IT IS RECOMMENDED THAT THE UFH - HEPARIN ASSAY (ANTI-XA ACTIVITY) BE USED FOR THIS PURPOSE.Performed By: #### [id number] #### [facility] [address] [place] [address], USABASIC METABOLIC PANELon 70-53-1459Xawhhax [Mass/Vol]8.2 mg/dLLow8.6-10.3The [facility] HospitalComment on above: Performed By: #### 22621, 41580 ####[facility] [place] [address], USAChloride [Moles/Vol]108 mmol/EPmsh95-092Agt [facility] HospitalComment on above:Performed By: #### 11092, 10139 ####[facility] [place] [address], USACO2 [Moles/Vol]26 mmol/MDtveza53-96Euj [facility] HospitalComment on above:Performed By: #### 17161, 26600 ####[facility] [place] [address], USACreatinine [Mass/Vol]0.45 mg/dLLow0.60-1.20The [facility] HospitalComment on above: Performed By: #### 22908, 64274 ####[facility] [place] [address], USAGFR/1.73 sq M.predicted among blacks MDRD (S/P/Bld) [Vol rate/Area]mL/min/{1.73_m2}Normal>60The [facility] HospitalComment on above:Performed By: #### 09444, 86909 ####[facility] [place] [address], USAGFR/1.73 sq M.predicted among non-blacks MDRD (S/P/Bld) [Vol rate/Area]mL/min/{1.73_m2} Normal>60The [facility] HospitalComment on above:Performed By: #### 50501, 32834 ####[facility] [place] [address], USAGlucose [Mass/Vol]135 mg/yCQjlp23-313Ixl [facility] HospitalComment on above:Performed By: #### 90276, 08253 ####[facility] [place] [address], [place] Potassium [Moles/Vol]3.8 mmol/LNormal3.5-5.1The [facility] HospitalComment on above:Performed By: #### 48510, 01447 ####[facility] [place] [address], USASodium [Moles/Vol]141 mmol/HBzzbzp824-006Xra [facility] HospitalComment on above: Performed By: #### 93994, 77778 ####[facility] [place] [address], USAUrea nitrogen [Mass/Vol]24 mg/dLNormal7-25The [facility] HospitalComment on above:Performed By: #### 26284, 61104 ####[facility] [place] [address], USACalcium [Mass/Vol]8.4 mg/dLLow8.6-10.3The [facility] HospitalComment on above:Performed By: #### 84061 #### [facility] [address] [place] [address], USAChloride [Moles/Vol]105 mmol/JEkjeez50-200Pow [facility] HospitalComment on above:Performed By: #### 93476 #### [facility] [address] [place] [address], USACO2 [Moles/Vol]28 mmol/QIdgvyj25-82Uof [facility] HospitalComment on above:Performed By: #### 99260 #### [facility] [address] [place] [address], USACreatinine [Mass/Vol]0.53 mg/dLLow0.60-1.20The [facility] HospitalComment on above:Performed By: #### 94992 #### [facility] [address] [place] [address], USAGFR/1.73 sq M.predicted among blacks MDRD (S/P/Bld) [Vol rate/Area]mL/min/{1.73_m2}Normal>60The [facility] Comment on above:Performed By: #### 10058 #### [facility] [address] [place] [address], USAGFR/1.73 sq M.predicted among non-blacks MDRD (S/P/Bld) [Vol rate/Area]mL/min/{1.73_m2}Normal>60The [facility] Comment on above:Performed By: #### 39115 #### [facility] [address] [place] [address], USAGlucose [Mass/Vol]151 mg/wKObjs22-687Cna [facility] HospitalComment on above:Performed By: #### 89338 #### [facility] [address] [place] [address], USAPotassium [Moles/Vol]3.9 mmol/LNormal3.5-5.1The [facility] HospitalComment on above:Performed By: #### 66780 #### [facility] [address] [place] [address], USASodium [Moles/Vol]140 mmol/TOwjuwr257-477Pas [facility] HospitalComment on above:Performed By: #### 19457 #### [facility] [address] [place] [address], USAUrea nitrogen [Mass/Vol]25 mg/dLNormal7-25The [facility] HospitalComment on above:Performed By: #### 64580 #### [facility] [address] [place] [address], USACARDIAC MAGNESIUM BLOODon 95-26-5901Mzpibsnno [Mass/Vol]2.5 mg/dLNormal1.9-2.7The [facility] HospitalComment on above: Performed By: #### 46861, 41420 ####[facility] [place] [address], USACBC COMPLETE BLOOD COUNTon 03-22-2021 Erythrocyte distribution width (RBC) [Ratio]13.0 %Xvzrfx24.5-15.0The [facility] HospitalComment on above:Order Comment: No: Do not add to previous drawPerformed By: #### 82034 #### [facility] [address] [place] [address], USAHematocrit (Bld) [Volume fraction]32.1 %Low36.0-45.0The [facility] HospitalComment on above:Order Comment: No: Do not add to previous drawPerformed By: #### 94921 #### [facility] [address] [place] [address], USAHemoglobin (Bld) [Mass/Vol]10.2 g/dLLow12.0-15.0The [facility] HospitalComment on above:Order Comment: No: Do not add to previous drawPerformed By: #### 48059 #### [facility] [address] [place] [address], USAMCH (RBC) [Entitic mass]30.4 eqJqabro14.0-33.0The [facility] HospitalComment on above:Order Comment: No: Do not add to previous drawPerformed By: #### 74702 #### [facility] [address] [place] [address], USAMCHC (RBC) [Mass/Vol]31.8 g/dLLow32.0-35.0The [facility] HospitalComment on above:Order Comment: No: Do not add to previous drawPerformed By: #### 32266 #### [facility] [address] [place] [address], USAMCV (RBC) [Entitic vol]95.8 dWIvuswx96.0-98.0The [facility] HospitalComment on above:Order Comment: No: Do not add to previous drawPerformed By: #### 05680 #### [facility] [address] [place] [address], USANucleated RBC/100 WBC (Bld) [Ratio]0 %Normal0-0The [facility] HospitalComment on above:Order Comment: No: Do not add to previous drawPerformed By: #### 84490 #### [facility] [address] [place] [address], USAPLAT GOK710 10*3/pQXrwnsh678-865Mav [facility] HospitalComment on above:Order Comment: No: Do not add to previous draw Performed By: #### 06015 #### [facility] [address] [place] [address], USARBC (Bld) [#/Vol]3.35 10*6/uLLow3.80-5.00The [facility] HospitalComment on above:Order Comment: No: Do not add to previous drawPerformed By: #### 57840 #### [facility] [address] [place] [address], USAWBC (Bld) [#/Vol]14.75 10*3/uLHigh4.00-10.60The [facility] HospitalComment on above:Order Comment: No: Do not add to previous drawPerformed By: #### 24128 #### [facility] [address] [place] [address], USACBC W/DIFFon 49-33-6712WBD IMM GRANS0.1 10*3/uLNormal 0.0-0.2The [facility] HospitalComment on above:Performed By: #### 50265 #### [facility] [address] [place] [address], USAABS VJCNOGLHDTP76.5 10*3/uLHigh1.6-7.6The [facility] HospitalComment on above:Performed By: #### 73712 #### [facility] [address] [place] [address], [facility] HOSPITALBasophils (Bld) [#/Vol]0.0 10*3/uLNormal0.0-0.2The [facility] HospitalComment on above:Performed By: #### 92885 #### [facility] [address] [place] [address], USABasophils/100 WBC (Bld)0.2 %Normal0.0-1.0The [facility] HospitalComment on above:Performed By: #### 87406 #### [facility] [address] [place] [address], USAEosinophils (Bld) [#/Vol]0.1 10*3/uLNormal0.0-0.5The [facility] HospitalComment on above:Performed By: #### 27362 #### [facility] [address] [place] [address], USAEosinophils/100 WBC (Bld)0.5 %Normal0.0-6.0The [facility] HospitalComment on above:Performed By: #### 75190 #### [facility] [address] [place] [address], USAErythrocyte distribution width (RBC) [Ratio]13.0 %Normal 11.5-15.0The [facility] HospitalComment on above:Performed By: #### 57637 #### [facility] [address] [place] [address], USAHematocrit (Bld) [Volume fraction]27.3 %Low36.0-45.0The [facility] HospitalComment on above:Performed By: #### 64241 #### [facility] [address] [address], USAHemoglobin (Bld) [Mass/Vol]9.1 g/dLLow12.0-15.0The [facility] HospitalComment on above:Performed By: #### 85751 #### [facility] [address] [place] [address], USAIMMATURE GRANS0.9 %Normal0.0-1.0The [facility] HospitalComment on above:Performed By: #### 26151 #### [facility] [address] [place] [address], USALymphocytes (Bld) [#/Vol]1.7 10*3/uLNormal1.2-4.0The [facility] HospitalComment on above:Performed By: #### 37233 #### [facility] [address] [place] [address], USALymphocytes/100 WBC (Bld)13.2 %Low20.0-45.0The [facility] HospitalComment on above:Performed By: #### 16926 #### [facility] [address] [place] [address], USAMCH (RBC) [Entitic mass]31.0 szVhlndq80.0-33.0The [facility] HospitalComment on above:Performed By: #### 65594 #### [facility] [address] [place] [address], USAMCHC (RBC) [Mass/Vol]33.3 g/nISaqmql03.0-35.0The [facility] HospitalComment on above:Performed By: #### 59731 #### [facility] [address] [place] [address], USAMCV (RBC) [Entitic vol]92.9 wKXopjzk85.0-98.0The [facility] HospitalComment on above:Performed By: #### 84439 #### [facility] [address] [place] [address], USAMonocytes (Bld) [#/Vol]0.7 10*3/uLNormal0.1-1.0The [facility] HospitalComment on above:Performed By: #### 17244 #### [facility] [address] [place] [address], USAMONOS5.4 %Normal5.0-12.0The [facility] HospitalComment on above:Performed By: #### 44406 #### [facility] [address] [place] [address], USANeutrophils/100 WBC (Bld)79.8 %High40.0-72.0The [facility] HospitalComment on above:Performed By: #### 47209 #### [facility] [address] [place] [address], USANucleated RBC/100 WBC (Bld) [Ratio]0 %Normal0-0The [facility] HospitalComment on above:Performed By: #### 23426 #### [facility] [address] [place] [address], USAPLAT HGL690 10*3/jSTch344-836Jzs [facility] HospitalComment on above:Performed By: #### 48568 #### [facility] [address] [place] [address], USARBC (Bld) [#/Vol]2.94 10*6/uLLow3.80-5.00The [facility] HospitalComment on above:Performed By: #### 74778 #### [facility] [address] [place] [address], USAWBC (Bld) [#/Vol]13.20 10*3/uLHigh4.00-10.60The [facility] HospitalComment on above:Performed By: #### 79968 #### [facility] [address] [place] [address], USAFIBRINOGENon 33-30-6263WTESOJSPOT957 mg/aLMzlyrn948-094Toj [facility] HospitalComment on above:Performed By: #### 38345 #### [facility] [address] [place] [address], USALACTATE BLOODon 70-67-9711Omnzlxb [Moles/Vol]0.6 mmol/L Normal0.5-2.2The [facility] HospitalComment on above:Order Comment: No: Do not add to previous drawPerformed By: #### 75398 #### [facility] [address] [place] [address], USALactate [Moles/Vol]0.9 mmol/LNormal0.5-2.2The [facility] HospitalComment on above:Performed By: #### 56755 ####[facility] [place] [address], USAMAGNESIUM BLOOD on 20-38-2731Sqoqugzkd [Mass/Vol]3.7 mg/dLHigh1.9-2.7The [facility] HospitalComment on above:Performed By: #### 33681 #### [facility] [address] [place] [address], USAPERFUSION BLOOD PANELon 39-28-7556SFJP EXCESS2.0 mmol/L Normal-2.0-3.0The [facility] HospitalComment on above:Performed By: #### 26651 #### [facility] [address] [place] [address], NATEGlucose [Mass/Vol]158 mg/wKYpwg70-699Uea [facility] HospitalComment on above:Performed By: #### 48544 #### [facility] [address] [place] [address], [facility] HOSPITALHematocrit (Bld) [Volume fraction]25 %Rte28-40Ppm [facility] HospitalComment on above:Performed By: #### 57093 #### [facility] [address] [place] [address], [facility] HOSPITALHemoglobin (Bld) [Mass/Vol]8.5 g/dLLow12.0-17.0The [facility] HospitalComment on above:Performed By: #### 64759 #### [facility] [address] [place] [address], USAIONIZED CALCIUM1.30 mmol/LNormal1.12-1.32The [facility] HospitalComment on above:Performed By: #### 08887 #### [facility] [address] [place] [address], USAOxygen (Bld) [Partial pressure]173.0 mm[Hg]High80.0-105.0 The [facility] HospitalComment on above:Performed By: #### 58537 #### [facility] [address] [place] [address], DQTYSP838.5 foBlLwnfrn59.0-45.0The [facility] HospitalComment on above:Performed By: #### 83631 #### [facility] [address] [place] [address], USApH (Bld)7.44 [pH]Normal7.35-7.45The [facility] HospitalComment on above:Performed By: #### 52112 #### [facility] [address] [place] [address], USAPotassium [Moles/Vol]4.0 mmol/LNormal3.5-4.9The [facility] HospitalComment on above:Performed By: #### 57326 #### [facility] [address] [place] [address], USASodium [Moles/Vol]138 mmol/XAgxemp836-563Xlx [facility] HospitalComment on above:Performed By: #### 94507 #### [facility] [address] [place] [address], USABASE EXCESS2.0 mmol/LNormal-2.0-3.0The [facility] HospitalComment on above:Performed By: #### [id number] #### [facility] [address] [place] [address], USAGlucose [Mass/Vol]159 mg/vMSikb75-396Tjg [facility] HospitalComment on above:Performed By: #### [id number] #### [facility] [address] [place] [address], USAHematocrit (Bld) [Volume fraction]21 %Lgs65-62Ojm [facility] HospitalComment on above:Performed By: #### [id number] #### [facility] [address] [place] [address], USAHemoglobin (Bld) [Mass/Vol]7.1 g/dLLow12.0-17.0The [facility] HospitalComment on above:Performed By: #### [id number] #### [facility] [address] [place] [address], USAIONIZED CALCIUM1.29 mmol/LNormal1.12-1.32The [facility] HospitalComment on above:Performed By: #### [id number] #### [facility] [address] [place] [address], USAOxygen (Bld) [Partial pressure]175.0 mm[Hg]High80.0-105.0 The [facility] HospitalComment on above:Performed By: #### [id number] #### [facility] [address] [place] [address], NRQNFZ343.9 hrHaYbtuks58.0-45.0The [facility] HospitalComment on above:Performed By: #### [id number] #### [facility] [address] [place] [address], USApH (Bld)7.44 [pH]Normal7.35-7.45The [facility] HospitalComment on above:Performed By: #### [id number] #### [facility] [address] [place] [address], USAPotassium [Moles/Vol]4.0 mmol/LNormal3.5-4.9The [facility] HospitalComment on above:Performed By: #### [id number] #### [facility] [address] [place] [address], USASodium [Moles/Vol]138 mmol/XCpqayx912-372Zun [facility] HospitalComment on above:Performed By: #### [id number] #### [facility] [address] [place] [address], USABASE EXCESS4.0 mmol/LHigh-2.0-3.0The [facility] HospitalComment on above:Performed By: #### [id number] #### [facility] [address] [place] [address], USAGlucose [Mass/Vol]160 mg/mTNouu14-468Hyq [facility] HospitalComment on above:Performed By: #### [id number] #### [facility] [facility] [address] [place] [address], USAHematocrit (Bld) [Volume fraction]26 %Inu77-84Rxb [facility] HospitalComment on above:Performed By: #### [id number] #### [facility] [address] [place] [address], NATEHemoglobin (Bld) [Mass/Vol]8.8 g/dLLow12.0-17.0The [facility]riners HospitalComment on above:Performed By: #### [id number] #### [facility] [address] [place] [address], USAIONIZED CALCIUM1.00 mmol/LLow1.12-1.32The [facility]riners HospitalComment on above:Performed By: #### [id number] #### [facility] [address] [place] [address], [facility] HOSPITALOxygen (Bld) [Partial pressure]411.0 mm[Hg]High80.0-105.0 The [facility]riners HospitalComment on above:Performed By: #### [id number] #### [facility] [address] [place] [address], VIFWQQ147.4 jtUtDehb00.0-45.0The [facility]ers HospitalComment on above:Performed By: #### [id number] #### [facility] [address] [place] [address], USApH (Bld)7.36 [pH]Normal7.35-7.45The [facility]riners HospitalComment on above:Performed By: #### [id number] #### [facility] [address] [place] [address], USAPotassium [Moles/Vol]4.3 mmol/LNormal3.5-4.9The [facility]ers HospitalComment on above:Performed By: #### 39462 #### [facility] [address] [place] [address], USASodium [Moles/Vol]137 mmol/XZsv861-997Qjd [facility] HospitalComment on above:Performed By: #### 37970 #### [facility] [address] [place] [address], USABASE EXCESS1.0 mmol/LNormal-2.0-3.0The [facility]ers HospitalComment on above:Performed By: #### [id number] #### [facility] [address] [place] [address], USAGlucose [Mass/Vol]121 mg/uSRhnd07-578Dpw [facility] HospitalComment on above:Performed By: #### 07335 #### [facility] [address] [place] [address], USAHematocrit (Bld) [Volume fraction]22 %Cdy76-86Cpr [facility] HospitalComment on above:Performed By: #### 60356 #### [facility] [address] [place] [address], USAHemoglobin (Bld) [Mass/Vol]7.5 g/dLLow12.0-17.0The [facility]ers HospitalComment on above:Performed By: #### 97428 #### [facility] [address] [place] [address], USAIONIZED CALCIUM0.98 mmol/LLow1.12-1.32The [facility]ers HospitalComment on above:Performed By: #### [id number] #### [facility] [address] [place] [address], USAOxygen (Bld) [Partial pressure]40.0 mm[Hg]NormalThe [facility]ers HospitalComment on above:Performed By: #### 89374 #### [facility] [address] [place] [address], RQOOUT290.9 ugTkBubvec63.0-51.0The [facility] HospitalComment on above:Performed By: #### 22492 #### [facility] [address] [place] [address], USApH (Bld)7.38 [pH]Normal7.31-7.41The [facility]ers HospitalComment on above:Performed By: #### [id number] #### [facility] [address] [place] [address], [facility] HOSPITALPotassium [Moles/Vol]4.6 mmol/LNormal3.5-4.9The [facility]ers HospitalComment on above:Performed By: #### 09294 #### [facility] [address] [place] [address], USASodium [Moles/Vol]137 mmol/HBis259-090Qhb [facility] HospitalComment on above:Performed By: #### 44706 #### [facility] [address] [place] [address], USABASE EXCESS4.0 mmol/LHigh-2.0-3.0The [facility]ers HospitalComment on above:Performed By: #### [id number] #### [facility] [address] [place] [address], [facility] HOSPITALGlucose [Mass/Vol]107 mg/wXBebz13-090Xim [facility] HospitalComment on above:Performed By: #### 80046 #### [facility] [address] [place] [place] [address], USAHematocrit (Bld) [Volume fraction]24 %Gja41-46Qwz [facility] HospitalComment on above:Performed By: #### [id number] #### [facility] [address] [place] [place] [address], USAHemoglobin (Bld) [Mass/Vol]8.2 g/dLLow12.0-17.0The [facility] HospitalComment on above:Performed By: #### [id number] #### [facility] [address] [place] [place] [address], USAIONIZED CALCIUM0.98 mmol/LLow1.12-1.32The [facility]ers HospitalComment on above:Performed By: #### 78468 #### [facility] [address] [address], USAOxygen (Bld) [Partial pressure]424.0 mm[Hg]High80.0-105.0 The [facility]riners HospitalComment on above:Performed By: #### 12420 #### [facility] [address] [address], QUNJBQ228.6 toZqMiby27.0-45.0The [facility] HospitalComment on above:Performed By: #### 60952 #### [facility] [address] [address], USApH (Bld)7.40 [pH]Normal7.35-7.45The [facility]ers HospitalComment on above:Performed By: #### 83481 #### [facility] [address] [place] [address], USAPotassium [Moles/Vol]3.6 mmol/LNormal3.5-4.9The [facility] HospitalComment on above:Performed By: #### 60086 #### [facility] [address] [place] [address], USASodium [Moles/Vol]138 mmol/ARibbhr304-653Tza [facility] HospitalComment on above:Performed By: #### 93956 #### [facility] [address] [place] [address], USABASE EXCESS3.0 mmol/LNormal-2.0-3.0The [facility] HospitalComment on above:Performed By: #### 74857 #### [facility] [address] [place] [address], USAGlucose [Mass/Vol]116 mg/fJGakb97-371Rbq [facility] HospitalComment on above:Performed By: #### 78872 #### [facility] [address] [place] [address], USAHematocrit (Bld) [Volume fraction]31 %Odf81-20Sxs [facility] HospitalComment on above:Performed By: #### 02863 #### [facility] [address] [place] [address], USAHemoglobin (Bld) [Mass/Vol]10.5 g/dLLow12.0-17.0The [facility] HospitalComment on above:Performed By: #### 35815 #### [facility] [address] [place] [address], USAIONIZED CALCIUM1.14 mmol/LNormal1.12-1.32The [facility] HospitalComment on above:Performed By: #### 11528 #### [facility] [address] [place] [address], USAOxygen (Bld) [Partial pressure]296.0 mm[Hg]High80.0-105.0 The [facility]ers HospitalComment on above:Performed By: #### 86838 #### [facility] [address] [place] [address], ENUWUF228.1 xdAsGferke45.0-45.0The [facility] HospitalComment on above:Performed By: #### 88154 #### [facility] [address] [place] [address], USApH (Bld)7.45 [pH]Normal7.35-7.45The [facility] HospitalComment on above:Performed By: #### 49321 #### [facility] [address] [place] [address], USAPotassium [Moles/Vol]3.5 mmol/LNormal3.5-4.9The [facility] HospitalComment on above:Performed By: #### 74883 #### [facility] [address] [place] [address], USASodium [Moles/Vol]139 mmol/GXzclmt530-396Fxp [facility] HospitalComment on above:Performed By: #### 76839 #### [facility] [address] [place] [address], USABASE EXCESS3.0 mmol/LNormal-2.0-3.0The [facility] HospitalComment on above:Performed By: #### 61930 #### [facility] [address] [place] [address], USAGlucose [Mass/Vol]107 mg/lRUenk79-503Wwb [facility] HospitalComment on above:Performed By: #### 13712 #### [facility] [address] [place] [address], USAHematocrit (Bld) [Volume fraction]33 %Rcu52-75Oao [facility] HospitalComment on above:Performed By: #### 05742 #### [facility] [address] [place] [address], USAHemoglobin (Bld) [Mass/Vol]11.2 g/dLLow12.0-17.0The [facility] HospitalComment on above:Performed By: #### 66235 #### [facility] [address] [place] [address], USAIONIZED CALCIUM1.16 mmol/LNormal1.12-1.32The [facility] HospitalComment on above:Performed By: #### 75843 #### [facility] [address] [place] [address], USAOxygen (Bld) [Partial pressure]234.0 mm[Hg]High80.0-105.0 The [facility] HospitalComment on above:Performed By: #### 04342 #### [facility] [address] [place] [address], GQRCRP041.9 kjYrOvswxa17.0-45.0The [facility] HospitalComment on above:Performed By: #### 58102 #### [facility] [address] [place] [address], USApH (Bld)7.42 [pH]Normal7.35-7.45The [facility] HospitalComment on above:Performed By: #### 33147 #### [facility] [address] [place] [address], USAPotassium [Moles/Vol]3.8 mmol/LNormal3.5-4.9The [facility] HospitalComment on above:Performed By: #### 79639 #### [facility] [address] [place] [address], USASodium [Moles/Vol]138 mmol/TFwyxmc308-230Cul [facility] HospitalComment on above:Performed By: #### 00514 #### [facility] [address] [place] [address], [facility] HOSPITALPOC GLUCOSE LABon 62-63-8722Esuuckx [Mass/Vol]117 mg/dLHigh 70-100The [facility] HospitalComment on above:Performed By: #### 96729 #### [facility] [address] [place] [address], USAGlucose [Mass/Vol]110 mg/iBXmkw63-124Cte [facility] HospitalComment on above:Performed By: #### 02129 #### [facility] [address] [place] [address], USAGlucose [Mass/Vol]143 mg/yGAbip53-994Pmi [facility] HospitalComment on above:Performed By: #### 36268 #### [facility] [address] [place] [address], USAGlucose [Mass/Vol]169 mg/eBZahb85-360Fdk [facility] HospitalComment on above:Performed By: #### 63504 #### [facility] [address] [place] [address], USAGlucose [Mass/Vol]88 mg/bKHetssf76-963Hoz [facility] HospitalComment on above:Performed By: #### 80087 #### [address] [place] [address], USAPORTABLE CHEST 1 VIEWon 28-42-4961CIGEXPPC CHEST 1 VIEW [facility] Department of Radiology [address] [place] [address] [place] [address] Patient Name: THIAGO SABILLON : 1950 Sex: F Age: Race: White Pt. Location: [place] [address] Patient Status: I Ordered Date: 03/22/2021 12:30:00 [...] appropriate Electronically signed: Zina Brenner. Transcribed by: [id number], User Resident: Electronically Signed by: ZINA BRENNER @ 03/22/2021 01:42 PMNormalThe [facility]riners HospitalComment on above:Order Comment: Check Chest Tube Position, ON ARRIVAL TO CVUPROTHROMBIN TIMEon 55-13-9679UZE Coag (PPP) [Relative time]1.22 {INR}High0.91-1.16The [facility] Comment on above:Order Comment: No: Do not add to previous drawResult Comment: ACCCP RECOMMENDED INR FOR WARFARIN THERAPY ------- CONDITION INR PROPHYLAXIS OF VENOUS THROMBOSIS 2-3 (HIGH-RISK SURGERY) TREATMENT OF VENOUS THROMBOSIS 2-3 TREATMENT OF PULMONARY EMBOLISM 2-3 PREVENTION OF SYSTEMIC EMBOLISM: 2-3 ACUTE MYOCARDIAL INFARCTION TISSUE HEART VALVES VALVULAR HEART DISEASE ATRIAL FIBRILLATION RECURRENT SYSTEMIC EMBOLISM MECHANICAL HEART VALVE 2.5-3.5 FROM: ORAL ANTICOAGULANTS. MECHANISM OF ACTION, CLINICAL EFFECTIVENESS, AND OPTIMAL THERAPEUTIC RANGE. CHEST 1995;108:231S-246S.Performed By: #### [id number] #### [address] Coag (PPP) [Time]15.4 sHigh12.3-14.8The [facility]riners HospitalComment on above:Order Comment: No: Do not add to previous drawResult Comment: ALL RESULTS MUST BE INTERPRETED WITH RESPECT TO BLOOD DRAWING ARTIFACT OR DILUTION ERROR OF ANTICOAGULANT AT THE TIME OF SAMPLING.Performed By: #### [id number] #### [facility] [address] [place] [address], USAINR Coag (PPP) [Relative time]1.48 {INR}High0.91-1.16The [facility] HospitalComment on above:Result Comment: ACCCP RECOMMENDED INR FOR WARFARIN THERAPY ------- CONDITION INR PROPHYLAXIS OF VENOUS THROMBOSIS 2-3 (HIGH-RISK SURGERY) TREATMENT OF VENOUS THROMBOSIS 2-3 TREATMENT OF PULMONARY EMBOLISM 2-3 PREVENTION OF SYSTEMIC EMBOLISM: 2-3 ACUTE MYOCARDIAL INFARCTION TISSUE HEART VALVES VALVULAR HEART DISEASE ATRIAL FIBRILLATION RECURRENT SYSTEMIC EMBOLISM MECHANICAL HEART VALVE 2.5-3.5 FROM: ORAL ANTICOAGULANTS. MECHANISM OF ACTION, CLINICAL EFFECTIVENESS, AND OPTIMAL THERAPEUTIC RANGE. CHEST 1995;108:231S-246S.Performed By: #### [id number] #### [facility] [address] [place] [address], USAPT Coag (PPP) [Time]18.0 sHigh12.3-14.8The [facility] HospitalComment on above:Result Comment: ALL RESULTS MUST BE INTERPRETED WITH RESPECT TO BLOOD DRAWING ARTIFACT OR DILUTION ERROR OF ANTICOAGULANT AT THE TIME OF SAMPLING.Performed By: #### [id number] #### [facility] [address] [place] [address], [facility] HOSPITALPulmonary Functionon 41-39-3197Hqkrjvvab FunctionMR #: [id number] [facility] PT. Name: Thiago Sabillon Date: 03/20/2021 [...] Begum MD Date Trans: 03/22/2021 01:57 P/ DN_JN:[id number] cc: Balta Jane M.D. [address] [place], [place] [address]RB'S 2 UNITSon 11-91-7704GNLCWFIOMM INTERP 1CSt. [facility] Comment on above:Performed By: #### 24521 #### [facility] [address] [place] [address], CAR[facility] T[facility]LEY HOSPITALCROSSMATCH INTERP 2CSt. John of God HospitalComment on above:Performed By: #### [id number] #### [facility] [address] [place] [address], USAPRODUCT CODE [id number] Ferry HospitalComment on above:Performed By: #### 06215 #### [facility] [address] [place] [address], USAPRODUCT CODE [id number] Ferry HospitalComment on above:Performed By: #### 25597 #### [facility] [address] [place] [address], USAPRODUCT STATUS 1RProMedica Defiance Regional HospitalComment on above:Result Comment: Result changed by IF on 03/22/2021 09:49. The previous value was XM. Result changed by IF on 03/22/2021 12:46. The previous value was IS. Result changed by IF on 03/25/2021 06:46. The previous value was XM.Performed By: #### 28413 #### [facility] [address] [place] [address], USAPRODUCT STATUS 2RProMedica Defiance Regional HospitalComment on above:Result Comment: Result changed by IF on 03/22/2021 09:49. The previous value was XM. Result changed by IF on 03/22/2021 12:46. The previous value was IS. Result changed by IF on 03/25/2021 06:46. The previous value was XM.Performed By: #### 47195 #### [facility] [address] [place] [address], USAUNIT ABO 1AMartins Ferry Hospital Comment on above:Performed By: #### 99225 #### [facility] [address] [place] [address], USAUNIT ABO 2AMartins Ferry Hospital Comment on above:Performed By: #### 49024 #### [facility] [address] [place] [address], USAUNIT ID [id number] HospitalComment on above:Performed By: #### [id number] #### [facility] [address] [place] [address], [facility] HOSPITALUNIT ID [id number]'s Daughters Medical Center OhioComment on above:Performed By: #### [id number] #### [facility] [address] [place] [address], [facility] HOSPITALUNIT RH 1PositiveMartins Ferry HospitalComment on above:Performed By: #### 11308 #### [facility] [address] [place] [address], [facility] HOSPITALUNIT RH 2PosiKettering Health Main CampusComment on above:Performed By: #### [id number] #### [facility] [address] [facility]*MRSA/MSSA DNA NASALon 03-20-2021*MRSA/MSSA DNA NASAL Clinical Report: (D) Specimen: NASAL SWAB Collected: 03/20/2021 13:16 Status: Final Last Updated: 03/21/2021 15:36 MSSA DNA (Final) Negative MRSA DNA (Final) NegativeMartins Ferry HospitalComment on above:Performed By: #### [id number] #### [facility] [address]*SARS-CoV-2 COVID-19on [id number]-CoV-2 (COVID-19) RNA GÓMEZ+probe Ql (Unsp spec)Not detectedNormalNot DetectedThe [facility] HospitalComment on above:Order Comment: The Aptima SARS-CoV-2 assay is a nucleic acid amplification test intended for the qualitative detection of RNA from SARS-CoV-2 isolated and purified from nasopharyngeal (AML ANALYST),oropharyngeal (OP), nasal swab, sputum, and bronchoalveolar lavage (BAL) specimens from patients with signs and symptoms of infection who are suspected of COVID-19. Results are for the identification of SARS-CoV-2 RNA. The SARS-CoV-2 RNA is generally detectable during the acute phase of infection. The Aptima SARS-CoV-2 Assay on the [employer] system is intended for use by laboratory personnel specifically instructed and trained in the operation of the [employer] system. The Aptima SARS-CoV-2 assay is [...] with clinical observations, patient history, and epidemiological information.Performed By: #### [id number] #### [facility] [address] [place] [address], CAR[facility] TINGLEY HOSPITALAPTTon 17-92-3022iEJS Coag (Bld) [Time]34.1 sNormal 25.0-35.0The [facility] HospitalComment on above:Result Comment: ALL RESULTS MUST BE INTERPRETED WITH RESPECT TO BLOOD DRAWING ARTIFACT OR DILUTION ERROR OF ANTICOAGULANT AT THE TIME OF SAMPLING. THE APTT SHOULD NOT BE USED TO MONITOR UNFRACTIONATED HEPARIN THERAPY, THIS LABORATORY NO LONGER HAS AN ESTABLISHED THERAPEUTIC RANGE BASED ON THE APTT. IT IS RECOMMENDED THAT THE UFH - HEPARIN ASSAY (ANTI-XA ACTIVITY) BE USED FOR THIS PURPOSE.Performed By: #### [id number] #### [facility] [address] [place] [address], USAARTERIAL BLOOD GAS W/COOXon 22-94-2273PCMU EXCESS5 mmol/L High-2-3The [facility] HospitalComment on above:Performed By: #### 52426 #### [facility] [address] [place] [address], USACOHB0.8 %Normal0.0-1.5The [facility] HospitalComment on above:Performed By: #### [id number] #### [facility] [address] [place] [address], ZOOQII320 %NormalThe [facility] Comment on above:Performed By: #### 77829 #### [facility] [address] [place] [address], USAHCO3 (Bld) [Moles/Vol]28 mmol/BAzujiy41-85Pox [facility] HospitalComment on above:Performed By: #### 17267 #### [facility] [address] [place] [address], USAMETHB0.8 %Normal0.0-1.5The [facility] HospitalComment on above:Performed By: #### 14297 #### [facility] [address] [place] [address], USAOxygen (Bld) [Partial pressure]116 mm[Hg]Critically high 83-108The [facility] HospitalComment on above:Performed By: #### [id number] #### [facility] [address] [place] [address], USAOxygen saturation in Blood97.0 %Tpsiid48.0-97.0The [facility] HospitalComment on above:Performed By: #### 88357 #### [facility] [address] [place] [address], EELCLS817 kwCzNufcjq53-77Gwj [facility] HospitalComment on above:Performed By: #### 38715 #### [facility] [address] [place] [address], USApH (Bld)7.50 [pH]High7.35-7.45The [facility] HospitalComment on above:Performed By: #### 94106 #### [facility] [address] [place] [address], CFTGUM23.1 g/iRVoyhld10.0-16.3The [facility] HospitalComment on above:Performed By: #### [id number] #### [facility] [address] [place] [address], [facility]OSPITALCBC W/DIFFon 90-24-3364XBD IMM GRANS0.0 10*3/uLNormal 0.0-0.2The [facility] HospitalComment on above:Performed By: #### 79953 #### [facility] [address] [place] [address], USAABS NEUTROPHILS4.5 10*3/uLNormal1.6-7.6The [facility] HospitalComment on above:Performed By: #### 33759 #### [facility] [address] [place] [address], USABasophils (Bld) [#/Vol]0.0 10*3/uLNormal0.0-0.2The [facility] HospitalComment on above:Performed By: #### 73374 #### [facility] [address] [place] [address], USABasophils/100 WBC (Bld)0.4 %Normal0.0-1.0The [facility] HospitalComment on above:Performed By: #### [id number] #### [facility] [address] [place] [address], USAEosinophils (Bld) [#/Vol]0.1 10*3/uLNormal0.0-0.5The [facility] HospitalComment on above:Performed By: #### [id number] #### [facility] [address] [place] [address], USAEosinophils/100 WBC (Bld)1.2 %Normal0.0-6.0The [facility] HospitalComment on above:Performed By: #### 75118 #### [facility] [address] [place] [address], USAErythrocyte distribution width (RBC) [Ratio]13.1 %Normal 11.5-15.0The [facility] HospitalComment on above:Performed By: #### [id number] #### [facility] [address] [place] [address], USAHematocrit (Bld) [Volume fraction]42.7 %Bivqod74.0-45.0The [facility] HospitalComment on above:Performed By: #### [id number] #### [facility] [address] [place] [address], [facility] HOSPITALHemoglobin (Bld) [Mass/Vol]14.0 g/hIVzzrgi59.0-15.0The [facility]rin[facility] HospitalComment on above:Performed By: #### [id number] #### [facility] [address] [place] [address], USAIMMATURE GRANS0.1 %Normal0.0-1.0The [facility]riners HospitalComment on above:Performed By: #### [id number] #### [facility] [address] [place] [address], USALymphocytes (Bld) [#/Vol]1.7 10*3/uLNormal1.2-4.0The [facility] HospitalComment on above:Performed By: #### [id number] #### [facility] [address] [place] [address], USALymphocytes/100 WBC (Bld)24.1 %Aqdjdr05.0-45.0The [facility]ers HospitalComment on above:Performed By: #### [id number] #### [facility] [address] [place] [address], [facility] (RBC) [Entitic mass]30.7 tvElrgqd27.0-33.0The [facility]ers HospitalComment on above:Performed By: #### [id number] #### [facility] [address] [place] [address], [facility] (RBC) [Mass/Vol]32.8 g/rBQnuyst70.0-35.0The [facility] HospitalComment on above:Performed By: #### [id number] #### [facility] [address] [place] [address], [facility]OSPITALMCV (RBC) [Entitic vol]93.6 bPDfobyg99.0-98.0The [facility] HospitalComment on above:Performed By: #### [id number] #### [facility] [address] [place] [address], [facility] HOSPITALMonocytes (Bld) [#/Vol]0.7 10*3/uLNormal0.1-1.0The [facility]riners HospitalComment on above:Performed By: #### [id number] #### [facility] [address] [place] [address], [facility] HOSPITALMONOS9.8 %Normal5.0-12.0The [facility]riners HospitalComment on above:Performed By: #### [id number] #### [facility] [address] [place] [address], USANeutrophils/100 WBC (Bld)64.4 %Wtlgzd59.0-72.0The [facility]riners HospitalComment on above:Performed By: #### [id number] #### [facility] [address] [place] [address], USANucleated RBC/100 WBC (Bld) [Ratio]0 %Normal0-0The [facility]ers HospitalComment on above:Performed By: #### [id number] #### [facility] [address] [place] [address], USAPLAT [id number] 10*3/pZUniblw899-280Ldd [facility] HospitalComment on above:Performed By: #### [id number] #### [facility] [address] [place] [address], USARBC (Bld) [#/Vol]4.56 10*6/uLNormal3.80-5.00The [facility]riners HospitalComment on above:Performed By: #### [id number] #### [facility] [address] [place] [address], USAWBC (Bld) [#/Vol]6.93 10*3/uLNormal4.00-10.60The [facility]riners HospitalComment on above:Performed By: #### [id number] #### [facility] [address] [place] [address], USACHEST AND LATERALon 14-30-7401ZOJEO AND [facility] Department of Radiology [address] [place], [place] [address] [id number] Patient Name: THIAGO SABILLON : 1950 Sex: [...] above Electronically signed: Savannah Eubanks. Transcribed by: [id number], User Resident: Electronically Signed by: SAVANNAH EUBANKS @ 03/21/2021 10:05 AMNormalThe [facility] Shriners HospitalComment on above:Order Comment: evaluateCOMP METABOLIC PANELon 05-17-2664Jtnxoit [Mass/Vol]4.7 g/dLNormal3.5-5.7The [facility]riners HospitalComment on above:Performed By: #### [id number] #### [facility] [address] [place] [address], USAALKALINE EVTFVY96 IU/PWfulix34-769Mvm [facility] HospitalComment on above:Performed By: #### [id number] #### [facility] [address] [place] [address], USAALT [Catalytic activity/Vol]20 U/LNormal7-52The [facility]riners HospitalComment on above:Performed By: #### 53095 #### [facility] [address] [place] [address], USAAST [Catalytic activity/Vol]16 U/EBeiyjn12-62Iqh [facility] HospitalComment on above:Performed By: #### [id number] #### [facility] [address] [place] [address], USABilirubin [Mass/Vol]0.5 mg/dLNormal0.3-1.0The [facility]riners HospitalComment on above:Performed By: #### [id number] #### [facility] [address] [place] [address], USACalcium [Mass/Vol]9.7 mg/dLNormal8.6-10.3The [facility]riners HospitalComment on above:Performed By: #### 84288 #### [facility] [address] [place] [address], USAChloride [Moles/Vol]100 mmol/ROixuwq81-100Vyd [facility] HospitalComment on above:Performed By: #### 03875 #### [facility] [address] [place] [address], USACO2 [Moles/Vol]33 mmol/AOggy22-94Iud [facility] HospitalComment on above:Performed By: #### 64252 #### [facility] [address] [place] [address], USACreatinine [Mass/Vol]0.64 mg/dLNormal0.60-1.20The [facility] HospitalComment on above:Performed By: #### 85424 #### [facility] [address] [place] [address], USAGFR/1.73 sq M.predicted among blacks MDRD (S/P/Bld) [Vol rate/Area]mL/min/{1.73_m2}Normal>60The [facility] Comment on above:Performed By: #### 86066 #### [facility] [address] [place] [address], USAGFR/1.73 sq M.predicted among non-blacks MDRD (S/P/Bld) [Vol rate/Area]mL/min/{1.73_m2}Normal>60The [facility] Comment on above:Performed By: #### 62912 #### [facility] [address] [place] [address], USAGlucose [Mass/Vol]87 mg/jWRvlrid73-016Nit [facility] HospitalComment on above:Performed By: #### 52339 #### [facility] [address] [place] [address], USAPotassium [Moles/Vol]4.3 mmol/LNormal3.5-5.1The [facility]ers HospitalComment on above:Performed By: #### 37545 #### [facility] [address] [place] [address], USAProtein [Mass/Vol]7.8 g/dLNormal6.0-8.3The [facility] HospitalComment on above:Performed By: #### 82535 #### [facility] [address] [place] [address], USASodium [Moles/Vol]137 mmol/AJwdjrv851-975Rtd [facility] HospitalComment on above:Performed By: #### 35041 #### [facility] [address] [place] [address], USAUrea nitrogen [Mass/Vol]26 mg/dLHigh7-25The [facility]ers HospitalComment on above:Performed By: #### 16760 #### [facility] [address] [place] [address], USACT CHEST WO CONTRASTon 77-48-4608GR CHEST WO CONTRAST [facility] Department of Radiology [address] [place] [id number] Patient Name: THIAGO SABILLON : 1950 [...] examination. Electronically signed: Omkar Crowder. Transcribed by: [id number], User Resident: Electronically Signed by: OMKAR CROWDER @ 03/21/2021 01:39 PMNormalThe [facility]riners HospitalComment on above:Order Comment: for surgery on 03/22/2021 , Patient Age: 70 years oldHEMOGLOBIN A1Con 62-85-0246Kazhfcu [Moles/Vol]111 mmol/LNormalThe [facility]ers HospitalComment on above:Performed By: #### 82793 #### [facility] [address] [place] [address], GZEVxT7g (Bld) [Mass fraction]5.5 %Normal4.0-6.0The [facility]riners HospitalComment on above:Performed By: #### 36226 #### [facility] [address] [place] [address], USAPROTHROMBIN TIMEon 03-95-1016WGA Coag (PPP) [Relative time] 0.96 {INR}Normal0.91-1.16The [facility]riners HospitalComment on above:Result Comment: ACCCP RECOMMENDED INR FOR WARFARIN THERAPY ------- CONDITION INR PROPHYLAXIS OF VENOUS THROMBOSIS 2-3 (HIGH-RISK SURGERY) TREATMENT OF VENOUS THROMBOSIS 2-3 TREATMENT OF PULMONARY EMBOLISM 2-3 PREVENTION OF SYSTEMIC EMBOLISM: 2-3 ACUTE MYOCARDIAL INFARCTION TISSUE HEART VALVES VALVULAR HEART DISEASE ATRIAL FIBRILLATION RECURRENT SYSTEMIC EMBOLISM MECHANICAL HEART VALVE 2.5-3.5 FROM: ORAL ANTICOAGULANTS. MECHANISM OF ACTION, CLINICAL EFFECTIVENESS, AND OPTIMAL THERAPEUTIC RANGE. CHEST 1995;108:231S-246S.Performed By: #### 90419 #### [facility] [address] [place] [address], USAPT Coag (PPP) [Time]12.8 tEnafug93.3-14.8The [facility]ers HospitalComment on above:Result Comment: ALL RESULTS MUST BE INTERPRETED WITH RESPECT TO BLOOD DRAWING ARTIFACT OR DILUTION ERROR OF ANTICOAGULANT AT THE TIME OF SAMPLING.Performed By: #### [id number] #### [facility] [address] [address], USATYPE AND CROSSMATCHon 32-94-2805QEG INTERPRETATIONANormal The [facility]riners HospitalComment on above:Performed By: #### [id number] #### [facility] [address] [address], USARH INTERPRETATIONPositiveNormalThe [facility]riners HospitalComment on above:Performed By: #### 09437 #### [facility] [address] [place] [address], USAURINALYSIS REFLEXon 38-99-3394Lmohbksqrz (U)CLEARNormal CLEARThe [facility]ers HospitalComment on above:Performed By: #### 92456 #### [facility] [address] [address], USABilirubin Ql (U)NegativeNormalNEGATIVEThe [facility]ers HospitalComment on above:Performed By: #### 17964 #### [facility] [address] [address], USAColor (U)YELLOWNormalYELLOWThe [facility]ers HospitalComment on above:Performed By: #### 60198 #### [facility] [address] [place] [address], USAEPISNONE SEENNormalFEW,OCC,NONE SEENThe [facility]ers HospitalComment on above:Performed By: #### 24214 #### [facility] [address] [place] [address], USAGlucose Ql (U)NegativeNormalNEGATIVEThe [facility]ers HospitalComment on above:Performed By: #### 40310 #### [facility] [address] [place] [address], USAHemoglobin Ql (U)NegativeNormalNEGATIVEThe [facility]ers HospitalComment on above:Performed By: #### 10875 #### [facility] [address] [place] [address], USAKETONENegativeNormalNEGATIVEThe [facility]ers HospitalComment on above:Performed By: #### 77802 #### [facility] [address] [place] [address], USALEUK ESTERNegativeNormalNEGATIVEThe [facility]ers HospitalComment on above:Performed By: #### 93278 #### [facility] [address] [place] [address], USANitrite Ql (U)NegativeNormalNEGATIVEThe [facility]ers HospitalComment on above:Performed By: #### 53718 #### [facility] [address] [place] [address], USApH (U)7.0 [pH]Normal5.0-8.0The [facility]ers HospitalComment on above:Performed By: #### 15244 #### [facility] [address] [place] [address], USAProtein Ql (U)NegativeNormalNEGATIVEThe [facility]ers HospitalComment on above:Performed By: #### 30326 #### [facility] [address] [place] [address], USARBC0-2AbnormalNONE SEENThe [facility]ers HospitalComment on above:Performed By: #### 52537 #### [facility] [address] [place] [address], USASPEC GRAV1.456Rzmrme2.015-1.020The [facility]ers HospitalComment on above:Performed By: #### 23048 #### [facility] [address] [place] [address], USAWBC UA0-2AbnormalNONE SEENThe [facility]ers HospitalComment on above:Performed By: #### 65004 #### [facility] [address] [place] [address], USACardiovascular Lab Reporton 05-68-9256Jebathpsxadgql Lab ReportUnMercy Health St[facility] Patient Name: suzanne [facility] MR #: [id number] Physician: Balta Jane, Department of M.D. Medicine Service Date: 03/08/2021 Division of Birthdate: 1950 Cardiology Room #: Adult Cardiovascular Services [facility] [address] [place], [place] [address] Cardiovascular Laboratory Report FINAL IMPRESSIONS: 1. Wpwg-sn-uncjwzkq coronary artery disease. 2. Severe mitral regurgitation by transesophageal echocardiography. 3. Normal right-sided heart pressures and normal pulmonary capillary wedge pressure. 4. Normal cardiac output/cardiac index. 5. Jdaf-ts-ozseybxi systemic hypertension. 6. Peripheral arterial disease evidenced [...] femoral vein and artery was obtained. A 6-Nepali x 11 cm sheath was placed in [...] was elected to conclude the procedure. A 6-Nepali MynxGrip closure device was deployed; however, this [...] Jane M.D. Date Trans: 03/08/2021 02:45 P/mmo [id number] cc: Balta Jane M.D. [address] [place] [address] Vital Signs Date TimeVital SignValuePerforming CqhuhpxzzDkelndgz35-40-4708 13:24-0500 Diastolic blood bzyxlxpy74 mm[Hg]Yandy Hector MD Work Phone: 2(351)196-[address] [place], [place] [address]210111-10-2025 13:24-0500 Systolic blood ulhclyme358 mm[Hg]Yandy Hector MD Work Phone: 5(569)196-[address] [place], [place] 7210111-10-2025 13:18-0500 Body ennivy007.6 cmYandy Hector MD Work Phone: 8(466)869-[address] [place], [place] 7210111-10-2025 13:18-0500 Body mass index (BMI) [Ratio]19.05 kg/s1JfykjvYandy Hector MD Work Phone: 0(598)332-[address] [place], [place] 7210111-10-2025 13:18-0500 Body fpifwe82.35 kgYandy Hector MD Work Phone: 8(368)383-[address] [place], [place] [address]210111-10-2025 13:18-0500 Heart rate56 /minYandy Hector MD Work Phone: 0(419)508-[address] [place], [place] 7210109-26-2025 10:53-0400 Diastolic blood tpbdutpz34 mm[Hg]Kallie Chase MD Work Phone: [facility]09-26-2025 10:53-0400 Systolic blood ywebegsm711 mm[Hg]Kallie Chase MD Work Phone: 1(904)[address]09-18-2025 10:18-0400 Body bwxlka509.56 cmKallie Chase MD Work Phone: 1(468)[address] [place], [place] 4963409-18-2025 10:18-0400 Body mass index (BMI) [Ratio]18.8 kg/l4PnkutlKallie Chase MD Work Phone: 1(024)[address] [place], [place] 4963409-18-2025 10:18-0400 Body xacvlw22.89 kgKallie Chase MD Work Phone: 1(779)[address] [place], [place] 4963409-18-2025 10:18-0400 Diastolic blood aqsdvsty68 mm[Hg]Kallie Chase MD Work Phone: 1(053)[address] [place], [place] 4963409-18-2025 10:18-0400 Heart rate41 /Kathia Chase MD Work Phone: 1(632)[address] [place], [place] 4963409-18-2025 10:18-0400 Systolic blood xxhdepzd484 mm[Hg]Kallie Chase MD Work Phone: 1(704)[address] [place], [place] 4963406-23-2025 08:51-0400 Body onkopj824.56 cmKallie Chase MD Work Phone: 1(326)[address] [place], [place] 4963406-23-2025 08:51-0400 Body mass index (BMI) [Ratio]18.9 kg/x6SdnzbaKallie Chase MD Work Phone: 1(453)[address] [place], [place] 4963406-23-2025 08:51-0400 Body ucbqxe91.06 kgKallie Chase MD Work Phone: 1(070)[address] [place], [place] 4963406-23-2025 08:51-0400 Diastolic blood juuiyaly84 mm[Hg]Kallie Chase MD Work Phone: 1(165)[address] [place], [place] 4963406-23-2025 08:51-0400 Heart rate52 /Kathia Chase MD Work Phone: 1(235)[address] [place], [place] 4963406-23-2025 08:51-0400 Systolic blood axbhqvhs64 mm[Hg]Kallie Chase MD Work Phone: [facility]02-24-2025 08:52-0500 Body .6 cmFechuy Jacobsen AML ANALYST Work Phone: [facility] CenterJxrbtsnmzh96-61-2734 08:52-0500Body mass index (BMI) [Ratio]19.57 kg/z3TduiqemBraxton Canasgel AML ANALYST Work Phone: [facility] CenterJugvcenqfe67-04-0617 08:52-0500Body rersmr71.71 kgFechuy Jacobsen AML ANALYST Work Phone: [facility] CenterYhjiwrcyfm72-19-7544 08:52-0500Diastolic blood ulyiwsxn70 mm[Hg]Braxton Jacobsen AML ANALYST Work Phone: [facility] CenterLasiztqqrq47-21-2883 08:52-0500Systolic blood oopjyugj035 mm[Hg]Braxton Singletaryperimichael AML ANALYST Work Phone: [facility] CenterWbnqmfmxfu00-93-3511 10:05-0500Body .9 cmWijaun Mcclendon DO Work Phone: [facility] CenterFuwmemsini76-39-8637 10:05-0500Body mass index (BMI) [Ratio]19.03 kg/r1YmmbhagThaddeus Mcclendon DO Work Phone: [facility] CenterJmzaeubuxs82-06-1213 10:05-0500Body edtamp74.9 kg Thaddeus Danelle DO Work Phone: [facility] CenterHccbdpxwmw50-02-1197 10:05-0500Diastolic blood coerogrr79 mm[Hg]Thaddeus Mcclendon DO Work Phone: [facility] CenterWokmtwgqew74-81-3161 10:05-0500Systolic blood hzemswau855 mm[Hg]Thaddeus Mcclendon DO Work Phone: [facility] CenterCyzvmlgmxr17-82-1974 13:28-0500Diastolic blood itjpycyd52 mm[Hg]Yandy Hector MD Work Phone: [facility]11-04-2024 13:28-0500 Heart rate66 /minYandy Hector MD Work Phone: [facility]11-04-2024 13:28-0500 Systolic blood mm[Hg]Yandy Hector MD Work Phone: 1(069)454-99[facility]11-04-2024 13:11-0500 Body qedhne006.8 cmYandy Hector MD Work Phone: 1(876)206-[address] [place], [place] 7210111-04-2024 13:11-0500 Body mass index (BMI) [Ratio]19.2 kg/r4SfurjkYandy Hector MD Work Phone: 1(035)620-[address] [place], [place] 7210111-04-2024 13:11-0500 Body dqpfgo60.53 kgYandy Hector MD Work Phone: 1(798)970-[address] [place], [place] 7210110-17-2024 11:48-0400 Body dnmnit393.56 cmMD Kallie Chase Work Phone: 1(865)[address]10-17-2024 11:48-0400 Body mass index (BMI) [Ratio]19.5 kg/m2MD Kallie Chase Work Phone: 1(901)[address] [place], [place] 4963410-17-2024 11:48-0400 Body awsngq15.82 kgMD Kallie Chase Work Phone: 1(303)[address] [place], [place] 4963410-17-2024 11:48-0400 Diastolic blood mm[Hg]MD Kallie Chase Work Phone: 1(091)[address]10-17-2024 11:48-0400 Heart rate52 /minMD Kallie Chase Work Phone: 1(438)[address]172 [address]10-17-2024 11:48-0400 Systolic blood xwwtrven690 mm[Hg]MD Kallie Chase Work Phone: 1(700)[address]10-02-2024 11:11-0400 Body lrsrgswmrre17.7 [degF]MD Kallie Chase Work Phone: 1(690)23972 [address]10-02-2024 11:11-0400 Diastolic blood krawcmff30 mm[Hg]MD Kallie Chase Work Phone: 1(676)845-[address] [place], [place] 1361610-02-2024 11:11-0400 Heart rate67 /minMD Kallie Chase Work Phone: 1(637)[address]10-02-2024 11:11-0400 Respiratory rate16 /minMD Kallie Chase Work Phone: 1(525)[address] [place], [place] 4963410-02-2024 11:11-0400 SaO2% (BldA) [Mass fraction]99 %MD Kallie Chase Work Phone: 1(354)[address]10-02-2024 11:11-0400 Systolic blood mm[Hg]MD Kallie Chase Work Phone: 1(294)[address]10-02-2024 02:27-0400 Body xyutdr241.56 cmMD Kallie Chase Work Phone: 1(151)[address] [place], [place] 4963410-02-2024 02:27-0400 Body mhoigo64.9 kgMD Kallie Chase Work Phone: 1(063)[address] [place], [place] 4963410-02-2024 02:04-0400 Body ilhkkfjdbps00.2 [degF]MD Kallie Chase Work Phone: 1(487)[address]10-02-2024 02:04-0400 Diastolic blood lrwifhqg10 mm[Hg]MD Kallie Chase Work Phone: 1(409)[address]10-02-2024 02:04-0400 Heart rate61 /minMD Kallie Chase Work Phone: 1(620)045-[address] [place], [place] 1361610-02-2024 02:04-0400 Respiratory rate19 /minMD Kallie Chase Work Phone: 1(985)[address]10-02-2024 02:04-0400 SaO2% (BldA) [Mass fraction]99 %MD Kallie Chase Work Phone: 1(033)[address]10-02-2024 02:04-0400 Systolic blood slsfnwxi665 mm[Hg]MD Kallie Chase Work Phone: 1(933)027-06[facility]10-01-2024 15:44-0400 Body .56 cmMD Kallie Chase Work Phone: 1(552)[address]10-01-2024 15:44-0400 Body atqmgf78.9 kgMD Kallie Chase Work Phone: 1(293)[address]09-30-2024 17:45-0400 Diastolic blood iqklghso70 mm[Hg]MD Kallie Chase Work Phone: 1(002)12172 [address]09-30-2024 17:45-0400 Heart rate54 /minMD Kallie Chase Work Phone: 1(819)12772 [address]09-30-2024 17:45-0400 Respiratory rate16 /minMD Kallie Chase Work Phone: 1(565)[address]09-30-2024 17:45-0400 SaO2% (BldA) [Mass fraction]100 %MD Kallie Chase Work Phone: 1(978)[address]09-30-2024 17:45-0400 Systolic blood vnvkibuf451 mm[Hg]MD Kallie Chase Work Phone: 1(523)[address]09-30-2024 16:13-0400 Body xewxijgkhuz43.1 [degF]MD Kallie Chase Work Phone: 1(976)28372 [address]09-30-2024 16:13-0400 Inhaled oxygen flow rate8 L/minMD Kallie Chase Work Phone: 1(796)30[address]09-30-2024 12:50-0400 Body .56 cmMD Kallie Chase Work Phone: 1(818)02772 [address]09-30-2024 12:50-0400 Body cpobal25.2 kgMD Kallie Chase Work Phone: 1(706)[address]172 [address]09-19-2024 14:55-0400 Body .56 cmMD Kallie Chase Work Phone: 1(893)[address]09-19-2024 14:55-0400 Body mass index (BMI) [Ratio]18.3 kg/m2MD Kallie Chase Work Phone: [facility]09-19-2024 14:55-0400 Body .53 kgMD Kallie Chase Work Phone: [facility]08-09-2024 08:29-0400 Body .56 cmC[facility]08-09-2024 08:29-0400Body mass index (BMI) [Ratio]18.3 kg/j9CakbgzwrwCleveland Clinic Foundation08-09-2024 08:29-0400Body .53 kgC[facility] Clinic [facility]08-09-2024 08:29-0400Diastolic blood mm[Hg][facility] 05-14-2024 08:29-0400Heart rate43 /minCleveland Clinic [facility] 05-14-2024 08:29-0400Systolic blood enqavwph54 mm[Hg][facility]06-28-2024 11:28-0400Body ebzaep682.56 cmMD Kallie Chase Work Phone: 1([phone]06-28-2024 11:28-0400 Body mass index (BMI) [Ratio]18.3 kg/m2MD Kallie Chase Work Phone: [phone]06-28-2024 11:28-0400 Body sjcfisnusro94.7 [degF]MD Kallie Chase Work Phone: 1(892)723-37[facility]06-28-2024 11:28-0400 Body .53 kgMD Kallie Chase Work Phone: 1(564)885-85[facility]06-28-2024 11:28-0400 Diastolic blood gujybhgn76 mm[Hg]MD Kallie Chase Work Phone: [facility]06-28-2024 11:28-0400 Heart rate62 /minMD Kallie Chase Work Phone: 1(110)041-19[facility]06-28-2024 11:28-0400 SaO2% (BldA) [Mass fraction]97 %MD Kallie Chase Work Phone: [facility]06-28-2024 11:28-0400 Systolic blood xuhemmna309 mm[Hg]MD Kallie Chase Work Phone: [facility]04-12-2024 10:14-0400 Body .56 cmMD Kallie Chase Work Phone: [facility]04-12-2024 10:14-0400 Body mass index (BMI) [Ratio]18.8 kg/m2MD Kallie Chase Work Phone: [facility]04-12-2024 10:14-0400 Body eljecv64.89 kgMD Kallie Chase Work Phone: [facility]03-13-2024 09:06-0400 Body semwem930.56 cmC[facility] Clinic Foundation03-13-2024 09:06-0400Body mass index (BMI) [Ratio]18.4 kg/o3XalaviyrwCleveland Clinic Foundation03-13-2024 09:06-0400Body ditvky47.76 kgCleveland Clinic Foundation03-13-2024 09:06-0400Diastolic blood jyoeuntd29 mm[Hg][facility] 12-17-2023 09:06-0400Heart rate69 /minCleveland Clinic Foundation 12-17-2023 09:06-0400Systolic blood mm[Hg][facility]12-29-2023 12:55-0500Body .56 Bess Mccarthy Other [facility]12-29-2023 12:55-0500 Body mass index (BMI) [Ratio]18.54 kg/m2Jennifer Mccarthy Other [employer] Other 12-29-2023 12:55-0500Body bzyafxshnar36.1 [degF]Jennifer Mccarthy Other [facility] [employer] Other 12-29-2023 12:55-0500Body ofuwvm12.99 kgJennifer Mccarthy Other [employer] Other 12-29-2023 12:55-0500Body koyobq89.98 [facility]12-29-2023 12:55-0500Diastolic blood slisqdvh66 mm[Hg] Jennifer Mccarthy Other [facility]12-29-2023 12:55-0500 SaO2% (BldA) [Mass fraction]91 %Jennifer Mccarthy Other [employer] [employer] Other 12-29-2023 12:55-0500Systolic blood mm[Hg] Jennifer Mccarthy Other [facility]08-17-2023 09:00-0400 Body uzqgup058.56 cmKallie Chase Other [employer] Other 08-17-2023 09:00-0400Body mass index (BMI) [Ratio] 18.19 kg/a5RbuyvvKallie Chase Other [employer] Other 08-17-2023 09:00-0400Body dvfcce38.08 kgKallie Chase Other [employer] Other 08-17-2023 09:00-0400Diastolic blood jcvbbgur61 mm[Hg] Kallie Chase Other [employer] Other 08-17-2023 09:00-0400Systolic blood wyijljbl467 mm[Hg] Kallie Chase Other [employer] Other 08-09-2023 08:30-0400Body srzqax227.56 cmKallie Salvatore Other [employer] Other 08-09-2023 08:30-0400Body mass index (BMI) [Ratio] 18.88 kg/n1Yfaglt Braun Other [employer] Other 08-09-2023 08:30-0400Body eaaoey00.9 kgKallie Salvatore Other [employer] Other 08-09-2023 08:30-0400Diastolic blood mm[Hg] Kallie Chase Other [employer] Other 08-09-2023 08:30-6158TtR0% (BldA) [Mass fraction]97 % Kallie Chase Other [facility] Other 08-09-2023 08:30-0400Systolic blood pskkeyyk589 mm[Hg] Kallie Chase Other [facility] Other 07-19-2023 09:00-0400Body ygiael716.56 cmChardarwindenise Chase Other [facility] Other 07-19-2023 09:00-0400Body mass index (BMI) [Ratio] 18.54 kg/w7UaukjrKallie Chase Other [facility] Other 07-19-2023 09:00-0400Body bzdmgi62.99 kgChardarwindenise Chase Other [facility] Other 07-19-2023 09:00-0400Diastolic blood mm[Hg] Kallie Chase Other [facility] Other 07-19-2023 09:00-0400Systolic blood hikaakji878 mm[Hg] Kallie Chase Other [employer] Other 04-05-2023 11:00-0400Body oyobaf692.56 cmRobert Antonio II Other [employer] Other 04-05-2023 11:00-0400Body mass index (BMI) [Ratio] 19.05 kg/d3Ovazsz Antonio II Other [facility] Other 04-05-2023 11:00-0400Body .35 kgRobert [place] II Other [facility] Other 02-06-2023 11:45-0500Body fwykaw244.56 cmKallie Chase Other [facility] Other 02-06-2023 11:45-0500Body mass index (BMI) [Ratio] 19.05 kg/i4NbmhcqKallie Chase Other [employer] Other 02-06-2023 11:45-0500Body yttnfl07.35 kgKallie Chase Other [facility] Other 02-06-2023 11:45-0500Diastolic blood wnsnocoq53 mm[Hg] Kallie Chase Other [facility] Other 02-06-2023 11:45-0500Systolic blood dbuvmmjy302 mm[Hg] Kallie Chase Other [facility] Other Encounters Encounter DateEncounter Type[facility] ProviderFacilityStart: 08-15-2025 End: [id number] outpatient visit 25 minutesYandy Hector MD Work Phone: [facility]Comment [facility] above:S/P mitral valve repair; Mixed hyperlipidemia; Bradycardia, unspecified; Body mass index (BMI) 19.9 or less, adult; Never smoked tobaccoStart: 08-15-2025 End: 50-12-8683ilptkyiclmNHEVEWVA [facility] AmbulatoryStart: 07-01-2025 End: [id number] E Braun MD Work Phone: [facility] [facility] Work Phone: Start: 07-01-2025 End: 73-73-8834Qvnuaif encounter procedureRobert Antonio Huizar MD-[facility] Work Phone: Start: 06-23-2025 End: 36-81-9155csxybejpzzRsanfd E Braun MD Work Phone: [facility] Work Phone: Start: 06-23-2025 End: 66-34-1374Iivieqp encounter procedureKallie Chase MD-[facility] Work Phone: Start: 06-21-2025 End: 91-73-2044Srbybx flowsheetDasia Patricia MD Work Phone: [facility] [place] [facility]atologyStart: 06-21-2025 End: 01-53-8714Pqkjqy flowsheetDasia Patricia MD Work Phone: [facility] [place] [facility]ermatologyStart: 06-21-2025 End: 70-17-1286Aergli outpatient visit 15 minutesEmmelanie Patricia MD Work Phone: [facility]oms [place] DermatologyComment on above:Melanocytic nevus of trunk (Primary Dx); History of malignant melanoma of skin; History of nevus excision; Lentigines; Seborrheic keratosis; Capillary angiomaStart: 06-21-2025 End: 21-20-9036bijaazfmjnACOAW A PETITTINot AvailableStart: 03-28-2025 End: 19-79-9361Zodstks encounter procedureMarcia E Chase MD-[facility] Work Phone: Start: 11-29-2024 End: 91-08-2868Xvthih flowsheetFelicia C Windnagel AML ANALYST Work Phone: noms BM NEUROLOGYStart: 11-29-2024 End: 78-79-1079Bpnest flowsheetFelicia C Windnagel AML ANALYST Work Phone: noms BM NEUROLOGYStart: 11-29-2024 End: 84-02-1824fitqrqoripHHTUPIG C WINDNAGELNot AvailableStart: 11-29-2024 End: 47-16-4241Ylxiwm outpatient visit 25 minutesFelicia Renetta Singletarynagel AML ANALYST Work Phone: noms SWS NEURComment on above:Lumbosacral radiculopathy; Disturbance of skin sensation; Vitamin D deficiency; Carpal tunnel syndrome of right wrist; Carpal tunnel syndrome on leftStart: 11-08-2024 End: 84-23-9291ighhurktmyFEQLYB L WINANSNot AvailableStart: 11-08-2024 End: 88-56-1498Vefgci outpatient visit 10 minutesAlison L Hermilo PA Work Phone: NOAC TSR DERMComment on above:Abrasion (Primary Dx) Start: 11-08-2024 End: 01-30-3225Zfnbyz flowsheetAlison L Hermilo PA Work Phone: NOMS TSR DERMStart: 11-08-2024 End: 64-23-3476Fewudv flowsheetAlison L Hermilo PA Work Phone: NOSG TSR DERMStart: 10-19-2024 End: 65-96-8314uzrhqqznfhLpslhi E BraunFacility:[facility] HospitalStart: 10-14-2024 End: 21-02-8848Drimnx flowsDeven Patricia MD Work Phone: noms SWS DERMStart: 10-14-2024 End: 46-64-0514Qxulge Sara Patricia MD Work Phone: noms [facility] DERMStart: 10-14-2024 End: 70-30-7676lwgiyzszesLEVOH Denise Segundo AvailableStart: 10-14-2024 End: 33-74-9978Abkomf outpatient visit 15 minutesEmily Denise Patricia MD Work Phone: noms [facility] DERMComment on above:Melanocytic nevus of trunk (Primary Dx); Pilar cyst; Lentigines; History of nevus excision; History of malignant melanoma of skin; Seborrheic keratosis; Inflamed hair follicleStart: 10-01-2024 End: 25-40-5227wyishgyikvPdxtvm E BraunFacility:[facility] Hospitaltart: 09-14-2024 End: 35-83-4758xlbsffjjgiOGPCAWP D BRUNERNot AvailableStart: 09-14-2024 End: 63-42-3062Zmvsntt encounter procedureThaddeus Mcclendon DO Work Phone: noms [facility] OBComment on above:Encounter for gynecological examination without abnormal finding; Encounter for Papanicolaou smear of cervix; Breast cancer screening by mammogram; Osteoporosis, post-menopausal ([facility])Start: 09-14-2024 End: 92-70-7435Ukjmues encounter statusThaddeus Mcclendon DO Work Phone: noms HealthcareStart: 08-18-2024 End: 59-71-3762klosdkboljXkofog E Braun MD Work Phone: [facility] Work Phone: Start: 08-18-2024 End: 81-44-3842Rebrshn encounter procedureKallie Chase MD Work Phone: [facility] Work Phone: Start: 08-18-2024 End: 94-19-0126Prjpaui encounter procedureKallie Chase MD Work Phone: [facility]-Froylan Reis Start: 08-18-2024 End: 36-01-2115dlwgorpjkoHpswmp E Braun MD Work Phone: [facility] Work Phone: Start: 08-09-2024 End: 58-86-9776Fgrqay outpatient visit 25 minutesYandy Hector MD Work Phone: uh [facility] on above:Encounter to discuss test results; Hospital discharge follow-up; Heart murmur; S/P mitral valve repair; Mixed hyperlipidemia; Body mass index (BMI) 19.9 or less, adult; Hard of hearingStart: 07-22-2024 End: 20-61-0367oipfhvxibePD Marcia E Braun Work Phone: [facility] Work Phone: Start: 07-22-2024 End: 65-12-0090Mmwdluy encounter procedureMD Kallie Chase Work Phone: [facility] Work Phone: Start: 07-21-2024 End: 83-97-3037yvekdycyajKG Marcia E Braun Work Phone: [facility] Work Phone: Start: 07-21-2024 End: 73-63-5249Ykjuhwk encounter procedureMD Kallie Chase Work Phone: [facility] Work Phone: Start: 07-06-2024 End: 95-27-9015Oeouutybfh and management of inpatientMD Kallie Chase Work Phone: [facility] Work Phone: Start: 07-05-2024 End: 65-42-7562Rjyfzzpat to same day surgery centerMD Kallie Chase Work Phone: [facility]-Surgery Center Main [place]Start: 07-05-2024 End: 93-76-0310gouwwfhaylJI Marcia E Braun Work Phone: [facility] Work Phone: Start: 15-81-8592Psb-patient / Non-visitMD Kallie Chase Work Phone: [facility] Work Phone: Start: 06-25-2024 End: 71-22-5409ihdqvpdnzaPR Kallie Chase Work Phone: [facility] Work Phone: Start: 06-25-2024 End: 30-13-6177Axagwyf encounter procedureMD Kallie Chase Work Phone: [facility] Work Phone: Start: 06-24-2024 End: 32-15-0093Ayzqbdy encounter procedureMD Kallie Chase Work Phone: [facility] Work Phone: Start: 06-24-2024 End: 30-68-8644iuvatlalkjKL Kallie Chase Work Phone: [facility] Work Phone: Start: 06-24-2024 End: 47-09-3303Gaaobjtjxc RecurringMD Kallie Chase Work Phone: [facility]-Physical Therapy [place]Start: 64-45-5245Biwqofouse RecurringMD Kallie Chase Work Phone: [facility]-Physical Therapy [place]Start: 06-22-2024 End: 16-47-6721Fhbosw flowsheetViraj A Jhonny DO Work Phone: [facility]oms CI ORTHOPAEDICSStart: 06-22-2024 End: 69-06-5937Fxoopi flowsheetJames A Jhonny DO Work Phone: noms CI ORTHOPAEDICSStart: 06-22-2024 End: 06-56-0842Zrtgyb outpatient visit 10 minutesJames A Jhonny DO Work Phone: NOUV CI ORTHOPAEDICSComment on above:Primary osteoarthritis of right hip; Status post total hip replacement, rightStart: 06-21-2024 End: 12-12-2518oksjsoudjiWY Marcia E Braun Work Phone: [facility] Work Phone: Start: 06-21-2024 End: 44-43-9912Lrzaefs encounter procedureMD Kallie Chase Work Phone: [facility]-Pre-Surgical Testing Work Phone: Start: 54-00-8599Fllakpihhhum stateMD Kallie Chase Work Phone: [facility]: 05-14-2024 End: 15-58-1804tiryqsfqhrAqldiljnz [facility] Work Phone: Start: 05-14-2024 End: 53-53-2091Ccolnwl encounter procedureWilson [facility] Work Phone: Start: 50-89-0610Ajb-patient / Non-[facility] Work Phone: Start: 04-15-2024 End: 98-67-6824cplqdcclitGY Marcia E Braun Work Phone: [facility] Work Phone: Start: 04-15-2024 End: 56-30-4871Lahzvfo encounter procedureMD Kallie Chase Work Phone: [facility] Work Phone: Start: 04-02-2024 End: 05-28-2652pmhlhrqoayFW Marcia E Braun Work Phone: [facility] Work Phone: Start: 04-02-2024 End: 97-85-9465Geboncm encounter procedureMD Kallie Chase Work Phone: [facility] Work Phone: Start: 01-16-2024 End: 30-18-2112zgsnsduoohVG Kallie Chase Work Phone: [facility] Work Phone: Start: 01-16-2024 End: 91-82-4494Jcfwwyz encounter procedureMD Kallie Chase Work Phone: [facility] Work Phone: Start: 51-78-4789Zbv-patient / Non-visitMD Kallie Chase Work Phone: [facility] Work Phone: Start: 12-17-2023 End: 99-44-1547nmtbrxeilvWspemimrgUniversity Hospitals Health System Work Phone: Start: 12-17-2023 End: 98-40-9628Pvxrjnc encounter procedureWilson [facility] Work Phone: Start: 50-87-9869Les-patient / Non-visitF[facility] Physician [facility] Work Phone: Start: 46-82-2723Zcs-patient / Non-visitF[facility] Phys[facility] GroupPe[facility] Work Phone: Start: 37-01-7237Acoju abstractingViraj Barry DO Work Phone: noms CI ORTHOPAEDICSStart: 11-18-2023 End: 27-68-7627Nlmkhz outpatient visit 10 minutesViraj Barry DO Work Phone: noms CI ORTHOPAEDICSComment on above:Primary osteoarthritis of right hip (Primary Dx); Status post total hip replacement, rightStart: 10-03-2023 End: 85-57-9268jritylmddyRakm Hahn Other [employer] Other Start: 23-51-8758Jsyyka outpatient visit 10 minutes Jennifer PrasadNavjotG Urgent Care ClydeStart: 10-03-2023 End: 58-48-7542Vzphlbx encounter procedureWilson [facility] Work Phone: Start: 08-19-2023 End: 13-31-9637drrxncpupoHA Kallie Benítez Salvatore Work Phone: [facility] Work Phone: Start: 08-19-2023 End: 85-65-7714Tsvobmy encounter procedure Kallie Chase Work Phone: [facility]-[address] Work Phone: Start: 05-22-2023 End: 71-07-6817asmvbtoexmVjanpm Braun Other [employer] Other Start: 44-60-9840Vvppmmagy for other preprocedural examinationMartima ChaseWVUMedicine [facility] Hospital ClinicStart: 78-91-0904Pwtizc outpatient visit 15 minutesChartima SalvatoreSheltering Arms Hospitaltart: 05-15-2023 End: 88-07-8482kvgqxqkjxvQsqogt Braun Other [address] Other Start: 22-53-1669Ptkfviafq encounterMartima ChaseDANIELCarlos [facility]unn [facility] ClinicStart: 05-14-2023 End: 69-36-2688nyooxytdlrFekfak Braun Other [address] Other Start: 89-68-1717Kyvxyy outpatient visit 15 minutes Kallie SalvatoreCarlos [facility] Taylortart: 04-25-2023 End: 13-21-9608zlwjipdesaWHDAGLZThe [facility] Start: 04-25-2023 End: 72-07-7567Agrwanghr for other preprocedural examinationBlanchard Valley Health Systemtart: 04-23-2023 End: 49-61-5025spztrfmkauSwtgpx Braun Other [employer] Other Start: 47-46-6755Zfiiui outpatient visit 15 minutes Kallie [facility] ClinicStart: 04-11-2023 End: 91-94-7825hzznbsanysTddzex Braun Other [employer] Other Start: 86-32-5066Fbwvmzzyg encounterMartima SalvatoreJUAN Bunn Medical ClinicStart: 50-16-7431zsyzajbbldVH KALLIE CHASEFacility:V2Legfg: 45-42-5735Obanbv outpatient new 45 minutesRobert Antonio IIFPElizabeth Mason Infirmary OrthopedicsStart: 01-08-2023 End: 04-14-6988vcrhiozeywVZ Kallie Chase Work Phone: [employer] Other Start: 01-08-2023 End: 83-79-4513Xphaoje encounter procedureMD Kallie Chase Work Phone: [facility] Start: 11-11-2022 End: 22-00-2801hsiwizivxuHhtkcm Braun Other [employer] Other Start: 42-95-9203Rgdmdu outpatient visit 15 minutes Kallie [facility] ClinicStart: 10-24-3111uyulyjkmpfJF KALLIE CHASE Facility:E5Uzygg: 09-13-2022 End: 94-57-9033zsoudxzihwCP KALLIE CHASEFacility:C9Wmbof: 98-56-8218Kwvnj health examinationKallie Chase Other [address] Other Start: 75-74-2194Aciwrswxx for general adult medical examination without abnormal findingsKallie Chase Other [employer] Other Start: 06-12-2022 End: 76-09-5589edpguisqslRL FARZADD ABBASFacility:M8Symzf: 05-23-2022 End: 69-08-4309gtowblylaaZQ KALLIE Jeyson SALVATOREFacility:V0Wrmux: 05-20-2022 End: 06-34-3534xrfzlsjkvaZW EHAB ELTAHAWYFacility:D6Nqlsk: 04-24-2022 End: 88-17-7955xafdggspswBM KALLIE E SALVATOREFacility:S1Lnzxj: 08-10-2021 End: 83-11-6375Fqfpghzsq for other preprocedural examinationKallie Chase Other [address] Other Start: 08-10-2021 End: 20-79-5357Qbu-procedure evaluation checkKallie Salvatore Other [address] Other Start: 03-22-2021 End: 89-51-4215Evyvaxhkhe and management of inpatientMARTIMA SALVATOREFacility:[facility] Start: 03-14-2021 End: 16-95-0373sfnqssmkijDKIXIHUC SELFFacility:RUSTtart: 02-27-2021 End: 55-04-5424xpijoifzhvZBACUNTQ SELFFacility:[facility]URN CENTERtart: 19-57-9980Dfmlxsqle for gynecological examination (general) (routine) with abnormal findingsKallie Salvatore Other [address] Other Start: 62-55-8875Ijddwyzwodsqc examination abnormal Kallie Salvatore Other [address] Other Procedures DateProcedureProcedure DetailPerforming ClinicianStart: 65-30-9794Bko routine ecg w/least 12 lds w/i&rGjuju Hector MD Work Phone: Start: 72-99-6773Lwanq x-ray of pelvis and lower extremityKallie Chase MD Work Phone: Start: 40-46-4960Emzpd X-ray of left hipKallie Chase MD Work Phone: Start: 98-16-0180Mfnkrxo ultrasonography of bilateral carotid arteriesMD Kallie Chase Work Phone: Start: 02-23-0121[place] of head without contrastMD Kallie Chase Work Phone: Start: 82-36-0251Tqhxe chest X-rayMD Kallie Chase Work Phone: Start: 07-05-2024 End: 86-10-6448Wvmxq X-ray of left hipMD Kallie Chase Work Phone: Start: 76-57-1686Rmenb replacement of left hip jointMD Kallie Chase Work Phone: Start: 53-00-9571Nhwfo hip unilateral with pelvis 2-3 viewsJames A Jhonny DO Work Phone: Start: 44-00-6690Uyumz X-ray of left hipMD Kallie Chase Work Phone: Start: 26-25-4218Psdrg hip unilateral with pelvis 2-3 viewsJames A Jhonny DO Work Phone: Start: 19-79-1506Mpfty X-ray of right hipMD Kallie Chase Work Phone: Start: 81-01-7819XGVLMFNT ASSISTED PROCEDURE OF TRUNK REGIONSAQIB MASROORStart: 93-94-8049XCVGPZAW OF MITRAL VALVE, PERCUTANEOUS APPROACHSAQIB MASROORStart: 77-05-4998LTJLXIICC OF OTH THERAP SUBST INTO RESP TRACT, VIA OPENINGSAQIB MASROORStart: 00-53-0088ICJEERZIWMWP OF OTH THERAP SUBST INTO HEART, PERC APPROACHSAQIB MASROORStart: 13-67-3072Fookesjlpgy of Cardiac Output, ContinuousSAQIB MASROORStart: 40-16-0446AFDSUJJVGT MITRAL VALVE WITH SYNTH SUB, PERC APPROACHSAQIB MASROORStart: 98-25-6245JDGIGAUVREJHZPR OF RIGHT AND LEFT HEART, TRANSESOPHAGEALSAQIB MASROORStart: 68-95-1125Omzniqpo screen REFERRED SELFComment on above:Performed By: #### [id number] #### [facility] [address] [place] [address], USAStart: 59-34-6125Cvbmiyjml for malignant neoplasm of colon Kallie Salvatore Other Start: 71-45-6157Ymqhtxu of sutureMarcia Chase Other H/O: surgeryHistory of nevus excisionDasia Patricia MD Work Phone: H/O: surgeryHistory of nevus excisionDasia Patricia MD Work Phone: End: 82-91-0921Hdrgtgpga for malignant neoplasm of breastMarcia Chase Other Screening for malignant neoplasm of skinMarcia Chase Other Screening for osteoporosisMarcia Chase Other Plan of Treatment DateCare ActivityDetailAuthorStart: 08-14-2026 End: 56-80-3992Qyubdiz encounter yqbxcelwa56/09/2026 1:15 PM EST Office Visit [facility] [address] [facility] [address] [place] [address] Yandy Hector MD [address] [facility] [address] [place] [address] [facility] CenterStart: 06-22-2026 End: 17-45-1112Bufabbm encounter uzigneyjx27/17/2026 9:30 AM EDT Office Visit [facility] [address] [place] [address] Dasia Patricia MD [address] [place] [address] [facility]ermatologyStart: 11-28-2025 End: 81-69-4355Cbkiscs encounter procedureNOMS SWS NEURStart: 09-19-2025 End: 66-48-5426Mgokqsl encounter procedureNOMS SWS OBStart: 08-15-2025 End: 93-95-1587Umkrvrywxxfyk metabolic 2000 panel - Serum or PlasmaComprehensive Metabolic Panel Lab Routine S/P mitral valve repair Mixed hyperlipidemia Expected: 08/15/2025, Expires: 08/15/2026[facility] Work Phone: Comment on above:Expected: 08/15/2025, Expires: 08/15/2026Start: 08-15-2025 End: 49-73-8989Kmnbl 1996 panel - Serum or PlasmaLipid Panel Lab Routine Mixed hyperlipidemia Expected: 08/15/2025, Expires: 08/15/2026[facility] Work Phone: Comment on above:Expected: 08/15/2025, Expires: 08/15/2026Start: 08-15-2025 End: 95-24-2549Wgcrftg encounter iafvnvbeu94/10/2025 1:00 PM EST Office Visit [facility] [address] [facility] [address] [place] [address] Yandy Hector MD [address] [facility] [address] [place] [address] [facility] CenterStart: 41-53-7636Kdrhf X-ray of left hipXR hip LT min 2V(w/wo pelvis)*[facility]: 01-17-4627MR Hip - left 2 ViewsWood County Hospitaltart: 06-28-2025 End: 74-32-6992Rubompy encounter jmnxurtpf72/23/2025 9:00 AM EDT Office Visit [facility] [address] [facility] [address] [place] [id number] Viraj Barry DO [address] [place] [address] [facility] ORTHOPAEDICSStart: 06-21-2025 End: 38-08-1795Dhwrgxx encounter procedureNOMS SWS DERMComment on above:Arrived Start: 14-39-9722BHKWV-19 Vaccine ( season)COVID-19 Vaccine ( season)[facility]: 74-94-7707Vsqciepda vaccinationInfluenza Vaccine (#1)[facility]: 04-95-5711Izsrhzvqq for osteoporosisBone Density ScanUnRegency Hospital [facility]: 11-29-2024 End: 68-29-3431Doxlfae encounter xuovszuwv02/24/2025 8:30 AM EST Office Visit [facility] [address] [facility] [address] [place] [address] Braxton Jacobsen AML ANALYST [address] [facility] [address] [place] [address] [facility] NEURStart: 11-01-2024 End: 54-35-5118Vhpwrvi encounter oeysoujil65/27/2025 10:40 AM EST Office Visit [facility] NE[facility] [address] [facility] [address] [place] [address] Juan Pablo Doshi MD [address] [facility] [address], [place] [address] [facility] NEURStart: 10-14-2024 End: 21-50-3919Rkxdmmu encounter aiyddklya13/09/2025 1:20 PM EST Office Visit [facility] DERM [address] [place] [address] Dasia Patricia MD [address] [place], [place] [id number] [facility] DERMStart: 09-14-2024 End: 14-19-5748Jvzqjlz encounter oydbkrbic49/10/2024 10:00 AM EST Office Visit [facility] OB [address] [place] [address] Thaddeus Mcclendon, DO [address] [place] [address] [facility] SWS OBStart: 39-07-9951Xyhxp X-ray of left hipXR hip LT min 2V(w/wo pelvis)*[facility] CenterStart: 76-94-4398ZJ Hip - left 2 ViewsFisher-Titus Medical Center CenterStart: 08-09-2024 End: 87-06-2481Ogmhxsrnzxeha metabolic 2000 panel - Serum or PlasmaComprehensive Metabolic Panel Lab Routine Mixed hyperlipidemia Expected: 08/09/2024 (Approximate), Expires: 08/09/2025[facility] Work Phone: Comment on above:Expected: 08/09/2024 (Approximate), Expires: 08/09/2025Start: 08-09-2024 End: 77-83-0777Hodhi 1996 panel - Serum or PlasmaLipid Panel Lab Routine Mixed hyperlipidemia Expected: 08/09/2024 (Approximate), Expires: 08/09/2025[facility] Work Phone: Comment on above:Expected: 08/09/2024 (Approximate), Expires: 08/09/2025Start: 66-73-4854NkctzowlnFisher-Titus Medical Center CenterStart: 21-32-1828DaqsmafytFisher-[facility] Center CenterStart: 14-27-6010VtxdykjzaFisher-[facility]itus [facility] Center CenterStart: 62-03-8536MavxyubrnFisher-[facility] CenterStart: 69-70-0439MivsosyyzFisher-[facility]itus Medical Center CenterStart: 97-84-9846ZrqhdwhlbFisher-[facility]itus [facility] Center CenterStart: 54-15-6876JdrelexfvFisher-[facility] CenterStart: 27-16-7529PedyuyhzaFisher-[facility]itus [facility] Center CenterStart: 55-23-1585VzrcviidsFisher-[facility] CenterStart: 07-07-2024 End: 16-63-6906ZdkianwkdFisher-Titus Medical Center CenterStart: 47-60-4862Oznwntw ultrasonography of bilateral carotid arteriesUS carotid doppler BIFMercy Health St. [facility] CenterStart: 09-85-4619AG.doppler Carotid arteries - bilateral [facility] CenterStart: 12-55-1339Jdnpcjxv therapy procedure [facility]: 87-90-1505Vxcmssfd to occupational therapistWood County Hospitaltart: 57-86-6456Wymkklhr admission [facility]: 28-48-2080FopkuvibaWood County Hospitaltart: 61-39-1732Oywbsacj admissionWood County Hospitaltart: 00-70-9568AA Hip - left GE 2 ViewsWood County Hospitaltart: 07-05-2024 End: 49-08-8840Gxjlv X-ray of left hipWood County Hospitaltart: 10-67-6604YC Hip - left 2 [facility]: 07-05-2024 End: 23-85-6297ZxmmdhkloWood County Hospitaltart: 06-22-2024 End: 66-35-8730Izrvqyj encounter fdjkdifyb04/17/2024 9:30 AM EDT Office Visit [facility] [address] [facility] [address] [place] [address] Viraj Barry, DO [address] [facility] [address] [place] [address] Primary osteoarthritis of right hip; Status post total hip replacement,rightNOMS CI ORTHOPAEDICSComment on above:Primary osteoarthritis of right hip; Status post total hip replacement, rightStart: 59-76-8346PvlmlplslWood County Hospitaltart: 06-08-2024 End: 95-54-7987Oedmypa encounter dzrmyfjgh27/03/2024 9:15 AM EDT Office Visit [facility] [address] [facility] [address] [place] [address] Viraj Barry, DO [address] [facility] [address] [place] [address] [facility] CI ORTHOPAEDICSStart: 15-22-9660QWTPX-19 Vaccine ( season)COVID-19 Vaccine ( season)[facility]: 79-13-8958Ptktxligo vaccination Influenza Vaccine (#1)[facility] HospitalStboron: 04-15-2024 End: 95-79-9548Fptacka encounter sudwpqhcj72/11/2024 1:30 PM EDT Office Visit [facility] [address] [place] [address] Dasia Patricia MD [address] [place] [address] [facility] SWS DERMStart: 24-57-3473Mtrlp X-ray of left hipXR hip LT min 2V(w/wo pelvis)*[facility]: 48-51-1682QP Hip - left 2 ViewsWood County Hospitaltart: 52-99-0976Odhbawm referralDoctors Hospital Work Phone: Start: 11-18-2023 End: 74-46-8577Sewotvp encounter dgjzaelum67/13/2024 11:00 AM EST Office Visit [facility] [address] [facility] [address] [place] [address] Viraj Barry DO [address] [facility] [address] [place] [address] [facility] ORTHOPAEDICSStart: 28-90-9554Einwwo Vaccines (3 of 3)Zoster Vaccines (3 of 3)[facility]: 28-73-0225PHG Vaccines (1 of 1 - Standard series)MMR Vaccines (1 of 1 - Standard series)[facility]: 10-22-2018 Pneumococcal vaccinationPneumococcal Vaccine (2 of 2 - PCV)[facility]: 61-69-1431Tpktrdvhnayt Vaccine: 65+ Years (2 of 2 - PCV) Pneumococcal Vaccine: 65+ Years (2 of 2 - PCV)[facility] Start: 50-56-8288RRO High Risk: (Elderly (60+) or Population) (1 - Risk 60-74 years 1-dose series)RSV High Risk: (Elderly (60+) or Population) (1 - Risk 60-74 years 1-dose series)[facility]: 32-77-4263GWT High Risk: (Elderly (60+) or Population) (1 - Risk 50-74 years 1-dose series)RSV High Risk: (Elderly (60+) or Population) (1 - Risk 50-74 years 1-dose series)[facility]: 77-95-8820Qzxqrjfzz for malignant neoplasm of breastMammogramUnRegency Hospital [facility]: 07-02-3455PCtU/Tdap/Td Vaccines (1 - Tdap) DTaP/Tdap/Td Vaccines (1 - Tdap)[facility]: 13-46-4073Fgldwbwvg C screeningHepatitis C ScreeningHolzer Medical Center – [facility]: 24-19-5799Tslto panelLipid PanelHolzer Medical Center – [facility]: 01-01-1951Medicare Annual Wellness VisitMedicare Annual Wellness Visit (AWV)[facility] Jackson: 13-07-8503Sjxpjeftz for malignant neoplasm of colonUnRegency Hospital Cleveland East: 1950 Skin Cancer ScreeningSkin Cancer ScreeningFayette County Memorial Hospital Start: 50-77-7088Kqllimr stimulating hormone measurementTSMercy Hospital Ada – AdaAnion gap measurementCleveland Clinic Foundation Basophils [#/volume] in Blood by Automated [facility] HospitalBasophils/100 leukocytes in Blood by Automated countCleveland Clinic FoundationEosinophils/100 leukocytes in Blood by Automated [facility] HospitalErythrocyte distribution width [Ratio] by Automated count [facility] FoundationErythrocytes [#/volume] in [facility] HospitalHematocrit [Volume Fraction] of [facility] HospitalHemoglobin [Mass/volume] in [facility] Hemoglobin [Mass/volume] in [facility] HospitalIGP,rfxAptima HPV all,16/18,45IGP,rfxAptima HPV all,16/18,45 Pathology and Cytology Routine Encounter for Papanicolaou smear of cervix Ordered: 09/14/2024[facility] Work Phone: comment on above:Ordered: 09/14/2024Leukocytes [#/volume] corrected for nucleated erythrocytes in Blood by Automated coun [facility] FoundationLeukocytes [#/volume] in BloodCleveland Clinic FoundationLymphocytes [#/volume] in Blood by Automated count [facility] FoundationLymphocytes/100 leukocytes in Blood by Automated [facility] HospitalMCH [Entitic mass] by Automated countCleveland Clinic FoundationMCHC [Mass/volume] by Automated count [facility] FoundationMCV [Entitic volume] by Automated count [facility] FoundationMethicillin resistant Staphylococcus aureus [Presence] in Unspecified specimen by Organism specificcultureCleveland Clinic FoundationMonocytes [#/volume] in Blood by Automated [facility] HospitalMonocytes/100 leukocytes in Blood by Automated count [facility] FoundationNeutrophils [#/volume] in Blood by Automated [facility] HospitalNeutrophils/100 leukocytes in Blood by Automated [facility] HospitalNucleated erythrocytes [Presence] in Blood by Automated [facility] HospitalPatient EducationMercy Health Defiance Hospital Work Phone: [facility] referralDoctors Hospital Work Phone: Platelet mean volume [Entitic volume] in Blood by Automated [facility] HospitalPlatelets [#/volume] in Blood [facility] FoundationUS Lower extremity vein - [facility] Immunizations Immunization DateImmunizationNotesCare XbugdksnErbybaza58-48-3978juqirh vaccine recombinantJames Jhonny DO Work Phone: [facility] CenterHrrqapkcyz78-97-5364necqzt vaccine, liveMarcia Chase Other [facility]12-20-2021zoster vaccine recombinantJames Jhonny DO Work Phone: noSac-Osage HospitalLcfpjyktzc32-10-7411tunakn vaccine, liveMarcia Chase Other [facility]01-17-2018 pneumococcal polysaccharide vaccine, 23 valentJames Jhonny DO Work Phone: [facility] CenterNbtxzadiza04-88-1557myggit Lito morfin DO Work Phone: [facility] Payers DatePayer CategoryPayerPolicy [id number] MEDICARE ADVANTAGE [id number] 2022Medicare [id number] 2022Medicare (Managed Care)AETNA GOLDEN MEDICARE [id number] [id number] 2.16840.3.32727[id number] 2.16840.1.883659.3.579.2.647 [id number] 2.16.840.1.715190.3.57[id number] 2.16.840.1.137878.3.579.2.27271-00-8535Dzckkpn7966139 2.16.840.1.297643.3.579.2.92663-48-8924Ksdcqsx3575865 2.16.840.1.923713.3.579.[id number] 2.16.840.1.003005.3.579.[id number] 2.16.840.1.055742.3.579.2.44575-06-3273Nukbioz6606517 2.16.840.1.332376.3.579.2.57512-79-8836Ppbnjwu8158821 2.16.840.1.823712.3.57[id number] 2.16.840.1.325952.3.579.2.98274-75-2514Ewsoeej89486663 2.16.840.1.689483.3.57[id number] 2.16.840.1.592899.3.579.2.[id number] 2.16.840.1.761656.3.579.2.345583-93-1277Oidpmeg9383585 2.16.840.1.142482.3.579.2.9[id number] 2.16.840.1.427907.3.579.2.975544-19-0344Turuwsq6641017 2.16.840.1.436918.3.579.2.9[id number] 2.16.840.1.224543.3.57[id number] Health InsuranceMEBLGPFXUnknowPresbyterian Kaseman Hospital [id number] 2.16.840.1.1[id number] 2.16.840.1.513242.3.579.2.531 [id number] 2.840.1.638664.3.579.2.531 Social History DateTypeDetailFacilityUnknown if ever smokedPerry [employer] Other Start: 07-29-2023 End: 87-76-7084Xai Assigned At [facility] [employer] Backpack Other Start: 72-56-9690Awv [facility]igned At [facility]tart: 02-18-2023 End: 26-23-9355Oenkbob smoking status NHISNever smoked tobaccoNOMS Healthcare Start: 02-18-2023 End: 72-67-6022Gjdslvh use and exposureSmokeless tobacco non-userNOMS Healthcare Start: 10-21-2023 End: 14-24-4131Qngnyey intakeEx-drinker (finding)[facility] HealthcareStart: 07-29-2023 End: 63-51-3464Kkhiwwr of Social functionNOMS HealthcareHow often to you have a drink containing alcohol?Monthly or lessNOMS HealthcareHow many standard drinks containing alcohol do you have on a typical day?1 or 2NOMS HealthcareHow often do you have 6 or more drinks on 1 occasion?NeverNOMS HealthcareStart: 1950 Sex Assigned At BirthNot on fileNOMS HealthcareStart: 08-09-2024 End: 43-67-3847Wothpsgyj beverage intakeCurrent drinker of alcohol (finding) [facility] Work Phone: Start: 50-44-1272Sjlpcgs CommentsocialFayette County Memorial Hospital Work Phone: Start: 07-30-2024 End: 04-23-9858Kwduuaxa to SARS-CoV-2 (event)Not [facility] HospitalStart: 08-31-2022 End: 77-28-6504XxzTsyaqt (finding)[facility] Medical Equipment Procedure CodeEquipment CodeEquipment Original TextEquipment IdentifierDates Arthroplasty, hip, total, anterior approachAcetabular shell ()[id number] FDAStart: 40-32-9775Vvsnswbgeqtq, hip, total, anterior approachOrthopaedic bone screw, non-bioabsorbable, sterile ()[id number] FDAStart: 30-14-1395Pkhetphjhkuw, hip, total, anterior approachOrthopaedic bone screw, non-bioabsorbable, sterile ()[id number] FDAStart: 32-96-6821Hfnlntjftawn, hip, total, anterior approachCeramic femoral head prosthesis ()[id number] FDAStart: 54-75-9451Ygixjfqensfl, hip, total, anterior approachCoated hip femur prosthesis, modular ()[id number] FDAStart: 23-63-3497Ntiaususonwv, hip, total, anterior approachNon-constrained polyethylene acetabular liner ()[id number] FDAStart: 07-05-2024 Goals DatePatient GoalDesired Activity/State Functional Status KbofLfwpffmshwFuchfmTmqkofsd83-89-4437Xhoppqbtnv jiytvu815/72[facility]11-10-2025Vital signs56 08/15/2025 1:18 PM Jeffrey Hendricks [facility] Work Phone: 1(520) 457-742011538754-55-0865LcqoiimsasFayette County Memorial Hospital Work Phone: 1(163) 876-643410028036-65-7585Tcmzdewktv statusPatient at Baseline [facility] Work Phone: Mental Status AjjyWidhroadrgEikthoVaptnahi32-10-6712Shofnkioa functionCognitive Status Patient at BaselineMercy Health Defiance Hospital Work Phone: Clinical Notes 03-06-2021 to 08-15-2025 Note Date & XacpNgfkVbthruyn23-06-2770 History of Present illness Narrative* Yandy Hector MD - 08/15/2025 1:00 PM EST Images from the original note were not included. Chief Complaint: Chief Complaint Patient presents with Follow-up 1 year S/P hip replacement, right This is a patient with history of mitral valve repair and mixed hyperlipidemia. Ex-smoker. Subjective : Review of Systems interval review of systems is negative for chest discomfort pressure tightness heaviness palpitations orthopnea paroxysmal nocturnal dyspnea dependent edema or claudication TIA or CVA type symptoms or bleeding diathesis. Occasional lightheadedness History so Far : Has history of mitral valve repair, 2020 [facility]. Does not recall having much in the [...] mmHg, PA pressure 26/10 120-16. Average cardiac output4.4 L/min, cardiac index 2.94 L/min/m Echocardiogram April [...] to 60% mitral valve area by pressure half- time 1.6 cm peak and mean gradients across mitral inflow 8 and 4 mm respectively trace mitral regurgitation mild tricuspid regurgitation RVSP 30 mmHg left atrium diameter was measured at 2.5 cm left atrial volume index 35mL/m RVSP 27 mmHg Objective Wt Readings from Last 3 Encounters: 08/15/25 50.3 kg (111 lb) 08/09/24 51.5 kg (113 lb 9.6 oz) 08/04/23 50.8 kg (112 lb) Vitals: 08/15/25 1318 08/15/25 1324 BP: 120/60 120/72 BP Location: Left arm Left arm Patient Position: Sitting Standing Pulse: 56 Weight: 50.3 kg (111 lb) Height: 1.626 m (5' 4 ) Physical Exam: GENERAL APPEARANCE: in no acute distress. CHEST: [...] morning biotin 10 mg, 2 times daily CALCIUM CITRATE ORAL 1 tablet, Daily RT carboxymethylcellulose (Refresh Plus) 0.5 % ophthalmic solution 1 drop, As needed denosumab (PROLIA) 60 mg, Every 6 months ergocalciferol (VITAMIN D-2) 50,000 Units, Once Weekly fluoride, sodium, 1.1 % gel USE DIRECTED TWICE A DAY folic acid (FOLVITE) 1 mg, Every morning eniylbjjz-D2-ssH21-algal oil (Metanx, algal oil,) 3 mg-35 mg-2 mg -90.314 mg capsule Take by mouth. levothyroxine (SYNTHROID, LEVOXYL) 50 mcg, Every morning magnesium oxide (MAG-OX) 400 mg, Every morning omega-3 acid ethyl esters (LOVAZA) 2 g, 2 times daily vitamin K2 100 mcg, Daily zinc gluconate 50 mg, Every morning Allergies: Cephalexin February 2025-GFR greater than 60 creatinine 0.59 liver enzymes normal. No lipid profile available Reviewed all available pertinent laboratory data and diagnostic testing results that occurred afterthe last office visit with me Assessment: 1. S/P mitral valve repair Follow Up In Cardiology 2. Mixed hyperlipidemia 3. Bradycardia, unspecified 4. Body mass index (BMI) 19.9 or less, adult 5. Never smoked tobacco Clinical Decision Making: Patient does complain of occasional lightheadedness. She is not orthostatic, but she has bradycardia resting heart rate in the 50s. Will obtain a twelve-lead EKG. If there is evidence of first-degreeAV block, then we will proceed with a 24-hour Holter monitor. Twelve-lead EKG was reviewed, intervals are normal, patient was advised lifestyle modification, increase fluid intake, increase dietary sodium, and if symptoms worsen she understands that she needs to seek medical attention. Comprehensive profile and lipid profile prior to next visit. Follow up : 1 year IJane LPN am scribing for, and in the presence of Dr. Yandy Hector MD, FACC. I, Dr. Yandy Hector MD, FACC, personally performed the services described in the documentation as scribed by Jane Amaya LPN in my presence, and confirm it is both accurate and complete. documented in this [facility] Work Phone: 1(875) 941-930811-10-2025 Instructions* Patient Instructions* Jane Sanchez LPN - 08/15/2025 1:00 PM EST Please bring all medicines, vitamins, and herbal supplements with you when you come to the office. Prescriptions will not be filled unless you are compliant with your follow up appointments or have a follow up appointment scheduled as per instruction of your physician. Refills should be requested at the time of your visit. 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 No treatment is necessary. Recommended regular [...] 1 year skin check documented in this encounterWestern Missouri Mental Health CenterVguphnqobm71-23-6637 Evaluation note* Diagnosis Onset Date Resolution Status Admit Date History of melanoma acuteJune 2024 8:47amHypothyroidism, unspecifiedJanuary cuMarch 28, 2025 8:47amImpacted cerumen, right earacuteJune 2024 8:47am Solar keratosisacuteJune 2024 8:47amExudative age-related macular degeneration, right eye, with active choroidaacuteSeptember 2024 10:09am Left leg painacuteSeptember 2024 10:09am [facility] Work Phone: 1(942) 300-225702-24-2025 History of Present illness Narrative* Braxton Jacobsen NP - 11/29/2024 8:30 AM EST Images from the original note [...] She does have some macular No recent PRASAD BACK PAIN -Tolerable -Intermittent -Noted more when [...] L-METHYLFOLATE CALCIUM PO 1 tablet, Daily RT P-Zpoazngktvhv-Rlsqq-B12-B6 (Metanx) 3-90.314-2-35 MG capsule 1 capsule, Oral, Daily levothyroxine (Synthroid, Levoxyl) 50 MCG tablet Every 24 hours magnesium oxide (MAG-OX) 400 mg, Oral, Nightly Melatonin 2.5 MG chewable tablet Chew. Menaquinone-7 (Vitamin K2) 100 MCG capsule Daily [facility] Natural Products (YumVs Beet Root-Tart Diallo) 250-0.5 [...] Medications Discontinued During This Encounter Medication Reason L-Pbtzgprqphay-Wnevs-B12-B6 (Metanx) 3-90.314-2-35 MG capsule Reorder folic acid (Folvite) 1 MG tablet Reorder ergocalciferol (Vitamin D-2) 1.25 MG (56393 UT) capsule Reorder magnesium oxide (Mag-Ox) 400 [...] HYSTEROSCOPY 07/2021 D+C - Dr. Bernabe at [facility] MITRAL VALVE REPAIR 03/2021 PELVIC LAPAROSCOPY age [...] Oriented to person, place and time. Recent andremote memory are intact. Speech is normal. Language [...] Left pathological reflexes: Reynaldo's absent. Coordination Right: Afvdtr-xx-aaog normal. Rapid alternating movement normal.Left: Oowhjw-wh-gtng normal. Rapid alternating movement normal. Gait Romberg [...] LE consistent with a peripheral neuropathy. In he had an EMG theat showed a mild S1 radiculopathy which can contribute to sensory changes in the feet as well. Overall much improved on current regimen of vitamins. Vitamin D deficiency Supplemented Carpal tunnel syndrome bilaterally Minimal symptoms. Positive Tinel sign bilaterally. Would recommend continued use f splints for prevention Diagnoses and all orders for this visit: Lumbosacral radiculopathy - P-Xghtsyijyazy-Ugwxo-B12-B6 (Metanx) 3-90.314-2-35 MG capsule; Take 1 capsule [...] mouth Daily Disturbance of skin sensation - O-Rggbsdambmno-Nvfnn-B12-B6 (Metanx) 3-90.314-2-35 MG capsule; Take 1 capsule by mouth Daily - Vitamin E 45 MG (100 UNIT) capsule; Take 1 capsule by mouth Daily - biotin 10 MG tablet; Take 4 tablets (40 mg) by mouth Daily Vitamin D deficiency - ergocalciferol (Vitamin D-2) 1.25 MG (99564 UT) capsule; Take 1 capsule (1.25 mg) [...] application topically every 8 (eight) hours Continue B-Jhdeanirwcnf-Cnjmy-B12-B6 (Metanx) 3-90.314-2-35 MG capsule; Take 1 capsule by mouth Daily Continue ergocalciferol (Vitamin D-2) 1.25 MG (18499 UT) capsule; Take 1 capsule (1.25 mg) by mouth1 (one) time per week Recommend using splints for CTS Will repeat Vit D and neuropathy panel next time I will see the patient back in 1 year, or sooner if needed, to make further recommendations documented in this encounterWestern Missouri Mental Health CenterYccqczcteo97-97-4540 History of Present illness Narrative* ARINA Navarro - 11/08/2024 2:20 PM EST Lesion Location: left cheek Duration: noticed last [...] Next Visit: as scheduled documented in this encounterWestern Missouri Mental Health CenterUvzwzphbnw81-39-5854 NotePROCEDURE: XR Bone Length Studies Scanograms COMPARISON: None. HISTORY: UNEQUAL LIMB [...] Brodie Epps MD 10/20/24 7:32 am Technologist: [facility]01-09-2025 History of Present illness Narrative* Dasia Patricia MD - 10/14/2024 1:20 PM EST Skin Check Location: Patient requests a full [...] diagnose the lesion would be to have itremoved and tested. Discussed treatment options including observation vs. excision. Patient elected for observation. Notify office if lesion is enlarging or becomes symptomatic. 3. Lentigines Scattered ramirez macules in sun-exposed areas. The patient was informed that lentigines are benign pigmented lesions that occur on sun-exposed andsun-damaged skin. No treatment is necessary. Recommended regular [...] Next Visit: 6 months documented in this encounterWestern Missouri Mental Health CenterGfpptacnex52-86-8513 History of Present illness Narrative* Jasmyn Purdy MA - 09/14/2024 10:00 AM EST Images from the original note were not included. Thaddeus Mcclendon, DO Obstetrics and Gynecology Thiago Denise Hansensantos 1950 09/14/24 [id number] Yearly Wellness Exam Chief Complaint Patient presents with Gynecologic Exam Medicare yearly. LMP: Age 21 - only regular at age 13-18, was told genetic. Sent to [place] for laparoscopy - no more eggs- early [...] same time. ergocalciferol (Vitamin D-2) 1.25 MG (41989 UT) capsule Take 1 capsule (1.25 mg) [...] 1 tablet by mouth in the morning. C-Zcenobdzhgjf-Czrkp-B12-B6 (Metanx) 3-90.314-2-35 MG capsule Take 1 capsule [...] HYSTEROSCOPY 07/2021 D+C - Dr. Bernabe at [facility] MITRAL VALVE REPAIR 03/2021 PELVIC LAPAROSCOPY age [...] palpable bilaterally, normal nipples bilaterally - everted - prominent change in UOQ - dense - well supported- axilla negative, capillary hemangiomas ABDOMEN: soft, nontender, nondistended, no masses palpable. BACK: no costovertebral angle tenderness, no obvious scoliosis/kyphosis. 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 Signature Raphael Mcclendon D.O. Date 09/14/24 Time 5:00PM. documented in this encounterWestern Missouri Mental Health CenterPxraztgvqb99-36-4058 History of Present illness Narrative* Yandy Hector MD - 08/09/2024 1:00 PM EST Patient was seen by me first in [...] was the diagnosis. Oxycodone was switched to Mcgrath History so Far : Has history of mitral valve repair, 2020 [facility]. Does not recall having much in the [...] mmHg, PA pressure 26/10 120-16. Average cardiac output4.4 L/min, cardiac index 2.94 L/min/m Echocardiogram April [...] to 60% mitral valve area by pressure half- time 1.6 cm peak and mean gradients across mitral inflow 8 and 4 mm respectively trace mitral regurgitation mild tricuspid regurgitation RVSP 30 mmHg left atrium diameter was measured at 2.5 cm left atrial volume index 35mL/m RVSP 27 mmHg Objective Wt Readings from [...] clearance 54 sodium 137 GFR greater than 60creatinine 0.45 potassium 4.0 liver enzymes BNP 111 [...] my direction and personally dictated by me. Saida reviewed the chart and agree that the record accurately reflects my personal performance of the history, physical exam, discussion and plan. documented in this [facility] Work Phone: 1(881) 896-742011-04-2024 Instructions* Patient Instructions* Fox John MA - 08/09/2024 1:00 PM [...] time of your visit. documented in this [facility] Work Phone: 1([phone]) 833-106610-02-2024 History and physical note Author Pedro Quintero [facility] July 07, 2024 6:44amNote Date/TimeOct2023 12:30[place] [address] Hospitalist H&P Signed Patient: Thiago Sabillon MR#: [id number] : 1950 Acct:[id number] Age/Sex: 73 / F Adm Date: 4 Loc: Room: [address] [place] [address] Type: ADM IN Attending Dr: Pedro Quintero DO Copies to: Savannah Wen NP-C MD Pedro Peter, DO~ HPI DATE OF EXAMINATION: 07/06/24 CHIEF COMPLAINT: Dizziness, syncope/unresponsiveness HISTORY OF PRESENT ILLNESS: Patient is a pleasant 73-year-old female with PMH of osteoarthritis, HLD, hypothyroidism, mitral valve repair (2019, in [place]) who is status post left total hip arthroplasty on 07/05/2024. She presents to the emergency department after a witnessed unresponsive episode. She reports an episode of dizziness prior to laying down last night and again felt lightheaded when she got up to the chair this morning. She did eat and drink both after she got home and againthis morning. She reports taking herprescribed oxycodone 5 mg at 7:30 AM, 2.5 mg at 10:30 AM, and 5 mg at 2 PM. Sometime after this, physical therapy was at her home asking her questions when she felt lightheaded and became unresponsive for approximately 30 seconds. She did not lose pulse. She states she could hear, but was unable tospeak. She did not lose bowel or bladder control. She had no headache. No chest pain or shortness of breath. She did feel nauseous, no emesis. She reports she is quite active at baseline, swims, bikes. In the ER, CBC showed mild elevation of WBC 12.8. Coags WNL. Chemistry overallunremarkable. CK6 06.Normal troponin. ECG sinus bradycardia, 47 bpm. Heart rate in the ER ranged from 43-62 per chart review. Blood pressure of 85/48 correlates with when heart rate was 43. CT head was negative for acutefindings. CXR shows no acute cardiopulmonary abnormality. She is admitted to hospitalist service for further evaluation and treatment. Review of Systems Review of Systems Review of systems: 10 point review of systems was obtained and all are negative unless noted below or in the HPI. [facility] Medical History Inguinal hernia Macular degeneration right [...] mg PO DAILY 08/11/17 [History Confirmed 07/07/24] ivdg-uxixy-bh4-jln-jjq-qroy-sterols 375 mg-100 mg-36 mg-54 mg capsule (Glucosamine Chondroitin PLUS) 1 cap PO DAILY 08/11/17 [History Confirmed 07/07/24] mecobalamin-levomefolate calcium-pyridoxal phos 2 mg-3 mg-35 mg tablet (Foltanx)1 tab PO DAILY 08/11/17 [History Confirmed 07/05/24] omega 3,6,9 combination no.7 92 mg (43 mg-22 ln-17im-21vz) chew tablet (Berkley DHA) 1 tab PO DAILY 08/11/17 [History Confirmed 07/07/24] vit A 300 mcg-C 200 mg-E 27 mg-lutein 2 mg and minerals tablet (Eye Health Plus Lutein) 1 tab PO DAILY 08/11/17 [History Confirmed 07/07/24] denosumab 60 mg/mL subcutaneous syringe (Prolia) 60 mg subcut [id number] 05/14/24 [History Confirmed 07/05/24] vitamin K2 100 [...] 17 g PO daily 7 days#7 packets 06/23/24[Rx Confirmed 07/07/24] sennosides 8.6 mg-docusate sodium 50 mg tablet (Senokot-S) 2 tab PO daily 30 days #60 tabs 06/23/24[Rx Confirmed 07/07/24] tramadol 50 mg tablet 50 [...] % (Auto) 10.0 % (.) 07/06/24 17:05 Edwards % (Auto) 10.1 % (.) 07/06/24 17:05 Eos % (Auto) 0.4 % (.) 07/06/24 17:05 Baso % (Auto) 0.3 % (.) 07/06/24 17:05 Nucleat RBC Rel Count 0.0 /100 WBC (0-0.5) 07/06/24 17:05 Neut # (Auto) 10.2 x10E3/uL (1.8-7.7) H 07/06/24 17:05 Lymph # (Auto) 1.3 x10E3/uL (1.00-4.8) 07/06/24 17:05 Edwards # (Auto) 1.3 x10E3/uL (0.0-0.8) H 07/06/24 [...] review. Blood pressure of 85/48 correlates with whenheartrate was 43. CT head was negative for acute findings. History of MV repair (record shows 2020,patient states 2019). Denies other cardiac history. ? [...] this point she has failed outpatient therapy andwill be attempting for inpatient rehab if patient is agreeable. - Pedro Quintero DO IP vs OBS Justification Based on differential dx, clinical care plan, and risk of adverse events, if untreated, in my clinical judgement this patient requires an acute care setting as: INPATIENT because of an expectation ofan over 2 midnight stay. Estimated length of stay (# of days): 3 Documented By: TORI Merritt 07/06/24 2 345 Signed By: <Electronically signed by TORI Wen> 07/07/24 0106 <Electronically signed by Pedro Quintero DO> 07/07/24 0644 [facility] Work Phone: [phone] [id number] Evaluation note* Diagnosis Onset Date Resolution Status Admit Date Primary osteoarthritis of left hip acuteSeptember 2023 2:35pmBradycardiaacuteOctober 2023 11:13pmPrimary osteoarthritis of left hipacuteOctober 2023 11:13pmS/P total left hip arthroplastyacuteOctober 2023 11:13pmSyncoperesolvedOctober 2023 11:13pmAftercare following left hip joint replacement surgeryacuteOctober 2023 1:24pmS/P total left hip arthroplastyacuteOctober 2023 1:24pmLeft leg swellingacuteOctober 2023 11:31amAftercare following left hip joint replacement surgeryacuteNovember 2023 10:51amS/P total left hip arthroplastyacuteNovember 2023 10:51am [facility] Work Phone: 1(618) 820-140609-17-2024 History of Present illness Narrative* Viraj Barry, DO - 06/22/2024 9:30 AM EDT Images [...] same time. ergocalciferol (Vitamin D-2) 1.25 MG (39201 UT) capsule Take 1 capsule (1.25 mg) [...] 1 tablet by mouth in the morning. Q-Svajkfsltvqb-Rgufy-B12-B6 (Metanx) 3-90.314-2-35 MG capsule Take 1 capsule [...] Dr. Barry/lauro Barry D.O. documented in this encounterWestern Missouri Mental Health [id number] Hospital Discharge instructionsAmbulatory Orders* Referral to General Surgery Time Frame: 12/18/23, Location: None [facility] Work Phone: 1(473) 963-239902-13-2024 History of Present illness Narrative* Viraj Barry [...] same time. ergocalciferol (Vitamin D-2) 1.25 MG (55538 UT) capsule Take 1 capsule (1.25 mg) [...] 1 tablet by mouth in the morning. P-Gfcahhdwpbll-Bppeo-B12-B6 (Metanx) 3-90.314-2-35 MG capsule Take 1 capsule [...] Dr. Barry/lauro Barry D.O. documented in this encounterWestern Missouri Mental Health [id number] Evaluation note* Encounter Date Diagnosis Assessment Notes Treatment Notes Treatment Clinical Notes Sep, Sore throat (ICD-10 - J02.9) Sep,OVID (ICD-10 - U07.1)Upon evaluation patient became very chilled, noticely shakey and light headed. Patient was laid down, 1,000 mg Tylenol provided. 02 2L NC applied. O2 84%, EMS called O2 was increased to 12L NRB, continued at 84% then was increased to 15L NRB O2 maintaining at 84%. Patient denies CP, SOB throughout.EMS transferred to [place] [facility] in stable condition. [facility] Other 08-17-2023 Evaluation note* Encounter Date Diagnosis Assessment Notes Treatment Notes Treatment Clinical Notes May, Preoperative clearance (ICD-10 - Z01.818) Denies issues with surgeries in the past. She is moving forward with the hip replacement. Reviewed preop labs earlier this month. Able to proceed w surgery. [facility] Other 08-09-2023 Evaluation note* Encounter Date Diagnosis Assessment Notes Treatment Notes Treatment Clinical Notes May, Primary osteoarthritis of right hip (ICD-10 - M16.11) Discussed putting off surgery. Will obtain labs from [place] for her information and reassurance that they are normal, but will reconsider hip replacement with Dr. Barry in future. May,OtherPt notes mild foot pain, declines brusing, treatment, or desire for intervention on R foot pain.Oct,Hypothyroidism, unspecified (ICD-10 - E03.9)refilled rx - chronic stable condition [facility] Other 07-21-2023 NotePatient here for surgery clearance. She will be having a right RACHEL with Dr. Barry at [facility]. She denies any cardiac symptoms at this time. No recent testing. Review of Systems Musculoskeletal: Positive for arthritis, back pain and joint pain. All other systems reviewed and are negative.[facility] 04-25-2023 NoteCardiology Follow Up Progress Note [...] a day. ergocalciferol (Vitamin D-2) 1.25 MG (52681 Units) capsule Take 1 capsule by mouth [...] Strict return precautions wer (more content not included)...[facility]07-19-2023 Evaluation note* Encounter Date Diagnosis Assessment Notes Treatment Notes Treatment Clinical Notes Apr, Autoimmune thyroiditis (ICD-10 - E06.3) Check labs w preoperative requirements. Apr,rimary osteoarthritis of right hip (ICD-10 - M16.11)No surgery date yet. Cardio clearance on 04/25. 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 [facility] Other 04-05-2023 Evaluation note* Encounter Date Diagnosis Assessment Notes Treatment Notes Treatment Clinical Notes Jan, Right hip pain (ICD-10 - M25.551 ) Jan,rimary osteoarthritis of right hip (ICD-10 - M16.11) Jan,Other1. We had a long discussion with the patient today concerning their right hip osteoarthritis. The radiographs do show osteoarthritis of the hip. I explained to the patient that her right hip x-rays certainly could explain the groin pain and that this pain that she has in her groin that started withthe heart surgery may be coincidental because I [...] and home regimen. Patient preferred no PT atthis time. 5. Injections: Discussed injections as a [...] she wants to proceed with surgery and thenwe order 6 screening labs in April. She should then follow-up with me in the office 2 weeks after she obtains a screening labs and then we can discuss surgery at that time. [facility] Other 02-06-2023 Evaluation note* Encounter Date Diagnosis Assessment Notes Treatment Notes Treatment Clinical Notes Nov, Foreign body of left ear, initia l encounter (ICD-10 - T16.2XXA) used forceps to remove part of hearing aid from L canal Nov,Impacted cerumen, right ear (ICD-10 - H61.21)attempted to manually remove - has very hard cerumen. Recommended OTC debrox. [facility] Other 07-05-2021 NoteMR#: [id number] I [facility] Pt. Name: Thiago Sabillon Admitted: 03/22/2021 [...] CONDITION: Good. Stable. DISCHARGE DISPOSITION: Home with [facility]. DISCHARGE MEDICATIONS: Alendronate 35 mg once weekly, aspirin 325 mg once daily, atorvastatin 80 mg once daily, biotin oral 66444 mcg once daily, vitamin D2 1250 mcg [...] Love CNP Date Trans: 04/09/2021 05:47 P/nader [id number] [facility]06-01-2021 History general Narrative - Reported* Type Description Date Medical History Arthritis Medical Historyheart murmurSurgical HistoryHeart murmur repair03/2021 [facility] Other 06-01-2021 History general Narrative - Reported* Type Description Date Medical History Arthritis Medical Historyheart murmurSurgical HistoryHeart murmur repairurgical Historymelanoma excisionSurgical Historycarpal tunnel release rightSurgical Historyhernia [facility] Other Evaluation noteNo assessment information available [facility] Work Phone: Evaluation noteNo InformationNortPenn State Health [facility] Other Evaluation note* Diagnosis Primary osteoarthritis of right hip- Primary Status post total hip replacement, right documented in this encounter [facility]* Diagnosis Onset Date Resolution Status Right hip pain acuteSebaceous cystacute [facility] Work Phone: Evaluation note* Diagnosis Onset Date Resolution Status Right hip pain acuteSebaceous cystacuteLeft hip painacute [facility] Work Phone: Evaluation note* Diagnosis Onset Date Resolution Status Primary osteoarthritis of left hip acute [facility] Work Phone: Evaluation note* Diagnosis Onset Date Resolution Status Primary osteoarthritis of left hip acuteSinusitis, acute maxillaryacute [facility] Work Phone: Evaluation note* Diagnosis Onset Date Resolution Status Sinusitis, acute maxillary acutePrimary osteoarthritis of left hipacute [facility] Work Phone: Evaluation note* Diagnosis Onset Date Resolution Status Sinusitis, acute maxillary acutePrimary osteoarthritis of left hipacuteMitral valve replacedacute Preoperative clearanceacutePrimary osteoarthritis of left hipacuteTinea pedis acute [facility] Work Phone: Evaluation note* Diagnosis Onset Date Resolution Status Sinusitis, acute maxillary acutePrimary osteoarthritis of left hipacuteMitral valve replacedacute Preoperative clearanceacutePrimary osteoarthritis of left hipacuteTinea pedis acutePrimary osteoarthritis of left hipacute [facility] Work Phone: Evaluation note* Diagnosis Onset Date Resolution Status Primary osteoarthritis of left hip acuteMitral valve replacedacutePreoperative clearanceacutePrimary osteoarthritis of left hipacuteTinea pedisacutePrimary osteoarthritis of left hipacute [facility] Work Phone: Evaluation note* Diagnosis Onset Date Resolution Status Primary osteoarthritis of left hip acuteMitral valve replacedacutePreoperative clearanceacutePrimary osteoarthritis of left hipacuteTinea pedisacutePrimary osteoarthritis of left hipacute BradycardiaacutePrimary osteoarthritis of left hipacuteS/P total left hip arthroplastyacuteSyncopeacute [facility] Work Phone: Evaluation note* Diagnosis Onset Date Resolution Status Mitral valve replaced acutePreoperative clearanceacutePrimary osteoarthritis of left hipacuteTinea pedisacutePrimary osteoarthritis of left hipacuteBradycardiaacutePrimary osteoarthritis of left hipacuteS/P total left hip arthroplastyacuteSyncope resolvedS/P total left hip arthroplastyacute [facility] Work Phone: Evaluation note* Diagnosis Onset Date Resolution Status Mitral valve replaced acutePreoperative clearanceacutePrimary osteoarthritis of left hipacuteTinea pedisacutePrimary osteoarthritis of left hipacuteBradycardiaacutePrimary osteoarthritis of left hipacuteS/P total left hip arthroplastyacuteSyncope resolvedAftercare following left hip joint replacement surgeryacuteS/P total left hip arthroplastyacute [facility] Work Phone: Evaluation note* Diagnosis S/P hip [...] Unspecified hearing loss documented in this encounter [facility] Work Phone: Evaluation note* Diagnosis Primary osteoarthritis of right hip Status post total hip replacement, right documented in this encounter [facility]Evaluation note* Diagnosis Encounter for gynecological examination without abnormal finding Encounter for Papanicolaou smear of cervix Breast cancer screening by mammogram Osteoporosis, post-menopausal ([facility]/HCC) Senile osteoporosis documented in this encounter [facility] [...] Nevus, non-neoplastic documented in this encounter [facility]Evaluation [facility]* Diagnosis S/P hip replacement, right- Primary Heart murmur Undiagnosed cardiac murmurs S/P mitral valve repair Other postprocedural status Mixed hyperlipidemia S/P mitral valve repair Other postprocedural status Mixed hyperlipidemia Bradycardia, unspecified Body mass index (BMI) 19.9 or less, adult Never smoked tobacco documented in this encounter [facility] Work Phone: History general Narrative - Reported* Type Description Date Medical History Arthritis Medical Historyheart murmurMedical HistoryAutoimmune thyroiditisMedical History Personal history of malignant melanoma of skinMedical HistoryMitral valve regurgitationMedical HistoryThickened endometriumMedical HistoryMitral valve replacedMedical HistoryMalposition of uterusSurgical HistoryHeart murmur repair urgical Historymelanoma [id number], 2019Surgical Historycarpal tunnel release rightSurgical HistoryherniaSurgical HistoryDILATION AND CURETTAGE OF UTERUS - [id number] 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 [facility] Other History general Narrative - Reported* Type Description Date Medical History Arthritis Medical Historyheart murmurMedical HistoryAutoimmune thyroiditisMedical History Personal history of malignant melanoma of skinMedical HistoryMitral valve regurgitationMedical HistoryThickened endometriumMedical HistoryMitral valve replacedMedical HistoryMalposition of uterusSurgical HistoryHeart murmur repair urgical Historymelanoma [id number], 2019Surgical Historycarpal tunnel release rightSurgical HistoryherniaSurgical HistoryDILATION AND CURETTAGE OF UTERUS - [id number] HistoryRight Hip Re[/2023 Hospitalization HistorySEE SURGICAL [facility] Other Hospital Discharge instructionsAmbulatory Orders* Initiate Home [...] medication regimen [facility] be [facility] Work Phone: Reason for referral (narrative)No reason for referral information availableDoctors Hospital Work Phone: Summary Purpose Family History Relationship Condition Age at Onset Recorded Date/T daya father Unknown Not SpecifiedDeceasedUnknown Relationship Condition Age at Onset Recorded Date/T daya father Unknown motherDeceasedUnknown Relationship Condition Age at Onset Recorded Date/T daya father Unknown motherDeceasedUnknownHypertensionUnknownRenal failureUnknownfamily memberMacular degenerationUnknownsisterMalignant neoplasmUnknownfamily memberMalignant neoplasmUnknowngrandparentMalignant neoplasmUnknown Advance Directives Advance Directive Response Recorded Date/ Time Advance Directives No August 08, 2017 2:29pm Advance Directive Response Recorded Date/ Time Advance Directives No August 08, 2017 1:29pm Chief Complaint and Reason for Visit Chief Complaint Headache, Ear Pain Amb Documentation Amb Documentation Lump on HeadReason for VisitRight hip pain Sebaceous cyst Chief Complaint Amb Documentation Amb Documentation Lump on Head OP AML ANALYST LT HIP PAIN M25.552 - Pain in left hipReason for VisitRight hip pain Sebaceous cyst Left hip pain Chief Complaint OP AML ANALYST LT HIP PAIN M25.552 - Pain in left hip ear pressureReason for VisitPrimary osteoarthritis of left hip Chief Complaint OP AML ANALYST LT HIP PAIN M25.552 - Pain in left hip ear pressure 3 MONTH RECHECKReason for VisitPrimary osteoarthritis of left hip Sinusitis, acute maxillary Chief Complaint ear pressure 3 MONTH RECHECK presurgical clearance/ lft total hip Dr Dixon for VisitSinusitis, acute maxillary Primary osteoarthritis of left hip Chief Complaint ear pressure 3 MONTH RECHECK presurgical clearance/ lft total hip Dr Borrero Hip painReason for VisitSinusitis, acute maxillary Primary osteoarthritis of left hip Mitral valve replaced Preoperative clearance Primary osteoarthritis of left hip Tinea pedis Chief Complaint ear pressure 3 MONTH RECHECK presurgical clearance/ lft total hip Dr Borrero Hip pain Pre op LTH H&P LTHAReason for VisitSinusitis, acute maxillary Primary osteoarthritis of left hip Mitral valve replaced Preoperative clearance Primary osteoarthritis of left hip Tinea pedis Primary osteoarthritis of left hip Chief Complaint ear pressure 3 MONTH RECHECK presurgical clearance/ lft total hip Dr Borrero Hip pain Pre op LTH H&P LTHA ProlongedReason for VisitSinusitis, acute maxillary Primary osteoarthritis of left hip Mitral valve replaced Preoperative clearance Primary osteoarthritis of left hip Tinea pedis Primary osteoarthritis of left hip Chief Complaint 3 MONTH RECHECK presurgical clearance/ lft total hip Dr Borrero Hip pain Pre op LTH H&P LTHA Prolonged Hip pain Hip painReason for VisitPrimary osteoarthritis of left hip Mitral valve replaced Preoperative clearance Primary osteoarthritis of left hip Tinea pedis Primary osteoarthritis of left hip Chief Complaint 3 MONTH RECHECK presurgical clearance/ lft total hip Dr Borrero Hip pain Pre op LTH H&P LTHA Prolonged Hip pain Hip pain unresponsiveReason for VisitPrimary osteoarthritis of left hip Mitral valve replaced Preoperative clearance Primary osteoarthritis of left hip Tinea pedis Primary osteoarthritis of left hip Bradycardia Primary osteoarthritis of left hip S/P total left hip arthroplasty Syncope Chief Complaint presurgical clearanc e/ lft total hip Dr Borrero Hip pain Pre op LTH H&P LTHA Prolonged Hip pain Hip pain unresponsive 2 WK POST OP LTHAReason for VisitMitral valve replaced Preoperative clearance Primary osteoarthritis of left hip Tinea pedis Primary osteoarthritis of left hip Bradycardia Primary osteoarthritis of left hip S/P total left hip arthroplasty Syncope S/P total left hip arthroplasty Chief Complaint presurgical clearanc e/ lft total hip Dr Borrero Hip pain Pre op LTH H&P LTHA Prolonged Hip pain Hip pain unresponsive 2 WK POST OP LTHAReason for VisitMitral valve replaced Preoperative clearance Primary osteoarthritis of [...] left hip arthroplasty August 18, 2024 10:51am Chief Complaint Admit Date spot on leg March 28, 2025 8:47 am Twisted leg, Difficult to lift June 23, 2025 10:09am Reason for Visit Admit Date History of melanoma March 28, 2025 8:47 am Hypothyroidism, unspecified March 28 025 8:47am Impacted cerumen, right ear March 28 025 8:47am Solar keratosis March 28, 2025 8:47 am Exudative age-related macula r degeneration, right eye, with active choroida June 23, 2025 10:09am Left leg pain June 23, 2025 10:09am Chief Complaint Admit Date Twisted leg, Difficult to lift June 23, 2025 10:09am 1 YEAR POST OP July 01, 2025 10:00am Z96.642 - Presence of left artificial hi p joint July 01, 2025 10:31am Reason for Visit Admit Date Exudative age-related macula r degeneration, right eye, with active choroida June 23, 2025 10:09am Left leg pain June 23, 2025 10:09am Aftercare following left hip joint repla cement surgery July 01, 2025 10:00am S/P total left hip arthroplasty Septembe r 2024 10:00am Additional Source Comments INFORMATION SOURCE (unrecogn ized section and content) DATE CREATED AUTHOR 12/27/2021 [facility] DATE CREATED AUTHOR AUTHOR'S ORGANIZ ATION 03/14/2023 [facility] DATE CREATED AUTHOR AUTHOR'S ORGANIZ ATION 05/19/2023 [facility] DATE CREATED AUTHOR AUTHOR'S ORGANIZ ATION 10/29/2024 [facility] DATE CREATED AUTHOR AUTHOR'S ORGANIZ ATION 06/22/2025 [facility] DATE CREATED AUTHOR AUTHOR'S ORGANIZ ATION 07/16/2025 [facility] DATE CREATED AUTHOR AUTHOR'S ORGANIZ ATION 08/16/2025 [facility] Ambulatory REASON FOR VISIT (unrecogniz ed section and content) ReasonCommentsFollow-upReasonCommentsAnnual ExamSpecialtyDiagnoses / Procedures Referred By ContactReferred To ContactCardiology Diagnoses Heart murmur S/P mitral valve repair Procedures Follow Up In Cardiology Yandy Hector MD Phone: tel: fax: Yandy Hector MD [address] [place] [address] Phone: tel: fax: Referral IDStatusReasonStart DateExpiration DateVisits RequestedVisits [id number]/30/[id number] Exam Medicare yearly.LMP: Age 21 - only regular at age 13-18, was told genetic. Sent to [place] for laparoscopy - no more eggs- early menopause. Thickened uterine lining - had hyst D+C 07/2021HRT: NoneLast pap 09-13-22 neg.Last mammogram 04-02-24 [facility] by PCP.Denies breast or urinary concerns.constipationC/o ongoing constipation since hip replacement 06/2024. Has tried OTC stool softeners, but not much relief.Weight GainQuestions weight going down during the day, even though she has been told weight is lowest in the AM. Water retention?Reason CommentsSkin CheckReasonCommentsSuspicious Skin LesionReasonCommentsFollow-up1 year S/P hip replacement, rightSpecialtyDiagnoses / ProceduresReferred By ContactReferred To ContactCardiology Diagnoses S/P mitral valve repair Procedures Follow Up In Cardiology Yandy Hector MD [address] [place] [address] Phone: tel: fax: Yandy Hector MD [address] [place] [address] Phone: tel: fax: Referral IDStatusReasonStart DateExpiration DateVisits RequestedVisits [id number]/4/202411/4/202511 Care Teams (unrecognized sec tion and content) Team Status: Active Member Role Status Dates Kallie Chase MD Primary Care Provider Active Team Status: Inactive Member Role Status Dates Kallie Chase MD Primary Care Provider Active Start: January 16, 2024 End: January 15Freddie Young II ProviderActiveStart: January 16, 2024 End: January 16, 2024 Team Status: Inactive Member Role Status Dates Kallie Chase MD Primary Care Provide r, Attending Provider Active Start: April 02, 2024 End: April 02, 2024 Team Status: Inactive Member Role Status Dates Kallie Chase MD Primary Care Provider Active Start: April 15, 2024 End: April 15Freddie Young II ProviderActiveStart: April 15, 2024 End: April 15, 2024 Team Status: Active Member Role Status Williams Chase MD Primary Care Provider Active Start: December 04, 2023 Eduin Cramer ProviderActiveStart: December 04, 2023 Team Status: Active Member Role Status Williams Chase MD Primary Care Provider Active Start: December 15, 2023 Maura Sethi RMAAtchristofer ProviderActiveStart: December 15, 2023 Team Status: Inactive Member [...] Care Provider Active Start: January 16, 2024 Freddie Collins II ProviderActiveStart: January 16, 2024 Team Status: Inactive Member Role Status Dates Kallie Chase MD Primary Care Provider Active Freddie Collins II ProviderActive Team Status: Inactive Member Role Status Dates Kallie Chase MD Primary Care Provider Active Freddie Dunn ProviderActiveTeam MemberRelationshipSpecialtyStart DateEnd Date Kallie Chase MD [address] [place] [address] PCP - [facility]02/24/23Team MemberRelationshipSpecialtyStart DateEnd Date Kallie Chase MD [address] [place] [address] PCP - [facility] Medicine02/24/23 Team Status: Inactive Member Role Status Dates Jennifer Mccarthy APRN Attending Provider Active Sta rt: October 03, 2023 End: October 03, 2023 Team Status: Active Member Role Status Dates Kallie Chase MD Primary Care Provider Active Start: April 16, 2024 Freddie Collins II ProviderActiveStart: April 16, 2024 Team Status: Inactive Member Role Status Dates Kallie Chase MD Primary Care Provide r, Attending Provider Active Start: May 14, 2024 End: May 14, 2024 Team Status: Inactive Member Role Status Dates Kallie Chase MD Primary Care Provider Active Start: June 21, 2024 End: June 21obert M [place] II, MDAttending ProviderActiveStart: June 21, 2024 End: June 21, 2024 Team Status: Active Member Role Status Dates Kallie Chase MD Primary Care Provider Active Start: June 24, 2024 Vernell Alvarez II, MDAttending ProviderActiveStart: June 24, 2024 Team Status: Inactive Member Role Status Dates Kallie Chase MD Primary Care Provider Active Start: June 24, 2024 End: June 24jesus Alvarez II, MDAttending ProviderActiveStart: June 24, 2024 End: June 24, 2024 Team Status: Inactive Member Role Status Dates Kallie Chase MD Primary Care Provider Active Start: June 25, 2024 End: June 25jesus Alvarez II, MDAttending ProviderActiveStart: June 25, 2024 End: June 25, 2024 Team Status: Active Member Role Status Dates Kallie Chase MD Primary Care Provider Active Start: July 05, 2024 Vernell Alvarez II, MDAttending Provider, Other ProviderActiveStart: July 05, 2024 Team Status: Inactive Member Role Status Dates Kallie Chase MD Primary Care Provider Active Start: July 05, 2024 End: July 05jesus Alvarez II, MDAttending ProviderActiveStart: July 05, 2024 End: July 05, 2024 Team Status: Active Member Role Status Dates Jose Guthrie PA-C Emergency Provider Active Start: July 06, 2024 Marcello Peter Care ProviderActiveStart: July 06, 2024 Michelle Parra Provider, Attending ProviderActiveStart: July 06, 2024 Team Status: Inactive Member Role Status Dates Jose Guthrie PA-C Emergency Provider Active Start: July 06, 2024 End: July 07, 2024Marcello Peter Care ProviderActiveStart: July 06, 2024 End: July 07, 2024Michelle Parra ProviderActiveStart: July 06, 2024 End: July 07, 2024Shaun Yang MDAttending ProviderActiveStart: July 06, 2024 End: July 07, 2024 Team Status: Inactive Member Role Status Dates Kallie Chase MD Primary Care Provider Active Start: July 21, 2024 End: July 21jesus Alvarez II, MDAttending ProviderActiveStart: July 21, 2024 End: July 21, 2024 Team Status: Inactive Member Role Status Dates Kallie Chase MD Primary Care Provide r, Attending Provider Active Start: July 22, 2024 End: July 22, 2024Team MemberRelationshipSpecialtyStart DateEnd Date Kallie Chase MD [address] [place] [address] PCP - GeneralFamily Issdolfg73/30/23 Team Status: Active Member Role Status Dates Kallie Chase MD Primary Care Provider Active Start: August 18, 2024 Vernell Alvarez II, MDAttending ProviderActiveStart: August 18, 2024 Team Status: Inactive Member Role Status Dates Klalie Chase MD Primary Care Provider Active Start: August 18, 2024 End: August 18jesus Alvarez II, MDAttending ProviderActiveStart: August 18, 2024 End: August 18, 2024Team MemberRelationshipSpecialtyStart DateEnd Date Kallie Chase MD [address] [facility] [place] [phone] PCP - GeneralFamily Medicine02/24/23Team MemberRelationshipSpecialtyStart DateEnd Date Kallie Chase MD [address] [facility] [place] [phone] PCP - GeneralFamily Medicine02/24/23Team MemberRelationshipSpecialtyStart DateEnd Date Kallie Chase MD [address] [facility] [place] [phone] PCP - GeneralFamily Medicine02/24/23Team MemberRelationshipSpecialtyStart DateEnd Date Kallie Chase MD [address] [facility] [place] [place] [address] PCP - GeneralFamily Medicine02/24/23Team MemberRelationshipSpecialtyStart DateEnd Date Kallie Chase MD [address] [facility] [place] [address] PCP - GeneralFamily Medicine02/24/23Team MemberRelationshipSpecialtyStart DateEnd Date Kallie Chase MD [address] [facility] [place] [address] PCP - GeneralFamily Medicine02/24/23Team MemberRelationshipSpecialtyStart DateEnd Date Kallie Chase MD [address] [facility] [place] [place] [address] PCP - GeneralFamily Medicine02/24/23Team MemberRelationshipSpecialtyStart DateEnd Date Kallie Chase MD [address] [place] [phone] PCP - GeneralFamily Medicine02/24/23Team MemberRelationshipSpecialtyStart DateEnd Date Kallie Chase MD [address] [place] [phone] PCP - GeneralFamily Medicine02/24/23 Team Status: Inactive Member Role Status Dates Kallie Chase MD Primary Care Provider Active Start: March 28, 2025 End: March 28, 2025Kallie Chase MDAttcritical access hospital ProviderActiveStart: March 28, 2025 End: March 28, 2025 Team Status: Inactive Member Role Status Dates Kallie Chase MD Primary Care Provider Active Start: June 23, 2025 End: June 23, 2025Freddie Peter ProviderActiveStart: June 23, 2025 End: June 23, 2025 Team Status: Inactive Member Role Status Dates Kallie Chase MD Primary Care Provider Active Start: July 01, 2025 End: July 01, 2025Vernell Bhupendra Freddie Alvarez II ProviderActiveStart: July 01, 2025 End: July 01, 2025 Team Status: Active Member Role Status Dates Kallie Chase MD Primary Care Provider Active Start: July 01, 2025 Freddie Collins II ProviderActiveStart: July 01, 2025 Team MemberRelationshipSpecialtyStart DateEnd Date Kallie Chase MD [address] [place] [address] PCP - GeneralFamily [id number]/30/23 Goals (unrecognized section and content) Goals may [...] BE BASED ON THE PRIMARY CLINICAL RECORDS. [facility] [employer] provides no warranty or guarantee of the accuracy or completeness of information in this document.
[2025-08-23 12:14] LABS: Blood Urea Nitrogen 24.0 mg/dL (7.0-18.0); Calcium 8.5 mg/dL (8.5-10.1); Estimated GFR (African America >60 (>=60 mL/min/1.73m^2); Estimated GFR (Non-African Ame >60 (>=60 mL/min/1.73m^2); Magnesium 2.0 mg/dL (1.8-2.4)
== END 2025-08-23 10:17 | disposition home or self-care (01) ==
PROVIDERS: PCP Family Medicine; Visit Provider Registered Nurse
DX: M81.0 Age-related osteoporosis without current pathological fracture (principal); Z79.899 Other long term (current) drug therapy
CPT/HCPCS: 36415; 82310; 82565; 83735; 84100; 84520